=== PATIENT | male | born 1945 | race Caucasian/White ===

== ENCOUNTER → 2018-07-28 10:40 | Outpatient (BNVA) | payer MEDICARE, BC, SELFPAY | PROVIDERS: PCP Internal Medicine; Visit Provider Surgery | DX: D48.5 Neoplasm of uncertain behavior of skin (principal) | CPT/HCPCS: 99213 ==

== ENCOUNTER 2018-09-10 14:37 | Outpatient (REF) | payer MEDICARE, BC, SELFPAY ==
[2018-09-10 21:51] LABS: Hemoglobin A1C 5.9 % (4.5-6.2)
[2018-09-10 22:29] LABS: Anion Gap 8.5 mmol/L (3-11); BUN 21 mg/dL (7-18); CO2 28.5 mmol/L (21.0-32.0); CREATININE 1.15 mg/dL (0.70-1.30); Calcium 9.4 mg/dL (8.5-10.1); Chloride 105 mmol/L (98-107); Glucose 91 mg/dL (70-100); Potassium 4.5 mmol/L (3.5-5.1); Sodium 142 mmol/L (136-145); TSH 1.12 uIU/mL (0.358-3.74); Vitamin B12 444 pg/mL (193-986)
[2018-09-13 13:25] LABS: Albumin 64.3 % (55.8-66.1); Total Protein 6.8 g/dl (6.3-8.2)
== END 2018-09-10 14:57 ==
LOC: NCHCN 14:37
PROVIDERS: PCP Internal Medicine; Visit Provider Internal Medicine
DX: G60.9 Hereditary and idiopathic neuropathy, unspecified (principal); Z86.2 Personal history of diseases of the blood and blood-forming organs and certain disorders involving the immune mechanism
CPT/HCPCS: 80048; 82607; 83036; 83735; 84165; 84443

== ENCOUNTER 2018-09-14 10:14 | Outpatient (REF) | payer MEDICARE, BC, SELFPAY ==
[2018-09-16 12:30] LABS: Hepatitis C Ab w Rflx HCV PCR Negative (NEGAT)
[2018-09-16 15:17] LABS: Albumin 64.9 % (55.8-66.1); Total Protein 5.8 g/dl (6.3-8.2)
== END 2018-09-14 10:34 ==
LOC: NCHCN 10:14
PROVIDERS: PCP Internal Medicine; Visit Provider Internal Medicine
DX: G60.9 Hereditary and idiopathic neuropathy, unspecified (principal); R03.0 Elevated blood-pressure reading, without diagnosis of hypertension; M72.2 Plantar fascial fibromatosis; F41.9 Anxiety disorder, unspecified; Z11.59 Encounter for screening for other viral diseases
CPT/HCPCS: 86803; 84165

== ENCOUNTER → 2018-11-26 12:47 | Outpatient (BNVA) | payer MEDICARE, BC, SELFPAY | PROVIDERS: PCP Internal Medicine; Referring Provider Internal Medicine; Visit Provider Surgery | DX: L72.0 Epidermal cyst (principal) | CPT/HCPCS: 99212; 99213 ==

== ENCOUNTER → 2018-12-03 12:58 | Outpatient (BNVA) | payer MEDICARE, BC, SELFPAY | PROVIDERS: PCP Internal Medicine; Referring Provider Internal Medicine; Visit Provider Surgery | DX: L72.8 Other follicular cysts of the skin and subcutaneous tissue (principal) | CPT/HCPCS: 11420 ==

== ENCOUNTER 2018-12-03 14:17 | Outpatient (REF) | payer MEDICARE, BC, SELFPAY ==
--- NOTE | 2018-12-03 13:15 | SKI_PTH ---
PATIENT: Jens Ayala LOC: [facility] U#:[id number] AGE/SX: 73/M ROOM: RE12/03/[address]: Taryn Conti MD : [id number] BED: DIS: 12/03/2018 SPEC #: [id number] RECD: 12/03/18 17:25 STATUS: GISELA REJeni #: [id number] DUNIA: 12/03/18 13:[address]: Taryn Conti DEPT: Surgical Specimen RECD BY: Aleksandra Pablo ENTERED: 12/03/18 17:26 SP TYPE: SKI OTHR DR: Collin Aburto Tissues: 1 - SKIN CYST/TAG/DEBRIDEMENT Procedures: SKIN BIOPSY LEVEL 3 Comments: [id number]
== END 2018-12-03 14:37 ==
LOC: LBN 14:17
PROVIDERS: PCP Internal Medicine; Visit Provider Surgery
DX: L72.8 Other follicular cysts of the skin and subcutaneous tissue (principal)
CPT/HCPCS: 88304

== ENCOUNTER 2019-02-08 09:14 | Emergency (ER) | payer MEDICARE, BC, SELFPAY ==
--- NOTE | 2019-02-08 09:23 | W.ED.GENAD ---
Discharge Plan Disposition Patient Disposition: HOME Condition: Improving Discharge Details Chief Complaint: Cellulitis Clinical Impression: Abscess Primary Care Provider: Collin Aburto ED Provider: Tanna Esteves Home Meds and New Rx's Prescriptions: Continued alprazolam [Xanax] 0.25 mg tablet 0.125 mg PO BID RF: 0 Narcan 4 mg/actuation spray,non-aerosol 1 spray ADEN ONCE PRNRF: 0 eszopiclone [Lunesta] 3 MG tablet 3 mg PO DAILY RF: 0 amitriptyline 100 MG tablet 100 mg PO DAILY RF: 0 atorvastatin [Lipitor] 20 MG tablet 20 mg PO HS RF: 0 tamsulosin 0.4 MG capsule 0.8 mg PO HS RF: 0 hydrocodone-acetaminophen 1 TAB tablet 1 tab PO PRN PRNRF: 0 Discharge Instructions Instructions: Abscess (ED) Additional Instructions: You have declined drainage at this time. As this is improving, this is a very reasonable course. Keep area clean. Continue to monitor for worsening symptoms including increased pain, fevers/chills, spreading of the redness. If these or other new/worsening symptoms arise please seek care urgently once again. Please follow up with primary care Thursday for reevaluation. Referrals: Collin Aburto MD [Primary Care Provider] - Medical Decision Making Patient is 73-year-old male presents today with chief complaint of abscess in the right buttock. He reports he first noticed the symptoms a few days ago. States he was seen by his primary care yesterday who advised watchful waiting. He denies any fevers or chills. On exam, the patient has an 8 mm area of erythema with a central darkened area. I did question if he is noticing drainage from this and he denies this. States that he is having burning in that area, particular when sitting on this. Patient is very concerned as he supposed to fly soon. I do not see any surrounding erythema to suggest cellulitis. I do not palpate any fluctuance. I did evaluate this with an ultrasound and do see a small fluid that is tracking inferior to the wound itself. I advised that we would attempt needle aspiration. However, when I went to perform this the patient advised that this is greatly improved from yesterday and he would prefer watchful waiting. Advise follow-up with primary care in 1 week if not improving. We discussed new/worsening symptoms that should prompt urgent evaluation once again. All his questions and concerns were addressed and he is in agreement with this plan. HPI General Mode of arrival: ambulatory. Date/Time Provider Initiated Documentation: 02/08/19 09:21. Limitations to Documentation: no limitations. Information obtained by: patient and RN notes reviewed. History of Present Illness 73 year old M presents to the emergency department with the chief complaint of abscess on right side of buttock, described as moderate, with intensity rated at 8. Quality is described as aching, and is localized to the buttocks. Patient reports no radiation. Patient started experiencing this day(s) and it has been constant. No relieving factors improve symptom(s), No exacerbating factors reported . Patient notes no other symptoms.; denies fever/chills. Patient did receive the following treatments prior to arrival, none Related Data Home Medications Medication Instructions Recorded Confirmed amitriptyline 100 mg PO DAILY 06/10/15 02/08/19 eszopiclone [Lunesta] 3 mg PO DAILY 06/10/15 02/08/19 atorvastatin [Lipitor] 20 mg PO HS 06/11/15 02/08/19 hydrocodone-acetaminophen 1 tab PO PRN PRN 06/11/15 02/08/19 tamsulosin 0.8 mg PO HS 06/11/15 02/08/19 alprazolam 0.25 mg tablet 0.125 mg PO BID 07/19/18 02/08/19 naloxone 4 mg/actuation nasal spray 1 spray ADEN ONCE PRN 07/19/18 02/08/19 Allergies Allergy/AdvReac Type Severity Reaction Status Date / Time triazolam [From Halcion] Allergy Severe unknown Verified 02/08/19 09:19 Review of Systems Constitutional Reports as per HPI, Denies chills and Denies fever(s) Musculoskeletal Reports as per HPI Integumentary/Breasts Reports as per HPI Neurologic Reports as per HPI, Denies sensory deficit and Denies paresthesias [facility] Medical History BPH (benign prostatic hyperplasia) (Chronic) Hyperlipidemia (Chronic) Depression (Chronic) Insomnia (Chronic) ADD (attention deficit disorder) (Chronic) Tinnitus (Chronic) Restless leg (Chronic) Hyperacusis (Acute) Anxiety (Chronic) Sebaceous cyst (Acute) Plantar fasciitis (Chronic) Elevated blood pressure reading (Chronic) Surgical History H/O excision of epidermal inclusion cyst (Acute ~12/03/18) H/O elbow surgery (Resolved) S/P TURP (status post transurethral resection of prostate) (Resolved) Social History Smoking/Tobacco Use Status: Never Alcohol Intake: current Alcohol Intake frequency: holidays/special occasions only Drug use: Never Substance use type: does not use Do you feel safe in your relationship?: Yes Exam Const General: cooperative, healthy appearing, comfortable, no acute distress and well developed Nutritional Appearance: average body habitus and well nourished Orientation: alert and awake Resp Effort & Inspection: normal respiratory effort, able to speak in complete sentences and no respiratory distress Cardio Rate: regular rate Rhythm: regular rhythm Skin General skin exam: erythema (induration and erythema approximately 8 mm in diameter medial right buttock) and no fluctuance Neuro General: alert and awake Cognition: normal cognition Speech: speech normal Gait: normal gait Sensory Exam: no sensory deficits noted Psych Appearance: grossly normal and well kempt Mental Status: mental status grossly normal Speech and Movement: speech and movement normal
[2019-02-08 09:24] VITALS: BP 130/78; PULSE 67; RESP 18; TEMP 36.7; O2SAT 100
--- NOTE | 2019-02-08 09:52 | ED.GENADUL_ITS ---
Discharge Plan Disposition Patient Disposition: HOME Condition: Improving Discharge Details Chief Complaint: Cellulitis Clinical Impression: Abscess Primary Care Provider: Collin Aburto ED Provider: Tanna Esteves Home Meds and New Rx's Prescriptions: Continued alprazolam [Xanax] 0.25 mg tablet 0.125 mg PO BID RF: 0 Narcan 4 mg/actuation spray,non-aerosol 1 spray ADEN ONCE PRNRF: 0 eszopiclone [Lunesta] 3 MG tablet 3 mg PO DAILY RF: 0 amitriptyline 100 MG tablet 100 mg PO DAILY RF: 0 atorvastatin [Lipitor] 20 MG tablet 20 mg PO HS RF: 0 tamsulosin 0.4 MG capsule 0.8 mg PO HS RF: 0 hydrocodone-acetaminophen 1 TAB tablet 1 tab PO PRN PRNRF: 0 Discharge Instructions Instructions: Abscess (ED) Additional Instructions: You have declined drainage at this time. As this is improving, this is a very reasonable course. Keep area clean. Continue to monitor for worsening symptoms including increased pain, fevers/chills, spreading of the redness. If these or other new/worsening symptoms arise please seek care urgently once again. Please follow up with primary care Thursday for reevaluation. Referrals: Collin Aburto MD [Primary Care Provider] - Medical Decision Making Patient is 73-year-old male presents today with chief complaint of abscess in the right buttock. He reports he first noticed the symptoms a few days ago. States he was seen by his primary care yesterday who advised watchful waiting. He denies any fevers or chills. On exam, the patient has an 8 mm area of erythema with a central darkened area. I did question if he is noticing drainage from this and he denies this. States that he is having burning in that area, particular when sitting on this. Patient is very concerned as he supposed to fly soon. I do not see any surrounding erythema to suggest cellulitis. I do not palpate any fluctuance. I did evaluate this with an ultrasound and do see a small fluid that is tracking inferior to the wound itself. I advised that we would attempt needle aspiration. However, when I went to perform this the patient advised that this is greatly improved from yesterday and he would prefer watchful waiting. Advise follow-up with primary care in 1 week if not improving. We discussed new/worsening symptoms that should prompt urgent evaluation once again. All his questions and concerns were addressed and he is in agreement with this plan. HPI General Mode of arrival: ambulatory . Date/Time Provider Initiated Documentation: 02/08/19 09:21 . Limitations to Documentation: no limitations . Information obtained by: patient and RN notes reviewed . History of Present Illness 73 year old M presents to the emergency department with the chief complaint of abscess on right side of buttock, described as moderate, with intensity rated at 8. Quality is described as aching, and is localized to the buttocks. Patient reports no radiation. Patient started experiencing this day(s) and it has been constant. No relieving factors improve symptom(s), No exacerbating factors reported . Patient notes no other symptoms.; denies fever/chills. Patient did receive the following treatments prior to arrival, none Related Data Home Medications Medication Instructions Recorded Confirmed amitriptyline 100 mg PO DAILY 06/10/15 02/08/19 eszopiclone [Lunesta] 3 mg PO DAILY 06/10/15 02/08/19 atorvastatin [Lipitor] 20 mg PO HS 06/11/15 02/08/19 hydrocodone-acetaminophen 1 tab PO PRN PRN 06/11/15 02/08/19 tamsulosin 0.8 mg PO HS 06/11/15 02/08/19 alprazolam 0.25 mg tablet 0.125 mg PO BID 07/19/18 02/08/19 naloxone 4 mg/actuation nasal spray 1 spray ADEN ONCE PRN 07/19/18 02/08/19 Allergies Allergy/AdvReac Type Severity Reaction Status Date / Time triazolam [From Halcion] Allergy Severe unknown Verified 02/08/19 09:19 Review of Systems Constitutional Reports as per HPI, Denies chills and Denies fever(s) Musculoskeletal Reports as per HPI Integumentary/Breasts Reports as per HPI Neurologic Reports as per HPI, Denies sensory deficit and Denies paresthesias [facility] Medical History BPH (benign prostatic hyperplasia) (Chronic) Hyperlipidemia (Chronic) Depression (Chronic) Insomnia (Chronic) ADD (attention deficit disorder) (Chronic) Tinnitus (Chronic) Restless leg (Chronic) Hyperacusis (Acute) Anxiety (Chronic) Sebaceous cyst (Acute) Plantar fasciitis (Chronic) Elevated blood pressure reading (Chronic) Surgical History H/O excision of epidermal inclusion cyst (Acute ~12/03/18) H/O elbow surgery (Resolved) S/P TURP (status post transurethral resection of prostate) (Resolved) Social History Smoking/Tobacco Use Status: Never Alcohol Intake: current Alcohol Intake frequency: holidays/special occasions only Drug use: Never Substance use type: does not use Do you feel safe in your relationship?: Yes Exam Const General: cooperative, healthy appearing, comfortable, no acute distress and well developed Nutritional Appearance: average body habitus and well nourished Orientation: alert and awake Resp Effort & Inspection: normal respiratory effort, able to speak in complete sentences and no respiratory distress Cardio Rate: regular rate Rhythm: regular rhythm Skin General skin exam: erythema (induration and erythema approximately 8 mm in diameter medial right buttock) and no fluctuance Neuro General: alert and awake Cognition: normal cognition Speech: speech normal Gait: normal gait Sensory Exam: no sensory deficits noted Psych Appearance: grossly normal and well kempt Mental Status: mental status grossly normal Speech and Movement: speech and movement normal
== END 2019-02-08 10:03 | disposition home or self-care (01) ==
PROVIDERS: Emergency Provider Physician Assistant; PCP Internal Medicine
DX: L02.31 Cutaneous abscess of buttock (principal)
CPT/HCPCS: 99282

== ENCOUNTER 2023-02-03 14:24 | Outpatient (REF) | payer MEDICARE, SELFPAY ==
[2023-02-03 22:42] LABS: PSA, Screening 3.4 ng/mL (<=6.5)
== END 2023-02-03 14:25 | disposition home or self-care (01) ==
LOC: NCHCN 14:24
PROVIDERS: PCP Internal Medicine; Visit Provider Family Medicine
DX: R97.20 Elevated prostate specific antigen [PSA] (principal); Z12.5 Encounter for screening for malignant neoplasm of prostate
CPT/HCPCS: 84153

== ENCOUNTER → 2023-06-01 10:42 | Outpatient (BNVA) | payer MEDICARE, SELFPAY | PROVIDERS: PCP Family Medicine; Referring Provider Family Medicine; Visit Provider Surgery | DX: K40.90 Unilateral inguinal hernia, without obstruction or gangrene, not specified as recurrent (principal); R63.4 Abnormal weight loss; Z63.4 Disappearance and death of family member | CPT/HCPCS: 99202; 99203 ==

== ENCOUNTER 2023-06-08 13:46 | Outpatient (REF) | payer MEDICARE, SELFPAY ==
[2023-06-08 14:53] LABS: HCT 44.5 % (40.0-50.0); HGB 14.6 g/dL (13.5-17.5); MCH 30.5 pg (27.0-33.0); MCHC 32.8 % (32.0-36.0); MCV 93 fL (80-95); MPV 10.8 fL (8.0-11.0); Platelet Count 239 10^3/uL (130-400); RBC 4.79 10^6/uL (4.36-5.78); RDW 13.3 % (11.8-14.1); RDW-SD 46.1 fL; WBC 4.76 10^3/uL (4.4-10.8)
[2023-06-08 15:53] LABS: ALT 36 U/L (16-63); AST 24 U/L (15-37); Albumin 4.1 g/dL (3.4-5.0); Alkaline Phosphatase 135 U/L (46-116); Anion Gap 10.2 mmol/L (3-11); BUN 24 mg/dL (7-18); Bilirubin, Total 0.4 mg/dL (0.2-1.0); CO2 27.8 mmol/L (21.0-32.0); CREATININE 0.9 mg/dL (0.70-1.30); Calcium 9.7 mg/dL (8.5-10.1); Chloride 106 mmol/L (98-107); Estimated GFR 88.51 (mL/min/1.73m2); Glucose 89 mg/dL (74-106); Sodium 144 mmol/L (136-145); Total Protein 7.1 g/dL (6.4-8.2)
== END 2023-06-08 13:47 | disposition home or self-care (01) ==
LOC: NCHCN 13:46
PROVIDERS: PCP Family Medicine; Visit Provider Family Medicine
DX: R73.03 Prediabetes (principal); K40.90 Unilateral inguinal hernia, without obstruction or gangrene, not specified as recurrent; R00.2 Palpitations; R03.0 Elevated blood-pressure reading, without diagnosis of hypertension
CPT/HCPCS: 80053; 85027; 84443

== ENCOUNTER 2023-06-10 06:23 | Day surgery (SDC) | payer MEDICARE, SELFPAY ==
[2023-06-10] VITALS (12 sets, daily range): BP systolic 123–139; BP diastolic 55–76; PULSE 50–76; RESP 14–18; TEMP 36.3–36.6; O2SAT 97–100; BMI 19.7
--- NOTE | 2023-06-10 06:32 | W.PM.PROGNOT ---
Date of Service Date of service: 06/10/23 Time of Service: 07:12 Assessment and Plan Assessment and plan (1) Right inguinal hernia: Status: Acute Assessment and plan: Mr. Ayala is a pleasant 77-year-old gentleman in good health who comes in because of a right inguinal hernia which she first noticed about 3 weeks ago when coughing.? On examination he has a small right inguinal hernia which at this time is reducible.? We reviewed the anatomy and the pathophysiology of hernias.? We reviewed the risk of incarceration and strangulation.? We went over the surgery in detail using a pamphlet as well as its possible complications.? After our conversation he had a good understanding of the procedure and wished to proceed.? Risks, benefits and complications have been reviewed. Complications include but are not limited to bleeding, pain, infection, injury to underlying structures like bowel, recurrence, hematoma, seroma, chronic pain and adverse reaction to the medication.? Questions were entertained and answered to their satisfaction and they wished to proceed. No guarantees were given or implied. Subjective Subjective Interval history since last seen: Patient seen in SDS. He has no new questions. HE has had no new symptoms. he does feel like the hernia is slightly larger then when I saw him in the office Exam Const General: cooperative, comfortable and no acute distress Resp Effort & Inspection: normal respiratory effort GI Other: Right inguinal area marked in SDS Time Spent with Patient Time Spent with Patient: <25 minutes Time was spent: care coordination
--- NOTE | 2023-06-10 06:33 | W.PM.OP ---
Date of service: 06/10/23 Time of Service: 08:31 Operative Note Operative Note DATE OF PROCEDURE: 06/10/23 PRE-OP DIAGNOSIS: right inguinal hernia POST-OP DIAGNOSIS: other (Right direct and indirect inguinal hernia) PROCEDURE: Right inguinal hernia repair with mesh SURGEON: Taryn Conti WINE STEWARD: Margie Villa ANESTHESIA TYPE: Local By Surgeon and General LMA/ETT Refer to Anesthesia Record ESTIMATED BLOOD LOSS: 5 PATHOLOGY: none sent COMPLICATIONS: None Patient was transported to: PACU Patient's condition: stable Implants: PERFIX Light Plug: REF- [id number] [id number] 2027-11-26 Indications: Mr. Ayala is a pleasant 77-year-old gentleman in good health who comes in because of a right inguinal hernia which she first noticed about 3 weeks ago when coughing.? On examination he has a small right inguinal hernia which at this time is reducible.? We reviewed the anatomy and the pathophysiology of hernias.? We reviewed the risk of incarceration and strangulation.? We went over the surgery in detail using a pamphlet as well as its possible complications.? After our conversation he had a good understanding of the procedure and wished to proceed.? Risks, benefits and complications have been reviewed. Complications include but are not limited to bleeding, pain, infection, injury to underlying structures like bowel, recurrence, hematoma, seroma, chronic pain and adverse reaction to the medication.? Questions were entertained and answered to their satisfaction and they wished to proceed. No guarantees were given or implied. Findings: Small indirect hernia and moderate sized direct hernia Procedure Description: After informed concent was obtained the patient was taken to the operating room and placed in a supine position. Monitors and SCDs were applied and a timeout was done. The patient's name, date of , procedure type, procedure site, allergies to medications, preoperative antibiotic, and DVT prophylaxis were all reviewed. Fire risk was assessed. Next anesthesia did a tap block on the right side under ultrasound guidance. Please see their separate dictation. Once anesthesia was done the abdomen was prepped and draped in a sterile surgical fashion. 0.5% Marcaine was injected into the dermis in the right lower quadrant. An incision was made with a 10 blade in the right lower quadrant. Dissection was done with cautery through the subcutaneous tissues and Patel's fascia down to the external oblique fascia. The external ring was identified and the external oblique fascia was opened sharply through the external ring. The cut fascia was grasped with hemostats the cord structures were identified and a Fisher drain was placed around them. The ilioinguinal nerve was identified and cut. The cremasteric muscle was dissected away from the cord structures using both cautery and blunt dissection. Some preperitoneal fat was identyified coming through a small indirect hernia defect. A medium plug was placed into the indirect defect and secured with 3-0 proline. A flat piece of mesh was then attached to the lacunar ligament using a 2-0 Prolene double armed suture. The mesh was secured laterally and medially with a 2-0 Prolene, with a running suture. The tails of the mesh were wrapped around the cord structures effectively cinching down the internal ring. Once the mesh was secured the tissues were irrigated with some normal saline. No bleeding was identified. The external oblique fascia was reapproximated using 2-0 Vicryl running suture. The Patel's fascia was reapproximated using interrupted 3-0 Vicryl. The dermis was reapproximated with a running 4-0 Monocryl. The skin was cleaned and dried and skin affix was applied. The patient was woken up and taken back to recovery in stable condition. There were no immediate complications. Sponge, instrument and needle counts were correct at the end of the case x2.
--- NOTE | 2023-06-10 06:35 | W.PM.DSUDISC ---
Date of service: 06/10/23 Time of Service: 10:27 Discharge Plan Disposition Patient Disposition: Home Condition: Stable Discharge Details Reason For Visit: inguinal hernia Attending Provider: Taryn Conti Primary Care Provider: Jose David Sheriff Home Meds and New Rx's Prescriptions: New hydrocodone-acetaminophen 5-325 mg tablet 1 tab PO Q6H PRNQty: 14 0RF Continued clonazepam 0.125 mg tablet,disintegrating 0.125 mg PO DAILY PRN ketoconazole 2 % cream 1 applic topical DAILY PRN (Reason: Fungal toenails) 90 Days Qty: 60 0RF naproxen [EC-Naproxen] 500 mg tablet,delayed release (DR/EC) 500 mg PO BID Qty: 30 0RF eszopiclone [Lunesta] 3 MG tablet 3 mg PO DAILY amitriptyline 100 MG tablet 100 mg PO DAILY atorvastatin [Lipitor] 20 MG tablet 20 mg PO HS Linzess 145 mcg capsule 1 mcg Patient Comments: TAKE ONE CAPSULE BY MOUTH EVERY DAY venlafaxine 225 mg tablet extended release 24hr PO Patient Comments: Take 1 tablet by mouth once a day Discharge Instructions Instructions: Inguinal Hernia Repair (DC) Additional Instructions: Activity at Home after surgery: 1. Make sure you walk outside at least 4 times per day 2. You should be able to climb a flight of stairs 3. No driving while in pain or taking pain medications 4. No strenuous activity or heavy lifting (no more then 10 lb) for 4 weeks (open surgery) Diet, Nutrition, & wound healin. Avoid alcohol until after you are recovered from your surgery 2. Make sure to eat plenty of lean protein (meat, fish, eggs, cottage cheese, beans) 3. Eat a variety of fruits and vegetables. Eat plenty of high fiber foods to avoid constipation. 4. Drink plenty of liquids to stay hydrated and avoid constipation Pain Medications: 1. Ibuprofen 600 mg every 6 hours as needed. 2. If a narcotic has been prescribed take as directed only for breakthrough pain For Constipation: 1. Take Milk of Magnesia or MiraLax as needed for constipation Other: 1. You may shower daily. Do not scrub the incisions 2. Do not soak the incisions for 1 week 3. You may alternate ice and heat as needed for pain and swelling Wound Care: 1. Keep the incisions clean and dry Please call our office if you develop: 1. Fevers >101.5 2. Nausea or Vomiting 3. Worsening pain 4. Redness and thick discharge from the wounds If after hours please call the Hospital at and ask to speak to the on-call surgeon Referrals: Taryn Conti MD [ [facility] STAFF PHYSICIAN] - Activity:: as above Remove Dressings/Wound Care:: Do Not Remove Shower/Bathe:: 24 hours Diet:: As Tolerated Discharge Orders Discharge Orders: Discharge Order (Routine); Ordered 06/10/23 Ordered By: Taryn Conti DS: Diagnosis Discharge Diagnosis (1) Right inguinal hernia: Status: Acute Asessment and Plan: The patient is doing well post-op from his right inguinal hernia surgery.? he is not having any nausea or vomiting. He is tolerating liquids and a snack. The pt is not having any chest pain or SOB.? Their pain is adequately controlled. They have been able to urinate.? ?HEENT:? no eye pain/drainage/redness/swelling. Mild sore throat ?Cardio- NSR, no chest pain, BP stable- see VS record ?Pulm: no sob or productive cough. No hemoptysis ?Incision- dressing is c/d/i w/ no excessive bleeding or drainage ?I discussed with the patient the findings at the time of surgery and the patient?s progress. ?We reviewed expectations at home; what the patient could expect for recovery time, and in the post-operative period.? We discussed the importance of walking to avoid blood clots and pneumonia.? We discussed and reviewed the patient's post-operative wound care and dressing needs.?? We reviewed their step-vargas pain management plan, Rx called to the pharmacy of their choice.? We reviewed activity and limitations-see discharge instructions. We reviewed warning signs, and when to seek medical attention- see d/c instructions.?? Patient was given a postoperative follow-up appointment. Patient verbalized understanding of their postoperative instructions, how do to take care of themselves and their incision, and the pain management plan. Please see discharge instructions.?
--- NOTE | 2023-06-10 06:49 | W.ANESPRE ---
General Info Date of Service Date Performed: 06/10/23 Height: 6 ft Weight: 65.9 kg Body Mass Index (BMI): 19.7 Surgical Procedure: Operation Date: 06/10/23 07:40 Proposed Procedure Side Surgeon p Herniorrhaphy Inguinal w/Mesh Right Taryn Conti MD Meds Allergies and Home Medications Allergies Allergy/AdvReac Type Severity Reaction Status Date / Time triazolam [From Halcion] Allergy Severe unknown Verified 06/10/23 06:43 Home Medication Medication Instructions Recorded amitriptyline 100 mg tablet 100 mg PO DAILY 06/10/15 eszopiclone 3 mg tablet (Lunesta) 3 mg PO DAILY 06/10/15 atorvastatin 20 mg tablet (Lipitor) 20 mg PO HS 06/11/15 clonazepam 0.125 mg disintegrating 0.125 mg PO DAILY PRN 04/21/23 tablet ketoconazole 2 % topical cream 1 applic topical DAILY PRN Fungal 04/21/23 toenails 3 months #60 grams naproxen 500 mg tablet,delayed 500 mg PO BID #30 tabs 05/12/23 release (EC-Naproxen) linaclotide 145 mcg capsule 1 mcg 06/10/23 (Linzess) venlafaxine 225 mg tablet,extended mg PO 06/10/23 release 24 hr Current Visit Medications: Current Medications Generic Name Dose Route Start Last Admin Trade Name Freq PRN Reason Stop Dose Admin Acetaminophen 1,000 mg 06/10/23 06:00 Acetaminophen 500 Mg Tab PO 07/09/23 23:59 PREOP LIVE Celecoxib 200 mg 06/10/23 06:00 Celecoxib 200 Mg Cap PO 07/09/23 23:59 PREOP LIVE Gabapentin 600 mg 06/10/23 06:00 Gabapentin 300 Mg Cap PO 07/09/23 23:59 PREOP LIVE Ringer's Solution 1,000 mls @ 80 mls/hr 06/10/23 06:00 IV 07/09/23 23:59 INFUSION LIVE Cefazolin Sodium/Dextrose 2 gm in 50 mls @ 100 mls/hr 06/10/23 06:00 Ancef Duplex IVPB 07/09/23 23:59 PREOP LIVE Ondansetron HCl 4 mg/ Sodium 52 mls @ 200 mls/hr 06/10/23 06:37 Chloride IVPB 07/10/23 06:36 Q6H PRN PRN IV Miscellaneous Supplies 1 each 06/10/23 06:00 Iv Access IV 07/09/23 23:59 DIRECTED LIVE Sodium Chloride 0 ml 06/10/23 06:00 Normal Saline Flush 10 Ml Syr IV 07/09/23 23:59 PRN PRN Sodium Chloride 0 ml 06/10/23 06:00 Normal Saline 10 Ml Vial IJ 07/09/23 23:59 DIRECTED PRN Sterile Water 0 ml 06/10/23 06:00 Water,Injection,Sterile 10 Ml Vial IJ 07/09/23 23:59 DIRECTED PRN Tramadol HCl 50 mg 06/10/23 06:37 Tramadol 50 Mg Tab PO 07/10/23 06:36 Q6H PRN PRN Pain PFSH Active Problems Active Problems: Problem Status Onset Code Right inguinal hernia K40.90 Left knee pain M25.562 Right elbow tendinitis M77.8 Elevated blood pressure reading R03.0 Sebaceous cyst L72.3 Anxiety F41.9 Hyperacusis H93.239 Restless leg G25.81 Tinnitus H93.19 ADD (attention deficit disorder) F98.8 Insomnia G47.00 Depression F32.9 Hyperlipidemia E78.5 BPH (benign prostatic hyperplasia) N40.0 Neoplasm of uncertain behavior of skin D48.5 H/O excision of epidermal inclusion cyst ~12/03/18 Z98.890, Z87.2 Onychomycosis B35.1 PAD (peripheral artery disease) I73.9 Achilles tendon contracture, bilateral M67.01, M67.02 Plantar fasciitis, right M72.2 Tarsal tunnel syndrome, right lower limb G57.51 Medical History Medical History Plantar fasciitis Surgical History Surgical History H/O elbow surgery fascial release for ulnar nerve entrapment S/P TURP (status post transurethral resection of prostate) Tobacco Smoking/Tobacco Use Status: Never Alcohol Alcohol Intake: current Alcohol intake frequency: holidays/special occasions only Substance Use Substance use: Never Substance use type: does not use Vital Signs and Lab Results Vital Signs Most Recent Vital Signs in EMR: Most Recent Vital Signs Temp Pulse Resp BP Pulse Ox 36.6 C 76 17 131/75 99 06/10/23 06:35 06/10/23 06:35 06/10/23 06:35 06/10/23 06:35 06/10/23 06:35 Lab Results Blood Type / Crossmatch: No Data to Display Complete Blood Count: White Blood Count 4.76 10^3/uL (4.4-10.8) 06/08/23 10:00 Red Blood Count 4.79 10^6/uL (4.36-5.78) 06/08/23 10:00 Hemoglobin 14.6 g/dL (13.5-17.5) 06/08/23 10:00 Hematocrit 44.5 % (40.0-50.0) 06/08/23 10:00 Platelet Count 239 10^3/uL (130-400) 06/08/23 10:00 Complete Metabolic Panel: Sodium 144 mmol/L (136-145) 06/08/23 10:00 Potassium 4.0 mmol/L (3.5-5.1) 06/08/23 10:00 Chloride 106 mmol/L (98-107) 06/08/23 10:00 Carbon Dioxide 27.8 mmol/L (21.0-32.0) 06/08/23 10:00 BUN 24 mg/dL (7-18) H 06/08/23 10:00 Creatinine 0.9 mg/dL (0.70-1.30) 06/08/23 10:00 Est GFR (CKD-EPI 2020) 88.51 (mL/min/1.73m2) 06/08/23 10:00 Calcium 9.7 mg/dL (8.5-10.1) 06/08/23 10:00 Albumin 4.1 g/dL (3.4-5.0) 06/08/23 10:00 Glucose 89 mg/dL (74-106) 06/08/23 10:00 Liver Function Panel: Alanine Aminotransferase (ALT/SGPT) 36 U/L (16-63) 06/08/23 10:00 Aspartate Amino Transf (AST/SGOT) 24 U/L (15-37) 06/08/23 10:00 Coagulation Panel: No Data to Display Cardiac Panel: No Data to Display Arterial Blood Gas: No Data to Display Venous Blood Gas: No Data to Display Pancreas Panel: No Data to Display Thyroid Panel: Thyroid Stimulating Hormone (TSH) 1.50 uIU/mL (0.36-3.74) 06/08/23 10:00 Infectious Disease: No Data to Display Blood Cultures: No Data to Display Toxicology Panel: No Data to Display Imaging and Studies Imaging and Studies Study information below may be from another EMR and interpreted by another provider. Please see original notes in EMR for more complete details. Pulmonary Function Summary: Reviewed old PFT in record. Noted increased aeration after bronchodilator, per note patient did not note a difference except that he was coughing less. Anesthesia Assessment and Plan Anesthesia History Personal History: No History of Anesthesia Complications Family History: No Family History of Anesthesia Complications Exercise Tolerance Exercise Tolerance: Metabolic Equivalents>4 Pertinent Negatives Pertinent Negatives: No Symptoms of GERD, No Major Cardiovascular Symptoms or Complaints and No History of CVA/TIA Cardiac & Pulmonary Exam Cardiac Exam: Normal S1/S2 Heart Sounds Pulmonary Exam: Clear Bilateral Breath Sounds Implantable Cardiac Device Does patient have a Pacemaker or an ICD?: No Airway Exam Known Difficult Airway: No Mallampati Class: 2 Mouth Opening: Normal (> 3cm) Thyromental Distance: Greater than 3 cm Neck Range of Motion: Full ROM Neck Circumference: Normal Teeth Condition: Normal Dentition and Generalized Poor Dentition ASA Classification ASA Score: ASA 2 Emergency Case?: No NPO Status NPO Status: NPO Clears >2 hours, Solids >8 hours Anesthesia Plan Resuscitation Status: Full Code Anesthesia Technique: General Anesthesia Airway Planned: LMA Pain Management: Surgeon and patient request nerve block Monitors Used: Standard Monitors
[2023-06-10] MEDS: Gabapentin 300 MG CAP 600 MG PO (06:50)
[2023-06-10] MEDS: Celecoxib 200 MG CAP PO (06:51)
[2023-06-10] MEDS: Acetaminophen 500 MG TAB 1000 MG PO (06:51)
[2023-06-10] MEDS: Lactated Ringers 1,000 ML 80 ML IV (07:00)
[2023-06-10] MEDS: ceFAZolin 2 GM/50 ML BAG IVPB (07:52)
[2023-06-10] MEDS: Bupivacaine 0.25% Pres-Free 30 ML VIAL ×2 (08:02→08:23)
--- NOTE | 2023-06-10 08:10 | W.ANESNERVE ---
Nerve Block Single Injection Procedure Date and Time Date Performed: 06/10/23 Procedure Start: 07:52 Location Where Procedure Performed Procedure Location: Operating Room Procedure Stop: 07:59 Reason Performed: Postoperative Analgesia Requesting Provider: Taryn Conti Timeout Performed Timeout Performed: Yes Monitoring Used ECG, Blood Pressure and SpO2 Sterility Sterility: Hand Hygiene, Surgical Cap, Surgical Mask, Sterile Gloves and Chlorhexidine Sedation Given During Procedure Sedation Given (Indicate Dose Given): No Sedation given Patient Mental Status Patient Mental Status: Performed under general anesthesia Nerve Block 1st Nerve Block: Laterality: Right Block Type: TAP Unilateral Ultrasound Image Saved?: Yes Needle / Catheter Used: 100mm SonoPlex II Local Anesthetic Bolus (Indicate Dose Given): Injected in 3-5ml increments after negative blood aspiration and Bupivacaine 0.25% Dose:: 25 Additives (Indicate Dose Given): None Ultrasound: Sterile probe cover and gel used Nerve Stimulator: Not Used Paresthesia: None Procedure Tolerated: No Complications and Patient tolerated well Procedure Outcome: Successful Performed By: Vadim Rivero
[2023-06-10] MEDS: fentaNYL 100 MCG/2 ML VIAL IVP ×2 (09:05→09:15)
[2023-06-10] MEDS: HYDROmorphone 2 MG/ML SYR IVP ×2 (09:37→09:47)
--- NOTE | 2023-06-10 10:07 | W.ANESPOSTOP ---
Postoperative Evaluation Date, Time and Location Date Performed: 06/10/23 Time Performed: 10:03 Patient Location: PACU Vital Signs Most Recent Imported Vital Signs: Most Recent Vital Signs Temp Pulse Resp BP Pulse Ox 36.4 C L 59 L 15 139/60 99 06/10/23 09:37 06/10/23 09:57 06/10/23 09:57 06/10/23 09:57 06/10/23 09:57 Pain Score Most Recent Pain Score: Most Recent Pain Score Pain Level 4 06/10/23 09:57 Assessment Mental Status: Awake (Alert & Oriented to Patient Baseline) Airway and Respiratory Function: Patent airway with normal (patient baseline) respiratory exam Cardiovascular Function: Hemodynamically Stable Hydration Status: Adequately Hydrated Nausea & Vomiting: No Nausea or Vomiting Pain: Pain is tolerable per patient (Heading to [facility]SU and will receive another oral medication there. ) Peripheral Nerve Block: Patient did not receive a nerve block Postoperative Comments:: Split lower lip on left from manipulation of dry tissues, discussed at length with patient. All questions answered.
== END 2023-06-10 11:00 | disposition home or self-care (01) ==
PROVIDERS: PCP Family Medicine; Visit Provider Surgery
PROC: (CPT 49505; principal; 2023-06-10 07:30)
DX: K40.90 Unilateral inguinal hernia, without obstruction or gangrene, not specified as recurrent (principal)
CPT/HCPCS: 49505; 76942; C1781; J0690; J1100; J1170; J2405; J3010

== ENCOUNTER → 2023-06-23 08:49 | Outpatient (BNVA) | payer MEDICARE, SELFPAY | PROVIDERS: PCP Family Medicine; Referring Provider Family Medicine; Visit Provider Surgery | DX: Z48.817 Encounter for surgical aftercare following surgery on the skin and subcutaneous tissue (principal) ==

== ENCOUNTER → 2023-07-02 08:52 | Outpatient (BNVA) | payer MEDICARE, SELFPAY | PROVIDERS: PCP Family Medicine; Referring Provider Family Medicine | DX: M25.562 Pain in left knee (principal) | CPT/HCPCS: 20610; 99213; J1040 ==

== ENCOUNTER 2023-09-17 12:13 | Outpatient (CLI) | payer MEDICARE, SELFPAY ==
--- NOTE | 2023-09-17 08:00 | DI.RAD_ITS ---
Exam(s) XR KNEE LT 3V AP,LAT,TAMARA EXAM: XR KNEE LT 3V AP,LAT,TAMARA CLINICAL HISTORY: medial left knee injury. TECHNIQUE: 2D digital imaging was performed. Three views. FINDINGS: BONES: No acute fracture is present. No bony destructive lesion is seen. Enthesophyte upper pole o f the patella. JOINTS: The knee is normally aligned. No joint effusion is seen. Joint spaces are maintained. Mini mal spurring at the articular aspect of the patella. SOFT TISSUE: Vascular calcifications. IMPRESSION: Minimal degenerative changes at the patellofemoral joint. DATA REPOSITORY: RADIATION DOSE DELIVERED:
== END 2023-09-17 12:14 | disposition home or self-care (01) ==
LOC: DIORS 12:13
PROVIDERS: PCP Family Medicine; Referring Provider Family Medicine
DX: S80.02XA Contusion of left knee, initial encounter; X58.XXXA Exposure to other specified factors, initial encounter
CPT/HCPCS: 73562; 99214

== ENCOUNTER 2024-01-22 02:31 | Outpatient (CLI) | payer MEDICARE, SELFPAY ==
[2024-01-22 12:47] LABS: Iron 103 ug/dL (65-175); Total Iron Binding Capacity 336 ug/dL (250-450); Transferrin Sat 31 % (20-55)
== END 2024-01-22 02:32 | disposition home or self-care (01) ==
LOC: LBO 02:31
PROVIDERS: PCP Family Medicine; Visit Provider Family Medicine
DX: D64.9 Anemia, unspecified (principal); G25.81 Restless legs syndrome
CPT/HCPCS: 36415; 83540; 83550

== ENCOUNTER 2024-03-31 04:03 | Outpatient (CLI) | payer MEDICARE, SELFPAY ==
--- OUTSIDE RECORDS SUMMARY | 2024-03-31 04:07 | XMS_ITS | Encounter Summary ---
Author Organization [facility] Address [facility] [place] [address] Care Team Providers Care Bandmill Operator Name Role Phone Collin Aburto MD Primary Care Provider [phone] Encounter Details Date Type Department Care Team (Late st Contact Info) Description 06/13/2015 10:00 AM EDT Office [place] [address] Chester Garza III, MD [facility] [place] [address] Urinary retention Social History Tobacco Use Types Packs/Day Years Used Date Smoking Tobacco: Former Smokeless Tobacco: Never Alcohol Use Standard Drinks/Week Comments Yes 7 (1 standard drink = 0.6 oz pur e alcohol) Now and again. Sex and Gender Information Value Date Recorded Sex Assigned at Not on file Gender Identity Not on file Sexual Orientation Not on file documented as of this encounter Last Filed Vital Signs Vital Sign Reading Time Taken Comments Blood Pressure 140/70 06/13/2015 9:52 AM EDT Pulse 86 06/13/2015 9:52 AM EDT Temperature - - Respiratory Rate - - Oxygen Saturation 100% 06/13/2015 9:52 AM EDT Inhaled Oxygen Concentration - - Weight 72.6 kg (160 lb) 06/13/2015 9:52 AM EDT Height - - Body Mass Index 21.7 06/07/2015 3:14 PM EDT documented in this encounter Progress Notes * Chester Garza III, MD - 06/19/2015 11:06 AM EDT Pt was seen by nursing staff for voiding trial and CIC instruction. documented in this encounter Plan of Treatment Not on file documented as of this encounter Visit Diagnoses Diagnosis Urinary retention Retention of urine, unspecified documented in this encounter Care Teams Bandmill Operator Relationship Specialty Start Date End Date Collin Aburto MD [address] [place] [address] PCP - General 07/23/10 documented as of this encounter
--- OUTSIDE RECORDS SUMMARY | 2024-03-31 04:07 | XMS_ITS | Encounter Summary ---
Author Organization [facility] Address [facility] [place] [address] Care Team Providers Care Manager Process Excellence Name Role Phone Collin Aburto MD Primary Care Provider [phone] Reason for Visit * Reason Onset Date Comments Follow-up 04/10/2011 Encounter Details Date Type Department Care Team (Late st Contact Info) Description 04/10/2011 Telephone [place] [address] Jl Velasco MD [facility] [place] [address] Follow-up Social History Tobacco Use Types Packs/Day Years Used Date Smoking Tobacco: Former Smokeless Tobacco: Never Alcohol Use Standard Drinks/Week Comments Yes 0 (1 standard drink = 0.6 oz pur e alcohol) Now and again. Sex and Gender Information Value Date Recorded Sex Assigned at Not on file Gender Identity Not on file Sexual Orientation Not on file documented as of this encounter Miscellaneous Notes * Telephone Encounter - Cami Frias - 05/09/2011 2:44 PM EDT Done. documented in this encounter Plan of Treatment Not on file documented as of this encounter Visit Diagnoses Not on filedocumented in this encounter Care Teams Manager Process Excellence Relationship Specialty Start Date End Date Collin Aburto MD [address] [place] [address] PCP - General 07/23/10 documented as of this encounter
--- OUTSIDE RECORDS SUMMARY | 2024-03-31 04:07 | XMS_ITS | Encounter Summary ---
Author Organization [facility] [place] [address] Care Team Providers Care Community Recreation Programmer Name Role Phone Collin Aburto MD Primary Care Provider [phone] Encounter Details Date Type Department Care Team (Late st Contact Info) Description 08/12/2011 3:15 PM EST Follow-[place] [address] Stevie Altman MD [facility] [place] [address] Cognitive impairment (Primary Dx) Discharge Disposition: Home Social History Tobacco Use Types Packs/Day Years [...] Sign Reading Time Taken Comments Blood Pressure 141/42 08/12/2011 3:15 PM EST Pulse 82 08/12/2011 3:15 PM EST Temperature - - Respiratory Rate - - Oxygen Saturation - - Inhaled Oxygen Concentration - - Weight 74.8 kg (165 lb) 08/12/2011 3:15 PM EST Height 182.9 cm (6') 08/12/2011 3:15 PM EST Body Mass Index 22.38 08/12/2011 3:15 PM EST documented in this encounter Progress Notes * Stevie Altman MD - 08/12/2011 4:46 PM EST Jens Ayala is a patient of Dr. Collin Aburto. The patient and his return today to discuss the patient's cognitive impairment. The patient has been seen by Tomy Burr. She is trying to regulate the patient's sleeping disturbance. Apparently, he had neuropsychiatric testing, which did demonstrate some cognitive problems though the patient says that he was tired on the day of the testing. It was very difficult to get the patient's talking about his cognitive impairment. The patient feels it is related to stress and depression. He had been on quite a high dose of amitriptyline and is weaning himself down. This is apparently under the supervision of a therapist. The patient thinks that there may be some cognitive problems but does not feel that they are that significant. He still feels he is operating at a high level at work. The patient's is not as sure. She says that he has forgotten to pick her up at times. He also seems more forgetful. I had a long discussion with the patient's , approximately 40 minutes. We discussed about various strategies. The patient and his would like to see what the PET scanning shows. If there is a deficit then we can better discuss the cognitive impairment. At this point, they do not wish to pursue repeat neuropsychiatric testing. I also stressed to the patient that he needs to stay in communication with his therapist. If the depression increases, it may be worthwhile for the patient to be placed on a low dose of an SSRI. I discussed this all at great length with the patient and his . They understand and accept our plan. This was approximately a 40-minute visit spent in 40 minutes of discussing cognitive impairments and neuropsychiatric testing, sleep disturbances, what the PET scan would tell us, frontotemporal dementia as well as Alzheimer disease, and followup. documented in this encounter Plan of Treatment Not on file documented as of this encounter Results * PET-CT brain pet metabolic (09/02/2011 1:45 PM EST) Anatomical Region Laterality Modality Other 09/02/2011 1:45 PM EST Addenda Addendum on 10/21/2011 11:13 AM EST Addendum Begins HISTORY: ??Cognitive impairment, forgetfulness ? dementia. ?? Addendum Ends Addendum on 09/13/2011 1:46 PM EST Addendum Begins HISTORY: ??Cognitive impairment, forgetfulness ? dementia. ?? Addendum Ends Addendum on 09/12/2011 3:53 PM EST Addendum Begins HISTORY: ??Cognitive impairment, forgetfulness ? dementia. ?? Addendum Ends Addendum on 09/12/2011 12:23 PM EST Addendum Begins HISTORY: ??Cognitive impairment, forgetfulness ? dementia. ?? Addendum Ends Impressions 09/02/2011 4:50 PM EST IMPRESSION: 1. ??Normal FDG PET/CT of the brain. ?? Thank you for referring this patient to the [facility] PET Center. Film and interpretation reviewed by the attending Narrative 09/02/2011 4:50 PM EST PET/CT SCAN OF THE BRAIN DATE OF EXAM: ??September 02, 2011. ?? PROCEDURE: Following IV injection of 96-qdsxio-8-deoxyglucose (FDG) and a standard uptake period, a non-contrast CT scan followed by a PET scan was acquired of the brain. ??The non-contrast CT was used for anatomic localization and photon attenuation correction of the PET scan. Blood Glucose Level (mg/dL): ??74. ?? FDG Dose: ?? 7.7 mCi CORRELATIVE STUDIES: ??MRI dated 02/13/11. ?? CLINICAL HISTORY: ??Question dementia. ?? FINDINGS: ??Normal-appearing symmetric cortical activity in all regions including frontal, parietal, temporal, and occipital. ??Normal symmetric activity of the basal ganglia, thalami, and cerebellum. ??The CT demonstrates no gross structural abnormality. ?? Procedure Note Vivek Silveira MD - 10/21/2011 PET/CT SCAN OF THE BRAIN DATE OF EXAM: September 02, 2011. PROCEDURE: Following IV injection of 38-mqnaug-2-deoxyglucose (FDG) and a standard uptake period, a non-contrast CT scan followed by a PET scan was acquired of the brain. The non-contrast CT was used for anatomiclocalization and photon attenuation correction of the PET scan. Blood Glucose Level (mg/dL): 74. FDG Dose: 7.7 mCi CORRELATIVE STUDIES: MRI dated 02/13/11. CLINICAL HISTORY: Question dementia. FINDINGS: Normal-appearing symmetric cortical activity in all regions including frontal, parietal, temporal, and occipital. Normal symmetric activity of the basal ganglia, thalami, and cerebellum. The CTdemonstrates no gross structural abnormality. IMPRESSION IMPRESSION: 1. Normal FDG PET/CT of the brain. Thank you for referring this patient to the [facility] PET Center. Film and interpretation reviewed by the attending Stevie Altman MD IMG PET ORDERABLES documented in this encounter Visit Diagnoses Diagnosis Cognitive impairment- Primary Unspecified persistent mental disorders due to conditions classified elsewhere Cognitive impairment Unspecified persistent mental disorders due to conditions classified elsewhere documented in this encounter Care Teams Community Recreation Programmer Relationship Specialty Start Date End Date Collin Aburto MD [address] [place] [id number] PCP - General 07/23/10 documented as of this encounter
--- OUTSIDE RECORDS SUMMARY | 2024-03-31 04:07 | XMS_ITS | Encounter Summary ---
Author Organization [facility] [place] [address] Care Team Providers Care Ela Teacher Name Role Phone Collin Aburto MD Primary Care Provider [phone] Encounter Details Date Type Department Care Team (Late st Contact Info) Description 08/08/2011 [place] [address] Stevie Altman MD [facility] [place] [address] Social History Tobacco Use Types Packs/Day Years Used Date Smoking Tobacco: Former Smokeless Tobacco: Never Alcohol Use Standard Drinks/Week Comments Yes 0 (1 standard drink = 0.6 oz pur e alcohol) Now and again. Sex and Gender Information Value Date Recorded Sex Assigned at Not on file Gender Identity Not on file Sexual Orientation Not on file documented as of this encounter Plan of Treatment Not on file documented as of this encounter Visit Diagnoses Not on filedocumented in this encounter Care Teams Ela Teacher Relationship Specialty Start Date End Date Collin Aburto MD [address] [place] [address] PCP - General 07/23/10 documented as of this encounter
--- OUTSIDE RECORDS SUMMARY | 2024-03-31 04:07 | XMS_ITS | Encounter Summary ---
Author Organization [facility] Address [facility] [place] [address] Care Team Providers Care Senior Technical Architect Name Role Phone Collin Aburto MD Primary Care Provider [phone] Encounter Details Date Type Department Care Team (Late st Contact Info) Description 08/17/2023 Telephone [facility] at [facility] [id number] Harriet Acharya Social History Tobacco Use Types Packs/Day Years Used Date Smoking Tobacco: Never Assessed Sex and Gender Information Value Date Recorded Sex Assigned at Not on file Gender Identity Not on file Sexual Orientation Not on file documented as of this encounter Miscellaneous Notes * Telephone Encounter - Harriet Acharya - 08/17/2023 12:12 PM EST Spoke to patient regarding getting a FLATWORK FINISHER appointment. He has a referral to [facility] and they are scheduling into October. We do not have a referral on file. He is having ortho issues not something that we would see for first. I explained that he should start with Ortho and then if they deem necessary theycan send a referral to us. He has recently lost is and living alone and trying to fix a house that he had rented out. I explained that the RMD that sent the referral should be managing his pain until he can get into a pain provider whether that be us or [facility]. I advised that he could have a referral sent to us and we could review. documented in this encounter Plan of Treatment Not on file documented as of this encounter Visit Diagnoses Not on filedocumented in this encounter Care Teams Senior Technical Architect Relationship Specialty Start Date End Date Collin Aburto MD [address] [place] [address] PCP - General 07/23/10 documented as of this encounter
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
--- OUTSIDE RECORDS SUMMARY | 2024-03-31 04:07 | XMS_ITS | Clinical Summary ---
Author Organization [facility] Address [facility] [place] [address] Care Team Providers Care Bailing Machine Operator Name Role Phone Collin Aburto MD Primary Care Provider [phone] Allergies No known active allergies Medications Medication Sig Dispensed Refills Start Date End Date Status NAPROXEN SODIUM (ALEVE ORAL) Take by mouth as needed. Active amitriptyline (ELAVIL) 100 mg tablet Take 125 mg by mouth nightly. 03/27/2011 Active eszopiclone (LUNESTA) 3 mg Tab Take 3 mg by mouth. Active tamsulosin (FLOMAX) 0.4 mg Capsule, Sust. Release 24 hr Take 0.4 mg by mouth daily. Active atorvastatin (LIPITOR) 20 mg Tablet Take 20 mg by mouth daily. Active finasteride (PROSCAR) 5 mg Tablet Take 1 tablet by mouth daily. 90 tablet 12 06/07/2015 Active lidocaine (XYLOCAINE) 2 % Gel Apply topically as needed. 30 mL 0 06/08/2015 Active HYDROcodone-acetamin ophen (NORCO) 5-325 mg Tablet Take 1 tablet by mouth every 6 hours as needed for Pain. 30 tablet 0 06/13/2015 Active Active Problems Problem Noted Date Diagnosed Date Urinary retention 06/07/2015 Cognitive change 08/12/2011 Encounters Date Type Department Care Team Description 03/22/2024 Transcribe Orders [facility] Incoming Referrals [phone] Tyrese Lu, Ingrown toenail; Onychogryphosis from Last 3 Months Social History Tobacco Use Types Packs/Day Years Used Date Smoking Tobacco: Former Smokeless Tobacco: Never Alcohol Use Standard Drinks/Week Comments Yes 7 (1 standard drink = 0.6 oz pur e alcohol) Now and again. Sex and Gender Information Value Date Recorded Sex Assigned at Not on file Gender Identity Not on file Sexual Orientation Not on file Last Filed Vital Signs Vital Sign Reading Time Taken Comments Blood Pressure 140/70 06/13/2015 9:52 AM EDT Pulse 86 06/13/2015 9:52 AM EDT Temperature 36.7 ??C (98.1 ??F) 06/07/2015 3:14 PM ED T Respiratory Rate 20 06/07/2015 3:14 PM EDT Oxygen Saturation 100% 06/13/2015 9:52 AM EDT Inhaled Oxygen Concentration - - Weight 72.6 kg (160 lb) 06/13/2015 9:52 AM EDT Height 182.9 cm (6') 06/07/2015 3:14 PM EDT Body Mass Index 21.7 06/07/2015 3:14 PM EDT Plan of Treatment Health Maintenance Due Date Last Done Comments Hepatitis C Screening 1963 Tdap adult 1965 Tetanus vaccine 1965 Zoster vaccine (1 of 2) 1996 Advance Directive 2001 Pneumoccocal Vaccine: 65+ (1 of 1 - PCV) 2011 Covid-19 Vaccine (1 - 2022-24 season) 2023 Influenza (Flu) vaccine (1 o f 1 - Influenza standard series) 05/01/2024 Care Teams Bailing Machine Operator Relationship Specialty Start Date End Date Collin Aburto MD [address] [place] [address] PCP - General 07/23/10
--- OUTSIDE RECORDS SUMMARY | 2024-03-31 04:07 | XMS_ITS | Encounter Summary ---
Author Organization [facility] Address [facility] [place] [address] Care Team Providers Care Sanitation Associate Name Role Phone Collin Aburto MD Primary Care Provider [phone] Reason for Referral * Psychiatric (Routine) - Closed by system - Referral Specialty Diagnoses / Procedures Referred By Tram griffin Referred To Contact Psychiatry Diagnoses Insomnia Procedures cbt for INSOMNIA Jl Velasco MD [facility] [place] [address] [facility] Psychiatry [address] [place] [id number] Referral ID Status Reason Start Date Expiration Date Visits Requested Visits Authorized [id number] Closed by system - Referral Consult, Test & Treat 04/01/2011 09/28/2011 1 1 * Psychiatric (Routine) - Closed by system - Referral Specialty Diagnoses / Procedures Referred By Contrebeca griffin Referred To Contact Psychiatry Diagnoses Depression Procedures med help Jl Velasco MD [facility] [place] [address] Candy Villegas APRN [facility] [address] Referral ID Status Reason Start Date Expiration Date Visits Requested Visits Authorized [id number] Closed by system - Referral Consult, Test & Treat 04/01/2011 09/28/2011 1 1 Reason for Visit * Reason Comments Psychophysiologic Insomnia Encounter Details Date Type Department Care Team (Late st Contact Info) Description 04/01/2011 12:20 PM EDT [place] [address] Jl Velasco MD [facility] [place] [address] Insomnia (Primary Dx); Depression Social History Tobacco Use Types Packs/Day Years [...] Sign Reading Time Taken Comments Blood Pressure 126/82 04/01/2011 12:36 PM EDT Pulse 82 04/01/2011 12:36 PM EDT Temperature - - Respiratory Rate - - Oxygen Saturation - - Inhaled Oxygen Concentration - - Weight 79.8 kg (176 lb) 04/01/2011 12:36 PM EDT Height 184.2 cm (6' 0.5) 04/01/2011 12:36 PM ED T Body Mass Index 23.54 04/01/2011 12:36 PM EDT documented in this encounter Progress Notes * Jl Velasco MD - 04/01/2011 5:06 PM EDT cc: Collin Aburto M.D. History of Present Illness: I have been asked by Alex Aburto M.D., to evaluate Jens Ayala for advice regarding chronic insomnia. My treatment recommendations are included at the conclusion of this note. Jens Ayala is a 65-year-old man who says that he has had difficulty initiating and maintaining sleep all of his life. He even remembers that his parents purchased him earmuffs when he was a child, to help block out sounds so that he could sleep better. For over 20 years, the patient has used sedative hypnotic medications. He currently takes Elavil 250 mg at bedtime. More recently, he has added Lunesta at bedtime as well. With these two sleeping pills, he states that he can initiate and maintain sleep reasonably well. He gets in bed at 10 or 10:30 p.m. He likes to read for one hour. Then when he attempts sleep, he usually falls to sleep within 30 minutes. Through the course of the night, he awakens just once, but falls back to sleep quickly. He gets up to begin his day at about 7 a.m. He rarely takes naps. Often, if he lays down in the afternoon, he is unable to initiate sleep. The patient states that this pattern of sleep is much better than without medications. Unfortunately, he is convinced that he has severe side effects to the amitriptyline. He believes that it contributes to a deteriorating memory, and also dry mouth and constipation. He very much wants to be off amitriptyline. He is currently under evaluation at a memory disorders program in [place], [place]. He is worried about losing his job due to poor memory issues. This, of course, makes him quite anxious about sleep. Sleep Symptoms: Respiratory: No gasping to breathe, snoring, or witnessed apneas. The patient sleeps mostly on his side. Narcolepsy: No hypnagogic hallucinations, sleep paralysis, or cataplexy. Motor: No excessive movement when asleep or dream enactment behavior. The patient states that he does experience restlessness in his legs, along with discomfort. He has been diagnosed with restless leg syndrome and is on medications for it. He does not believe that it is a significant factor in his insomnia presently. Parasomnias: No sleepwalking as an adult or bruxism. The patient does have occasional nightmares, but in general, does not dread sleeping due to nightmarish dreams. 24-Hour Sleep/Wake Schedule. This is described above in the HPI. Daytime Consequences: Patient says that his energy level is normal. He sometimes becomes drowsy in the midafternoon, but does not believe this is unusual. He does not become sleepy when driving, at his job, or at important occasions. Past Medical History: 1. Chronic low back pain (approximately 1979). 2. History of depression and anxiety. He believes that his anxiety has resurfaced in the past few weeks. He has some obsessive tendencies. He sometimes obsesses about his relationship with wine. 3. Right tennis elbow. 4. History of alcohol dependence, not current. 5. Elevated cholesterol. 6. Restless leg syndrome. 7. Plantar fasciitis. Review of Systems: Patient does not report cough or runny nose or shortness of breath. No acid reflux. No significant rhinitis. Current Prescription Medications: 1. Elavil 250 mg at bedtime 2. Lunesta 3. Lipitor 4. OxyContin one or two tablets per week. 5. Ropinirole one to two doses per month. Surgical History: Tennis elbow procedure only. Social History: Patient lives in [place], [place]. 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 He lives with his ex-, Karlee. He does not smoke or use recreational drugs. He drinks approximately two glasses of wine with dinner on average. He drinks two strong cups of coffee in the morning, but no caffeine after 11 a.m. Physical Exam: Vitals: See vitals section of the chart. Heart regular rate and rhythm without murmur. Lungs clear without rales, rhonchi, or wheezes. Oropharynx not crowded, MD grade 2. Neck supple. Neck circumference 15.5 inches. Extremities without edema. Assessment/Plan: Psychophysiological insomnia. The patient has chronic psychophysiological insomnia, ever since childhood. He says that he is extremely sensitive to light and noise, and his sleep is disturbed easily. On his current medications, Lunesta and high dose amitriptyline, he actually initiates and maintains sleep well through the night. Unfortunately, he perceives that he is having intolerable side effects to the amitriptyline. Because the patient does not complain of hypersomnolence, parasomnias, or sleep disordered breathing symptoms, I do not believe that testing in the Sleep Lab is warranted. I explained to the patient that the best chance of successfully weaning off amitriptyline would be as follows: 1. Receive formal cognitive behavioral therapy for insomnia. This has been shown to increase the success rate of weaning off sedative medications. 2. I would like to have a psychiatrist monitoring the situation because he does report some anxiety, and I am also worried that depression could worsen if he is tapered from amitriptyline which is at a high dose, and probably exerts an antidepressant effect. 3. I believe that the amitriptyline should be tapered approximately 50 mg every five days until it is eliminated. The patient is concerned that if he tapers the amitriptyline, his insomnia will be severe, and he will be nonfunctional. We decided that we would not begin any process of tapering until he is in a cognitive behavioral therapy for insomnia program, and is connected with a psychiatrist-I will arrange for referrals for these two specialists. This visit was 60 minutes in duration. I will forward a copy of this consult note to the referring physician, Alex Aburto M.D. Patient will follow up with me to begin his taper from amitriptyline once he has established care with a psychologist for cognitive behavioral therapy for insomnia, and a psychiatrist, to monitor his depression treatment. documented in this encounter Plan of Treatment Scheduled Referrals Name Type Priority Associated Diagnoses Orde r Schedule PSYCHIATRY Outpatient Referral Routine Depression Ordered: 04/01/2011 PSYCHIATRY Outpatient Referral Routine Insomnia Ordered: 04/01/2011 documented as of this encounter Visit Diagnoses Diagnosis Insomnia- Primary Insomnia, unspecified Depression Depressive disorder, not elsewhere classified documented in this encounter Care Teams Sanitation Associate Relationship Specialty Start Date End Date Collin Aburto MD [address] [place] [address] PCP - General 07/23/10 documented as of this encounter
--- OUTSIDE RECORDS SUMMARY | 2024-03-31 04:07 | XMS_ITS | Encounter Summary ---
Author Organization [facility] Address [facility] [place] [address] Care Team Providers Care Administrative Program Specialist Name Role Phone Collin Aburto MD Primary Care Provider [phone] Reason for Visit * Reason Comments Insomnia Encounter Details Date Type Department Care Team (Late st Contact Info) Description 06/24/2011 9:30 AM EDT Office Visit Psychiatry [place] [address] Yuliya Burr, PhD [facility] [place] [address] Persistent disorder of initiating or maintaining sleep [...] Progress Notes * Yuliya Burr, PhD - 06/24/2011 10:57 AM EDT Behavioral Medicine Service Individual Therapy Followup/Cognitive Behavioral Therapy-- 50 minutes Chief Complaint:sleep S/O: Jens Ayala forgot his sleep diaries in the car. He reports that overall his sleep is bettersince he moved his bedtime to midnight and gets up at 7am. He has tapered his amitriptyline from 250 mg to 150 mg but is able to fall asleep in about 30 minutes. Mr. Ayala reports getting 6-7 hours of sleep at night and feels that he can function well at work. He has more difficulty focusing on days he does not work. Mr. Ayala states that there is a clock in the bedroom but that he does not watch it during the night. He has read the Hauri book but states he has not made any additional changesin behavior based on what he read. The session focused on identifying areas for intervention. Worry reduction at night was a main factor in wakefulness. Mr. Ayala brought up that he would like to resume attending a meditation time [facility]. A: 307.42 P: Jens Ayala will bring in all his sleep diaries at the next meeting. He will maintain his 7am wake time and not go to bed until tired. He has cognitive testing scheduled for the 2nd and 3rd weekin July. Next session will focus on setting up a worry time and reviewing cognitive strategies.Mr. Ayala brings up concerns about having a seasonal affect disorder and light treatment was briefly discussed. RTC 2 weeks for followup. He may need to schedule in late July depending on work schedule. documented in this encounter Plan of Treatment Not on file documented as of this encounter Visit Diagnoses Diagnosis Persistent disorder of initiating or maintaining sleep- Primary documented in this encounter Care Teams Administrative Program Specialist Relationship Specialty Start Date End Date Collin Aburto MD [address] [place] [address] PCP - General 07/23/10 documented as of this encounter
--- OUTSIDE RECORDS SUMMARY | 2024-03-31 04:07 | XMS_ITS | Encounter Summary ---
Author Organization [facility] [place] [address] Care Team Providers Care Engine Service Repairer Name Role Phone Collin Aburto MD Primary Care Provider [phone] Encounter Details Date Type Department Care Team (Late st Contact Info) Description 06/08/2015 [place] [phone] Mark Anthony Madrigal MD [facility] [place] [address] Social History Tobacco Use Types Packs/Day Years [...] encounter Miscellaneous Notes * Telephone Encounter - Mark Anthony Madrigal - 06/08/2015 8:29 PM EDT Mr. Ayala called to report he was having burning sensation at tip of his penis and some bloody drainage from around his catheter. Had a paulson placed for urinary retention and will remain in place until next week when he will see Dr. Garza again in the clinic for catheter removal and to learn CIC. I explained that the paulson can cause irritation and small bleeding from the urethra if it is being pulled on or just from being in. Denies fevers/chills, paulson is draining well and notes no blood in his urine. I will prescribe him lidocaine jelly to apply to the tip of his penis for the discomfort he is having. The plan was explained in detail to the caller, who agreed. All questions were answered to the caller's satisfaction. documented in this encounter Plan of Treatment Not on file documented as of this encounter Visit Diagnoses Not on filedocumented in this encounter Care Teams Engine Service Repairer Relationship Specialty Start Date End Date Collin Aburto MD [address] [place] [address] PCP - General 07/23/10 documented as of this encounter
--- OUTSIDE RECORDS SUMMARY | 2024-03-31 04:07 | XMS_ITS | Encounter Summary ---
Author Organization [facility] [place] [address] Care Team Providers Care Superintendent Electric Power Name Role Phone Collin Aburto MD Primary Care Provider [phone] Encounter Details Date Type Department Care Team (Late st Contact Info) Description 06/24/2015 [place] [phone] Jacqueline Bonner MD [facility] [place] [address] Social History Tobacco Use Types Packs/Day Years [...] encounter Miscellaneous Notes * Telephone Encounter - Jacqueline Bonner MD - 06/24/2015 8:52 PM EDT TELEPHONE NOTE Date of call: 06/24/2015 Time of call: 9 PM Caller: Jens Ayala Jens Smyth Lucy calls again because he self-cathed 4 times yesterday and today about 150-200 cc each time, but he feels like today after he self-cathed he has more urine in his bladder than is drainingand he is having bladder spasms. He started on the Cipro yesterday, but had a subjective feeling this afternoon. I offered for him to be seen in clinic tomorrow, but he is unsure if he will be able to make it. Hewill call tomorrow if he does not feel better. Jacqueline Bonner MD Urology PGY-2 Pager: [phone] documented in this encounter Plan of Treatment Not on file documented as of this encounter Visit Diagnoses Not on filedocumented in this encounter Care Teams Superintendent Electric Power Relationship Specialty Start Date End Date Collin Aburto MD [address] [place] [address] PCP - General 07/23/10 documented as of this encounter
--- OUTSIDE RECORDS SUMMARY | 2024-03-31 04:07 | XMS_ITS | Encounter Summary ---
[place] [address] Care Team Providers Care Junior Net Developer Name Role Phone Collin Aburto MD Primary Care Provider [phone] Reason for Referral * Consultation (Routine) - Closed Specialty Diagnoses / Procedures Referred By Tram t Referred To Contact Sleep Center Diagnoses Memory impairment José Miguel Espinoza MD [facility] [place] [address] Pa Shine MD [facility] [place] [address] Referral ID Status Reason Start Date Expiration Date V isits Requested Visits Authorized [id number] Closed Consult, Test & Treat 02/14/2011 08/13/2011 1 1 * Psychiatric (Routine) - Patient Refused - Seen Elsewhere Sooner Specialty Diagnoses / Procedures Referred By Contac t Referred To Contact Psychology / Psychiatry Diagnoses Memory impairment Procedures dosier operator testing José Miguel Espinoza MD [facility] [place] [address] [facility] [address] [place] [address] Referral ID Status Reason Start Date Expiration Date Visits Requested Visits Authorized [id number] Patient Refused - Seen Elsewhere Sooner Consult, Test & Treat 02/14/2011 08/13/2011 1 1 Reason for Visit * Reason Comments Dementia Encounter Details Date Type Department Care Team (Late st Contact Info) Description 02/14/2011 8:45 AM EDT [place] [address] Stevie Altman MD [facility] [place] [address] Memory impairment (Primary Dx) Discharge Disposition: Home Social History Tobacco Use Types Packs/Day Years Used Date Smoking Tobacco: Former Alcohol Use Standard Drinks/Week Comments Yes 0 (1 standard drink = 0.6 oz pur e alcohol) Now and again. Sex and Gender Information Value Date Recorded Sex Assigned at Not on file Gender Identity Not on file Sexual Orientation Not on file documented as of this encounter Last Filed Vital Signs Vital Sign Reading Time Taken Comments Blood Pressure 122/78 02/14/2011 9:02 AM EDT Pulse 74 02/14/2011 9:02 AM EDT Temperature - - Respiratory Rate 14 02/14/2011 9:02 AM EDT Oxygen Saturation - - Inhaled Oxygen Concentration - - Weight 81.6 kg (180 lb) 02/14/2011 9:02 AM EDT Height 182.9 cm (6') 02/14/2011 9:02 AM EDT Body Mass Index 24.41 02/14/2011 9:02 AM EDT documented in this encounter Progress Notes * Stevie Altman MD - 02/16/2011 7:13 PM EDT ... I saw and evaluated the patient with Dr. Espinoza. I have reviewed theresident's history during thevisit and I agree with the details as written. My neurological examination confirms the resident's findings. The assessment and plan were formulated in discussion with me at the time of the visit Nancie agree with them as documented. Discussed at length with patient about diagnostic considerations. Explained diagnosis and treatment. I went over medications, indications and side-effects. Patient understands and accepts our plan. If there are any questions or problems, they will call me immediately. * José Miguel Espinoza - 02/14/2011 9:09 AM EDT Subjective: Patient ID: Jens Ayala is a 65 y.o. male. HPI Mr. Ayala is a pleasant 65 year old gentleman w/ PMH notable for hyperlipidemia, depression, and anxiety who presents to Neurology clinic in referral by his PCP (Dr. Aburto) due to concerns of memory loss. The patient is accompanied by his significant other who provides additional information at [facility] during the interview. The patient reports feeling as though he has always had a wandering attention and active imagination over the course of his life. However, for the past 2 years he notes a progressive loss of short term memory and worsening attention. He is aware of misplacing things atwork (i.e. files, and coffee mugs), forgetting names of people he has known for some time, losing his car in parking lots ~50% of the time, occasionally getting lost while driving, but then able to correct his mistake. The patient also notes that his supervisor laundry at work and have commented to him about forgetting to or failing to complete activities he has been asked to do. The patient has notleft the stove on, or sink running at home, or other dangerous forgetfulness, but notes that over the winter he did not latch the word burning stove completely, and that could have led to serious damage. The patient denies significant stress in his life. He reports he feels secure at work, and does nothave stress at home. He does worry about his memory, and in terms of his health expresses fears of impotence and worries of his self image. He has not had recent medication changes, but notes that hehas had difficulties with insomnia his entire life. He currently takes Amitriptyline 250 mg PO QHS a nd Lunesta 3 mg PO QHS. Review of Systems Constitutional - 10 lb weight gain over past year; Denies: recent illness, fevers, chills, fatigue Cardiovascular - rare palpitations; Denies: chest pain, dyspnea Respiratory - Denies: wheeze HEENT - Denies: diffculty swallowing Endocrine - polyuria; Denies: polydipsia Eyes - Denies: visual changes Psychiatric - worries per HPI, reports mood as pretty good Neurological - Denies: headaches, numbness, tingling Gastrointestinal - constipation; Denies: GERD, abdominal pain, nausea, vomiting, diarrhea, blood instool Genitourinary - Denies: dysuria, hematuria Heme/Lymph - Denies: bruising, bleeding, lymph node swelling Musculoskeletal - back pain, both elbows Allergic/Immunologic - Denies: rash Past Medical History: # Hyperlipidemia # Chronic low back pain # Depression # Anxiety # Insomnia # Restless leg syndrome # Erectile dysfunction Past Surgical History: # s/p right elbow surgery Social History: [place], [place] Lives w/ other 2 adult sons 1 granddaughter 3 years old 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 Enjoys: gardening, fishing, hunting, [place] Tobacco: Denies EtOH: Denies current, but occasional (2 glasses of wine w/ dinner) in past but feels this may have been excessive Illicits: distant marijuana use, past overuse of narcotics; Denies: methamphetamines, cocaine, heroin Family History: Father: alcoholism Mother: muscular dystrophy, breast cancer, dementia Sister: breast cancer ( 1982) Sister: breast cancer, DMII, MS Sister: healthy Objective: Filed Vitals: 02/14/11 0902 BP: 122/78 Pulse: 74 Resp: 14 Physical Exam GENERAL: 65 year old male, no acute distress, pleasant affect HEENT: PERRL, anicteric sclerae, nares clear, MMM, no cervical or supraclavicular lymphadenopathy CARDIO: normal S1 and S2, RRR, no murmur, no gallop, no rub, bilateral radial pulses equal and symmetric PULMONARY: clear to auscultation bilat, no wheezes, no crackles ABDOMEN: soft, NABS, nondistended, nontender EXTREMITIES: no edema SKIN: warm, dry, no visible rashes Neurologic Exam General: AAOx3, NAD, pleasant affect, normal bulk and tone, no pronator drift Strength: Bilat biceps 5/5; Bilat triceps 5/5; Bilat handgrip 5/5; Bilat quadricep 5/5; Bilat hamstring 5/5; Bilat dorsiflexion 5/5, Bilat plantarflexion 5/5 Reflexes: RT 2+ RB 2+ RP 2+ NIRANJAN 2+ LT 2+ LB 2+ LP 2+ LAJ 2+ neighborhood aide: I: not tested II: visual arellano intact III, IV, : EOMI, PERRL V: intact sensation to light touch over V1, V2, V3 VII: no facial droop, symmetric smile, eyes close w/out difficulty VIII: intact to finger rub bilat IX, X, XI: palate raises symmetrically, uvula midline XII: tongue protrudes midline, able to move side to side easily Gait: normal [place] Cognitive Assessment (MOCA): scored 27/30 (points deducted for recall of words after 5 minutes) Assessment and Plan: Mr. Ayala is a pleasant 65 year old gentleman w/ PMH notable for hyperlipidemia, depression, and anxiety who presents to Neurology clinic in referral by his PCP (Dr. Aburto) due to concerns of memory loss. Although the patient's history, which is supported by his , may be concerning for mild co gnitive impairment he scored well on the MOCA performed in the office today. Although the patient denies low mood there may be a component of depression, anxiety, and/or stress contributing to the patient's forgetfulness. At this time in order to sort out his symptoms a bit more formal neuropsychiatric testing should be pursued. Moreover, given his lifelong difficulties with sleeping he should beevaluated in the [facility] sleep clinic in order to treat / optimize his difficulty sleeping. He is currently taking a great deal of Amitriptyline nightly as well as nightly Lunesta, and it is unclear if these medications may be playing a role in his difficulties with memory. Given the fact they have been regular medications for a long time this may be unlikely. Summary of recommendations: - refer for neuropsychatric testing (referral submitted) - refer to sleep medicine for evaluation of chronic insomnia (referral submitted) - follow up in neurology clinic once the above have been completed documented in this encounter Plan of Treatment Scheduled Referrals Name Type Priority Associated Diagnoses Order Schedule REFERRAL TO NEUROPSYCHOLOGY Outpatient Referral Routine Memory impairment Ordered: 02/14/2011 REFERRAL TO [facility] Outpatient Referral Routine Memory impairment Ordered: 02/14/2011 documented as of this encounter Visit Diagnoses Diagnosis Memory impairment- Primary Memory loss documented in this encounter Care Teams Junior Net Developer Relationship Specialty Start Date End Date Collin Aburto MD [address] [place] [address] PCP - General 07/23/10 documented as of this encounter
--- OUTSIDE RECORDS SUMMARY | 2024-03-31 04:07 | XMS_ITS | Encounter Summary ---
Author Organization [facility] Address [facility] [place] [address] Care Team Providers Care Auto Hauler Name Role Phone Collin Aburto MD Primary Care Provider [phone] Reason for Visit * Reason Onset Date Comments Other 02/04/2011 Appointment Encounter Details Date Type Department Care Team (Late st Contact Info) Description 02/04/2011 Telephone [place] [address] José Miguel Espinoza MD [facility] [place] [address] Other (Appointment) Social History Tobacco Use Types Packs/Day Years Used Date Smoking Tobacco: Never Assessed Sex and Gender Information Value Date Recorded Sex Assigned at Not on file Gender Identity Not on file Sexual Orientation Not on file documented as of this encounter Miscellaneous Notes * Telephone Encounter - Edwina Salguero - 02/04/2011 12:10 PM EDT Please schedule patient for an NWS with Dr. Espinoza on Saturday 02/10 @ either 9am or 10:30am documented in this encounter Plan of Treatment Not on file documented as of this encounter Visit Diagnoses Not on filedocumented in this encounter Care Teams Auto Hauler Relationship Specialty Start Date End Date Collin Aburto MD [address] [place] [address] PCP - General 07/23/10 documented as of this encounter
--- OUTSIDE RECORDS SUMMARY | 2024-03-31 04:07 | XMS_ITS | Encounter Summary ---
Author Organization [facility] [place] [address] Care Team Providers Care Legal Internship Name Role Phone Collin Aburto MD Primary Care Provider [phone] Encounter Details Date Type Department Care Team (Late st Contact Info) Description 06/23/2015 [place] [phone] Jacqueline Bonner MD [facility] [place] [address] Social History Tobacco Use Types Packs/Day Years [...] Telephone Encounter - Jacqueline Bonner MD - 06/23/2015 9:54 AM EDT TELEPHONE NOTE Date of call: 06/23/2015 Time of call: [phone] Caller: Jens Ayala calls because he is still having some dysuria and fever-hever after finishing his 7 days course of Cipro that was prescribed at the [facility] ED on 2015. He is going on a trip to [place] soon and is worried about having another UTI. He denies nausea, vomiting, hematuria or flank pain, He is going to drop off a urine sample for urine culture at [facility]. In the meantime,I have [id number] days of Cipro 500 mg BID. He understands the plan and all questions were answered to his satisfaction. Jacqueline Bonner MD Urology PGY-2 Pager: [phone] documented in this encounter Plan of Treatment Not on file documented as of this encounter Visit Diagnoses Not on filedocumented in this encounter Care Teams Legal Internship Relationship Specialty Start Date End Date Collin Aburto MD [address] [place] [address] PCP - General 07/23/10 documented as of this encounter
--- OUTSIDE RECORDS SUMMARY | 2024-03-31 04:07 | XMS_ITS | Encounter Summary ---
Author Organization [facility] Address [facility] [place] [address] Care Team Providers Care Furniture Technician Name Role Phone Collin Aburto MD Primary Care Provider [phone] Reason for Visit * Reason Onset Date Comments Follow-up 04/10/2011 Encounter Details Date Type Department Care Team (Late st Contact Info) Description 04/10/2011 Telephone [place] [address] Jl Velasco MD [facility] [address] Follow-up Social History Tobacco Use Types Packs/Day [...] * Telephone Encounter - Cami Frias - 04/18/2011 11:09 AM EDT done documented in this encounter Plan of Treatment Not on file documented as of this encounter Visit Diagnoses Not on filedocumented in this encounter Care Teams Furniture Technician Relationship Specialty Start Date End Date Collin Aburto MD [address] [place] [address] PCP - General 07/23/10 documented as of this encounter
--- OUTSIDE RECORDS SUMMARY | 2024-03-31 04:07 | XMS_ITS | Encounter Summary ---
Author Organization [facility] [place] [address] Care Team Providers Care Scoreboard Operator Name Role Phone Collin Aburto MD Primary Care Provider [phone] Encounter Details Date Type Department Care Team (Late st Contact Info) Description 02/13/2011 [place] [address] Diana Moreno MD [facility] [place] [address] Social History Tobacco Use Types Packs/Day Years Used Date Smoking Tobacco: Never Assessed Sex and Gender Information Value Date Recorded Sex Assigned at Not on file Gender Identity Not on file Sexual Orientation Not on file documented as of this encounter Plan of Treatment Not on file documented as of this encounter Procedures Procedure Name Priority Date/Time Associated Diagnosis Comments FILM LIBRARY STORAGE ONLY MR HEAD Routine 02/13/2011 2:05 PM EDT documented in this encounter Results * FILM LIBRARY- STORAGE ONLY MR HEAD (02/13/2011 2:05 PM EDT) 02/13/2011 2:05 PM EDT Narrative [facility] - 01/03/2014 7:48 PM EDT This is a non-reportable exam. Procedure Note Miguel Jenkins - 01/03/2014 This is a non-reportable exam. Diana Moreno MD [facility] FILM LIBRARY ORD ERABLES RAD [address] [place] [address] documented in this encounter Visit Diagnoses Not on filedocumented in this encounter Care Teams Scoreboard Operator Relationship Specialty Start Date End Date Collin Aburto MD [address] [place] [address] PCP - General 07/23/10 documented as of this encounter
--- OUTSIDE RECORDS SUMMARY | 2024-03-31 04:07 | XMS_ITS | Encounter Summary ---
Author Organization [facility] Address [facility] [place] [address] Care Team Providers Care Pipe Coverer Name Role Phone Collin Aburto MD Primary Care Provider [phone] Reason for Visit * Reason Comments Cognitive Problems Encounter Details Date Type Department Care Team (Late st Contact Info) Description 03/26/2011 12:40 PM EDT [place] [address] Diana Weir MD [facility] [place] [address] Memory loss (Primary Dx) Discharge Disposition: Home Social History [...] Sign Reading Time Taken Comments Blood Pressure 118/82 03/26/2011 12:55 PM EDT Pulse 81 03/26/2011 12:55 PM EDT Temperature - - Respiratory Rate - - Oxygen Saturation - - Inhaled Oxygen Concentration - - Weight 79.4 kg (175 lb) 03/26/2011 12:55 PM EDT Height 185.4 cm (6' 1) 03/26/2011 12:55 PM EDT Body Mass Index 23.09 03/26/2011 12:55 PM EDT documented in this encounter Progress Notes * Sukhdeep Oneal MD - 03/28/2011 9:09 AM EDTAddended by: SUKHDEEP ONEAL on: 03/28/2011 Modules accepted: Orders * Diana Weir MD - 03/26/2011 10:50 PM EDTAddended by: DIANA WEIR on: 03/26/2011 Modules accepted: Level of Service * Sukhdeep Oneal MD - 03/26/2011 2:16 PM EDT CC: memory loss HPI: 65 y/o gentleman with a remote history of depression, hypothyroidism and hyperlipidemia presents for subjective impairment. Patient was recently seen about [address] Altman for same. Referrals were made for neuropsych and sleep medicine testing but have not been done at this time. There was confusion as to the reason for this visit, but it was made in anticipation of those results being available. Patient states that his memory is worsening, forgetting where he leaves his tools, forgetting his friend's last name. Also states that sometimes he passes [place] on the free[place]. He isanxious to have his neuropsych testing. Past Medical History Hypothyroidism Remote history of depression Hyperlipidemia Meds: Lipitor Synthroid Amitryptyline Exam: Filed Vitals: 03/26/11 1255 BP: 118/82 Pulse: 81 Gen: no acute distress MMSE: able to recall 3 objects in 5 minutes, alert and oriented to time, place and purpose CN: no facial asymmetry, tongue protrudes midline. Motor: 5/5 throughout Reflexes: 2/4 throughout Sensory: intact to light touch and temperature throughout Cerebellar: finger to nose and rapid alternating movement normal Gait: stable Labs: no recent labs A/P 65 y/o male complaining of recent worsening memory loss and insomnia here for followup test resultsfor tests that have not been performed. Dr. Weir spent >30 minutes coordinating his appointments for testing with multiple centers, including [facility] and a hospital in [place]. Patient needs to haveneuropsych testing before Neurology has anything further to add. His MOCA was 27/30 on last evaluation and his rough MMSE today was normal. He is understandably upset and will followup as closely as possible. Sukhdeep Oneal, Resident in Neurology I have seen the patient and reviewed the resident's above history and I agree with the details as written. The assessment and plan were formulated in discussion with me and I agree with them as documented. Pertinent History: The patient has a history of memory loss that could be related to his underlyinganxiety or a neurodegenerative disorder, when he was seen last several diagnostic tests were ordered including a sleep consult and neuropsychological testing. None of those tests have been achieved so far. The patient's symptoms are basically unchanged. Pertinent Exam: Notably upset that none of the tests were scheduled. Major issues addressed: Explained above to him and apologized that done of the tests were scheduled. I called neuropsychology, who explained to me that some insurance issues need to be clarified before the patient can be scheduled. He has an appointment with the sleep lab in early March. He also seems to have an appointment with the memory clinic at [facility]. Even after calling his and his primary care physician it was not clear whether this is neuropsychological testing or a consult for his memory loss. Plan: Called the patient and his several times today to clarify the appointments, however, I was unable to reach the memory clinic at [facility]. Will try to coordinate the appointments overthe next few days and then followup with the patient about the results of those tests. 03/26/11 Clarified patient appointment he will have neuropsych at [facility] on 04/28 and follow up with Dr Altman scheduled 05/29. documented in this encounter Plan of Treatment Not on file documented as of this encounter Visit Diagnoses Diagnosis Memory loss- Primary documented in this encounter Care Teams Pipe Coverer Relationship Specialty Start Date End Date Collin Aburto MD [address] [place] [address] PCP - General 07/23/10 documented as of this encounter
--- OUTSIDE RECORDS SUMMARY | 2024-03-31 04:07 | XMS_ITS | Encounter Summary ---
Author Organization Counts Include [facility] Address [facility] [place] [address] Care Team Providers Care Stepdown Nurse Name Role Phone Collin Aburto MD Primary Care Provider [phone] Reason for Visit * Reason Comments Urinary Retention Encounter Details Date Type Department Care Team (Late st Contact Info) Description 06/07/2015 3:40 PM EDT [place] [address] Chester Garza III, MD [facility] [place] [address] Urinary retention due to benign prostatic hyperplasia Social History Tobacco Use Types Packs/Day Years [...] Sign Reading Time Taken Comments Blood Pressure 143/77 06/07/2015 3:14 PM EDT Pulse 81 06/07/2015 3:14 PM EDT Temperature 36.7 ??C (98.1 ??F) 06/07/2015 3:14 PM ED T Respiratory Rate 20 06/07/2015 3:14 PM EDT Oxygen Saturation 100% 06/07/2015 3:14 PM EDT Inhaled Oxygen Concentration - - Weight 72.6 kg (160 lb) 06/07/2015 3:14 PM EDT Height 182.9 cm (6') 06/07/2015 3:14 PM EDT Body Mass Index 21.7 06/07/2015 3:14 PM EDT documented in this encounter Progress Notes * Chester Garza III, MD - 06/07/2015 4:03 PM EDT Mr. Ayala is a 69-year-old gentleman I am seeing as a new patient for evaluation of urinary retention. This gentleman originally from [place] was traveling on [facility] a few days ago when he began experiencing frequent urination in small quantities. He felt he was not emptying his bladder and became uncomfortable. He reported to the [facility], where a noncontrast CT scan was performed. This showed no upper tract pathology, except for some renal cysts, distended bladder, and a markedly enlarged prostate. A 14 Estonian Mathew catheter was inserted and placed to drainage. The patient states that he was drained of 1.5 L of urine. He notes that he has been on tamsulosin for approximately three years for lower urinary tract symptoms. This was prescribed by his primary care physician. He says that it did not make any significant change in his voiding symptoms. He has felt for quite a while that he has not been fully emptying his bladder. He has had no incontinence, hematuria or signs of urinary tract infection. I have reviewed his past medical history. I have reviewed his medications and allergies. His review of systems is essentially noncontributory for this problem. He has no history of shortness of breath or chest pain. He has no history of abdominal pain or lower extremity edema. Physical Examination: In general, he is a well-developed, well-nourished, healthy-appearing gentleman in no acute distress. Examination of genitalia: There is a 14 Estonian Mathew catheter at the urethral meatus draining clear yellow urine. Examination of his prostate reveals a markedly enlarged prostate. The anterior aspect of the prostate is identified, but the size prohibits complete inspection. There are no obvious nodules. Assessment: This 69-year-old gentleman presents for evaluation of acute urinary retention. My sense is that he has had longstanding history of bladder outlet obstruction with chronic changes. We have discussed options for management. I have recommended that we leave his bladder decompressed for approximately a week and then teach him to perform intermittent catheterization. We began to discuss surgical management, but I have emphasized that it is too early to tell what type of bladder function he will expect. He may be a candidate for urodynamics at some point. Plan: We will see this gentleman back in approximately five to six days for cath removal, voiding trial and CIC teaching. I started him on finasteride 5 mg p.o. q.d. to be taken in conjunction with the Flomax. All questions have been answered. documented in this encounter Plan of Treatment Not on file documented as of this encounter Visit Diagnoses Diagnosis Urinary retention due to benign prostatic hyperplasia documented in this encounter Care Teams Stepdown Nurse Relationship Specialty Start Date End Date Collin Aburto MD [address] [place] [address] PCP - General 07/23/10 documented as of this encounter
--- OUTSIDE RECORDS SUMMARY | 2024-03-31 04:07 | XMS_ITS | Encounter Summary ---
Author Organization [facility] Address [facility] [place] [address] Care Team Providers Care Assessment Manager Name Role Phone Collin Aburto MD Primary Care Provider [phone] Encounter Details Date Type Department Care Team (Latest Contact Info) Description 09/02/2011 12:16 PM EST - 09/02/2011 11:59 PM [facility] Hospital [place] [address] CLINIC, Stevie Currie MD [facility] [place] [address] Cognitive impairment Discharge Disposition: Home Social History Tobacco Use [...] on file documented as of this encounter Medications at Time of Discharge Medication Sig Dispensed Refills Start Date End Date amitriptyline (ELAVIL) 100 mg tablet Take 125 mg by mouth nightly. 03/27/2011 eszopiclone (LUNESTA) 3 mg Tab Take 3 mg by mouth. NAPROXEN SODIUM (ALEVE ORAL) Take by mouth as needed. methylphenidate (RITALIN) 5 mg tablet Take 5 mg by mouth as needed. 06/07/2015 simvastatin (ZOCOR) 20 mg tablet Take 1 tablet by mouth nightly. 04/02/2011 06/07/2015 SENNOSIDES (LAXATIVE PILLS ORAL) Take by mouth. 06/07/2015 OXYCODONE HCL (OXYCONTIN ORAL) Take 1 tablet by mouth as needed. 02/14/2011 06/07/2015 documented as of this encounter Plan of Treatment Not on file documented as of this encounter Procedures Procedure Name Priority Date/Time Associated Diagnosis Comments NM PET CT METABOLIC BRAIN Routine 09/02/2011 1:45 PM EST Cognitive impairment POCT GLUCOSE Routine 09/02/2011 12:39 PM EST documented in this encounter Results * PET-CT brain pet [...] you for referring this patient to the [facility] PET Center. Film and interpretation reviewed by the attending Narrative 09/02/2011 4:50 PM EST PET/CT SCAN OF THE BRAIN DATE OF EXAM: ??September 02, 2011. ?? PROCEDURE: Following IV injection of 99-pwfyzj-6-deoxyglucose (FDG) and a standard uptake period, a [...] 02, 2011. PROCEDURE: Following IV injection of 54-abfvwx-6-deoxyglucose (FDG) and a standard uptake period, a [...] you for referring this patient to the [facility] PET Center. Film and interpretation reviewed by the attending Stevie Altman MD IM PET ORDERABLES * POCT GLUCOSE LAB USE ONLY (09/02/2011 12:39 PM EST) POC Glucose 74 60 - 199 mg/dL [facility] Comment: Supplemental ranges: <110 mg/dL before meals <200 mg/dL all other times of the day Blood specimen (specimen) 09/02/2011 12:39 PM EST 09/02/2011 12:39 PM EST Stevie Altman MD POINT OF CARE TEST O RDERABLES [facility] documented in this encounter Visit Diagnoses Diagnosis Cognitive impairment Unspecified persistent mental disorders due to conditions classified elsewhere documented in this encounter Care Teams Assessment Manager Relationship Specialty Start Date End Date Collin Aburto MD [address] [place] [address] PCP - General 07/23/10 documented as of this encounter
--- OUTSIDE RECORDS SUMMARY | 2024-03-31 04:07 | XMS_ITS | Encounter Summary ---
[place] [address] Care Team Providers Care Lithoplate Maker Name Role Phone Collin Aburto MD Primary Care Provider [phone] Reason for Referral * Consultation (Routine) - Authorized Specialty Diagnoses / Procedures Referred By Tram griffin Referred To Contact Podiatry Diagnoses Ingrown toenail Onychogryphosis Tyrese Lu DO [address] [place] [address] [facility] [place] [address] Referral ID Status Reason Start Date Expiration Date Visits Requested Visits Authorized [id number] Authorized Consult, Test & Treat PCP Updated and/or Approved 03/22/2024 03/22/2025 6 6 Encounter Details Date Type Department Care Team (Late st Contact Info) Description 03/22/2024 Transcribe Orders eDH Incoming Referrals [phone] Tyrese Lu DO [address], [place] [id number] Ingrown toenail; Onychogryphosis Social History Tobacco Use Types Packs/Day Years [...] as of this encounter Plan of Treatment Scheduled Referrals Name Type Priority Associated Diagnoses Orde r Schedule Referral to Podiatry Outpatient Referral Routine Ingrown toenail Onychogryphosis Ordered: 03/22/2024 documented as of this encounter Visit Diagnoses Diagnosis Ingrown toenail Ingrowing nail Onychogryphosis Other specified disease of nail documented in this encounter Care Teams Lithoplate Maker Relationship Specialty Start Date End Date Collin Aburto MD [address] [place] [address] PCP - General 07/23/10 documented as of this encounter
--- OUTSIDE RECORDS SUMMARY | 2024-03-31 04:07 | XMS_ITS | Encounter Summary ---
Author Organization [facility] [place] [address] Care Team Providers Care Chain Testing Machine Operator Name Role Phone Collin Aburto MD Primary Care Provider [phone] Encounter Details Date Type Department Care Team (Late st Contact Info) Description 2015 [place] [id number] Mark Anthony Madrigal MD [facility] [place] [address] Social History Tobacco Use Types Packs/Day Years [...] Telephone Encounter - Mark Anthony Madrigal - 2015 10:37 PM EDT Mr. Ayala called to report he was having bloody UOP in paulson catheter described as consistent withfruit punch. No blood clots. Concerned enough to want to be evaluated. I told him to proceed to local ED. He called back after coming home from [facility] ED, had urine culture sent and sent home with scripts for Cipro and Pyridium. I explained that he may have a UTI. We will be sure to follow up that culture and be in touch if heneeds to change the antibiotics. He is scheduled to return to clinic for catheter removal and to learn CIC. I told him that increasingly blood UOP, blood clots, or no UOP from [place] and feeling like bladder was getting full would be reasons to return to ED. If he requires immediate medical attention, he will go to the local ED. The plan was explained in detail to the caller, who agreed. All questions were answered to the caller's satisfaction. documented in this encounter Plan of Treatment Not on file documented as of this encounter Visit Diagnoses Not on filedocumented in this encounter Care Teams Chain Testing Machine Operator Relationship Specialty Start Date End Date Collin Aburto MD [address] [place] [address] PCP - General 07/23/10 documented as of this encounter
--- OUTSIDE RECORDS SUMMARY | 2024-03-31 04:08 | XMS_ITS | Encounter Summary ---
Author Organization [facility] Address [address] [place] [address] Care Team Providers Care Economic Forecaster Name Role Phone Collin Aburto MD Primary Care Provider [phone] Reason for Visit * Reason Onset Date Comments Other 01/28/2024 Encounter Details Date Type Department Care Team (Late st Contact Info) Description 01/28/2024 Telephone [facility] Medicine [address] [place] [address] [facility] [address] [facility] [address] [place] [address] Other Social History Tobacco Use Types Packs/Day Years Used Date Smoking Tobacco: Former Smokeless Tobacco: Never Comments:College Alcohol Use Standard Drinks/Week Comments Yes 7 (1 standard drink = 0.6 oz pure alcohol) May not drink for 2 months at a time Interpersonal Safety Answer Date Record ed Physically Hurt Never 04/01/2020 Verbally Threaten Not on file 04/01/2020 Sex and Gender Information Value Date Recorded Sex Assigned at Not on file Gender Identity Not on file Sexual Orientation Not on file documented as of this encounter Miscellaneous Notes * Telephone Encounter - Fifi Freeman, TRENT - 02/05/2024 1432 EDT Patient in for visit today. Asked that he provide information for nPario. Per Jens, the company isgoing to call the office. * Telephone Encounter - Charissa Velásquez - 01/28/2024 1208 EDT Jens called to say that he has used some over the counter nail fungal stuff and liked the way the tube was designed with a brush. He has not however found the same type container and called the company himself. The company said with a phone call to them from Dr. Nix can put him in network and Jens can get the right product. Please call Jens with the phone number to the company. Thanks Charissa documented in this encounter Plan of Treatment Not on file documented as of this encounter Visit Diagnoses Not on filedocumented in this encounter Care Teams Economic Forecaster Relationship Specialty Start Date End Date Collin Aburto MD [address] [place] [address] PCP - General 01/28/11 documented as of this encounter
--- OUTSIDE RECORDS SUMMARY | 2024-03-31 04:08 | XMS_ITS | Encounter Summary ---
Author Organization [facility] Address [address] [place] [address] Care Team Providers Care Relay Associate Name Role Phone Shara LEWIS MD, Ben Webb Primary Care Provider + Reason for Visit * Referral (Routine) - Closed Specialty Diagnoses / Procedures Referred By Tram girffin Referred To Contact Rehabilitation Diagnoses Plantar fasciitis Pain in right foot Pain in left foot Difficulty in walking, not elsewhere classified Muscle weakness (generalized) Procedures Outpatient Physical Therapy Evaluate and Treat Ben Olmedo III, MD [address] [place] [phone] [facility] [phone] [facility] [place] [address] Referral ID Status Reason Start Date Expiration Date Visits Re quested Visits Authorized [id number] Closed 06/12/2022 09/10/2022 10 10 Encounter Details Date Type Department Care Team (Latest Contact Info) Description 06/30/2022 1:47 PM HST - 06/30/2022 11:59 PM HST Hospital Encounter [facility] Outpatient Rehab [phone] [facility] [place] [address] Marisol Morales, PT Discharge Disposition: Still A Patient Social History Tobacco Use Types Packs/Day Years Used Date Smoking Tobacco: Never Smokeless Tobacco: Never Alcohol Use Standard Drinks/Week Comments No 0 (1 standard drink = 0.6 oz pur e alcohol) Hunger Vital Sign Answer Date Recorded Within the past 12 months, y ou worried that your food would run out before you got the money to buy more. Never true 12/10/19 22 Within the past 12 months, t he food you bought just didn't last and you didn't have money to get more. Never true 12/09/2021 Sex and Gender Information Value Date Recorded Sex Assigned at Not on file Gender Identity Not on file Sexual Orientation Not on file Job Start Date Occupation Industry Not on file Not on file Not on file COVID-19 Exposure Response Date Recorded In the last 10 days, have yo u been in contact with someone who was confirmed or suspected to have Coronavirus/COVID-19? Unable to assess 06/25/2022 10: 28 AM HST documented as of this encounter Medications at Time of Discharge Medication Sig Dispensed Refills Start Date End Date linaCLOtide (Linzess) 145 mcg Oral Capsule Take 145 mcg by mouth before breakfast daily. HYDROcodone/acetaminop hen 5-325 mg Oral Tablet Take 1 Tablet by mouth every 6 hours as needed for Pain - Moderate. Do not drive or operate MasCupon 6 Tablet 12/15/2021 eszopiclone (LUNESTA) 3 mg Oral Tablet Take 3 mg by mouth at bedtime as needed for Sleep. ATORVASTATIN CALCIUM (ATORVASTATIN PO) Take by mouth. amitriptyline 100 mg Oral Tablet Take 100 mg by mouth at bedtime. predniSONE 10 mg Oral Tablet Take 1 Tablet by mouth as directed. TAKE 3 TABS (30 MG) DAILY X 4 DAYS THEN 2 TABS (20 MG) DAILY X 4 DAYS THEN 1 TAB (10 MG) DAILY X 4 DAYS #24 24 Tablet 1 04/23/2022 01/05/2023 documented as of this encounter Progress Notes * Marisol Morales, PT - 06/30/2022 2:00 PM HST OUTPATIENT PHYSICAL THERAPY TREATMENT NOTE Date of Service: 06/30/2022 Treatment Start Time: 1400 Referral Status: Authorized - Covered Benefit Plan of Care Visits: 4 of 10 (Expiration Date: 09/10/22) Authorized Visits: 4 of 10 (Expiration Date: 09/10/2022) ASSESSMENT Pt demonstrates poor anle motor control with baps board on B feet. He demonstrates B gastroc strength deficits and B ankle DF ROM restrictions contributing to his sxs. PLAN Continue stretching/ROM to B ankles, strengthening to gastroc/solues, and manual therapy/modalitiesas needed for pain control. SUBJECTIVE Pt states that he had an MRI to his L knee. He states that his plantar fascia sxs are the same. He is frustrated as he feels his knee is the real problem and the last time he had plantar fasciitis sxs, he just had to wait for the pain to go away. OBJECTIVE Patient Education: Daily habits;Pathology;Rehabilitation process;Proper posture and body mechanics Treatment: Therapeutic Exercises Therapeutic Exercises: 10 Exercise #4: ankle DF, PF, inversion, and eversion lvl 2 band 3 x 10 each Exercise #7: baps lvl 2 ball clockwise/counterclockwise x 10 each Exercise #8: tilt board A/P x 20 Today's Treatment Total Tx Time (minutes): 30 Timed Code Tx (minutes): 30 Therapeutic Exercise (Minutes): 30 Other Charges Charge ID Procedure Code Description Qty. Modifiers Irrigation Pump Installer User Diagnosis [id number] [facility] PT EXERCISE 15 MIN 2 Marisol Morales PT Signed by: Marisol Morales PT 1:1 Direct Physical Therapist Contact: Yes documented in this encounter Plan of Treatment Not on file documented as of this encounter Visit Diagnoses Not on filedocumented in this encounter Care Teams Relay Associate Relationship Specialty Start Date End Date Ben Olmedo III, MD [address] [place] [id number] PCP - General Family Medicine 10/28/21 documented as of this encounter
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
--- OUTSIDE RECORDS SUMMARY | 2024-03-31 04:08 | XMS_ITS | Encounter Summary ---
Author Organization [facility] Address [address] [place] [address] Care Team Providers Care Java Development Manager Name Role Phone Shara LEWIS MD, Ben Webb Primary Care Provider + Reason for Visit * Reason Comments Knee Pain LEFT knee pain. Revi ew MRI results done at [facility] on 06/25/22 Encounter Details Date Type Department Care Team (Late st Contact Info) Description 07/09/2022 2:45 PM HST Office Visit [facility] [phone] [facility] [address] [place] [address] Zbigniew Saavedra MD [phone] [facility] [address] [place] [phone] Chronic pain of left knee (Primary Dx); Chondromalacia, patella, left; Hamstring tendinitis of left thigh Discharge Disposition: D/C Home, Self Care Social History Tobacco Use Types Packs/Day Years [...] Recorded In the last 10 days, have casey u been in contact with someone who was confirmed or suspected to have Coronavirus/COVID-19? No / Unsure 07/09/2022 2:29 PM HST documented as of this encounter Last Filed Vital Signs Vital Sign Reading Time Taken Comments Blood Pressure 147/87 07/09/2022 2:35 PM HST Pulse 88 07/09/2022 2:35 PM HST Temperature 36.6 ??C (97.9 ??F) 07/09/2022 2:35 PM HS T Respiratory Rate 18 07/09/2022 2:35 PM HST Oxygen Saturation 97% 07/09/2022 2:35 PM HST Inhaled Oxygen Concentration - - Weight 72.8 kg (160 lb 6.4 oz) 07/09/2022 2:35 P M HST Height 182.9 cm (6' 0.01) 07/09/2022 2:35 PM HS T Body Mass Index 21.75 07/09/2022 2:35 PM HST documented in this encounter Patient Instructions * Patient Instructions* Ishaan Cohen - 07/09/2022 2:45 PM HST Please give Dr. Alexander St's office a call at [phone] to set up a consultation. documented in this encounter Progress Notes * Zbigniew Saavedra MD - 07/09/2022 2:45 PM HST CLINIC NOTE Chief Complaint: Chief Complaint Patient presents with Knee Pain LEFT knee pain. Review MRI results done at [facility] on 06/25/22 Subjective: Jens Ayala is a 77 year old male who had concerns including Knee Pain (LEFT knee pain. Review MRI results done at [facility] on 06/25/22). Patient presents for ongoing care of his left knee. He still reports notable and limiting pain. The majority the pain remains in the popliteal area. He has not noted any major swelling of the joint. He has pain with relatively simplistic activities of daily living. He has found an old knee sleeve/brace and states it may help a little bit. No mechanical symptoms or instability. He is also finding bilateral tennis elbow surgery as well as plantar fasciitis. Hehas pain daily, at rest and with actives of daily living. He is very frustrated given these functional limitations. He denies any constitutional symptoms. He does not have generalized joint swelling.No neurologic or radicular symptoms. No edema or circulatory change. The patient did undergo an MRIof his left knee and presents for its review and clinical correlation. No Known Allergies Past Medical History: Diagnosis Date Cancer (CMS/HCC) Kidney disease BPH Pure hypercholesterolemia Restless leg syndrome Sleep disorder Past Surgical History: Procedure Laterality Date HX KIDNEY/BLADDER/PROSTATE SURGERY prostate surgery HX ORTHOPEDIC SURGERY Right 2009 TENNIS ELBOW Family History Problem Relation Age of Onset Muscular dystrophy Mother Kidney Disease Father Heart Disease Father Cancer Maternal Grandfather Cancer Sister Social History Socioeconomic History Marital status: Single Tobacco Use Smoking status: Never Smokeless tobacco: Never Vaping Use Vaping Use: Never used Substance and Sexual Activity Alcohol use: No Drug use: No Social Determinants of Health Food Insecurity: No Food Insecurity Worried About Running Out of Food in the Last Year: Never true Ran Out of Food in the Last Year: Never true OB History No obstetric history on file. Outpatient Encounter Medications as of 07/09/2022 Medication Sig Dispense Refill linaCLOtide (Linzess) 145 mcg Oral Capsule Take 145 mcg by mouth before breakfast daily. HYDROcodone/acetaminophen 5-325 mg Oral Tablet Take 1 Tablet by mouth every 6 hours as needed for Pain - Moderate. Do not drive or operate [employer]id 6 Tablet 0 ALPRAZolam 0.5 mg Oral Tablet Take 0.5 mg by mouth 2 times a day. eszopiclone (LUNESTA) 3 mg Oral Tablet Take 3 mg by mouth at bedtime as needed for Sleep. ATORVASTATIN CALCIUM (ATORVASTATIN PO) Take by mouth. amitriptyline 100 mg Oral Tablet Take 100 mg by mouth at bedtime. predniSONE 10 mg Oral Tablet Take 1 Tablet by mouth as directed. TAKE 3 TABS (30 MG) DAILY X 4 DAYSTHEN 2 TABS (20 MG) DAILY X 4 DAYS THEN 1 TAB (10 MG) DAILY X 4 DAYS #24 (Patient not taking: Reported on 07/09/2022) 24 Tablet 1 escitalopram oxalate 10 mg Oral Tablet Take 10 mg by mouth every morning. No facility-administered encounter medications on file as of 07/09/2022. Review of Systems: Patient's review of systems was updated. There have been no significant changes including any significant hospitalizations or illnesses. No new significant symptomatology. Pertinent negatives are also included above. No constitutional type symptoms. Otherwise review of systems unremarkable for any changes. Objective: BP 147/87 (Taken On: Lt upper arm, Patient Position: Sitting, Cuff size: regular) Pulse 88 Temp36.6 ??C (97.9 ??F) (Infrared) Resp 18 Ht 182.9 cm (6' 0.01) Wt 72.8 kg (160 lb 6.4 oz) SpO2 97% BMI 21.75 kg/m?? Physical Examination: (If abnormal, please describe) GENERAL: Patient is alert and does not appear in any acute or significant distress. SKIN: The skin overlying the knee is intact and benign. VASCULAR: Circulatory exam unchanged and within normal limits. NEURO: No focal neurologic deficit. ORTHO: Ortho exam shows no effusion or soft tissue swelling. There is mild tenderness over the posterior medial joint line but not dramatic. I do not feel a popliteal mass or Barker's cyst. He does not have patellar apprehension or pain with compression. The MCL is intact. ACL intact. Extensor mechanism is intact. No referred hip or lumbar findings. Palpably the hamstrings are intact. His gait is minimally antalgic. Testing: We spent quite a bit of time going through the MRI that was done at the hospital study dated June 25, 2022. Was also compared to previous study that was done previously. There is medial meniscal degeneration but none of the series suggest that he has a meniscal tear. The patient does have some degree of chondromalacia. There is no significant chondromalacia of the weightbearing surfaces. Thereis no stress fracture. All major ligaments are intact. 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 A trace effusion may be noted. I showed him each of these distinct pathologies. He understands given the meniscal degeneration he is prone to having a tear but we do not see a specific tear at this time. Assessment: 1. Chronic pain of left knee 2. Chondromalacia, patella, left 3. Hamstring tendinitis of left thigh Chronic left knee pain etiology uncertain. He does have evidence of chondromalacia patella which can cause some referred pain in the knee as well as hamstring tendinitis but there is no evidence of major disruption of the structures. He has meniscal degeneration without a specific tear. The patienthas multiple tendon/fascia inflammatory conditions. Plan: As above we spent quite a bit time going through the MRI report and images. There is no structural abnormality that mandate surgical intervention. He understands it is possible small meniscal tear could escape detection but surgery would be unpredictable with this. He further understands the c onsequences of partial meniscectomy in the long-term. He understands my main recommendations would be either rheumatology consultation to see if he has some low-grade inflammatory process that could benefit from more significant medical management or second sports medicine opinion to see if there is anything we are missing. Regardless he would benefit from liberal heat and a significant stretching program. I do not think he should be running at any time in the future. He understands interventional options would include either cortisone injection for hopeful palliative purposes or arthroscopy for diagnostic and only potentially therapeutic purposes. Of course I prefer to maintain a nonsurgical approach. I gave him the names of some sports medicine doctors who do visit the [place] periodically as a second opinion. If he wanted a rheumatology consultation this would likely necessitate a trip off [place]. All questions at this time have been addressed. He did inquire about the potential benefits of a more rigid brace. He does not have an obvious ligament instability or significant degenerative condition with pseudolaxity but at some point this may be tried to see if it helps his symptoms. No orders of the defined types were placed in this encounter. Follow-up and Disposition Return if symptoms worsen or fail to improve. Zbigniew Saavedra MD documented in this encounter Plan of Treatment Not on file documented as of this encounter Visit Diagnoses Diagnosis Chronic pain of left knee- Primary Pain in joint, lower leg Chondromalacia, patella, left Hamstring tendinitis of left thigh documented in this encounter Care Teams Java Development Manager Relationship Specialty Start Date End Date Ben Olmedo III, MD [address] [place] [phone] PCP - General Family Medicine 10/28/21 documented as of this encounter
--- OUTSIDE RECORDS SUMMARY | 2024-03-31 04:08 | XMS_ITS | Encounter Summary ---
Author Organization [facility] Address [address] [place] [address] Care Team Providers Care Junior Administrative Assistant Name Role Phone Shara LEWIS MD, Ben Webb Primary Care Provider + Reason for Referral * Imaging (Routine) - Closed Specialty Diagnoses / Procedures Referred By Contac t Referred To Contact Diagnoses Bilateral plantar fasciitis Procedures XRAY - FOOT 3V (AP, LATERAL & OBLIQUE) Ben Brown III, MD [address] [place] [phone] Referral ID Status Reason Start Date Expiration Date Visits Re quested Visits Authorized [id number] Closed 06/05/2022 1 1 Reason for Visit * Imaging (Routine) - Closed Specialty Diagnoses / Procedures Referred By Contac t Referred To Contact Diagnoses Bilateral plantar fasciitis Procedures XRAY - FOOT 3V (AP, LATERAL & OBLIQUE) Ben Brown III, MD [address] [place] [phone] Referral ID Status Reason Start Date Expiration Date Visits Re quested Visits Authorized [id number] Closed 06/05/2022 1 1 Encounter Details Date Type Department Care Team (Latest Contact Info) Description 06/05/2022 11:00 AM HST - 06/05/2022 11:59 PM HST Hospital Encounter [facility] Services [phone] [facility] [place] [address] Discharge Disposition: D/C Home, Self Care Social [...] suspected to have Coronavirus/COVID-19? No / Unsure 06/05/2022 11:00 AM HST documented as of this encounter Medications at Time of Discharge Medication Sig Dispensed Refills Start Date End Date linaCLOtide (Linzess) 145 mcg Oral Capsule Take 145 mcg by mouth before breakfast daily. HYDROcodone/acetaminop hen 5-325 mg Oral Tablet Take 1 Tablet by mouth every 6 hours as needed for Pain - Moderate. Do not drive or operate [employer] 6 Tablet 12/15/2021 eszopiclone (LUNESTA) 3 mg [...] 04/23/2022 01/05/2023 documented as of this encounter Plan of Treatment Not on file documented as of this encounter Procedures Procedure Name Priority Date/Time Associated Diagnosis Comments XRAY - FOOT 3V (AP, LATERAL & OBLIQUE) Routine 06/05/2022 11:09 AM HST Bilateral plantar fasciitis documented in this encounter Results * XRAY - FOOT 3V (AP, LATERAL & OBLIQUE) (06/05/2022 11:09 AM HST) Anatomical Region Laterality Modality Foot Computed Radiogr aphy 06/05/2022 11:1 7 AM HST Impressions 06/05/2022 11:18 AM HST IMPRESSION: NO FRACTURE, MALALIGNMENT OR SOFT TISSUE ABNORMALITY. ELECTRONICALLY SIGNED BY: ??MARTIN SMITH WORKSTATION ID: [id number] Narrative 06/05/2022 11:18 AM HST Result Status: Finalized Authenticating Radiologist: Martin Smith Requestor: BEN BROWN III Reason for Exam: M72.2 EXAM: XRAY - FOOT 3V (AP, LATERAL AND OBLIQUE) ??LT HISTORY: M72.2 COMPARISON: None FINDINGS: 3 views left foot. The bones are well-mineralized cortical margins appear intact. No evidence of fracture. No bony erosions. The ??joint spaces are well preserved ?? Procedure Note Martin Smith MD - 06/05/2022 Result Status: Finalized Authenticating Radiologist: Martin Smith Requestor: BEN BROWN III Reason for Exam: M72.2 EXAM: XRAY - FOOT 3V (AP, LATERAL AND OBLIQUE) LT HISTORY: M72.2 COMPARISON: None FINDINGS: 3 views left foot. The bones are well-mineralized cortical margins appear intact. No evidenceof fracture. No bony erosions. The joint spaces are well preserved IMPRESSION: IMPRESSION: NO FRACTURE, MALALIGNMENT OR SOFT TISSUE ABNORMALITY. ELECTRONICALLY SIGNED BY: MARTIN SMITH WORKSTATION ID: [id number] Ben Brown III, MD XRAY-ORDERABLE documented in this encounter Visit Diagnoses Diagnosis Bilateral plantar fasciitis Plantar fascial fibromatosis documented in this encounter Care Teams Junior Administrative Assistant Relationship Specialty Start Date End Date Ben Brown III, MD [address] [place] [phone] PCP - General Family Medicine 10/28/21 documented as of this encounter
--- OUTSIDE RECORDS SUMMARY | 2024-03-31 04:08 | XMS_ITS | Encounter Summary ---
Author Organization [facility] Address [address] [place] [address] Care Team Providers Care Classified Copy Control Clerk Name Role Phone Shara LEWIS MD, Ben Webb Primary Care Provider + Reason for Visit * Referral (Routine) - Closed Specialty Diagnoses / Procedures Referred By Tram griffin Referred To Contact Rehabilitation Diagnoses Plantar fasciitis Pain in right foot Pain in left foot Difficulty in walking, not elsewhere classified Muscle weakness (generalized) Procedures Outpatient Physical Therapy Evaluate and Treat Ben Olmedo III, MD [address] [place] [phone] Me Op Physical Therapy [phone] [facility] [address] Referral ID Status Reason Start Date Expiration Date Visits Re quested Visits Authorized [id number] Closed 06/12/2022 09/10/2022 10 10 Encounter Details Date Type Department Care Team (Latest Contact Info) Description 06/17/2022 1:56 PM HST - 06/30/2022 11:59 PM HST Hospital Encounter [facility] [phone] [facility] [address] [place] [address] Marisol Morales, PT Discharge Disposition: [...] suspected to have Coronavirus/COVID-19? No / Unsure 06/16/2022 2:54 PM HST documented as of this encounter Medications at Time of Discharge Medication Sig Dispensed Refills Start Date End Date linaCLOtide (Linzess) 145 mcg Oral Capsule Take 145 mcg by mouth before breakfast daily. HYDROcodone/acetaminop hen 5-325 mg Oral Tablet Take 1 Tablet by mouth every 6 hours as needed for Pain - Moderate. Do not drive or operate [employer] 6 Tablet 12/15/2021 eszopiclone (LUNESTA) 3 mg [...] Progress Notes * Marisol Morales, PT - 06/17/2022 2:00 PM HST OUTPATIENT PHYSICAL THERAPY TREATMENT NOTE Date of Service: 06/17/2022 Treatment Start Time: 1400 Referral Status: Authorized - Covered Benefit Plan of Care Visits: 2 of 10 (Expiration Date: 09/10/22) Authorized Visits: 2 of 10 (Expiration Date: 09/10/2022) ASSESSMENT Pt presents with B ankle DF ROM restrictions and gastroc/soleus strength deficits contributing to his sxs and impairing his function. He participates in therapeutic exercise without increase in sxs. PLAN Continue stretching/ROM to B ankles, strengthening to B gastroc/soleus, and manual therapy/modalities as needed for pain control. SUBJECTIVE Pt states that his foot pain is about the same. He states that his feet felt pretty good yesterday but today after taking a nap and getting up, the pain was about the same. OBJECTIVE Patient Education: Daily habits;Home exercise program handout;Pathology;Rehabilitation process;Proper posture and body mechanics Treatment: Manual Therapy: STM plantar surface B feet Therapeutic Exercises Therapeutic Exercises: 10 Exercise #1: Seated towel scrunch x 10- reviewed for HEP Exercise #3: recumbant bike x 8 minutes. Exercise #4: ankle DF, PF, inversion, and eversion lvl1 band 3 x 10 each Exercise #5: marble cook pickled meat x 10 Exercise #6: great toe extension and lesser toe extension x 10 each Today's Treatment Total Tx Time (minutes): 55 Timed Code Tx (minutes): 55 Therapeutic Exercise (Minutes): 40 Manual Therapy (Minutes): 15 Other Charges Charge ID Procedure Code Description Qty. Modifiers Communications Supervisor User Diagnosis [id number] [facility] PT EXERCISE 15 MIN 3 Marisol Morales PT [id number] [facility] PT MANUAL THERAPY 15 MIN 1 Marisol Morales PT Signed by: Marisol Morales PT 1:1 Direct Physical Therapist Contact: Yes documented in this encounter Plan of Treatment Not on file documented as of this encounter Visit Diagnoses Not on filedocumented in this encounter Care Teams Classified Copy Control Clerk Relationship Specialty Start Date End Date Ben Olmedo III, MD [address] [place] [phone] PCP - General Family Medicine 10/28/21 documented as of this encounter
--- OUTSIDE RECORDS SUMMARY | 2024-03-31 04:08 | XMS_ITS | Encounter Summary ---
Author Organization [facility] Address [address] [place] [address] Care Team Providers Care Immunologist Name Role Phone Unavailable Primary Care Provider Unavailabl e Encounter Details Date Type Department Care Team (Late st Contact Info) Description 12/01/2005 Results Only [facility] [address] [place] [address] Amos Haque MD [address] [place] [address] Social History Tobacco Use Types Packs/Day Years Used Date Smoking Tobacco: Never Assessed Sex and Gender Information Value Date Recorded Sex Assigned at Not on file Gender Identity Not on file Sexual Orientation Not on file documented as of this encounter Plan of Treatment Not on file documented as of this encounter Procedures Procedure Name Priority Date/Time Associated Diagnosis Comments SURGICAL PATHOLOGY Routine 12/01/2005 0:00 EDT documented in this encounter Results * SURGICAL PATHOLOGY (12/01/2005 0:00 EDT) Pathology Report: SURGICAL PATHOLOGY REPORT Reports generated via electronic interface contain original data; however they are lacking the format of the original report. Caution should be taken when reading/interpreti ng unformatted reports. Name: ? MADAN DENNIS ? Accession #: ? [id number] ? : ? 1945 (Age: 60) ??M ? Collect Date: ? 12/01/2005 ? Location: ? [facility] ? Receive Date: ? 12/02/2005 ? Provider: AMOS HAQUE MD Copy to: MADAN WOLFE MD ? Final Pathologic Diagnosis: A. ?Colon, ascending polyp, biopsies: 1. ?Tubular adenomas (2). B. ?Rectum, polyp, biopsies: 1. ?Tubular adenoma (1). 2. ?Cauterized fragment of colonic mucosa (1). Document reviewed and electronically signed by: Marlen Amin MD Report ??Date: 12/05/2005 17:27 By the signature above, the attending physician certifies that he/she has personally conducted a gross and/or microscopic examination of the described specimens and rendered or confirmed the above diagnosis. Specimen(s) Received: A. ?Polyp ascending colon x2 B. ?Rectal polyp Clinical History: ? Constipation Gross Description: ? Received in Hollande's fixative labelled Dennis and polyp ascending colon are two watts-pink irregular soft tissue fragments averaging 0.2 x 0.2 x 0.2 cm. ??The specimen is entirely submitted as (A). Received in Hollande's fixative labelled Dennis and rectal polyp are two watts-pink irregular soft tissue fragments averaging 0.2 x 0.2 x 0.2 cm. ??The specimen is entirely submitted as (B). ??(Radha Boyer)/[facility] [place] End of Report LU GOETZ 12/01/2005 12/02/2005 15: 51 EDT Amos Haque MD PATHOLOGY ORDERABLES LU GOETZ [address] [place] [address] documented in this encounter Visit Diagnoses Not on filedocumented in this encounter
--- OUTSIDE RECORDS SUMMARY | 2024-03-31 04:08 | XMS_ITS | Encounter Summary ---
Author Organization [facility] Address [address] [place] [address] Care Team Providers Care Director [facility] Center Name Role Phone Shara LEWIS MD, Ben Webb Primary Care Provider + Reason for Referral * Imaging (Routine) - Closed Specialty Diagnoses / Procedures Referred By Tram griffin Referred To Contact Diagnoses Pain of both elbows Chronic pain of left knee Chondromalacia, patella, left Hamstring tendinitis of left thigh Procedures MRI - KNEE WITHOUT IV CONTRAST Joshua Patricio MD [phone] [facility] [address] [place] [address] Fl Mri [phone] [place] [address] Referral ID Status Reason Start Date Expiration Date Visits Re quested Visits Authorized [id number] Closed 04/23/2022 1 1 Reason for Visit * Reason Comments Knee Pain F/U VISIT FOR LEFT K NEE PAIN Encounter Details Date Type Department Care Team (Late st Contact Info) Description 04/23/2022 2:15 PM HST Office Visit [facility] [phone] [facility] [address] [place], [place] [address] Joshua Patricio MD [phone] [facility] [address] [place] [address] Pain of both elbows (Primary Dx); Chronic pain of left knee; Chondromalacia, patella, left; Hamstring tendinitis of left [...] In the last 10 days, have casey herr been in contact with someone who was confirmed or suspected to have Coronavirus/COVID-19? No / Unsure 04/23/2022 1:48 PM HST documented as of this encounter Last Filed Vital Signs Vital Sign Reading Time Taken Comments Blood Pressure 143/93 04/23/2022 1:57 PM HST Pulse 95 04/23/2022 1:57 PM HST Temperature 36.5 ??C (97.7 ??F) 04/23/2022 1:57 PM HS T Respiratory Rate 18 04/23/2022 1:57 PM HST Oxygen Saturation 95% 04/23/2022 1:57 PM HST Inhaled Oxygen Concentration - - Weight 74.5 kg (164 lb 4.8 oz) 04/23/2022 1:57 P M HST Height 182.9 cm (6' 0.01) 04/23/2022 1:57 PM HS T Body Mass Index 22.28 04/23/2022 1:57 PM HST documented in this encounter Patient Instructions * Patient Instructions* Racquel Clark W - 04/23/2022 2:15 PM HST An order for your Left Knee MRI has been sent to [facility] Radiology Dept #[phone]. Once I get approval from your insurance, I will let you know it is OK to call them directly to schedule. Once the DATE of your MRI is known, please call the office to schedule a follow up appointment to review those results. documented in this encounter Progress Notes * Joshua Patricio MD - 04/23/2022 2:15 PM HST CLINIC NOTE Chief Complaint: Chief Complaint Patient presents with Knee Pain F/U VISIT FOR LEFT KNEE PAIN Subjective: Jens Ayala is a 76 year old male who had concerns including Knee Pain (F/U VISIT FOR LEFT KNEE PAIN).. Patient presents for reevaluation of his left knee. The patient has had recurrent pain without an isolated injury event. Majority the pain remains in the popliteal area but also medial. His pain is largely activity related. More pain with pivoting and twisting activities. Swelling is been relatively mild. The quality of the pain seems a little different than his previous evaluations. He hashad no major swelling, redness warmth or more acute findings. No classic instability. Due to the increased symptoms he is requesting evaluation prior to an upcoming trip. The patient has increased activities and has been tolerating walking but more pain toward the end of a walk or any uneven ground. Incidentally the patient has been evaluated and states that they have found no evidence of multiplesclerosis. Furthermore the patient has undergone extensive prostate treatment and is on the [facility] with upcoming PSA pending. No Known Allergies Past Medical History: Diagnosis [...] on file. Outpatient Encounter Medications as of 04/23/2022 Medication Sig Dispense Refill predniSONE 10 mg Oral Tablet Take 1 Tablet by mouth as directed. TAKE 3 TABS (30 MG) DAILY X 4 DAYSTHEN 2 TABS (20 MG) DAILY X 4 DAYS THEN 1 TAB (10 MG) DAILY X 4 DAYS #24 24 Tablet 1 linaCLOtide (Linzess) 145 mcg Oral Capsule Take 145 mcg by mouth before breakfast daily. HYDROcodone/acetaminophen 5-325 mg Oral Tablet Take 1 Tablet by mouth every 6 hours as needed for Pain - Moderate. Do not drive or operate [employer] 6 Tablet 0 [DISCONTINUED] dutasteride (AVODART) 0.5 mg Oral Capsule Take 0.5 mg by mouth daily. ALPRAZolam 0.5 mg Oral Tablet Take 0.5 mg by mouth 2 times a day. escitalopram oxalate 10 mg Oral Tablet Take 10 mg by mouth every morning. eszopiclone (LUNESTA) 3 mg Oral Tablet Take 3 mg by mouth at bedtime as needed for Sleep. ATORVASTATIN CALCIUM (ATORVASTATIN PO) Take by mouth. [DISCONTINUED] tamsulosin 0.4 mg Oral Capsule, Sustained Release 24HR Take 0.4 mg by mouth at bedtime. amitriptyline 100 mg Oral Tablet Take 100 mg by mouth at bedtime. No facility-administered encounter medications on file as of 04/23/2022. Review of Systems: Patient's review of systems was updated. There have been no significant changes including any significant hospitalizations or illnesses. No new significant symptomatology. Pertinent negatives are also included above. No constitutional type symptoms. Otherwise review of systems unremarkable for any changes. Objective: BP (!) 143/93 (Taken On: Rt upper arm, Patient Position: Sitting, Cuff size: regular) Pulse 95 Temp 36.5 ??C (97.7 ??F) (Infrared) Resp 18 Ht 182.9 cm (6' 0.01) Wt 74.5 kg (164 lb 4.8 oz) SpO2 95% BMI 22.28 kg/m?? Physical Examination: (If abnormal, please describe) GENERAL: Patient is alert and does not appear in any acute or significant distress. SKIN: Skin around the entire left knee region is intact and benign. VASCULAR: No obvious edema or any signs of DVT. Adequate pulse present. NEURO: Gross motor and sensory exam intact. ORTHO: Exam shows there may be a trace or mild but benign effusion. The alignment of his knee is normal and symmetrical. He has tenderness on the medial and posterior medial joint line as well as tenderness and fullness in the popliteal area. There are some tenderness over the hamstring tendons. Heresist full extension and his hamstring flexibility is poor. The extensor mechanism is intact and there is no pain with patellar compression or apprehension type testing. No focal retinacular tenderness. MCL and ACL both intact. His gait is very slightly antalgic. No referred hip or lumbar findingspresently. Testing: Due to his recurrent pain given the previous notable degenerative change on his medial meniscus on the previous MRI 2 years ago I am recommending and requesting repeat MRI to assess for any progression or new pathology as well as to determine the etiology of his popliteal pain. Assessment: 1. Pain of both elbows MRI - KNEE WITHOUT IV CONTRAST 2. Chronic pain of left knee MRI - KNEE WITHOUT IV CONTRAST 3. Chondromalacia, patella, left MRI - KNEE WITHOUT IV CONTRAST 4. Hamstring tendinitis of left thigh MRI - KNEE WITHOUT IV CONTRAST Chronic left knee pain, possibly due to aggravation of underlying chondromalacia or possible new meniscal pathology. He has some degree of hamstring tendinitis which may be chronic and aggravated by his underlying lumbar condition with decreased flexibility. Plan: At this point we advocated continued conservative measures. For the reasons noted above givenhis recurrent and significant symptoms we will repeat the MRI to assess for any significant changes. In the meantime he will work on heat and gentle stretching. With recent walking he has been stretching more frequently and finding out this is helped. I did write a prescription for custom prednisone for future emergent use given his upcoming trip. We explained indications, rationales and side effects of this medication. In a cursory fashion we did discuss treatment questions regarding plantar fasciitis and lateral epicondylitis which have been chronic for him. I will see him upon completion of the MRI. No orders of the defined types were placed in this encounter. Follow-up and Disposition Return in about 2 weeks (around 05/07/2022) for Next scheduled follow-up, MRI review. Joshua Patricio MD documented in this encounter Plan of Treatment Not on file documented as of this encounter Results * MRI - KNEE WITHOUT IV CONTRAST (06/25/2022 11:16 AM HST) Anatomical Region Laterality Modality Knee Magnetic Resonan ce 06/25/2022 12:1 0 PM HST Impressions 06/25/2022 12:17 PM HST IMPRESSION: 1. ??LOW-GRADE CHONDROMALACIA, PATELLOFEMORAL COMPARTMENT PREDOMINANT. 2. ??MEDIAL MENISCAL INTRASUBSTANCE DEGENERATION WITHOUT DISCRETE TEAR. 3. ??MILD QUADRICEPS TENDINOSIS. ?? THANK YOU FOR THE REFERRAL. ELECTRONICALLY SIGNED BY: ??GIOVANY SEGOVIA WORKSTATION ID: [id number] Narrative 06/25/2022 12:17 PM HST Result Status: Finalized Authenticating Radiologist: Giovany Segovia Requestor: JOSHUA PATRICIO Reason for Exam: MENISCAL INJURY, KNEE; LT KNEE PAIN, POSSIBLE MENISCAL TEAR EXAM: MRI - KNEE WITHOUT IV CONTRAST ??LT CLINICAL INDICATION: MENISCAL INJURY, KNEE; LT KNEE PAIN, POSSIBLE MENISCAL TEAR COMPARISON: 11/04/2021 x-rays TECHNIQUE: Routine imaging of the left ??knee was performed on a 1.5 ??Donya scanner without IV or intra-articular contrast. FINDINGS: Osseous structures: Maintained alignment. No suspicious marrow signal is detected. Articular cartilage signal heterogeneity and surface irregularity indicates low-grade chondromalacia. ?? Small patellar enthesophyte at the quadriceps insertion. Ligaments and tendons: ACL, PCL, MCL, ??fibular collateral ligament, iliotibial band, biceps femoris, popliteus, gastrocnemius and pes anserinus tendons are normal. T2 hyperintense signal infiltrates the quadriceps tendon indicating tendinosis. Menisci: Mildly increased T2 signal infiltrates the medial meniscal body and posterior horn, without definite extension to the meniscal surface. ??Lateral meniscus is intact, normal in signal and contour. Joint capsule: No joint effusion, intra-articular body or popliteal fossa cyst is detected. Other structures: No neurovascular lesion or intramuscular abnormality is detected. Procedure Note Giovany Segovia MD - 06/25/2022 Result Status: Finalized Authenticating Radiologist: Giovany Segovia Requestor: JOSHUA PATRICIO Reason for Exam: MENISCAL INJURY, KNEE; LT KNEE PAIN, POSSIBLE MENISCALTEAR EXAM: MRI - KNEE WITHOUT IV CONTRAST LT CLINICAL INDICATION: MENISCAL INJURY, KNEE; LT KNEE PAIN, POSSIBLEMENISCAL TEAR COMPARISON: 11/04/2021 x-rays TECHNIQUE: Routine imaging of the left knee was performed on a 1.5 Teslascanner without IV or intra-articular contrast. FINDINGS: Osseous structures: Maintained alignment. No suspicious marrow signal isdetected. Articular cartilage signal heterogeneity and surface irregularity indicateslow-grade chondromalacia. Small patellar enthesophyte at the quadriceps insertion. Ligaments and tendons: ACL, PCL, MCL, fibular collateral ligament,iliotibial band, biceps femoris, popliteus, gastrocnemius and pes anserinus tendons are normal. [id number] signal infiltrates the quadriceps tendon indicating tendinosis. Menisci: Mildly increased T2 signal infiltrates the medial meniscal bodyand posterior horn, without definite extension to the meniscal surface. Lateral meniscus isintact, normal in signal and contour. Joint capsule: No joint effusion, intra-articular body or popliteal fossacyst is detected. Other structures: No neurovascular lesion or intramuscular abnormality isdetected. IMPRESSION: IMPRESSION: 1. LOW-GRADE CHONDROMALACIA, PATELLOFEMORAL COMPARTMENT PREDOMINANT. 2. MEDIAL MENISCAL INTRASUBSTANCE DEGENERATION WITHOUT DISCRETE TEAR. 3. MILD QUADRICEPS TENDINOSIS. THANK YOU FOR THE REFERRAL. ELECTRONICALLY SIGNED BY: GIOVANY SEGOVIA WORKSTATION ID: [id number] Joshua Patricio MD MRI-ORDERABLE documented in this encounter Visit Diagnoses Diagnosis Pain of both elbows- Primary Pain in joint, upper arm Chronic pain of left knee Pain in joint, lower leg Chondromalacia, patella, left Hamstring tendinitis of left thigh Pain of both elbows Pain in joint, upper arm Chronic pain of left knee Pain in joint, lower leg Chondromalacia, patella, left Hamstring tendinitis of left thigh documented in this encounter Care Teams Director [facility] Relationship Specialty Start Date End Date Ben Olmedo III, MD [address] [place] [phone] PCP - General Family Medicine 10/28/21 documented as of this encounter
--- OUTSIDE RECORDS SUMMARY | 2024-03-31 04:08 | XMS_ITS | Encounter Summary ---
Author Organization [facility] Address [address] [place] [address] Care Team Providers Care Studio Designer Name Role Phone Collin Aburto MD Primary Care Provider [phone] Reason for Visit * Reason Comments Follow-up Follow-up Encounter Details Date Type Department Care Team (Late st Contact Info) Description 11/27/2023 13:30 EDT Office Visit [facility] Orth[facility]ics [facility] Podiatry [address], [address] [place] [address] Nomi Nix DPM [address] [facility] [address] [place] [id number] Plantar fasciitis, left (Primary Dx); Onychomycosis Social History Tobacco Use Types Packs/Day Years [...] Sign Reading Time Taken Comments Blood Pressure - - Pulse 78 11/27/2023 1320 EDT Temperature - - Respiratory Rate - - Oxygen Saturation 100% 11/27/2023 1320 EDT Inhaled Oxygen Concentration - - Weight - - Height - - Body Mass Index - - documented in this encounter Ordered Prescriptions Prescription Sig Dispensed Refills Start Date End Da te tolnaftate (TINACTIN) 1 % creamIndications:Onychomyc osis Apply to affected toes daily 14 g 2 11/27/2023 documented in this encounter Progress Notes * Tai Vivas MA - 11/27/2023 1330 EDT On prazosin* for PTSD * Nomi Nix, DPM - 11/27/2023 1330 EDTAssociated Order(s): Small Joint Injection/Arthrocentesis Post-Procedure Diagnose(s): Plantar fasciitis, left CHIEF COMPLAINT: Chief Complaint Patient presents with Left Foot - Follow-up Right Foot - Follow-up SUBJECTIVE: Jens Ayala is a 78 y.o. male who presents today for follow up for plantar fasciitis ofhis left foot. He was last seen roughly 4 months ago for similar concerns however has begun recently, within the last few weeks noticing a substantial increase in pain in his heel, specifically firstthing in the morning or after periods of rest. His conservative management has not been able to decrease the pain enough and he is interested in an injection today. Denies any trauma to the area. Continues to wear good supportive shoes. Also has been seeing success using tinactin on his fungal nails and would like a prescription refilled. I have reviewed the medication list. Pertinent changes noted. ROS: Constitutional: negative for, fever, Musculoskeletal:positive for foot pain OBJECTIVE: Pulse 78 SpO2 100% Gen: A+Ox3, NAD Lower extremity examination Vascular: Dorsalis pedis and posterior pulses diminished, CFT delayed to all digits, TG warm to warm within normal limits. moderate Edema present Neurological: protective sensation diminished Dermatological: negative erythema, negative ecchymosis, no open lesions, no clinical signs of infection present, varicosities present bilaterally. Musculoskeletal: pain with palpation of the medial calcaneal tuberosity and posterior tibial tendonbilaterally. Single heel rise and double heel rise produces pain in medial ankle. Pes planus bilaterally. ASSESSMENT/PLAN: 1. Plantar fasciitis, left Plantar fascia Injection: Procedure Note Consent: The patient and I discussed the potential benefits and risks of corticosteroid injection. Oral and written informed consent has been given by the patient. Prep: Patient identity and site verification was confirmed by me. Skin prep was performed with alcohol. . Procedure: Injection into the left plantar fascia was performed with 2cc 0.5% Marcaine plain, 4 mg of dexamethasone phosphate. Hemostasis was obtained and band-aid placed to area. . Post Procedure: Post procedure instructions were provided. Patient will limit activity for the next3 days. The patient is to call if any problems or questions arise. Patient will follow up in 3-4 weeks . Small Joint Injection/Arthrocentesis on 11/27/2023 13:30 Medications: 2 mL BUPivacaine (PF) 0.5%; 4 mg dexAMETHasone 4 mg/mL 2. Onychomycosis Prescription Tinactin refille. Use as directed - tolnaftate (TINACTIN) 1 % cream; Apply to affected toes daily Dispense: 14 g; Refill: 2 This note was prepared using voice recognition software and the EMR. There may be inadvertent errors and omissions. Nomi Nix DPM 11/27/2023 documented in this encounter Plan of Treatment Not on file documented as of this encounter Procedures Procedure Name Priority Date/Time Associated Diagnosis Comments SMALL JOINT INJECTION/ARTHROCEN TESIS Routine 11/27/2023 13:30 EDT Plantar fasciitis, left documented in this encounter Results * DE ARTHROCENTESIS ASPIR&/INJ SMALL JT/BURSA W/O US (11/27/2023 13:30 EDT) Narrative [facility] POINT OF CARE - 11/27/2023 13:30 EDT Nomi Nix DPM ? 12/07/2023 ??7:45 Small Joint Injection/Arthrocentesis on 11/27/2023 13:30 Medications: 2 mL BUPivacaine (PF) 0.5%; 4 mg dexAMETHasone 4 mg/mL Nomi Nix DPM PROCEDURE/MINOR S URGICAL ORDERABLES [facility] POINT OF CARE documented in this encounter Visit Diagnoses Diagnosis Plantar fasciitis, left- Primary Plantar fascial fibromatosis Onychomycosis Dermatophytosis of nail documented in this encounter Administered Medications Inactive Administered Medications - up to 3 most recent administrations Medication Order MAR Action Action Date Dose Rate Site BUPivacaine (PF) (MARCAINE) 0.5% injection 2 mL 2 mL, injection, Once PRN Procedure, 1 dose, Starting on Thu11/27/23 at 1330, Until Thu11/27/23 at 1330, Routine Given 11/27/2023 13:30 EDT 2 mL dexAMETHasone (DECADRON) injection 4 mg 4 mg, other, Once PRN Procedure, 1 dose, Starting on Thu11/27/23 at 1330, Until Thu11/27/23 at 1330, Routine Given 11/27/2023 13:30 EDT 4 mg documented in this encounter Historical Medications * This list may reflect changes made after this encounter. Medication Sig Dispensed Refills Start Date End Date predniSONE (DELTASONE) 50 mg tablet Take 1 Tablet by mouth daily. Will begin to taper down added in this encounter Care Teams Studio Designer Relationship Specialty Start Date End Date Collin Aburto MD [address] [place] [address] PCP - General 01/28/11 documented as of this encounter
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
--- OUTSIDE RECORDS SUMMARY | 2024-03-31 04:08 | XMS_ITS | Encounter Summary ---
Author Organization [facility] Address [address] [place] [address] Care Team Providers Care Concrete Paving Supervisor Name Role Phone Shara LEWIS MD, Ben Webb Primary Care Provider + Reason for Visit * Reason Onset Date Comments Other 04/23/2022 MRI Lt knee Encounter Details Date Type Department Care Team (Late st Contact Info) Description 04/23/2022 Telephone [facility] [phone] [facility] [address] [place], [place] [address] Racquel Clark Other (MRI Lt knee) Social History Tobacco Use Types Packs/Day Years [...] suspected to have Coronavirus/COVID-19? No / Unsure 06/23/2022 1:34 PM HST documented as of this encounter Miscellaneous Notes * Telephone Encounter - Racquel Clark - 06/25/2022 10:07 AM HST Pt is scheduled to complete MRI today, 06/25/22 at [facility]. A f/u appt has been scheduled with Dr. Saavedra on 07/09/22 to review MRI results. No further action needed, closing encounter. * Telephone Encounter - Flori Costa - 04/29/2022 8:21 AM HST Patient called to check status of MRI auth, Let patient know his PCP office submitted a auth for the same testing and we are unable to submit another one. Advised patient to call his PCP to check thestatus of the authorization. * Telephone Encounter - Racquel Clark - 04/29/2022 8:15 AM HST Tried to start at PA with HMSA part C. Per Celi, pt's PCP requested for a Lt Knee PA on 04/24/22.We are not able to submit another request from our office. Ref#[id number] EST 04/29/22 NEED: - PA - MRI results Pt has a f/u appt with Dr. GURROLA to review MRI results * Telephone Encounter - Racquel Clark - 04/23/2022 3:43 PM HST An order for your Left Knee MRI has been sent to [facility] Radiology Dept #[phone]. Once I get approval from your insurance, I will let you know it is OK to call them directly to schedule. Once the DATE of your MRI is known, please call the office to schedule a follow up appointment to review those results. NEED: - PA - MRI results Pt has a f/u appt with Dr. GURROLA to review MRI results documented in this encounter Plan of Treatment Not on file documented as of this encounter Visit Diagnoses Not on filedocumented in this encounter Care Teams Concrete Paving Supervisor Relationship Specialty Start Date End Date Ben Olmedo III, MD [address] [place] [address] PCP - General Family Medicine 10/28/21 documented as of this encounter
--- OUTSIDE RECORDS SUMMARY | 2024-03-31 04:08 | XMS_ITS | Encounter Summary ---
Author Organization [facility] Address [address] [place] [address] Care Team Providers Care Leather Cartridge Belt Maker Name Role Phone Collin Aburto MD Primary Care Provider [phone] Encounter Details Date Type Department Care Team (Late st Contact Info) Description 12/24/2011 Results Only [facility] Services - [facility] [place] [address] [place], [place] [id number] Amos Haque MD [address] [place] [address] Social History Tobacco Use Types [...] Date/Time Associated Diagnosis Comments SURGICAL PATHOLOGY Routine 12/24/2011 0:00 EDT documented in this encounter Results * SURGICAL PATHOLOGY (12/24/2011 0:00 EDT) Pathology Report: SURGICAL PATHOLOGY REPORT Reports generated via electronic interface contain original data; however they are lacking the format of the original report. Caution should be taken when reading/interpreti ng unformatted reports. Name: ? DENNISMADAN Carmona ? Accession #: ? [id number] ? : ? 1945 (Age: 66) ??M ? Collect Date: ? 12/24/2011 ? Location: ? [facility] ? Receive Date: ? 12/24/2011 ? Provider: AMOS HAQUE MD Copy to: COLLIN ABURTO MD ? Final Pathologic Diagnosis: A. ?Colon, ascending, polyps, biopsies: 1. ?Tubular adenomas. B. ?Colon, transverse, polyp, biopsy: 1. ?Tubular adenoma. C. ?Colon, sigmoid, polyp, biopsy: 1. ?Tubular adenoma. Document reviewed and electronically signed by: RUBIA HWANG MD Report ??Date: 12/26/2011 13:22 By the signature above, the attending physician certifies that he/she has personally conducted a gross and/or microscopic examination of the described specimens and rendered or confirmed the above diagnosis. Specimen(s) Received: A. ?Ascending colon polyps x2 B. ? Transverse colon polyp C. ? Sigmoid polyp Clinical History: ? H/O colon adenomas Gross Description: ? Received in formalin labelled Madan Dennis and #1 ascending colon polyps x2 are two light watts biopsies measuring 0.2 x 0.2 x 0.1 cm and 0.3 x 0.3 x 0.2 cm. ??The specimens are submitted intact as (A). Received in formalin labelled Madan Dennis and #2 transverse colon polyp is a 0.4 x 0.3 x 0.2 cm light watts polyp. ??The specimen is submitted intact as (B). Received in formalin labelled Madan Dennis and #3 sigmoid polyp is a watts-brown polypoid structure measuring 0.7 x 0.4 x 0.4 cm. ??The resection margin is inked black. ??The specimen is bisected and submitted entirely as (C). ??(HAROON Mcelroy)/alia End of Report [facility] 12/24/2011 12/24/2011 17: 01 EDT Amos Haque MD PATHOLOGY ORDERABLES Performing Organization Address City/State/[facility] Co de Phone Number [facility] [address] [place] [address] documented in this encounter Visit Diagnoses Not on filedocumented in this encounter Care Teams Leather Cartridge Belt Maker Relationship Specialty Start Date End Date Collin Aburto MD [address] [place] [address] PCP - General 01/28/11 documented as of this encounter
--- OUTSIDE RECORDS SUMMARY | 2024-03-31 04:08 | XMS_ITS | Encounter Summary ---
Author Organization [facility] Address [address] [place] [address] Care Team Providers Care Comic Artist Name Role Phone Shara LEWIS MD, Ben Webb Primary Care Provider + Reason for Referral * Referral (Routine) - Closed Specialty Diagnoses / Procedures Referred By Contac t Referred To Contact Rehabilitation Diagnoses Pain, joint, knee, left Left lateral epicondylitis Chondromalacia of left patella Muscle weakness (generalized) Procedures Outpatient Physical Therapy Evaluate and Treat Ben Brown III, MD [address] [place] [phone] [facility] [phone] [place] [address] Referral ID Status Reason Start Date Expiration Date Visits Re quested Visits Authorized [id number] Closed 07/08/2022 10/06/2022 10 10 Reason for Visit * Referral (Routine) - Closed Specialty Diagnoses / Procedures Referred By Contac t Referred To Contact Rehabilitation Diagnoses Pain, joint, knee, left Left lateral epicondylitis Chondromalacia of left patella Muscle weakness (generalized) Procedures Outpatient Physical Therapy Evaluate and Treat Ben Brown III, MD [address] [place] [phone] [facility] Physical Therapy [phone] [facility] [place] [address] Referral ID Status Reason Start Date Expiration Date Visits Re quested Visits Authorized [id number] Closed 07/08/2022 10/06/2022 10 10 Encounter Details Date Type Department Care Team (Latest Contact Info) Description 07/08/2022 3:47 PM HST - 07/30/2022 11:59 PM HST Hospital Encounter [facility] Outpatient Rehab [id number] [facility] [address] Marisol Morales, PT Discharge Disposition: Still A [...] suspected to have Coronavirus/COVID-19? No / Unsure 07/20/2022 9:55 AM HST documented as of this encounter Medications at Time of Discharge Medication Sig Dispensed Refills Start Date End Date linaCLOtide (Linzess) 145 mcg Oral Capsule Take 145 mcg by mouth before breakfast daily. HYDROcodone/acetaminop hen 5-325 mg Oral Tablet Take 1 Tablet by mouth every 6 hours as needed for Pain - Moderate. Do not drive or operate AutoBike 6 Tablet 12/15/2021 eszopiclone (LUNESTA) 3 mg [...] 04/23/2022 01/05/2023 documented as of this encounter Consult Notes * Marisol Morales, PT - 07/08/2022 4:00 PM HST OUTPATIENT PHYSICAL THERAPY INITIAL EVALUATION Name: Jens Ayala : 1945 Date of Service: 07/08/2022 Referring Physician / NPP: Ben Brown III, MD Referral / Medical Diagnosis: Pain, joint, knee, left Left lateral epicondylitis Chondromalacia of left patella PT diagnosis: Left Knee Pain [M25.562], Generalized Muscle Weakness [M62.81] ASSESSMENT / REASON FOR SKILLED THERAPY Jens Ayala is a 77 y.o. male who presents for PT evaluation with a primary c/o L knee pain. Pt demonstrates pain, L hip strength deficits, L knee extension ROM restrictions, and muscle imbalances limiting his ability to participate in daily activities and recreation. He would benefit greatly from skilled PT services to address these concerns, improve functional outcomes, and facilitate return to prior level of function and activity. Pt was A&O x 4 and gave informed consent for physical therapy evaluation and treatment. Care Home Goals (see Duration below) Pt will be independent with HEP in order to self-manage sxs and improve functional independence. Pt will report L knee pain of no greater than 1/10 while walking and standing to improve independence and return to previous activities and prior level of function. Pt will improve score on LEFS to at least 60% to demonstrate improved function and reduced disability. Pt will improve L knee extension ROM by 5 degrees for improved independence with daily activities and recreation PROGNOSIS/REHABILITATION POTENTIAL:Good PLAN OF TREATMENT: Frequency: 2 x/week Duration: 10 visits by 10/08/2022 (to include today's treatment 07/08/2022) Interventions: Therapeutic exercise, Therapeutic activity, Neuromuscular re- education, Manual therapy, Home exercise program instruction, Patient/caregiver education, Body mechanics/posture training,Self-care/home management Modalities: Ultrasound and Electrical Stimulation, Gait Training, and Taping and Strapping Recommendations: Initiate above treatment plan Thank you for the opportunity to work with your patient. Please call me at [phone] if you haveany concerns. Marisol Morales, PT SUBJECTIVE Patient is a 77 year old male with chief complaints of L knee pain since . He states that at that time, he was shoveling snow in [place] and must have pushed his foot too forcibly into the shovel injuring his knee. He states that the sxs have come and gone but this has become a chronic issue. He received PT in the past with minimal improvement. His pain is posterior/lateral knee. Date of Referral: 07/02/2022 (date of most recent flare-up of symptoms - the patient notes this to be chronic but frequently recurring in nature) Current functional limitation(s): walking, standing, stairs, and squatting. Prior to symptom onset, patient was able to perform the above listed functions with minimal difficulty. Preferred Language: Turkmen [1] Co-morbidities/personal factors: chronic nature of sxs, received PT for same sxs in the past with minimal relief. The above is/are relevant to the physical therapy plan of care because development of compensatory strategies. Patient / Caregiver Stated Goals: Patient would like to have a fairly normal life and to be able to walk a mile or two. Imaging: MRI - KNEE WITHOUT IV CONTRAST Result Date: 06/25/2022 Result Status: Finalized Authenticating Radiologist: Giovany Segovia Requestor: JOSHUA PATRICIO Reason for Exam: MENISCAL INJURY, KNEE; LT KNEE PAIN, POSSIBLE MENISCAL TEAR EXAM: MRI - KNEE WITHOUT IV CONTRAST LT CLINICAL INDICATION: MENISCAL INJURY, KNEE; LT KNEE PAIN, POSSIBLE MENISCAL TEAR [place] RISON: 11/04/2021 x-rays TECHNIQUE: Routine imaging of the left knee was performed on a 1.5 Donya scanner without IV or intra-articular contrast. FINDINGS: Osseous structures: Maintained alignment. No suspicious marrow signal is detected. Articular cartilage signal heterogeneity and surface irregularity indicates low-grade chondromalacia. Small patellar enthesophyte at the quadriceps insertion. Ligaments and tendons: ACL, PCL, MCL, fibular collateral ligament, iliotibial band, biceps femoris, popliteus, gastrocnemius and pes anserinus tendons are normal. T2 hyperintense signal infiltrates thequadriceps tendon indicating tendinosis. Menisci: Mildly increased T2 signal infiltrates the medialmeniscal body and posterior horn, without definite extension to the meniscal surface. Lateral meniscus is intact, normal in signal and contour. Joint capsule: No joint effusion, intra-articular body or popliteal fossa cyst is detected. Other structures: No neurovascular lesion or intramuscular abnor mality is detected. IMPRESSION: 1. LOW-GRADE CHONDROMALACIA, PATELLOFEMORAL COMPARTMENT PREDOMINANT. 2. MEDIAL MENISCALINTRASUBSTANCE DEGENERATION WITHOUT DISCRETE TEAR. 3. MILD QUADRICEPS TENDINOSIS. THANK YOU FOR THEREFERRAL. ELECTRONICALLY SIGNED BY: GIOVANY SEGOVIA WORKSTATION ID: [id number] XRAY - FOOT 3V (AP, LATERAL & OBLIQUE) Result Date: 06/05/2022 Result Status: Finalized Authenticating Radiologist: Martin Smith Requestor: BEN BROWN III Reason for Exam: M72.2 EXAM: XRAY - FOOT 3V (AP, LATERAL AND OBLIQUE) RT HISTORY: M72.2 COMPARISON: None FINDINGS: 3 views of the right foot. The bones are well-mineralized. Cortical margins intact. No bony erosions. Mild degenerative narrowing of the 1st metatarsal phalangeal joint. No other significant findings. IMPRESSION: MILD DEGENERATIVE CHANGES 1ST METATARSAL PHALANGEAL JOINT. ELECTRONICALLY SIGNED BY: MARTIN SMITH WORKSTATION ID: [id number] XRAY - FOOT 3V (AP, LATERAL & OBLIQUE) Result Date: 06/05/2022 Result Status: Finalized Authenticating Radiologist: Martin Smith Requestor: BEN BROWN III Reason for Exam: M72.2 EXAM: XRAY - FOOT 3V (AP, LATERAL AND OBLIQUE) LT HISTORY: M72.2 COMPARISON: None FINDINGS: 3 views left foot. The bones are well-mineralized cortical margins appear intact. No evidence of fracture. No bony erosions. The joint spaces are well preserved IMPRESSION: NO FRACTURE, MALALIGNMENT OR SOFT TISSUE ABNORMALITY. ELECTRONICALLY SIGNED BY: MARTIN SMITH WORKSTATION ID: [id number] Allergies: Patient has no known allergies. Past Medical History: Diagnosis Date Cancer (CMS/HCC) Kidney disease BPH Pure hypercholesterolemia Restless leg syndrome Sleep disorder Past Surgical History: Procedure Laterality Date HX KIDNEY/BLADDER/PROSTATE SURGERY prostate surgery HX ORTHOPEDIC SURGERY Right 2009 [facility] Current Outpatient Medications Medication Sig Dispense Refill predniSONE 10 mg Oral Tablet Take 1 Tablet by mouth as directed. TAKE 3 TABS (30 MG) DAILY X 4 DAYSTHEN 2 TABS (20 MG) DAILY X 4 DAYS THEN 1 TAB (10 MG) DAILY X 4 DAYS #24 (Patient not taking: Reported on 07/09/2022) 24 Tablet 1 linaCLOtide (Linzess) 145 mcg Oral Capsule Take 145 mcg by mouth before breakfast daily. HYDROcodone/acetaminophen 5-325 mg Oral Tablet Take 1 Tablet by mouth every 6 hours as needed for Pain - Moderate. Do not drive or operate AutoBike 6 Tablet 0 ALPRAZolam 0.5 mg Oral [...] 100 mg by mouth at bedtime. No current facility-administered medications for this encounter. OBJECTIVE Pain Location: 07/08/2022 L knee At most 4/10 At least 1/10 Current 1/10 Range of motion Right Left Flexion WFL 140 Extension WFL (-) 6 Manual muscle test Right Left Quads 5/5 4+/5 Glut med 5/5 3+/5 Hamstrings 5/5 4/5 Gastroc 5/5 4-/5 Palpation: Tenderness to biceps femoris tendon Physiological factors affecting the patient's clinical presentation include pain, and are stable & uncomplicated Functional Outcome Scales Flowsheet Row Evaluation from 06/12/2022 in [facility] Outpatient Rehab Evaluation from 11/21/2020in [facility] Outpatient [facility] Evaluation from 12/27/2019 in [facility] Outpatient Re[facility] Lower Extremity % of Maximum Function 42.5 71 54 Treatment performed today: OUTPATIENT PHYSICAL THERAPY TREATMENT NOTE Date of Service: 07/08/2022 Treatment Start Time: 1630 Referral Status: New Request - Plan of Care Visits: (Expiration Date: 10/06/22) Authorized Visits: 1 of 2 (Expiration Date: No expiration date.) ASSESSMENT See eval PLAN Continue stretching to L hamstrings, strengthening to LLE, and manual therapy/modalities as needed for pain control. OBJECTIVE Patient Education: Daily habits;Home exercise program handout;Pathology;Rehabilitation process;Proper posture and body mechanics Treatment: Manual Therapy: STM L hamstring, anterior tib, quad, and IT band. Therapeutic Exercises Therapeutic Exercises: 10 Exercise #1: hooklying clamshells lvl 2 band 3 x 10 Exercise #2: hooklying hip add with ball at knees 3 x 10 Home Exercise Program Home Exercise Program: 1 1: Access Code: [email or web address] URL: [email or web address] Date: 07/10/2022 Prepared by: Marisol Morales Exercises Hooklying Clamshell with Resistance - 1 x daily - 7 x weekly - 3 sets - 10 reps Supine Hip Adduction Isometric with Ball - 1 x daily - 7 x weekly - 3 sets - 10 reps Today's Treatment Total Tx Time (minutes): 30 Timed Code Tx (minutes): 30 Therapeutic Exercise (Minutes): 15 Manual Therapy (Minutes): 15 1:1 Direct Physical Therapist Contact: Yes Other Charges Charge ID Procedure Code Description Qty. Modifiers Global Mobility Specialist User Diagnosis [id number] [facility] PT INIT EVAL LOW 1 Marisol Morales PT [id number] [facility] PT EXERCISE 15 MIN 1 Marisol Morales PT [id number] [facility] PT MANUAL THERAPY 15 MIN 1 Marisol Morales PT Signed by: Marisol Morales PT documented in this encounter Plan of Treatment Scheduled Orders Name Type Priority Associated Diagnoses Orde r Schedule Outpatient Physical Therapy Evaluate and Treat Rehabilitation Routine Pain, joint, knee, left Left lateral epicondylitis Chondromalacia of left patella 1 Occurrences starting 07/08/2022 until 07/08/2022 documented as of this encounter Visit Diagnoses Diagnosis Pain, joint, knee, left Pain in joint, lower leg Left lateral epicondylitis Lateral epicondylitis of elbow Chondromalacia of left patella Chondromalacia of patella documented in this encounter Care Teams Comic Artist Relationship Specialty Start Date End Date Ben Brown III, MD [address] [place] [phone] PCP - General Family Medicine 10/28/21 documented as of this encounter
--- OUTSIDE RECORDS SUMMARY | 2024-03-31 04:08 | XMS_ITS | Encounter Summary ---
Author Organization [facility] Address [address] [place] [address] Care Team Providers Care Suction Drum Drier Operator Name Role Phone Collin Aburto MD Primary Care Provider [phone] Encounter Details Date Type Department Care Team (Latest Contact Info) Description 07/15/2011 9:45 EST - 07/15/2011 23:59 EST Hospital Encounter [facility] [address] [place] [address] Chester Myers MD [address] [facility], [address] [place] [phone] Discharge Disposition: Home or Self Care Social History Tobacco Use Types Packs/Day Years Used Date Smoking Tobacco: Never Assessed Sex and Gender Information Value Date Recorded Sex Assigned at Not on file Gender Identity Not on file Sexual Orientation Not on file documented as of this encounter Discharge Disposition Disposition Code Departure Means Destination Home or Self Fdc documented in this encounter Plan of Treatment Not on file documented as of this encounter Visit Diagnoses Not on filedocumented in this encounter Care Teams Suction Drum Drier Operator Relationship Specialty Start Date End Date Collin Aburto MD [address] [place] [phone] PCP - General 01/28/11 documented as of this encounter
--- OUTSIDE RECORDS SUMMARY | 2024-03-31 04:08 | XMS_ITS | Encounter Summary ---
Author Organization [facility] Address [address] [place] [address] Care Team Providers Care Convention Planner Name Role Phone Shara LEWIS MD, Ben Webb Primary Care Provider + Reason for Visit * Reason Comments Med Refill Req. Clonazepam 0.5-1 tab in AM, then 10 hours later take 2 tabs; longs refuses to refill unless he sees a doctor; unable to see PCP Encounter Details Date Type Department Care Team (Late st Contact Info) Description 12/16/2022 8:05 AM HST - 12/16/2022 8:[address] [facility] Emergency Dept [phone] [facility] [place] [address] Claude Matthew MD [phone] [facility] [phone] Discharge Disposition: D/C Home, Self Care Social History Tobacco Use Types Packs/Day Years Used Date Smoking Tobacco: Never Smokeless Tobacco: Never Alcohol Use Standard Drinks/Week Comments No 0 (1 standard drink = 0.6 oz pur e alcohol) [facility] Food Insecurity Answer Date Recorde d Within the past 12 months, y ou worried that your food would run out before you got the money to buy more. Never true 12/17/19 Within the past 12 months, t he food you bought just didn't last and you didn't have money to get more. Never true 12/16/2022 Within the past 12 months, t he food you bought just didn't last and you didn't have money to get more. Not on file 12/16/2022 [facility] Food Insecurity Answer Date Recorde d Within the past 12 months, y ou worried that your food would run out before you got the money to buy more. Never true 12/17/19 23 Within the past 12 months, t he food you bought just didn't last and you didn't have money to get more. Never true 12/16/2022 Within the past 12 months, t he food you bought just didn't last and you didn't have money to get more. Not on file 12/16/2022 Within the past 12 months, t he food you bought just didn't last and you didn't have money to get more Not on file 12/16/2022 Sex and Gender Information Value Date Recorded [...] suspected to have Coronavirus/COVID-19? No / Unsure 12/16/2022 8:07 AM HST documented as of this encounter Last Filed Vital Signs Vital Sign Reading Time Taken Comments Blood Pressure 167/83 12/16/2022 8:10 AM HST Pulse 107 12/16/2022 8:10 AM HST Temperature 36.5 ??C (97.7 ??F) 12/16/2022 8:10 AM HS T Respiratory Rate 16 12/16/2022 8:10 AM HST Oxygen Saturation 98% 12/16/2022 8:10 AM HST Inhaled Oxygen Concentration - - Weight 68.9 kg (152 lb) 12/16/2022 8:10 AM HST Height 182.9 cm (6') 12/16/2022 8:10 AM HST Body Mass Index 20.61 12/16/2022 8:10 AM HST documented in this encounter Medications at Time of Discharge Medication Sig Dispensed Refills Start Date End Date clonazePAM (KlonoPIN) 0.5 mg Oral Tablet Take 1 Tablet by mouth 2 times a day. Take 1 tab in the AM and 10 hours later take 2 tabs by mouth 30 Tablet 12/16/2022 linaCLOtide (Linzess) 145 mcg Oral Capsule Take 145 mcg by mouth before breakfast daily. HYDROcodone/acetaminop hen 5-325 mg Oral Tablet Take 1 Tablet by mouth every 6 hours as needed for Pain - Moderate. 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 Patient Food Insecurity Within the past 12 months, you worried that your food would run out before you got the money to buymore. Never true Within the past 12 months, the food you bought just didn't last and you didn't have money to get more. Never true Housing Insecurity What is your living situation today? I have a steady place to live documented in this encounter ED Notes * Claude Matthew MD - 12/16/2022 8:34 AM HST Jens Ayala, 77 year old male CSN: [id number] ED Date of Service: 12/16/2022 Arrival time:8:00 AM Arrival mode: Walked Chief Complaint Patient presents with Med Refill Req. Clonazepam 0.5-1 tab in AM, then 10 hours later take 2 tabs; longs refuses to refill unless he seesa doctor; unable to see PCP Initial C-SSRS Score: Low (12/16/22 0811) HPI Pt is a 77 y M presenting with request for medication refill. Has been on intermission coordinator benzodiazepines. Had refill on prescription and tried to fill at [facility] but is outdated and had to see physician prior to rx filled. Tried to get appointment with PCP but was unable to get one until next week. Currently feels shaky but denies other symptoms or complaints. Past Medical History: Diagnosis Date Cancer (CMS/HCC) Kidney disease BPH Pure hypercholesterolemia Restless leg syndrome Sleep disorder There is no immunization history on file for this patient. Past Surgical History: Procedure Laterality Date HX KIDNEY/BLADDER/PROSTATE SURGERY prostate surgery HX ORTHOPEDIC SURGERY Right 2009 [facility] Family History Problem Relation Age of Onset Muscular dystrophy Mother Kidney Disease Father Heart Disease Father Cancer Maternal Grandfather Cancer Sister Social History Tobacco Use Smoking status: Never Smokeless tobacco: Never Vaping Use Vaping status: Never Used Substance Use Topics Alcohol use: No Social History Substance and Sexual Activity Drug use: No Allergies: Patient has no known allergies. Home Meds: Prior to Admission Medications Prescriptions Last Dose Informant Patient Reported? Taking? predniSONE 10 mg Oral Tablet No No Take 1 Tablet by mouth as directed. TAKE 3 TABS (30 MG) DAILY X 4 DAYS THEN 2 TABS (20 MG) DAILY X 4 DAYS THEN 1 TAB (10 MG) DAILY X 4 DAYS #24 Patient not taking: Reported on 07/09/2022 linaCLOtide (Linzess) 145 mcg Oral Capsule Yes No Take 145 mcg by mouth before breakfast daily. HYDROcodone/acetaminophen 5-325 mg Oral Tablet No No Take 1 Tablet by mouth every 6 hours as needed for Pain - Moderate. Do not drive or operate [employer] ALPRAZolam 0.5 mg Oral Tablet Yes No Take 0.5 mg by mouth 2 times a day. escitalopram oxalate 10 mg Oral Tablet Yes No Take 10 mg by mouth every morning. eszopiclone (LUNESTA) 3 mg Oral Tablet Yes No Take 3 mg by mouth at bedtime as needed for Sleep. ATORVASTATIN CALCIUM (ATORVASTATIN PO) Yes No Take by mouth. amitriptyline 100 mg Oral Tablet Yes No Take 100 mg by mouth at bedtime. Review of Systems Constitutional: Negative for chills and fever. HENT: Negative for ear pain and sore throat. Eyes: Negative for pain and visual disturbance. Respiratory: Negative for cough and shortness of breath. Cardiovascular: Negative for chest pain and palpitations. Gastrointestinal: Negative for abdominal pain and vomiting. Genitourinary: Negative for dysuria and hematuria. Musculoskeletal: Negative for arthralgias and back pain. Skin: Negative for color change and rash. Neurological: Negative for seizures and syncope. Psychiatric/Behavioral: The patient is nervous/anxious. All other systems reviewed and are negative. Initial vital signs: BP: 167/83, Pulse: 107, Resp: 16, Temp: 36.5 ??C (97.7 ??F), SpO2 (%): 98 %, Room Air/Liter Flow (LPM): Room air Most recent vital signs: BP: 167/83, Pulse: 107, Resp: 16, Temp: 36.5 ??C (97.7 ??F), SpO2 (%): 98 %, Room Air/Liter Flow (LPM): Room air Physical Exam Vitals and nursing note reviewed. Constitutional: General: He is not in acute distress. Appearance: He is well-developed. HENT: Head: Normocephalic and atraumatic. Eyes: Conjunctiva/sclera: Conjunctivae normal. Cardiovascular: Rate and Rhythm: Normal rate and regular rhythm. Heart sounds: No murmur heard. Pulmonary: Effort: Pulmonary effort is normal. No respiratory distress. Breath sounds: Normal breath sounds. Abdominal: Palpations: Abdomen is soft. Tenderness: There is no abdominal tenderness. Musculoskeletal: General: No swelling. Cervical back: Neck supple. Skin: General: Skin is warm and dry. Capillary Refill: Capillary refill takes less than 2 seconds. Neurological: Mental Status: He is alert. Psychiatric: Mood and Affect: Mood normal. Procedures Procedures Data Reviewed Consults: None EKG: No orders of the defined types were placed in this encounter. EKG Interpretation: No EKG ordered. Imaging: None Emergency Physician interpretation: None No results found for this visit on 12/16/22. Lab: No results found for this visit on 12/16/22. All Medications ordered during this Encounter: Medications - No data to display Medical Decision Making: Scoring Tools: Medical Decision Making Pt is a 77 y M presenting with request for medication refill. Has been on correction benzodiazepines. Had refill on prescription and tried to fill at [facility] but is outdated and had to see physician prior to rx filled. Tried to get appointment with PCP but was unable to get one until next week. Currently feels shaky but denies other symptoms or complaints. HAND BLOCKER consulted and consistent with history.Has appointment with Dr. Contreras next Thursday. Given rx, discussed return precautions, PCP fu. Critical Care Time: No critical care was provided. Clinical Impression: Medication refill (primary encounter diagnosis) Disposition: ED Dispo & COD ED Disposition Discharge Condition -- Date/Time ThuDec 16, 2022 8:19 AM Comment -- No discharge procedures on file. ED Prescriptions Medication Sig Dispense Start Date End Date Auth. Provider clonazePAM (KlonoPIN) 0.5 mg Oral Tablet Take 1 Tablet by mouth 2 times a day. Take 1 tab in the AMand 10 hours later take 2 tabs by mouth 30 Tablet 12/16/2022 -- Claude Matthew MD Follow up provider: Ben Olmedo III, MD [phone] [facility] [phone] Schedule an appointment as soon as possible for a visit [facility] Emergency Dept [phone] [facility] [phone] As needed, If symptoms worsen CLAUDE MATTHEW Physician 12/16/2022 08:36 * June Mariscal RN - 12/16/2022 8:23 AM HST Jens Ayala was discharged from the Emergency Department ambulating, accompanied by no one. Patient/guardian verbalized understanding of all discharge instructions. Jens Ayala received: meds e-Prescribed to the patients pharmacy of record. Patient: was NOT given narcotics or sedatives during this ED visit. Pain level 0=no pain, awake, alert, oriented x 3 and walks with steady gait. BP 167/83 Pulse 107 Temp 36.5 ??C (97.7 ??F) (Temporal Artery) Resp 16 Ht 182.9 cm (6') Wt 68.9 kg (152 lb) SpO2 98% BMI 20.61 kg/m?? The patient received the following medications during their ED encounter: Administrations This Visit None documented in this encounter Plan of Treatment Not on file documented as of this encounter Visit Diagnoses Diagnosis Medication refill- Primary Issue of repeat prescriptions documented in this encounter Care Teams Convention Planner Relationship Specialty Start Date End Date Ben Olmedo III, MD [address] [place] [phone] PCP - General Family Medicine 10/28/21 documented as of this encounter
--- OUTSIDE RECORDS SUMMARY | 2024-03-31 04:08 | XMS_ITS | Encounter Summary ---
Author Organization [facility] Address [address] [place] [address] Care Team Providers Care Inseminator Name Role Phone Shara LEWIS MD, Ben Webb Primary Care Provider + Reason for Visit * Referral (Routine) - Closed Specialty Diagnoses / Procedures Referred By Tram griffin Referred To Contact Rehabilitation Diagnoses Plantar fasciitis Pain in right foot Pain in left foot Difficulty in walking, not elsewhere classified Muscle weakness (generalized) Procedures Outpatient Physical Therapy Evaluate and Treat Ben Olmedo III, MD [address] [place] [phone] [place] [facility] [phone] [facility] [place] [address] Referral ID Status Reason Start Date Expiration Date Visits Re quested Visits Authorized [id number] Closed 06/12/2022 09/10/2022 10 10 Encounter Details Date Type Department Care Team (Latest Contact Info) Description 06/23/2022 1:58 PM HST - 06/30/2022 11:59 PM HST Hospital Encounter [facility] Outpatient Rehab [phone] [facility] [place] [address] Marisol Morales, PT Discharge Disposition: [...] - Moderate. Do not drive or operate [employer] 6 Tablet 12/15/2021 eszopiclone (LUNESTA) 3 mg [...] Progress Notes * Marisol Morales, PT - 06/23/2022 2:00 PM HST OUTPATIENT PHYSICAL THERAPY TREATMENT NOTE Date of Service: 06/23/2022 Treatment Start Time: 1400 Referral Status: Authorized - Covered Benefit Plan of Care Visits: 3 of 10 (Expiration Date: 09/10/22) Authorized Visits: 3 of 10 (Expiration Date: 09/10/2022) ASSESSMENT Pt presents to clinic this afternoon with increased sxs to both B elbows and L knee and minimal change in B feet. Focused treatment on US and manual therapy to reduce sxs to B plantar fascia. He would benefit from continued skilled PT intervention to address B ankle ROM and strength deficits in order to facilitate improved functional independence. PLAN Continue manual therapy/modalities as needed for pain control, stretching/ROM to B ankles, strengthening to B gastroc/soleus. SUBJECTIVE Pt states that the day after his last session, his L knee was really sore. He states that he has been compliant with his home program 75% of the time. OBJECTIVE Patient Education: Daily habits;Rehabilitation process Treatment: Manual Therapy: STM plantar surface B feet, achilles Other Treatment: US to B plantar fascia 8 minutes each (16 minutes total)- 1Mhz with 1.1 W/cm2 Today's Treatment Total Tx Time (minutes): 41 Timed Code Tx (minutes): 41 Manual Therapy (Minutes): 25 Ultrasound (Minutes): 16 Other Charges Charge ID Procedure Code Description Qty. Modifiers Film Technician User Diagnosis [id number] [facility] PT MANUAL THERAPY 15 MIN 2 Marisol Morales PT [id number] [facility] PT ULTRASOUND 15 MIN 1 Marisol Morales PT Signed by: Marisol Morales PT 1:1 Direct Physical Therapist Contact: Yes documented in this encounter Plan of Treatment Not on file documented as of this encounter Visit Diagnoses Not on filedocumented in this encounter Care Teams Inseminator Relationship Specialty Start Date End Date Ben Olmedo III, MD [address] [place] [phone] PCP - General Family Medicine 10/28/21 documented as of this encounter
--- OUTSIDE RECORDS SUMMARY | 2024-03-31 04:08 | XMS_ITS | Encounter Summary ---
Author Organization [facility] Address [address] [place] [address] Care Team Providers Care Gifted Program Teacher Name Role Phone Collin Aburto MD Primary Care Provider [phone] Encounter Details Date Type Department Care Team (Late st Contact Info) Description 04/25/2011 Orders Only [facility] Memory Program - Medical Office Building [address] [place], [place] [id number] Chester Myers MD [address] [facility] Medical Office Building, [address] [place] [phone] Memory loss (Primary Dx) Social History Tobacco Use Types Packs/Day Years Used Date Smoking Tobacco: Never Assessed Sex and Gender Information Value Date Recorded Sex Assigned at Not on file Gender Identity Not on file Sexual Orientation Not on file documented as of this encounter Plan of Treatment Not on file documented as of this encounter Results * SYPHILIS SEROLOGY (07/15/2011 10:03 EST) Pathologist [facility] Syphilis Serology Interpretation: Nonreactive [facility] Comment:Reference Range: Non reactive Blood specimen (specimen) 07/15/2011 10:03 EST 07/15/2011 10:34 EST Chester Myers MD IMMUNOLOGY AND S EROLOGY ORDERABLES [facility] [address] [place] [address] * VITAMIN B12 (07/15/2011 10:03 EST) Vitamin B-12 500 211 - 911 pg/ml [facility] Blood specimen (specimen) 07/15/2011 10:03 EST 07/15/2011 10:34 EST Chester Myers MD CHEMISTRY & BLOO D GAS ORDERABLES Performing Organization Address [facility] Co de Phone Number [facility] [address] [place] [address] * FOLATE (07/15/2011 10:03 EST) Folate 18.3 ng/mL [facility] Comment: Deficient: ??Less than 3.4 ng/mL Indeterminate: ??3.4-5.4 ng/mL Normal: ??Greater than 5.4 ng/mL Blood specimen (specimen) 07/15/2011 10:03 EST 07/15/2011 10:34 EST Chester Myers MD CHEMISTRY & BLOO D GAS ORDERABLES Performing Organization Address [facility] de Phone Number [facility] [address] [place] [address] * (ABNORMAL) COMPREHENSIVE METABOLIC PANEL (CMP) (07/15/2011 10:03 EST) Potassium 5.1(H) 3.5 - 5.0 mEq/L [facility] Sodium 142 136 - 145 mEq/L [facility] Chloride 106 96 - 110 mEq/L [facility] CO2 27 24 - 32 mEq/L [facility] Total Alkaline Phosphatase 105 38 - 126 U/L [facility] Bilirubin, Total <0.5 0.2 - 1.3 mg/dl [facility] AST 27 15 - 46 U/L [facility] ALT 39 21 - 72 U/L [facility] Albumin 4.3 3.4 - 4.9 g/dl [facility] Total Protein 7.0 6.5 - 8.3 g/dl [facility] Creatinine 0.95 0.7 - 1.5 mg/dl [facility] GFR, Calculated >60 >60 ml/min/1.7 3m2 [facility] BUN 15 10 - 26 mg/dl [facility] Calcium 9.5 8.5 - 10.5 mg/dl [facility] Calculated Calcium 9.6 8.5 - 10.5 mg/dl [facility] Glucose, Serum 109(H) 70 - 100 mg/dl [facility] Fasting? Unknown [facility] Blood specimen (specimen) 07/15/2011 10:03 EST 07/15/2011 10:34 EST Chester Myers MD CHEMISTRY & BLOO D GAS ORDERABLES Performing Organization Address City/State/[facility] Co de Phone Number [facility] [address] [place] [address] documented in this encounter Visit Diagnoses Diagnosis Memory loss- Primary documented in this encounter Care Teams Gifted Program Teacher Relationship Specialty Start Date End Date Collin Aburto MD [address] [place] [phone] PCP - General 01/28/11 documented as of this encounter
--- OUTSIDE RECORDS SUMMARY | 2024-03-31 04:08 | XMS_ITS | Encounter Summary ---
Author Organization [facility] Address [address] [place] [address] Care Team Providers Care Train Attendant Name Role Phone Shara LEWIS MD, Ben Webb Primary Care Provider + Reason for Referral * Imaging (Routine) - Closed Specialty Diagnoses / Procedures Referred By Tram griffin Referred To Contact Diagnoses White matter disease Procedures MRI - BRAIN WITHOUT AND WITH IV CONTRAST Bernie England MD [address] [facility] [address] [place] [address] Referral ID Status Reason Start Date Expiration Date Visits Re quested Visits Authorized [id number] Closed 10/07/2022 1 1 Encounter Details Date Type Department Care Team (Late st Contact Info) Description 02/04/2022 3:00 PM HST Telehealth [facility] [address] [place], [place] [id number] Bernie England MD [address] [place], [place] [id number] White matter disease (Primary Dx) Discharge Disposition: D/C Home, Self Care Social [...] suspected to have Coronavirus/COVID-19? Unable to assess 02/04/2022 2:38 PM HST documented as of this encounter Last Filed Vital Signs Vital Sign Reading Time Taken Comments Blood Pressure - - Pulse - - Temperature - - Respiratory Rate - - Oxygen Saturation - - Inhaled Oxygen Concentration - - Weight 70.8 kg (156 lb) 02/04/2022 2:38 PM HST Height 182.9 cm (6') 02/04/2022 2:38 PM HST Body Mass Index 21.16 02/04/2022 2:38 PM HST documented in this encounter Patient Instructions * Patient Instructions* Bernie England MD - 02/04/2022 2:42 PM HST MRI brain October 2022. See me after MRI brain, ~9 months or sooner as needed. 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 Medication Side Effects/Reactions If you are concerned that you may be having an allergic reaction or if you are having significant side effects, please call the office as soon as possible to let us know that you are having problems with the medication. For Next Visit: Please remember to bring your medication bottles or an up-to-date medication list to your next visit. If you have any questions or if you need to reschedule your appointment, please call our office at [phone] 24 Hour Cancellation & ? No Show? Policy Our goal is to provide quality individualized medical care in a timely manner. Late cancellations and No Shows (includes arriving more than 15 minutes late) create inconvenience and prevent scheduling of other patients who need access to medical care in a timely manner. ???No-show?? appointments have a significant negative impact on our practice and the healthcare weprovide to our patients. We understand situations arise when you may need to cancel your appointment and we appreciate advance notice when that happens. This helps us be respectful of other patients needs and enables us to give the appointment time to another patient who needs to see us. If you cannot make it to your appointment, please call our friendly staff at least 24 hours in advance at [phone]. The staff or management would be happy to assist you in canceling or rescheduling your medical appointment. ALL APPOINTMENTS MUST BE CONFIRMED WITH OUR OFFICE. Failure to confirm your appointment will result in a canceled appointment without notice. Thank you for trusting your medical care to [facility]. We strive to best serve the needs of all of our patients. Thank you for giving us the privilege of caring for you today! documented in this encounter Progress Notes * Bernie England MD - 02/04/2022 3:00 PM HST [facility] Telehealth Home Visit I performed a telemedicine visit using real-time, synchronous, two-way audiovisual teleconferencingtechnology. I personally interviewed and examined the patient and determined the plan of care. Originating Site: home visit Receiving Site: [facility] Patient: Jens Ayala : 1945 Date of service: 02/03/2022 Neurologic Summary: Jens Ayala is a 76 year old male with a history of prostate enlargement c/b urinary retention, sleep disorder presenting for evaluation of demyelinating disease. A few months ago, patient developed numbness in his right shoulder. He underwent MRI brain which demonstrated T2/Flair lesions supratentorially concerning for demyelinating disease. He has longstanding history of restless leg syndrome which he describes as an urge to move his legs, particularly at night when trying to sleep. These symptoms have improved over the last few years. In terms of urologic history, patient diagnosed with enlarged prostate complicated by urinary retention. He describes difficulty with initiation of urination. He has tried intermittent self-catheterization and paulson catheters for urinary retention. He has presented to [place] emergency department multiple times in the last few weeks due to ongoing symptoms. He is followed by urology with plans for prostate surgery once he has completed neurologic workup. There is concern for prostate cancer given elevated PSA. Interval history: Patient last seen 01/15/2022. He underwent prostate surgery and bladder symptoms are significantly improved; he states he feels better than he has in months. He continues to have occasional urgency but otherwise feels well. He is walking at least a mile a day; today he walked three miles. He continues to have numbness on his right shoulder. Neuro Symptoms: Motor: denies weakness Sensory: +R shoulder numbness Gait: no issues with walking, balance; denies falls Vision: denies monocular vision loss, pain with eye movements, diplopia Uhthoff: denies Lhermitte: denies Energy: generally very high, no issue Mood: somewhat overwhelmed with current health issues Sleep: uses lunesta and amitriptyline for sleep; previously diagnosed with sleep disorder Exercise: stays active, previously very active with walking/running but limited with knee pain currently Bladder: as above Bowel: chronic constipation Cognition: mild forgetfulness, independent in ADLs and iADLs including grocery shopping, paying bills Review of systems: A 12-point review of systems was reviewed with patient and is negative other than mentioned above. Past Medical History: Active Ambulatory Problems Diagnosis Date Noted ??? No Active Ambulatory Problems Resolved Ambulatory Problems Diagnosis Date Noted ??? No Resolved Ambulatory Problems Past Medical History: Diagnosis Date ??? Cancer (CMS/HCC) ??? Kidney disease ??? Pure hypercholesterolemia ??? Restless leg syndrome ??? Sleep disorder Past Surgical History: Procedure Laterality Date ??? HX KIDNEY/BLADDER/PROSTATE SURGERY prostate surgery ??? HX ORTHOPEDIC SURGERY Right 2009 [facility] EL[facility]OW Family History: Sister - MS Social History: reports that he has never smoked. He has never used smokeless tobacco. He reports that he does not drink alcohol and does not use drugs. -Lives in [place] with , retired, originally from [place], moved to [place] in 1980s Allergies: No Known Allergies Medications: Prior to Admission medications Medication Sig Start Date End Date Taking? Authorizing Provider nitrofurantoin monohydrate/nitrofurantoin macrocrystals (Macrobid) 100 mg Oral Capsule Take 1 Capsule by mouth 2 times a day with meals for 14 days. 12/09/21 12/23/21 Marlen Pruitt MD HYDROcodone/acetaminophen 5-325 mg Oral Tablet Take 1 Tablet by mouth every 6 hours as needed for Pain. Pt Reported, Med ALPRAZolam 0.5 mg Oral Tablet Take 0.5 mg by mouth 2 times a day. Pt Reported, Med escitalopram oxalate 10 mg Oral Tablet Take 10 mg by mouth every morning. Pt Reported, Med eszopiclone (LUNESTA) 3 mg Oral Tablet Take 3 mg by mouth at bedtime as needed for Sleep. Medhistory, Provider ATORVASTATIN CALCIUM (ATORVASTATIN PO) Take by mouth. Pt Reported, Med tamsulosin 0.4 mg Oral Capsule, Sustained Release 24HR Take 0.4 mg by mouth at bedtime. Pt Reported, Med amitriptyline 100 mg Oral Tablet Take 100 mg by mouth at bedtime. Pt Reported, Med Physical Exam: Mental status: Awake, alert, oriented to person, place, time, situation. Speech spontaneous and fluent. Intact comprehension, adequate fund of knowledge. Cranial Nerves: EOMI, symmetric facies at rest and with excursion with intact smile, hearing grossly intact Motor: moving all four extremities equally, antigravity throughout. Gait/station: sitting in chair Imaging and Neurodiagnostics: MRI brain wo contrast 10/28/2021: There are multiple T2 hyperintensities throughout the supratentorial white matter. Many of the periventricular lesions demonstrate a perivenular distribution. There are no callosal lesions or infratentorial lesions. MRI C/T spine w/wo contrast 12/19/2021: no cord lesion or enhancement CSF 01/09/2022: WBC 2 (80% lymph, 10% neutrophils, 10% monocytes) RBC 207 -> 7 Glucose 59 IgG index normal, 0.54 OCB matched in serum and CSF Serum 11/2021: JUJU, SS-A/B, RPR, HIV, TSH, B12, folate, MMA negative/wnl SPEP without monoclonal antibody Assessment and Plan: Jens Ayala is a 76 year old male with a history of prostate enlargement c/b urinary retention, sleep disorder presenting for evaluation of demyelinating disease. Exam is benign via video visit. MRI brain with supratentorial white matter disease, some lesions appear demyelinating including lesions periventricularly; no infratentorial lesions, spinal lesions or T1 hypointensities. Clinical history of right shoulder hypoesthesia could be consistent with demyelinating event; risk factors for demyelinating disease including family history of MS in first degree relative. However, CSF without elevated IgG index or CSF specific oligoclonal bands. Matched bands in serum and CSF is not a clear marker of neurologic autoimmunity and rather is a nonspecific finding which is sometimes due to underlying systemic autoimmunity. Unique oligoclonal bands support intrathecal immunoglobulin synthesis whereas matched bands are not due to intrathecal synthesis of antibodies. Patient currently does not meet criteria for multiple sclerosis given lack of dissemination in space in setting of periventricular lesions only. Discussed ancillary workup with visual evoked potential to further clarify diagnosis, however this would require travel [facility]. We discussed implicationsof VEP and future MRI surveillance, and if diagnosis ultimately is multiple sclerosis in future, given overall mild symptomatology at advanced age would need further risk/benefit discussion on appropriateness of initiating disease modifying therapy at this stage. We discussed if diagnosis ultimately MS, there is limited data on initiation of DMT in patient's age range given that most randomized co ntrolled trials enrolled patients younger than 55 years old therefore safety and efficacy data for patients older than 55 is limited. In setting of mild neuerologic symptoms would favor continued surveillance off immunotherapy. In this setting, patient defers workup including VEP at this time. # White matter lesions: - MRI brain w/wo contrast 10/2022 (one year from prior imaging) to evaluate for any radiographic evolution of white matter lesions or enhancement to suggest transition to MS # Restless leg syndrome: ferritin level normal RTC ~9 months after MRI, or sooner as needed. The patient was referred to me for multiple sclerosis. I have subspecialty training in multiple sclerosis and neuroimmunology. The total amount of minutes spent on care of this patient on the day of the visit is 30 including: review of patient's chart, discussion with patient and/or family members and/or other healthcare team members, review of data, coordination of care and time spent completing charting/documentation. Bernie England MD [facility] Multiple Sclerosis and Neuroimmunology documented in this encounter Plan of Treatment Scheduled Orders Name Type Priority Associated Diagnoses Orde r Schedule MRI - BRAIN WITHOUT AND WITH IV CONTRAST Imaging Routine White matter disease Expected: 10/07/2022, Expires: 02/04/2023 documented as of this encounter Visit Diagnoses Diagnosis White matter disease- Primary Other conditions of brain documented in this encounter Care Teams Train Attendant Relationship Specialty Start Date End Date Ben Olmedo III, MD [address] [place] [address] PCP - General Family Medicine 10/28/21 documented as of this encounter
--- OUTSIDE RECORDS SUMMARY | 2024-03-31 04:08 | XMS_ITS | Encounter Summary ---
Author Organization [facility] Address [address] [place] [address] Care Team Providers Care Classification Officer Name Role Phone Collin Aburto MD Primary Care Provider [phone] Reason for Visit * Reason Comments Memory Loss Encounter Details Date Type Department Care Team (Late st Contact Info) Description 09/12/2011 9:30 EST [facility] Visit [facility] - Medical Office Building [address] [place] [address] [id number] Chester Myers MD [address] [place] [address] Medical Office Building, [address] [place] [address] MCI (mild cognitive impairment) (Primary [...] as of this encounter Progress Notes * Chester Myers MD - 09/15/2011 1031 EST NEUROLOGY HE[facility] CARE SERVICE [facility] Medical Office Building [address] [place] [address], [address] [address] PROGRESS/FOLLOWUP NOTE - 09/12/2011 PROBLEM: Mild cognitive impairment. SUBJECTIVE: Mr Ayala [facility] the [facility] today accompanied by his Karlee Chinfor a reevaluation. I last saw Mr Ayala about 2 months ago on 07/22/2011. At that time, a diagnosis of mild cognitive impairment was established, but confounded by the fact that Mr Ayala continued to take fairly large amounts of amitriptyline on a daily basis. The plan that was conceived at that time was that Mr Ayala would attempt to reduce his use of amitriptyline and we would go forward from there. Mr Ayala today indicates that he is feeling physically better and has successfully reducedhis daily amitriptyline dose to 100 mg. There was one evening last week when he took 125 mg but, otherwise, he believes that he has been consistently at the 100 mg dose. He indicates that symptoms orside effects of dry mouth and constipation have been abated by the lower dose, and cognitively he is stable. MEDICATIONS: I reviewed medications and these continue as: Amitriptyline 100 mg. Methylphenidate 10 mg. Atorvastatin 10 Lunesta 3 mg. P.R.N. Oxycodone. Since I last saw Mr Ayala, his primary care physician has started an antidepressant, but it is notclear what that drug is. Mr Ayala will let me know the name and dose by E-mail. Mr Ayala's , Karlee, agrees that her has been able to reduce the dose of amitriptyline and also agrees that he seems physically better. It is unclear that there has been any change in cognition at this point. OBJECTIVE: No new information. ASSESSMENT: Mr Ayala has successfully reduced the dose of amitriptyline to 100 mg daily. Whether he will be able to reduce the dose further is unclear, but at the moment I think things are quite stable. It will be interesting to see how Mr Ayala performs on neuropsychological testing when we reevaluate the situation in the spring or early summer. For the moment, I think there should be no additi onal changes in medication except for Mr Ayala to continue to attempt to reduce the dose of amitriptyline. PLAN: 1. I met with Mr Ayala and his for 26 minutes of [id number] conversation and discussion, with more than 20 minutes devoted to counseling and coordination of care. 2. I made no additional changes in medication. 3. Follow up in December/January 2012 for a reevaluation with testing. Electronically Signed by Chester Myers MD 09/15/2011 12:44 Chester Myers MD Freight Car Cleaner - Chester Myers MD - AN Job ID: SM Doc ID: [id number] Ext Doc ID: [id number] cc: Collin Aburto MD * Chester Myers MD - 09/12/2011 0924 EST This office note has been dictated. documented in this encounter Plan of Treatment Not on file documented as of this encounter Visit Diagnoses Diagnosis MCI (mild cognitive impairment)- Primary Mild cognitive impairment, so stated documented in this encounter Discontinued Medications Medication Sig Discontinue Reason Start Date End Da te amitriptyline (ELAVIL) 150 mg tablet Take 150 mg by mouth at bedtime. Dose adjustment 09/12/2011 amitriptyline (ELAVIL) 25 mg tablet Take 1 Tab by mouth at bedtime. As directed. Dose adjustment 07/22/2011 09/12/2011 methylphenidate (RITALIN) 5 mg tablet Take 5 mg by mouth daily. Three tablets in the am. Dose adjustment 09/12/2011 documented as of this encounter Historical Medications * This list may reflect changes made after this encounter. Medication Sig Dispensed Refills Start Date End Date methylphenidate (RITALIN) 10 mg tablet Take 10 mg by mouth daily. amitriptyline (ELAVIL) 100 mg tablet Take 125 mg by mouth at bedtime. added in this encounter Care Teams Classification Officer Relationship Specialty Start Date End Date Collin Aburto MD [address] [place] [id number] PCP - General 01/28/11 documented as of this encounter
--- OUTSIDE RECORDS SUMMARY | 2024-03-31 04:08 | XMS_ITS | Encounter Summary ---
Author Organization [facility] Address [address] [place] [address] Care Team Providers Care Digital Media Producer Name Role Phone Collin Aburto MD Primary Care Provider [phone] Reason for Visit * Reason Comments Memory Loss Encounter Details Date Type Department Care Team (Late st Contact Info) Description 07/15/2011 8:30 EST Office Visit [facility] - Medical Office Building [address] [place] [id number] Flor Barragan, PhD [address] [place] [address] Medical Office Building, [address] [place] [address] Memory loss Social History Tobacco Use Types Packs/Day Years Used Date Smoking Tobacco: Never Assessed Sex and Gender Information Value Date Recorded Sex Assigned at Not on file Gender Identity Not on file Sexual Orientation Not on file documented as of this encounter Progress Notes * Flor Barragan, PhD - 07/15/2011 1225 EST This office note has been dictated. 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 Other interests and activities include outdoor sports, music and gardening. Mr Ayala lives in [facility] with his partner, who was his second . They , but then got back together without remarrying. Hehas two children by his first marriage, which ended in divorce. Psychiatric history is positive fordepression; Mr Ayala had counseling for this on and off between 1983 and 2002. He had been on amitr iptyline 250 mg for many years, but has recently reduced that to 150 mg. HISTORY OF PRESENT ILLNESS: Mr Ayala says [...] a piece of paper from man in town who has done work on their home [...] tedious. The patient is independent for self-care. BEHAVIORAL OBSERVATIONS AND MENTAL STATUS EXAMINATION: Mr Ayala is a casually dressed, adequately groomed man who is alert and appropriately interactive. His general presentation, however, is noticeably vague. Mood is described as somewhat depressed. He believes that he has seasonal affective disorder and that this was particularly severe last winter. He has lifelong difficulty falling asleep. Appetite, energy and interest in activities are intact. He has no wishes for and there is no evidence of delusions or hallucinations. NEUROPSYCHOLOGICAL EVALUATION: ORIENTATION AND ATTENTION: Mr Ayala is grossly oriented x3. Digit span is 5 forward, 4 backward. He can do 3 of 5 serial 7s; he obtains only 2 points in spelling world backward. Simple mental speed is mildly impaired on other testing. MEMORY: The patient recalls 2 of 3 words after a brief distraction. Immediate recall of short stories falls at the 50th percentile, with delayed recall at the 2nd percentile. There is no further improvement with the recognition Paradigm. Immediate visuospatial recall falls at the 1st percentile, with delayed recall at the 25th percentile. LANGUAGE: Spontaneous speech, auditory comprehension, repetition and confrontation naming are within normal limits. Verbal fluency is intact. VISUOSPATIAL FUNCTIONS: Block design is within normal limits. There is minimal to no constructionaldisturbance in copying geometric figures. He has trouble maintaining numbers inside the iliamna configuration while numbering the face of a clock. REASONING: The patient responds abstractly to 2 of 3 similarities. Practical reasoning is adequate,but not exceptional. He does recognize proverbs as abstract statements. SUMMARY: Mr Lockwood scores 26 on the MMSE and 8 on the Alzheimer's Disease Assessment Scale. He clearly meets the criteria for mild cognitive impairment. Early treatment with a cholinesterase inhibitor would be a consideration. Total time 3 hours. Forty-six [place] [id number] and included testing that was separate from the testing done by the roof service technician Electronically Signed by Flor Barragan, Ph.D. 10/13/2011 14:14 Flor Barragan, Ph.D. Licensed Psychologist-Doctorate - Flor Barragan, Ph.D. - JENNIFER Job ID: SM Doc ID: [id number] Ext Doc ID: [id number] cc: documented in this encounter Care Teams Digital Media Producer Relationship Specialty Start Date End Date Collin Aburto MD [address] [place] [address] PCP - General 01/28/11 documented as of this encounter
--- OUTSIDE RECORDS SUMMARY | 2024-03-31 04:08 | XMS_ITS | Encounter Summary ---
Author Organization [facility] Address [address] [place] [address] Care Team Providers Care [facility] Name Role Phone Shara LEWIS MD, Ben Webb Primary Care Provider + Reason for Referral * Imaging (Routine) - Closed Specialty Diagnoses / Procedures Referred By Contac t Referred To Contact Diagnoses Bilateral plantar fasciitis Procedures XRAY - FOOT 3V (AP, LATERAL & OBLIQUE) Ben Brown III, MD [address] [place] [phone] Referral ID Status Reason Start Date Expiration Date Visits Re quested Visits Authorized [id number] Closed 06/05/2022 1 1 Reason for Visit * Imaging (Routine) - Closed Specialty Diagnoses / Procedures Referred By Contac t Referred To Contact Diagnoses Bilateral plantar fasciitis Procedures XRAY - FOOT 3V (AP, LATERAL & OBLIQUE) Ben Brown III, MD [address] [place] [phone] Referral ID Status Reason Start Date Expiration Date Visits Re quested Visits Authorized [id number] Closed 06/05/2022 1 1 Encounter Details Date Type Department Care Team (Latest Contact Info) Description 06/05/2022 11:00 AM HST - 06/05/2022 11:59 PM HST Hospital Encounter [facility] Imaging Services [id number] [facility] [place] [address] Discharge Disposition: D/C Home, Self Care Social [...] - Moderate. Do not drive or operate [email or web address] 6 Tablet 12/15/2021 eszopiclone (LUNESTA) 3 mg [...] 3V (AP, LATERAL & OBLIQUE) Routine 06/05/2022 11:08 AM HST Bilateral plantar fasciitis documented in this encounter Results * XRAY - FOOT 3V (AP, LATERAL & OBLIQUE) (06/05/2022 11:08 AM HST) Anatomical Region Laterality Modality Foot Computed Radiogr aphy 06/05/2022 11:5 6 AM HST Impressions 06/05/2022 11:57 AM HST IMPRESSION: MILD DEGENERATIVE CHANGES 1ST METATARSAL PHALANGEAL JOINT. ELECTRONICALLY SIGNED BY: ??MARTIN SMITH WORKSTATION ID: [id number] Narrative 06/05/2022 11:57 AM HST Result Status: Finalized Authenticating Radiologist: Martin mSith Requestor: BEN BROWN III Reason for Exam: M72.2 EXAM: XRAY - FOOT 3V (AP, LATERAL AND OBLIQUE) ??RT HISTORY: M72.2 COMPARISON: None FINDINGS: 3 views of the right foot. The bones are well-mineralized. Cortical margins intact. No bony erosions. Mild degenerative narrowing of the 1st metatarsal phalangeal joint. No other significant findings. ?? Procedure Note Martin Smith MD - 06/05/2022 Result Status: Finalized Authenticating Radiologist: Martin Smith Requestor: BEN BROWN III Reason for Exam: M72.2 EXAM: XRAY - FOOT 3V (AP, LATERAL AND OBLIQUE) RT HISTORY: M72.2 COMPARISON: None FINDINGS: 3 views of the right foot. The bones are well-mineralized. Cortical margins intact. No bony erosions.Mild degenerative narrowing of the 1st metatarsal phalangeal joint. No other significantfindings. IMPRESSION: IMPRESSION: MILD DEGENERATIVE CHANGES 1ST METATARSAL PHALANGEAL JOINT. ELECTRONICALLY SIGNED BY: MARTIN SMITH WORKSTATION ID: [id number] Ben Brown III, MD XRAY-ORDERABLE documented in this encounter Visit Diagnoses Diagnosis Bilateral plantar fasciitis Plantar fascial fibromatosis documented in this encounter Care Teams [facility] Relationship Specialty Start Date End Date Ben Brown III, MD [address] [place] [phone] PCP - General Family Medicine 10/28/21 documented as of this encounter
--- OUTSIDE RECORDS SUMMARY | 2024-03-31 04:08 | XMS_ITS | Clinical Summary ---
Author Organization [facility] Address [address] [place] [address] Care Team Providers Care Freight Engineer Name Role Phone Shara LEWIS MD, Ben Webb Primary Care Provider + Allergies No known active allergies Medications Medication Sig Dispensed Refills Start Date End Date Status amitriptyline 100 mg Oral Tablet Take 100 mg by mouth at bedtime. Active ATORVASTATIN CALCIUM (ATORVASTATIN PO) Take by mouth. Act ally eszopiclone (LUNESTA) 3 mg Oral Tablet Take 3 mg by mouth at bedtime as needed for Sleep. Active HYDROcodone/acetamin ophen 5-325 mg Oral Tablet Take 1 Tablet by mouth every 6 hours as needed for Pain - Moderate. Do not drive or operate [employer] 6 Tablet 12/15/2021 Active linaCLOtide (Linzess) 145 mcg Oral Capsule Take 145 mcg by mouth before breakfast daily. Active clonazePAM (KlonoPIN) 0.5 mg Oral Tablet Take 1 Tablet by mouth 2 times a day. Take 1 tab in the AM and 10 hours later take 2 tabs by mouth 30 Tablet 12/16/2022 Active venlafaxine XR 75 mg Oral Capsule, Sustained Release 24HR Take 75 mg by mouth daily with breakfast. Active predniSONE 10 mg Oral Tablet 1 Tablet 2 times a day. 60 Tablet 1 01/05/2023 Active Active Problems No known active problems Family History Medical History Relation Name Comments Heart Disease Father Kidney Disease Father Cancer Maternal Grandfather Muscular dystrophy Mother Cancer Sister 3 Relation Name Status Comments Father Maternal Grandfather Maternal Grandmother Mother Paternal Grandfather Paternal Grandmother Sister 1 Alive Sister 2 Alive Sister 3 Social History Tobacco Use Types Packs/Day Years Used Date Smoking Tobacco: Never Smokeless Tobacco: Never Tobacco Cessation:Counseling Given: No Alcohol Use Standard Drinks/Week Comments No 0 (1 standard drink = 0.6 oz pur e alcohol) [facility] Housing Stability Answer Date Recor ded Housing Stability Not on file 08/18/2023 Unable to Pay for Housing in the Last Year Not o n file 08/18/2023 Number of Places Lived in the Last Year Not on f ile 08/18/2023 Unstable Housing in the Last Year Not on file 08/18/2023 [facility] Food Insecurity Answer Date Recorde d Within [...] to get more. Not on file 12/16/2022 [facility] Food Insecurity Answer Date Recorde d [...] file Not on file Not on file Last Filed Vital Signs Vital Sign Reading Time Taken Comments Blood Pressure 146/77 01/05/2023 2:59 PM HST Pulse 70 01/05/2023 2:59 PM HST Temperature 36.8 ??C (98.2 ??F) 01/05/2023 2:59 PM HS T Respiratory Rate 18 01/05/2023 2:59 PM HST Oxygen Saturation 97% 01/05/2023 2:59 PM HST Inhaled Oxygen Concentration - - Weight 70.4 kg (155 lb 3.2 oz) 01/05/2023 2:59 P M HST Height 182.9 cm (6' 0.01) 01/05/2023 2:59 PM HS T Body Mass Index 21.04 01/05/2023 2:59 PM HST Plan of Treatment Health Maintenance Due Date Last Done Comments WELLNESS: DEPRESSION SCREENING 1964 DTaP,Tdap,and Td Vaccines (1 - Tdap) 1965 Zoster Vaccines (1 of 2) 1996 Pneumococcal Vaccine: 65+ Years (1 of 1 - PCV) 2011 COVID-19 Vaccine (1 - 2022- season) 2023 Advanced Care Planning Discussion 08/31/2023 MEDICARE AWV CALENDAR YEAR 2023 Influenza Vaccine (#1) 2024 CANCER SCREENING: PROSTATE ANNUAL Discontinued 12/09/2021, 11/01/2021 HIB Vaccine Aged Out No longer eligi ble based on patient's age to complete this topic HPV Vaccines Aged Out No longer eligi ble based on patient's age to complete this topic Hepatitis A Vaccines Aged Out No long er eligible based on patient's age to complete this topic Hepatitis B Vaccines Aged Out No long er eligible based on patient's age to complete this topic IPV Vaccines Aged Out No longer eligi ble based on patient's age to complete this topic Rotavirus Vaccines Aged Out No longer eligible based on patient's age to complete this topic Procedures Procedure Name Priority Date/Time Associated Diagnosis Comments PROSTATE SPECIFIC AG (PSA), TOTAL STAT 12/09/2021 11:55 AM HST from Last 3 Months or Most Recently Relevant to Health Maintenance Results * (ABNORMAL) PSA Total (Prostate Specific Ag (PSA), Total) (12/09/2021 11:55 AM HST) PSA, Total 23.50(H) 0.00 - 6.90 ng/mL [facility] Comment: Age Group ? Age Related Reference Range 40 - 49 years ?0.00 - 2.40 ng/mL 50 - 59 ?0.00 - 3.80 60 - 69 ?0.00 - 5.60 ?>69 ?0.00 - 6.90 PSA,TOTAL result was obtained with the Elecsys TPSA assay. Results from assays of other manufacturers cannot be used interchangeably. 12/09/2021 11:5 5 AM HST 12/09/2021 12:21 PM HST Marlen Pruitt MD SPECIAL CHEMISTRY-OR [facility] [phone] [facility] [place] [address] [facility] [phone] [place] [address] from Last 3 Months or Most Recently Relevant to Health Maintenance Care Teams Freight Engineer Relationship Specialty Start Date End Date Ben Olmedo III, MD [address] [place] [phone] PCP - General Family Medicine 10/28/21
--- OUTSIDE RECORDS SUMMARY | 2024-03-31 04:08 | XMS_ITS | Referral Summary ---
Author Organization [facility] Address [address] [place] [address] Care Team Providers Care Wetlands Conservation Laborer Name Role Phone Collin Aburto MD Primary Care Provider [phone] Encounters Date Type Department Care Team Description 02/05/2024 10:00 EDT Office Visit [facility] [address] [place] [address] Nomi Nix, NATALYA Plantar fasciitis, right (Primary Dx); Neuropathy; Onychomycosis 01/28/2024 Telephone [facility] [address] [place] [address] Nomi Nix, NATALYA Other from Last 3 Months Allergies Active Allergy Reactions Criticality Noted Date [...] hyperplasia Restless legs syndrome Gastroesophageal reflux disease Social History Tobacco Use Types Packs/Day Years [...] Mass Index - - Plan of Treatment Not on file Care Teams Wetlands Conservation Laborer Relationship Specialty Start Date End Date Collin Aburto MD [address] [place] [phone] PCP - General 01/28/11
--- OUTSIDE RECORDS SUMMARY | 2024-03-31 04:08 | XMS_ITS | Encounter Summary ---
Author Organization [facility] Address [address] [place] [address] Care Team Providers Care Criminal Intelligence Specialist Name Role Phone Shara LEWIS MD, Ben Webb Primary Care Provider + Reason for Visit * Reason Comments Knee Pain f/u LEFT knee pain Encounter Details Date Type Department Care Team (Late st Contact Info) Description 01/05/2023 3:00 PM HST Office Visit [facility] [phone] [facility] [address] [place] [address] Zbigniew Saavedra MD [phone] [facility] [address] [place] [phone] Chronic pain of left knee (Primary Dx); Chondromalacia, patella, left; Hamstring tendinitis of left thigh Discharge Disposition: D/C Home, Self Care Social History Tobacco Use Types Packs/Day Years Used Date Smoking Tobacco: Never Smokeless Tobacco: Never Alcohol Use Standard Drinks/Week Comments No 0 (1 standard drink = 0.6 oz pur e alcohol) [facility] Food Insecurity Answer Date Recorde d [...] to get more. Not on file 12/16/2022 [facility] Food Insecurity Answer Date Recorde d [...] suspected to have Coronavirus/COVID-19? No / Unsure 01/05/2023 2:48 PM HST documented as of this encounter [...] Mass Index 21.04 01/05/2023 2:59 PM HST documented in this encounter Progress Notes * Zbigniew Saavedra MD - 01/05/2023 3:00 PM HST CLINIC NOTE Chief Complaint: Chief Complaint Patient presents with Knee Pain f/u LEFT knee pain Subjective: Jens Ayala is a 77 year old male who had concerns including Knee Pain (f/u LEFT knee pain/).. Patient presents for ongoing care of his left knee. A lot is transpired since his last evaluation. In August his after an illness. While caring for he noted with a relative rest his knee felt fairly good. Since her passing he has been trying to increase activities including some walking but not running at the track. This is going fairly well up to a mile. He is planning to move back to the [facility] to be closer to family. With his moving activities he has noted an increase in pain largely in the posterior knee. He has not noted a focal swelling or Barker's cyst. He has not had swelling of the joint. No pain focal to the medial or lateral joint line. He has not had any isolatedinjury or isolated overuse events. No redness warmth or acute findings. No mechanical symptoms or instability. He has no neurologic or radicular developments. He presents today requesting treatment prior to his departure from the [place]. He does not have a treating physician back at the [facility]. No Known Allergies Past Medical History: Diagnosis [...] Vaping Use Vaping status: Never Used Substance and Sexual Activity Alcohol use: No Drug use: No Social Determinants of Health Food Insecurity: No Food Insecurity (12/16/2022) Hunger Vital Sign Worried About Running Out of Food in the Last Year: Never true Ran Out of Food in the Last Year: Never true OB History No obstetric history on file. Outpatient Encounter Medications as of 01/05/2023 Medication Sig Dispense Refill venlafaxine XR 75 mg Oral Capsule, Sustained Release 24HR Take 75 mg by mouth daily with breakfast. predniSONE 10 mg Oral Tablet 1 Tablet 2 times a day. 60 Tablet 1 clonazePAM (KlonoPIN) 0.5 mg Oral Tablet Take 1 Tablet by mouth 2 times a day. Take 1 tab in the AMand 10 hours later take 2 tabs by mouth 30 Tablet 0 linaCLOtide (Linzess) 145 mcg Oral Capsule Take 145 mcg by mouth before breakfast daily. HYDROcodone/acetaminophen 5-325 mg Oral Tablet Take 1 Tablet by mouth every 6 hours as needed for Pain - Moderate. Do not drive or operate machinary 6 Tablet 0 eszopiclone (LUNESTA) 3 mg Oral Tablet Take 3 mg by mouth at bedtime as needed for Sleep. ATORVASTATIN CALCIUM (ATORVASTATIN PO) Take by mouth. amitriptyline 100 mg Oral Tablet Take 100 mg by mouth at bedtime. [DISCONTINUED] predniSONE 10 mg Oral Tablet Take 1 Tablet by mouth as directed. TAKE 3 TABS (30 MG)DAILY X 4 DAYS THEN 2 TABS (20 MG) DAILY X 4 DAYS THEN 1 TAB (10 MG) DAILY X 4 DAYS #24 (Patient not taking: Reported on 07/09/2022) 24 Tablet 1 [DISCONTINUED] ALPRAZolam 0.5 mg Oral Tablet Take 0.5 mg by mouth 2 times a day. [DISCONTINUED] escitalopram oxalate 10 mg Oral Tablet Take 10 mg by mouth every morning. No facility-administered encounter medications on file as of 01/05/2023. Review of Systems: Patient's review of systems was updated. There have been no significant changes including any significant hospitalizations or illnesses. No new significant symptomatology. Pertinent negatives are also included above. No constitutional type symptoms. Otherwise review of systems unremarkable for any changes. Objective: BP 146/77 (Taken On: Lt upper arm, Patient Position: Sitting, Cuff size: regular) Pulse 70 Temp36.8 ??C (98.2 ??F) (Infrared) Resp 18 Ht 182.9 cm (6' 0.01) Wt 70.4 kg (155 lb 3.2 oz) SpO2 97% BMI 21.04 kg/m?? Physical Examination: (If abnormal, please describe) GENERAL: Patient is alert and does not appear in any acute or significant distress. SKIN: Intact and benign. VASCULAR: Remains within normal limits. NEURO: Gross motor and sensory stable. ORTHO: Exam shows no effusion or soft tissue swelling. There is no focal medial or lateral joint line tenderness but there is diffuse tenderness in the popliteal area including the hamstring tendons.I cannot appreciate a Barker's cyst. He has no patellar apprehension. His gait is relatively normal. Testing: No further testing was initiated or performed. Assessment: 1. Chronic pain of left knee 2. Chondromalacia, patella, left 3. Hamstring tendinitis of left thigh Chronic left knee pain felt to be due to chondromalacia patella and hamstring tendinitis. Plan: On today's evaluation we discussed further options. Given the lack of effusion or obvious intra-articular findings we agreed to hold off on a cortisone injection. He is requesting custom prednisone as he is concerned his symptoms are increasing with moving activities both here and at his destination. Certainly I think this is reasonable. We did discuss either topical or oral NSAIDs as well.At this point there has been no indication for any surgical intervention. Somewhere down the road if his symptoms increase or repeat MRI may be helpful but obviously [place] Prednisone was prescribed for episodic use. We instructed him in short-term use only. He understands that should not be a long-term medication unless supervised by medical physician to the potential for side effects. He will use it largely like the custom prednisone previously prescribed which was successful. No orders of the defined types were [...] thigh documented in this encounter Care Teams Criminal Intelligence Specialist Relationship Specialty Start Date End Date Ben Olmedo III, MD [address] [place] [phone] PCP - General Family Medicine 10/28/21 documented as of this encounter
--- OUTSIDE RECORDS SUMMARY | 2024-03-31 04:08 | XMS_ITS | Encounter Summary ---
Author Organization [facility] Address [address] [place] [address] Care Team Providers Care Fuel Dock Attendant Name Role Phone Collin Aburto MD Primary Care Provider [phone] Encounter Details Date Type Department Care Team (Late st Contact Info) Description 02/03/2023 Lab Requisition [facility] Pathology & Laboratory Medicine - [address] [address] Outr Resulting Lab, Provider Social History Tobacco Use Types Packs/Day Years [...] Procedure Name Priority Date/Time Associated Diagnosis Comments PSA TOTAL, DIAGNOSTIC Routine 02/03/2023 10:20 EDT documented in this encounter Results * PSA TOTAL, DIAGNOSTIC (02/03/2023 10:20 EDT) PSA 3.4 <=6.5 ng/mL 02/03/2023 22:37 EDT [facility] Blood VENOUS BLOOD / Unknown 02/03/2023 10:20 EDT 02/03/2023 21:15 EDT Narrative [facility] - 02/03/2023 22:37 EDT NOTE: Serum PSA concentration should not be interpreted as absolute evidence for the presence or absence of malignant disease. Assayed on Siemens ADVIA Centaur XPT using chemiluminescent technology.??Values obtained by using different assay methods cannot be used interchangeably. Provider Outr Resulting Lab CHEMISTRY & BLOOD GAS ORDERABLES [facility] [address] [place] [address] documented in this encounter Visit Diagnoses Not on filedocumented in this encounter Care Teams Fuel Dock Attendant Relationship Specialty Start Date End Date Collin Aburto MD [address] [place] [phone] PCP - General 01/28/11 documented as of this encounter
--- OUTSIDE RECORDS SUMMARY | 2024-03-31 04:08 | XMS_ITS | Encounter Summary ---
Author Organization [facility] Address [address] [place] [address] Care Team Providers Care Clinical Assistant Name Role Phone Shara LEWIS MD, Ben Webb Primary Care Provider + Reason for Visit * Referral (Routine) - Closed Specialty Diagnoses / Procedures Referred By Tram griffin Referred To Contact Rehabilitation Diagnoses Pain, joint, knee, left Left lateral epicondylitis Chondromalacia of left patella Muscle weakness (generalized) Procedures Outpatient Physical Therapy Evaluate and Treat Ben Olmedo III, MD [address] [place] [phone] Ca Op Physical Therapy [phone] [facility] [address] Referral ID Status Reason Start Date Expiration Date Visits Re quested Visits Authorized [id number] Closed 07/08/2022 10/06/2022 10 10 Encounter Details Date Type Department Care Team (Latest Contact Info) Description 08/05/2022 1:55 PM HST - 08/30/2022 11:59 PM HST Hospital Encounter [facility] Out[facility] Rehab [phone] [facility] [address] Marisol Morales, PT Discharge Disposition: [...] suspected to have Coronavirus/COVID-19? No / Unsure 07/29/2022 6:46 AM HST documented as of this encounter Medications at Time of Discharge Medication Sig Dispensed Refills Start Date End Date linaCLOtide (Linzess) 145 mcg Oral Capsule Take 145 mcg by mouth before breakfast daily. HYDROcodone/acetaminop hen 5-325 mg Oral Tablet Take 1 Tablet by mouth every 6 hours as needed for Pain - Moderate. Do not drive or operate Endoclear 6 Tablet 12/15/2021 eszopiclone (LUNESTA) 3 mg [...] Progress Notes * Marisol Morales, PT - 08/05/2022 2:00 PM HST OUTPATIENT PHYSICAL THERAPY TREATMENT NOTE Date of Service: 08/05/2022 Treatment Start Time: 1400 Referral Status: Authorized - Covered Benefit Plan of Care Visits: 5 of 10 (Expiration Date: 10/06/22) Authorized Visits: 5 of 10 (Expiration Date: 10/06/2022) ASSESSMENT Pt performed therapeutic exercise without an increase in sxs. Modalities are assisting with pain control in order to improve ability to participate in active exercises. Pt continues to demonstrate muscle imbalances, LLE strength deficits, L knee ROM restrictions, and pain impairing his function andparticipation in recreational activities. PLAN Continue stretching to L hamstrings, strengthening to LLE, with manual therapy/modalities as neededfor pain control. SUBJECTIVE Pt states that his posterior L knee was not bad. He spoke with Dr. Olmedo this morning and got anRx for Lyrica. He has been better with his exercises. He rates his pain as barely 1/10 currently.He took a pain pill 2-3 hours. OBJECTIVE Patient Education: Daily habits;Review Home exercise program;Proper posture and body mechanics;Pathology;Rehabilitation process Treatment: Manual Therapy: STM L hamstring, anterior tib, quad, and IT band Other Treatment: Moist hot pack pre-treatment x 10 minutes, ice post-treatment x 10 minutes, no charge Therapeutic Exercises Exercise #1: hooklying clamshells lvl 2 band 3 x 10 Exercise #2: hooklying hip add with ball at knees 3 x 10 Exercise #3: supine hamstring stretch with strap 30 Exercise #4: bridge 3 x 10 Exercise #5: SLR 3 x 10 Exercise #6: SAQ 3 x 10 Home Exercise Program Home Exercise Program: 2 2: Access Code: [email or web address] URL: [email or web address] Date: 08/05/2022 Prepared by: Marisol Morales Exercises Active Straight Leg Raise with Quad Set - 1 x daily - 7 x weekly - 3 sets - 10 reps Supine Short Arc Quad - 1 x daily - 7 x weekly - 3 sets - 10 reps Today's Treatment Total Tx Time (minutes): 40 Timed Code Tx (minutes): 40 Therapeutic Exercise (Minutes): 25 Manual Therapy (Minutes): 15 Other Charges Charge ID Procedure Code Description Qty. Modifiers Lock Master User Diagnosis [id number] [facility] PT EXERCISE 15 MIN 2 Marisol Morales PT [id number] [facility] PT MANUAL THERAPY 15 MIN 1 Marisol Morales PT Signed by: Marisol Morales PT 1:1 Direct Physical Therapist Contact: Yes documented in this encounter Plan of Treatment Not on file documented as of this encounter Visit Diagnoses Not on filedocumented in this encounter Care Teams Clinical Assistant Relationship Specialty Start Date End Date Ben Olmedo III, MD [address] [place] [phone] PCP - General Family Medicine 10/28/21 documented as of this encounter
--- OUTSIDE RECORDS SUMMARY | 2024-03-31 04:08 | XMS_ITS | Encounter Summary ---
Author Organization [facility] Address [address] [place] [address] Care Team Providers Care Drum Worker Name Role Phone Shara LEWIS MD, Irving W Primary Care Provider + Encounter Details Date Type Department Care Team (Late st Contact Info) Description 07/10/2022 Plan of Care Documentation [facility] [id number] [facility] [address] [place], [place] [address] Social History Tobacco Use Types Packs/Day Years [...] PM HST documented as of this encounter Plan of Treatment Not on file documented as of this encounter Visit Diagnoses Not on filedocumented in this encounter Care Teams Drum Worker Relationship Specialty Start Date End Date Ben Olmedo III, MD [address] [place] [phone] PCP - General Family Medicine 10/28/21 documented as of this encounter
--- OUTSIDE RECORDS SUMMARY | 2024-03-31 04:08 | XMS_ITS | Encounter Summary ---
Author Organization [facility] Address [address] [place] [address] Care Team Providers Care Glazier Supervisor Name Role Phone Collin Aburto MD Primary Care Provider [phone] Reason for Visit * Reason Comments Follow-up Follow-up Encounter Details Date Type Department Care Team (Late st Contact Info) Description 12/28/2023 11:00 EDT Office Visit [facility] Orthopedics & Podiatry [address], [address] [place] [address] Nomi Nix Elisabet [address] [facility] [address] [place] [address] Plantar fasciitis, right (Primary Dx); Posterior tibial tendon dysfunction; Neuropathy Social History Tobacco Use Types Packs/Day Years [...] Taken Comments Blood Pressure - - Pulse 75 12/28/2023 1054 EDT Temperature - - Respiratory Rate - - Oxygen Saturation 93% 12/28/2023 1054 EDT Inhaled Oxygen Concentration - - Weight - - Height - - Body Mass Index - - documented in this encounter Progress Notes * Fifi Freeman RN - 12/28/2023 1100 EDT Jens presents today for follow up left foot plantar fasciitis. Last seen 11/27/23. Had injection at last visit. * DinahNomi DPElisabet - 12/28/2023 1100 EDTAssociated Order(s): Small Joint Injection/Arthrocentesis Post-Procedure Diagnose(s): Plantar fasciitis, right CHIEF COMPLAINT: Chief Complaint Patient presents with Left Foot - Follow-up Right Foot - Follow-up SUBJECTIVE: Jens Ayala is a 78 y.o. male who presents today for follow up for concerns to both feet. At his last visit Jens had an injection to his left plantar fascia for plantar fasciitis. He continues to manage this conservatively at home, and relates that he feels that the left side is feelingbetter. He would like an injection on the right side today for similar concerns. He also has concerns with pain in his arches, equal bilaterally, worse with ambulation. Finally, he also has concerns with a burning sensation in his feet bilaterally that can keep him up or wake him up at night. He was previously on gabapentin, however he has not taken that for a while. Denies other pedal complaints. I have reviewed the medication list. Pertinent changes noted. ROS: Constitutional: negative for, fever, Musculoskeletal:positive for foot pain OBJECTIVE: Pulse 75 SpO2 93% Gen: A+Ox3, NAD Lower extremity examination Vascular: Dorsalis pedis and posterior pulses diminished, CFT delayed to all digits, TG warm to warm within normal limits. moderate Edema present Neurological: protective sensation diminished. Subjective burning present along tibial nerve dermatome bilaterally. Dermatological: negative erythema, negative ecchymosis, no open lesions, no clinical signs of infection present, varicosities present bilaterally. Musculoskeletal: pain with palpation of the medial calcaneal tuberosity and posterior tibial tendonbilaterally. Single heel rise and double heel rise produces pain in medial ankle. Pes planus bilaterally. ASSESSMENT/PLAN: 1. Plantar fasciitis, right Plantar fascia Injection: Procedure Note Consent: The patient and I discussed the potential benefits and risks of corticosteroid injection. Oral and written informed consent has been given by the patient. Prep: Patient identity and site verification was confirmed by me. Skin prep was performed with alcohol. . Procedure: Injection into the right plantar fascia was performed with 2cc 0.5% Marcaine plain, 4 mgof dexamethasone phosphate. Hemostasis was obtained and band-aid placed to area. . Post Procedure: Post procedure instructions were provided. Patient will limit activity for the next3 days. The patient is to call if any problems or questions arise. Patient will follow up in 3-4 weeks . Small Joint Injection/Arthrocentesis on 12/28/2023 11:00 Medications: 4 mg dexAMETHasone 4 mg/mL; 2 mL BUPivacaine (PF) 0.5% 2. Posterior tibial tendon dysfunction Rx for physical therapy will be sent once Jens provides a location he would like to go to. Continueto wear supportive sneakers. 3. Neuropathy Recommend having a conversation with his PCP about restarting gabapentin or similar medication for the neuropathy pain. This note was prepared using voice recognition software and the EMR. There may be inadvertent errors and omissions. Nomi Nix DPM 12/28/2023 documented in this encounter Plan of Treatment Not on file documented as of this encounter Procedures Procedure Name Priority Date/Time Associated Diagnosis Comments SMALL JOINT INJECTION/ARTHROCEN TESIS Routine 12/28/2023 11:00 EDT Plantar fasciitis, right documented in this encounter Results * CO ARTHROCENTESIS ASPIR&/INJ SMALL JT/BURSA W/O US (12/28/2023 11:00 EDT) Narrative [facility]INT [facility] - 12/28/2023 11:00 EDT Nomi Nix DPM ? 01/01/2024 ??7:50 Small Joint Injection/Arthrocentesis on 12/28/2023 11:00 Medications: 4 mg dexAMETHasone 4 mg/mL; 2 mL BUPivacaine (PF) 0.5% Nomi Nix DPM PROCEDURE/MINOR S URGICAL ORDERABLES [facility] POINT [facility] CARE documented in this encounter Visit Diagnoses Diagnosis Plantar fasciitis, right- Primary Plantar fascial fibromatosis Posterior tibial tendon dysfunction Other disorders of synovium, tendon, and bursa Neuropathy Mononeuritis of unspecified site documented in this encounter Administered Medications Inactive Administered Medications - up to 3 most recent administrations Medication Order MAR Action Action Date Dose Rate Site BUPivacaine (PF) (MARCAINE) 0.5% injection 2 mL 2 mL, injection, Once PRN Procedure, 1 dose, Starting on Thu12/28/23 at 1100, Until Thu12/28/23 at 1100, Routine Given 12/28/2023 11:00 EDT 2 mL dexAMETHasone (DECADRON) injection 4 mg 4 mg, other, Once PRN Procedure, 1 dose, Starting on Thu12/28/23 at 1100, Until Thu12/28/23 at 1100, Routine Given 12/28/2023 11:00 EDT 4 mg documented in this encounter Care Teams Glazier Supervisor Relationship Specialty Start Date End Date Collin Aburto MD [address] [place] [id number] PCP - General 01/28/11 documented as of this encounter
--- OUTSIDE RECORDS SUMMARY | 2024-03-31 04:08 | XMS_ITS | Encounter Summary ---
Author Organization [facility] Address [address] [place] [address] Care Team Providers Care Radiation Control Specialist Name Role Phone Collin Aburto MD Primary Care Provider [phone] Reason for Visit * Reason Comments Follow-up Follow-up Encounter Details Date Type Department Care Team (Late st Contact Info) Description 02/05/2024 10:00 EDT Office Visit [facility] Orthopedics & Podiatry [address], [address] [place] [address] Nomi Nix [facility] [address] [facility] [address] [place] [address] Plantar fasciitis, right (Primary Dx); Neuropathy; Onychomycosis Social History Tobacco Use Types Packs/Day [...] Taken Comments Blood Pressure - - Pulse 68 02/05/2024 1002 EDT Temperature - - Respiratory Rate - - Oxygen Saturation 98% 02/05/2024 1002 EDT Inhaled Oxygen Concentration - - Weight - - Height - - Body Mass Index - - documented in this encounter Progress Notes * Tai Vivas MA - 02/05/2024 1000 EDT Burning sensation on bottoms of feet been better for past few weeks * Nomi Nix, NATALYA - 02/05/2024 1000 EDT CHIEF COMPLAINT: Chief Complaint Patient presents with Right Foot - Follow-up Left Foot - Follow-up SUBJECTIVE: Jens Ayala is a 78 y.o. male who presents today for follow up with multiple concerns to both feet. He has been seen in the past for plantar fasciitis bilaterally. He has undergone one injection in each plantar fascia and continues to manage this conservatively at home. He states that while the injections provided minimal relief he believes he is turning a corner with his conservativemanagement. He notes that the burning sensations in his feet are more bothersome than the heel pain. He also is frustrated with his nails as he is trying to manage the length and thickness and does not like how the current medication is applied. Denies new pedal complaints. Denies constitutional sym ptoms. I have reviewed the medication list. Pertinent changes noted. ROS: Constitutional: negative for, fever, Musculoskeletal:positive for foot pain OBJECTIVE: Pulse 68 SpO2 98% Gen: A+Ox3, NAD Lower extremity examination Vascular: [...] planus bilaterally. ASSESSMENT/PLAN: 1. Plantar fasciitis, right Jens feels he is turning a corner with conservative management. Does not want an injection today. Continue supportive shoegear and at-home stretching. May return in the future for an injection as needed 2. Neuropathy Use lidoderm patches as needed if helpful. May consider a conversation with his PCP about a medication for neuropathy or possible nerve conduction study if symptoms persist or worsen. 3. Onychomycosis Jens will be reaching out to the company that supplies the medication for a different applicator. He may need me to sign something which I am happy to do. Follow up as needed This note was prepared using voice recognition software and the EMR. There may be inadvertent errors and omissions. Nomi Nix DPM 02/05/2024 documented in this encounter Plan of Treatment Not on file documented as of this encounter Visit Diagnoses Diagnosis Plantar fasciitis, right- Primary Plantar fascial fibromatosis Neuropathy Mononeuritis of unspecified site Onychomycosis Dermatophytosis of nail documented in this encounter Care Teams Radiation Control Specialist Relationship Specialty Start Date End Date Collin Aburto MD [address] [place] [phone] PCP - General 01/28/11 documented as of this encounter
--- OUTSIDE RECORDS SUMMARY | 2024-03-31 04:08 | XMS_ITS | Encounter Summary ---
Author Organization [facility] Address [address] [place] [address] Care Team Providers Care Extension Service Specialist In Charge Name Role Phone Shara LEWIS MD, Ben Webb Primary Care Provider + Reason for Referral * Imaging (Routine) - Closed Specialty Diagnoses / Procedures Referred By Contac t Referred To Contact Diagnoses Pain of both elbows Chronic pain of left knee Chondromalacia, patella, left Hamstring tendinitis of left thigh Procedures MRI - KNEE WITHOUT IV CONTRAST Joshua Patricio MD [phone] [facility] [phone] [facility] [phone] [place] [address] Referral ID Status Reason Start Date Expiration Date Visits Re quested Visits Authorized [id number] Closed 04/23/2022 1 1 Reason for Visit * Imaging (Routine) - Closed Specialty Diagnoses / Procedures Referred By Contac t Referred To Contact Diagnoses Pain of both elbows Chronic pain of left knee Chondromalacia, patella, left Hamstring tendinitis of left thigh Procedures MRI - KNEE WITHOUT IV CONTRAST Joshua Patricio MD [id number] [place] [address] [facility] M[facility] [phone] [place] [address] Referral ID Status Reason Start Date Expiration Date Visits Re quested Visits Authorized [id number] Closed 04/23/2022 1 1 Encounter Details Date Type Department Care Team (Latest Contact Info) Description 06/25/2022 10:28 AM HST - 06/25/2022 11:59 PM HST Hospital Encounter [facility] [phone] [place] [address] Discharge Disposition: D/C Home, Self Care Social [...] - Moderate. Do not drive or operate [place] 6 Tablet 12/15/2021 eszopiclone (LUNESTA) 3 mg [...] Procedure Name Priority Date/Time Associated Diagnosis Comments MRI - KNEE WITHOUT IV CONTRAST Routine 06/25/2022 11:16 AM HST Pain of both elbows Chronic pain of left knee Chondromalacia, patella, left Hamstring tendinitis of left thigh documented in this encounter Results * MRI - KNEE [...] ELECTRONICALLY SIGNED BY: ??GIOVANY SEGOVIA WORKSTATION ID: [id number] Narrative 06/25/2022 12:17 PM HST Result Status: [...] gastrocnemius and pes anserinus tendons are normal. [id number] signal infiltrates the quadriceps tendon indicating tendinosis. [...] ELECTRONICALLY SIGNED BY: GIOVANY SEGOVIA WORKSTATION ID: [id number] Joshua Patricio MD MRI-ORDERABLE documented in this encounter Visit Diagnoses Diagnosis Pain of both elbows Pain in joint, upper arm Chronic pain of left knee Pain in joint, lower leg Chondromalacia, patella, left Hamstring tendinitis of left thigh documented in this encounter Care Teams Extension Service Specialist In Charge Relationship Specialty Start Date End Date Ben Olmedo III, MD [address] [place] [phone] PCP - General Family Medicine 10/28/21 documented as of this encounter
--- OUTSIDE RECORDS SUMMARY | 2024-03-31 04:08 | XMS_ITS | Encounter Summary ---
Author Organization [facility] Address [address] [place] [address] Care Team Providers Care Centrifugal Spinner Name Role Phone Shara LEWIS MD, Ben Webb Primary Care Provider + Reason for Visit * Referral (Routine) - Closed Specialty Diagnoses / Procedures Referred By Tram griffin Referred To Contact Rehabilitation Diagnoses Pain, joint, knee, left Left lateral epicondylitis Chondromalacia of left patella Muscle weakness (generalized) Procedures Outpatient Physical Therapy Evaluate and Treat Ben Olemdo III, MD [address] [place] [phone] T[place] Op Physical Therapy [phone] [facility] [place] [address] Referral ID Status Reason Start Date Expiration Date Visits Re quested Visits Authorized [id number] Closed 07/08/2022 10/06/2022 10 10 Encounter Details Date Type Department Care Team (Latest Contact Info) Description 07/22/2022 2:00 PM HST - 07/30/2022 11:59 PM HST Hospital Encounter [facility] Outpatient Rehab [phone] [facility] [place] [address] Marisol Morales, PT Discharge Disposition: [...] - Moderate. Do not drive or operate [employer] 6 Tablet 12/15/2021 eszopiclone (LUNESTA) 3 mg [...] Progress Notes * Marisol Morales, PT - 07/22/2022 2:00 PM HST OUTPATIENT PHYSICAL THERAPY TREATMENT NOTE Date of Service: 07/22/2022 Treatment Start Time: 1400 Referral Status: Authorized - Covered Benefit Plan of Care Visits: 3 of 10 (Expiration Date: 10/06/22) Authorized Visits: 3 of 10 (Expiration Date: 10/06/2022) ASSESSMENT Pt tolerated therapeutic exercise progression with NuStep machine without an increase in sxs. He continues to demonstrate muscle imbalances, LLE strength deficits, and L knee ROM deficits impairing his functional mobility and participation in recreation. PLAN Continue stretching to L hamstrings, strengthening to LLE, and manual therapy/modalities as needed for pain control. SUBJECTIVE Pt states that he has been trying to have the brace off and see if the pain gets better or worse. He states that his L knee pain has been about the same. Pt rates his pain as 1/10 currently OBJECTIVE Patient Education: Daily habits;Review Home exercise program;Proper posture and body mechanics;Pathology;Rehabilitation process Treatment: Manual Therapy: STM L hamstring, anterior tib, quad, and IT band Other Treatment: Ice-post treatment x 10 minutes, no charge Therapeutic Exercises Exercise #1: hooklying clamshells lvl 2 band 3 x 10 Exercise #2: hooklying hip add with ball at knees 3 x 10 Exercise #3: supine hamstring stretch with strap 30x 2 Exercise #4: bridge 3 x 10 Exercise #5: SLR 3 x 10 Exercise #6: SAQ 3 x 10 Exercise #7: NuStep freebird x 5 minutes Exercise #8: standing gastroc stretch on slant board lvl 2 30 x 2 Today's Treatment Total Tx Time (minutes): 45 Timed Code Tx (minutes): 45 Therapeutic Exercise (Minutes): 30 Manual Therapy (Minutes): 15 Other Charges Charge ID Procedure Code Description Qty. Modifiers Recycling Technician User Diagnosis [id number] [facility] PT EXERCISE 15 MIN 2 Marisol Morales PT [id number] [facility] PT MANUAL THERAPY 15 MIN 1 Marisol Morales PT Signed by: Marisol Morales PT 1:1 Direct Physical Therapist Contact: Yes documented in this encounter Plan of Treatment Not on file documented as of this encounter Visit Diagnoses Not on filedocumented in this encounter Care Teams Centrifugal Spinner Relationship Specialty Start Date End Date Ben Olmedo III, MD [address] [place] [phone] PCP - General Family Medicine 10/28/21 documented as of this encounter
--- OUTSIDE RECORDS SUMMARY | 2024-03-31 04:08 | XMS_ITS | Encounter Summary ---
Author Organization [facility] Address [address] [place] [address] Care Team Providers Care Human Resources Office Manager Name Role Phone Shara LEWIS MD, Irving W Primary Care Provider + Encounter Details Date Type Department Care Team (Late st Contact Info) Description 06/13/2022 Plan of Care Documentation [facility] Outpatient Rehab [id number] [facility] [place], [place] [phone] Social History Tobacco Use Types Packs/Day Years [...] suspected to have Coronavirus/COVID-19? No / Unsure 06/12/2022 1:07 PM HST documented as of this encounter Plan of Treatment Not on file documented as of this encounter Visit Diagnoses Not on filedocumented in this encounter Care Teams Human Resources Office Manager Relationship Specialty Start Date End Date Ben Olmedo III, MD [address] [place] [address] PCP - General Family Medicine 10/28/21 documented as of this encounter
--- OUTSIDE RECORDS SUMMARY | 2024-03-31 04:08 | XMS_ITS | Encounter Summary ---
Author Organization [facility] Address [address] [place] [address] Care Team Providers Care School Coordinator Name Role Phone Collin Aburto MD Primary Care Provider [phone] Encounter Details Date Type Department Care Team (Late st Contact Info) Description 07/15/2011 Phlebotomy Only [facility] [address] [place] [address] Transfer Station Operator, Outpatient Memory loss Social History Tobacco Use Types Packs/Day Years Used Date Smoking Tobacco: Never Assessed Sex and Gender Information Value Date Recorded Sex Assigned at Not on file Gender Identity Not on file Sexual Orientation Not on file documented as of this encounter Plan of Treatment Not on file documented as of this encounter Procedures Procedure Name Priority Date/Time Associated Diagnosis Comments SYPHILIS SEROLOGY Routine 07/15/2011 10: 03 EST Memory loss FOLATE Routine 07/15/2011 10:03 EST Memory loss VITAMIN B12 Routine 07/15/2011 10:03 EST Memory loss COMPREHENSIVE METABOLIC PANEL (CMP) Routine 07/15/2011 10:03 EST Memory loss documented in this encounter Results * SYPHILIS SEROLOGY (07/15/2011 10:03 EST) Syphilis Serology Interpretation: Nonreactive [facility] Comment:Reference Range: Non reactive Blood specimen (specimen) 07/15/2011 10:03 EST 07/15/2011 10:34 EST Chester Myers MD IMMUNOLOGY AND S EROLOGY ORDERABLES Performing Organization Address City/State/[facility] Co de Phone Number [facility] [address] [place] [address] * VITAMIN B12 (07/15/2011 10:03 EST) Pathologist [facility] Vitamin B-12 500 211 - 911 pg/ml [facility] Blood specimen (specimen) 07/15/2011 10:03 EST 07/15/2011 10:34 EST Chester Myers MD CHEMISTRY & BLOO D GAS ORDERABLES Performing Organization Address [facility] de Phone Number [facility] [address] [place] [address] * FOLATE (07/15/2011 10:03 EST) [facility] Folate 18.3 ng/mL [facility] Comment: Deficient: ??Less than 3.4 ng/mL Indeterminate: ??3.4-5.4 ng/mL Normal: ??Greater than 5.4 ng/mL Blood specimen (specimen) 07/15/2011 10:03 EST 07/15/2011 10:34 EST Chester Myers MD CHEMISTRY & BLOO D GAS ORDERABLES Performing Organization Address [facility] de Phone Number [facility] [address] [place] [address] * (ABNORMAL) COMPREHENSIVE METABOLIC PANEL (CMP) (07/15/2011 10:03 EST) [facility] Potassium 5.1(H) 3.5 - 5.0 mEq/L [facility] [...] LAB ALT 39 21 - 72 U/L [facility] Albumin 4.3 3.4 - 4.9 g/dl [...] Glucose, Serum 109(H) 70 - 100 mg/dl [facility] Fasting? Unknown [facility] Blood specimen (specimen) 07/15/2011 10:03 EST 07/15/2011 10:34 EST Chester Myers MD CHEMISTRY & BLOO D GAS ORDERABLES Performing Organization Address City/State/[facility] Co de Phone Number [facility] [address] [place] [address] documented in this encounter Visit Diagnoses Diagnosis Memory loss documented in this encounter Care Teams School Coordinator Relationship Specialty Start Date End Date Collin Aburto MD [address] [place] [id number] PCP - General 01/28/11 documented as of this encounter
--- OUTSIDE RECORDS SUMMARY | 2024-03-31 04:08 | XMS_ITS | Encounter Summary ---
Author Organization [facility] Address [address] [place] [address] Care Team Providers Care Video Games Storywriter Name Role Phone Collin Aburto MD Primary Care Provider [phone] Reason for Visit * Reason Onset Date Comments Appointment Related 03/21/2011 Confirming a ppts Encounter Details Date Type Department Care Team (Late st Contact Info) Description 03/21/2011 Telephone [facility] Neurology - [address] [phone] Chester Myers MD [address] [place] [address] Medical Office Building, [address] [place] [address] Appointment Related (Confirming appts) Social History Tobacco Use Types Packs/Day Years Used Date Smoking Tobacco: Never Assessed Sex and Gender Information Value Date Recorded Sex Assigned at Not on file Gender Identity Not on file Sexual Orientation Not on file documented as of this encounter Miscellaneous Notes * Telephone Encounter - Candy Bergman - 03/21/2011 1119 EDT Karlee left ms to confirm appointments. Was showing for March & May. Left msg that she had appts on 8. and 9. and 07.22.11. Told her to confirm when she came in March whether she needed July appointment. documented in this encounter Plan of Treatment Not on file documented as of this encounter Visit Diagnoses Not on filedocumented in this encounter Care Teams Video Games Storywriter Relationship Specialty Start Date End Date Collin Aburto MD [address] [place] [phone] PCP - General 01/28/11 documented as of this encounter
--- OUTSIDE RECORDS SUMMARY | 2024-03-31 04:08 | XMS_ITS | Encounter Summary ---
Author Organization [facility] Address [address] [place] [address] Care Team Providers Care Hearing Aid Technician Name Role Phone Shara LEWIS MD, Ben Webb Primary Care Provider + Reason for Visit * Referral (Routine) - Closed Specialty Diagnoses / Procedures Referred By Tram griffin Referred To Contact Rehabilitation Diagnoses Pain, joint, knee, left Left lateral epicondylitis Chondromalacia of left patella Muscle weakness (generalized) Procedures Outpatient Physical Therapy Evaluate and Treat Ben Olmedo III, MD [address] [place] [phone] [place] Op Physical Therapy [phone] [facility] [place] [address] Referral ID Status Reason Start Date Expiration Date Visits Re quested Visits Authorized [id number] Closed 07/08/2022 10/06/2022 10 10 Encounter Details Date Type Department Care Team (Latest Contact Info) Description 07/17/2022 2:58 PM HST - 07/30/2022 11:59 PM HST Hospital Encounter [facility] Outpatient Rehab [phone] [address] [facility] [place] [place] [address] Marisol Morales, PT Discharge Disposition: [...] - Moderate. Do not drive or operate [employer] 6 Tablet 12/15/2021 eszopiclone (LUNESTA) 3 mg [...] Progress Notes * Marisol Morales, PT - 07/17/2022 3:00 PM HST OUTPATIENT PHYSICAL THERAPY TREATMENT NOTE Date of Service: 07/17/2022 Treatment Start Time: 1500 Referral Status: Authorized - Covered Benefit Plan of Care Visits: 2 of 10 (Expiration Date: 10/06/22) Authorized Visits: 2 of 10 (Expiration Date: 10/06/2022) ASSESSMENT Pt presents with muscle imbalances, LLE strength deficits, and L knee ROM deficits contributing to his sxs. He participated in therapeutic exercise without an increase in sxs. He would benefit from continued skilled PT intervention to address the above mentioned concerns and facilitate maximal functional outcome. PLAN Continue stretching to L hamstrings, strengthening to LLE, and manual therapy/modalities as needed for pain control. SUBJECTIVE Pt states that he has found ways to help his feet and L knee. He puts heat on the feet prior to activity and ice afterwards. He has been wearing the L knee brace which continues to help. He rates hispain as 1/10 currently (wearing the brace) and 2-3/10 when he doesn't wear a brace. OBJECTIVE Patient Education: Daily habits;Review Home exercise program;Proper posture and body mechanics;Pathology;Rehabilitation process Treatment: Manual Therapy: STM L hamstring, anterior tib, quad, and IT band. Other Treatment: Ice-post treatment, no charge Therapeutic Exercises Therapeutic Exercises: 10 Exercise #1: hooklying clamshells lvl 2 band 3 x 10 Exercise #2: hooklying hip add with ball at knees 3 x 10 Exercise #3: supine hamstring stretch with strap 30, 10 x 2 Exercise #4: bridge 3 x 10 Exercise #5: SLR 3 x 10 Exercise #6: SAQ 3 x 10 Today's Treatment Total Tx Time (minutes): 45 Timed Code Tx (minutes): 45 Therapeutic Exercise (Minutes): 30 Manual Therapy (Minutes): 15 Other Charges Charge ID Procedure Code Description Qty. Modifiers Market Editor User Diagnosis [id number] [facility] PT EXERCISE 15 MIN 2 Marisol Morales PT [id number] [facility] PT MANUAL THERAPY 15 MIN 1 Marisol Morales PT Signed by: Marisol Morales PT 1:1 Direct Physical Therapist Contact: Yes documented in this encounter Plan of Treatment Not on file documented as of this encounter Visit Diagnoses Not on filedocumented in this encounter Care Teams Hearing Aid Technician Relationship Specialty Start Date End Date Ben Olmedo III, MD [address] [place] [phone] PCP - General Family Medicine 10/28/21 documented as of this encounter
--- OUTSIDE RECORDS SUMMARY | 2024-03-31 04:08 | XMS_ITS | Encounter Summary ---
Author Organization [facility] Address [address] [place] [address] Care Team Providers Care Sheet Tester Name Role Phone Collin Aubrto MD Primary Care Provider [phone] Reason for Visit * Reason Comments Memory Loss Encounter Details Date Type Department Care Team (Late st Contact Info) Description 03/22/2012 14:00 EDT Office Visit [facility] - Medical Office Building [address] [place] [phone] Chester Myers MD [address] [place] [address] Medical Office Building, [address] [place] [address] MCI (mild cognitive impairment) (Primary [...] Progress Notes * Chester Myers MD - 03/24/2012 0858 EDT NEUROLOGY HEALTH CARE SERVICE [facility] Medical Office Building [address] [place] [address], [address] [address] PROGRESS/FOLLOWUP NOTE - 03/22/2012 PROBLEM: Mild cognitive impairment. SUBJECTIVE: Mr Ayala [facility] today accompanied by his partner, Karlee Chin, for a reevaluation visit. I last saw Mr Ayala in August 2011. Since that time, he believes that his overall cognitive abilities, if anything, are improved. Karlee tended to agree with this assessment, although she mentioned several isolated examples of what she thought was memory loss or confusion. Mr Ayala has had no new medical issues, hospitalizations or ER visits. MEDICATIONS: I reviewed medications today and these continue as: Oxycodone p.r.n. Simvastatin. Amitriptyline 125 mg. Lunesta 3 mg. Ritalin 10 mg. Mirtazapine 30 mg. OBJECTIVE: Mr Ayala underwent repeat neuropsychological testing today and this disclosed an MMSE score of 30 compared to 26 in July 2011, and an ADAS score of 6 compared to 8. ASSESSMENT: Mr Ayala actually shows incremental improvement on neuropsychological testing today. There is no evidence to suggest that he is developing a progressive dementia at this time. PLAN: 1. I met with Mr Ayala and his partner, Karlee Chin, for 17 minutes of [id number]-dr-awji conversation and discussion, with more than 10 minutes used for counseling and coordination of care. 2. I made no medication or other treatment recommendations. 3. Follow up in 1 year. Electronically Signed by Chester Myers MD 03/24/2012 11:22 Chester Myers MD Chiropractic Care - Chester Myers MD - Job ID: SM Doc ID: [id number] Ext Doc ID: [id number] cc: Collin Aburto MD * Chester Myers MD - 03/22/2012 1359 EDT This office note has been dictated. documented in this encounter Plan of Treatment Not on file documented as of this encounter Visit Diagnoses Diagnosis MCI (mild cognitive impairment)- Primary Mild cognitive impairment, so stated documented in this encounter Discontinued Medications Medication Sig Discontinue Reason Start Date End Da te atorvastatin (LIPITOR) 10 mg tablet Take 10 mg by mouth daily. Alternate therapy 03/22/2012 documented as of this encounter Historical Medications * This list may reflect changes made after this encounter. Medication Sig Dispensed Refills Start Date End Date mirtazapine (REMERON) 30 mg tablet Take 30 mg by mouth at bedtime. SIMVASTATIN ORAL Take 1 Tab by mouth daily. added in this encounter Care Teams Sheet Tester Relationship Specialty Start Date End Date Collin Aburto MD [address] [place] [phone] PCP - General 01/28/11 documented as of this encounter
--- OUTSIDE RECORDS SUMMARY | 2024-03-31 04:08 | XMS_ITS | Encounter Summary ---
Author Organization Health system Address [address] [place] [address] Care Team Providers Care Director Of Materials Name Role Phone Collin Aburto MD Primary Care Provider [phone] Encounter Details Date Type Department Care Team (Latest Contact Info) Description 12/03/2018 13:23 EDT - 12/03/2018 23:59 EDT Hospital Encounter [facility] - [address] [phone] Unknown, ProviderMD Discharge Disposition: Home or Self Care Social [...] Take 125 mg by mouth at bedtime. eszopiclone (LUNESTA) 3 mg Tab Take 1 Tablet by mouth at bedtime. methylphenidate (RITALIN) 10 mg tablet Take 10 mg by mouth daily. mirtazapine (REMERON) 30 mg tablet Take 30 mg by mouth at bedtime. OXYCODONE HCL (OXYCODONE ORAL) Take 1 Tab by mouth as needed. SIMVASTATIN ORAL Take 1 Tab by mouth daily. documented as of this encounter Discharge Disposition Disposition Code Departure Means Destination Home or Self Longterm documented in this encounter Plan of Treatment Not on file documented as of this encounter Visit Diagnoses Not on filedocumented in this encounter Care Teams Director Of Materials Relationship Specialty Start Date End Date Collin Aburto MD [address] [place] [address] PCP - General 01/28/11 documented as of this encounter
--- OUTSIDE RECORDS SUMMARY | 2024-03-31 04:08 | XMS_ITS | Encounter Summary ---
Author Organization [facility] Address [address] [place] [address] Care Team Providers Care Sawmill Manager Name Role Phone Shara LEWIS MD, Ben Webb Primary Care Provider + Reason for Visit * Referral (Routine) - Closed Specialty Diagnoses / Procedures Referred By Tram griffin Referred To Contact Rehabilitation Diagnoses Pain, joint, knee, left Left lateral epicondylitis Chondromalacia of left patella Muscle weakness (generalized) Procedures Outpatient Physical Therapy Evaluate and Treat Ben Olmedo III, MD [address] [place] [phone] [place] Op Physical Therapy [phone] [facility] [place] [address] Referral ID Status Reason Start Date Expiration Date Visits Re quested Visits Authorized [id number] Closed 07/08/2022 10/06/2022 10 10 Encounter Details Date Type Department Care Team (Latest Contact Info) Description 08/12/2022 1:57 PM HST - 08/30/2022 11:59 PM HST Hospital Encounter [facility] Outpatient Rehab [phone] [facility] [place] [address] Marisol Morales, PT Discharge Disposition: [...] - Moderate. Do not drive or operate [employer] 6 Tablet 12/15/2021 eszopiclone (LUNESTA) 3 mg [...] Progress Notes * Marisol Morales, PT - 08/12/2022 2:00 PM HST OUTPATIENT PHYSICAL THERAPY TREATMENT NOTE Date of Service: 08/12/2022 Treatment Start Time: 1400 Referral Status: Authorized - Covered Benefit Plan of Care Visits: 6 of 10 (Expiration Date: 10/06/22) Authorized Visits: 6 of 10 (Expiration Date: 10/06/2022) ASSESSMENT Pt performed therapeutic exer cise without an increase in sxs. He continues to demonstrate muscle imbalances, LLE strength deficits, L knee ROM restrictions, and pain impairing his function and participation in recreational activities. PLAN Continue stretching to L hamstrings, strengthening to LLE, with manual therapy/modalities as neededfor pain control. SUBJECTIVE Pt states that his L knee is a little better. He states, however, that he hasn't been doing too much activity that would aggravate the knee. He has been trying to increase the frequency that he performs his home program. He rates his pain as <1/10 currently. Noted area of red skin to posterior medial thigh after hot pack was removed. Pt denies pain to this area. OBJECTIVE Patient Education: Daily habits, Review Home exercise program, Proper posture and body mechanics, Pathology, Rehabilitation process Treatment: Manual Therapy: STM L hamstring, gastroc, and IT band Other Treatment: Moist hot pack pre-treatment x 10 minutes, ice post-treatment x 10 minutes, no charge Therapeutic Exercises Exercise #1: hooklying clamshells lvl 3 band 3 x 10 Exercise #2: hooklying hip add with ball at knees 3 x 10 Exercise #3: supine hamstring stretch with strap 30 x 2 Exercise #4: bridge 3 x 10 Exercise #5: SLR 3 x 10 Exercise #6: SAQ 3 x 10 Today's Treatment Total Tx Time (minutes): 40 Timed Code Tx (minutes): 40 Therapeutic Exercise (Minutes): 25 Manual Therapy (Minutes): 15 Other Charges Charge ID Procedure Code Description Qty. Modifiers Court Bailiff User Diagnosis [id number] [facility] PT EXERCISE 15 MIN 2 Marisol Morales PT [id number] [facility] PT MANUAL THERAPY 15 MIN 1 Marisol Morales PT Signed by: Marisol Morales PT 1:1 Direct Physical Therapist Contact: Yes documented in this encounter Plan of Treatment Not on file documented as of this encounter Visit Diagnoses Not on filedocumented in this encounter Care Teams Sawmill Manager Relationship Specialty Start Date End Date Ben Olmedo III, MD [address] [place] [phone] PCP - General Family Medicine 10/28/21 documented as of this encounter
--- OUTSIDE RECORDS SUMMARY | 2024-03-31 04:08 | XMS_ITS | Encounter Summary ---
Author Organization [facility] Address [address] [place] [address] Care Team Providers Care Tube Puller Name Role Phone Shara LEWIS MD, Ben Webb Primary Care Provider + Reason for Referral * Referral (Routine) - Closed Specialty Diagnoses / Procedures Referred By Contac t Referred To Contact Rehabilitation Diagnoses Plantar fasciitis Pain in right foot Pain in left foot Difficulty in walking, not elsewhere classified Muscle weakness (generalized) Procedures Outpatient Physical Therapy Evaluate and Treat Ben Brown III, MD [address] [place] [phone] [place] [facility] [phone] [facility] [address] Referral ID Status Reason Start Date Expiration Date Visits Re quested Visits Authorized [id number] Closed 06/12/2022 09/10/2022 10 10 Reason for Visit * Referral (Routine) - Closed Specialty Diagnoses / Procedures Referred By Contac t Referred To Contact Rehabilitation Diagnoses Plantar fasciitis Pain in right foot Pain in left foot Difficulty in walking, not elsewhere classified Muscle weakness (generalized) Procedures Outpatient Physical Therapy Evaluate and Treat Ben Brown III, MD [address] [place] [phone] [place] Op Physical Therapy [phone] [facility] [place] [address] Referral ID Status Reason Start Date Expiration Date Visits Re quested Visits Authorized [id number] Closed 06/12/2022 09/10/2022 10 10 Encounter Details Date Type Department Care Team (Latest Contact Info) Description 06/12/2022 1:55 PM HST - 06/30/2022 11:59 PM HST Hospital Encounter [facility] Outpatient Rehab [phone] [facility] [place] [address] Marisol Morales, PT Discharge Disposition: Still A [...] - Moderate. Do not drive or operate [employer] 6 Tablet 12/15/2021 eszopiclone (LUNESTA) 3 mg [...] Consult Notes * Marisol Morales, PT - 06/12/2022 2:00 PM HST OUTPATIENT PHYSICAL THERAPY INITIAL EVALUATION Name: Jens Ayala : 1945 Date of Service: 06/12/2022 Referring Physician / NPP: Ben Brown III, MD Referral / Medical Diagnosis: Plantar fasciitis PT diagnosis: Pain in Right Foot [M79.671], Pain in Left Foot [M79.672], Difficulty Walking [R26.2], Generalized Muscle Weakness [M62.81] ASSESSMENT / REASON FOR SKILLED THERAPY Jens Ayala is a 77 y.o. male who presents for PT evaluation with a primary c/o B foot pain (R>L). Signs and sxs are consistent with plantar fasciitis. Pt demonstrates pain, ankle DF ROM restrictions, and gastroc/soleus strength deficits limiting his ability to participate in daily activities and recreation. He would benefit greatly from skilled PT services to address these concerns, improve functional outcomes, and facilitate return to prior level of function and activity. Pt was A&O x 4 and gave informed consent for physical therapy evaluation and treatment. Shelter Goals (see Duration below) Pt will be independent with HEP in order to self-manage sxs and improve functional independence. Pt will report B foot pain of no greater than 2/10 while walking and standing to improve independence and return to previous activities and prior level of function. Pt will improve score on LEFS to at least 60% to demonstrate improved function and reduced disability. PROGNOSIS/REHABILITATION POTENTIAL:Good PLAN OF TREATMENT: Frequency: 2 x/week Duration: 10 visits by 09/11/2022 (to include today's treatment 06/12/2022) Interventions: Therapeutic exercise, Therapeutic activity, Neuromuscular re- education, Manual therapy, Home exercise program instruction, Patient/caregiver education, Body mechanics/posture training,Self-care/home management Modalities: Ultrasound and Gait Training Recommendations: Initiate above treatment plan Thank you for the opportunity to work with your patient. Please call me at [phone] if you haveany concerns. Marsiol Morales, PT SUBJECTIVE Patient is a 77 year old male with chief complaints of B foot pain since late Mar/early May. He reports a hx of plantar fasciitis about 4 years ago that resolved after about 6 months after changing footwear and having PT. Pt states that in Late Mar/early May., he was walking on the track and decided to stretch every 1/2 lap. He states that when he woke up the next morning, he had pain to the plantar surface of both feet. The majority of the pain started on the R side and progressed to the L. He describes the pain as sharp. Date of Referral: 06/04/2022 Current functional limitation(s): walking, standing, stair negotiation, and running/jogging. Alleviating factors/activities: brace (provided by certified alcohol drug counselor), night splints, ice, and rest. Prior to symptom onset, patient was able to perform the above listed functions independently. Preferred Language: Afghan [1] Co-morbidities/personal factors: hx of plantar fasciitis 4 years ago, depression The above is/are relevant to the physical therapy plan of care because development of compensatory strategies. Patient / Caregiver Stated Goals: Patient would like to get back to his exercise routine. Imaging: XRAY - FOOT 3V (AP, LATERAL & [...] ELECTRONICALLY SIGNED BY: MARTIN SMITH WORKSTATION ID: [id number] XRAY - FOOT 3V (AP, LATERAL & [...] ELECTRONICALLY SIGNED BY: MARTIN SMITH WORKSTATION ID: [id number] Allergies: Patient has no known allergies. Past [...] - Moderate. Do not drive or operate [employer] 6 Tablet 0 ALPRAZolam 0.5 mg Oral [...] medications for this encounter. OBJECTIVE Pain Location: 06/12/2022 B feet At most 6/10 At least 2/10 Current 2/10 Tenderness Left Ankle/Foot Tenderness in the medial calcaneus and plantar fascia. Right Ankle/Foot Tenderness in the medial calcaneus and plantar fascia. Neurological Testing Sensation Ankle/Foot Left Ankle/Foot Intact: light touch Right Ankle/Foot Intact: light touch Active Range of Motion Left Ankle/Foot Dorsiflexion (ke): 0 degrees Dorsiflexion (kf): 0 degrees Plantar flexion: 50 degrees Inversion: 18 degrees Eversion: 10 degrees Right Ankle/Foot Dorsiflexion (ke): 0 degrees Dorsiflexion (kf): 3 degrees Plantar flexion: 50 degrees Inversion: 15 degrees Eversion: 10 degrees Strength/Myotome Testing Left Ankle/Foot Dorsiflexion: 5 Plantar flexion: 4- Inversion: 5 Eversion: 5 Right Ankle/Foot Dorsiflexion: 5 Plantar flexion: 4- Inversion: 5 Eversion: 5 Ambulation Observational Gait Gait: antalgic Left foot contact pattern: foot flat Right foot contact pattern: foot flat Physiological factors affecting the patient's clinical presentation include pain, and are stable & uncomplicated Functional Outcome Scales Flowsheet Row Evaluation from 06/12/2022 in [facility] Outpatient Rehab Evaluation from 11/21/2020in [facility] Evaluation from 12/27/2019 in [facility] Lower Extremity % of Maximum Function 42.5 71 54 Treatment performed today: OUTPATIENT PHYSICAL THERAPY TREATMENT NOTE Date of Service: 06/12/2022 Treatment Start Time: 1435 Referral Status: Authorized - Covered Benefit Plan of Care Visits: of (Expiration Date: 09/10/22) Authorized Visits: (Expiration Date: 09/10/2022) ASSESSMENT See eval PLAN Continue stretching to gastroc/soleus, strengthening to BLE, with manual therapy and modalities as needed for pain control. OBJECTIVE Patient Education: Daily habits;Home exercise program handout;Pathology;Rehabilitation process;Proper posture and body mechanics Treatment: Other Treatment: Daily Living Skills: Discussed current stretching and exercise regime and variations/alternatives to current program. Educated pt on anatomy of the foot, pathology of plantar fasciitis and expected rehab process and outcomes. All questions were answered and pt verbalized understanding. Therapeutic Exercises Therapeutic Exercises: 3 Exercise #1: Seated towel scrunch x 10 Exercise #2: seated alphabet x 10 Today's Treatment Total Tx Time (minutes): 25 Timed Code Tx (minutes): 25 Therapeutic Exercise (Minutes): 10 Daily living skills ([address]): 15 1:1 Direct Physical Therapist Contact: Yes Other Charges Charge ID Procedure Code Description Qty. Modifiers Golf Course Superintendent User Diagnosis [id number] [facility] PT INIT EVAL LOW 1 Marisol Morales, PT [id number] [facility] PT IND DAILY ED SKILLS 15 MIN 1 Marisol Morales, PT [id number] [facility] PT EXERCISE 15 MIN 1 Marisol Morales, PT Signed by: Marisol Morales PT documented in this encounter Plan of Treatment Scheduled Orders Name Type Priority Associated Diagnoses Orde r Schedule Outpatient Physical Therapy Evaluate and Treat Rehabilitation Routine Plantar fasciitis 1 Occurrences starting 06/12/2022 until 06/12/2022 documented as of this encounter Visit Diagnoses Diagnosis Plantar fasciitis Plantar fascial fibromatosis documented in this encounter Care Teams Tube Puller Relationship Specialty Start Date End Date Ben Brown III, MD [address] [place] [phone] PCP - General Family Medicine 10/28/21 documented as of this encounter
--- OUTSIDE RECORDS SUMMARY | 2024-03-31 04:08 | XMS_ITS | Encounter Summary ---
Author Organization [facility] Address [address] [place] [address] Care Team Providers Care Fork Repairer Name Role Phone Shara LEWIS MD, Ben Webb Primary Care Provider + Reason for Visit * Referral (Routine) - Closed Specialty Diagnoses / Procedures Referred By Tram griffin Referred To Contact Rehabilitation Diagnoses Pain, joint, knee, left Left lateral epicondylitis Chondromalacia of left patella Muscle weakness (generalized) Procedures Outpatient Physical Therapy Evaluate and Treat Ben Olmedo III, MD [address] [place] [phone] [facility] Op Physical Therapy [phone] [facility] [place] [address] Referral ID Status Reason Start Date Expiration Date Visits Re quested Visits Authorized [id number] Closed 07/08/2022 10/06/2022 10 10 Encounter Details Date Type Department Care Team (Latest Contact Info) Description 07/29/2022 2:00 PM HST - 07/30/2022 11:59 PM HST Hospital Encounter [facility] [phone] [facility] [place] [address] Marisol Morales, PT Discharge Disposition: [...] - Moderate. 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 He would benefit from continued skilled PT intervention to address these concerns and facilitate maximal functional outcome. PLAN Continue stretching to L hamstrings, strengthening to LLE, with manual therap/modalities as needed for pain control. SUBJECTIVE Pt states that his posterior knee was sore for the next 2 days after using the NuStep machine. Pt went walking <1 mile yesterday and it was ok but reports that he has constant pain. He rates hispain as 2/10 currently. OBJECTIVE Patient Education: Daily habits;Review Home exercise program;Pathology;Proper posture and body mechanics;Rehabilitation process Treatment: Manual Therapy: STM L hamstring, [...] Charge ID Procedure Code Description Qty. Modifiers Composition Weatherboard Applier User Diagnosis [id number] [facility] PT EXERCISE 15 MIN 2 Marisol Morales PT [id number] [facility] PT MANUAL THERAPY 15 MIN 1 Marisol Morales PT Signed by: Marisol Morales PT 1:1 Direct Physical Therapist Contact: Yes documented in this encounter Plan of Treatment Not on file documented as of this encounter Visit Diagnoses Not on filedocumented in this encounter Care Teams Fork Repairer Relationship Specialty Start Date End Date Ben Olmedo III, MD [address] [place] [address] PCP - General Family Medicine 10/28/21 documented as of this encounter
--- OUTSIDE RECORDS SUMMARY | 2024-03-31 04:08 | XMS_ITS | Encounter Summary ---
Author Organization [facility] Address [address] [place] [address] Care Team Providers Care Bog Cutter Name Role Phone Collin Aburto MD Primary Care Provider [phone] Encounter Details Date Type Department Care Team (Late st Contact Info) Description 12/03/2018 Results Only [facility] [phone] Chavo Busby MD [address] [place] [address] [place], [place] [phone] Social History Tobacco Use Types Packs/Day Years [...] Date/Time Associated Diagnosis Comments SURGICAL PATHOLOGY Routine 12/03/2018 6:48 EDT documented in this encounter Results * SURGICAL PATHOLOGY (12/03/2018 6:48 EDT) Pathology Report: SURGICAL PATHOLOGY REPORT Reports generated via electronic interface contain original data; however they are lacking the format of the original report. Caution should be taken when reading/interpret ing unformatted reports. Name: ? MADAN DENNIS ? Accession #: ? [id number] ? : ? 1945 (Age: 73) ??M ? Collect Date: ? 12/03/2018 ? Location: ? [facility] ? Receive Date: ? 12/03/2018 ? Provider: CHAVO BUSBY MD Copy to: COLLIN ABURTO MD ? Final Pathologic Diagnosis: SKIN OF TEMPORAL REGION, RIGHT, EXCISION: - Follicular cyst, infundibular type. Document reviewed and electronically signed by: VERÓNICA MATA MD Report ??Date: 12/07/2018 12:55 By the signature above, the attending physician certifies that he/she has personally conducted a gross and/or microscopic examination of the described specimens and rendered or confirmed the above diagnosis. Specimen(s) Received: Right temporal sebaceous cyst Clinical History: Rt temporal sebaceous cyst Gross Description: ? Received in formalin labelled with proper patient identification (initials D, J) and right temporal sebaceous cyst is a focally disrupted cyst (1.1 x 0.7 x 0.5 cm). The specimen is bisected to reveal haynes sebaceous material. The specimen is entirely submitted in 1. BELA Peter (ASCP) 12/06/2018 7:31 AM End of Report [facility] 12/03/2018 6:48 EDT 12/03/2018 6:48 EDT Chavo Busby MD PATHOLOGY [facility] [address] [place] [address] documented in this encounter Visit Diagnoses Not on filedocumented in this encounter Care Teams Bog Cutter Relationship Specialty Start Date End Date Collin Aburto MD [address] [place] [id number] PCP - General 01/28/11 documented as of this encounter
--- OUTSIDE RECORDS SUMMARY | 2024-03-31 04:08 | XMS_ITS | Encounter Summary ---
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 [address] [place] [address] Referral ID Status Reason Start Date Expiration Date Visits Requested Visits Authorized [id number] Authorization Not Required 1 1 Encounter Details Date Type Department Care Team (Late st Contact Info) Description 07/31/2023 13:00 EST Office Visit [facility] [place] [place] Orthopedics & Podiatry [address] [place], [place] [address] Nomi Nix DPM [address] [facility] [address] [place], [place] [address] Bilateral foot pain (Primary Dx) Social History Tobacco Use Types [...] as of this encounter Progress Notes * Nomi Nix II, DPM - 07/31/2023 1300 EST CHIEF COMPLAINT: Chief Complaint Patient presents with ??? Left Foot - New Patient Visit ??? Right Foot - New Patient Visit SUBJECTIVE: Jens Ayala is a 78 y.o. male who presents as a new patient for evaluation of foot painbilaterally. He was seeing another press technician previously however he is following up for continuation of care here. He has pain in his arches bilaterally. He has been told he has flat feet in the pastand is concerned with the pain in his arches stemming from this. Denies any trauma. Denies other pedal complaints. I reviewed the patients problem list, social history, allergies, medications, family history of surgical history. See scanned document. ROS: Constitutional: negative for, fever OBJECTIVE: There were no vitals taken for this visit. Gen: A+Ox3, NAD. Pleasant Vascular: Dorsalis pedis and posterior pulses diminished, CFT delayed to all digits, TG warm to warm within normal limits. moderate Edema present Neurological: protective sensation diminished Dermatological: negative erythema, negative ecchymosis, no open lesions, no clinical signs of infection present, varicosities present bilaterally. Musculoskeletal: pain with palpation of the navicular tuberosity and posterior tibial tendon bilaterally. Single heel rise and double heel rise produces pain in medial ankle. Pes planus bilaterally. ASSESSMENT/PLAN: 1. Bilateral foot pain I spoke with Jens today regarding his bilateral foot pain. Clinically his diagnosis is a pes planuswith a symptomatic posterior tibial tendon dysfunction. I recommended OTC orthotics, supportive shoegear, and physical therapy. Recommendations and exercises provided for him today. He is willing to try these. He will follow up as needed in the future. Jens will return to clinic in as needed to re-evaluate the current treatment plan and assess treatment progress. Thank you for allowing me to be a part of your treatment today I spent a total of 30 minutes on the date of this encounter meeting with the patient and reviewing documentation/coordinating care as described in the above note. No procedures were performed at the time of the visit. This note was prepared using voice recognition software and the EMR. There may be inadvertent errors and omissions. Nomi Nix DPM 07/31/2023 documented in this encounter Plan of Treatment Not on file documented as of this encounter Visit Diagnoses Diagnosis Bilateral foot pain- Primary Pain in limb documented in this encounter Care Teams Artist And Repertoire Manager Relationship Specialty Start Date End Date Collin Aburto MD [address] [place] [address] PCP - General 01/28/11 documented as of this encounter
--- OUTSIDE RECORDS SUMMARY | 2024-03-31 04:09 | XMS_ITS | Encounter Summary ---
Author Organization [facility] Address [address] [place] [address] Care Team Providers Care Entrepreneurship Program Director Name Role Phone Shara LEWIS MD, Ben Webb Primary Care Provider + Encounter Details Date Type Department Care Team (Late st Contact Info) Description 01/15/2022 11:30 AM HST Telehealth [facility] [address] [place] [address] Bernie England MD [address] [place] [address] Restless leg syndrome (Primary Dx) Social History Tobacco Use Types [...] suspected to have Coronavirus/COVID-19? No / Unsure 01/09/2022 7:09 AM HST documented as of this encounter Patient Instructions * Patient Instructions* Bernie England MD - 01/15/2022 11:50 AM HST Return to clinic in ~2 weeks after pending spinal fluid testing has resulted. Get your blood drawn before next visit. [facility] Information: Results: If you have completed any imaging, labs, or other neurological testing, I will always go over your results with you at your follow up visit. If you would like to access your results prior to that, please sign up for My Chart access at home. New Medications and Refills: I recommend that you call the pharmacy before picking up any medications that were called in or electronically faxed during your office visit in order to verify that your prescription was received and that it is ready for cotton picker. Medication Side Effects/Reactions: Stop taking your medication if you are concerned that you may be having an allergic reaction or if you are having significant side effects. Please call the office WAQAR or send me a Ti Knight message tolet me know that you are having problems with the medication. Contact: The best way to contact me is via the Wellcoinaging system. You can also contact me by calling our office at [phone]. Thank you for giving us the privilege of caring for you today! documented in this encounter Progress Notes * Bernie England MD - 01/15/2022 11:30 AM HST [facility] Telehealth Home Visit I performed a telemedicine visit using real-time, synchronous, two-way audiovisual teleconferencingtechnology. I personally interviewed and examined the patient and determined the plan of care. Originating Site: home visit Receiving Site: [facility] Patient: Jens Ayala : 1945 Date of service: 01/14/2022 Neurologic Summary: Jens Ayala is a 76 [...] for urinary retention. He has presented to [place] emergency department multiple times in the last few weeks due to ongoing symptoms. He is followed by urology with plans for prostate surgery once he has completed neurologic workup. There is concern for prostate cancer given elevated PSA. Interval history: Patient last seen 11/2021. Since then, patient has had multiple ED visits for urinary symptoms including UTI and paulson management. He underwent prostate surgery last month and biopsy reportedly demonstrated pre-cancer though I do not have these records. He underwent LP and tolerated it well. He denies new neurologic symptoms. Patient with longstanding RLS symptoms; he uses hydrocodone as needed. Neuro Symptoms: Motor: denies weakness Sensory: +R [...] currently Bladder: as above Bowel: chronic constipation Review of systems: A 12-point review of [...] and does not use drugs. -Lives in [place] with , retired, originally from [place], moved to [place] in 1980s Allergies: No Known Allergies Medications: [...] 207 -> 7 Glucose 59 IgG index pending OCB pending Serum 11/2021: JUJU, SS-A/B, RPR, HIV, TSH, [...] history of MS in first degree relative. Discussed with patient that if pending workup is consistent with multiple sclerosis, we will have further discussion on utility of disease modifying therapy given older age and benign course. Of note, patient reasonably expresses some degree of frustration over pending CSF studies. I sharedthat I unfortunately do not have control over when studies return but will see patient once resultsreturn to discuss next steps. - Return to clinic after CSF IgG index and OCBs return to review results and discuss next steps, ~2weeks # Restless leg syndrome: ideally would like to wean off hydrocodone and if necessary can utilize alternative pharmacotherapy if needed in future - Check ferritin level, if low will start supplementation The patient was referred to me for multiple sclerosis. I have subspecialty training in multiple sclerosis and neuroimmunology. The total amount of minutes spent on care of this patient on the day of the visit is 22 including: review of patient's chart, discussion with patient and/or family members and/or other healthcare team members, review of data, coordination of care and time spent completing charting/documentation. Bernie England MD [facility] Multiple Sclerosis [facility] Neuro[facility] documented in this encounter Plan of Treatment Scheduled Orders Name Type Priority Associated Diagnoses Orde r Schedule Ferritin Lab Routine Restless leg syndrome Expected: 01/15/2022, Expires: 01/15/2023 documented as of this encounter Visit Diagnoses Diagnosis Restless leg syndrome- Primary Restless legs syndrome (RLS) documented in this encounter Care Teams Entrepreneurship Program Director Relationship Specialty Start Date End Date Ben Olmedo III, MD [address] [place] [address] PCP - General Family Medicine 10/28/21 documented as of this encounter
--- OUTSIDE RECORDS SUMMARY | 2024-03-31 04:09 | XMS_ITS | Encounter Summary ---
Author Organization [facility] Address [address] [place] [address] Care Team Providers Care Bricklayer'S Assistant Name Role Phone Shara LEWIS MD, Ben Webb Primary Care Provider + Encounter Details Date Type Department Care Team (Late st Contact Info) Description 11/04/2021 Orders Only [facility] [id number] [facility] [address] [facility] [address] [facility] [place] [phone] Indira Loomis Left knee pain, unspecified chronicity (Primary Dx) Social History Tobacco Use Types Packs/Day Years Used Date Smoking Tobacco: Never Smokeless Tobacco: Never Alcohol Use Standard Drinks/Week Comments No 0 (1 standard drink = 0.6 oz pur e alcohol) Hunger Vital Sign Answer Date Recorded Within the past 12 months, y ou worried that your food would run out before you got the money to buy more. Never true 11/07/19 22 Within the past 12 months, t he food you bought just didn't last and you didn't have money to get more. Never true 11/06/2021 Sex and Gender Information Value Date Recorded Sex Assigned at Not on file Gender Identity Not on file Sexual Orientation Not on file Job Start Date Occupation Industry Not on file Not on file Not on file COVID-19 Exposure Response Date Recorded In the last month, have you been in contact with someone who was confirmed or suspected to have Coronavirus / COVID-19? No / Unsure 11/06/2021 5:26 PM HST documented as of this encounter Plan of Treatment Not on file documented as of this encounter Results * XRAY - KNEE (AP, LAT, NOTCH & MERCHANT) (11/04/2021 9:26 AM HST) Anatomical Region Laterality Modality Knee Computed Radiogr aphy Impressions 11/04/2021 12:27 PM HST Left knee x-rays negative for acute pathology including fracture or dislocation. ??He has mild patellofemoral degenerative change. ?? Small spur over the quadriceps tendon insertion. ??No soft tissue change. INDICATION: Chronic left knee pain. XRAYS: Left knee x-ray series as above. INTERPRETATION: Left knee x-rays negative for acute pathology including fracture or dislocation. ??He has mild patellofemoral degenerative change. ?? Small spur over the quadriceps tendon insertion. ??No soft tissue change. Narrative 11/04/2021 12:27 PM HST [facility] - Orthopedic Radiology Report Zbigniew Saavedra MD XRAY-ORDERABLE documented in this encounter Visit Diagnoses Diagnosis Left knee pain, unspecified chronicity- Primary Left knee pain, unspecified chronicity documented in this encounter Care Teams Bricklayer'S Assistant Relationship Specialty Start Date End Date Ben Olmedo III, MD [address] [place] [phone] PCP - General Family Medicine 10/28/21 documented as of this encounter
--- OUTSIDE RECORDS SUMMARY | 2024-03-31 04:09 | XMS_ITS | Encounter Summary ---
Author Organization [facility] Address [address] [place] [address] Care Team Providers Care Splitter Machine Name Role Phone Shara LEWIS MD, Ben Webb Primary Care Provider + Encounter Details Date Type Department Care Team (Late st Contact Info) Description 11/04/2021 9:30 AM HST Ancillary Procedure [facility] [id number] [facility] [address] [place] [address] [place]avedra [place] [id number] [facility] [address] [place] [address] Left knee pain, unspecified chronicity Discharge Disposition: D/C Home, Self Care Social [...] the money to buy more. Never true 11/05/19 22 Within the past 12 months, t he food you bought just didn't last and you didn't have money to get more. Never true 11/04/2021 Sex and Gender Information Value Date Recorded [...] have Coronavirus / COVID-19? No / Unsure 11/04/2021 2:05 PM HST documented as of this encounter Plan of Treatment Not on file documented as of this encounter Procedures Procedure Name Priority Date/Time Associated Diagnosis Comments XRAY - KNEE (AP, LAT, NOTCH & MERCHANT) Routine 11/04/2021 9:26 AM HST Left knee pain, unspecified chronicity documented in this encounter Results * XRAY - KNEE [...] tissue change. Narrative 11/04/2021 12:27 PM HST [facility] - Orthopedic Radiology Report Zbigniew Saavedra MD XRAY-ORDERABLE documented in this encounter Visit Diagnoses Diagnosis Left knee pain, unspecified chronicity documented in this encounter Care Teams Splitter Machine Relationship Specialty Start Date End Date Ben Olmedo III, MD [address] [place] [phone] PCP - General Family Medicine 10/28/21 documented as of this encounter
--- OUTSIDE RECORDS SUMMARY | 2024-03-31 04:09 | XMS_ITS | Encounter Summary ---
Author Organization [facility] Address [address] [place] [address] Care Team Providers Care System Support Specialist Name Role Phone Shara LEWIS MD, Ben Webb Primary Care Provider + Reason for Referral * Imaging (Routine) - Closed Specialty Diagnoses / Procedures Referred By Contac t Referred To Contact Diagnoses White matter disease Procedures MRI - THORACIC SPINE WITHOUT AND WITH IV CONTRAST Bernie England MD [address] [address] Referral ID Status Reason Start Date Expiration Date Visits Re quested Visits Authorized [id number] Closed 12/11/2021 1 1 Reason for Visit * Imaging (Routine) - Closed Specialty Diagnoses / Procedures Referred By Contac t Referred To Contact Diagnoses White matter disease Procedures MRI - THORACIC SPINE WITHOUT AND WITH IV CONTRAST Bernie England MD [address] [address] Referral ID Status Reason Start Date Expiration Date Visits Re quested Visits Authorized [id number] Closed 12/11/2021 1 1 Encounter Details Date Type Department Care Team (Late st Contact Info) Description 12/19/2021 2:55 PM HST - 12/19/2021 11:59 PM HST Hospital Encounter [facility] MRI [id number] [facility] [place] [address] Bernie England MD [address] [address] Discharge Disposition: D/C Home, Self Care Social [...] suspected to have Coronavirus/COVID-19? No / Unsure 12/15/2021 1:16 AM HST documented as of this encounter Medications at Time of Discharge Medication Sig Dispensed Refills Start Date End Date HYDROcodone/acetaminophe n 5-325 mg Oral Tablet Take 1 Tablet by mouth every 6 hours as needed for Pain - Moderate. Do not drive or operate Fan[employer]ary 6 Tablet 12/15/2021 eszopiclone (LUNESTA) 3 mg Oral Tablet Take 3 mg by mouth at bedtime as needed for Sleep. ATORVASTATIN CALCIUM (ATORVASTATIN PO) Take by mouth. amitriptyline 100 mg Oral Tablet Take 100 mg by mouth at bedtime. nitrofurantoin monohydrate/nitrofuranto in macrocrystals (Macrobid) 100 mg Oral Capsule Take 1 Capsule by mouth 2 times a day with meals for 14 days. 28 Each 12/09/2021 12/23/2021 documented as of this encounter Plan of Treatment Not on file documented as of this encounter Procedures Procedure Name Priority Date/Time Associated Diagnosis Comments MRI - THORACIC SPINE WITHOUT AND WITH IV CONTRAST Routine 12/19/2021 5:08 PM HST White matter disease documented in this encounter Results * MRI - THORACIC SPINE WITHOUT AND WITH IV CONTRAST (12/19/2021 5:08 PM HST) Anatomical Region Laterality Modality Tspine Magnetic Resonan ce 12/19/2021 4:49 PM HST Impressions 12/20/2021 10:39 AM HST IMPRESSION: 1. ??MILD MULTILEVEL DEGENERATIVE CHANGES WITHOUT RESULTING SPINAL CANAL/NEURAL FORAMINAL NARROWING. 2. ??NO INTRAMEDULLARY CORD SIGNAL ABNORMALITY OR ENHANCEMENT TO INDICATE PRIOR/ACTIVE DEMYELINATION. THANK YOU FOR THE REFERRAL. 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 FINDINGS: Image quality is mildly and moderately degraded by motion artifact. Exaggerated thoracic kyphosis without significant listhesis. T1 and T2 hyperintense benign vertebral hemangiomata are noted, most prominently and T6. No focal aggressive marrow lesion or evidence of fracture. No epidural fluid collection or enhancing mass/material. No abnormal meningeal enhancement. Spinal cord is normal in signal and contour. No intramedullary enhancing lesion is detected, given motion artifact. Mild multilevel disc degeneration. No significant spinal canal or neural foraminal narrowing is observed. Paraspinal muscles and ligaments are normal in signal and contour. Intrathoracic and upper abdominal structures are not visualized well enough to be characterized in detail. 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 FINDINGS: Image quality is mildly and moderately degraded by motionartifact. Exaggerated thoracic kyphosis without significant listhesis. T1 and T2 hyperintensebenign vertebral hemangiomata are noted, most prominently and T6. No focal aggressivemarrow lesion or evidence of fracture. No epidural fluid collection or enhancing mass/material. Noabnormal meningeal enhancement. Spinal cord is normal in signal and contour. Nointramedullary enhancing lesion is detected, given motion artifact. Mild multilevel disc degeneration. Nosignificant spinal canal or neural foraminal narrowing is observed. Paraspinal muscles andligaments are normal in signal and contour. Intrathoracic and upper abdominal structures are notvisualized well enough to be characterized in detail. IMPRESSION: IMPRESSION: 1. MILD MULTILEVEL DEGENERATIVE CHANGES WITHOUT RESULTING SPINALCANAL/NEURAL FORAMINAL NARROWING. 2. NO INTRAMEDULLARY CORD SIGNAL ABNORMALITY OR ENHANCEMENT TO INDICATEPRIOR/ACTIVE DEMYELINATION. THANK YOU FOR THE REFERRAL. ELECTRONICALLY SIGNED BY: GIOVANY SEGOVIA WORKSTATION ID: [id number] Bernie England MD MRI-ORDERABLE documented in this encounter Visit Diagnoses Diagnosis White matter disease Other conditions of brain documented in this encounter Administered Medications Inactive Administered Medications - up to 3 most recent administrations Medication Order MAR Action Action Date Dose Rate Site gadobutroL (GADAVIST) 7.5 mmol/7.5 mL (1 mmol/mL) Inj 7 mL 7 mmol (7 mL), IV Bolus, ONCE, 1 dose, On Naomy 12/19/21 at 1556, Routine, Administer by IV bolus injection at a flow rate of approximately 2 mL/sec. Flush IV cannula with NS after injection. (Avoid IM administration.)Discard any unused remaining portion. Do not mix with other drugs. Given 12/19/2021 4:48 PM HST 7 mmol documented in this encounter Care Teams System Support Specialist Relationship Specialty Start Date End Date Ben Olmedo III, MD [address] [place] [phone] PCP - General Family Medicine 10/28/21 documented as of this encounter
--- OUTSIDE RECORDS SUMMARY | 2024-03-31 04:09 | XMS_ITS | Encounter Summary ---
Author Organization [facility] Address [address] [place] [address] Care Team Providers Care Stuffed Casing Tier Name Role Phone Shara LEWIS MD, Ben W Primary Care Provider + Reason for Visit * Reason Comments Knee Pain XRAY:9:30 left Knee Pain Referred by Dr. Olmedo MRI [facility]06[facility] Encounter Details Date Type Department Care Team (Late st Contact Info) Description 11/04/2021 10:00 AM HST Office Visit [facility] [phone] [facility] [address] [place] [address] Zbigniew Saavedra MD [phone] [facility] [address] [place] [phone] Left elbow pain (Primary Dx); Right elbow pain; Chronic pain of left knee; Chondromalacia, patella, left Discharge Disposition: D/C Home, Self Care Social [...] have Coronavirus / COVID-19? No / Unsure 11/03/2021 8:24 AM HST documented as of this encounter Last Filed Vital Signs Vital Sign Reading Time Taken Comments Blood Pressure 125/78 11/04/2021 9:45 AM HST Pulse 88 11/04/2021 9:45 AM HST Temperature 36.4 ??C (97.5 ??F) 11/04/2021 9:45 AM HS T Respiratory Rate 18 11/04/2021 9:45 AM HST Oxygen Saturation 98% 11/04/2021 9:45 AM HST Inhaled Oxygen Concentration - - Weight 70.7 kg (155 lb 14.4 oz) 11/04/2021 9:45 AM HST Height 182.9 cm (6') 11/04/2021 9:45 AM HST Body Mass Index 21.14 11/04/2021 9:45 AM HST documented in this encounter Progress Notes * Zbigniew Saavedra MD - 11/04/2021 10:00 AM HST CLINIC NOTE Chief Complaint: Chief Complaint Patient presents with ??? Knee Pain XRAY:9:30 left Knee Pain Referred by Dr. Olmedo MRI [facility]/06/[facility] Subjective: Jens Ayala is a 76 year old male who had concerns including Knee Pain (XRAY:9:30 left Knee Pain Referred by Dr. Olmedo MRI 01/06/2020 [facility]).. Patient presents for newcomplaint involving his left knee. The patient states he has had longstanding difficulty with knee pain. The majority the pain is in the popliteal and posterior lateral knee. No specific injury or overuse. No inflammatory arthritis history. The patient tends to keep pillows underneath the knee for comfort. He does have a chronic back condition but currently no classic radiculopathy or neurologic decline. No circulatory change. No mechanical symptoms or instability. He notes pain after sitting. He is recently developed a notable urologic condition and is using a Mathew bag. He is also had a notable weight loss without attempt. He is scheduled for urology consultation to address this. With therelative rest his knee pain has improved. He presents for initial orthopedic evaluation treatment re commendations. No Known Allergies Past Medical History: Diagnosis Date ??? Kidney disease BPH ??? Pure hypercholesterolemia ??? Restless leg syndrome ??? Sleep disorder Past Surgical History: Procedure Laterality Date ??? HX KIDNEY/BLADDER/PROSTATE SURGERY prostate surgery ??? HX ORTHOPEDIC SURGERY Right 2009 [place] Family History Problem Relation Age of Onset ??? Muscular dystrophy Mother ??? Kidney Disease Father ??? Heart Disease Father ??? Cancer Maternal Grandfather ??? Cancer Sister Social History Socioeconomic History ??? Marital status: Single Tobacco Use ??? Smoking status: Never Smoker ??? Smokeless tobacco: Never Used Substance and Sexual Activity ??? Alcohol use: No ??? Drug use: No Social Determinants of Health Food Insecurity: No Food Insecurity ??? Worried About Running Out of Food in the Last Year: Never true ??? Ran Out of Food in the Last Year: Never true OB History No obstetric history on file. Outpatient Encounter Medications as of 11/04/2021 Medication Sig Dispense Refill ??? HYDROcodone/acetaminophen 5-325 mg Oral Tablet Take 1 Tablet by mouth every 6 hours as needed for Pain. ??? ALPRAZolam 0.5 mg Oral Tablet Take 0.5 mg by mouth 2 times a day. ??? escitalopram oxalate 10 mg Oral Tablet Take 10 mg by mouth every morning. ??? phenazopyridine (Pyridium) 200 mg Oral Tablet Take 1 Tablet by mouth 3 times a day as needed for Dysuria. 10 Tablet 0 ??? eszopiclone (LUNESTA) 3 mg Oral Tablet Take 3 mg by mouth at bedtime as needed for Sleep. ??? ATORVASTATIN CALCIUM (ATORVASTATIN PO) Take by mouth. ??? tamsulosin 0.4 mg Oral Capsule, Sustained Release 24HR Take 0.4 mg by mouth at bedtime. ??? amitriptyline 100 mg Oral Tablet Take 100 mg by mouth at bedtime. No facility-administered encounter medications on file as of 11/04/2021. Review of Systems: The patient's complete review of systems was obtained on the initial intake form. Please see the separate document which was reviewed. Pertinent review of systems are included in the history of present illness along with the musculoskeletal complaints. Remaining review of systems listed are unremarkable or unrelated to the patient's present orthopedic complaint. Objective: BP 125/78 (Taken On: Lt upper arm, Patient Position: Sitting, Cuff size: regular) Pulse 88 Temp36.4 ??C (97.5 ??F) (Infrared) Resp 18 Ht 182.9 cm (6') Wt 70.7 kg (155 lb 14.4 oz) SpO2 98% BMI 21.14 kg/m?? Physical Examination: (If abnormal, please describe) GENERAL: Appears well-developed and well-nourished and appears in no acute distress. PSYCH: Patient's mental status and affect are grossly clinically normal. SKIN: Skin around the entire left knee region intact and benign. No bursitis. VASCULAR: No clinical signs of DVT. Adequate pulse. NEURO: Gross motor and sensory intact. ORTHO: Exam shows no effusion or soft tissue swelling. His extensor mechanism is intact. Alignment is symmetrical valgus. He resists full extension. Flexibility testing both hamstring and calf musculature is poorly tolerated. There is no Barker's cyst or popliteal mass. Minimal focal tenderness overthe popliteus or lateral hamstring tendons. MCL intact. ACL intact. No focal joint line tenderness.Meniscal signs are absent. There is slight crepitation with terminal extension but minimal apprehension. No focal retinacular tenderness. Logroll is well-tolerated. No knee pain with hip examination. Testing: X-rays were ordered and personally reviewed. XRAY - KNEE (AP, LAT, NOTCH & MERCHANT) Result Date: 11/04/2021 [facility] - Orthopedic Radiology Report Left knee x-rays negative for acute pathology including fracture or dislocation. He has mild patellofemoral degenerative change. Small spur over the quadriceps tendon insertion. No soft tissue change. INDICATION: Chronic left knee pain. XRAYS: Left knee x-ray series as above. INTERPRETATION: Left knee x-rays negative for acute pathology including fracture or dislocation. He has mild patellofemoral degenerative change. Small spur over the quadriceps tendon insertion. No soft tissue change. Patient also had an MRI of his knee remotely back in January 06, 2020. This showed mild patellofemoral degenerative change with a very trace effusion. There is some medial meniscal degeneration without tear but study was otherwise unremarkable. Assessment: 1. Left elbow pain 2. Right elbow pain XRAY - ELBOW 3V (AP, LATERAL & OBLIQUE) 3. Chronic pain of left knee 4. Chondromalacia, patella, left Chronic left knee pain possibly due to chondromalacia patella. He may have some chronic hamstring insertional tendinitis. His poor flexibility could be related to a low back condition given his chronic pain. By MRI December 2019 and clinical exam today meniscal pathology is less likely. Plan: On today's evaluation we discussed simple treatment options. I advocated using heat before stretching we discussed modification of stretching techniques. We discussed the concept of relative rest and lower impact exercise. Given the time interval from his previous MRI this may be reasonable to repeat to see if there is any change that is developed. Currently his urology condition sounds much more of a priority and he will do these simple conservative measures during this time. We did review symptomatic treat modalities and I will defer all medications to his primary care provider. I would hold off on cortisone injection as we do not have evidence of an advanced degenerative condition.We will see how his urology work-up goes and he will call me for further treatment needs based on that. He also has some chronic elbow complaints and we will set up an appointment to address this. No orders of the defined types were placed in this encounter. Follow-up and Disposition ?? Return if symptoms worsen or fail to improve, for May set up appointment for chronic right elbowpain, new problem. Zbigniew Saavedra MD documented in this encounter Plan of Treatment Scheduled Orders Name Type Priority Associated Diagnoses Orde r Schedule XRAY - ELBOW 3V (AP, LATERAL & OBLIQUE) Imaging Routine Right elbow pain Expected: 11/04/2021, Expires: 11/04/2022 documented as of this encounter Visit Diagnoses Diagnosis Left elbow pain- Primary Pain in joint, upper arm Right elbow pain Pain in joint, upper arm Chronic pain of left knee Pain in joint, lower leg Chondromalacia, patella, left documented in this encounter Care Teams Stuffed Casing Tier Relationship Specialty Start Date End Date Ben Olmedo III, MD [address] [place] [phone] PCP - General Family Medicine 10/28/21 documented as of this encounter
--- OUTSIDE RECORDS SUMMARY | 2024-03-31 04:09 | XMS_ITS | Encounter Summary ---
Author Organization [facility] Address [address] [place] [address] Care Team Providers Care Tobacco Cloth Reclaimer Name Role Phone Shara LEWIS MD, Ben Webb Primary Care Provider + Reason for Visit * Reason Comments Tube replacement Patient states he lopez s leak in catheter ~30 minutes ago. Encounter Details Date Type Department Care Team (Late st Contact Info) Description 11/04/2021 2:04 PM HST - 11/04/2021 5:21 PM HST Emergency [facility] [id number] [facility] [place] [address] Venu Whyte [id number] [facility] [place] [id number] Discharge Disposition: D/C Home, Self Care Social [...] Sign Reading Time Taken Comments Blood Pressure 125/79 11/04/2021 5:00 PM HST Pulse 78 11/04/2021 5:00 PM HST Temperature 37 ??C (98.6 ??F) 11/04/2021 2:06 PM HST Respiratory Rate 16 11/04/2021 4:01 PM HST Oxygen Saturation 94% 11/04/2021 5:00 PM HST Inhaled Oxygen Concentration - - Weight 70.8 kg (156 lb) 11/04/2021 2:06 PM HST Height 182.9 cm (6') 11/04/2021 2:06 PM HST Body Mass Index 21.16 11/04/2021 2:06 PM HST documented in this encounter Discharge Instructions * Attachments The following attachments cannot be sent through Care Everywhere. * Paulson Catheter Placement and Care (AfterCare(R) Instructions(ER/ED)) (Puerto Rican) * Catheter-associated Urinary Tract Infection (AfterCare(R) Instructions(ER/ED)) ([place]ican) documented in this encounter Medications at Time of Discharge Medication Sig Dispensed Refills Start Date End Date eszopiclone (LUNESTA) 3 mg Oral Tablet Take 3 mg by mouth at bedtime as needed for Sleep. ATORVASTATIN CALCIUM (ATORVASTATIN PO) Take by mouth. amitriptyline 100 mg Oral Tablet Take 100 mg by mouth at bedtime. trimethoprim/sulfametho xazole (Bactrim DS) 160/800 mg Oral Tablet Take 1 Tablet by mouth every 12 hours for 7 days. 14 Tablet 11/04/2021 11/11/2021 HYDROcodone/acetaminoph en 5-325 mg Oral Tablet Take 1 Tablet by mouth every 6 hours as needed for Pain. 12/15/2021 documented as of this encounter Nursing Notes * Carli Mckeon RN - 11/04/2021 3:00 PM HST 11/04/21 1500 SDOH Screening Who is answering the SDOH questions? Patient Food Insecurity Within the past 12 months, you worried that your food would run out before you got the money to buymore. Never true Within the past 12 months, the food you bought just didn???t last and you didn???t have money to get more. Never true Housing Insecurity What is your living situation today? I have a steady place to live documented in this encounter ED Notes * Lana De Leon RN - 11/04/2021 5:10 PM HST Jens Ayala was discharged from the Emergency Department ambulating, accompanied by no one. Patient/guardian verbalized understanding of all discharge instructions. Jens Ayala received: meds e-Prescribed to the patients pharmacy of record. Patient: was NOT given narcotics or sedatives during this ED visit. Pain level 0=no pain, awake, alert, oriented x 3 and walks with steady gait. BP 125/79 Pulse 78 Temp 37 ??C (98.6 ??F) (Temporal) Resp 16 Ht 182.9 cm (6') Wt 70.8 kg (156 lb) SpO2 94% BMI 21.16 kg/m?? The patient received the following medications during their ED encounter: Administrations This Visit cefTRIAXone 1 g/100 mL NS IVPB 1 g Admin Date 11/04/2021 Action Given Dose 1 g Route IV Piggyback Administered By Carli Mckeon RN lidocaine HCL 2 % gel Inj 10 mL Admin Date 11/04/2021 Action Given Dose 5 mL Route INTRA OP PER MD Administered By Carli Mckeon RN morphine inj 4 mg Admin Date 11/04/2021 Action Given Dose 4 mg Route Intravenous Administered By Carli Mckeon RN * Carli Mckeon RN - 11/04/2021 4:15 PM HST Irrigated catheter. [place] urine to clear. No clots visualized. * Carli Mckeon RN - 11/04/2021 3:05 PM HST 16fr paulson dc'd intact with small blood clot noted at tip blocking catheter. * Venu Whyte - 11/04/2021 2:20 PM HST 76 year old male [facility] [id number] ED Date of Service: 11/04/2021 Arrival time:2:00 PM Arrival mode: Car CC: Chief Complaint Patient presents with ??? Tube replacement Patient states he has leak in catheter ~30 minutes ago. HPI: 76 yo M PMH BPH s/p Greenlight procedure 5 years ago, HLD, RLS, seen in the ED daily for the past 3 days for urinary retention s/p paulson catheter insertion on 11/01 c/b recurrent retention and pain from clots. He presents today with worsening pain, leakage around the catheter, hematuria/clots, and decreased UOP. Patient is being scheduled for follow-up with Dr. Bethea next week. He denies fevers, flank pain, or other complaints. The history is provided by the patient and medical records. General complaint Severity: Moderate Onset quality: Gradual Duration: 4 days Timing: Constant Progression: Worsening Chronicity: New Associated symptoms: abdominal pain Associated symptoms: no chest pain, no cough, no fever, no nausea, no shortness of breath and no vomiting : History Medical History: Past Medical History: Diagnosis Date ??? Kidney disease BPH ??? Pure hypercholesterolemia ??? Restless leg syndrome ??? Sleep disorder No LMP for male patient. , unknown, Estimated Date of Delivery: None noted. There is no immunization history on file for this patient. Surgical History: Past Surgical History: Procedure Laterality Date ??? HX KIDNEY/BLADDER/PROSTATE SURGERY prostate surgery ??? HX ORTHOPEDIC SURGERY Right 2009 [employer] Meds: Prior to Admission Medications Prescriptions Last Dose Informant Patient Reported? Taking? HYDROcodone/acetaminophen 5-325 mg Oral Tablet Yes No Take 1 Tablet by mouth every 6 hours as needed for Pain. ALPRAZolam 0.5 mg Oral Tablet Yes No Take 0.5 mg by mouth 2 times a day. escitalopram oxalate 10 mg Oral Tablet Yes No Take 10 mg by mouth every morning. phenazopyridine (Pyridium) 200 mg Oral Tablet No No Take 1 Tablet by mouth 3 times a day as needed for Dysuria. eszopiclone (LUNESTA) 3 mg Oral Tablet Yes No Take 3 mg by mouth at bedtime as needed for Sleep. ATORVASTATIN CALCIUM (ATORVASTATIN PO) Yes No Take by mouth. tamsulosin 0.4 mg Oral Capsule, Sustained Release 24HR Yes No Take 0.4 mg by mouth at bedtime. amitriptyline 100 mg Oral Tablet Yes No Take 100 mg by mouth at bedtime. Allergies: Patient has no known allergies. Family History: Family History Problem Relation Age of Onset ??? Muscular dystrophy Mother ??? Kidney Disease Father ??? Heart Disease Father ??? Cancer Maternal Grandfather ??? Cancer Sister Social History: Social History Tobacco Use ??? Smoking status: Never Smoker ??? Smokeless tobacco: Never Used Substance Use Topics ??? Alcohol use: No Social History Substance and Sexual Activity Drug use: No Review of Systems Constitutional: Negative for chills and fever. Respiratory: Negative for cough and shortness of breath. Cardiovascular: Negative for chest pain. Gastrointestinal: Positive for abdominal pain. Negative for nausea and vomiting. Genitourinary: Positive for difficulty urinating and hematuria. Negative for flank pain. All other systems reviewed and are negative. Initial vital signs: BP: (!) 154/92, Pulse: 82, Resp: 16, Temp: 37 ??C (98.6 ??F), SpO2 (%): 97 %, Room Air/Liter Flow (LPM): Room air Most recent vital signs: BP: 148/76, Pulse: 78, Resp: 16, Temp: 37 ??C (98.6 ??F), SpO2 (%): 93 %, Room Air/Liter Flow (LPM): Room air Physical Exam Vitals and nursing note reviewed. Constitutional: Comments: Uncomfortable appearing HENT: Head: Normocephalic and atraumatic. Nose: Nose normal. Mouth/Throat: Mouth: Mucous membranes are moist. Eyes: Extraocular Movements: Extraocular movements intact. Cardiovascular: Rate and Rhythm: Normal rate and regular rhythm. Pulmonary: Effort: Pulmonary effort is normal. Breath sounds: Normal breath sounds. Abdominal: Palpations: Abdomen is soft. Tenderness: There is abdominal tenderness. Comments: Suprapubic tenderness/fullness Genitourinary: Comments: 16F paulson catheter in place with small amount of dark urine in leg bag Musculoskeletal: General: Normal range of motion. Cervical back: Normal range of motion and neck supple. Skin: General: Skin is warm and dry. Capillary Refill: Capillary refill takes less than 2 seconds. Neurological: Mental Status: He is alert and oriented to person, place, and time. Psychiatric: Mood and Affect: Mood normal. Procedures: Procedures Data Reviewed Consults: None Imaging: None Emergency Physician interpretation: None No results found for this visit on 11/04/21. Lab: Results for orders placed or performed during the hospital encounter of 11/04/21 1. Basic Metabolic Panel (Lytes,BUN,Cre,Gluc,Ca+) Result Value Glucose 112 (H) BUN 22 Creatinine 1.0 eGFR CKD-EPI Cr 2020 78 (L) Sodium 140 Potassium 4.4 Chloride 106 CO2 26 Anion Gap 12 (L) Calcium 9.1 2. CBC W/ Platelet Ct Result Value White Blood Count 6.02 Red Blood Cell Count 4.40 Hemoglobin 13.8 Hematocrit 40.8 MCV 92.7 MCH 31.4 MCHC 33.8 RDW 14.0 Platelet Count 183 Imm Granulocyte 0.2 Neutrophil 71.7 Lymphocyte 18.6 Monocyte 7.0 Eosinophil 2.0 Basophil 0.5 Abs Imm Granulo 0.01 Abs Neutrophils 4.32 Abs Lymphocytes 1.12 (L) 3. Urine Micro Only W/ Reflex to C&S Result Value Color ORANGE Appearance CLOUDY Microscopic RESULT WBC 6-20 (H) RBC >100 (H) Bacteria MANY (H) Urine Culture/Sensitivity REFER TO THE MICROBIOLOGY SECTION OF REPORT ED Course/Medical Decision Making: MDM Number of Diagnoses or Management Options Hematuria, unspecified type Obstruction of Paulson catheter, initial encounter ([facility]) Urinary tract infection associated with indwelling urethral catheter, initial encounter ([facility]) Diagnosis management comments: 76 yo M PMH BPH s/p Greenlight procedure 5 years ago, HLD, RLS, seenin the ED daily for the past 3 days for urinary retention s/p paulson catheter insertion on 11/01 c/b recurrent retention and pain from clots. VS with HTN. Exam reveals uncomfortable appearing male with suprapubic tenderness/fullness and paulson catheter in place with with small amount of dark urine in leg bag. DDx: paulson catheter obstruction, urinary retention, BPH, prostate or bladder malignancy, UTI, kidney disease. Will obtain labs, UA. 3-way paulson for bladder irrigation. Labs reassuring, UA concerning for possible UTI. Bladder irrigated with removal of small clots and no ongoing hematuria. Paulson replaced with larger size catheter. On re-evaluation, patient reports improvement in his symptoms. He will follow-up with Dr. Bethea for further work-up and management next week. Instructions and close return precautions were reviewed with the patient prior to discharge. The patient understood and was agreeable to this plan. Clinical Impression: Urinary tract infection associated with indwelling urethral catheter, initial encounter ([facility]) (primary encounter diagnosis) Hematuria, unspecified type Obstruction of paulson catheter, initial encounter ([facility]) Disposition: ED Dispo & COD ED Disposition Discharge Condition -- Date/Time ThuNov 04, 2021 4:08 PM Comment -- No discharge procedures on file. ED Prescriptions Medication Sig Dispense Start Date End Date Auth. Provider trimethoprim/sulfamethoxazole (Bactrim DS) 160/800 mg Oral Tablet Take 1 Tablet by mouth every 12 hours for 7 days. 14 Tablet 11/04/2021 11/11/2021 Venu Whyte Follow up provider: Stevie Bethea MD [phone] [facility], [address] [facility] [phone] follow up as scheduled VENU WHYTE Physician 11/04/2021 16:47 * Brandy Brewer RN - 11/04/2021 2:07 PM HST Chief Complaint Patient presents with ??? Tube replacement Patient states he has leak in catheter ~30 minutes ago. Patient a/o x3, ambulatory to ER #9 with steady gait. PT states he has increased pain to the tip ofpenis when standing and leak near the statlock site. documented in this encounter Plan of Treatment Not on file documented as of this encounter Procedures Procedure Name Priority Date/Time Associated Diagnosis Comments CATH URINE CULTURE STAT 11/04/2021 3: 10 PM HST URINE MICRO ONLY W/RELEX TO C&S STAT 11/04/2021 3:10 PM HST BASIC METABOLIC PANEL STAT 11/04/2021 2:32 PM HST CBC W/ DIFF AND PLATELET CT STAT 11/04/2021 2:32 PM HST documented in this encounter Results * Urine Culture, Cath (11/04/2021 3:10 PM HST) Report Status FINAL [facility] Urine Culture Details RESULT [facility] Comment:No growth (<1,000 or ganisms/ml) Urine (Urine, Cath-Paulson) 11/04/2021 3:10 PM HST 11/04/2021 3:15 PM HST Venu Whyte MICROBIOLOGY-ORDERAB LE Performing Organization Address [facility]/State/[facility] [[email or web address]] Co de Phone Number LAB [facility] [phone] [place] [address] [facility] [phone] [place] [address] * (ABNORMAL) Urine Micro Only W/ Reflex to C&S (11/04/2021 3:10 PM HST) Color ORANGE [facility] Appearance CLOUDY [facility] Microscopic RESULT [facility] Comment: Unable to perform urinalysis dipstick due to significant color interference. ??Urinalysis changed to urine microscopic only. WBC 6-20(H) 0-5 WBC/hpf /hpf [facility] RBC >100(H) 0-2 RBC/hpf /hpf [facility] Bacteria MANY(H) NONE /hpf DLS [facility] Urine Culture/Sensiti vity REFER TO THE MICROBIOLOGY SECTION OF REPORT [facility] 11/04/2021 3:10 PM HST 11/04/2021 3:16 PM HST Venu J Pato URINALYSIS-ORDERABLE [facility] [phone] [facility] [place] [address] [facility] [phone] [place] [address] * (ABNORMAL) CBC W/ Platelet Ct (11/04/2021 2:32 PM HST) White Blood Count 6.02 3.80 - 10.80 x10(3)/uL [facility] Red Blood Cell Count 4.40 4.00 - 6.20 x10(6)/uL [facility] Hemoglobin 13.8 13.7 - 17.5 g/dL [facility] Hematocrit 40.8 40.1 - 51.0 % [facility] MCV 92.7 79.4 - 98.4 fL [facility] MCH 31.4 26.0 - 34.0 pg [facility] MCHC 33.8 32.0 - 36.0 g/dL [facility] RDW 14.0 11.6 - 14.4 % [facility] Platelet Count 183 151 - 424 x10(3)/uL [facility] Imm Granulocyte 0.2 0.0 - 1.0 % [facility] Neutrophil 71.7 34.0 - 72.0 % [facility] Lymphocyte 18.6 12.0 - 44.0 % [facility] Monocyte 7.0 0.0 - 12.0 % [facility] Eosinophil 2.0 0.0 - 7.0 % [facility] Basophil 0.5 0.0 - 2.0 % [facility] Abs Imm Granulo 0.01 0.0 - 0.10 x10(3)/uL [facility] Abs Neutrophils 4.32 1.56 - 6.20 x10(3)/uL [facility] Abs Lymphocytes 1.12(L) 1.18 - 3.74 x10(3)/uL [facility] 11/04/2021 2:32 PM HST 11/04/2021 2:35 PM HST Venu Whyte HEMATOLOGY-ORDERABLE LAB [facility] [phone] [place] [address] [facility] [phone] [facility] [address] * (ABNORMAL) Basic Metabolic Panel (Lytes,BUN,Cre,Gluc,Ca+) (11/04/2021 2:32 PM HST) Glucose 112(H) 70 - 99 mg/dL [facility] BUN 22 6 - 23 mg/dL [facility] Creatinine 1.0 0.6 - 1.4 mg/dL [facility] eGFR CKD-EPI Cr 2020 78(L) >=90* mL/min/1.7 3m(2) [facility] Comment: *This CKD-EPI 2020 equation does not use a race coefficient and is not recommended for age less than 19 years. Sodium 140 133 - 145 mEq/L [facility] Potassium 4.4 3.3 - 5.1 mEq/L [facility] Chloride 106 95 - 108 mEq/L [facility] CO2 26 21 - 30 mEq/L [facility] Anion Gap 12(L) 14 - 20 mEq/L [facility] Calcium 9.1 8.3 - 10.5 mg/dL [facility] Blood 11/04/2021 2:32 PM HST 11/04/2021 2:35 PM HST Venu Whyte CHEMISTRY-ORDERABLE LAB [facility] [phone] [place] [address] [facility] [phone] [facility] [place] [place] [address] documented in this encounter Visit Diagnoses Diagnosis Urinary tract infection associated with indwelling urethral catheter, initial encounter ([facility]) ([facility])- Primary Hematuria, unspecified type Obstruction of Paulson catheter, initial encounter ([facility]) documented in this encounter Administered Medications Inactive Administered Medications - up to 3 most recent administrations Medication Order MAR Action Action Date Dose Rate Site cefTRIAXone 1 g/100 mL NS IVPB 1 g IV Piggyback, ONCE, 1 dose, On Thu11/04/21 at 1609, STAT, Refrigerate. Do not exceed rate of 1 g/10 min. Do not administer simultaneously with calcium containing solutions (ie: LR, parenteral nutrition) via Y-site in any age groups. Given 11/04/2021 4:22 PM HST 1 g lidocaine HCL 2 % gel Inj 10 mL INTRA OP PER MD, ONCE, 1 dose, On Thu11/04/21 at 1434, STAT Given 11/04/2021 3:13 PM HST 5 mL morphine inj 4 mg Intravenous, ONCE, 1 dose, On Thu11/04/21 at 1421, STAT Given 11/04/2021 2:42 PM HST 4 mg documented in this encounter Active and Recently Administered Medications Times are shown in HST. Scheduled Medication Order 11/02/2021 11/03/2021 11/04/2021 cefTRIAXone 1 g/100 mL NS IVPB 1 g (COMPLETED) IV Piggyback, ONCE, 1 dose, On Thu11/04/21 at 1609, STAT, Refrigerate. Do not exceed rate of 1 g/10 min. Do not administer simultaneously with calcium containing solutions (ie: LR, parenteral nutrition) via Y-site in any age groups. 1622 (Given - Provid er: Carli Mckeon RN) lidocaine HCL 2 % gel Inj 10 mL (COMPLETED) INTRA OP PER MD, ONCE, 1 dose, On Thu11/04/21 at 1434, STAT 1513 (Given - Provid er: Carli Mckeon RN - Comment: paulson insertion) morphine inj 4 mg (COMPLETED) Intravenous, ONCE, 1 dose, On Thu11/04/21 at 1421, STAT 1442 (Given - Provid er: Carli Mckeon RN) documented in this encounter Care Teams Tobacco Cloth Reclaimer Relationship Specialty Start Date End Date Ben Olmedo III, MD [address] [place] [address] [phone] PCP - General Family Medicine 10/28/21 documented as of this encounter
--- OUTSIDE RECORDS SUMMARY | 2024-03-31 04:09 | XMS_ITS | Encounter Summary ---
Author Organization [facility] Address [address] [place] [address] Care Team Providers Care Drawing Tender Name Role Phone Shara LEWIS MD, Ben Webb Primary Care Provider + Reason for Visit * Reason Comments Blood in Urine C/o blood in urine. First noted yesterday. Denies fever, dysuria Encounter Details Date Type Department Care Team (Late st Contact Info) Description 12/07/2021 7:05 AM HST - 12/07/2021 8:32 AM T Emergency [facility] Emergency Dept [phone] [facility] [address] [address] Dutch Whyte III, MD [phone] [facility] [place] [phone] Discharge Disposition: D/C Home, Self Care Social [...] have Coronavirus / COVID-19? No / Unsure 12/07/2021 7:08 AM HST documented as of this encounter Last Filed Vital Signs Vital Sign Reading Time Taken Comments Blood Pressure - - Pulse - - Temperature - - Respiratory Rate - - Oxygen Saturation - - Inhaled Oxygen Concentration - - Weight 72.6 kg (160 lb) 12/07/2021 7:11 AM HST Height 182.9 cm (6') 12/07/2021 7:11 AM HST Body Mass Index 21.7 12/07/2021 7:11 AM HST documented in this encounter Discharge Instructions * Discharge Instructions* Dutch Whyte III, MD - 12/07/2021 7:50 AM HST Call your urologist today. * Attachments The following attachments cannot be sent through Care Everywhere. * Urinary Retention in Men (AfterCare(R) Instructions(ER/ED)) (Nicaraguan) * Paulson Catheter Placement and Care (Pipe Line Gauger) (Nicaraguan) * Urinary Tract Infection in Men (AfterCare(R) Instructions(ER/ED)) ([place]icaraguan) documented in this encounter Medications at Time of Discharge Medication Sig Dispensed Refills Start Date End Date eszopiclone (LUNESTA) 3 mg Oral Tablet Take 3 mg by mouth at bedtime as needed for Sleep. ATORVASTATIN CALCIUM (ATORVASTATIN PO) Take by mouth. amitriptyline 100 mg Oral Tablet Take 100 mg by mouth at bedtime. HYDROcodone/acetaminophe n 5-325 mg Oral Tablet Take 1 Tablet by mouth every 6 hours as needed for Pain. 12/15/2021 documented as of this encounter ED Notes * Vasu Street RN - 12/07/2021 8:31 AM HST Jens Ayala was discharged from the Emergency Department ambulating, accompanied by relative. Patient/guardian verbalized understanding of all discharge instructions. Jens Ayala received: no take home meds . Patient: was NOT given narcotics or sedatives during this ED visit. Pain level 0=no pain, awake, alert, oriented x 3 and walks with steady gait. Ht 182.9 cm (6') Wt 72.6 kg (160 lb) BMI 21.70 kg/m?? The patient received the following medications during their ED encounter: Administrations This Visit None * Dutch Whyte III, MD - 12/07/2021 7:46 AM HST 76 year old male [facility] [id number] ED Date of Service: 12/07/2021 Arrival time:6:56 AM Arrival mode: Walked CC: Chief Complaint Patient presents with ??? Blood in Urine C/o blood in urine. First noted yesterday. Denies fever, dysuria HPI: The history is provided by the patient and medical records. General complaint Location: Bladder Quality: Bloody Severity: Moderate Onset quality: Gradual Duration: 1 day Timing: Constant Progression: Worsening Chronicity: Recurrent Context: Straight caths, hx bph with urologist invovlement, recurrent urinary obstruction and intermittent indwelling paulson Associated symptoms: no fatigue, no fever and no rash : History Medical History: Past Medical History: [...] HX ORTHOPEDIC SURGERY Right 2009 [employer] Meds: Prior to Admission Medications Prescriptions Last [...] No Review of Systems Constitutional: Negative for fatigue and fever. Genitourinary: Positive for difficulty urinating and hematuria. Negative for dysuria, flank pain, frequency, penile discharge and penile pain. Skin: Negative for rash. All other systems reviewed and are negative. Initial vital signs: Most recent vital signs: Physical Exam Vitals and nursing note reviewed. Constitutional: General: He is not in acute distress. Appearance: Normal appearance. He is not ill-appearing or toxic-appearing. HENT: Head: Normocephalic and atraumatic. Right Ear: External ear normal. Left Ear: External ear normal. Nose: Nose normal. Mouth/Throat: Mouth: Mucous membranes are moist. Eyes: Conjunctiva/sclera: Conjunctivae normal. Cardiovascular: Rate and Rhythm: Normal rate and regular rhythm. Pulmonary: Effort: Pulmonary effort is normal. No respiratory distress. Abdominal: General: Abdomen is flat. There is no distension. Musculoskeletal: Cervical back: Normal range of motion. No rigidity. Right lower leg: No edema. Left lower leg: No edema. Skin: Coloration: Skin is not pale. Neurological: Mental Status: He is alert. Procedures: Procedures Data Reviewed Consults: None Imaging: None Emergency Physician interpretation: None No results found for this visit on 12/07/21. Lab: Results for orders placed or performed during the hospital encounter of 12/07/21 1. UA, Complete, Reflex to C & S Result Value Color ORANGE Appearance CLOUDY Specific [place] 1.015 pH 6.0 Protein 1+ (H) Glucose NEG Ketones NEG Urobilinogen <2.0 Bilirubin NEG Blood LARGE (H) Leukocyte Esterase SMALL (H) Nitrite NEG WBC 21-50 (H) RBC >100 (H) Bacteria FEW (H) Urine Culture/Sensitivity REFER TO THE MICROBIOLOGY SECTION OF REPORT ED Course/Medical Decision Making: MDM Number of Diagnoses or Management Options Diagnosis management comments: This 76-year-old male with a history of BPH and urinary retention presents with hematuria, difficulty using a straight cath, no fevers or chills or other infectious symptoms. Exam is benign. He has no pain or complaints. He was able to void without a catheter in the emergency department to give a urinary sample. Postvoid residual is around [address] a Paulson catheter and give him a leg bag. Follow-up to urology. Will check UA to ensure no UTI. Clinical Impression: Gross hematuria (primary encounter diagnosis) Urinary retention Acute cystitis with hematuria Disposition: ED Dispo & COD ED Disposition Discharge Condition -- Date/Time Sat Dec 07, 2021 7:49 AM Comment -- No discharge procedures on file. ED Prescriptions Medication Sig Dispense Start Date End Date Auth. Provider cephALExin 500 mg Oral Capsule Take 1 Capsule by mouth every 6 hours for 5 days. 20 Capsule 12/07/2021 12/12/2021 Dutch Whyte III, MD Follow up provider: Ben Olmedo III, MD [address] [place] [phone] Schedule an appointment as soon as possible for a visit As needed DUTCH WHYTE III Physician 12/07/2021 08:08 documented in this encounter Plan of Treatment Not on file documented as of this encounter Procedures Procedure Name Priority Date/Time Associated Diagnosis Comments URINALYSIS, COMPLETE, REFLEX TO C & S STAT 12/07/2021 7:19 AM HST URINE CULTURE STAT 12/07/2021 7:19 AM HST documented in this encounter Results * (ABNORMAL) Urine Culture (12/07/2021 7:19 AM HST) Report Status FINAL DLS [facility] Urine Culture Details RESULT(A) [facility] Comment:1 50,000 - 100,000 O RGANISMS/ML Urine Culture Details STAPHYLOCOCCUS EPIDERMIDIS(A) [facility] Urine (Urine, Clean Catch) 12/07/2021 7:19 AM HST 12/07/2021 7:19 AM HST Narrative Organism Antibiotic Method Susceptibility Staphylococcus epidermidis Cefazolin KB RESULT: Susceptible Staphylococcus epidermidis Daptomycin KENIA 0.500: Susceptible Staphylococcus epidermidis Linezolid KENIA 2.00: Susceptible Staphylococcus epidermidis Minocycline KENIA <=0.5: Susceptible Staphylococcus epidermidis Moxifloxacin KENIA 1.00: Intermediate Staphylococcus epidermidis Nitrofurantoin KENIA <=16: Susceptible Staphylococcus epidermidis Oxacillin KENIA <=0.25: Susceptible Staphylococcus epidermidis Penicillin G KENIA >=0.5: Resistant Staphylococcus epidermidis Rifampin KENIA <=0.5: Susceptible Staphylococcus epidermidis Tetracycline KENIA 4.00: Susceptible Staphylococcus epidermidis Trimeth/Sulfa KENIA 160: Resistant Staphylococcus epidermidis Vancomycin KENIA 1.00: Susceptible Comment: -- ??Susceptibilities are reported with CLSI interpretation of S,SDD, ??I,NS, or R and an KENIA (Minimum Inhibitory Conc.) in ??mcg/ml. ??If an KENIA is not reported, testing was performed by the ??Tran-Jimenez disc-diffusion method. ?S ?? = ?? Susceptible ?SDD = ?? Susceptible-dose dependent ? The interpretation for SDD is based on dosage regimens. ? Higher doses, more frequent doses, or both that result in ? higher antimicrobial exposure can be expected to result ? in susceptibility. Dosage regimens can be found in annual ? CLSI M100, Appendix E. ?I ?? = ?? Intermediate ? Clinical efficacy may be limited to maximum dosages and/or ? anatomical sites where the drugs are physiologically ? concentrated. ?NS ??= ?? Nonsusceptible ? For isolates where only a susceptible breakpoint is ? designated because of the absence or rare occurrence ? of resistant strains. ?R ?? = ?? Resistant ??Additional antibiotic sensitivity tests and results are available on ??request from the microbiology laboratory, or contact ??the Microbiology Financial Reserve Clerk for consultation. Dutch Whyte III, MD MICROBIOLOGY-[facility] [phone] [place] [address] [facility] [phone] [place] [address] * (ABNORMAL) UA, Complete, Reflex to C & S (12/07/2021 7:19 AM HST) Color ORANGE DLS [facility] Appearance CLOUDY [facility] Specific [place] 1.015 1.005 - 1.030 [facility] pH 6.0 5.0 - 7.5 DLS [facility] Protein 1+(H) NEGATIVE [facility] Glucose NEG NEGATIVE [facility] Ketones NEG NEGATIVE [facility] Urobilinogen <2.0 <2.0 mg/dL mg/dL [facility] Bilirubin NEG NEGATIVE [facility] Blood LARGE(H) NEGATIVE [facility] Leukocyte Esterase SMALL(H) NEGATIVE [facility] Nitrite NEG NEGATIVE [facility] WBC 21-50(H) 0-5 WBC/hpf /hpf [facility] RBC >100(H) 0-2 RBC/hpf /hpf [facility] Bacteria FEW(H) NONE /hpf [facility] Urine Culture/Sensiti vity REFER TO THE MICROBIOLOGY SECTION OF REPORT [facility] Urine (Urine, Clean Catch) 12/07/2021 7:19 AM HST 12/07/2021 7:27 AM HST Dutch Whyte III, MD URINALYSIS-ORDERA BLE [facility] [phone] [facility] [address] [facility] [phone] [facility] [address] documented in this encounter Visit Diagnoses Diagnosis Gross hematuria- Primary Urinary retention Retention of urine, unspecified Acute cystitis with hematuria Acute cystitis documented in this encounter Care Teams Drawing Tender Relationship Specialty Start Date End Date Ben Olmedo III, MD [address] [place] [phone] PCP - General Family Medicine 10/28/21 documented as of this encounter
--- OUTSIDE RECORDS SUMMARY | 2024-03-31 04:09 | XMS_ITS | Encounter Summary ---
Author Organization [facility] Address [address] [place] [address] Care Team Providers Care Donor Services Coordinator Name Role Phone Shara LEWIS MD, Ben W Primary Care Provider + Encounter Details Date Type Department Care Team (Late st Contact Info) Description 12/19/2021 Orders Only [facility] [address] [place] [address] Bernie England MD [address] [place] [address] White matter disease (Primary Dx) Social History Tobacco Use Types [...] AM HST documented as of this encounter Plan of Treatment Not on file documented as of this encounter Procedures Procedure Name Priority Date/Time Associated Diagnosis Comments SARS COV-2 ROUTINE (COVID-19) (12-72HR RUN TIME) *SEE TEST PROTOCOL* Routine 01/06/2022 10:00 AM HST White matter disease documented in this encounter Results * SARS CoV-2 Routine (COVID-19) (12-72hr run time) *See Test Protocol* Screening (Asymptomatic) (01/06/2022 10:00 AM HST) Source NASOPHARYNGEAL DLS [facility] [employer] SARS CoV-2 (COVID-19) RT PCR NOT DETECTED NOT DETECTED [facility] Comment: [employer] [id number] COVID Results SARS-CoV-2 Nucleic Acid Amplification (NAAT; e.g., real time PCR) is authorized for use under the Food and Drug Administration's Emergency Use Authorization (EUA) and/or has been validated as a laboratory developed test (LDT) by [facility]. The performance characteristics have been verified by [facility]. Detected (positive) results are indicative of the presence of SARS-CoV-2 RNA; clinical correlation with patient history and other diagnostic information is necessary to determine patient infection status. Not Detected (negative) results do not preclude SARS-CoV-2 infection and should not be used as the sole basis for patient management decisions. Not Detected results must be combined with clinical observations, patient history, and epidemiological information. Swab (Nasopharynx) 01/06/2022 10:00 AM HST 01/06/2022 1:33 PM HST Bernie England MD MISC NON-BLOOD ORD ERABLE LAB DLS AMB [phone] [place] [address], [facility] [phone] [place] [address] [facility] [phone] [place] [address] documented in this encounter Visit Diagnoses Diagnosis White matter disease- Primary Other conditions of brain documented in this encounter Care Teams Donor Services Coordinator Relationship Specialty Start Date End Date Ben Olmedo III, MD [address] [place] [phone] PCP - General Family Medicine 10/28/21 documented as of this encounter
--- OUTSIDE RECORDS SUMMARY | 2024-03-31 04:09 | XMS_ITS | Encounter Summary ---
Author Organization [facility] Address [address] [place] [address] Care Team Providers Care Flavor Maker Name Role Phone Shara LEWIS MD, Ben W Primary Care Provider + Reason for Visit * Reason Comments Abdominal Pain Lower Abdominal pain / has paulson / poss kidney stone Encounter Details Date Type Department Care Team (Late st Contact Info) Description 11/03/2021 8:24 AM HST - 11/03/2021 10:57 AM HST Emergency [facility] Emergency Dept [phone] [facility] [place] [address] Guanako Hernandez MD [phone] [facility] [address] Discharge Disposition: D/C Home, Self Care Social [...] Sign Reading Time Taken Comments Blood Pressure 160/88 11/03/2021 8:26 AM HST Pulse 90 11/03/2021 8:26 AM HST Temperature 36.6 ??C (97.8 ??F) 11/03/2021 8:26 AM HS T Respiratory Rate 18 11/03/2021 8:26 AM HST Oxygen Saturation 98% 11/03/2021 8:26 AM HST Inhaled Oxygen Concentration - - Weight 72.6 kg (160 lb) 11/03/2021 8:26 AM HST Height 182.9 cm (6') 11/03/2021 8:26 AM HST Body Mass Index 21.7 11/03/2021 8:26 AM HST documented in this encounter Discharge Instructions * Discharge Instructions* Guanako Hernandez MD - 11/03/2021 10:13 AM HST I recommend close follow-up with the urologist. Should you develop new or worsening symptoms returnto the emergency department for reevaluation. Please take the Flomax as directed in the interim. * Attachments The following attachments cannot be sent through Care Everywhere. * CARENOTES SYSTEM - URINARY RETENTION IN MEN (DISCHARGE CARE) (AMHARIC) documented in this encounter Medications at Time [...] as of this encounter Nursing Notes * Nomi Narayan RN - 11/03/2021 8:31 AM HST 11/03/21 0831 SDOH Screening Who is answering the SDOH [...] documented in this encounter ED Notes * Nomi Narayan RN - 11/03/2021 10:56 AM HST Jens Ayala was discharged from the Emergency Department ambulating, accompanied by no one. Patient/guardian verbalized understanding of all discharge instructions. Jens Ayala received: no take home meds . Patient: was NOT given narcotics or sedatives during this ED visit. Pain level 0=no pain, awake, alert, oriented x 3 and walks with steady gait. BP 160/88 Pulse 90 Temp 36.6 ??C (97.8 ??F) Resp 18 Ht 182.9 cm (6') Wt 72.6 kg (160 lb) SpO2 98% BMI 21.70 kg/m?? The patient received the following medications during their ED encounter: Administrations This Visit None * Guanako Hernandez MD - 11/03/2021 10:46 AM HST 76 year old male [facility] [id number] ED Date of Service: 11/03/2021 Arrival time:8:16 AM Arrival mode: Walked CC: Chief Complaint Patient presents with ??? Abdominal Pain Lower Abdominal pain / has paulson / poss kidney stone HPI: The history is provided by the patient. Abdominal Pain Pain location: Suprapubic Pain quality: fullness Pain radiates to: Does not radiate Pain severity: Mild Onset quality: Gradual Duration: 3 days Timing: Intermittent Progression: Partially resolved Chronicity: Recurrent Context: not alcohol use, not awakening from sleep and not laxative use Relieved by: Nothing Worsened by: Nothing Ineffective treatments: None tried Associated symptoms: constipation and hematuria Associated symptoms: no anorexia, no belching, no chest pain, no chills, no cough, no dysuria, no fatigue, no fever, no hematemesis, no shortness of breath, no sore throat and no vomiting Risk factors: no alcohol abuse and no aspirin use : Jens Ayala is a 76 year old male who presents today with suprapubic pain, hematuria. Patient presents for the third time in 3 days secondary to problems with urinary retention, and Paulson catheter complications. Patient reports that he has had some clots and some intermittent difficulty with the catheter emptying his bladder. He denies any fevers. Denies any vomiting. The patient reports that he felt like he passed a clot this morning, and that bladder is now flowing freely through the catheter. History Medical History: Past Medical History: Diagnosis [...] HX ORTHOPEDIC SURGERY Right 2009 [employer] Meds: Prior to Admission Medications Prescriptions Last [...] No Review of Systems Constitutional: Negative for chills, fatigue and fever. HENT: Negative for ear pain and sore throat. Eyes: Negative for pain and visual disturbance. Respiratory: Negative for cough and shortness of breath. Cardiovascular: Negative for chest pain and palpitations. Gastrointestinal: Positive for abdominal pain and constipation. Negative for anorexia, hematemesis and vomiting. Genitourinary: Positive for hematuria. Negative for dysuria. Musculoskeletal: Negative for arthralgias and back pain. Skin: Negative for color change and rash. Neurological: Negative for seizures and syncope. All other systems reviewed and are negative. Initial vital signs: BP: 160/88, Pulse: 90, Resp: 18, Temp: 36.6 ??C (97.8 ??F), SpO2 (%): 98 %, Room Air/Liter Flow (LPM): Room air Most recent vital signs: BP: 160/88, Pulse: 90, Resp: 18, Temp: 36.6 ??C (97.8 ??F), SpO2 (%): 98 %, Room Air/Liter Flow (LPM): Room air Physical Exam Vitals and nursing note reviewed. Constitutional: Appearance: He is normal weight. HENT: Head: Normocephalic. Eyes: Extraocular Movements: Extraocular movements intact. Cardiovascular: Rate and Rhythm: Normal rate and regular rhythm. Heart sounds: No murmur heard. Abdominal: General: Bowel sounds are normal. Tenderness: There is no abdominal tenderness. There is no right CVA tenderness, left CVA tendernessor guarding. Genitourinary: Penis: Normal. Testes: Normal. Rectum: Normal. Skin: General: Skin is warm. Capillary Refill: Capillary refill takes less than 2 seconds. Neurological: General: No focal deficit present. Mental Status: He is alert and oriented to person, place, and time. Procedures: Procedures Data Reviewed Consults: None Imaging: None No results found for this visit on 11/03/21. Lab: No results found for this visit on 11/03/21. ED Course/Medical Decision Making: MDM Number of Diagnoses or Management Options Complication of Paulson catheter, subsequent encounter Hematuria, unspecified type Urinary retention Diagnosis management comments: Patient is a 76-year-old male who presents with recurrent urinary retention, hematuria. He has a Paulson catheter that is been in place over the last few days. On exam heis nontoxic in appearance he is not tachypneic or in respiratory distress. Abdomen is soft, nontender. Patient passed a clot and found significant relief of symptoms this morning. His bladder was irrigated thoroughly, no hematuria noted. Patient is given instructions for close urology follow-up. Heis given strict return precautions for new or worsening symptoms. Clinical Impression: Urinary retention (primary encounter diagnosis) Hematuria, unspecified type Complication of paulson catheter, subsequent encounter Disposition: ED Dispo & COD ED Disposition Discharge Condition -- Date/Time Sun Nov 03, 2021 10:12 AM Comment -- No discharge procedures on file. ED Prescriptions None Follow up provider: Stevie Bethea MD [phone] [facility] [address] [facility] [phone] GUANAKO HERNANDEZ Physician 11/03/2021 10:46 * Nomi Narayan, RN - 11/03/2021 10:04 AM HST paulson irrigated / no blood clots documented in this encounter Plan of Treatment Not on file documented as of this encounter Visit Diagnoses Diagnosis Urinary retention- Primary Retention of urine, unspecified Hematuria, unspecified type Complication of Paulson catheter, subsequent encounter documented in this encounter Care Teams Flavor Maker Relationship Specialty Start Date End Date Ben Olmedo III, MD [address] [place] [phone] PCP - General Family Medicine 10/28/21 documented as of this encounter
--- OUTSIDE RECORDS SUMMARY | 2024-03-31 04:09 | XMS_ITS | Encounter Summary ---
Author Organization [facility] Address [address] [place] [address] Care Team Providers Care Drier And Grinder Tender Name Role Phone Shara LEWIS MD, Ben W Primary Care Provider + Reason for Visit * Reason Comments Blood in Urine Self cath today and urine was the color of wine Encounter Details Date Type Department Care Team (Late st Contact Info) Description 11/08/2021 3:59 PM HST - 11/08/2021 5:01 PM HST Emergency [facility] Emergency Dept [phone] [facility] [place] [address] Claude Stallworth MD [phone] [facility] [place] [phone] Discharge Disposition: D/C Home, Self Care Social [...] have Coronavirus / COVID-19? No / Unsure 11/08/2021 4:05 PM HST documented as of this encounter Last Filed Vital Signs Vital Sign Reading Time Taken Comments Blood Pressure 139/76 11/08/2021 4:12 PM HST Pulse 75 11/08/2021 4:12 PM HST Temperature 36.1 ??C (97 ??F) 11/08/2021 4:12 PM HST Respiratory Rate 16 11/08/2021 4:12 PM HST Oxygen Saturation 96% 11/08/2021 4:12 PM HST Inhaled Oxygen Concentration - - Weight 72.6 kg (160 lb) 11/08/2021 4:12 PM HST Height 182.9 cm (6') 11/08/2021 4:12 PM HST Body Mass Index 21.7 11/08/2021 4:12 PM HST documented in this encounter Discharge Instructions * Attachments The following attachments cannot be sent through Care Everywhere. * ACUTE HEMATURIA (DISCHARGE CARE) (SAMMARINESE) documented in this encounter Medications at Time [...] as of this encounter ED Notes * Claude Stallworth MD - 11/08/2021 5:14 PM HST Jens Ayala, 76 year old male CSN: [id number] ED Date of Service: 11/08/2021 Arrival time:3:08 PM Arrival mode: Walked Chief Complaint Patient presents with ??? Blood in Urine Self cath today and urine was the color of wine HPI Pt is a 76 y M presenting with hematuria. Here recently for urinary retention, had paulson. Went to urology yesterday and paulson removed and instructed to straight cath and will fu to determine if further intervention needed. Today performed cath and there was blood at end and concerned so came in. No clots, was able to fully drain bladder as far as he was aware. Past Medical History: Diagnosis Date ??? Kidney disease BPH ??? Pure hypercholesterolemia ??? Restless leg syndrome ??? Sleep disorder There is no immunization history on file for this patient. Past Surgical History: Procedure Laterality Date ??? HX KIDNEY/BLADDER/PROSTATE SURGERY prostate surgery ??? HX ORTHOPEDIC SURGERY Right 2009 [facility] Family History Problem Relation Age of Onset ??? Muscular dystrophy Mother ??? Kidney Disease Father ??? Heart Disease Father ??? Cancer Maternal Grandfather ??? Cancer Sister Social History Tobacco Use ??? Smoking status: Never Smoker ??? Smokeless tobacco: Never Used Substance Use Topics ??? Alcohol use: No Social History Substance and Sexual Activity Drug use: No Allergies: Patient has no known allergies. Home Meds: Prior to Admission Medications Prescriptions Last Dose Informant Patient Reported? Taking? trimethoprim/sulfamethoxazole (Bactrim DS) 160/800 mg Oral Tablet No No Take 1 Tablet by mouth every 12 hours for 7 days. HYDROcodone/acetaminophen 5-325 mg Oral Tablet Yes No [...] times a day as needed for Dysuria. Patient not taking: Reported on 11/06/2021 eszopiclone (LUNESTA) 3 mg Oral Tablet Yes [...] Negative for abdominal pain and vomiting. Genitourinary: Positive for hematuria. Negative for dysuria. Musculoskeletal: Negative for arthralgias and back pain. Skin: Negative for color change and rash. Neurological: Negative for seizures and syncope. All other systems reviewed and are negative. Initial vital signs: BP: 139/76, Pulse: 75, Resp: 16, Temp: 36.1 ??C (97 ??F), SpO2 (%): 96 %, Room Air/Liter Flow (LPM): Room air Most recent vital signs: BP: 139/76, Pulse: 75, Resp: 16, Temp: 36.1 ??C (97 ??F), SpO2 (%): 96 %, Room Air/Liter Flow (LPM): Room air Physical Exam Vitals and nursing note reviewed. Constitutional: Appearance: He is well-developed. HENT: Head: Normocephalic and atraumatic. Eyes: Conjunctiva/sclera: Conjunctivae normal. Cardiovascular: Rate and Rhythm: Normal rate and regular rhythm. Heart sounds: No murmur heard. Pulmonary: Effort: Pulmonary effort is normal. No respiratory distress. Breath sounds: Normal breath sounds. Abdominal: Palpations: Abdomen is soft. Tenderness: There is no abdominal tenderness. Musculoskeletal: Cervical back: Neck supple. Skin: General: Skin is warm and dry. Neurological: Mental Status: He is alert. Procedures Procedures Data Reviewed Consults: None EKG: No orders of the defined types were placed in this encounter. EKG Interpretation: No EKG ordered. Imaging: None Emergency Physician interpretation: None No results found for this visit on 11/08/21. Lab: No results found for this visit on 11/08/21. All Medications ordered during this Encounter: Medications - No data to display Medical Decision Making: Scoring Tools: MDM Number of Diagnoses or Management Options Hematuria, unspecified type Diagnosis management comments: Pt with gross hematuria. Recent paulson requiring replacement multipletime, likely 2/2 trauma with this. No clots. Pt straight cath here, small amount hematuria towards end of stream but no clots and able to fully empty bladder. Discussed ongoing straight cath, s/s retention to return for paulson, urology fu, other return precautions. Critical Care Time: No critical care was provided. Clinical Impression: Hematuria, unspecified type (primary encounter diagnosis) Disposition: ED Dispo & COD ED Disposition Discharge Condition -- Date/Time ThuNov 08, 2021 4:47 PM Comment -- No discharge procedures on file. ED Prescriptions None Follow up provider: Ben Olmedo III, MD [phone] [facility] [phone] Schedule an appointment as soon as possible for a visit [facility] Emergency Dept [phone] [facility] [phone] As needed, If symptoms worsen CLAUDE STALLWORTH Physician 11/08/2021 17:17 * Carli Mkceon RN - 11/08/2021 5:01 PM HST Jens Ayala was discharged from the Emergency Department ambulating, accompanied by relative. Patient/guardian verbalized understanding of all discharge instructions. Jens Ayala received: no take home meds . Patient: was NOT given narcotics or sedatives during this ED visit. Pain level 0=no pain, awake, alert, oriented x 3 and walks with steady gait. BP 139/76 Pulse 75 Temp 36.1 ??C (97 ??F) (Temporal) Resp 16 Ht 182.9 cm (6') Wt 72.6 kg (160 lb) SpO2 96% BMI 21.70 kg/m?? The patient received the following medications during their ED encounter: Administrations This Visit None * Carli Mckeon RN - 11/08/2021 4:43 PM HST Patient self cath dark yellow urine out approximately 150ml. Bladder scan 42ml. Dr Stallworth informed documented in this encounter Plan of Treatment Not on file documented as of this encounter Visit Diagnoses Diagnosis Hematuria, unspecified type- Primary documented in this encounter Care Teams Drier And Grinder Tender Relationship Specialty Start Date End Date Ben Olmedo III, MD [address] [place] [phone] PCP - General Family Medicine 10/28/21 documented as of this encounter
--- OUTSIDE RECORDS SUMMARY | 2024-03-31 04:09 | XMS_ITS | Encounter Summary ---
Author Organization [facility] Address [address] [place] [address] Care Team Providers Care Senior Front End Web Developer Name Role Phone Shara LEWIS MD, Ben W Primary Care Provider + Reason for Visit * Reason Comments Blood in Urine Blood draining in ca theter Encounter Details Date Type Department Care Team (Late st Contact Info) Description 12/12/2021 11:03 AM HST - 12/12/2021 12:13 PM T Emergency [facility] Emergency Dept [phone] [facility] [place] [address] Case Mazariegos MD [phone] [facility] [place] [phone] Discharge Disposition: D/C Home, Self Care Social [...] suspected to have Coronavirus/COVID-19? No / Unsure 12/12/2021 11:05 AM HST documented as of this encounter Last Filed Vital Signs Vital Sign Reading Time Taken Comments Blood Pressure 146/92 12/12/2021 11:20 AM HST Pulse 93 12/12/2021 11:20 AM HST Temperature - - Respiratory Rate - - Oxygen Saturation 99% 12/12/2021 11:20 AM HST Inhaled Oxygen Concentration - - Weight 68 kg (150 lb) 12/12/2021 11:10 AM HST Height 172.7 cm (5' 8) 12/12/2021 11:10 AM HST Body Mass Index 22.81 12/12/2021 11:10 AM HST documented in this encounter Medications at Time of Discharge Medication Sig Dispensed Refills Start Date End Date eszopiclone (LUNESTA) 3 mg Oral Tablet Take 3 mg by mouth at bedtime as needed for Sleep. ATORVASTATIN CALCIUM (ATORVASTATIN PO) Take by mouth. amitriptyline 100 mg Oral Tablet Take 100 mg by mouth at bedtime. oxybutynin 5 mg Oral Tablet Take 1 Tablet by mouth 2 times a day for 7 days. 14 Tablet 12/10/2021 12/17/2021 nitrofurantoin monohydrate/nitrofurantoi n macrocrystals (Macrobid) 100 mg Oral Capsule Take 1 Capsule by mouth 2 times a day with meals for 14 days. 28 Each 12/09/2021 12/23/2021 HYDROcodone/acetaminophen 5-325 mg Oral Tablet Take 1 Tablet by mouth every 6 hours as needed for Pain. 12/15/2021 documented as of this encounter ED Notes * Case Almazan MD - 12/12/2021 1:33 PM HST Jens Ayala, 76 year old male CSN: [id number] ED Date of Service: 12/12/2021 Arrival time:10:48 AM Arrival mode: Walked Chief Complaint Patient presents with ??? Blood in Urine Blood draining in catheter Initial C-SSRS Score: Low (12/12/21 1106) HPI HPI 76-year-old male presents complaining of hematuria No clots, no abdominal pain, no fevers or chills Patient had a CT scan 3 days ago that showed possible bladder mass He is on nitrofurantoin for recent urine culture that showed staph epidermidis Continues have mild bladder spasms Also hematuria Next urology appointment is in 1 week Past Medical History: Diagnosis Date ??? Cancer (CMS/HCC) ??? Kidney disease BPH ??? Pure hypercholesterolemia [...] Prescriptions Last Dose Informant Patient Reported? Taking? dutasteride (AVODART) 0.5 mg Oral Capsule Yes No Take 0.5 mg by mouth daily. oxybutynin 5 mg Oral Tablet No No Take 1 Tablet by mouth 2 times a day for 7 days. nitrofurantoin monohydrate/nitrofurantoin macrocrystals (Macrobid) 100 mg Oral Capsule No No Take 1 Capsule by mouth 2 times a day with meals for 14 days. HYDROcodone/acetaminophen 5-325 mg Oral Tablet Yes [...] are negative. Initial vital signs: BP: (!) 146/92, Pulse: 93, SpO2 (%): 99 % Most recent vital signs: BP: (!) 146/92, Pulse: 93, SpO2 (%): 99 % Physical Exam Vitals and nursing note reviewed. Constitutional: Appearance: He is well-developed. HENT: Head: Normocephalic and atraumatic. Eyes: Conjunctiva/sclera: Conjunctivae normal. Cardiovascular: Rate and Rhythm: Normal rate and regular rhythm. Heart sounds: No murmur heard. Pulmonary: Effort: Pulmonary effort is normal. No respiratory distress. Breath sounds: Normal breath sounds. Abdominal: Palpations: Abdomen is soft. Tenderness: There is no abdominal tenderness. Genitourinary: Comments: Mathew catheter in place, normal urethral meatus Musculoskeletal: Cervical back: Neck supple. Skin: General: Skin is warm and dry. Neurological: Mental Status: He is alert. Procedures Procedures Data Reviewed Consults: None EKG: No orders of the defined types were placed in this encounter. EKG Interpretation: No EKG ordered. Imaging: None Emergency Physician interpretation: None No results found for this visit on 12/12/21. Lab: No results found for this visit on 12/12/21. All Medications ordered during this Encounter: Medications - No data to display Medical Decision Making: Scoring Tools: MDM 76-year-old male with hematuria Patient likely has a bladder mass especially with escalating PSA. He did recently have a cystoscopywhich he states was negative for mass. Most recent urine culture negative, currently on nitrofurantoin for positive urine culture for staph epi 3 days ago, do not feel compelled to change antibioticsas I feel he is unlikely to have a catheter associated UTI at this time. On exam it is noted that his catheter is pulled to extreme tension. Suspect this is causing him discomfort. Advised follow-up with his urologist as scheduled and return to the ED for any signs of obstruction. He continues to have free-flowing urine in his catheter and postvoid residual is 50 Critical Care Time: No critical care was provided. Clinical Impression: Mathew catheter problem, initial encounter ([facility]) (primary encounter diagnosis) Disposition: ED Dispo & COD ED Disposition Discharge Condition -- Date/Time Naomy Dec 12, 2021 11:44 AM Comment -- No discharge procedures on file. ED Prescriptions None Follow up provider: Alfa Whitten MD [address] [facility] [address] [facility] [phone] CASE ALMAZAN Physician 12/12/2021 13:33 * Vasu Street RN - 12/12/2021 12:12 PM HST Jens Ayala was discharged from the Emergency Department ambulating, accompanied by no one. Patient/guardian verbalized understanding of all discharge instructions. Jens Ayala received: no take home meds . Patient: was NOT given narcotics or sedatives during this ED visit. Pain level 0=no pain, awake, alert, oriented x 3 and walks with steady gait. BP (!) 146/92 Pulse 93 Ht 172.7 cm (5' 8) Wt 68 kg (150 lb) SpO2 99% BMI 22.81 kg/m?? The patient received the following medications during their ED encounter: Administrations This Visit None documented in this encounter Plan of Treatment Not on file documented as of this encounter Visit Diagnoses Diagnosis Mathew catheter problem, initial encounter ([facility])- Primary documented in this encounter Care Teams Senior Front End Web Developer Relationship Specialty Start Date End Date Ben Olmedo III, MD [address] [place] [phone] PCP - General Family Medicine 10/28/21 documented as of this encounter
--- OUTSIDE RECORDS SUMMARY | 2024-03-31 04:09 | XMS_ITS | Encounter Summary ---
Author Organization [facility] Address [address] [place] [address] Care Team Providers Care Parts Identification Technician Name Role Phone Shara LEWIS MD, Ben Webb Primary Care Provider + Reason for Visit * Reason Comments Pain, other Patient here with fo wilmar catheter in place, bleeding and spasms to penis. Patient states he was seen here yesterday for pain around catheter site with some bleeding. Encounter Details Date Type Department Care Team (Late st Contact Info) Description 12/15/2021 1:15 AM HST - 12/15/2021 2:30 AM T Emergency [facility] Emergency Dept [phone] [place] [address] Maddison Hope MD [phone] [facility] [place] [phone] Discharge Disposition: D/C Home, Self Care Social [...] Sign Reading Time Taken Comments Blood Pressure 136/62 12/15/2021 1:22 AM HST Pulse 93 12/15/2021 1:22 AM HST Temperature 36.5 ??C (97.7 ??F) 12/15/2021 1:22 AM HS T Respiratory Rate 18 12/15/2021 1:22 AM HST Oxygen Saturation 99% 12/15/2021 1:22 AM HST Inhaled Oxygen Concentration - - Weight 72.6 kg (160 lb) 12/15/2021 1:22 AM HST Height 182.9 cm (6') 12/15/2021 1:22 AM HST Body Mass Index 21.7 12/15/2021 1:22 AM HST documented in this encounter Discharge Instructions * Discharge Instructions* Maddison Hope MD - 12/15/2021 2:08 AM HST Follow-up with your urologist about your visit today. Also follow-up with your primary care doctor early this week for close reevaluation as well as ongoing management of your symptoms. Return to theER sooner for any new or worsening symptoms including fevers, Paulson not draining, abdominal pain/flank pain, or any other new or concerning symptoms. * Attachments The following attachments cannot be sent through Care Everywhere. * Hematuria (AfterCare(R) Instructions(ER/ED)) (Tajik) documented in this encounter Medications at Time [...] 7 days. 14 Tablet 12/10/2021 12/17/2021 nitrofurantoin monohydrate/nitrofuranto in macrocrystals (Macrobid) 100 mg Oral Capsule Take 1 Capsule by mouth 2 times a day with meals for 14 days. 28 Each 12/09/2021 12/23/2021 documented as of this encounter ED Notes * Maddison Hope MD - 12/15/2021 5:07 AM HST Jens Ayala, 76 year old male CSN: [id number] ED Date of Service: 12/15/2021 Arrival time:1:11 AM Arrival mode: Walked Chief Complaint Patient presents with ??? Pain, other Patient here with paulson catheter in place, bleeding and spasms to penis. Patient states he was seen here yesterday for pain around catheter site with some bleeding. Initial C-SSRS Score: Low (12/15/21 0123) HPI 76-year-old male history of BPH presents with ongoing hematuria as well as spasm sensation to the penis and bladder. Patient developed urinary retention and hematuria a month and a half ago, has had indwelling Paulson, and has seen his urologist Dr Alcantara most recently 1.5 weeks ago. He did undergo cystoscopy, was noted to have enlarged prostate, and was advised to discuss further intervention including possible TURP, he has an appointment with urologist later this month. He has had multiple ED visits for similar symptoms of spasm/discomfort and hematuria, his symptoms are the same. He iscurrently on Macrobid for recent UTI. He has had ongoing pink/reddish tinged urine which is unchanged from baseline recently. Denies fevers, no chest pain, no shortness of breath, no abdominal pain, no flank pain. Past Medical History: Diagnosis Date ??? Cancer [...] a day with meals for 14 days. ALPRAZolam 0.5 mg Oral Tablet Yes No Take 0.5 mg by mouth 2 times a day. escitalopram oxalate 10 mg Oral Tablet Yes No Take 10 mg by mouth every morning. HYDROcodone/acetaminophen 5-325 mg Oral Tablet Yes No Take 1 Tablet by mouth every 6 hours as needed for Pain. eszopiclone (LUNESTA) 3 mg Oral Tablet Yes [...] bedtime. Review of Systems Constitutional: Negative for fever. Respiratory: Negative for shortness of breath. Cardiovascular: Negative for chest pain. Gastrointestinal: Negative for abdominal pain and vomiting. Genitourinary: Positive for hematuria. Negative for decreased urine volume and testicular pain. Musculoskeletal: Negative for back pain. All other systems reviewed and are negative. Initial vital signs: BP: 136/62, Pulse: 93, Resp: 18, Temp: 36.5 ??C (97.7 ??F), SpO2 (%): 99 %, Room Air/Liter Flow (LPM): Room air Most recent vital signs: BP: 136/62, Pulse: 93, Resp: 18, Temp: 36.5 ??C (97.7 ??F), SpO2 (%): 99 %, Room Air/Liter Flow (LPM): Room air [...] There is no abdominal tenderness. Genitourinary: Comments: Paulson in place with pink tinged urine. No tendenress/erythema of penis, no uretheral drainage. Musculoskeletal: Cervical back: Neck supple. Skin: General: Skin is warm and dry. Neurological: General: No focal deficit present. Mental Status: He is alert and oriented to person, place, and time. Psychiatric: Mood and Affect: Mood normal. Behavior: Behavior normal. Procedures Procedures Data Reviewed Consults: None EKG: No orders of the defined types were placed in this encounter. EKG Interpretation: No EKG ordered. Imaging: None Emergency Physician interpretation: None No results found for this visit on 12/15/21. Lab: No results found for this visit on 12/15/21. All Medications ordered during this Encounter: Medications lidocaine HCL 2 % gel Inj 10 mL (10 mL INTRA OP PER MD Given 12/15/21 4135) Medical Decision Making: Scoring Tools: MDM Number of Diagnoses or Management Options Hematuria, unspecified type Diagnosis management comments: 76-year-old male history of BPH and recent Paulson placement 1.5-monthago due to retention with multiple ED visits subsequently for hematuria and bladder/penile spasm sensation presents with same symptoms today. On exam, he is awake, alert, NAD. He states his symptoms have subsided at this time, although he does have intermittent episodes where he feels significant sp asm which are very uncomfortable. His vitals here are stable. On exam, he is noted about Paulson in place, with pink-tinged urine, abdomen soft, nontender no CVA tenderness. Suspect his symptoms are ongoing secondary to hematuria, discussed doing further labs including UA, CBC although he declines atthis time. He does request help with symptomatic management. He states that in the past, lidocaine gel has helped in the past, will give another trial of this. Patient on hydrocodone for chronic kneepain, but he does state that this has seemed to help with the spasm pain as well. Will write refillof short course until he is able to follow with his PMD for further pain management. Ultimately, grabiel need follow-up with urology, will be discharged with return precautions. Critical Care Time: No critical care was provided. Clinical Impression: Hematuria, unspecified type (primary encounter diagnosis) Disposition: ED Dispo & COD ED Disposition Discharge Condition -- Date/Time Sun Dec 15, 2021 2:10 AM Comment -- No discharge procedures on file. ED Prescriptions Medication Sig Dispense Start Date End Date Auth. Provider HYDROcodone/acetaminophen 5-325 mg Oral Tablet Take 1 Tablet by mouth every 6 hours as needed for Pain - Moderate. Do not drive or operate machinary 6 Tablet 12/15/2021 Maddison Hope MD Follow up provider: Krissy Alcantara MD [address] [phone] Ben Olmedo III, MD [address] [place] [phone] On 12/16/2021 MADDISON HOPE Physician 12/15/2021 05:14 * Brandy Brewer RN - 12/15/2021 2:29 AM HST Jens Ayala was discharged from the Emergency Department ambulating, accompanied by no one. Patient verbalized understanding of all discharge instructions. Jens Ayala received: no take home meds. Patient: was NOT given narcotics or sedatives during this ED visit. Pain level 5/10, awake, alert, oriented x 3 and walks with steady gait. BP 136/62 Pulse 93 Temp36.5 ??C (97.7 ??F) (Temporal) Resp 18 Ht 182.9 cm (6') Wt 72.6 kg (160 lb) SpO2 99% BMI 21.70 kg/m?? The patient received the following medications during their ED encounter: Administrations This Visit lidocaine HCL 2 % gel Inj 10 mL Admin Date 12/15/2021 Action Given * Brandy Brewer RN - 12/15/2021 1:23 AM HST Chief Complaint Patient presents with ??? Pain, other Patient here with paulson catheter in place, bleeding and spasms to penis. Patient states he was seen here yesterday for pain around catheter site with some bleeding. Patient a/o x3, ambulatory to ER #14 with steady gait. PT reports spasms and bleeding at paulson catheter site. documented in this encounter Plan of Treatment Not on file documented as of this encounter Visit Diagnoses Diagnosis Hematuria, unspecified type- Primary documented in this encounter Administered Medications Inactive Administered Medications - up to 3 most recent administrations Medication Order MAR Action Action Date Dose Rate Site lidocaine HCL 2 % gel Inj 10 mL INTRA OP PER MD, ONCE, 1 dose, On 12/15/21 at 0208, STAT Given 12/15/2021 2:25 AM HST 10 mL documented in this encounter Active and Recently Administered Medications Times are shown in HST. Scheduled Medication Order 12/13/2021 12/14/2021 12/15/2021 lidocaine HCL 2 % gel Inj 10 mL (COMPLETED) INTRA OP PER MD, ONCE, 1 dose, On 12/15/21 at 0208, STAT 0225 (Given - Provid er: Brandy Brewer, TRENT) documented in this encounter Care Teams Parts Identification Technician Relationship Specialty Start Date End Date Ben Olmedo III, MD [address] [place] [phone] PCP - General Family Medicine 10/28/21 documented as of this encounter
--- OUTSIDE RECORDS SUMMARY | 2024-03-31 04:09 | XMS_ITS | Encounter Summary ---
Author Organization [facility] Address [address] [place] [address] Care Team Providers Care Director Orange Name Role Phone Shara LEWIS MD, Ben W Primary Care Provider + Reason for Visit * Auth/Cert Specialty Diagnoses / Procedures Referred By Tram griffin Referred To Contact Referral ID Status Reason Start Date Expiration Date Visits Re quested Visits Authorized [id number] 1 1 Encounter Details Date Type Department Care Team (Late st Contact Info) Description 01/09/2022 8:30 AM HST - 01/09/2022 9:35 AM HST Surgery [facility] [id number] [facility] [place] [address] Martin Smith MD [address] [facility] [address] IMAGING DEPT [place], [place] [id number] Lumbar Puncture with Fluoro Social History Tobacco Use Types Packs/Day Years [...] Sign Reading Time Taken Comments Blood Pressure 134/62 01/09/2022 9:35 AM HST Pulse 76 01/09/2022 9:35 AM HST Temperature 36.6 ??C (97.8 ??F) 01/09/2022 7:09 AM HS T Respiratory Rate 16 01/09/2022 9:35 AM HST Oxygen Saturation 99% 01/09/2022 9:35 AM HST Inhaled Oxygen Concentration - - Weight 70.3 kg (155 lb) 01/09/2022 7:09 AM HST Height 182.9 cm (6') 01/09/2022 7:09 AM HST Body Mass Index 21.02 01/09/2022 7:09 AM HST documented in this encounter Discharge Instructions * Discharge Instructions* Jessica Pratt RN - 01/09/2022 10:18 AM HST Additional instructions ACTIVITIES FOR TODAY: Rest as much as possible An adult should stay with you Do not drive or operate machinery Do not make important legal decisions Do not drink alcohol today or when taking narcotics Immediately report ANY of the following to your Physician: Difficulty breathing Persistent nausea or vomiting Unable to urinate Excessive bleeding DIET: Begin with clear liquids. Advance slowly to soups, puddings, light foods, etc. If you become nauseated, hold liquids and food for 30 minutes. Start again with clear liquids. Advance to your usual diet as tolerated. MEDICINES: Take only medicines ordered by your doctor(s). If your pain medicine does not help you or makes you sick, call your doctor. If taking a narcotic with acetaminophen do not take additional Tylenol. Take a stool softener if taking narcotic pain medication regularly to avoid constipation. * Attachments The following attachments cannot be sent through Care Everywhere. * LUMBAR PUNCTURE (DISCHARGE CARE) (GABONESE) documented in this encounter Medications at Time [...] Take 100 mg by mouth at bedtime. documented as of this encounter Progress Notes * Marlen Saba RN - 01/07/2022 1:05 PM HST Pre op teaching done by jaden saba RN Arrive at [address] N[address] after midnight (not even water ,gum,mints) and time of arrival given for day of surgery Shower protocol (night before and AM of surgery) with hibiclens soap from the neck down and after DOS shower do not put any lotions or chemicals on skin. Has ride home with a responsible adult (outpatients) Instructed that person is to remain on campus during procedure. Wear loose comfortable clothing, leave valuables at home ( bring picture ID and insurance card to hospital) remove jewelry and piercings Medications reviewed and reconciled with patient and advised which medications to take AM of surgery per anesthesia guidelines.see mar. Pt wants anesthesia Discharge planning needs discussed,patient should have a responsible adult to stay with them for 24hours. (outpatients) Pre op routine/ events,pain management, spiritual/cultural needs on day of surgery discussed Pt instructed to bring copy of advanced directives and power of environmental attorney papers DOS to be scanned into EMR during registration. Patient verbalizes understanding of all of the above documented in this encounter H&P Notes * Martin Smith MD - 01/09/2022 9:59 AM HST RADIOLOGY: HISTORY AND PHYSICAL ATTENDING: MARTIN SMITH DATE OF EXAMINATION: 01/09/2022 CHIEF COMPLAINT/REASON FOR PROCEDURE: Angio Dx: lumbar puncture - MS evaluation Significant Problems with Anesthesia: no PAST HISTORY: Illnesses: (If Yes, please describe) Cardiovascular Disease: No Pulmonary Disease: No Diabetes: No Reaction to Anesthesia: No Previous surgery: NA No Known Allergies No current facility-administered medications on file prior to encounter. Current Outpatient Medications on File Prior to Encounter Medication Sig Dispense Refill ??? HYDROcodone/acetaminophen 5-325 mg Oral Tablet Take 1 Tablet by mouth every 6 hours as needed for Pain - Moderate. Do not drive or operate [employer] 6 Tablet 0 ??? dutasteride (AVODART) 0.5 mg Oral Capsule Take 0.5 mg by mouth daily. ??? ALPRAZolam 0.5 mg Oral Tablet Take 0.5 mg by mouth 2 times a day. ??? escitalopram oxalate 10 mg Oral Tablet Take 10 mg by mouth every morning. ??? eszopiclone (LUNESTA) 3 mg Oral Tablet Take 3 mg by mouth at bedtime as needed for Sleep. ??? ATORVASTATIN CALCIUM (ATORVASTATIN PO) Take by mouth. ??? tamsulosin 0.4 mg Oral Capsule, Sustained Release 24HR Take 0.4 mg by mouth at bedtime. ??? amitriptyline 100 mg Oral Tablet Take 100 mg by mouth at bedtime. FAMILY/SOCIAL HISTORY: Non-contributory REVIEW OF SYSTEMS: (If Yes, please describe) Cardiac Disease: No Respiratory Disease: No Gastrointestinal Disease: No Genito-urinary Disease: No Neurological Disease: Yes. Evaluation for possible MS LABS: No results for input(s): PLTCT, CREATININE, INR, TOTBILI, GLUCOSEMETER, GLUCOSELAB in the last 168 hours. PHYSICAL EXAMINATION: (If abnormal, please describe) Vital Signs: Blood pressure (!) 128/106, pulse 71, temperature 36.6 ??C (97.8 ??F), temperature source Temporal, resp. rate 17, height 182.9 cm (6'), weight 70.3 kg (155 lb), SpO2 98 %. Airway: WNL Heart: Normal Chest: Normal Area being treated: INGRID LU Pre-sedation Evaluation Patient Name: Jens Ayala : 1945 Planned Procedure: routine lumbar puncture There are no problems to display for this patient. Past Medical History: Diagnosis Date ??? Cancer (CMS/HCC) ??? Kidney disease BPH ??? Pure hypercholesterolemia ??? Restless leg syndrome ??? Sleep disorder Past Surgical History: Procedure Laterality Date ??? HX KIDNEY/BLADDER/PROSTATE SURGERY prostate surgery ??? HX ORTHOPEDIC SURGERY Right 2009 [facility] Significant Problems with Anesthesia: no Tobacco Use: Social History Tobacco Use Smoking Status Never Smoker Smokeless Tobacco Never Used Alcohol Use: Social History Substance and Sexual Activity Alcohol Use No Drug Use: Social History Substance and Sexual Activity Drug Use No Prior to Admission medications Medication Sig Last Dose Start Date End Date Taking? Authorizing Provider HYDROcodone/acetaminophen 5-325 mg Oral Tablet Take 1 Tablet by mouth every 6 hours as needed for Pain - Moderate. Do not drive or operate [employer] 01/08/2022 at Unknown time 12/15/21 Yes Maddison Hope MD dutasteride (AVODART) 0.5 mg Oral Capsule Take 0.5 mg by mouth daily. 01/08/2022 at Unknown time YesMedhistory, Provider ALPRAZolam 0.5 mg Oral Tablet Take 0.5 mg by mouth 2 times a day. 01/08/2022 at Unknown time Yes Pt Reported, Med escitalopram oxalate 10 mg Oral Tablet Take 10 mg by mouth every morning. 01/08/2022 at Unknown timeYes Pt Reported, Med eszopiclone (LUNESTA) 3 mg Oral Tablet Take 3 mg by mouth at bedtime as needed for Sleep. 01/08/2022t Unknown time Yes Medhistory, Provider ATORVASTATIN CALCIUM (ATORVASTATIN PO) Take by mouth. 01/08/2022 at Unknown time Yes Pt Reported, Med tamsulosin 0.4 mg Oral Capsule, Sustained Release 24HR Take 0.4 mg by mouth at bedtime. 01/08/2022 at Unknown time Yes Pt Reported, Med amitriptyline 100 mg Oral Tablet Take 100 mg by mouth at bedtime. 01/08/2022 at Unknown time Yes Pt Reported, Med ALLERGIES: No Known Allergies Most Current Vital Signs: Vitals Temp: 36.6 ??C (97.8 ??F) (01/09/22708) Temp src: Temporal (01/09/22708) Pulse: 71 (01/09/22954) Respiratory Rate (BPM): 17 (01/09/22954) BP: (!) 128/106 (01/09/22954) SpO2 (%): 98 % (01/09/22954) Height: 182.9 cm (6') (01/09/22708) Weight: 70.3 kg (155 lb) (01/09/22708) Pertinent Physical Findings: Airway: WNL Mallampati score: I (soft palate, uvula, fauces, tonsillar pillars visible) Cardiovascular: WNL Respiratory: WNL Other: None [place] [employer] (ASA) Physical Status: 1 - Normal healthy patient Sedation Plan: Moderate Sedation: hypnotics and/or narcotics Patient interviewed and examined. Sedation plan including benefits, risks, and alternatives discussed with patient and/or patient's security systems sales representative. All questions answered. He/she/they indicate understanding and wish to proceed as discussed. Do not plan to use sedation other than oral ativan prior to procedure - 1mg PO documented in this encounter Procedure Notes * Martin Smith MD - 01/09/2022 10:02 AM HSTProcedure(s): LUMBAR PUNCTURE Radiology: History: symptoms of numbness - being evaluated for MS Procedure: routine lumbar puncture at the L5/S1 level - #20 spinal needle - normal opening pressure- removed 12 cc clear csf Specimen: sent to the lab Tolerated well without incident EBL: no external bleeding Sedation: pre procedure 1 mg ativan Plan: monitor for 30 minutes and discharge. documented in this encounter Miscellaneous Notes * Marlen Roth RN - 01/09/2022 10:57 AM HST Ride/responsible green party present with patient. Received discharge education and instructions and returned verbal understanding. Copy of instructions given. Patient received all belongings. Final vital signs stable. Pain goal met. Anesthesia evaluated patient and noted release for discharge. All questions answered, all needs met, escorted to car via wheelchair. * Jessica Ralph RN - 01/09/2022 10:12 AM HST Received patient from OR. Identity verified with OR it professional Sriram NEWMAN, antibiotics and IV fluids confirmed. Patient status stable, adequate ventilations, adequate circulation, no distress noted. Bedside report received from OR it professional and Anesthesia provider, all questions answered. Patient con nected to monitor, vital signs stable. Patient resting comfortably. documented in this encounter Plan of Treatment Not on file documented as of this encounter Procedures Procedure Name Priority Date/Time Associated Diagnosis Comments IGG SYNTHESIS RATE Routine 01/09/2022 10 :35 AM HST SERUM PROTEIN ELP Routine 01/09/2022 10: 35 AM HST MYELIN BASIC PROTEIN, CSF Routine 01/09/2022 9:40 AM HST OLIGOCLONAL BANDS, CSF Routine 01/09/2022 9:40 AM HST GLUCOSE, CSF Routine 01/09/2022 9:40 AM HST CSF CELL COUNT Routine 01/09/2022 9:40 AM HST IGG, CSF Routine 01/09/2022 9:40 AM HST LUMBAR PUNCTURE 01/09/2022 9:19 AM HST White matter disease Case Notes Large C-Arm CSF CELL COUNT Routine 01/09/2022 documented in this encounter Results * (ABNORMAL) Serum Protein ELP (01/09/2022 10:35 AM HST) Total Protein 5.9(L) 6.4 - 8.3 gm/dL [facility] Total Protein 5.9(L) 6.4 - 8.3 gm/dL [facility] Albumin 3.52(L) 3.80 - 5.20 gm/dL [facility] Alpha 1 0.23 0.10 - 0.25 gm/dL [facility] Alpha 2 0.93 0.50 - 1.05 gm/dL [facility] Beta 0.73 0.50 - 1.03 gm/dL [facility] Gamma 0.50(L) 0.51 - 1.47 gm/dL [facility] Interpretation SPE RESULT D [facility] Comment: HYPOALBUMINEMIA SUGGESTIVE OF MALNUTRITION OR SELECTIVE PROTEIN LOSS (NEPHROTIC SYNDROME). REVIEWED BY DR. GREG CHUN, PATHOLOGIST. 01/09/2022 10:3 5 AM HST 01/09/2022 10:48 AM HST Martin Smith MD SPECIAL CHEMISTRY-OR DERABLE LAB COUNTS INCLUDE [address] BEDS AT THE [facility] [phone] [place] [address] [facility] CENTRAL LAB [phone] [place] [address] * (ABNORMAL) IgG Synthesis Rate (send-out test) (01/09/2022 10:35 AM HST) Synthesis Rate IgG, CSF SEE NOTE [facility] Comment: ? Result: ? +1.2 ? Abnormal Flag: ? N ? Unit of measure: ? mg/24 h ? Reference range: ? -9.9 TO +3.3 IgG Index, CSF 0.54 [facility] Comment: EXPECTED VALUES: <0.66 Albumin, CSF 40.3 mg/dL [facility] Comment: EXPECTED VALUES: 8.0-42.0 IgG, CSF 3.7 mg/dL [facility] Comment: EXPECTED VALUES: 0.8-7.7 IgG, Serum 593(L) mg/dL [facility] Comment: EXPECTED VALUES: 600-1540 Albumin, Serum 3.5 g/dL [facility] Comment: EXPECTED VALUES: 3.2-4.6 The IgG Synthesis rate, CSF and IgG index, CSF are two formulae for estimating the amount of IgG produced in the central nervous system. Evidence of increased synthesis of IgG provides support for the diagnosis of multiple sclerosis. Test Performed at: [facility] [address] ? I Carmen LU, PhD, CELIA 01/09/2022 10:3 5 AM HST 01/09/2022 10:48 AM HST Martin Smith MD REFERENCE LAB-ORDERA BLE [facility] Organization Address City/State/ZIP Co de Phone Number [facility] [phone] [facility] [place] [address] [facility] [address] [place] [phone] * Myelin Basic Protein, CSF (01/09/2022 9:40 AM HST) Myelin Basic Protein <2.0 mcg/L [facility] Comment: EXPECTED VALUES: 2.0-4.0 ?? MBP Result ? Interpretation ?? 2.0-4.0 mcg/L ?Negative ?? 4.1-6.0 mcg/L ?Weakly Positive ?>6.0 mcg/L ?Positive This test was developed and its analytical performance characteristics have been determined by [facility]. It has not been cleared or approved by FDA. This assay has been validated pursuant to the CLIA regulations and is used for clinical purposes. Test Performed at: [facility] [address] ? I Carmen LU, PhD, CELIA CSF (CSF, Tube 3) 01/09/2022 9:40 AM HST 01/09/2022 10:47 AM HST Martin Smith MD BODY FLUID-ORDERABLE Performing Organization Address [facility]/ZIP Co de Phone Number LAB COUNTS INCLUDE 234 BEDS AT THE [facility] [phone] [place] [address] [facility] [address] [place] [phone] * (ABNORMAL) Oligoclonal Bands, CSF (01/09/2022 9:40 AM HST) Pathologist [facility] Oligoclonal IgG Bands, IEF SEE BELOW(A) [facility] Comment: EXPECTED VALUES: ABSENT The patient's CSF contains multiple restriction bands that are also present in the patient's corresponding serum sample. We are unable to define whether these gammaglobulins are of systemic or intracerebral origin. Oligoclonal bands are present in the CSF of more than 85% of patients with clinically definite multiple sclerosis (MS). To distinguish between oligoclonal bands in the CSF due to a peripheral gammopathy and oligoclonal bands due to local production in the MECHATRONICS TECHNICIAN, serum and CSF should be tested simultaneously. Oligoclonal bands can however be observed in a variety of other diseases, e.g., subacute sclerosing panencephalitis, inflammatory polyneuropathy, MECHATRONICS TECHNICIAN lupus, and brain tumors and infarctions. The clinical significance of a numerical band count, determined by isoelectric focusing, has not been definitively defined. The data should be interpreted in conjunction with all pertinent clinical and laboratory data for this patient. Test Performed at: [facility] [address] ??[id number] ? I Carmen LU, PhD, CELIA CSF (CSF, Tube 2) 01/09/2022 9:40 AM HST 01/09/2022 10:46 AM HST Martin Smith MD BODY FLUID-ORDERABLE Performing Organization Address [facility] Co de Phone Number [facility] [phone] [place] [address] [facility] [address] [place] [phone] * Cell Count, Spinal Fluid (01/09/2022 9:40 AM HST) Pathologist [facility] Tube No. 4 DLS [facility] Color COLORLESS [facility] Appearance CLEAR DLS [facility] Supernatant COLORLESS/ROSE MARIE R DLS [facility] RBC 7 /cu mm DLS [facility] WBC 2 /cu mm [facility] [place] Neutrophils 10 % DLS [facility] Lymphocytes 80 % DLS [facility] Monocytes 10 % [facility] [place] CSF (CSF, Tube 4) 01/09/2022 9:40 AM HST 01/09/2022 10:47 AM HST Martin Smith MD BODY FLUID-ORDERABLE LAB COUNTS INCLUDE 234 BEDS AT THE [facility] [phone] [email or web address] [address] [facility] [place] [phone] [place] [address] * IgG, CSF (01/09/2022 9:40 AM HST) Pathologist [facility] IgG, CSF 2.8 mg/dL [facility] Comment: EXPECTED VALUES: 0.8-7.7 Test Performed at: [facility] [address] ??[id number] ? I Carmen LU, PhD, CELIA CSF (CSF, Tube 3) 01/09/2022 9:40 AM HST 01/09/2022 10:46 AM HST Martin Smith MD BODY FLUID-ORDERABLE LAB COUNTS INCLUDE 234 BEDS AT THE [facility] [phone] [facility] [place] [address] [facility] [address] [place] [phone] * Glucose, CSF (01/09/2022 9:40 AM HST) Glucose, CSF 59 mg/dL [facility] Comment: CSF glucose values are approximately 60% of the plasma values and should be compared to a plasma value for clinical interpretation. CSF (CSF, Tube 3) 01/09/2022 9:40 AM HST 01/09/2022 10:47 AM HST Martin Smith MD BODY FLUID-ORDERABLE Performing Organization Address [facility] Co de Phone Number [facility] [phone] [place] [address] [facility] [place] [phone] [place] [address] * Cell Count, Spinal Fluid (01/09/2022) Tube No. 1 DLS [facility] Color COLORLESS DLS [facility] Appearance CLEAR DLS [facility] Supernatant COLORLESS/ROSE MARIE R DLS [facility] RBC 207 /cu mm DLS [facility] WBC 1 /cu mm DLS [facility] Neutrophils 37 % DLS [facility] Lymphocytes 43 % [facility] Monocytes 17 % DLS [facility] Eosinophils 3 % DLS [facility] CSF (CSF, Tube 1) 01/09/2022 022 10:44 AM HST Martin Smith MD BODY FLUID-ORDERABLE Performing Organization Address [facility] Co de Phone Number [facility] [phone] [place] [address] [facility] [place] [phone] [place] [address] documented in this encounter Visit Diagnoses Diagnosis White matter disease Other conditions of brain documented in this encounter Administered Medications Inactive Administered Medications - up to 3 most recent administrations Medication Order MAR Action Action Date Dose Rate Site LORAZEPAM 1 MG PO TABLET 1 dose, Starting on Naomy 01/09/22 at 0845, Until Naomy 01/09/22 at 0846, Bernie Lieberman: cabinet override LORazepam tab 1 mg Oral, ONCE, 1 dose, On Naomy 01/09/22 at 0844, Routine, If patient older than 70, do not exceed 2 mg/day. Given 01/09/2022 8:46 AM HST 1 mg documented in this encounter Active and Recently Administered Medications Times are shown in HST. Scheduled Medication Order 01/07/2022 01/08/2022 01/09/2022 LORazepam tab 1 mg (COMPLETED) Oral, ONCE, 1 dose, On Naomy 01/09/22 at 0844, Routine, If patient older than 70, do not exceed 2 mg/day. 0846 (Given - Provid er: Bernie Lieberman RN) documented in this encounter Care Teams Director Orange Relationship Specialty Start Date End Date eBn Olmedo III, MD [address] [place] [address] [phone] PCP - General Family Medicine 10/28/21 documented as of this encounter
--- OUTSIDE RECORDS SUMMARY | 2024-03-31 04:09 | XMS_ITS | Encounter Summary ---
Author Organization [facility] Address [address] [place] [address] Care Team Providers Care Riverboat Master Name Role Phone Shara LEWIS MD, Ben W Primary Care Provider + Reason for Visit * Reason Comments Retention, Urine Paulson leaking and no t draining to bag. Encounter Details Date Type Department Care Team (Late st Contact Info) Description 12/09/2021 9:55 PM HST - 12/10/2021 2:26 AM HST Emergency [facility] Emergency Dept [phone] [facility] [place] [address] Vinny Garcia MD [phone] [facility] [place] [phone] Discharge Disposition: D/C Home, Self Care Social [...] suspected to have Coronavirus/COVID-19? No / Unsure 12/09/2021 9:59 PM HST documented as of this encounter Last Filed Vital Signs Vital Sign Reading Time Taken Comments Blood Pressure 124/111 12/10/2021 1:00 AM HST Pulse 84 12/10/2021 1:00 AM HST Temperature 36.5 ??C (97.7 ??F) 12/09/2021 10:[address] Respiratory Rate 16 12/09/2021 10:05 PM HST Oxygen Saturation 98% 12/10/2021 1:00 AM HST Inhaled Oxygen Concentration - - Weight 72 kg (158 lb 11.2 oz) 12/09/2021 10:05 P M HST Height 182.9 cm (6') 12/09/2021 10:05 PM HST Body Mass Index 21.52 12/09/2021 10:05 PM HST documented in this encounter Discharge Instructions * Discharge Instructions* Vinny Garcia MD - 12/10/2021 1:58 AM HST Follow-up with Urology at next available appointment. Return to ER if catheter does not pass urine. * Attachments The following attachments cannot be sent through Care Everywhere. * Paulson Catheter Placement and Care (References) (Polish) documented in this encounter Medications at Time of Discharge Medication Sig Dispensed Refills Start Date End Date eszopiclone (LUNESTA) 3 mg Oral Tablet Take 3 mg by mouth at bedtime as needed for Sleep. ATORVASTATIN CALCIUM (ATORVASTATIN PO) Take by mouth. amitriptyline 100 mg Oral Tablet Take 100 mg by mouth at bedtime. nitrofurantoin monohydrate/nitrofurantoin macrocrystals (Macrobid) 100 mg Oral Capsule Take 1 Capsule by mouth 2 times a day with meals for 14 days. 28 Each 12/09/2021 12/23/2021 HYDROcodone/acetaminophen 5-325 mg Oral Tablet Take 1 Tablet by mouth every 6 hours as needed for Pain. 12/15/2021 documented as of this encounter Progress Notes * Emelina Crawford, RN - 12/09/2021 11:00 PM HST This RN floating from [place], answered patient call light. Patient c/o 8/10 stabbing, shooting penis pain, MD/RN notified, patient given PO percocet @ 2255 per stat order. Patient reports pain appeared episodic, subsiding to less intense sensation just prior to taking med. Patient reports it feels like I passed a stone. Urine from paulson +hematuria. Will continue to monitor and reassess pain. documented in this encounter Nursing Notes * Jeannine Baez RN - 12/09/2021 10:09 PM HST 12/09/212208 SDOH Screening Who is answering the SDOH [...] documented in this encounter ED Notes * Jeannine Baez RN - 12/10/2021 2:24 AM HST Jens Ayala was discharged from the Emergency Department ambulating, accompanied by no one. Patient/guardian verbalized understanding of all discharge instructions. Jesn Ayala received: no take home meds . Patient: was given narcotics or sedatives during this ED visit. Patient/Guardian verbalized understanding of safe discharge instructions including not mixing medications with alcohol or other sedatives, not making life-changing decisions such as signing legal documents, avoiding activities that may cause harm such as running, swimming, climbing, biking, etc, and avoiding driving a car,operating a motor vehicle or using heavy machinery until no longer under the influence of such medications, or 12 hours from discharge from the Emergency Department, whichever is longer. Identified safe transportation upon discharge: by self. Steady gait no influence from pain pill given.. Pain level 3/10, awake, alert, oriented x 3 and walks with steady gait. BP (!) 124/111 Pulse 84 Temp 36.5 ??C (97.7 ??F) (Temporal) Resp 16 Ht 182.9 cm (6') Wt 72 kg (158 lb 11.2 oz) [id number]% BMI 21.52 kg/m?? The patient received the following medications during their ED encounter: Administrations This Visit lidocaine HCL 2 % gel Inj 10 mL Admin Date 12/09/2021 Action Given Dose 10 mL Route INTRA OP PER Administered By Jeannine Baez RN oxyCODONE/acetaminophen (PERCOCET) 5 /325 mg tab 1 Tablet Admin Date 12/09/2021 Action Given Dose 1 Tablet Route Oral Administered By Emelina Crawford RN * Jeannine Baez RN - 12/10/2021 2:14 AM HST Paulson bag changed to leg bag . * Vinny Garcia MD - 12/10/2021 1:59 AM HST Jens Ayala, 76 year old male CSN: [id number] ED Date of Service: 12/09/2021 Arrival time:9:09 PM Arrival mode: Walked Chief Complaint Patient presents with ??? Retention, Urine Paulson leaking and not draining to bag. Initial C-SSRS Score: Low (12/09/21 2206) HPI HPI 76-year-old male presents to the ER complaining of urine leakage around his catheter. Patient has had multiple visits for catheter blockage and most recently was here yesterday. Of note, last urine culture from December 07 grew staph epidermidis that is broadly sensitive. Past Medical History: Diagnosis Date ??? Cancer [...] Prescriptions Last Dose Informant Patient Reported? Taking? nitrofurantoin monohydrate/nitrofurantoin macrocrystals (Macrobid) 100 mg Oral [...] by mouth at bedtime. Review of Systems 10 point review of systems positive as discussed in HPI otherwise negative Initial vital signs: BP: (!) 153/140, Pulse: 87, Resp: 16, Temp: 36.5 ??C (97.7 ??F), SpO2 (%): 98 %, Room Air/Liter Flow (LPM): Room air Most recent vital signs: BP: (!) 124/111, Pulse: 84, Resp: 16, Temp: 36.5 ??C (97.7 ??F), [...] breath sounds. Abdominal: Palpations: Abdomen is soft. Comments: Mild suprapubic tenderness without guarding Genitourinary: Penis: Normal. Musculoskeletal: General: Normal range of motion. Cervical back: Neck supple. Skin: General: Skin is warm and dry. Capillary Refill: Capillary refill takes less than 2 seconds. Neurological: General: No focal deficit present. Mental Status: He is alert. Mental status is at baseline. Psychiatric: Mood and Affect: Mood normal. Thought Content: Thought content normal. Procedures Procedures Data Reviewed Consults: None EKG: No orders of the defined types were placed in this encounter. Imaging: None Emergency Physician interpretation: No results found for this visit on 12/09/21. Lab: No results found for this visit on 12/09/21. All Medications ordered during this Encounter: Medications lidocaine HCL 2 % gel Inj 10 mL (10 mL INTRA OP PER MD Given 12/09/21 2240) oxyCODONE/acetaminophen (PERCOCET) 5 /325 mg tab 1 Tablet (1 Tablet Oral Given 12/09/21 2255) Medical Decision Making: Scoring Tools: MDM Bladder was irrigated with 3 L of normal saline and return is clear, discussed recommendations for close follow-up with urology and return precautions. Patient discharged home in stable condition. Patient states he has is supposed to have prostate surgery with Dr Alcantara but this is delayed as he has possible diagnosis of MS that needs work-up first. Critical Care Time: Clinical Impression: Acute retention of urine (primary encounter diagnosis) Hematuria, unspecified type Disposition: ED Dispo & COD ED Disposition Discharge Condition -- Date/Time ThuDec 10, 2021 1:59 AM Comment -- No discharge procedures on file. ED Prescriptions None Follow up provider: Ben Olmedo III, MD [address] [place] [phone] VINNY GARCIA Physician 12/10/2021 01:59 * Jeannine Baez RN - 12/10/2021 1:17 AM HST Up to bathroom with assist. Steady gait. No complaints. * Jeannine Baez RN - 12/10/2021 12:01 AM HST Urine pale clear pink no clots. CBI @ slow drip. documented in this encounter Plan of Treatment Not on file documented as of this encounter Visit Diagnoses Diagnosis Acute retention of urine- Primary Other specified retention of urine Hematuria, unspecified type documented in this encounter Administered Medications Inactive Administered Medications - up to 3 most recent administrations Medication Order MAR Action Action Date Dose Rate Site LIDOCAINE HCL 2 % MM JELP 1 dose, Starting on Thu12/09/21 at 2217, Until Thu12/09/21 at 2240, Jeannine Baez: cabinet override lidocaine HCL 2 % gel Inj 10 mL INTRA OP PER MD, ONCE, 1 dose, On Thu12/09/21 at 2246, STAT Given 12/09/2021 10:40 PM HST 10 mL oxyCODONE/acetaminophen (PERCOCET) 5 /325 mg tab 1 Tablet Oral, ONCE, 1 dose, On Thu12/09/21 at 2246, STAT, Total daily dosage of Oxycodone-Acetaminophen should not exceed mg (12 tablets) Given 12/09/2021 10:55 PM HST 1 Tablet documented in this encounter Active and Recently Administered Medications Times are shown in HST. Scheduled Medication Order 12/08/2021 12/09/2021 12/10/2021 lidocaine HCL 2 % gel Inj 10 mL (COMPLETED) INTRA OP PER MD, ONCE, 1 dose, On Thu12/09/21 at 2246, STAT 2240 (Given - Provider: Jeannine Baez RN - Comment: Used for paulson insertion) oxyCODONE/acetaminophen (PERCOCET) 5 /325 mg tab 1 Tablet (COMPLETED) Oral, ONCE, 1 dose, On Thu12/09/21 at 2246, STAT, Total daily dosage of Oxycodone-Acetaminophen should not exceed mg (12 tablets) 2255 (Given - Provider: Gilberto Cartwright RN) documented in this encounter Care Teams Riverboat Master Relationship Specialty Start Date End Date Ben Olmedo III, MD [address] [place] [phone] PCP - General Family Medicine 10/28/21 documented as of this encounter
--- OUTSIDE RECORDS SUMMARY | 2024-03-31 04:09 | XMS_ITS | Encounter Summary ---
Author Organization [facility] Address [address] [place] [address] Care Team Providers Care Senior Advisory Name Role Phone Shara LEWIS MD, Ben W Primary Care Provider + Reason for Visit * Reason Comments Tube replacement Pt states ward cath eter leaking and painful. Pt states hx of blood clots in urine which clogged and required ward placement. Encounter Details Date Type Department Care Team (Late st Contact Info) Description 12/09/2021 9:55 AM HST - 12/09/2021 2:32 PM HST Emergency [facility] Emergency Dept [phone] [facility] [place] [address] Florence Pruitt MD [phone] [facility] [place] [id number] Discharge Disposition: D/C Home, Self Care Social [...] to have Coronavirus/COVID-19? No / Unsure 12/09/2021 10:09 AM HST documented as of this encounter Last Filed Vital Signs Vital Sign Reading Time Taken Comments Blood Pressure 134/86 12/09/2021 12:25 PM HST Pulse 69 12/09/2021 12:24 PM HST Temperature 36.5 ??C (97.7 ??F) 12/09/2021 10:[address] Respiratory Rate 20 12/09/2021 10:15 AM HST Oxygen Saturation 99% 12/09/2021 12:24 PM HST Inhaled Oxygen Concentration - - Weight 72.6 kg (160 lb) 12/09/2021 10:15 AM HST Height 182.9 cm (6') 12/09/2021 10:15 AM HST Body Mass Index 21.7 12/09/2021 10:15 AM HST documented in this encounter Discharge Instructions * Attachments The following attachments cannot be sent through Care Everywhere. * Urinary Tract Infection in Men (AfterCare(R) Instructions(ER/ED)) (Maltese) documented in this encounter Medications at Time [...] as of this encounter ED Notes * Lana De Leon, TRENT - 12/09/2021 2:27 PM HST Jens Ayala was discharged from the Emergency Department ambulating, accompanied by no one. Patient/guardian verbalized understanding of all discharge instructions. Jens Ayala received: prescription given to patient/family. Patient: was NOT given narcotics or sedatives during this ED visit. Pain level 0=no pain, awake, alert, oriented x 3 and walks with steady gait. BP 134/86 Pulse 69 Temp 36.5 ??C (97.7 ??F) (Temporal) Resp 20 Ht 182.9 cm (6') Wt 72.6 kg (160 lb) SpO2 99% BMI 21.70 kg/m?? The patient received the following medications during their ED encounter: Administrations This Visit Iohexol (OMNIPAQUE) 350 MG/ML Inj 75 mL Admin Date 12/09/2021 Action Given Dose 75 mL Route Intravenous Administered By Yessy Clark * Lilian Greer RN - 12/09/2021 1:15 PM HST Pt taken to CT via gurney. Awaiting return. * Lilian Greer RN - 12/09/2021 12:39 PM HST Pt continues to be concerned about urinary issues. Attempted to irrigate new ward without success,60ml of NS inserted without resistance, no return of fluids. Additional irrigation held at this time. Pending lab results and CT scan. * iLlian Greer RN - 12/09/2021 11:42 AM HST Pt using call light. States that the urine is coming out around new ward cath. Liquid noted on ground. Dr Pruitt updated. Pending new orders. * Florence Pruitt MD - 12/09/2021 11:37 AM HST [address] [facility] [id number] ED Date of Service: 12/09/2021 Arrival time:9:36 AM Arrival mode: Walked CC: Chief Complaint Patient presents with ??? Tube replacement Pt states ward catheter leaking and painful. Pt states hx of blood clots in urine which clogged and required ward placement. HPI: Patient is a 76-year-old male with a history of BPH, hyperlipidemia, insomnia who had a recentFoley catheter placed for acute urinary retention who presents with leaking around Ward site. States that began just shortly after having his Ward catheter placed. He states he has pressure, pain from his bladder radiating into his penis when he feels as though the Ward is not draining adequately. Noticed 1 small red clots in the Ward bag. Otherwise denies fevers, chills, nausea, vomiting, back pain, bright red urine. Has a follow-up appointment with Dr. Alcantara of urology forthcoming. The history is provided by the patient. Tube replacement Associated symptoms: no abdominal pain, no chest pain, no cough, no ear pain, no fever, no rash, noshortness of breath, no sore throat and no vomiting : History Medical History: Past Medical History: Diagnosis Date ??? Cancer [...] HX ORTHOPEDIC SURGERY Right 2009 [facility] Meds: Prior to Admission Medications Prescriptions Last Dose Informant Patient Reported? Taking? cephALExin 500 mg Oral Capsule No No Take 1 Capsule by mouth every 6 hours for 5 days. HYDROcodone/acetaminophen 5-325 mg Oral Tablet Yes [...] and are negative. Initial vital signs: BP: 105/85, Pulse: 93, Resp: 20, Temp: 36.5 ??C (97.7 ??F), SpO2 (%): 99 %, Room Air/Liter Flow (LPM): Room air Most recent vital signs: BP: 134/86, Pulse: 69, Resp: 20, Temp: 36.5 ??C (97.7 ??F), SpO2 (%): 99 %, Room Air/Liter Flow (LPM): Room air Physical Exam Physical exam: INITIAL VITAL SIGNS: Reviewed by me. Please see nursing notes GENERAL: Well appearing. No apparent distress. HEAD: Atraumatic. EYES: Normal conjunctiva. Pupils equal, round, and reactive to light. EOMI. ENT: Normal external ears, nose, and mouth. NECK: Full range of motion. No meningismus. RESPIRATORY: Clear to auscultation bilaterally. CV: Regular rate and rhythm. No murmurs. Pulses 2+ x4 ABDOMEN: Soft, non-tender, non-distended. No guarding or rebound. Normal bowel sounds. : Ward catheter in place draining yellow urine, no observed leaking, Ward bag with small red clot, penis and testicles free of erythema or edema BACK: No midline or flank tenderness. SKIN: No petechiae or rashes. EXTREMITIES: No cyanosis or edema. NEUROLOGIC: Awake and alert. PSYCH: Normal mood and affect. Data Reviewed Consults: None Imaging: CT - IVP WITH 3D RECONSTRUCTION Emergency Physician interpretation: None Results for orders placed or performed during the hospital encounter of 12/09/[address] - IVP WITH 3D RECONSTRUCTION Collection Time: 12/09/21 1:25 PM Narrative Result Status: Finalized Authenticating Radiologist: Martin Smith Requestor: FLORENCE PRUITT Reason for Exam: ABDOMINAL PAIN, ACUTE, NONLOCALIZED; RETENTION OF URINE, INCOMPLETE BLADDER EMPTYING EXAM: CT - IVP WITH 3D RECONSTRUCTION HISTORY: ABDOMINAL PAIN, ACUTE, NONLOCALIZED; RETENTION OF URINE, INCOMPLETE BLADDER EMPTYING COMPARISON: None TECHNIQUE: Imaging was performed through the abdomen and pelvis prior to and following IV administration of 75 ml of Omnipaque contrast. 3D volume rendered images were performed. All CT scans at this facility are performed using dose modulation techniques appropriate to the performed exam including the following: automated exposure control; adjustment of the mA and/or kV according to patient size (this includes techniques or standardized protocols for targeted exams where dose is matched to indication/reason for exam; i.e. extremities or head); and/or use of iterative reconstruction technique. FINDINGS: KIDNEYS: The kidneys enhance in a normal manner. No intrarenal calculi or hydronephrosis. Multiple renal cortical cysts are present bilateral with the largest cyst in the upper pole of the left kidney measuring 5.5 cm in diameter. Delayed imaging visualizes the pelvic calyceal systems bilateral. No significant abnormality. The ureters are not distended. LOWER CHEST: The lower lung arellano are clear. No infiltrates. No pleural effusion. Heart not grossly enlarged. LIVER: Liver is normal in size and attenuation. Of incidental note is interposition of colon between the right lobe of the liver and the anterior abdominal wall. A small 7 mm diameter low attenuating lesion in the left lobe of the liver is present. Too small to accurately characterize but possibly is an incidental cyst. GALLBLADDER AND BILE DUCTS: Unremarkable. No biliary ductal dilation. PANCREAS: Unremarkable SPLEEN: Unremarkable ADRENALS: No adrenal mass or thickening. BOWEL: Nondilated stomach, small bowel and colon. No bowel obstruction or abnormal bowel wall thickening. MESENTERY AND RETROPERITONEUM: No free air, free fluid or lymphadenopathy. VESSELS: Nonaneurysmal aorta. REPRODUCTIVE ORGANS: No free pelvic fluid. The prostate is grossly enlarged measuring 6.2 x 6.8 x 8 cm. A Ward catheter is in place. The prostate bulges into the urinary bladder. A rim of tissue is present just posterior to the bladder outlet. This has the appearance of a bar of tissue probably prostatic in origin crossing the bladder floor. Cystoscopy likely required to rule out a bladder tumor. ABDOMINAL WALL: Within normal limits. BONES: No suspicious or destructive osseous lesions. Impression IMPRESSION: 1. ASIDE FROM RENAL CORTICAL CYSTS NO EVIDENCE OF RENAL CALCULI OR HYDRONEPHROSIS. 2. A WARD CATHETER IS IN PLACE DECOMPRESSING THE URINARY BLADDER. THE PROSTATE IS GROSSLY ENLARGED. A BAR TISSUE CROSSES THE LATTER FOR POSTERIOR TO THE URINARY OUTLET. THIS LIKELY IS A COMPONENT OF THE PROSTATE. ELECTRONICALLY SIGNED BY: MARTIN SMITH WORKSTATION ID: [id number] Lab: Results for orders placed or performed during the hospital encounter of 12/09/21 1. Comp. Metabolic Panel Result Value Glucose 110 (H) BUN 23 Creatinine 1.1 eGFR CKD-EPI Cr 2020 70 (L) Sodium 138 Potassium 4.4 Chloride 103 CO2 23 Anion Gap 16 Calcium 9.3 SGOT (AST) 18 SGPT (ALT) 18 Alkaline Phosphatase 126 Bilirubin, Total 0.4 Total Protein 6.9 Albumin 4.0 2. CBC W/ Diff and Platelet Count Result Value White Blood Count 6.51 Red Blood Cell Count 4.29 Hemoglobin 13.7 Hematocrit 40.5 MCV 94.4 MCH 31.9 MCHC 33.8 RDW 14.1 Platelet Count 195 Imm Granulocyte 0.2 Neutrophil 76.2 (H) Lymphocyte 14.7 Monocyte 6.9 Eosinophil 1.5 Basophil 0.5 Abs Imm Granulo 0.01 Abs Neutrophils 4.96 Abs Lymphocytes 0.96 (L) 3. Urinalysis Reflex To C&S Result Value Color YELLOW Appearance CLOUDY Specific [place] 1.015 pH 5.5 Protein 2+ (H) Glucose NEG Ketones NEG Urobilinogen <2.0 Bilirubin NEG Blood LARGE (H) Leukocyte Esterase MOD (H) Nitrite NEG WBC 21-50 (H) RBC >100 (H) Bacteria MANY (H) Epit, Renal PRESENT (H) Other RESULT Urine Culture/Sensitivity REFER TO THE MICROBIOLOGY SECTION OF REPORT ED Course/Medical Decision Making: MDM 76-year-old male who presents with leaking around Ward catheter Per chart review, patient last visited this emergency department 2 days prior, had a Ward catheterplaced at that time was found to have an infection and discharged on Keflex. Patient connected to pulse oximetry and director cardiac Ward catheter irrigated, then exchanged Basic labs, urine and CT ordered Differential diagnoses include clogged Ward catheter, bladder tumor, prostate tumor, UTI, others Labs reassuring, no significant leukocytosis. Urine grossly positive for infection. CT demonstratesFoley catheter in place, with decompression of the bladder. No significant masses or abnormalities identified. Per microbiology report on urine culture from 2 days prior, patient's sensitivity to Macrobid. Given possible failure with Keflex, will trial Macrobid, given patient strict ED return precautions for infectious symptoms that would require him to return the emergency department for IV antibiotics. Patient has follow-up with Dr. Alcantara in the next few days. Clinical Impression: Cystitis (primary encounter diagnosis) Ward catheter problem, initial encounter ([facility]) Disposition: ED Dispo & COD ED Disposition Discharge Condition -- Date/Time ThuDec 09, 2021 2:18 PM Comment -- No discharge procedures on file. ED Prescriptions Medication Sig Dispense Start Date End Date Auth. Provider nitrofurantoin monohydrate/nitrofurantoin macrocrystals (Macrobid) 100 mg Oral Capsule Take 1 Capsule by mouth 2 times a day with meals for 14 days. 28 Each 12/09/2021 12/23/2021 Florence Pruitt MD Follow up provider: Ben Olmedo III, MD [phone] [facility] [phone] Schedule an appointment as soon as possible for a visit in 2 days FLORENCE PRUITT Physician 12/09/2021 14:21 * Lilian Greer RN - 12/09/2021 10:45 AM HST To bedside to assess pt. Pt with approx 150ml of urine output in ward. States that urine was a recent void. Small blood clot noted in leg bag. Attempted to obtain a new urine sample from ward tubing without success. Pt states that approx 50% of urine is coming out around ward, but if given approx 15 mins that he will have urine to collect in bag. New leg bag placed. Dr Pruitt updated on status. Awaiting urine sample and possible new ward placement. documented in this encounter Plan of Treatment Not on file documented as of this encounter Procedures Procedure Name Priority Date/Time Associated Diagnosis Comments CT - IVP WITH 3D RECONSTRUCTION STAT 12/09/2021 1:25 PM HST COMPREHENSIVE METABOLIC PROFILE STAT 12/09/2021 11:55 AM HST CBC W/ DIFF AND PLATELET CT STAT 12/09/2021 11:55 AM HST PROSTATE SPECIFIC AG (PSA), TOTAL STAT 12/09/2021 11:55 AM HST CATH URINE CULTURE STAT 12/09/2021 11 :50 AM HST URINALYSIS, COMPLETE, REFLEX TO C & S STAT 12/09/2021 11:50 AM HST documented in this encounter Results * CT - IVP WITH 3D RECONSTRUCTION (12/09/2021 1:25 PM HST) Anatomical Region Laterality Modality Abdomen, Pelvis Computed Tomogra phy 12/09/2021 1:35 PM HST Impressions 12/09/2021 1:50 PM HST IMPRESSION: 1. ??ASIDE FROM RENAL CORTICAL CYSTS NO EVIDENCE OF RENAL CALCULI OR HYDRONEPHROSIS. 2. ??A WARD CATHETER IS IN PLACE DECOMPRESSING THE URINARY BLADDER. THE PROSTATE IS GROSSLY ENLARGED. A BAR TISSUE CROSSES THE LATTER FOR POSTERIOR TO THE URINARY OUTLET. THIS LIKELY IS A COMPONENT OF THE PROSTATE. ELECTRONICALLY SIGNED BY: ??MARTIN SMITH WORKSTATION ID: [id number] Narrative 12/09/2021 1:50 PM HST Result Status: Finalized Authenticating Radiologist: Martin Smith Requestor: FLORENCE PRUITT Reason for Exam: ABDOMINAL PAIN, ACUTE, NONLOCALIZED; RETENTION OF URINE, INCOMPLETE BLADDER EMPTYING EXAM: CT - IVP WITH 3D RECONSTRUCTION ?? HISTORY: ABDOMINAL PAIN, ACUTE, NONLOCALIZED; RETENTION OF URINE, INCOMPLETE BLADDER EMPTYING COMPARISON: None TECHNIQUE: Imaging was performed through the abdomen and pelvis prior to and following IV administration of 75 ml of Omnipaque contrast. ??3D volume rendered images were performed. All CT scans at this facility are performed using dose modulation techniques appropriate to the performed exam including the following: ??automated exposure control; adjustment of the mA and/or kV according to patient size (this includes techniques or standardized protocols for targeted exams where dose is matched to indication/reason for exam; i.e. extremities or head); and/or use of iterative reconstruction technique. FINDINGS: KIDNEYS: The kidneys enhance in a normal manner. No intrarenal calculi or hydronephrosis. Multiple renal cortical cysts are present bilateral with the largest cyst in the upper pole of the left kidney measuring 5.5 cm in diameter. Delayed imaging visualizes the pelvic calyceal systems bilateral. No significant abnormality. The ureters are not distended. LOWER CHEST: ?? The lower lung arellano are clear. No infiltrates. No pleural effusion. Heart not grossly enlarged. LIVER: Liver is normal in size and attenuation. ??Of incidental note is interposition of colon between the right lobe of the liver and the anterior abdominal wall. A small 7 mm diameter low attenuating lesion in the left lobe of the liver is present. Too small to accurately characterize but possibly is an incidental cyst. GALLBLADDER AND BILE DUCTS: Unremarkable. ??No biliary ductal dilation. PANCREAS: Unremarkable SPLEEN: Unremarkable ADRENALS: No adrenal mass or thickening. BOWEL: Nondilated stomach, small bowel and colon. ??No bowel obstruction or abnormal bowel wall thickening. MESENTERY AND RETROPERITONEUM: No free air, free fluid or lymphadenopathy. VESSELS: ??Nonaneurysmal aorta. REPRODUCTIVE ORGANS: No free pelvic fluid. The prostate is grossly enlarged measuring 6.2 x 6.8 x 8 cm. A Ward catheter is in place. The prostate bulges into the urinary bladder. A rim of tissue is present just posterior to the bladder outlet. This has the appearance of a bar of tissue probably prostatic in origin crossing the bladder floor. Cystoscopy likely required to rule out a bladder tumor. ABDOMINAL WALL: Within normal limits. BONES: No suspicious or destructive osseous lesions. ? Procedure Note Martin Smith MD - 12/09/2021 Result Status: Finalized Authenticating Radiologist: Martin Smith Requestor: FLORENCE PRUITT Reason for Exam: ABDOMINAL PAIN, ACUTE, NONLOCALIZED; RETENTION OF URINE,INCOMPLETE BLADDER EMPTYING EXAM: CT - IVP WITH 3D RECONSTRUCTION HISTORY: ABDOMINAL PAIN, ACUTE, NONLOCALIZED; RETENTION OF URINE,INCOMPLETE BLADDER EMPTYING COMPARISON: None TECHNIQUE: Imaging was performed through the abdomen and pelvis prior toand following IV administration of 75 ml of Omnipaque contrast. 3D volume rendered imageswere performed. All CT scans at this facility are performed using dose modulationtechniques appropriate to the performed exam including the following: automated exposure control;adjustment of the mA and/or kV according to patient size (this includes techniques orstandardized protocols for targeted exams where dose is matched to indication/reason for exam; i.e.extremities or head); and/or use of iterative reconstruction technique. FINDINGS: KIDNEYS: The kidneys enhance in a normal manner. No intrarenal calculi orhydronephrosis. Multiple renal cortical cysts are present bilateral with the largest cystin the upper pole of the left kidney measuring 5.5 cm in diameter. Delayed imaging visualizesthe pelvic calyceal systems bilateral. No significant abnormality. The ureters are notdistended. LOWER CHEST: The lower lung arellano are clear. No infiltrates. No pleuraleffusion. Heart not grossly enlarged. LIVER: Liver is normal in size and attenuation. Of incidental note isinterposition of colon between the right lobe of the liver and the anterior abdominal wall. Asmall 7 mm diameter low attenuating lesion in the left lobe of the liver is present. Too small toaccurately characterize but possibly is an incidental cyst. GALLBLADDER AND BILE DUCTS: Unremarkable. No biliary ductal dilation. PANCREAS: Unremarkable SPLEEN: Unremarkable ADRENALS: No adrenal mass or thickening. BOWEL: Nondilated stomach, small bowel and colon. No bowel obstruction orabnormal bowel wall thickening. MESENTERY AND RETROPERITONEUM: No free air, free fluid orlymphadenopathy. VESSELS: Nonaneurysmal aorta. REPRODUCTIVE ORGANS: No free pelvic fluid. The prostate is grosslyenlarged measuring 6.2 x 6.8 x 8 cm. A Ward catheter is in place. The prostate bulges into theurinary bladder. A rim of tissue is present just posterior to the bladder outlet. This has theappearance of a bar of tissue probably prostatic in origin crossing the bladder floor. Cystoscopylikely required to rule out a bladder tumor. ABDOMINAL WALL: Within normal limits. BONES: No suspicious or destructive osseous lesions. IMPRESSION: IMPRESSION: 1. ASIDE FROM RENAL CORTICAL CYSTS NO EVIDENCE OF RENAL CALCULI ORHYDRONEPHROSIS. 2. A WARD CATHETER IS IN PLACE DECOMPRESSING THE URINARY BLADDER. THEPROSTATE IS GROSSLY ENLARGED. A BAR TISSUE CROSSES THE LATTER FOR POSTERIOR TO THE URINARYOUTLET. THIS LIKELY IS A COMPONENT OF THE PROSTATE. ELECTRONICALLY SIGNED BY: MARTIN SMITH WORKSTATION ID: [id number] Florence Pruitt MD CAT SCAN-ORDERABLE * (ABNORMAL) PSA Total (Prostate Specific Ag (PSA), Total) (12/09/2021 11:55 AM HST) PSA, Total 23.50(H) 0.00 - 6.90 ng/mL [facility] Comment: Age Group ? Age Related Reference Range 40 - 49 years ?0.00 - 2.40 ng/mL 50 - 59 ?0.00 - 3.80 60 - 69 ?0.00 - 5.60 ?>69 ?0.00 - 6.90 PSA,TOTAL result was obtained with the [employer]ys TPSA assay. Results from assays of other manufacturers cannot be used interchangeably. 12/09/2021 11:5 5 AM HST 12/09/2021 12:21 PM HST Florence Pruitt MD SPECIAL CHEMISTRY-OR DERABLE LAB [facility] [phone] [place] [address] [facility] [phone] [place] [address] * (ABNORMAL) CBC W/ Diff and Platelet Count (12/09/2021 11:55 AM HST) [facility] White Blood Count 6.51 3.80 - 10.80 x10(3)/uL [facility] Red Blood Cell Count 4.29 4.00 - 6.20 x10(6)/uL [facility] Hemoglobin 13.7 13.7 - 17.5 g/dL [facility] Hematocrit 40.5 40.1 - 51.0 % [facility] MCV 94.4 79.4 - 98.[address] [facility] MCH 31.9 26.0 - 34.[address] [facility] MCHC 33.8 32.0 - 36.0 g/dL [facility] RDW 14.1 11.6 - 14.4 % [facility] Platelet Count 195 151 - 424 x10(3)/uL [facility] Imm Granulocyte 0.2 0.0 - 1.0 % [facility] Neutrophil 76.2(H) 34.0 - 72.0 % [facility] Lymphocyte 14.7 12.0 - 44.0 % [facility] Monocyte 6.9 0.0 - 12.0 % [facility] Eosinophil 1.5 0.0 - 7.0 % [facility] Basophil 0.5 0.0 - 2.0 % [facility] Abs Imm Granulo 0.01 0.0 - 0.10 x10(3)/uL [facility] Abs Neutrophils 4.96 1.56 - 6.20 x10(3)/uL [facility] Abs Lymphocytes 0.96(L) 1.18 - 3.74 x10(3)/uL [facility] 12/09/2021 11:5 5 AM HST 12/09/2021 12:03 PM HST Florence Pruitt MD HEMATOLOGY-ORDERABLE LAB [facility] [phone] [place] [address] [facility] [phone] [facility] [place] [address] * (ABNORMAL) Comp. Metabolic Panel (12/09/2021 11:55 AM HST) Glucose 110(H) 70 - 99 mg/dL [facility] BUN 23 6 - 23 mg/dL [facility] Creatinine 1.1 0.6 - 1.4 mg/dL [facility] eGFR CKD-EPI Cr 2020 70(L) >=90* mL/min/1.7 3m(2) [facility] Comment: This CKD-EPI 2020 equation does not use a race coefficient. eGFR declines with age beginning at 40 years old, and it continues at a rate of approximately 10% per decade (Clin Kidney J.2017.10(4):545). Sodium 138 133 - 145 mEq/L [facility] Potassium 4.4 3.3 - 5.1 mEq/L [facility] Chloride 103 95 - 108 mEq/L [facility] CO2 23 21 - 30 mEq/L [facility] Anion Gap 16 14 - 20 mEq/L [facility] Calcium 9.3 8.3 - 10.5 mg/dL [facility] SGOT (AST) 18 0 - 40 IU/L [facility] SGPT (ALT) 18 0 - 41 IU/L [facility] Alkaline Phosphatase 126 35 - 129 IU/L [facility] Bilirubin, Total 0.4 0 - 1.2 mg/dL [facility] Total Protein 6.9 6.4 - 8.3 gm/dL [facility] Albumin 4.0 3.5 - 5.2 gm/dL [facility] Blood 12/09/2021 11:5 5 AM HST 12/09/2021 12:03 PM HST Florence Pruitt MD CHEMISTRY-ORDERABLE Performing Organization Address City/[facility]/ZIP Co de Phone Number LAB [facility] [phone] [facility] [place] [address] [facility] [phone] [facility] [place] [address] * Urine Culture, Cath (12/09/2021 11:50 AM HST) Report Status FINAL [facility] Urine Culture Details RESULT [facility] Comment:No growth (<1,000 or ganisms/ml) Urine (Urine, Cath-Ward) 12/09/2021 11:50 AM HST 12/09/2021 11:53 AM HST Florence Pruitt MD MICROBIOLOGY-ORDERAB LE Performing Organization Address City/[facility] Co de Phone Number LAB [facility] [phone] [facility] [place] [address] [facility] [phone] [place] [address] * (ABNORMAL) Urinalysis Reflex To C&S (12/09/2021 11:50 AM HST) Color YELLOW [facility] Appearance CLOUDY [facility] Specific [place] 1.015 1.005 - 1.030 [facility] pH 5.5 5.0 - 7.5 [facility] Protein 2+(H) NEGATIVE [facility] Glucose NEG NEGATIVE [facility] Ketones NEG NEGATIVE [facility] Urobilinogen <2.0 <2.0 mg/dL mg/dL [facility] Bilirubin NEG NEGATIVE [facility] Blood LARGE(H) NEGATIVE DLS [facility] Leukocyte Esterase MOD(H) NEGATIVE DLS [facility] Nitrite NEG [facility] 21-50(H) 0-5 WBC/hpf /hpf [facility] RBC >100(H) 0-2 RBC/hpf /hpf [facility] Bacteria MANY(H) NONE /hpf [facility] Epit, Renal PRESENT(H) NONE /hpf [facility] Other RESULT [facility] Comment: Urine sediment results may not be accurate due to the small sample volume. ??Please correlate with the clinical findings and follow up as clinically indicated. Urine Culture/Sensiti vity REFER TO THE MICROBIOLOGY SECTION OF REPORT [facility] Urine (Urine, Cath-Ward) 12/09/2021 11:50 AM HST 12/09/2021 12:04 PM HST Florence Pruitt MD URINALYSIS-ORDERABLE [facility] [phone] [place] [address] [facility] [phone] [place] [address] documented in this encounter Visit Diagnoses Diagnosis Cystitis- Primary Cystitis, unspecified Ward catheter problem, initial encounter ([facility]) documented in this encounter Administered Medications Inactive Administered Medications - up to 3 most recent administrations Medication Order MAR Action Action Date Dose Rate Site Iohexol (OMNIPAQUE) 350 MG/ML Inj 75 mL Intravenous, ONCE, 1 dose, On Thu12/09/21 at 1300, Routine Given 12/09/2021 1:14 PM HST 75 mL Right Antecubital documented in this encounter Active and Recently Administered Medications Times are shown in HST. Scheduled Medication Order 12/07/2021 12/08/2021 12/09/2021 Iohexol (OMNIPAQUE) 350 MG/ML Inj 75 mL (COMPLETED) Intravenous, ONCE, 1 dose, On Thu12/09/21 at 1300, Routine 1314 (Given - Provid er: Yessy Clark) documented in this encounter Care Teams Senior Advisory Relationship Specialty Start Date End Date Ben Olmedo III, MD [address] [place] [phone] PCP - General Family Medicine 10/28/21 documented as of this encounter
--- OUTSIDE RECORDS SUMMARY | 2024-03-31 04:09 | XMS_ITS | Encounter Summary ---
Author Organization [facility] Address [address] [place] [address] Care Team Providers Care Green Building Engineer Name Role Phone Shara LEWIS MD, Ben W Primary Care Provider + Reason for Visit * Reason Comments Elbow Pain KALEB elbow pain, Rt>L t Encounter Details Date Type Department Care Team (Late st Contact Info) Description 11/20/2021 9:15 AM HST Office Visit [facility] [phone] [facility] [address] [place] [address] Zbigniew Saavedra MD [phone] [facility] [address] [place] [phone] Pain of both elbows (Primary Dx); Chronic elbow pain, unspecified laterality; Lateral epicondylitis, unspecified laterality Discharge Disposition: D/C Home, Self Care Social [...] have Coronavirus / COVID-19? No / Unsure 11/20/2021 9:19 AM HST documented as of this encounter Last Filed Vital Signs Vital Sign Reading Time Taken Comments Blood Pressure 108/64 11/20/2021 9:27 AM HST Pulse 84 11/20/2021 9:27 AM HST Temperature 36.4 ??C (97.5 ??F) 11/20/2021 9:27 AM HS T Respiratory Rate 18 11/20/2021 9:27 AM HST Oxygen Saturation 98% 11/20/2021 9:27 AM HST Inhaled Oxygen Concentration - - Weight 73.3 kg (161 lb 9.6 oz) 11/20/2021 9:27 A M HST Height 182.9 cm (6' 0.01) 11/20/2021 9:27 AM HS T Body Mass Index 21.91 11/20/2021 9:27 AM HST documented in this encounter Progress Notes * Zbigniew Saavedra MD - 11/20/2021 9:15 AM HST CLINIC NOTE Chief Complaint: Chief Complaint Patient presents with ??? Elbow Pain KALEB elbow pain, Rt>Lt Subjective: Jens Ayala is a 76 year old male who had concerns including Elbow Pain (KALEB elbow pain, Rt>Lt).. Patient presents for evaluation of bilateral elbow pain right greater than left. He states he has had chronic recurrent pain. Remotely the patient had right tennis elbow surgery but the exact procedure is not clear and I have no operative note. He has had no isolated injury but his symptoms are activity related. He has had previous medial epicondylitis but this is less notable. Most pain is lateral. He has been using tennis elbow straps. He has no mechanical symptoms or effusion. His range of motion is full. His was recently diagnosed with dementia and his activity level is increasing. He is also had medical issues as well. He is going to neurology for evaluation of possible MS as well as urology for possible prostate cancer. He denies any numbness or tingling either upper extremity. No neurologic decline. No edema or circulatory change. Presents for evaluation treatment recommendations. No Known Allergies Past Medical History: Diagnosis [...] on file. Outpatient Encounter Medications as of 11/20/2021 Medication Sig Dispense Refill ??? HYDROcodone/acetaminophen 5-325 [...] Take 100 mg by mouth at bedtime. ??? [DISCONTINUED] phenazopyridine (Pyridium) 200 mg Oral Tablet Take 1 Tablet by mouth 3 times a day as needed for Dysuria. (Patient not taking: Reported on 11/06/2021) 10 Tablet 0 Facility-Administered Encounter Medications as of 11/20/2021 Medication Dose Route Frequency Provider Last Rate Last Admin ??? triamcinolone acetonide (KENALOG) Inj 40 mg 40 mg Intramuscular Once Zbigniew Saavedra MD ??? lidocaine hcl (local anesth.) (Xylocaine) 1 % Inj Locally Once Zbigniew Saavedra MD ??? triamcinolone acetonide (KENALOG) Inj 40 mg 40 mg Intramuscular Once Zbigniew Saavedra MD ??? lidocaine hcl (local anesth.) (Xylocaine) 1 % Inj Locally Once Zbigniew Saavedra MD Review of Systems: The patient's complete review of systems was obtained on the initial intake form. Please see the separate document which was reviewed. Pertinent review of systems are included in the history of present illness along with the musculoskeletal complaints. Remaining review of systems listed are unremarkable or unrelated to the patient's present orthopedic complaint. Objective: BP 108/64 (Taken On: Rt upper arm, Patient Position: Sitting, Cuff size: regular) Pulse 84 Temp36.4 ??C (97.5 ??F) (Infrared) Resp 18 Ht 182.9 cm (6' 0.01) Wt 73.3 kg (161 lb 9.6 oz) SpO2 98% BMI 21.91 kg/m?? Physical Examination: (If abnormal, please describe) GENERAL: Appears well-developed and well-nourished and appears in no acute distress. PSYCH: Patient's mental status and affect are grossly clinically normal. SKIN: The skin around both elbows is benign. No bursitis. Previous right elbow incision intact and benign. VASCULAR: He has excellent radial pulses and no distal edema. NEURO: The patient has no intrinsic atrophy in the hand. Negative elbow Tinel's. He has no isolatedsensory deficit. All motor functions within normal limits. ORTHO: Exam shows no effusion or soft tissue swelling. No redness or warmth. No bursitis. Range of motion is full. Flexibility testing is painful bilaterally including both lateral epicondyle and medial epicondyle discomfort. He is exquisitely tender lateral epicondyle slightly worse on the left than right. On the right side the tenderness is also over the lower radial head neck region. I do not detect any instability with pronation and supination. Testing: X-rays ordered and personally reviewed. XRAY - ELBOW 3V (AP, LATERAL & OBLIQUE) Result Date: 11/20/2021 [facility] - Orthopedic Radiology Report Left elbow x-ray series negative for acute pathology including fracture dislocation. No effusion. No notable degenerative changes. Soft tissues unremarkable. INDICATION: Chronic left elbow pain. XRAYS: Left elbow x-ray series as above. INTERPRETATION: Left elbow x-ray series negative for acute pathology including fracture dislocation. No effusion. No notable degenerative changes. Soft tissues unremarkable. XRAY - ELBOW 3V (AP, LATERAL & OBLIQUE) Result Date: 11/20/2021 [facility] - Orthopedic Radiology Report Right elbow x-rays negative for acute pathology including fracture dislocation. No effusion. No significant degenerative changes. Soft tissue unremarkable. INDICATION: Right elbow pain, history of tennis elbow surgery. XRAYS: Right elbow x-ray series as above. INTERPRETATION: Right elbow x-rays negative for acute pathology including fracture dislocation. No effusion. No significant degenerative changes. Soft tissue unremarkable. Assessment: 1. Pain of both elbows XRAY - ELBOW 3V (AP, LATERAL & OBLIQUE) XRAY - ELBOW 3V (AP, LATERAL & OBLIQUE) 2. Chronic elbow pain, unspecified laterality 3. Lateral epicondylitis, unspecified laterality Bilateral elbow pain currently most suspicious for lateral epicondylitis clinically left greater than right. History of right tennis elbow release although the exact technique is not known. Plan: X-rays and clinical findings were reviewed. He understands his right elbow will be difficult with regard to treatment as I do not know exactly what was done. We did emphasize our initial conservative approach including heat and stretching. We discussed various tennis elbow straps. Ice after activity. Anti- inflammatories either topical or oral may be considered as medically allowed. We discussed the possibility of cortisone injections for palliative purposes as well as MRI for better investigation of exact pathology. At this point given all of his other medical issues a conservative nonsurgical approach obviously would be best. We agreed to start with cortisone injections and proceed from there. After reviewing the potential risks and side effects along with the benefits associated with cortisone injections including the potential for infection, local irritation, fat atrophy and skin discoloration, the patient agreed to proceed with the injections. Both the right and left lateral epicondyle regions were treated in a similar fashion. Both injection sites were prepped with a combination ofBetadine and alcohol. Each site was also anesthetized with 2 cc of 1% lidocaine. At this point boththe right AND left lateral epicondyle regions were injected with a combination of 40 mg of Kenalog and 2 cc of 1% lidocaine. The procedures were well-tolerated. Patient was instructed to call for any problems or concerns. No orders of the defined types were placed in this encounter. Follow-up and Disposition ?? Return if symptoms worsen or fail to improve. Zbigniew Saavedra MD documented in this encounter Plan of Treatment Not on file documented as of this encounter Results * XRAY - ELBOW 3V (AP, LATERAL & OBLIQUE) (11/20/2021 9:37 AM HST) Anatomical Region Laterality Modality Elbow Computed Radiogr aphy Impressions 11/20/2021 1:21 PM HST Right elbow x-rays negative for acute pathology including fracture dislocation. ??No effusion. ??No significant degenerative changes. ?? Soft tissue unremarkable. INDICATION: Right elbow pain, history of tennis elbow surgery. XRAYS: Right elbow x-ray series as above. INTERPRETATION: Right elbow x-rays negative for acute pathology including fracture dislocation. ??No effusion. ??No significant degenerative changes. ?? Soft tissue unremarkable. Narrative 11/20/2021 1:21 PM HST [facility] - Orthopedic Radiology Report Zbigniew Saavedra MD XRAY-ORDERABLE * XRAY - ELBOW 3V (AP, LATERAL & OBLIQUE) (11/20/2021 9:37 AM HST) Anatomical Region Laterality Modality Elbow Computed Radiogr aphy Impressions 11/20/2021 1:22 PM HST Left elbow x-ray series negative for acute pathology including fracture dislocation. ??No effusion. ??No notable degenerative changes. ?? Soft tissues unremarkable. INDICATION: Chronic left elbow pain. XRAYS: Left elbow x-ray series as above. INTERPRETATION: Left elbow x-ray series negative for acute pathology including fracture dislocation. ??No effusion. ??No notable degenerative changes. ??Soft tissues unremarkable. Narrative 11/20/2021 1:22 PM HST [facility] - Orthopedic Radiology Report Zbigniew Saavedra MD XRAY-ORDERABLE documented in this encounter Visit Diagnoses Diagnosis Chronic elbow pain, unspecified laterality Lateral epicondylitis, unspecified laterality Pain of both elbows Pain in joint, upper arm Pain of both elbows Pain in joint, upper arm documented in this encounter Administered Medications Inactive Administered Medications - up to 3 most recent administrations Medication Order MAR Action Action Date Dose Rate Site lidocaine hcl (local anesth.) (Xylocaine) 1 % Inj Locally, ONCE, 1 dose, On Thu11/20/21 at 1301, Routine Given by Physician 11/20/2021 1:33 PM HST 4 mL Left Arm lidocaine hcl (local anesth.) (Xylocaine) 1 % Inj Locally, ONCE, 1 dose, On Thu11/20/21 at 1301, Routine Given by Physician 11/20/2021 1:31 PM HST 4 mL Right Arm triamcinolone acetonide (KENALOG) Inj 40 mg Intramuscular, ONCE, 1 dose, On Thu11/20/21 at 1301, Routine Given by Physician 11/20/2021 1:35 PM HST 40 mg Left Arm triamcinolone acetonide (KENALOG) Inj 40 mg Intramuscular, ONCE, 1 dose, On Thu11/20/21 at 1301, Routine Given 11/20/2021 1:34 PM HST 40 mg Right Arm documented in this encounter Care Teams Green Building Engineer Relationship Specialty Start Date End Date Ben Olmedo III, MD [address] [place] [phone] PCP - General Family Medicine 10/28/21 documented as of this encounter
--- OUTSIDE RECORDS SUMMARY | 2024-03-31 04:09 | XMS_ITS | Encounter Summary ---
Author Organization [facility] Address [address] [place] [address] Care Team Providers [employer] Supervisor Name Role Phone Shara LEWIS MD, Ben Webb Primary Care Provider + Reason for Referral * Imaging (Routine) - Closed Specialty Diagnoses / Procedures Referred By Contac t Referred To Contact Radiology Diagnoses White matter disease Procedures XRAY - LUMBAR PUNCTURE (DIAGNOSTIC) Kimberlee Simms MD [address] [address] [facility] [phone] [facility] [place] [address] Referral ID Status Reason Start Date Expiration Date Visits Re quested Visits Authorized [id number] Closed 12/11/2021 1 1 * Imaging (Routine) - Closed Specialty Diagnoses / Procedures Referred By Contac t Referred To Contact Diagnoses White matter disease Procedures MRI - THORACIC SPINE WITHOUT AND WITH IV CONTRAST Kimberlee Simms MD [address] [facility] [address] [place] [address] Referral ID Status Reason Start Date Expiration Date Visits Re quested Visits Authorized [id number] Closed 12/11/2021 1 1 * Imaging (Routine) - Closed Specialty Diagnoses / Procedures Referred By Tram t Referred To Contact Diagnoses White matter disease Procedures MRI - CERVICAL SPINE WITHOUT AND WITH IV CONTRAST Kimberlee Simms MD [address] [address] Referral ID Status Reason Start Date Expiration Date Visits Re quested Visits Authorized [id number] Closed 12/11/2021 1 1 Reason for Visit * Reason Comments Followup New Patient PCP DR. BROWN * Referral (Routine) - Closed Specialty Diagnoses / Procedures Referred By Tram griffin Referred To Contact Neuroscience Diagnoses Multiple sclerosis (CMS/HCC) Ben Brown III, MD [address] [place] [phone] - [address] [place] [id number] Referral ID Status Reason Start Date Expiration Date Visits Re quested Visits Authorized [id number] Closed 11/06/2021 1 1 Encounter Details Date Type Department Care Team (Late st Contact Info) Description 12/11/2021 8:00 AM HST Telehealth [facility] [address] [facility] [address] - [address] [place], [place] [phone] Kimberlee Simms MD [address] [phone] White matter disease (Primary Dx); Multiple sclerosis (CMS/HCC) Discharge Disposition: D/C Home, Self Care Social [...] suspected to have Coronavirus/COVID-19? No / Unsure 12/10/2021 5:20 PM HST documented as of this encounter Last Filed Vital Signs Vital Sign Reading Time Taken Comments Blood Pressure - - Pulse - - Temperature - - Respiratory Rate - - Oxygen Saturation - - Inhaled Oxygen Concentration - - Weight 68 kg (150 lb) 12/11/2021 7:40 AM HST Height 182.9 cm (6') 12/11/2021 7:40 AM HST Body Mass Index 20.34 12/11/2021 7:40 AM HST documented in this encounter Patient Instructions * Patient Instructions* Iveth Ricketts, TRENT - 12/11/2021 9:15 AM HST 1) Blood work. Please complete at any [facility]. 2) MRI cervical and thoracic spine. Our clinic will retrieve a prior authorization for this procedure, fax the approval to [facility], then [facility] will call you to schedule this appointment. 3) Lumbar puncture. Our clinic will retrieve a prior authorization for this procedure, fax the approval to [facility], then [facility] will call you to schedule this appointment. 4) Our clinic will fax my note to Dr. Krissy Alcantara 5) Return to clinic after MRI is completed. Once you have a date for your MRI, please call our office to schedule a follow up appointment at [phone]. [facility] Information: Results: If you have [...] received and that it is ready for picker / packer. Medication Side Effects/Reactions: Stop taking your medication if you are concerned that you may be having an allergic reaction or if you are having significant side effects. Please call the office [facility] or send me a [employer] message tolet me know that you are having problems with the medication. Contact: The best way to contact me is via the [employer] system. You can also contact me by calling our office at [phone]. Thank you for giving us the privilege of caring for you today! documented in this encounter Progress Notes * Kimberlee Simms MD - 12/11/2021 8:00 AM HST [facility] Neuroscience [place] Telehealth Home Visit I performed a telemedicine visit using real-time, synchronous, two-way audiovisual teleconferencingtechnology. I personally interviewed and examined the patient and determined the plan of care. Originating Site: home visit Receiving Site: [facility] Patient: Jens Ayala : 1945 Date of service: 12/10/2021 Reason for referral: multiple sclerosis ID: Jens Ayala is a 76 year old male with a history of prostate enlargement c/b urinary retention, sleep disorder presenting for evaluation of demyelinating disease. HPI: History obtained from patient and chart review. A few months ago, patient developed numbness [...] for urinary retention. He has presented to [place] emergency department multiple times in the last few weeks due to ongoing symptoms. He is followed by urology with plans for prostate surgery once he has completed neurologic workup. There is concern for prostate cancer given elevated PSA. Neuro Symptoms: Motor: denies weakness Sensory: +R [...] and does not use drugs. -Lives in [place] with , retired, originally from [place], moved to [place] in Allergies: No Known Allergies Medications: Prior to [...] rest and with excursion with intact smile, eye closure, cheek puff, brow raise, V1-V3 intact bilaterally to light touch, hearing grossly intact, SCM and trapezius raise equal bilaterally, tongue protrusion midline Motor: moving all four extremities equally, antigravity throughout. Fine finger movements intact. Sensory: intact to patient's light touch in all four extremities equally Coordination: finger to nose intact bilaterally Gait/station: Normal casual walk. Imaging and Neurodiagnostics: MRI brain wo contrast 10/28/2021: There are multiple T2 hyperintensities throughout the supratentorial white matter. Many of the periventricular lesions demonstrate a perivenular distribution. There are no callosal lesions or infratentorial lesions. Assessment and Plan: Jens Ayala is a 76 year old male with a history of prostate enlargement c/b urinary retention, sleep disorder presenting for evaluation of demyelinating disease. Exam is benign via video visit. MRI brain with supratentorial white matter disease, some lesions appear demyelinating including lesions periventricularly; no infratentorial lesions or T1 hypointensities. Clinical history of right shoulder hypoesthesia could be consistent with demyelinating event; risk factors for demyelinating disease including family history of MS in first degree relative. Will proceed with further diagnostic workup to clarify possibility of demyelinating disease. Discussed with patient that if pending workup is consistent with multiple sclerosis, we will have further discussion on utility of disease modifying therapy given older age and benign course. Of note, patient with recent history of urinary issues requiring paulson catheter; imaging has demonstrated enlarged prostate and elevated PSA concerning for possible prostate cancer. Per patient report, urologist recommended completion of neurologic workup for MS prior to proceeding with prostate surgery given that demyelinating disease can can neurogenic bladder symptoms. From my standpoint, there is no indication to delay patient's urologic care including necessary surgery. Patient can proceedwith urologic care and surgical intervention from a neurologic standpoint without delay. - Serum labs for MS mimics - MRI C/T spine w/wo contrast - Referral for lumbar puncture - will determine if patient is able to complete on [place] -CSF cell count with differential, glucose, protein, IgG index, oligoclonal bands -Serum glucose and IgG index at same time - Return to clinic after MRI is completed The patient was referred to me for multiple sclerosis. I have subspecialty training in multiple sclerosis and neuroimmunology. The total amount of minutes spent on care of this patient on the day of the visit is 79 including: review of patient's chart, discussion with patient and/or family members and/or other healthcare team members, review of data, coordination of care and time spent completing charting/documentation. Kimberlee Simms MD [facility] Multiple Sclerosis and Neuroimmunology documented in this encounter Miscellaneous Notes * Addendum Note - Kimberlee Simms MD - 12/11/2021 8:00 AM HSTAddended by: KIMBERLEE SIMMS on: 12/11/2021 09:50 AM Modules accepted: Orders documented in this encounter Plan of Treatment Scheduled Orders Name Type Priority Associated Diagnoses Orde r Schedule CSF CELL COUNT Non-Blood Routine White matter disease Expected: 12/11/2021, Expires: 12/11/2022 GLUCOSE, CSF Non-Blood Routine White matter disease Expected: 12/11/2021, Expires: 12/11/2022 TOTAL PROTEIN, CSF Non-Blood Routine White matter disease Expected: 12/11/2021, Expires: 12/11/2022 IGG, CSF Non-Blood Routine White matter disease Expected: 12/11/2021, Expires: 12/11/2022 IgG Synthesis Rate Lab Routine White matter disease Expected: 12/11/2021, Expires: 12/11/2022 Oligoclonal Bands, CSF Non-Blood Routine White matter disease Expected: 12/11/2021, Expires: 12/11/2022 CSF CELL COUNT Non-Blood Routine White matter disease Expected: 12/11/2021, Expires: 12/11/2022 documented as of this encounter Procedures Procedure Name Priority Date/Time Associated Diagnosis Comments XRAY - LUMBAR PUNCTURE (DIAGNOSTIC) Routine 01/09/2022 10:32 AM HST White matter disease RPR, REFLEX TO TITER Routine 12/13/2021 9:45 AM HST White matter disease HIV-1/2 AG/AB WITH REFLEX Routine 12/13/2021 9:45 AM HST White matter disease METHYLMALONIC ACID, SERUM Routine 12/13/2021 9:45 AM HST White matter disease ANTI SSA/RO, SERUM Routine 12/13/2021 9: 45 AM HST White matter disease PART. THROM. TIME (PTT) Routine 12/13/2021 9:45 AM HST White matter disease PROTHROMBIN TIME (PT) Routine 12/13/2021 9:45 AM HST White matter disease ANTI-NUCLEAR AB, IFA, SERUM Routine 12/13/2021 9:45 AM HST White matter disease TSH REFLEX TO FREE T4 Routine 12/13/2021 9:45 AM HST White matter disease VITAMIN B12/FOLATE LEVEL Routine 12/13/2021 9:45 AM HST White matter disease documented in this encounter Results * XRAY - LUMBAR PUNCTURE (DIAGNOSTIC) (01/09/2022 10:32 AM HST) Anatomical Region Laterality Modality Lspine Computed Radiogr aphy 01/09/2022 10:5 0 AM HST Impressions 01/09/2022 10:52 AM HST IMPRESSION: FLUOROSCOPY GUIDANCE LUMBAR PUNCTURE WAS PERFORMED. NO IMMEDIATE COMPLICATIONS DETECTED. NORMAL OPENING PRESSURE. CLEAR CSF COLLECTED. ELECTRONICALLY SIGNED BY: ??MARTIN SMITH WORKSTATION ID: [id number] Narrative 01/09/2022 10:52 AM HST Result Status: Finalized Authenticating Radiologist: Martin Smith Requestor: KIMBERLEE SIMMS Reason for Exam: 76 YO MAN W/ WHITE MATTER DISEASE, POSSIBLE MS, REFER FOR LP; PAIN-BACK EXAM: XRAY - LUMBAR PUNCTURE (DIAGNOSTIC) ?? TECHNIQUE: Informed consent was obtained for lumbar puncture. Lumbar puncture was performed under fluoroscopic guidance and local anesthesia with strict aseptic precautions. Total Fluoroscopy time ??T ??number of images:Single images stored for documentation purposes. Fluoroscopy time 16 seconds. Reference Air Kerma: 2.9mGy 1% lidocaine was used for local anesthesia. 3.5 inch 20-gauge spinal needle was used. Lumbar puncture was performed at L5-S1 via right oblique sublaminar approach. Retrograde free flow of clear CSF was obtained. 12 cc of CSF was collected and sent to lab for investigations.. Normal opening pressure of 12 cm all fluid. Patient tolerated the procedure well. No immediate complications were detected. Procedure Note Martin Smith MD - 01/09/2022 Result Status: Finalized Authenticating Radiologist: Martin Smith Requestor: KIMBERLEE SIMMS Reason for Exam: 76 YO MAN W/ WHITE MATTER DISEASE, POSSIBLE MS, REFER FORLP; PAIN-BACK EXAM: XRAY - LUMBAR PUNCTURE (DIAGNOSTIC) TECHNIQUE: Informed consent was obtained for lumbar puncture. Lumbar puncture was performed under fluoroscopic guidance and localanesthesia with strict aseptic precautions. Total Fluoroscopy time T number of images:Single images stored fordocumentation purposes. Fluoroscopy time 16 seconds. Reference Air Kerma: 2.9mGy 1% lidocaine was used for local anesthesia. 3.5 inch 20-gauge spinal needle was used. Lumbar puncture was performed at L5-S1 via right oblique sublaminarapproach. Retrograde free flow of clear CSF was obtained. 12 cc of CSF was collectedand sent to lab for investigations.. Normal opening pressure of 12 cm all fluid. Patient tolerated the procedure well. No immediate complications weredetected. IMPRESSION: IMPRESSION: FLUOROSCOPY GUIDANCE LUMBAR PUNCTURE WAS PERFORMED. NO IMMEDIATECOMPLICATIONS DETECTED. NORMAL OPENING PRESSURE. CLEAR CSF COLLECTED. ELECTRONICALLY SIGNED BY: MARTIN SMITH WORKSTATION ID: [id number] Kimberlee Simms MD XRAY-ORDERABLE * MRI - CERVICAL SPINE WITHOUT AND WITH IV CONTRAST (12/19/2021 5:22 PM HST) Anatomical Region Laterality Modality [facility] 12/19/2021 4:27 PM HST Impressions 12/20/2021 10:38 AM HST IMPRESSION: 1. ??DEGENERATIVE CHANGES CONTRIBUTE TO MILD SPINAL CANAL NARROWING AT C3-4, C4- 5, WITHOUT MASS EFFECT ON THE SPINAL CORD. 2. ??NEURAL FORAMINAL NARROWING IS MODERATE AT C3-4 BILATERALLY, C6-7 ON THE LEFT AND IS MILD AT C4-5 BILATERALLY, C5-6 ON THE LEFT, C6-7 ON THE RIGHT. 3. ??NO INTRAMEDULLARY CORD SIGNAL ABNORMALITY OR ENHANCEMENT TO INDICATE PRIOR/ACTIVE DEMYELINATION. THANK YOU FOR THE REFERRAL. ELECTRONICALLY SIGNED BY: ??GIOVANY LLANES WORKSTATION ID: [id number] Narrative 12/20/2021 10:38 AM HST Result Status: Finalized Authenticating Radiologist: Giovany Llanes Requestor: KIMBERLEE SIMMS Reason for Exam: NO INDICATOR FOUND; 76 YO MAN WITH WHITE MATTER DISEASE SUPRATENTORIALLY, POSSIBLE MS, EVAL FOR CORD LESIONS EXAM: MRI - CERVICAL SPINE WITHOUT AND WITH IV CONTRAST CLINICAL INDICATION: NO INDICATOR FOUND; 76 YO MAN WITH WHITE MATTER DISEASE SUPRATENTORIALLY, POSSIBLE MS, EVAL FOR CORD LESIONS COMPARISON: None TECHNIQUE: Routine MR imaging of the cervical spine was performed on a 1.5 ??Donya scanner prior to and following intravenous administration of 7 ??ml Gadavist. FINDINGS: Exaggeration of cervical lordosis without listhesis. ??Vertebral body height is preserved. No suspicious marrow signal or evidence of fracture. Prevertebral soft tissues and paraspinal muscles are normal. No gross abnormality of the imaged skull base or posterior fossa. ??No epidural fluid collection or mass. Spinal cord is normal in signal intensity and contour. Cervical arterial flow-voids are visualized. Disc, facet and uncovertebral degenerative changes are as described: C1-2: No spinal canal narrowing. C2-3: Disc osteophyte complex. No spinal canal or neural foraminal narrowing. C3-4: Disc osteophyte complex and joint arthrosis mildly narrow the spinal canal. Moderate bilateral neural foraminal narrowing. C4-5: Disc osteophyte complex and joint arthrosis mildly narrow the spinal canal. Mild bilateral neural foraminal narrowing. C5-6: Disc osteophyte complex and joint arthrosis do not narrow the spinal canal. Mild left neural foraminal narrowing. C6-7: Disc osteophyte complex and joint arthrosis do not narrow the spinal canal. Moderate left and mild right neural foraminal narrowing. C7-T1: No spinal canal or neural foraminal narrowing. Procedure Note Giovany Llanes MD - 12/20/2021 Result Status: Finalized Authenticating Radiologist: Giovany Llanes Requestor: KIMBERLEE SIMMS Reason for Exam: NO INDICATOR FOUND; 76 YO MAN WITH WHITE MATTER DISEASESUPRATENTORIALLY, POSSIBLE MS, EVAL FOR CORD LESIONS EXAM: MRI - CERVICAL SPINE WITHOUT AND WITH IV CONTRAST CLINICAL INDICATION: NO INDICATOR FOUND; 76 YO MAN WITH WHITE MATTERDISEASE SUPRATENTORIALLY, POSSIBLE MS, EVAL FOR CORD LESIONS COMPARISON: None TECHNIQUE: Routine MR imaging of the cervical spine was performed on a 1.5Tesla scanner prior to and following intravenous administration of 7 ml Gadavist. FINDINGS: Exaggeration of cervical lordosis without listhesis. Vertebralbody height is preserved. No suspicious marrow signal or evidence of fracture.Prevertebral soft tissues and paraspinal muscles are normal. No gross abnormality of the imaged skullbase or posterior fossa. No epidural fluid collection or mass. Spinal cord is normal insignal intensity and contour. Cervical arterial flow-voids are visualized. Disc, facet anduncovertebral degenerative changes are as described: C1-2: No spinal canal narrowing. C2-3: Disc osteophyte complex. No spinal canal or neural foraminalnarrowing. C3-4: Disc osteophyte complex and joint arthrosis mildly narrow the spinalcanal. Moderate bilateral neural foraminal narrowing. C4-5: Disc osteophyte complex and joint arthrosis mildly narrow the spinalcanal. Mild bilateral neural foraminal narrowing. C5-6: Disc osteophyte complex and joint arthrosis do not narrow the spinalcanal. Mild left neural foraminal narrowing. C6-7: Disc osteophyte complex and joint arthrosis do not narrow the spinalcanal. Moderate left and mild right neural foraminal narrowing. C7-T1: No spinal canal or neural foraminal narrowing. IMPRESSION: IMPRESSION: 1. DEGENERATIVE CHANGES CONTRIBUTE TO MILD SPINAL CANAL NARROWING ATC3-4, C4-5, WITHOUT MASS EFFECT ON THE SPINAL CORD. 2. NEURAL FORAMINAL NARROWING IS MODERATE AT C3-4 BILATERALLY, C6-7 ONTHE LEFT AND IS MILD AT C4-5 BILATERALLY, C5-6 ON THE LEFT, C6-7 ON THE RIGHT. 3. NO INTRAMEDULLARY CORD SIGNAL ABNORMALITY OR ENHANCEMENT TO INDICATEPRIOR/ACTIVE DEMYELINATION. THANK YOU FOR THE REFERRAL. ELECTRONICALLY SIGNED BY: GIOVANY LLANES WORKSTATION ID: [id number] Kimberlee Simms MD MRI-ORDERABLE * MRI - THORACIC SPINE WITHOUT AND [...] FOR THE REFERRAL. ELECTRONICALLY SIGNED BY: ??GIOVANY LLANES WORKSTATION ID: [id number] Narrative 12/20/2021 10:39 AM HST Result Status: Finalized Authenticating Radiologist: Giovany Llanes Requestor: KIMBERLEE SIMMS Reason for Exam: NO INDICATOR FOUND; 76 [...] be characterized in detail. Procedure Note Giovany Llanes MD - 12/20/2021 Result Status: Finalized Authenticating Radiologist: Giovany Llanes Requestor: KIMBERLEE SIMMS Reason for Exam: NO INDICATOR FOUND; 76 [...] FOR THE REFERRAL. ELECTRONICALLY SIGNED BY: GIOVANY LLANES WORKSTATION ID: [id number] Kimberlee Simms MD MRI-ORDERABLE * Part. Throm. Time (PTT) (12/13/2021 9:45 AM HST) PTT 33.4 23.5 - 37.8 secs [facility] [place] 12/13/2021 9:45 AM HST 12/13/2021 12:41 PM HST Kimberlee Simms MD COAGULATION-ORDERA BLE Performing Organization Address [facility] de Phone Number LAB [facility] AMB [phone] [place] [address], [facility] [address] [place] [address] * (ABNORMAL) Prothrombin Time (PT) (12/13/2021 9:45 AM HST) Protime 11.7(L) 11.8 - 14.2 secs [facility] INR <1.0(L) [facility] Comment: Moderate-intensity Warfarin therapy ? 2.0-3.0 Higher-intensity Warfarin therapy ? 2.5-3.5 12/13/2021 9:45 AM HST 12/13/2021 12:41 PM HST Kimberlee Simms MD COAGULATION-ORDERA BLE Performing Organization Address [facility] de Phone Number LAB [facility] [phone] [place], [place] [id number] [place], [place] [address] [place] [address] * Methylmalonic Acid, Serum (12/13/2021 9:45 AM HST) Methylmalonic Acid, Serum 190 nmol/L [facility] Comment: EXPECTED VALUES: [phone] ?? This test was developed and its analytical performance characteristics have been determined by [employer] [facility]. It has not been cleared or approved by FDA. This assay has been validated pursuant to the CLIA regulations and is used for clinical purposes. Test Performed at: [facility] [address], [place] ??[phone] ? I Carmen LU, PhD, CELIA 12/13/2021 9:45 AM HST 12/13/2021 5:49 PM HST Kimberlee Simms MD REFERENCE [facility] [phone] [place] [address], [facility] [address] [place] [address] * VITAMIN B12/FOLATE LEVEL (12/13/2021 9:45 AM HST) Vitamin B12 364 232 - 1245 pg/mL [facility] Folate, Serum 8.3 >3.1 ng/mL [facility] 12/13/2021 9:45 AM HST 12/13/2021 5:49 PM HST Kimberlee Simms MD SPECIAL CHEMISTRY- ORDERABLE Performing Organization Address City/[facility]/ZIP Co de Phone Number LAB [facility] [phone] [place] [address], [facility] CENTRAL [facility] [address] [place] [address] * TSH REFLEX TO FREE T4 (12/13/2021 9:45 AM HST) Pathologist [facility] TSH 1.96 0.27 - 4.20 uIU/mL [facility] 12/13/2021 9:45 AM HST 12/13/2021 12:41 PM HST Kimberlee Simms MD SPECIAL CHEMISTRY- ORDERABLE Performing Organization Address City/[facility]/ZIP Co de Phone Number LAB [facility] [address] [address] [place] [address], [facility] [phone] [place] [address] * HIV-1/2 Ag/Ab with Reflex (12/13/2021 9:45 AM HST) HIV-1/2 Ag/Ab NEGATIVE NEGATIVE [facility] Blood 12/13/2021 9:45 AM HST 12/13/2021 5:49 PM HST Kimberlee Simms MD SPECIAL CHEMISTRY- ORDERABLE Performing Organization Address [facility] Co de Phone Number LAB [facility] [phone] [place] [address], [facility] [phone] [place] [address] * RPR, Reflex to Titer (12/13/2021 9:45 AM HST) RPR NON-REACTIV E NON-REACTI VE [facility] Blood 12/13/2021 9:45 AM HST 12/13/2021 5:49 PM HST Kimberlee Simms MD SPECIAL CHEMISTRY- ORDERABLE Performing Organization Address [facility] de Phone Number LAB D[facility] [phone] [place] [address], [facility] [phone] [place] [address] * ANTI SSA/RO, SERUM (12/13/2021 9:45 AM HST) Anti SSA/Ro, Serum <0.2 <=0.9 NEGATIVE [facility] Comment: Interpretation: Antibody Index (AI) ??Explanation of Test Results ? <=0.9 ? Negative - No Antibody Detected >=1.0 ? Positive - Antibody Detected 12/13/2021 9:45 AM HST 12/13/2021 5:49 PM HST Kimberlee Simms MD SPECIAL CHEMISTRY- ORDERABLE Performing Organization Address [facility] de Phone Number LAB [facility] [phone] [place] [address], [facility] [phone] [place] [address] * Anti-Nuclear Ab, IFA, Serum (12/13/2021 9:45 AM HST) Anti-Nuclear Ab Titer <40 = or < 40 [facility] 12/13/2021 9:45 AM HST 12/13/2021 5:49 PM HST Kimberlee Simms MD SPECIAL CHEMISTRY- ORDERABLE LAB D[facility] [phone] [place] [address], [facility] [address] [place] [address] documented in this encounter Visit Diagnoses Diagnosis White matter disease- Primary Other conditions of brain Multiple sclerosis (CMS/HCC) Multiple sclerosis White matter disease Other conditions of brain White matter disease Other conditions of brain documented in this encounter Care Teams [employer] Supervisor Relationship Specialty Start Date End Date Ben Brown III, MD [facility] [phone] PCP - General Family Medicine 10/28/21 documented as of this encounter
--- OUTSIDE RECORDS SUMMARY | 2024-03-31 04:09 | XMS_ITS | Encounter Summary ---
Author Organization [facility] Address [address] [place] [address] Care Team Providers Care Parachute Line Tier Name Role Phone Shara LEWIS MD, Ben Webb Primary Care Provider + Encounter Details Date Type Department Care Team (Late st Contact Info) Description 11/20/2021 9:30 AM HST Ancillary Procedure [facility] [phone] [facility], [address] [place] [address] Zbigniew Saavedra MD [id number] [facility] [address] [place] [address] Pain of both elbows Discharge Disposition: D/C Home, Self Care Social [...] Priority Date/Time Associated Diagnosis Comments XRAY - ELBOW 3V (AP, LATERAL & OBLIQUE) Routine 11/20/2021 9:37 AM HST Pain of both elbows documented in this encounter Results * XRAY - ELBOW [...] tissue unremarkable. Narrative 11/20/2021 1:21 PM HST [facility] - Orthopedic Radiology Report Zbigniew Saavedra MD XRAY-ORDERABLE documented in this encounter Visit Diagnoses Diagnosis Pain of both elbows Pain in joint, upper arm documented in this encounter Care Teams Parachute Line Tier Relationship Specialty Start Date End Date Ben Olmedo III, MD [address] [place] [phone] PCP - General Family Medicine 10/28/21 documented as of this encounter
--- OUTSIDE RECORDS SUMMARY | 2024-03-31 04:09 | XMS_ITS | Encounter Summary ---
Author Organization [facility] Address [address] [place] [address] Care Team Providers Care Customer Specialist Name Role Phone Shara LEWIS MD, Ben Webb Primary Care Provider + Reason for Visit * Reason Comments Blood in Urine Pt having blood in h is paulson and bladder spasms. Pt has been seen multiple times within last week at ED for same c/o and has close follow up with pcp and urologist. Encounter Details Date Type Department Care Team (Late st Contact Info) Description 12/14/2021 10:42 AM HST - 12/14/2021 12:20 PM T Emergency [facility] Emergency Dept [phone] [place] [address] Marlen Pruitt MD [phone] [facility] [place] [phone] Discharge Disposition: D/C Home, Self Care Social [...] suspected to have Coronavirus/COVID-19? No / Unsure 12/14/2021 10:54 AM HST documented as of this encounter Last Filed Vital Signs Vital Sign Reading Time Taken Comments Blood Pressure 116/92 12/14/2021 11:00 AM HST Pulse 87 12/14/2021 11:00 AM HST Temperature 35.8 ??C (96.5 ??F) 12/14/2021 10:[address] Respiratory Rate 18 12/14/2021 11:00 AM HST Oxygen Saturation 98% 12/14/2021 11:00 AM HST Inhaled Oxygen Concentration - - Weight 68 kg (150 lb) 12/14/2021 10:55 AM HST Height 185.4 cm (6' 1) 12/14/2021 10:55 AM HST Body Mass Index 19.79 12/14/2021 10:55 AM HST documented in this encounter Discharge Instructions * Discharge Instructions* Marlen Pruitt MD - 12/14/2021 11:32 AM HST Today your hemoglobin and white blood cell count was normal. Please return to the emergency department if you develop significant pain, bleeding for more than 24 hours with chest pain, lightheadedness, dizziness. If you develop fever, chills or pain in the abdomen, please return to the emergency department. If your Paulson bag stops draining, please return to the emergency department. Otherwise please follow-up with Dr. Alcantara as scheduled. * Attachments The following attachments cannot be sent through Care Everywhere. * ACUTE HEMATURIA (DISCHARGE CARE) (SPANISH) documented in this encounter Medications at Time [...] as of this encounter ED Notes * Zita Jimenez RN - 12/14/2021 12:20 PM HST Jens Ayala was discharged from the Emergency Department ambulating, accompanied by relative. Patient/guardian verbalized understanding of all discharge instructions. Jens Ayala received: no take home meds . Patient: was NOT given narcotics or sedatives during this ED visit. Pain level 0=no pain, awake, alert, oriented x 3 and walks with steady gait. BP (!) 116/92 Pulse 87 Temp 35.8 ??C (96.5 ??F) (Temporal) Resp 18 Ht 185.4 cm (6' 1) Wt 68 kg (150 lb) SpO2 98% BMI 19.79 kg/m?? The patient received the following medications during their ED encounter: Administrations This Visit None * Zita Jimenez RN - 12/14/2021 11:[address] paulson irrigated with pink urine return. ERP made aware. * Marlen Pruitt MD - 12/14/2021 11:29 AM HST 76 year old male [facility] [phone] ED Date of Service: 12/14/2021 Arrival time:10:34 AM Arrival mode: Walked CC: Chief Complaint Patient presents with ??? Blood in Urine Pt having blood in his paulson and bladder spasms. Pt has been seen multiple times within last week at ED for same c/o and has close follow up with pcp and urologist. HPI: Patient is a 76-year-old male with a past medical history of BPH, hyperlipidemia and recent diagnosis of possible bladder cancer who has been fully cathetered who presents for hematuria and bladder spasms. Patient has been struggling with this ever since the Paulson was placed weeks ago. Has been seen in the emergency department multiple times for similar, but feels frustrated as it has not ended and is questioning whether or not we should remove his Paulson catheter today. He denies any fevers, chills, penile pain, testicular pain, abdominal pain, nausea, vomiting, bleeding from any other site. No chest pain, shortness of breath, dizziness, lightheadedness. Patient had a UTI, however based on urine cultures, was treated adequately, he denies any dysuria at this time. He has been placed on oxybutynin and has a follow-up with his urologist within the next 10 days. : History Medical History: Past Medical History: [...] prostate surgery ??? HX ORTHOPEDIC SURGERY Right 2008 [employer]ANT Meds: Prior to Admission Medications Prescriptions Last [...] and are negative. Initial vital signs: BP: 136/77, Pulse: 98, Resp: 18, Temp: 35.8 ??C (96.5 ??F), SpO2 (%): 100 %, Room Air/Liter Flow (LPM): Room air Most recent vital signs: BP: (!) 116/92, Pulse: 87, Resp: 18, Temp: 35.8 ??C (96.5 ??F), SpO2 (%): 98 %, Room Air/Liter Flow(LPM): Room air Physical Exam Physical exam: INITIAL [...] guarding or rebound. Normal bowel sounds. : Paulson in place draining reddish urine BACK: No midline or flank tenderness. SKIN: No petechiae or rashes. EXTREMITIES: No cyanosis or edema. NEUROLOGIC: Awake and alert. PSYCH: Normal mood and affect. Data Reviewed Consults: None Imaging: None Emergency Physician interpretation: No results found for this visit on 12/14/21. Lab: Results for orders placed or performed during the hospital encounter of 12/14/21 1. CBC W/ Diff and Platelet Count Result Value White Blood Count 7.39 Red Blood Cell Count 4.42 Hemoglobin 14.1 Hematocrit 41.3 MCV 93.4 MCH 31.9 MCHC 34.1 RDW 13.4 Platelet Count 248 Imm Granulocyte 0.3 Neutrophil 77.6 (H) Lymphocyte 12.7 Monocyte 7.2 Eosinophil 1.8 Basophil 0.4 Abs Imm Granulo 0.02 Abs Neutrophils 5.74 Abs Lymphocytes 0.94 (L) ED Course/Medical Decision Making: MDM 76-year-old male well-known to this emergency department representing for bladder spasm and hematuria. Denies any infectious symptoms, doubt reinfection. Hemoglobin does not show any significant derangement, no leukocytosis. No evidence of extravasation. Patient requesting Paulson irrigation, which would gladly obliged. I did discuss with patient that given his new diagnosis of possible bladder cancer, his hematuria and spasms will likely not cease until he has follow-up and possible instrumentation with urology. Patient understands that he will likely be dealing with the symptoms for the foreseeable future. He was given strict ED return precautions such as fever, chills, significant bleeding, pain, shortness of breath, chest pain, dizziness. He understands, and has agreed to follow-up withhis urologist as scheduled. Clinical Impression: Hematuria, unspecified type (primary encounter diagnosis) Disposition: ED Dispo & COD ED Disposition Discharge Condition -- Date/Time Sat Dec 14, 2021 11:32 AM Comment -- No discharge procedures on file. ED Prescriptions None Follow up provider: Ben Olmedo III, MD [phone] [facility] [phone] Schedule an appointment as soon as possible for a visit in 2 days Krissy Alcantara MD [phone] [facility] [phone] As scheduled MARLEN PRUITT Physician 12/14/2021 11:33 documented in this encounter Plan of Treatment Not on file documented as of this encounter Procedures Procedure Name Priority Date/Time Associated Diagnosis Comments CBC W/ DIFF AND PLATELET CT STAT 12/14/2021 10:58 AM HST documented in this encounter Results * (ABNORMAL) CBC W/ Diff and Platelet Count (12/14/2021 10:58 AM HST) White Blood Count 7.39 3.80 - 10.80 x10(3)/uL [facility] Red Blood Cell Count 4.42 4.00 - 6.20 x10(6)/uL [facility] Hemoglobin 14.1 13.7 - 17.5 g/dL [facility] Hematocrit 41.3 40.1 - 51.0 % [facility] MCV 93.4 79.4 - 98.4 fL [facility] MCH 31.9 26.0 - 34.0 pg [facility] MCHC 34.1 32.0 - 36.0 g/dL [facility] RDW 13.4 11.6 - 14.4 % [facility] Platelet Count 248 151 - 424 x10(3)/uL [facility] Imm Granulocyte 0.3 0.0 - 1.0 % [facility] Neutrophil 77.6(H) 34.0 - 72.0 % [facility] Lymphocyte 12.7 12.0 - 44.0 % [facility] Monocyte 7.2 0.0 - 12.0 % [facility] Eosinophil 1.8 0.0 - 7.0 % [facility] Basophil 0.4 0.0 - 2.0 % [facility] Abs Imm Granulo 0.02 0.0 - 0.10 x10(3)/uL [facility] Abs Neutrophils 5.74 1.56 - 6.20 x10(3)/uL [facility] Abs Lymphocytes 0.94(L) 1.18 - 3.74 x10(3)/uL [facility] 12/14/2021 10:5 8 AM HST 12/14/2021 11:04 AM HST Marlen Pruitt MD HEMATOLOGY-ORDERABLE [facility] [phone] [place] [address] [facility] [phone] [place] [address] documented in this encounter Visit Diagnoses Diagnosis Hematuria, unspecified type- Primary documented in this encounter Care Teams Customer Specialist Relationship Specialty Start Date End Date Ben Olmedo III, MD [address] [place] [phone] PCP - General Family Medicine 10/28/21 documented as of this encounter
--- OUTSIDE RECORDS SUMMARY | 2024-03-31 04:09 | XMS_ITS | Encounter Summary ---
Author Organization [facility] Address [address] [place] [address] Care Team Providers Care Tariff Counsel Name Role Phone Shara LEWIS MD, Ben W Primary Care Provider + Reason for Visit * Reason Comments Blood in Urine Blood in urine x2 da ys, pt seen yesterday in ER, paulson placed. Pt reports increased blood. Pt states pain at the tip of my penis. Encounter Details Date Type Department Care Team (Late st Contact Info) Description 11/02/2021 8:08 PM HST - 11/02/2021 9:29 PM HST Emergency [facility] Emergency Dept [phone] [facility] DEWE[place] [address] Win Galvez MD [phone] [facility] [place] [phone] Discharge Disposition: D/C Home, Self Care Social [...] the money to buy more. Never true 11/04/19 22 Within the past 12 months, t he food you bought just didn't last and you didn't have money to get more. Never true 11/03/2021 Sex and Gender Information Value Date Recorded [...] have Coronavirus / COVID-19? No / Unsure 11/02/2021 8:10 PM HST documented as of this encounter Last Filed Vital Signs Vital Sign Reading Time Taken Comments Blood Pressure 122/85 11/02/2021 9:00 PM HST Pulse 72 11/02/2021 9:00 PM HST Temperature 36.2 ??C (97.1 ??F) 11/02/2021 8:12 PM HS T Respiratory Rate 16 11/02/2021 8:12 PM HST Oxygen Saturation 96% 11/02/2021 9:00 PM HST Inhaled Oxygen Concentration - - Weight 72.6 kg (160 lb) 11/02/2021 8:12 PM HST Height 182.9 cm (6') 11/02/2021 8:12 PM HST Body Mass Index 21.7 11/02/2021 8:12 PM HST documented in this encounter Discharge Instructions * Discharge Instructions* Win Galvez MD - 11/02/2021 9:20 PM HST We did find a small abrasion to the tip of the penis, likely happened when the catheter was placed.This may cause pain when the catheter rubs against it. To help decrease irritation, we have securedthe catheter in place with a StatLock. You may also place 1 ml of the lidocaine jelly into the tip of the penis three times daily to keep the area lubricated and to relieve pain. * Attachments The following attachments cannot be sent through Care Everywhere. * Paulson Catheter Placement and Care (AfterCare(R) Instructions(ER/ED)) (Hebrew) documented in this encounter Medications at Time [...] as of this encounter ED Notes * Yuliya Salinas RN - 11/02/2021 9:27 PM HST Jens Ayala was discharged from the Emergency Department ambulating, accompanied by relative. Patient/guardian verbalized understanding of all discharge instructions. Jens Ayala received: no take home meds . Patient: was NOT given narcotics or sedatives during this ED visit. Pain level 2/10, awake, alert, oriented x 3 and walks with steady gait. BP 152/82 Pulse 78 Temp36.2 ??C (97.1 ??F) (Temporal) Resp 16 Ht 182.9 cm (6') Wt 72.6 kg (160 lb) SpO2 96% BMI 21.70 kg/m?? The patient received the following medications during their ED encounter: Administrations This Visit lidocaine HCL 2 % gel Inj 10 mL Admin Date 11/02/2021 Action Given Dose 10 mL Route INTRA OP PER MD Administered By Yuliya Salinas RN * Win Galvez MD - 11/02/2021 9:20 PM HST 76 year old male [facility] [id number] ED Date of Service: 11/02/2021 Arrival time:8:03 PM Arrival mode: Walked CC: Chief Complaint Patient presents with ??? Blood in Urine Blood in urine x2 days, pt seen yesterday in ER, paulson placed. Pt reports increased blood. Pt states pain at the tip of my penis. HPI: HPI : This 76-year-old male presents with complaints of pain to the tip of the penis that has been occurring intermittently throughout the day. He was seen in this emergency department yesterdaywith hematuria and urinary retention. He does have a history of needing to self cath, and so stateshe did place the catheter himself yesterday. He states the urine is draining. Denies any abdominal pain, back pain, fever, chills, lightheadedness. No leakage around the catheter noted. History Medical History: Past Medical History: Diagnosis [...] HX ORTHOPEDIC SURGERY Right 2009 [employer] CLIENT ADVISOR Meds: Prior to Admission Medications Prescriptions Last [...] Activity Drug use: No Review of Systems All other systems reviewed and are negative. Initial vital signs: BP: 152/82, Pulse: 78, Resp: 16, Temp: 36.2 ??C (97.1 ??F), SpO2 (%): 96 % Most recent vital signs: BP: 152/82, Pulse: 78, Resp: 16, Temp: 36.2 ??C (97.1 ??F), SpO2 (%): 96 % Physical Exam Vitals and nursing note reviewed. Constitutional: Appearance: He is not diaphoretic. HENT: Head: Normocephalic and atraumatic. Eyes: General: No scleral icterus. Conjunctiva/sclera: Conjunctivae normal. Cardiovascular: Rate and Rhythm: Normal rate and regular rhythm. Pulmonary: Effort: Pulmonary effort is normal. No respiratory distress. Abdominal: General: There is no distension. Palpations: Abdomen is soft. There is no mass. Tenderness: There is no abdominal tenderness. Genitourinary: Comments: Paulson catheter in place attached to leg back with gross hematuria. Urine draining. Small abrasion/wound noted to right side of urethral meatus. No bleeding or leakage around the paulson. Musculoskeletal: General: No swelling or deformity. Normal range of motion. Cervical back: Normal range of motion and neck supple. Skin: General: Skin is warm and dry. Neurological: General: No focal deficit present. Mental Status: He is alert and oriented to person, place, and time. Psychiatric: Mood and Affect: Mood normal. Behavior: Behavior normal. Procedures: Procedures Data Reviewed Consults: None Imaging: None Emergency Physician interpretation: None No results found for this visit on 11/02/21. Lab: No results found for this visit on 11/02/21. ED Course/Medical Decision Making: MDM This 76-year-old male presents with pain to the tip of the penis. He does have an indwelling Paulson catheter for urinary retention. There is a small wound noted at the urethral meatus. Urojet placed with relief. Patient did remove the StatLock that had been placed previously. A new StatLock is placed. Patient advised that this will help to secure the catheter so it is not so mobile, preventingany further trauma. He is also advised that he may continue to place 1 mL of the lidocaine jelly into the urethral meatus up to 3 times a day as needed to keep the area lubricated and pain-free. He does plan to contact his urology office first thing Thursday morning. Advised that he may return at anytime for worsening. He is agreeable and discharged home. Clinical Impression: Urethral trauma, initial encounter (primary encounter diagnosis) Disposition: ED Dispo & COD ED Disposition Discharge Condition -- Date/Time Sat Nov 02, 2021 9:17 PM Comment -- No discharge procedures on file. ED Prescriptions None Follow up provider: [facility] [address] [place] [address] [place] [address] Schedule an appointment as soon as possible for a visit in 2 days Call the office Thursday morning to schedule ER follow-up appointment. WIN GALVEZ Physician 11/02/2021 21:20 * Brandy Brewer RN - 11/02/2021 8:14 PM HST Chief Complaint Patient presents with ??? Blood in Urine Blood in urine x2 days, pt seen yesterday in ER, paulson placed. Pt reports increased blood. Pt states pain at the tip of my penis. Patient a/o x3, ambulatory to ER 314 with steady gait. documented in this encounter Plan of Treatment Not on file documented as of this encounter Procedures Procedure Name Priority Date/Time Associated Diagnosis Comments LABORATORY COMMENTS Routine 11/02/2021 8 :40 PM HST documented in this encounter Results * LABORATORY COMMENTS (11/02/2021 8:40 PM HST) Comments RESULT [facility] Comment: PROBLEM Issue: Unnecessary collection TESTS Canceled: Notified RESULT [facility] Comment: Notified: NA ??Mcdowell: DISCHARGE/[id number] By: NA Time: NA Date: 11/03/2021 11/02/2021 8:40 PM HST 11/03/2021 4:39 AM HST Win Galvez MD BLOOD BANK TEST-ORDBrenda BLAKE [facility] Organization Address City/State/ZIP Co de Phone Number [facility] [phone] [facility] [place] [address] [facility] [phone] [facility] [place] [address] documented in this encounter Visit Diagnoses Diagnosis Urethral trauma, initial encounter- Primary documented in this encounter Administered Medications Inactive Administered Medications - up to 3 most recent administrations Medication Order MAR Action Action Date Dose Rate Site lidocaine HCL 2 % gel Inj 10 mL INTRA OP PER MD, ONCE, 1 dose, On 11/02/21 at 2026, STAT Given 11/02/2021 8:43 PM HST 10 mL documented in this encounter Active and Recently Administered Medications Times are shown in HST. Scheduled Medication Order 10/31/2021 11/01/2021 11/02/2021 lidocaine HCL 2 % gel Inj 10 mL (COMPLETED) INTRA OP PER MD, ONCE, 1 dose, On 11/02/21 at 2026, STAT 2042 (Given - Provid er: Yuliya Salinas RN) documented in this encounter Care Teams Tariff Counsel Relationship Specialty Start Date End Date Ben Olmedo III, MD [address] [place] [phone] PCP - General Family Medicine 10/28/21 documented as of this encounter
--- OUTSIDE RECORDS SUMMARY | 2024-03-31 04:09 | XMS_ITS | Encounter Summary ---
Author Organization [facility] Address [address] [place] [address] Care Team Providers Care Automation Technologist Name Role Phone Shara LEWIS MD, Ben Webb Primary Care Provider + Encounter Details Date Type Department Care Team (Late st Contact Info) Description 11/25/2021 - 11/25/2021 6:[address] [facility] Emergency Dept [phone] [place] [address] Discharge Disposition: ED-Reg in Error Social History Tobacco Use Types Packs/Day Years [...] Pain. 12/15/2021 documented as of this encounter Plan of Treatment Not on file documented as of this encounter Visit Diagnoses Not on filedocumented in this encounter Care Teams Automation Technologist Relationship Specialty Start Date End Date Ben Olmedo III, MD [address] [place] [phone] PCP - General Family Medicine 10/28/21 documented as of this encounter
--- OUTSIDE RECORDS SUMMARY | 2024-03-31 04:09 | XMS_ITS | Encounter Summary ---
Author Organization [facility] Address [address] [place] [address] Care Team Providers Care Electronics Engineer Name Role Phone Shara LEWIS MD, Ben Webb Primary Care Provider + Reason for Visit * Reason Comments Retention, Urine States that urinary catheter is blocked. Reports 1/2 of urine is going into bag and the other half is coming out around tubing. Seen her 10 times in the last month for the same. Dc'd this AM after tube replaced and irrigated. Encounter Details Date Type Department Care Team (Late st Contact Info) Description 12/10/2021 5:19 PM HST - 12/10/2021 7:40 PM HST Emergency [facility] Emergency Dept [phone] [facility] [place] [address] Claude Matthew MD [phone] [facility] [place] [phone] Discharge Disposition: D/C Home, Self Care Social [...] Sign Reading Time Taken Comments Blood Pressure 150/82 12/10/2021 7:32 PM HST Pulse 84 12/10/2021 7:32 PM HST Temperature 35.9 ??C (96.6 ??F) 12/10/2021 5:21 PM HS T Respiratory Rate 16 12/10/2021 5:21 PM HST Oxygen Saturation 99% 12/10/2021 7:32 PM HST Inhaled Oxygen Concentration - - Weight 72.6 kg (160 lb) 12/10/2021 5:21 PM HST Height 182.9 cm (6') 12/10/2021 5:21 PM HST Body Mass Index 21.7 12/10/2021 5:21 PM HST documented in this encounter Discharge Instructions * Attachments The following attachments cannot be sent through Care Everywhere. * Paulson Catheter Placement and Care (AfterCare(R) Instructions(ER/ED)) (Thai) documented in this encounter Medications at Time [...] as of this encounter ED Notes * Stephanie Dean RN - 12/10/2021 7:21 PM HST Jens Ayala was discharged from the Emergency Department ambulating, accompanied by relative. Patient/guardian verbalized understanding of all discharge instructions. Jens Ayala received: no take home meds . Patient: was NOT given narcotics or sedatives during this ED visit. Pain level 0=no pain, awake, alert, oriented x 3 and walks with steady gait. BP 143/79 Pulse 85 Temp 35.9 ??C (96.6 ??F) (Temporal) Resp 16 Ht 182.9 cm (6') Wt 72.6 kg (160 lb) SpO2 97% BMI 21.70 kg/m?? The patient received the following medications during their ED encounter: Administrations This Visit None * Claude Matthew MD - 12/10/2021 6:44 PM HST Jens Ayala, 76 year old male CSN: [id number] ED Date of Service: 12/10/2021 Arrival time:4:06 PM Arrival mode: Walked Chief Complaint Patient presents with ??? Retention, Urine States that urinary catheter is blocked. Reports 1/2 of urine is going into bag and the other half is coming out around tubing. Seen her 10 times in the last month for the same. Dc'd this AM after tube replaced and irrigated. Initial C-SSRS Score: Low (12/10/21 1722) HPI Pt is a 76 y M presenting with concern for urinary retention. Here earlier and paulson changed and irrigated. States urine leaking around paulson so came in. Now since laying down has been draining normally. Past Medical History: Diagnosis Date ??? Cancer [...] and are negative. Initial vital signs: BP: 143/79, Pulse: 85, Resp: 16, Temp: 35.9 ??C (96.6 ??F), SpO2 (%): 97 %, Room Air/Liter Flow (LPM): Room air Most recent vital signs: BP: 150/82, Pulse: 84, Resp: 16, Temp: 35.9 ??C (96.6 ??F), SpO2 (%): 99 %, Room Air/Liter [...] No results found for this visit on 12/10/21. Lab: No results found for this visit on 12/10/21. All Medications ordered during this Encounter: Medications - No data to display Medical Decision Making: Scoring Tools: MDM Number of Diagnoses or Management Options Bladder pain Diagnosis management comments: Paulson draining normally here, no hematuria or sediment. Pt describing episodes of feeling of bladder spasm and leaking urine but draining into bag in ED. Bladder scan normal. Discussed trial oxybutynin, urology fu, return precautions. Critical Care Time: No critical care was provided. Clinical Impression: Bladder pain (primary encounter diagnosis) Disposition: ED Dispo & COD ED Disposition Discharge Condition -- Date/Time ThuDec 10, 2021 7:17 PM Comment -- No discharge procedures on file. ED Prescriptions Medication Sig Dispense Start Date End Date Auth. Provider oxybutynin 5 mg Oral Tablet Take 1 Tablet by mouth 2 times a day for 7 days. 14 Tablet 12/10/2021 12/17/2021 Claude Matthew MD Follow up provider: Ben Olmedo III, MD [phone] [facility] [phone] Schedule an appointment as soon as possible for a visit [facility] Emergency Dept [phone] [facility] [phone] As needed, If symptoms worsen CLAUDE MATTHEW Physician 12/10/2021 20:26 documented in this encounter Plan of Treatment Not on file documented as of this encounter Visit Diagnoses Diagnosis Bladder pain- Primary Other symptoms involving urinary system documented in this encounter Care Teams Electronics Engineer Relationship Specialty Start Date End Date Ben Olmedo III, MD [address] [place] [phone] PCP - General Family Medicine 10/28/21 documented as of this encounter
--- OUTSIDE RECORDS SUMMARY | 2024-03-31 04:09 | XMS_ITS | Encounter Summary ---
Author Organization [facility] Address [address] [place] [address] Care Team Providers Care Test Puller Name Role Phone Shara LEWIS MD, Ben W Primary Care Provider + Encounter Details Date Type Department Care Team (Late st Contact Info) Description 11/20/2021 9:35 AM HST Ancillary Procedure [facility] Imaging Specialty [id number] [facility], [address] [place] [address] Zbigniew Saavedra MD [id number] [facility] [address] [place] [phone] Pain of both elbows Discharge [...] tissues unremarkable. Narrative 11/20/2021 1:22 PM HST [facility] - Orthopedic Radiology Report Zbigniew Saavedra MD XRAY-ORDERABLE documented in this encounter Visit Diagnoses Diagnosis Pain of both elbows Pain in joint, upper arm documented in this encounter Care Teams Test Puller Relationship Specialty Start Date End Date Ben Olmedo III, MD [address] [place] [phone] PCP - General Family Medicine 10/28/21 documented as of this encounter
--- OUTSIDE RECORDS SUMMARY | 2024-03-31 04:09 | XMS_ITS | Encounter Summary ---
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 Pt had recent cystoscopy at the end of November. Encounter Details Date Type Department Care Team (Late st Contact Info) Description 01/16/2022 10:18 PM HST - 01/16/2022 11:55 PM HST Emergency [facility] Emergency Dept [phone] [facility] [place] [address] Guanako Hernandez MD [phone] [facility] [place] [address] Blood in urine Discharge Disposition: D/C Home, Self Care Social [...] suspected to have Coronavirus/COVID-19? No / Unsure 01/16/2022 10:21 PM HST documented as of this encounter Last Filed Vital Signs Vital Sign Reading Time Taken Comments Blood Pressure 145/92 01/16/2022 10:22 PM HST Pulse 94 01/16/2022 10:22 PM HST Temperature 36 ??C (96.8 ??F) 01/16/2022 10:22 PM HST Respiratory Rate 18 01/16/2022 10:22 PM HST Oxygen Saturation 98% 01/16/2022 10:22 PM HST Inhaled Oxygen Concentration - - Weight 71.7 kg (158 lb) 01/16/2022 10:22 PM HST Height 182.9 cm (6') 01/16/2022 10:22 PM HST Body Mass Index 21.43 01/16/2022 10:22 PM HST documented in this encounter Discharge Instructions * Discharge Instructions* Guanako Hernandez MD - 01/16/2022 11:47 PM HST Please keep your appointment as scheduled with the urologist on Thursday. Return to the ER for new orworsening symptoms. * Attachments The following attachments cannot be sent through Care Everywhere. * Hematuria (Skin Care Consultant) (Kyrgyz) documented in this encounter Medications at Time [...] at bedtime. documented as of this encounter ED Notes * Vasu Street RN - 01/16/2022 11:54 PM HST Jens Ayala was discharged from the Emergency Department ambulating, accompanied by no one. Patient/guardian verbalized understanding of all discharge instructions. Jens Ayala received: no take home meds . Patient: was NOT given narcotics or sedatives during this ED visit. Pain level 0=no pain, awake, alert, oriented x 3 and walks with steady gait. BP (!) 145/92 Pulse 94 Temp 36 ??C (96.8 ??F) (Temporal) Resp 18 Ht 182.9 cm (6') Wt 71.7 kg (158 lb) SpO2 98% BMI 21.43 kg/m?? The patient received the following medications during their ED encounter: Administrations This Visit None * Guanako Hernandez MD - 01/16/2022 11:40 PM HST 76 year old male [facility] [id number] ED Date of Service: 01/16/2022 Arrival time:10:16 PM Arrival mode: Walked CC: Chief Complaint Patient presents with ??? 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 Pt had recent cystoscopy at the end of November. HPI: Blood in Urine Presenting symptoms: no dysuria Presenting symptoms comment: Blood in urine Context: during urination Context: not after injury Relieved by: Nothing Worsened by: Nothing Ineffective treatments: None tried Associated symptoms: hematuria Associated symptoms: no abdominal pain, no fever and no vomiting Risk factors: bladder surgery Risk factors comment: Bladder stones, TURP : Jens Ayala is a 76 year old male who presents today with complaints of recurrent hematuria. Patient has had issues with blood in his urine off and on over the last 2 months. He has had a recent TURP procedure, is urinating without difficulty. He also reports that he had a bladder stone that was pulverized and removed when he had his TURP last month. Patient describes a recent episode of constipation, subsequent evacuation of his bowels earlier today, onset of hematuria today. Denies any pain. Denies any fever. History Medical History: Past Medical History: Diagnosis [...] HX ORTHOPEDIC SURGERY Right 2009 [employer] Meds: Prior to Admission Medications Prescriptions Last Dose Informant Patient Reported? Taking? HYDROcodone/acetaminophen 5-325 mg Oral Tablet No No Take 1 Tablet by mouth every 6 hours as needed for Pain - Moderate. Do not drive or operate machinary dutasteride (AVODART) 0.5 mg Oral Capsule Yes No Take 0.5 mg by mouth daily. ALPRAZolam 0.5 mg Oral Tablet Yes No [...] are negative. Initial vital signs: BP: (!) 145/92, Pulse: 94, Resp: 18, Temp: 36 ??C (96.8 ??F), SpO2 (%): 98 %, Room Air/Liter Flow (LPM): Room air Most recent vital signs: BP: (!) 145/92, Pulse: 94, Resp: 18, Temp: 36 ??C (96.8 ??F), SpO2 (%): 98 %, Room Air/Liter Flow (LPM): Room air Physical Exam Vitals reviewed. Constitutional: General: He is not in acute distress. Appearance: He is normal weight. HENT: Head: Normocephalic. Eyes: Extraocular Movements: Extraocular movements intact. Pupils: Pupils are equal, round, and reactive to light. Cardiovascular: Rate and Rhythm: Normal rate and regular rhythm. Pulses: Normal pulses. Pulmonary: Effort: Pulmonary effort is normal. Abdominal: General: Abdomen is flat. Skin: General: Skin is warm. Capillary Refill: Capillary refill takes less than 2 seconds. Neurological: General: No focal deficit present. Mental Status: He is alert and oriented to person, place, and time. Procedures: Procedures Data Reviewed Consults: None Imaging: None No results found for this visit on 01/16/22. Lab: Results for orders placed or performed during the hospital encounter of 01/16/22 1. LABORATORY COMMENTS Result Value Comments RESULT Notified RESULT 2. Urinalysis Reflex To C&S Result Value Color RESULT Appearance HAZY Specific Lutz <1.005 (L) pH 6.0 Protein 2+ (H) Glucose NEG Ketones NEG Urobilinogen <2.0 Bilirubin NEG Blood LARGE (H) Leukocyte Esterase SMALL (H) Nitrite NEG WBC 21-50 (H) RBC 6-20 (H) Bacteria NONE SEEN Crystal, Amorphous PRESENT (H) Urine Culture/Sensitivity REFER TO THE MICROBIOLOGY SECTION OF REPORT 3. Urine Culture Specimen: Urine:Clean Catch Result Value Report Status PRELIMINARY Urine Culture Details RESULT ED Course/Medical Decision Making: MDM Number of Diagnoses or Management Options Diagnosis management comments: Patient is a 76-year-old male who presents with painless hematuria. Patient has had similar symptoms off and on for 2 months. Has had a recent TURP procedure, also recent indwelling Mathew catheters, and a bladder stone. Patient has no systemic signs of illness. On exam he is nontoxic. Abdomen is soft, nontender. He has stable vital signs. Hematuria noted in his urinalysis today. Some white blood cells also noted. Patient is currently on Cipro. We discussed continuing his course of Cipro, will be called with urine culture results should he need different antibiotics. We discussed the need for close PCP follow-up, return precautions for new or worsening symptoms. Clinical Impression: Gross hematuria (primary encounter diagnosis) Disposition: ED Dispo & COD ED Disposition Discharge Condition -- Date/Time Naomy January 16, 2022 11:47 PM Comment -- No discharge procedures on file. ED Prescriptions None Follow up provider: Ben Olmedo III, MD [phone] [facility] [phone] GUANAKO HERNANDEZ Physician 01/18/2022 05:58 documented in this encounter Plan of Treatment Not on file documented as of this encounter Procedures Procedure Name Priority Date/Time Associated Diagnosis Comments URINALYSIS, COMPLETE, REFLEX TO C & S STAT 01/16/2022 10:45 PM HST URINE CULTURE STAT 01/16/2022 10:45 PM HST LABORATORY COMMENTS STAT 01/16/2022 1 0:22 PM HST documented in this encounter Results * Urine Culture (01/16/2022 10:45 PM HST) Report Status FINAL [facility] Urine Culture Details RESULT DLS CENTRAL LAB Comment: GROWTH AT 2 DAYS 1 1,000 - 10,000 ORGANISMS/ML 1 GRAM-POSITIVE ORGANISM Urine (Urine, Clean Catch) 01/16/2022 10:45 PM HST 01/16/2022 11:01 PM HST Guanako Hernandez MD MICROBIOLOGY-ORDERAB LE LAB [facility] [phone] [place] [address] [facility] CENTRAL LAB [phone] [place] [address] * (ABNORMAL) Urinalysis Reflex To C&S (01/16/2022 10:45 PM HST) Color RESULT [facility] Comment:PINK Appearance HAZY [facility] Specific Lutz <1.005(L) 1.005 - 1.030 [facility] pH 6.0 5.0 - 7.5 [facility] Protein 2+(H) NEGATIVE [facility] Glucose NEG NEGATIVE [facility] Ketones NEG NEGATIVE [facility] Urobilinogen <2.0 <2.0 mg/dL mg/dL [facility] Bilirubin NEG NEGATIVE [facility] Blood LARGE(H) NEGATIVE [facility] Leukocyte Esterase SMALL(H) NEGATIVE [facility] Nitrite NEG NEGATIVE [facility] WBC 21-50(H) 0-5 WBC/hpf /hpf [facility] RBC 6-20(H) 0-2 RBC/hpf /hpf [facility] Bacteria NONE SEEN NONE /hpf [facility] Crystal, Amorphous PRESENT(H) NONE /hpf [facility] Urine Culture/Sensiti vity REFER TO THE MICROBIOLOGY SECTION OF REPORT [facility] Urine (Urine, Clean Catch) 01/16/2022 10:45 PM HST 01/16/2022 11:10 PM HST Guanako Hernandez MD URINALYSIS-ORDERABLE [facility] [phone] [facility] [place] [address] [facility] [phone] [facility] [place] [address] * LABORATORY COMMENTS (01/16/2022 10:22 PM HST) Comments RESULT [facility] Comment: PROBLEM Issue: Leaked TESTS Canceled: ??UA, Complete, w/ Reflex to C&S Notified RESULT [facility] Comment: Notified:BUD ??Mcdowell: [email or web address]/[id number] By: IVAN Time: 2245 Date: 01/16/2022 01/16/2022 10:2 2 PM HST 01/16/2022 10:35 PM HST Guanako Hernandez MD BLOOD BANK TEST-JESSI B[facility] [phone] [place] [address] [facility] [phone] [place] [address] documented in this encounter Visit Diagnoses Diagnosis Gross hematuria- Primary documented in this encounter Care Teams Storage Manager Relationship Specialty Start Date End Date Ben Olmedo III, MD [address] [place] [phone] PCP - General Family Medicine 10/28/21 documented as of this encounter
--- OUTSIDE RECORDS SUMMARY | 2024-03-31 04:09 | XMS_ITS | Encounter Summary ---
Author Organization [facility] Address [address] [place] [address] Care Team Providers Care Water Systems Designer Name Role Phone Shara LEWIS MD, Ben Webb Primary Care Provider + Reason for Visit * Reason Comments Tube replacement Pt had paulson placed 5 days ago for enlarged prostate. Pt stating that as of 30 minutes ago, it feels as if the paulson is blocked and he is urinating around the paulson. Denies blood and cloudiness in urine at this time Encounter Details Date Type Department Care Team (Late st Contact Info) Description 11/06/2021 5:25 PM HST - 11/06/2021 8:41 PM T Emergency [facility] Emergency Dept [phone] [place] [address] Shawna Swanson MD [phone] [facility] [place] [phone] Discharge Disposition: D/C Home, Self Care Social [...] Sign Reading Time Taken Comments Blood Pressure 151/87 11/06/2021 7:45 PM HST Pulse 82 11/06/2021 7:45 PM HST Temperature 36.7 ??C (98 ??F) 11/06/2021 5:31 PM HST Respiratory Rate 20 11/06/2021 7:45 PM HST Oxygen Saturation 97% 11/06/2021 7:45 PM HST Inhaled Oxygen Concentration - - Weight 72.4 kg (159 lb 11.2 oz) 11/06/2021 5:31 PM HST Height 182.9 cm (6') 11/06/2021 5:31 PM HST Body Mass Index 21.66 11/06/2021 5:31 PM HST documented in this encounter Discharge Instructions * Discharge Instructions* Shawna Swanson MD - 11/06/2021 8:07 PM HST You had obstruction of your Paulson catheter. This was replaced. Please follow-up with urology tomorrow. If you are developing worsening symptoms such as signs of recurrent obstruction, fever, vomiting, or there are other concerns, please return to the emergency department for further evaluation. For the constipation, you may increase water in the diet, continue high-fiber diet and continue Metamucil. Exercise can also help. Please also consider adding MiraLAX once a day. If after 2 days if you are not having a daily bowel movement, please increase it to 2 times a day. If after 2 days of twice a day use, you are not having a daily bowel movement, please increase it to 3 times a day. * Attachments The following attachments cannot be sent through Care Everywhere. * Paulson Catheter Placement and Care (AfterCare(R) Instructions(ER/ED)) (Turkish) documented in this encounter Medications at Time [...] as of this encounter Nursing Notes * Patricia Rodriguez RN - 11/06/2021 5:35 PM HST 11/06/21 1735 SDOH Screening Who is answering the SDOH [...] documented in this encounter ED Notes * Stephanie Dean RN - 11/06/2021 8:24 PM HST eJns Ayala was discharged from the Emergency Department ambulating, accompanied by no one. Patient/guardian verbalized understanding of all discharge instructions. Jens Ayala received: no take home meds . Patient: was NOT given narcotics or sedatives during this ED visit. Pain level 3/10, awake, alert, oriented x 3 and walks with steady gait. BP 151/87 Pulse 82 Temp36.7 ??C (98 ??F) (Oral) Resp 20 Ht 182.9 cm (6') Wt 72.4 kg (159 lb 11.2 oz) SpO2 97% BMI 21.66 kg/m?? The patient received the following medications during their ED encounter: Administrations This Visit lidocaine HCL 2 % gel Inj 10 mL Admin Date 11/06/2021 Action Given Dose 10 mL Route INTRA OP PER Administered By Vasu Street RN * Shawna Swanson MD - 11/06/2021 7:22 PM HST Jens Ayala, 76 year old male CSN: [id number] ED Date of Service: 11/06/2021 Arrival time:5:19 PM Arrival mode: Walked Chief Complaint Patient presents with ??? Tube replacement Pt had paulson placed 5 days ago for enlarged prostate. Pt stating that as of 30 minutes ago, it feels as if the paulson is blocked and he is urinating around the paulson. Denies blood and cloudiness in urine at this time HPI HPI This is a 76yrM with hx of BPH, HLD, RLS who presents with a clogged paulson. He has a history of BPH that required previous surgery ([facility] surgery on [facility]). He recently developed signs of urinary obstruction. Urinalysis reviewed from 11/01 did not show signs of UTI and he denies any axbh-gwa-npavhwo decongestant use or known medications that can cause urinary retention. He has been seen 11/01, 11/02, 11/03, and 11/04 for problems related to the urinary obstruction and problemswith the paulson, including clots, clogging and leaking as well as a visit on 11/01 with pain to the tip of the penis with evidence of a small traumatic injury. On 11/04, UA was repeated with possible UTI and he was started on bactrim, which he has had improvement on. Patient states that the Paulson catheter was working well with good urine output until about 5 PM today when he noticed there was no further urine output in the bag and he was leaking around the Paulson catheter. He has not had any bleeding or clots. He denies nausea or vomiting, flank pain or fever. He states he is followed with his primary care physician and does have an appointment with urology tomorrow morning at 8 AM. Past Medical History: Diagnosis Date ??? Kidney [...] morning. phenazopyridine (Pyridium) 200 mg Oral Tablet Not Taking No No Take 1 Tablet by mouth [...] by mouth at bedtime. Review of Systems Patient denies fever, vomiting, diarrhea, hematochezia, abdominal pain, chest pain, shortness of breath, congestion, rhinorrhea, rash, numbness, tingling, weakness. Other complete 12 system ROS was negative unless otherwise mentioned in the HPI. Initial vital signs: BP: (!) 151/93, Pulse: 89, Resp: 16, Temp: 36.7 ??C (98 ??F), SpO2 (%): 98 %, Room Air/Liter Flow (LPM): Room air Most recent vital signs: BP: 151/87, Pulse: 82, Resp: 20, Temp: 36.7 ??C (98 ??F), SpO2 (%): 97 %, Room Air/Liter Flow (LPM): Room air Physical Exam Gen: Patient pleasant, awake, alert, in no acute distress. HEENT: head is normocephalic, atraumatic, PERRLA, sclera non-icteric, CV: RRR, S1, S2 appreciated, No M/R/G Pulm: CTA bilaterally, no W/R/R Abd: soft, non-tender, non-distended, no guarding, no rebound, BS present : no evidence of bleeding on the penis or trauma Integumentary: No rash, Extremities: warm, well perfused, no lower extremity edema Neuro: Pt awake, alert, CNII-XII grossly intact, moves all extremities, gross sensation intact Procedures Procedures Data Reviewed Consults: None EKG: No orders of the defined types were placed in this encounter. EKG Interpretation: No EKG ordered. Imaging: None Emergency Physician interpretation: None No results found for this visit on 11/06/21. Lab: No results found for this visit on 11/06/21. All Medications ordered during this Encounter: Medications acetaminophen tab 650 mg (has no administration in time range) lidocaine HCL 2 % gel Inj 10 mL (10 mL INTRA OP PER MD Given 11/06/211933) Medical Decision Making: Scoring Tools: [facility] This is a 76yrM with hx of BPH, HLD, RLS who presents with a clogged paulson. With initial urinary retention, there is no evidence of UTI or suspect medications known to cause urinary retention. He has a known underlying history of BPH and has received surgery for this previously. He is here tonight with clogged Paulson and has been in the emergency department several days recently for difficulty related to the Paulson catheter. There is no evidence of bleeding at this time. He is on Bactrim and notes his symptoms have improved on this. We did attempt to flush the Paulson catheter and were not able to flush it. Urojet was applied for replacement. Patient requested additionalpain medication for this. I did inform him that we do not routinely give narcotic pain medications for Paulson replacements. The paulson catheter was replaced and functioning well. He has a follow-up appointment tomorrow morning at 8 AM with urology. He is advised to follow-up and given very clear follow-up instructions and return precautions. He is discharged in stable condition. Critical Care Time: No critical care was provided. Clinical Impression: Obstructed paulson catheter, initial encounter ([facility]) (primary encounter diagnosis) Disposition: ED Dispo & COD ED Disposition Discharge Condition -- Date/Time ThuNov 06, 2021 8:06 PM Comment -- No discharge procedures on file. ED Prescriptions None Follow up provider: Ben Olmedo III, MD [phone] [facility] [phone] SHAWNA SWANSON Physician 11/06/2021 20:18 * Patricia Rodriguez RN - 11/06/2021 5:42 PM HST Bladder scan volume showing 57mL documented in this encounter Plan of Treatment Not on file documented as of this encounter Visit Diagnoses Diagnosis Obstructed Paulson catheter, initial encounter ([facility])- Primary documented in this encounter Administered Medications Inactive Administered Medications - up to 3 most recent administrations Medication Order OCT Action Action Date Dose Rate Site lidocaine HCL 2 % gel Inj 10 mL INTRA OP PER MD, ONCE, 1 dose, On Thu11/06/21 at 1853, STAT Given 11/06/2021 7:34 PM HST 10 mL documented in this encounter Active and Recently Administered Medications Times are shown in HST. Scheduled Medication Order 11/04/2021 11/05/2021 11/06/2021 acetaminophen tab 650 mg Oral, ONCE, 1 dose, On Thu11/06/21 at 1853, STAT, Do Not Administer More Than 4 Grams of Acetaminophen Per Day. 2039 (Refused - Prov ider: Patricia Case RN) lidocaine HCL 2 % gel Inj 10 mL (COMPLETED) INTRA OP PER MD, ONCE, 1 dose, On Thu11/06/21 at 1853, STAT 1934 (Given - Provid er: Vasu Street RN) documented in this encounter Care Teams Water Systems Designer Relationship Specialty Start Date End Date Ben Olmedo III, MD [address] [place] [phone] PCP - General Family Medicine 10/28/21 documented as of this encounter
--- OUTSIDE RECORDS SUMMARY | 2024-03-31 04:09 | XMS_ITS | Encounter Summary ---
Author Organization [facility] Address [address] [place] [address] Care Team Providers Care Truck Chauffeur Name Role Phone Shara LEWIS MD, Ben Tracey Primary Care Provider + Reason for Visit * Auth/Cert Specialty Diagnoses / Procedures Referred By Tram griffin Referred To Contact Referral ID Status Reason Start Date Expiration Date Visits Re quested Visits Authorized [id number] 1 1 Encounter Details Date Type Department Care Team (Late st Contact Info) Description 01/09/2022 6:43 AM HST - 01/09/2022 10:55 AM T Hospital Encounter [facility] [phone] [place], [place] [phone] Martin Smith MD [address] [facility] IMAGING DEPT [place], [place] [phone] White matter disease Discharge Disposition: D/C Home, Self Care Social [...] Sign Reading Time Taken Comments Blood Pressure 138/78 01/09/2022 10:32 AM HST Pulse 77 01/09/2022 10:32 AM HST Temperature 36.8 ??C (98.3 ??F) 01/09/2022 10:[address] Respiratory Rate 19 01/09/2022 10:32 AM HST Oxygen Saturation 97% 01/09/2022 10:32 AM HST Inhaled Oxygen Concentration - - [...] Care Everywhere. * LUMBAR PUNCTURE (DISCHARGE CARE) (JAPANESE) documented in this encounter Medications at Time [...] copy of advanced directives and power of erisa attorney papers DOS to be scanned into [...] - Moderate. Do not drive or operate [employer] 6 Tablet 0 ??? dutasteride (AVODART) 0.5 [...] - Moderate. Do not drive or operate Outright 01/08/2022 at Unknown time 12/15/21 Yes Maddison [...] visible) Cardiovascular: WNL Respiratory: WNL Other: None [place] [employer]esthesi[employer] (ASA) Physical Status: 1 - Normal healthy patient Sedation Plan: Moderate Sedation: hypnotics and/or narcotics Patient interviewed and examined. Sedation plan including benefits, risks, and alternatives discussed with patient and/or patient's freight representative. All questions answered. He/she/they indicate understanding [...] patient from OR. Identity verified with OR rn ante partum Sriram NEWMAN, antibiotics and IV fluids confirmed. Patient status stable, adequate ventilations, adequate circulation, no distress noted. Bedside report received from OR rn ante partum and Anesthesia provider, all questions answered. Patient [...] Martin Smith MD SPECIAL CHEMISTRY-OR DERABLE LAB [facility] [phone] [place] [address] [facility] [phone] [place] [address] * (ABNORMAL) IgG Synthesis Rate (send-out test) [...] diagnosis of multiple sclerosis. Test Performed at: [facility] [address] ? I Carmen LU, PhD, CELIA 01/09/2022 10:3 5 AM HST 01/09/2022 10:48 AM HST Martin Smith MD REFERENCE LAB-[facility] Organization Address City/State/ZIP Co de Phone Number LAB [facility] [phone] [place] [address] [facility]-[address] [address] * Myelin Basic Protein, CSF (01/09/2022 9:40 AM HST) Myelin Basic Protein <2.0 mcg/L [facility] Comment: EXPECTED VALUES: 2.0-4.0 ?? MBP Result ? Interpretation ?? 2.0-4.0 mcg/L ?Negative ?? 4.1-6.0 mcg/L ?Weakly Positive ?>6.0 mcg/L ?Positive This test was developed and its analytical performance characteristics have been determined by [facility]. It has not been cleared or approved by FDA. This assay has been validated pursuant to the CLIA regulations and is used for clinical purposes. Test Performed at: [facility] [address] ? I Carmne LU, PhD, CELIA CSF (CSF, Tube 3) 01/09/2022 9:40 AM HST 01/09/2022 10:47 AM HST Martin Smith MD BODY FLUID-ORDERABLE Performing Organization Address City/[facility]/ZIP Co de Phone Number LAB [facility] [phone] [place] [address] [facility] [address] [place] [address] * (ABNORMAL) Oligoclonal Bands, CSF (01/09/2022 9:40 AM HST) Oligoclonal IgG Bands, IEF SEE BELOW(A) [facility] [...] bands due to local production in the ASSISTANT TEACHER, serum and CSF should be tested simultaneously. Oligoclonal bands can however be observed in a variety of other diseases, e.g., subacute sclerosing panencephalitis, inflammatory polyneuropathy, ASSISTANT TEACHER lupus, and brain tumors and infarctions. The clinical significance of a numerical band count, determined by isoelectric focusing, has not been definitively defined. The data should be interpreted in conjunction with all pertinent clinical and laboratory data for this patient. Test Performed at: [facility] [address] ??[phone] ? I Carmen LU, PhD, CELIA CSF (CSF, Tube 2) 01/09/2022 9:40 AM HST 01/09/2022 10:46 AM HST Martin Smith MD BODY FLUID-ORDERABLE LAB [facility] [phone] [place] [address] [facility] [address] [place] [address] * Cell Count, Spinal Fluid (01/09/2022 9:40 AM HST) Tube No. 4 [facility] Color COLORLESS DLS [facility] Appearance CLEAR DLS [facility] Supernatant COLORLESS/ROSE MARIE R DLS [facility] RBC 7 /cu mm DLS [facility] WBC 2 /cu mm [facility] Neutrophils 10 % [facility] Lymphocytes 80 % DLS [facility] Monocytes 10 % DLS [facility] CSF (CSF, Tube 4) 01/09/2022 9:40 AM HST 01/09/2022 10:47 AM HST Martin Smith MD BODY FLUID-ORDERABLE Performing Organization Address [facility]/ZIP Co de Phone Number LAB [facility] [phone] [place] [address] [facility] [phone] [place] [address] * IgG, CSF (01/09/2022 9:40 AM HST) Pathologist [facility] IgG, CSF 2.8 mg/dL [facility] Comment: EXPECTED VALUES: 0.8-7.7 Test Performed at: [facility] [address] ??[phone] ? I Carmen LU, PhD, CELIA CSF (CSF, Tube 3) 01/09/2022 9:40 AM HST 01/09/2022 10:46 AM HST Martin Smith MD BODY FLUID-ORDERABLE LAB [facility] [phone] [place] [address] [facility] [address] [place] [address] * Glucose, CSF (01/09/2022 9:40 AM HST) Glucose, CSF 59 mg/dL [facility] Comment: CSF glucose values are approximately 60% of the plasma values and should be compared to a plasma value for clinical interpretation. CSF (CSF, Tube 3) 01/09/2022 9:40 AM HST 01/09/2022 10:47 AM HST Martin Smith MD BODY FLUID-ORDERABLE Performing Organization Address [facility] Co de Phone Number [facility] [phone] [place] [address] [facility] [phone] [place] [address] * Cell Count, Spinal Fluid (01/09/2022) Tube No. 1 DLS [facility] Color COLORLESS DLS [facility] Appearance CLEAR DLS [facility] Supernatant COLORLESS/ROSE MARIE R DLS [facility] RBC 207 /cu mm DLS [facility] WBC 1 /cu mm [facility] Neutrophils 37 % [facility] Lymphocytes 43 % DLS [facility] Monocytes 17 % DLS [facility] Eosinophils 3 % DLS [facility] CSF (CSF, Tube 1) 01/09/2022 10:44 AM HST Martin Smith MD BODY FLUID-ORDERABLE Performing Organization Address [facility] Co de Phone Number [facility] [phone] [place] [address] [facility] [phone] [place] [address] documented in this encounter Visit Diagnoses Not on filedocumented in this encounter Administered Medications Inactive Administered [...] RN) documented in this encounter Care Teams Truck Chauffeur Relationship Specialty Start Date End Date Ben Olmedo III, MD [address] [place] [phone] PCP - General Family Medicine 10/28/21 documented as of this encounter
--- OUTSIDE RECORDS SUMMARY | 2024-03-31 04:09 | XMS_ITS | Encounter Summary ---
Author Organization [facility] Address [address] [place] [address] Care Team Providers Care Rail Loader Name Role Phone Shara LEWIS MD, Ben Webb Primary Care Provider + Reason for Referral * Imaging (Routine) - Closed Specialty Diagnoses / Procedures Referred By Contac t Referred To Contact Diagnoses White matter disease Procedures MRI - CERVICAL SPINE WITHOUT AND WITH IV CONTRAST Bernie England MD [address] [address] Referral ID Status Reason Start Date Expiration Date Visits Re quested Visits Authorized [id number] Closed 12/11/2021 1 1 Reason for Visit * Imaging (Routine) - Closed Specialty Diagnoses / Procedures Referred By Contac t Referred To Contact Diagnoses White matter disease Procedures MRI - CERVICAL SPINE WITHOUT AND WITH IV CONTRAST Bernie England MD [address] [address] Referral ID Status Reason Start Date Expiration Date Visits Re quested Visits Authorized [id number] Closed 12/11/2021 1 1 Encounter Details Date Type Department Care Team (Late st Contact Info) Description 12/19/2021 2:56 PM HST - 12/19/2021 11:59 PM HST Hospital Encounter [facility] MRI [phone] [facility] [place] [address] Bernie England MD [address] [address] Discharge Disposition: D/C Home, Self Care Social [...] - Moderate. Do not drive or operate [employer] 6 Tablet 12/15/2021 eszopiclone (LUNESTA) 3 mg [...] Priority Date/Time Associated Diagnosis Comments MRI - CERVICAL SPINE WITHOUT AND WITH IV CONTRAST Routine 12/19/2021 5:22 PM HST White matter disease documented in this encounter Results * MRI - CERVICAL SPINE WITHOUT AND WITH IV CONTRAST (12/19/2021 5:22 PM HST) [facility]ical [facility] 12/19/2021 4:27 PM HST Impressions 12/20/2021 [...] ELECTRONICALLY SIGNED BY: ??GIOVANY SEGOVIA WORKSTATION ID: [id number] Narrative 12/20/2021 10:38 AM HST Result Status: [...] or neural foraminal narrowing. Procedure Note Giovany Segovia MD - 12/20/2021 [...] ELECTRONICALLY SIGNED BY: GIOVANY SEGOVIA WORKSTATION ID: [id number] Bernie England MD MRI-ORDERABLE documented in this encounter Visit Diagnoses Diagnosis White matter disease Other conditions of brain documented in this encounter Care Teams Rail Loader Relationship Specialty Start Date End Date Ben Olmedo III, MD [address] [place] [phone] PCP - General Family Medicine 10/28/21 documented as of this encounter
--- OUTSIDE RECORDS SUMMARY | 2024-03-31 04:09 | XMS_ITS | Encounter Summary ---
Author Organization [facility] Address [address] [place] [address] Care Team Providers Care Cam Milling Machine Operator Name Role Phone Shara LEWIS MD, Ben W Primary Care Provider + Reason for Visit * Reason Comments Retention, Urine Not able to get urin e out on straight cath. Has appt Thursday with urologist in [place]. Denies fevers. Encounter Details Date Type Department Care Team (Late st Contact Info) Description 11/25/2021 7:06 PM HST - 11/25/2021 8:05 PM HST Emergency [facility] Emergency Dept [phone] [facility] [place] [address] Desi Youngblood MD [phone] [facility] [place] [place] [phone] Discharge Disposition: D/C Home, Self Care Social [...] have Coronavirus / COVID-19? No / Unsure 11/25/2021 7:06 PM HST documented as of this encounter Last Filed Vital Signs Vital Sign Reading Time Taken Comments Blood Pressure 164/82 11/25/2021 7:07 PM HST Pulse 80 11/25/2021 7:07 PM HST Temperature 36.1 ??C (96.9 ??F) 11/25/2021 7:07 PM HS T Respiratory Rate 18 11/25/2021 7:07 PM HST Oxygen Saturation 97% 11/25/2021 7:07 PM HST Inhaled Oxygen Concentration - - Weight 71.7 kg (158 lb) 11/25/2021 7:07 PM HST Height 182.9 cm (6') 11/25/2021 7:07 PM HST Body Mass Index 21.43 11/25/2021 7:07 PM HST documented in this encounter Medications at [...] ED Notes * Stephanie Dean RN - 11/25/2021 8:02 PM HST Jens Ayala was discharged from the Emergency Department ambulating, accompanied by no one. Patient/guardian verbalized understanding of all discharge instructions. Jens Ayala received: no take home meds . Patient: was NOT given narcotics or sedatives during this ED visit. Pain level 0/10 awake, alert, oriented x 3 and walks with steady gait. BP 164/82 Pulse 80 Temp 36.1 ??C (96.9 ??F) Resp 18 Ht 182.9 cm (6') Wt 71.7 kg (158 lb) SpO2 97% BMI 21.43 kg/m?? The patient received the following medications during their ED encounter: Administrations This Visit None * Desi Youngblood MD - 11/25/2021 7:44 PM HST 76 year old male [facility] [id number] ED Date of Service: 11/25/2021 Arrival time:6:50 PM Arrival mode: Walked CC: Chief Complaint Patient presents with ??? Retention, Urine Not able to get urine out on straight cath. Has appt Thursday with urologist in [place]. Denies fevers. HPI: The history is provided by the patient and medical records. Retention, Urine Presenting symptoms: no dysuria, no penile discharge, no penile pain and no scrotal pain Worsened by: Nothing Associated symptoms: urinary retention Associated symptoms: no abdominal pain, no fever, no flank pain, no groin pain, no hematuria, no nausea, no penile swelling, no urinary frequency, no urinary incontinence and no vomiting Risk factors: urinary catheter : History Medical History: Past Medical History: [...] HX ORTHOPEDIC SURGERY Right 2009 [facility] Meds: Prior to Admission Medications Prescriptions Last Dose Informant Patient Reported? Taking? triamcinolone acetonide (KENALOG) Inj 40 mg No No lidocaine hcl (local anesth.) (Xylocaine) 1 % Inj No No triamcinolone acetonide (KENALOG) Inj 40 mg No No lidocaine hcl (local anesth.) (Xylocaine) 1 % Inj No No HYDROcodone/acetaminophen 5-325 mg Oral Tablet Yes No [...] Systems Constitutional: Negative for chills and fever. Cardiovascular: Negative for chest pain. Gastrointestinal: Negative for abdominal pain, nausea and vomiting. Genitourinary: Positive for decreased urine volume. Negative for bladder incontinence, dysuria, flank pain, frequency, hematuria, penile discharge, penile pain, penile swelling and testicular pain. Musculoskeletal: Negative for back pain, myalgias, neck pain and neck stiffness. Skin: Negative for rash. Neurological: Negative for light-headedness and headaches. Psychiatric/Behavioral: Negative for agitation. All other systems reviewed and are negative. Initial vital signs: BP: 164/82, Pulse: 80, Resp: 18, Temp: 36.1 ??C (96.9 ??F), SpO2 (%): 97 %, Room Air/Liter Flow (LPM): Room air Most recent vital signs: BP: 164/82, Pulse: 80, Resp: 18, Temp: 36.1 ??C (96.9 ??F), SpO2 (%): 97 %, Room Air/Liter Flow (LPM): Room air Physical Exam Constitutional: Appearance: Normal appearance. He is not ill-appearing. Abdominal: General: Abdomen is flat. Bowel sounds are normal. There is no distension. Palpations: Abdomen is soft. Tenderness: There is no abdominal tenderness. There is no right CVA tenderness or left CVA tenderness. Comments: Bladder was not palpated No inguinal lymphadenopathy or herniation noted Genitourinary: Penis: Normal. Testes: Normal. Musculoskeletal: General: No swelling. Normal range of motion. Cervical back: Normal range of motion and neck supple. No rigidity. Skin: General: Skin is warm and dry. Coloration: Skin is not pale. Neurological: General: No focal deficit present. Psychiatric: Mood and Affect: Mood normal. Procedures: Procedures Data Reviewed Consults: None Imaging: None Emergency Physician interpretation: No results found for this visit on 11/25/21. Lab: No results found for this visit on 11/25/21. ED Course/Medical Decision Making: MDM Number of Diagnoses or Management Options Urinary disorder Diagnosis management comments: 76-year-old man who presents to the emergency room department stating that he has not urinated and he has been self catheterization with no urine return. The patient has been having problems over the past few weeks with urinary retention. Has had Mathew catheters with episodes of hematuria. He is scheduled to see the urologist next week. He is not having any other symptoms such as abdominal pain, nausea or vomiting, fever or chills. The patient looked comfortable in no distress. Bladder scan did not show any urine in the bladder. The patient did not require any further diagnostics. He will monitor his oral intake and continue his catheterization regime as before. He was strongly encouraged to keep his appointment with the urologist Amount and/or Complexity of Data Reviewed Review and summarize past medical records: yes Risk of Complications, Morbidity, and/or Mortality Presenting problems: moderate Management options: moderate Clinical Impression: Urinary disorder (primary encounter diagnosis) Disposition: ED Dispo & COD ED Disposition Discharge Condition -- Date/Time ThuNov 25, 2021 7:59 PM Comment -- No discharge procedures on file. ED Prescriptions None Follow up provider: Krissy Alcantara MD [address] [phone] DESI YOUNGBLOOD Physician 11/26/2021 18:44 documented in this encounter Plan of Treatment Not on file documented as of this encounter Visit Diagnoses Diagnosis Urinary disorder- Primary Unspecified disorder of urethra and urinary tract documented in this encounter Care Teams Cam Milling Machine Operator Relationship Specialty Start Date End Date Ben Olmedo III, MD [address] [place] [id number] PCP - General Family Medicine 10/28/21 documented as of this encounter
--- OUTSIDE RECORDS SUMMARY | 2024-03-31 04:10 | XMS_ITS | Encounter Summary ---
Author Organization [facility] Address [address] [place] [address] Care Team Providers Care Supervisor Feed House Name Role Phone Shara LEWIS MD, Ben W Primary Care Provider + Reason for Visit * Reason Comments Blood in Urine Pt reports blood silverio ts in urine x2 days Encounter Details Date Type Department Care Team (Late st Contact Info) Description 11/01/2021 5:00 PM HST - 11/01/2021 8:25 PM HST Emergency [facility] Emergency Dept [phone] [facility] [place] [address] Desi Youngblood MD [phone] [place] [phone] Discharge Disposition: D/C Home, Self Care Social [...] the money to buy more. Never true 11/02/19 22 Within the past 12 months, t he food you bought just didn't last and you didn't have money to get more. Never true 11/01/2021 Sex and Gender Information Value Date Recorded [...] have Coronavirus / COVID-19? No / Unsure 11/01/2021 5:05 PM HST documented as of this encounter Last Filed Vital Signs Vital Sign Reading Time Taken Comments Blood Pressure 155/91 11/01/2021 7:01 PM HST Pulse 61 11/01/2021 7:01 PM HST Temperature 36.5 ??C (97.7 ??F) 11/01/2021 5:07 PM HS T Respiratory Rate 18 11/01/2021 7:01 PM HST Oxygen Saturation 97% 11/01/2021 7:01 PM HST Inhaled Oxygen Concentration - - Weight 73.3 kg (161 lb 8 oz) 11/01/2021 5:05 PM HST Height 182.9 cm (6') 11/01/2021 5:05 PM HST Body Mass Index 21.9 11/01/2021 5:05 PM HST documented in this encounter Discharge Instructions * Discharge Instructions* Desi Youngblood MD - 11/01/2021 8:06 PM HST Empty your Paulson catheter as instructed Keep well-hydrated Monitor the output if you note that it is not draining please return back to the emergency room Call [facility] for an appointment next week documented in this encounter Medications at Time [...] as of this encounter Nursing Notes * Dulce Maria Morrison RN - 11/01/2021 5:19 PM HST 11/01/21 170 SDOH Screening Who is answering the SDOH [...] documented in this encounter ED Notes * Desi Youngblood MD - 11/06/2021 11:45 AM HST 76 year old male [facility] [id number] ED Date of Service: 11/01/2021 Arrival time:4:57 PM Arrival mode: Walked CC: Chief Complaint Patient presents with ??? Blood in Urine Pt reports blood clots in urine x2 days HPI: The history is provided by the patient. Blood in Urine Presenting symptoms: no dysuria, no penile discharge, no penile pain and no swelling Context: during urination Relieved by: None tried Associated symptoms: hematuria Associated symptoms: no abdominal pain, no diarrhea, no fever, no flank pain, no nausea, no penile redness, no penile swelling, no scrotal swelling, no urinary frequency, no urinary hesitation, no urinary incontinence, no urinary retention and no vomiting Risk factors: urinary catheter [...] HX ORTHOPEDIC SURGERY Right 2009 [employer] Meds: Prior to Admission Medications Prescriptions Last Dose Informant Patient Reported? Taking? HYDROcodone/acetaminophen 5-325 mg Oral Tablet Yes Yes Take 1 Tablet by mouth every 6 hours as needed for Pain. ALPRAZolam 0.5 mg Oral Tablet Yes Yes Take 0.5 mg by mouth 2 times a day. escitalopram oxalate 10 mg Oral Tablet Yes Yes Take 10 mg by mouth every morning. eszopiclone (LUNESTA) 3 mg Oral Tablet Yes Yes Take 3 mg by mouth at bedtime as needed for Sleep. ATORVASTATIN CALCIUM (ATORVASTATIN PO) Yes Yes Take by mouth. tamsulosin 0.4 mg Oral Capsule, Sustained Release 24HR Yes Yes Take 0.4 mg by mouth at bedtime. amitriptyline 100 mg Oral Tablet Yes Yes Take 100 mg by mouth at bedtime. [...] for chills and fever. Respiratory: Negative for cough. Cardiovascular: Negative for chest pain. Gastrointestinal: Negative for abdominal pain, blood in stool, constipation, diarrhea, nausea and vomiting. Genitourinary: Positive for difficulty urinating and hematuria. Negative for bladder incontinence, dysuria, flank pain, frequency, hesitancy, penile discharge, penile pain, penile swelling, scrotal swelling, testicular pain and urgency. Musculoskeletal: Negative for back pain, neck pain and neck stiffness. Skin: Negative for rash. Neurological: Negative for numbness and headaches. All other systems reviewed and are negative. Initial vital signs: BP: (!) 155/97, Pulse: 73, Resp: 16, Temp: 36.5 ??C (97.7 ??F), SpO2 (%): 94 %, Room Air/Liter Flow(LPM): Room air Most recent vital signs: BP: (!) 155/91, Pulse: 61, Resp: 18, Temp: 36.5 ??C (97.7 ??F), SpO2 (%): 97 %, Room Air/Liter Flow(LPM): Room air Physical Exam Vitals and nursing note reviewed. Constitutional: General: He is not in acute distress. Appearance: He is well-developed. He is not ill-appearing or diaphoretic. HENT: Head: Normocephalic. Eyes: Conjunctiva/sclera: Conjunctivae normal. Pupils: Pupils are equal, round, and reactive to light. Cardiovascular: Rate and Rhythm: Normal rate and regular rhythm. Pulmonary: Effort: Pulmonary effort is normal. No respiratory distress. Breath sounds: No wheezing or rales. Abdominal: General: Bowel sounds are normal. Palpations: Abdomen is soft. Tenderness: There is no abdominal tenderness. There is no guarding. Hernia: No hernia is present. Genitourinary: Testes: Normal. Musculoskeletal: General: No tenderness. Normal range of motion. Cervical back: Normal range of motion and neck supple. No tenderness. Right lower leg: No edema. Left lower leg: No edema. Skin: General: Skin is warm and dry. Coloration: Skin is not jaundiced or pale. Neurological: General: No focal deficit present. Mental Status: He is alert and oriented to person, place, and time. Psychiatric: Comments: anxious Procedures: Procedures Data Reviewed Consults: None Imaging: None Emergency Physician interpretation: No results found for this visit on 11/01/21. Lab: Results for orders placed or performed during the hospital encounter of 11/01/21 1. Basic Metabolic Panel Result Value Glucose 84 BUN 19 Creatinine 1.1 eGFR CKD-EPI Cr 2020 70 (L) Sodium 139 Potassium 4.0 Chloride 104 CO2 26 Anion Gap 13 (L) Calcium 8.8 2. CBC W/ Diff and Platelet Count Result Value White Blood Count 5.28 Red Blood Cell Count 4.36 Hemoglobin 13.8 Hematocrit 40.4 MCV 92.7 MCH 31.7 MCHC 34.2 RDW 14.0 Platelet Count 167 Imm Granulocyte 0.0 Neutrophil 61.7 Lymphocyte 30.1 Monocyte 6.1 Eosinophil 1.5 Basophil 0.6 Abs Imm Granulo 0.00 Abs Neutrophils 3.26 Abs Lymphocytes 1.59 3. PSA Diagnostic, Reflex to Free PSA (Prostate Specific Ag (PSA) Reflex) Result Value PSA, Total 17.60 (H) 4. UA, Complete, Reflex to C & S Result Value Color BROWN Appearance CLOUDY Specific Salix 1.020 pH 6.0 Protein 2+ (H) Glucose NEG Ketones NEG Urobilinogen <2.0 Bilirubin SMALL (H) Blood LARGE (H) Leukocyte Esterase NEG Nitrite NEG WBC 0-2 RBC >100 (H) Bacteria NONE SEEN Urine Culture/Sensitivity NOT INDICATED, LEUKOCYTE/NITRITE SCREEN NEG ED Course/Medical Decision Making: MDM Number of Diagnoses or Management Options Encounter for Paulson catheter fitting and adjustment Hematuria, gross Urinary retention Diagnosis management comments: 76-year-old man with a history of greenlight procedure 5 years ago who presents with hematuria that startedThis morning which the patient noted after urination. He is able to void, feels like his flow is normal, not having any post void dribbling, no blood at the meatus. He does have a sensation of pressure at the penile tip. He has had no problems since his procedure 5 years ago On arrival the patient is hemodynamically stable and afebrile Work-up in include but not limited to cystitis, urethral obstruction, prostatic hypertrophy Plan-urinalysis, CBC, BMP Bladder scan the patient on both post void was greater than 500 cc The patient was very hesitant to have Paulson catheter. The patient states he self caths at home but had not done so today he is apparently retaining urine he is unaware that. Had a long discussion with the patient and he was agreeable to the Paulson catheter which was inserted there was some hematuria but there was no clots and had good flow with good with a large amount ofurine Urine analysis came back with red cells but no white cells or signs of infection, white count and renal function were normal The patient already involved with a urologist whom he will call today for follow-up appointment. I did add a PSA on his laboratory data for the refractory urologist to follow-up with or the patient'[facility] care physician. The patient had a Paulson catheter in the past and is aware of how to care for it but he is also aware that if he has any concerns to return back to the emergency department He was complaining of discomfort at the penile tip and was given Pyridium to help relieve that he also can take ibuprofen or Tylenol as needed. Amount and/or Complexity of Data Reviewed Clinical lab tests: ordered and reviewed Clinical Impression: Hematuria, gross (primary encounter diagnosis) Urinary retention Encounter for paulson catheter fitting and adjustment Disposition: ED Dispo & COD ED Disposition Discharge Condition -- Date/Time ThuNov 01, 2021 8:05 PM Comment -- No discharge procedures on file. ED Prescriptions Medication Sig Dispense Start Date End Date Auth. Provider phenazopyridine (Pyridium) 200 mg Oral Tablet Take 1 Tablet by mouth 3 times a day as needed for Dysuria. 10 Tablet 11/01/2021 Desi Youngblood MD [facility] [address] [place] [id number] DESI YOUNGBLOOD Physician 11/06/2021 11:55 * Yuliya Salinas RN - 11/01/2021 8:25 PM HST Jens Ayala was discharged from the Emergency Department ambulating, accompanied by no one. Patient/guardian verbalized understanding of all discharge instructions. Jens Ayala received: no take home meds . Patient: was NOT given narcotics or sedatives during this ED visit. Pain level 2/10, awake, alert, oriented x 3 and walks with steady gait. BP (!) 155/91 Pulse 61 Temp 36.5 ??C (97.7 ??F) (Temporal) Resp 18 Ht 182.9 cm (6') Wt 73.3 kg (161 lb 8 oz) SpO2 97% BMI 21.90 kg/m?? The patient received the following medications during their ED encounter: Administrations This Visit ciprofloxacin HCl tab 500 mg Admin Date 11/01/2021 Action Given Dose 500 mg Route Oral Administered By Dulce Maria Morrison RN phenazopyridine tab 200 mg Admin Date 11/01/2021 Action Given Dose 200 mg Route Oral Administered By Dulce Maria Morrison RN * Dulce Maria Morrison RN - 11/01/2021 7:33 PM HST Paulson bag changed to leg bag. Pt educated on how to empty leg bag, pt verbalized understanding and states hx of usage previously * Dulce Maria Morrison RN - 11/01/2021 7:05 PM HST Pt having intermittent pain and spasms s/p paulson catheter insertion made aware, pt medicated as per MAR * Yuliya Salinas RN - 11/01/2021 5:06 PM HST Chief Complaint Patient presents with ??? Blood in Urine Pt reports blood clots in urine x2 days documented in this encounter Plan of Treatment Not on file documented as of this encounter Procedures Procedure Name Priority Date/Time Associated Diagnosis Comments BASIC METABOLIC PANEL STAT 11/01/2021 7:35 PM HST CBC W/ DIFF AND PLATELET CT STAT 11/01/2021 7:35 PM HST PROSTATE SPECIFIC AG (PSA) REFLEX STAT 11/01/2021 7:35 PM HST URINALYSIS, COMPLETE, REFLEX TO C & S STAT 11/01/2021 5:50 PM HST documented in this encounter Results * (ABNORMAL) PSA Diagnostic, Reflex to Free PSA (Prostate Specific Ag (PSA) Reflex) (11/01/2021 7:35 PM HST) Pathologist [facility] PSA, Total 17.60(H) 0.00 - 6.90 ng/mL [facility] Comment: Age Group ? Age Related Reference Range 40 - 49 years ?0.00 - 2.40 ng/mL 50 - 59 ?0.00 - 3.80 60 - 69 ?0.00 - 5.60 ?>69 ?0.00 - 6.90 PSA,TOTAL result was obtained with the [employer] TPSA assay. Results from assays of other manufacturers cannot be used interchangeably. Free PSA is performed only if Total PSA is between 2.50 - 10.00 ng/mL. 11/01/2021 7:35 PM HST 11/01/2021 7:38 PM HST Desi Youngblood MD SPECIAL CHEMISTRY-OR DERABLE LAB [facility] [phone] [place] [address] [facility] [phone] [place] [address] * CBC W/ Diff and Platelet Count (11/01/2021 7:35 PM HST) White Blood Count 5.28 3.80 - 10.80 x10(3)/uL [facility] Red Blood Cell Count 4.36 4.00 - 6.20 x10(6)/uL [facility] Hemoglobin 13.8 13.7 - 17.5 g/dL [facility] Hematocrit 40.4 40.1 - 51.0 % [facility] MCV 92.7 79.4 - 98.4 fL [facility] MCH 31.7 26.0 - 34.0 pg [facility] MCHC 34.2 32.0 - 36.0 g/dL [facility] RDW 14.0 11.6 - 14.4 % [facility] Platelet Count 167 151 - 424 x10(3)/uL [facility] Imm Granulocyte 0.0 0.0 - 1.0 % [facility] Neutrophil 61.7 34.0 - 72.0 % [facility] Lymphocyte 30.1 12.0 - 44.0 % [facility] Monocyte 6.1 0.0 - 12.0 % [facility] Eosinophil 1.5 0.0 - 7.0 % [facility] Basophil 0.6 0.0 - 2.0 % [facility] Abs Imm Granulo 0.00 0.0 - 0.10 x10(3)/uL [facility] Abs Neutrophils 3.26 1.56 - 6.20 x10(3)/uL [facility] Abs Lymphocytes 1.59 1.18 - 3.74 x10(3)/uL [facility] 11/01/2021 7:35 PM HST 11/01/2021 7:38 PM HST Desi Youngblood MD HEMATOLOGY-ORDERABLE LAB [facility] [phone] [facility] [place] [place] [address] [facility] [phone] [facility] [place] [employer] [place] [address] * (ABNORMAL) Basic Metabolic Panel (11/01/2021 7:35 PM HST) Pathologist [facility] Glucose 84 70 - 99 mg/dL [facility] BUN 19 6 - 23 mg/dL [facility] Creatinine 1.1 0.6 - 1.4 mg/dL [facility] eGFR CKD-EPI Cr 2020 70(L) >=90* mL/min/1.7 3m(2) [facility] Comment: *This CKD-EPI 2020 equation does not use a race coefficient and is not recommended for age less than 19 years. Sodium 139 133 - 145 mEq/L [facility] Potassium 4.0 3.3 - 5.1 mEq/L [facility] Chloride 104 95 - 108 mEq/L [facility] CO2 26 21 - 30 mEq/L [facility] Anion Gap 13(L) 14 - 20 mEq/L [facility] Calcium 8.8 8.3 - 10.5 mg/dL [facility] Blood 11/01/2021 7:35 PM HST 11/01/2021 7:38 PM HST Desi Youngblood MD CHEMISTRY-ORDERABLE LAB [facility] [phone] [place] [address] [facility] [phone] [facility] [address] * (ABNORMAL) UA, Complete, Reflex to C & S (11/01/2021 5:50 PM HST) Color BROWN [facility] Appearance CLOUDY [facility] Specific Salix 1.020 1.005 - 1.030 [facility] pH 6.0 5.0 - 7.5 [facility] Protein 2+(H) NEGATIVE [facility] Glucose NEG NEGATIVE [facility] Ketones NEG NEGATIVE [facility] Urobilinogen <2.0 <2.0 mg/dL mg/dL [facility] Bilirubin SMALL(H) NEGATIVE [facility] Blood LARGE(H) NEGATIVE [facility] Leukocyte Esterase NEG NEGATIVE [facility] Nitrite NEG NEGATIVE [facility] WBC 0-2 0-5 WBC/hpf /hpf [facility] RBC >100(H) 0-2 RBC/hpf /hpf [facility] Bacteria NONE SEEN NONE /hpf [facility] Urine Culture/Sensitiv ity NOT INDICATED, LEUKOCYTE/ NITRITE SCREEN NEG [facility] Urine (Urine, Clean Catch) 11/01/2021 5:50 PM HST 11/01/2021 6:03 PM HST Desi Youngblood MD URINALYSIS-ORDERABLE [facility] [phone] [place] [address] [facility] [phone] [place] [address] documented in this encounter Visit Diagnoses Diagnosis Hematuria, gross- Primary Gross hematuria Urinary retention Retention of urine, unspecified Encounter for Paulson catheter fitting and adjustment Fitting and adjustment of urinary device documented in this encounter Administered Medications Inactive Administered Medications - up to 3 most recent administrations Medication Order MAR Action Action Date Dose Rate Site ciprofloxacin HCl tab 500 mg Oral, ONCE (W/ NO SPECIFIED TIME), 1 dose, On Thu11/01/21 at 1923, STAT Given 11/01/2021 7:27 PM HST 500 mg phenazopyridine tab 200 mg Oral, ONCE, 1 dose, On Thu11/01/21 at 1903, STAT, May turn urine orange. Given 11/01/2021 7:03 PM HST 200 mg documented in this encounter Active and Recently Administered Medications Times are shown in HST. Scheduled Medication Order 10/30/2021 10/31/2021 11/01/2021 ciprofloxacin HCl tab 500 mg (COMPLETED) Oral, ONCE (W/ NO SPECIFIED TIME), 1 dose, On Thu11/01/21 at 1923, STAT 1927 (Given - Provid er: Dulce Maria Morrison RN) phenazopyridine tab 200 mg (COMPLETED) Oral, ONCE, 1 dose, On Thu11/01/21 at 1903, STAT, May turn urine orange. 1903 (Given - Provid er: Dulce Maria Morrison RN) documented in this encounter Care Teams Supervisor Feed House Relationship Specialty Start Date End Date Ben Olmedo III, MD [address] [place] [phone] PCP - General Family Medicine 10/28/21 documented as of this encounter
--- OUTSIDE RECORDS SUMMARY | 2024-03-31 04:10 | XMS_ITS | Encounter Summary ---
Author Organization The [facility] Address [address] [place] [address] Care Team Providers Care Curriculum Development Specialist Name Role Phone Unavailable Primary Care Provider Unavailabl e Reason for Visit * Reason Comments Consult Right achilles tendo n pain. Self Referred. BCBS / MDCR Encounter Details Date Type Department Care Team (Late st Contact Info) Description 05/02/2020 11:00 AM HST Office Visit [facility] [phone] [place] [address] Zbigniew Saavedra MD [phone] [facility] [address] [place] [phone] Achilles tendinosis of right lower extremity (Primary Dx); Achilles tendinitis of right lower extremity; Acute right ankle pain Discharge Disposition: D/C Home, Self Care Social History Tobacco Use Types Packs/Day Years Used Date Smoking Tobacco: Never Smokeless Tobacco: Never Alcohol Use Standard Drinks/Week Comments No 0 (1 standard drink = 0.6 oz pur e alcohol) Sex and Gender Information Value Date Recorded Sex Assigned at Not on file Gender Identity Not on file Sexual Orientation Not on file Job Start Date Occupation Industry Not on file Not on file Not on file documented as of this encounter Last Filed Vital Signs Vital Sign Reading Time Taken Comments Blood Pressure 126/80 05/02/2020 11:03 AM HST Pulse 80 05/02/2020 11:03 AM HST Temperature 36.8 ??C (98.2 ??F) 05/02/2020 11:[address] Respiratory Rate 20 05/02/2020 11:03 AM HST Oxygen Saturation 97% 05/02/2020 11:03 AM HST Inhaled Oxygen Concentration - - Weight 73.9 kg (163 lb) 05/02/2020 11:03 AM HST Height 182.9 cm (6') 05/02/2020 11:03 AM HST Body Mass Index 22.11 05/02/2020 11:03 AM HST documented in this encounter Progress Notes * Zbigniew Saavedra MD - 05/02/2020 11:00 AM HST CLINIC NOTE Chief Complaint: Chief Complaint Patient presents with ??? Consult Right achilles tendon pain. Self Referred. BCBS / MDCR Subjective: Jens Ayala is a 74 year old male who had concerns including Consult (Right achilles tendon pain.Self Referred. BCBS / MDCR).. Patient is a 74-year-old male presents for evaluation of a new problem, that of right Achilles tendon region pain. The patient recovered from his knee problem fairly well. He began to run again. He was doing more interval training. He was normally doing about 3 sprintsat a time. He attempted increase this to 5 sprints and had fairly abrupt pain in the right Achillesstopping him from continuing. He did not feel a pop and he did not have major swelling or hematoma formation. He does have a previous history of plantar fasciitis but no Achilles injury or pain. He has not noted any bruising or other skin abnormality. No numbness or tingling. No signs or symptoms of DVT. No swelling in the calf. He has pain with simple ambulation. He has been using ice. He has nosimilar problems on the left side. This is limiting his exercise activities. He presents for initial evaluation treatment recommendations. No Known Allergies Past [...] History Socioeconomic History ??? Marital status: Single Spouse name: Not on file ??? Number of children: Not on file ??? Years of education: Not on file ??? Highest education level: Not on file Occupational History ??? Not on file Social Needs ??? Financial resource strain: Not on file ??? Food insecurity Worry: Not on file Inability: Not on file ??? Transportation needs Medical: Not on file Non-medical: Not on file Tobacco Use ??? Smoking status: Never Smoker ??? Smokeless tobacco: Never Used Substance and Sexual Activity ??? Alcohol use: No ??? Drug use: No ??? Sexual activity: Not on file Lifestyle ??? Physical activity Days per week: Not on file Minutes per session: Not on file ??? Stress: Not on file Relationships ??? Social connections Talks on phone: Not on file Gets together: Not on file Attends jewish service: Not on file Active member of club or organization: Not on file Attends meetings of clubs or organizations: Not on file Relationship status: Not on file ??? Intimate partner violence Fear of current or ex partner: Not on file Emotionally abused: Not on file Physically abused: Not on file Forced sexual activity: Not on file Other Topics Concern ??? Not on file Social History Narrative ??? Not on file OB History No obstetric history on file. Outpatient Encounter Medications as of 05/02/2020 Medication Sig Dispense Refill ??? predniSONE 10 mg Oral Tablet TAKE 3 TABS (30 MG) X 4 DAYS THEN 2 TABS (20 MG) X 4 DAYS THEN 1 TAB (10 MG) X 4 DAYS #24 24 Tab 0 ??? eszopiclone (LUNESTA) 3 mg Oral Tablet Take 3 mg by mouth at bedtime as needed for Sleep. ??? ATORVASTATIN CALCIUM (ATORVASTATIN PO) Take by mouth. ??? tamsulosin 0.4 mg Oral Capsule, Sustained Release 24HR Take 0.4 mg by mouth at bedtime. ??? amitriptyline 100 mg Oral Tablet Take 100 mg by mouth at bedtime. ??? [DISCONTINUED] predniSONE 10 mg Oral Tablet Take 3 tabs (30mg) by mouth X 4days, then take 2 tabs (20mg) by mouth X 4days, then take 1 tabs (10mg) by mouth X 4days (Patient not taking: Reported on 05/02/2020) 24 Tab 0 ??? HYDROcodone/acetaminophen 5-325 mg Oral Tablet Take 1 Tab by mouth every 8 hours as needed for Pain. No facility-administered encounter medications on file as of 05/02/2020. Review of Systems: The patient's complete review of systems was obtained on the initial intake form. Please see the separate document which was reviewed. Pertinent review of systems are included in the history of present illness along with the musculoskeletal complaints. Remaining review of systems listed are unremarkable or unrelated to the patient's present orthopedic complaint. Objective: BP 126/80 Pulse 80 Temp 36.8 ??C (98.2 ??F) (Oral) Resp 20 Ht 182.9 cm (6') Wt 73.9 kg (163 lb) SpO2 97% BMI 22.11 kg/m?? Physical Examination: (If abnormal, please describe) GENERAL: Appears well-developed and well-nourished and appears in no acute distress. PSYCH: Patient's mental status and affect are grossly clinically normal. SKIN: Skin around entire right ankle and hindfoot including Achilles region intact. No bruising hematoma or other abnormality. VASCULAR: No distal edema. No clinical signs of DVT. He does have an intact dorsalis pedis pulse and some hair formation into the digits. NEURO: No isolated atrophy. Gross motor and sensory exam intact. ORTHO: Ortho exam shows no effusion or ankle swelling. There is no swelling over the Achilles tendon. By palpation the Achilles tendon is intact. Active plantar flexion strong. Achilles flexibility is decreased. The calf itself is unremarkable. The tenderness is about 3 cm above the insertion site but the Achilles tendon is tender. No nodularity. Calcaneus negative. Subtalar joint negative. The ankle joint itself is unremarkable. Remainder of the foot and ankle exam unremarkable. Testing: Xray - Heel Result Date: 05/02/2020 [facility] - Orthopedic Radiology Report Right calcaneus/heel x-ray significant for small calcific change Achilles tendon region and plantarspur INDICATION: Acute right hindfoot/Achilles pain XRAYS: Right heel x-rays as above. INTERPRETATION: Right heel x-ray series as above show no acute pathology including fracture. There is no evidence of stress fracture. No advanced degenerative changes. There is a small calcific deposit within theAchilles tendon interval proximal to the insertion. Calcar plantar spur also noted. Assessment: 1. Achilles tendinosis of right lower extremity 2. Achilles tendinitis of right lower extremity 3. Acute right ankle pain Acute Achilles tendinitis and probable pre-existing Achilles tendinosis. No evidence of major tendon disruption. Plan: X-rays and clinical impression reviewed. He understands initial attempts at nonsurgical management would be most appropriate. He understands if the symptoms were severe enough may consider bootimmobilization. At this time we will focus on symptomatic control. Relative rest advised. Nonimpactexercise only for the time being. Once his symptoms are controlled for several weeks he may begin some weightbearing exercise. We emphasized and demonstrated stretches that may help. He was instructed the proper use of heat and ice. We discussed both oral and topical anti-inflammatories with usual precautions. We discussed a custom prednisone trial to help control the symptoms more abruptly. He un derstands activities that include sudden acceleration or jumping could lead to tendon rupture. All of his questions were addressed. I will see him on an as- needed basis for persistent symptoms. May consider advanced imaging at that point. No orders of the defined types were placed in this encounter. Follow-up and Disposition ?? Return if symptoms worsen or fail to improve. Zbigniew Saavedra MD documented in this encounter Plan of Treatment Not on file documented as of this encounter Visit Diagnoses Diagnosis Achilles tendinosis of right lower extremity- Primary Achilles tendinitis of right lower extremity Achilles bursitis or tendinitis Acute right ankle pain documented in this encounter
--- OUTSIDE RECORDS SUMMARY | 2024-03-31 04:10 | XMS_ITS | Encounter Summary ---
Author Organization [facility] Address [address] [place] [address] Care Team Providers Care Terra Cotta Mason Name Role Phone Unavailable Primary Care Provider Unavailabl e Reason for Visit * Reason Comments Followup Left knee pain, S/P custom prednisone. S/P PT for LBP Encounter Details Date Type Department Care Team (Late st Contact Info) Description 02/01/2020 1:30 PM HST Office Visit [facility] [phone] [place] [address] Zbigniew Saavedra MD [phone] [facility] [address] [place] [phone] Chronic pain of left knee; Injury while running Discharge Disposition: D/C Home, Self Care Social [...] Sign Reading Time Taken Comments Blood Pressure 129/86 02/01/2020 1:16 PM HST Pulse 87 02/01/2020 1:16 PM HST Temperature 36.7 ??C (98 ??F) 02/01/2020 1:16 PM HST Respiratory Rate 18 02/01/2020 1:16 PM HST Oxygen Saturation 96% 02/01/2020 1:16 PM HST Inhaled Oxygen Concentration - - Weight 72.6 kg (160 lb 1.6 oz) 02/01/2020 1:16 P M HST Height 182.9 cm (6') 02/01/2020 1:16 PM HST Body Mass Index 21.71 02/01/2020 1:16 PM HST documented in this encounter Progress Notes * Zbigniew Saavedra MD - 02/01/2020 1:30 PM HST CLINIC NOTE Chief Complaint: Chief Complaint Patient presents with ??? Followup Left knee pain, S/P custom prednisone. S/P PT for LBP Subjective: Jens Ayala is a 74 year old male who had concerns including Followup (Left knee pain, S/P customprednisone. S/P PT for LBP).. Patient presents for ongoing care of his left knee and lower extremity in general. He has been working on the conservative measures previously discussed. He has been walking but no more than 2 miles. He has undergone physical therapy and I reviewed his most recent thera py note. He states that overall his baseline pain is a 2 out of 10 but can be episodically 5 or 6 out of 10. Fortunately the majority the time it is low- grade. He has had no swelling of the joint. Most pain is posterior and posterior lateral especially near the hamstring region. No local swelling. No redness or warmth. He denies any classic radicular features or any neurologic decline. No edema circulatory change. No bruising or skin abnormality has developed. He is tolerating the walking fairly well and is eager to return to some mild running which he believes he can do. He presents for ongoing care discussion. No Known Allergies Past Medical History: Diagnosis [...] file Gets together: Not on file Attends jew service: Not on file Active member of [...] on file. Outpatient Encounter Medications as of 02/01/2020 Medication Sig Dispense Refill ??? predniSONE 10 mg Oral Tablet Take 3 tabs (30mg) by mouth X 4days, then take 2 tabs (20mg) by mouth X 4days, then take 1 tabs (10mg) by mouth X 4days 24 Tab 0 ??? eszopiclone (LUNESTA) 3 mg Oral Tablet Take 3 mg by mouth at bedtime as needed for Sleep. ??? ATORVASTATIN CALCIUM (ATORVASTATIN PO) Take by mouth. ??? tamsulosin 0.4 mg Oral Capsule, Sustained Release 24HR Take 0.4 mg by mouth at bedtime. ??? amitriptyline 100 mg Oral Tablet Take 100 mg by mouth at bedtime. ??? HYDROcodone/acetaminophen 5-325 mg Oral Tablet Take 1 Tab by mouth every 8 hours as needed for Pain. ??? [DISCONTINUED] predniSONE 10 mg Oral Tablet Take 3 tabs (30mg) by mouth X 4days, then take 2 tabs (20mg) by mouth X 4days, then take 1 tabs (10mg) by mouth X 4days 24 Tab 0 No facility-administered encounter medications on file as of 02/01/2020. Review of Systems: Patient's review of systems was updated. There have been no significant changes including any significant hospitalizations or illnesses. No new significant symptomatology. Pertinent negatives are also included above. No constitutional type symptoms. Otherwise review of systems unremarkable for any changes. Objective: BP 129/86 (Taken On: Rt upper arm, Patient Position: Sitting, Cuff size: regular) Pulse 87 Temp36.7 ??C (98 ??F) (Temporal) Resp 18 Ht 182.9 cm (6') Wt 72.6 kg (160 lb 1.6 oz) SpO2 96% BMI 21.71 kg/m?? Physical Examination: (If abnormal, please describe) GENERAL: Patient is alert and does not appear in any acute or significant distress. SKIN: Skin around entire left knee remains unremarkable. VASCULAR: Clinically no signs of DVT. Adequate distal perfusion. NEURO: The hamstrings are still tight but nerve tension signs are classically negative. No gross motor or sensory deficit. ORTHO: The knee exam is negative for any effusion or soft tissue swelling. His hamstrings remain tight. He can achieve near full extension. Flexion is normal. MCL intact. There is no focal tendernessover the lateral joint line but more deep near the popliteus region and distal hamstring before theinsertion. The knee is grossly stable. His gait is relatively unremarkable. Testing: No further testing initiated or performed. Assessment: 1. Chronic pain of left knee predniSONE 10 mg Oral Tablet 2. Injury while running predniSONE 10 mg Oral Tablet Left knee pain. He understands his diagnosis is not definitive but differential diagnosis includes hamstring tendinitis, popliteal strain, possible lateral meniscal tear despite previous MRI or earlychondromalacia. He does not have classic findings of lumbar radiculopathy today. Plan: At this point his symptoms are tolerable and near their baseline. For that reason we advocated continue conservative nonsurgical management. There is no evidence that arthroscopy would be of great benefit here. We will still keep his lumbar spine in mind but most symptoms are now well localized. He understands running must be added very carefully monitoring his symptoms. He should continue therapy and switch to a home exercise program that is doable. This emphasized heat and stretching especially before activity. He should not run or walk on any significant incline. Continue symptomatictreatment. He may consider topical anti-inflammatories for better local control and lieu of his oral NSAIDs. At this point as his symptoms are low-grade intolerable I will see him as needed for reevaluation as his activity increases. As it was helpful I did write for custom prednisone for future emergent use explaining the limitations, limited use and rationale behind its future usage. I will see him as needed. No orders of the defined types were placed in this encounter. Follow-up and Disposition ?? Return if symptoms worsen or fail to improve. Zbigniew Saavedra MD documented in this encounter Plan of Treatment Not on file documented as of this encounter Visit Diagnoses Diagnosis Chronic pain of left knee Pain in joint, lower leg Injury while running documented in this encounter
--- OUTSIDE RECORDS SUMMARY | 2024-03-31 04:10 | XMS_ITS | Encounter Summary ---
Author Organization [facility] Address [address] [place] [address] Care Team Providers Care Buy Boat Operator Name Role Phone Unavailable Primary Care Provider Unavailabl e Reason for Visit * Reason Onset Date Comments Other 01/04/2020 LEFT knee MRI at [facility] per Dr. Saavedra Encounter Details Date Type Department Care Team (Late st Contact Info) Description 01/04/2020 Telephone [facility] [phone] [facility] [address] [place] [address] Stephy Monet Other (LEFT knee MRI at [facility] per Dr. Saavedra) Social History Tobacco Use Types Packs/Day Years [...] encounter Miscellaneous Notes * Telephone Encounter - Stephy Monet - 01/10/2020 9:37 AM HST Patient scheduled. * Telephone Encounter - Stephy Monet - 01/09/2020 3:11 PM HST MRI completed. Phone call to patient to schedule - left message re: appointment to review MRI, please contact office. Need: Appoitment with Dr. Saavedra to review MRI. * Telephone Encounter - Stephy Monet - 01/04/2020 11:22 AM HST Orders entered - patient with medicare primary - no prior authorization needed. Need: MRI result and appoitment to review with Dr. Saavedra documented in this encounter Plan of Treatment Not on file documented as of this encounter Visit Diagnoses Not on filedocumented in this encounter
--- OUTSIDE RECORDS SUMMARY | 2024-03-31 04:10 | XMS_ITS | Encounter Summary ---
Author Organization [facility] Address [address] [place] [address] Care Team Providers Care Manager Culture Name Role Phone Unavailable Primary Care Provider Unavailabl e Reason for Visit * Reason Comments Consult Left knee pain. Refe rred by Jens Esposito. * Referral (Routine) - Closed Specialty Diagnoses / Procedures Referred By Tram griffin Referred To Contact Orthopedics Diagnoses Unilateral primary osteoarthritis, left knee Pain in left leg Jens Esposito MD [phone] [facility] [employer] [facility] [address] [place] [address] [place] [facility] [phone] [facility] [address] [address] Referral ID Status Reason Start Date Expiration Date Visits Re quested Visits Authorized [id number] Closed 12/26/2019 12/25/2020 1 1 Encounter Details Date Type Department Care Team (Late st Contact Info) Description 01/04/2020 11:00 AM HST Office Visit [facility] [phone] [facility] [address] [place] [address] Joshua Patricio MD [phone] [facility] [address] [place] [address] Left knee pain, unspecified chronicity (Primary Dx); Chronic pain of left knee; Injury while [...] Sign Reading Time Taken Comments Blood Pressure 133/87 01/04/2020 11:00 AM HST Pulse 74 01/04/2020 11:00 AM HST Temperature 36.9 ??C (98.4 ??F) 01/04/2020 11:[address] Respiratory Rate 20 01/04/2020 11:00 AM HST Oxygen Saturation 97% 01/04/2020 11:00 AM HST Inhaled Oxygen Concentration - - Weight 74.5 kg (164 lb 3.2 oz) 01/04/2020 11:00 AM HST Height 182.9 cm (6') 01/04/2020 11:00 AM HST Body Mass Index 22.27 01/04/2020 11:00 AM HST documented in this encounter Patient Instructions * Patient Instructions* Stephy Monet - 01/04/2020 11:00 AM HST An order for your LEFT knee MRI [facility] Rad[facility] #[id number]. Please reach out to their office if you have not heard from them in a few days to schedule. Once the DATE of your MRI is known, please call the office to schedule a follow up appointment to review those results. ~CHANDLER Keyes documented in this encounter Progress Notes * Joshua Patricio MD - 01/04/2020 11:00 AM HST CLINIC NOTE Chief Complaint: Chief Complaint Patient presents with ??? Consult Left knee pain. Referred by Jens Esposito. Subjective: Jens Ayala is a 74 year old male who had concerns including Consult (Left knee pain. Referred byJens Esposito.).. Patient is a pleasant 74-year-old male who is active and enjoys running who presents for chronic left knee pain. Patient reports an injury about 4 years ago when he was chopping some lava rock and was diagnosed with some form of bone contusion or microfracture. Over time his symptoms did improve. He did not require surgery. Several months ago the patient was running and had abruptpopliteal pain. It is in the same location as he experienced previously. Minimal swelling of the knee occurred. He has had persistent and limiting symptoms since that time. Most pain is activity related but can be significant at rest. He has tried ibuprofen with no relief. He has been using rare [place] with some help. He has no inflammatory history. No calf pain leg swelling or signs of DVT. No peripheral vascular disease. No radicular neurologic symptoms. No bruising is developed. No popliteal swelling is developed. Patient did go to physical therapy but had a significant increase in symptomsand additional anteromedial joint pain. He presents for initial orthopedic evaluation treat recommendations. No Known Allergies Past Medical History: [...] file Gets together: Not on file Attends methodist service: Not on file Active member of [...] on file. Outpatient Encounter Medications as of 01/04/2020 Medication Sig Dispense Refill ??? eszopiclone (LUNESTA) 3 mg Oral Tablet Take 3 mg by mouth at bedtime as needed for Sleep. ??? ATORVASTATIN CALCIUM (ATORVASTATIN PO) Take by mouth. ??? tamsulosin 0.4 mg Oral Capsule, Sustained Release 24HR Take 0.4 mg by mouth at bedtime. ??? [DISCONTINUED] eszopiclone (LUNESTA) 3 mg Oral Tablet ??? amitriptyline 100 mg Oral Tablet Take 100 mg by mouth at bedtime. ??? HYDROcodone/acetaminophen 5-325 mg Oral Tablet Take 1 Tab by mouth every 8 hours as needed for Pain. ??? [DISCONTINUED] METHYLPHENIDATE HCL (METHYLPHENIDATE PO) Take by mouth. ??? [DISCONTINUED] trimethoprim/sulfamethoxazole (BACTRIM DS) 160/800 mg Oral Tablet Take 1 Tab by mouth every 24 hours. 5 Tab 0 ??? [DISCONTINUED] escitalopram oxalate 20 mg Oral Tablet Take 20 mg by mouth every morning. ??? [DISCONTINUED] levofloxacin (LEVAQUIN) 500 mg Oral Tablet Take 1 Tab by mouth every 24 hours. 10 Tab 0 No facility-administered encounter medications on file as of 01/04/2020. Review of Systems: The patient's complete review of systems was obtained on the initial intake form. Please see the separate document which was reviewed. Pertinent review of systems are included in the history of present illness along with the musculoskeletal complaints. Remaining review of systems listed are unremarkable or unrelated to the patient's present orthopedic complaint. Objective: BP 133/87 (Taken On: Rt upper arm, Patient Position: Sitting, Cuff size: regular) Pulse 74 Temp36.9 ??C (98.4 ??F) (Oral) Resp 20 Ht 182.9 cm (6') Wt 74.5 kg (164 lb 3.2 oz) SpO2 97% BMI 22.27 kg/m?? Physical Examination: (If abnormal, please describe) GENERAL: Appears well-developed and well-nourished and appears in no acute distress. PSYCH: Patient's mental status and affect are grossly clinically normal. SKIN: The skin around entire left knee is unremarkable. No bursitis or other soft tissue pathology. VASCULAR: Clinically no signs of DVT and adequate dorsalis pedis pulse noted. NEURO: No isolated atrophy and gross motor and sensory exam are intact. ORTHO: Examination shows no malalignment or deformity. He has a symmetrical valgus alignment. Currently no significant effusion. No redness warmth or more acute findings. MCL intact in all degrees ofextension or flexion. ACL intact with negative Lockman. He is tender along the medial joint line Adi's maneuver reproduces posterior medial pain. He has some tenderness over the medial aspect ofthe posterior joint line. No Barker's cyst is palpable. Flexion is intact but he does resist full extension. The extensor mechanism is intact. No tenderness over the patellar or quadriceps tendons northe respective insertions. No pain with patellar compression or apprehension testing. No crepitation with tracking. Gait is mildly antalgic. No referred hip or lumbar findings. Testing: Please see today's x-ray report for complete details but to summarize is large unremarkable for acute or significant degenerative findings. Assessment: 1. Left knee pain, unspecified chronicity MRI - KNEE WITHOUT IV CONTRAST 2. Chronic pain of left knee 3. Injury while running Recurrent chronic left knee pain suspicious for meniscal tear either a posterior root tear or possible bucket-handle tear given the difficulty with extension. 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 Plan: Given the recurrent symptoms well localized to the joint line as well as failure of therapy and anti-inflammatories an MRI certainly appropriate. This will dictate our next step in treatment including possible cortisone injection if more degenerative findings noted versus possible arthroscopyfor meniscal pathology. We did discuss our global conservative nonsurgical approach to the painful knee. This emphasized heat and range of motion including extension. He should avoidWe did discuss our global conservative nonsurgical approach to the painful knee. This emphasized heat and range of motion including extension. He should avoid pillows underneath the knee. Currently relative rest advised that he should avoid impact activities. Biking and swimming as tolerated. He will use ice after activity. Anti-inflammatories may still be of benefit as medically allowed. Further recommendations will await the results of this MRI. No orders of the defined types were placed in this encounter. Follow-up and Disposition ?? Return After MRI can be completed. Joshua Patricio MD documented in this encounter Miscellaneous Notes * Communication Body - Joshua Patricio MD - 01/04/2020 11:00 AM HST CLINIC NOTE Chief Complaint: Chief Complaint Patient presents with ??? Consult Left knee pain. Referred by Jens Esposito. Subjective: Jens Ayala is a 74 year old male who had concerns including Consult (Left knee pain. Referred byJens Esposito.).. Patient is a pleasant 74-year-old male who is active and enjoys running who presents for chronic left knee pain. Patient reports an injury about 4 years ago when he was chopping some [employer] [place] and was diagnosed with some form of bone contusion or microfracture. Over time his symptoms did improve. He did not require surgery. Several months ago the patient was running and had abruptpopliteal pain. It is in the same location as he experienced previously. Minimal swelling of the knee occurred. He has had persistent and limiting symptoms since that time. Most pain is activity related but can be significant at rest. He has tried ibuprofen with no relief. He has been using rare [place] with some help. He has no inflammatory history. No calf pain leg swelling or signs of DVT. No peripheral vascular disease. No radicular neurologic symptoms. No bruising is developed. No popliteal swelling is developed. Patient did go to physical therapy but had a significant increase in symptomsand additional anteromedial joint pain. He presents for initial orthopedic evaluation treat recommendations. No Known Allergies Past Medical History: [...] file Gets together: Not on file Attends methodist service: Not on file Active member of [...] on file. Outpatient Encounter Medications as of 01/04/2020 Medication Sig Dispense Refill ??? eszopiclone (LUNESTA) 3 mg Oral Tablet Take 3 mg by mouth at bedtime as needed for Sleep. ??? ATORVASTATIN CALCIUM (ATORVASTATIN PO) Take by mouth. ??? tamsulosin 0.4 mg Oral Capsule, Sustained Release 24HR Take 0.4 mg by mouth at bedtime. ??? [DISCONTINUED] eszopiclone (LUNESTA) 3 mg Oral Tablet ??? amitriptyline 100 mg Oral Tablet Take 100 mg by mouth at bedtime. ??? HYDROcodone/acetaminophen 5-325 mg Oral Tablet Take 1 Tab by mouth every 8 hours as needed for Pain. ??? [DISCONTINUED] METHYLPHENIDATE HCL (METHYLPHENIDATE PO) Take by mouth. ??? [DISCONTINUED] trimethoprim/sulfamethoxazole (BACTRIM DS) 160/800 mg Oral Tablet Take 1 Tab by mouth every 24 hours. 5 Tab 0 ??? [DISCONTINUED] escitalopram oxalate 20 mg Oral Tablet Take 20 mg by mouth every morning. ??? [DISCONTINUED] levofloxacin (LEVAQUIN) 500 mg Oral Tablet Take 1 Tab by mouth every 24 hours. 10 Tab 0 No facility-administered encounter medications on file as of 01/04/2020. Review of Systems: The patient's complete review of systems was obtained on the initial intake form. Please see the separate document which was reviewed. Pertinent review of systems are included in the history of present illness along with the musculoskeletal complaints. Remaining review of systems listed are unremarkable or unrelated to the patient's present orthopedic complaint. Objective: BP 133/87 (Taken On: Rt upper arm, Patient Position: Sitting, Cuff size: regular) Pulse 74 Temp36.9 ??C (98.4 ??F) (Oral) Resp 20 Ht 182.9 cm (6') Wt 74.5 kg (164 lb 3.2 oz) SpO2 97% BMI 22.27 kg/m?? Physical Examination: (If abnormal, please describe) GENERAL: Appears well-developed and well-nourished and appears in no acute distress. PSYCH: Patient's mental status and affect are grossly clinically normal. SKIN: The skin around entire left knee is unremarkable. No bursitis or other soft tissue pathology. VASCULAR: Clinically no signs of DVT and adequate dorsalis pedis pulse noted. NEURO: No isolated atrophy and gross motor and sensory exam are intact. ORTHO: Examination shows no malalignment or deformity. He has a symmetrical valgus alignment. Currently no significant effusion. No redness warmth or more acute findings. MCL intact in all degrees ofextension or flexion. ACL intact with negative Lockman. He is tender along the medial joint line Adi's maneuver reproduces posterior medial pain. He has some tenderness over the medial aspect ofthe posterior joint line. No Barker's cyst is palpable. Flexion is intact but he does resist full extension. The extensor mechanism is intact. No tenderness over the patellar or quadriceps tendons northe respective insertions. No pain with patellar compression or apprehension testing. No crepitation with tracking. Gait is mildly antalgic. No referred hip or lumbar findings. Testing: Please see today's x-ray report for complete details but to summarize is large unremarkable for acute or significant degenerative findings. Assessment: 1. Left knee pain, unspecified chronicity MRI - KNEE WITHOUT IV CONTRAST 2. Chronic pain of left knee 3. Injury while running Recurrent chronic left knee pain suspicious for meniscal tear either a posterior root tear or possible bucket-handle tear given the difficulty with extension. 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 Plan: Given the recurrent symptoms well localized to the joint line as well as failure of therapy and anti-inflammatories an MRI certainly appropriate. This will dictate our next step in treatment including possible cortisone injection if more degenerative findings noted versus possible arthroscopyfor meniscal pathology. We did discuss our global conservative nonsurgical approach to the painful knee. This emphasized heat and range of motion including extension. He should avoidWe did discuss our global conservative nonsurgical approach to the painful knee. This emphasized heat and range of motion including extension. He should avoid pillows underneath the knee. Currently relative rest advised that he should avoid impact activities. Biking and swimming as tolerated. He will use ice after activity. Anti-inflammatories may still be of benefit as medically allowed. Further recommendations will await the results of this MRI. No orders of the defined types were placed in this encounter. Follow-up and Disposition ?? Return After MRI can be completed. Joshua Patricio MD documented in this encounter Plan of Treatment Not on file documented as of this encounter Results * MRI - KNEE WITHOUT IV CONTRAST (01/06/2020 2:28 PM HST) Anatomical Region Laterality Modality Knee Magnetic Resonan ce 01/06/2020 5:59 PM HST Impressions 01/07/2020 3:32 PM HST IMPRESSION: MENISCI, LIGAMENTS AND TENDONS INTACT. THIS REPORT WAS ELECTRONICALLY SIGNED BY TIM AVILA. Narrative 01/07/2020 3:32 PM HST Result Status: Finalized Authenticating Radiologist: Tim Avila MD Requestor: JOSHUA PATRICIO Reason for Exam: LEFT KNEE PAIN; PAIN EXAMINATION: ??MRI LEFT KNEE WITHOUT CONTRAST CLINICAL HISTORY: Posterior Pain TECHNIQUE: Routine non-contrast MRI of the knee COMPARISON: 01/04/2020 radiographs RESULT: MENISCI: The medial and lateral menisci are intact. LIGAMENTS: The cruciate ligaments and collateral ligaments are intact. CARTILAGE: The articular cartilage is preserved in all three joint compartments. TENDONS: The visualized extensor mechanism, biceps femoris tendon, popliteus tendon and the remaining tendons about the knee appear intact. BONE MARROW: No evidence of fracture or bone marrow replacing lesion. MUSCLE: Muscle bulk and signal intensity are normal. JOINT FLUID AND SYNOVIUM: Physiologic quantity of joint fluid. OTHER: No other significant abnormality identified. Procedure Note Tim Avila MD - 01/07/2020 Result Status: Finalized Authenticating Radiologist: Tim Avila MD Requestor: JOSHUA PATRICIO Reason for Exam: LEFT KNEE PAIN; PAIN EXAMINATION: MRI LEFT KNEE WITHOUT CONTRAST CLINICAL HISTORY: Posterior Pain TECHNIQUE: Routine non-contrast MRI of the knee COMPARISON: 01/04/2020 radiographs RESULT: MENISCI: The medial and lateral menisci are intact. LIGAMENTS: The cruciate ligaments and collateral ligaments are intact. CARTILAGE: The articular cartilage is preserved in all three jointcompartments. TENDONS: The visualized extensor mechanism, biceps femoris tendon,popliteus tendon and the remaining tendons about the knee appear intact. BONE MARROW: No evidence of fracture or bone marrow replacing lesion. MUSCLE: Muscle bulk and signal intensity are normal. JOINT FLUID AND SYNOVIUM: Physiologic quantity of joint fluid. OTHER: No other significant abnormality identified. IMPRESSION: IMPRESSION: MENISCI, LIGAMENTS AND TENDONS INTACT. THIS REPORT WAS ELECTRONICALLY SIGNED BY TIM AVILA. Joshua Patricio MD MRI-ORDERABLE documented in this encounter Visit Diagnoses Diagnosis Left knee pain, unspecified chronicity- Primary Chronic pain of left knee Pain in joint, lower leg Injury while running Left knee pain, unspecified chronicity documented in this encounter
--- OUTSIDE RECORDS SUMMARY | 2024-03-31 04:10 | XMS_ITS | Encounter Summary ---
Author Organization [facility] Address [address] [place] [address] Care Team Providers Care Bias Binding Cutter Name Role Phone Shara LEWIS MD, Ben Webb Primary Care Provider + Reason for Referral * Imaging (Routine) - Closed Specialty Diagnoses / Procedures Referred By Tram griffin Referred To Contact Diagnoses Multiple sclerosis (CMS/HCC) Other hereditary and idiopathic neuropathies Procedures MRI - BRAIN WITHOUT IV CONTRAST Ben Brown III, MD [address] [place] [phone] Referral ID Status Reason Start Date Expiration Date Visits Re quested Visits Authorized [id number] Closed 10/24/2021 1 1 Reason for Visit * Imaging (Routine) - Closed Specialty Diagnoses / Procedures Referred By Tram griffin Referred To Contact Diagnoses Multiple sclerosis (CMS/HCC) Other hereditary and idiopathic neuropathies Procedures MRI - BRAIN WITHOUT IV CONTRAST Ben Brown III, MD [address] [place] [phone] Referral ID Status Reason Start Date Expiration Date Visits Re quested Visits Authorized [id number] Closed 10/24/2021 1 1 Encounter Details Date Type Department Care Team (Late st Contact Info) Description 10/28/2021 10:00 AM HST - 10/28/2021 11:59 PM HST Hospital Encounter [facility] MRI [phone] [place] [address] Referring, Doctor, DO NOT change name. DO NOT not update address. If you do not know how to create a new referring physician, contact your electrician supervisor airplane. Discharge Disposition: D/C Home, Self Care Social [...] have Coronavirus / COVID-19? No / Unsure 10/28/2021 9:58 AM HST documented as of this encounter Medications at Time of Discharge Medication Sig Dispensed Refills Start Date End Date eszopiclone (LUNESTA) 3 mg Oral Tablet Take 3 mg by mouth at bedtime as needed for Sleep. ATORVASTATIN CALCIUM (ATORVASTATIN PO) Take by mouth. amitriptyline 100 mg Oral Tablet Take 100 mg by mouth at bedtime. documented as of this encounter Plan of Treatment Not on file documented as of this encounter Procedures Procedure Name Priority Date/Time Associated Diagnosis Comments MRI - BRAIN WITHOUT IV CONTRAST Routine 10/28/2021 10:50 AM HST Multiple sclerosis (CMS/HCC) Other hereditary and idiopathic neuropathies documented in this encounter Results * MRI - BRAIN WITHOUT IV CONTRAST (10/28/2021 10:50 AM HST) Anatomical Region Laterality Modality Brain Magnetic Resonan ce 10/28/2021 1:44 PM HST Impressions 10/28/2021 1:53 PM HST IMPRESSION: MULTIPLE SUPRATENTORIAL WHITE MATTER LESIONS, WHICH COULD REPRESENT DEMYELINATING DISEASE GIVEN THE PROVIDED HISTORY. ELECTRONICALLY SIGNED BY: ??REJI SHELDON WORKSTATION ID: [id number] Narrative 10/28/2021 1:53 PM HST Result Status: Finalized Authenticating Radiologist: Reji Sheldon Requestor: BEN BROWN III Reason for Exam: G35 MULTIPLE SCLEROSIS (CMS/HCC) G60.8 OTHER HEREDITARY AND IDIOPATHIC NEUROPATHIES EXAMINATION: MRI - BRAIN WITHOUT IV CONTRAST ?? CLINICAL INDICATION: G35 MULTIPLE SCLEROSIS (CMS/HCC) G60.8 OTHER HEREDITARY AND IDIOPATHIC NEUROPATHIES. TECHNIQUE: ??1.5-Donya system. Non-contrast coronal and axial diffusion-weighted images of the brain with ADC maps, axial T2-weighted, gradient echo, axial and sagittal T2- FLAIR, axial T1-weighted, coronal T1-weighted, and sagittal volumetric T1-weighted images of the brain. COMPARISON: None available. FINDINGS: There are multiple T2 hyperintensities throughout the supratentorial white matter. Many of the periventricular lesions demonstrate a perivenular distribution. There are no callosal lesions or infratentorial lesions. There is no restricted diffusion to suggest acute infarct. There is no acute intracranial hemorrhage or extra-axial collection. There is no midline shift or downward herniation. Intracranial flow voids are preserved. The ventricles and sulci are normal in size for patient's age. The visualized paranasal sinuses are well-aerated. The mastoid air cells are clear. ??The orbits are unremarkable. The bone marrow signal is within normal limits. Procedure Note Reji Sheldon MD - 10/28/2021 Result Status: Finalized Authenticating Radiologist: Reji Sheldon Requestor: BEN BROWN III Reason for Exam: G35 MULTIPLE SCLEROSIS (CMS/HCC) G60.8 OTHER HEREDITARYAND IDIOPATHIC NEUROPATHIES EXAMINATION: MRI - BRAIN WITHOUT IV CONTRAST CLINICAL INDICATION: G35 MULTIPLE SCLEROSIS (CMS/HCC) G60.8 OTHERHEREDITARY AND IDIOPATHIC NEUROPATHIES. TECHNIQUE: 1.5-Donya system. Non-contrast coronal and axialdiffusion-weighted images of the brain with ADC maps, axial T2-weighted, gradient echo, axial and sagittalT2- FLAIR, axial T1-weighted, coronal T1-weighted, and sagittal volumetric T1-weightedimages of the brain. COMPARISON: None available. FINDINGS: There are multiple T2 hyperintensities throughout the supratentorial whitematter. Many of the periventricular lesions demonstrate a perivenular distribution. There areno callosal lesions or infratentorial lesions. There is no restricted diffusion to suggest acute infarct. There is noacute intracranial hemorrhage or extra-axial collection. There is no midline shift ordownward herniation. Intracranial flow voids are preserved. The ventricles and sulci are normalin size for patient's age. The visualized paranasal sinuses are well-aerated. The mastoid air cellsare clear. The orbits are unremarkable. The bone marrow signal is within normal limits. IMPRESSION: IMPRESSION: MULTIPLE SUPRATENTORIAL WHITE MATTER LESIONS, WHICH COULD REPRESENTDEMYELINATING DISEASE GIVEN THE PROVIDED HISTORY. ELECTRONICALLY SIGNED BY: REJI SHELDON WORKSTATION ID: [id number] Ben Brown III, MD MRI-ORDERABLE documented in this encounter Visit Diagnoses Diagnosis Multiple sclerosis (CMS/HCC) Multiple sclerosis Other hereditary and idiopathic neuropathies documented in this encounter Care Teams Bias Binding Cutter Relationship Specialty Start Date End Date Ben Brown III, MD [address] [place] [phone] PCP - General Family Medicine 10/28/21 documented as of this encounter
--- OUTSIDE RECORDS SUMMARY | 2024-03-31 04:10 | XMS_ITS | Encounter Summary ---
Author Organization [facility] Address [address] [place] [address] Care Team Providers Care Fundraising Consultant Name Role Phone Unavailable Primary Care Provider Unavailabl e Encounter Details Date Type Department Care Team (Late st Contact Info) Description 04/29/2021 2:00 PM HST Ancillary Procedure [facility] Imaging Specialty [phone] [facility] [address], [address] [place] [address] Zbigniew Saavedra MD [phone] [facility] [address] [facility] [place] [phone] Left elbow pain Discharge Disposition: D/C Home, Self Care [...] ELBOW 3V (AP, LATERAL & OBLIQUE) Routine 04/29/2021 2:05 PM HST Left elbow pain documented in this encounter Results * XRAY - ELBOW 3V (AP, LATERAL & OBLIQUE) (04/29/2021 2:05 PM HST) Anatomical Region Laterality Modality Elbow Computed Radiogr aphy Impressions 04/30/2021 1:20 PM HST Left elbow x-rays negative for acute pathology including fracture or dislocation. ??There are no advanced degenerative changes. ?? Triceps enthesopathy noted. ??No effusion or other changes. INDICATION: Chronic left elbow pain. XRAYS: Left elbow x-rays as above. INTERPRETATION: Left elbow x-rays negative for acute pathology including fracture or dislocation. ??There are no advanced degenerative changes. ?? Triceps enthesopathy noted. ??No effusion or other changes. Narrative 04/30/2021 1:20 PM HST [facility] Specialty [facility] - Orthopedic Radiology Report Zbigniew Saavedra MD XRAY-ORDERABLE documented in this encounter Visit Diagnoses Diagnosis Left elbow pain Pain in joint, upper arm documented in this encounter
--- OUTSIDE RECORDS SUMMARY | 2024-03-31 04:10 | XMS_ITS | Encounter Summary ---
Author Organization [facility] Address [address] [place] [address] Care Team Providers Care Motor Vehicle Assembler Name Role Phone Unavailable Primary Care Provider Unavailabl e Reason for Referral * Referral (Routine) - Closed Specialty Diagnoses / Procedures Referred By Contac t Referred To Contact Rehabilitation Diagnoses Pain in left knee Stiffness of left knee, not elsewhere classified Difficulty in walking, not elsewhere classified Unilateral primary osteoarthritis, left knee Procedures Outpatient Physical Therapy Evaluate and Treat Jens Esposito MD [phone] [facility] [phone] [address] [facility] Physical Therapy [phone] [place] [address] Referral ID Status Reason Start Date Expiration Date Visits Re quested Visits Authorized [id number] Closed 11/09/2020 2 2 Reason for Visit * Referral (Routine) - Closed Specialty Diagnoses / Procedures Referred By Contac t Referred To Contact Rehabilitation Diagnoses Pain in left knee Stiffness of left knee, not elsewhere classified Difficulty in walking, not elsewhere classified Unilateral primary osteoarthritis, left knee Procedures Outpatient Physical Therapy Evaluate and Treat Jens Esposito MD [phone] [phone] [address] Op Physical Therapy [phone] [facility] [place] [address] Referral ID Status Reason Start Date Expiration Date Visits Re quested Visits Authorized [id number] Closed 11/09/2020 2 2 Encounter Details Date Type Department Care Team (Late st Contact Info) Description 11/21/2020 8:30 AM HST - 11/21/2020 11:59 PM HST Hospital Encounter [facility] Outpatient Rehab [phone] [facility] [place] [address] Jens Esposito MD [phone] [facility] [address] [place] [phone] Jenn Brewer, PT Discharge Disposition: Still A Patient Social [...] at bedtime. predniSONE 10 mg Oral Tablet TAKE 3 TABS (30 MG) X 4 DAYS THEN 2 TABS (20 MG) X 4 DAYS THEN 1 TAB (10 MG) X 4 DAYS #24 24 Tab 05/02/2020 04/29/2021 documented as of this encounter Consult Notes * Jenn Brewer, PT - 11/21/2020 8:30 AM HST PLAN OF CARE CERTIFICATION Electronically cosign OR manually sign below to certify this Rehab plan of care: o As is o With Modifications*: * For electronic modifications, use attestation Physician / NPP Signature: Date: Physician / NPP Name: Jens Esposito MD OUTPATIENT PHYSICAL THERAPY INITIAL EVALUATION Name: Jens Ayala : 1945 Date of Service: 11/21/2020 Referring Physician / NPP: Jens Esposito MD Referral / Medical Diagnosis: Osteoarthritis of left knee, unspecified osteoarthritis type [M17.12] Treatment Diagnosis: Left knee pain [M25.562], Left knee stiffness [M25.662], Difficulty walking [R26.2] ASSESSMENT / REASON FOR SKILLED THERAPY Patient presents to physical therapy with left knee pain, decreased mobility and difficulty with walking/running. Signs and symptoms are consistent with left knee osteoarthritis. Patient is alert andoriented x 4 and consents to therapy intervention. Patient would benefit from physical therapy services to address body and structure impairments consisting of deficits and/or limitations in ROM, strength, proprioception, myofacial restrictions, balance, gait, and to manage or alleviate pain to improve overall functional outcomes. 11/21/2020 Penitentiary Goals (see Duration below) 1) Patient will demonstrate ability to walk at least 300 ft, equal weight shift and step length in order to normalize gait pattern 2) Patient will demonstrate ability to descend at least 6 stairs with 1 rail, good eccentric control to access stairs in community 3) Patient will report no pain with ADL activity 4) Patient will demonstrate improved function as seen by increase in the Lower Extremity FunctionalScale by at least 10% (current: 71%) PROGNOSIS/REHABILITATION POTENTIAL:Good PLAN OF TREATMENT: Frequency: 2 x/week Duration: 10 visits by 02/19/2021 Interventions: Therapeutic exercise, Therapeutic activity, Neuromuscular re- education, Manual therapy, Home exercise program instruction, Patient/caregiver education, Body mechanics/posture training,Self-care/home management Modalities: Ultrasound and Electrical Stimulation and Gait Training Recommendations: Initiate above treatment plan Thank you for the opportunity to work with your patient. Please call me at [phone] if you haveany concerns. Jenn Brewer, PT SUBJECTIVE Patient is a 75 year old male with chief complaints of left knee pain affecting stand, walk and runactivity. He reports he has experienced a relapse/recovery stillaguamish about 4 times since last PT sessions but recently experienced increased pain post sprinting on a track.The pain is in the posterior lateral knee region. Date of referral: 11/08/20, onset a couple weeks ago Current functional limitation(s): stand, walk, run, squat, stair climb Prior to symptom onset, patient was able to perform the above listed functions with no restrictions. Preferred Language: Romansh [1] Patient / Caregiver Stated Goals: Decrease pain 11/21/2020 Pain Location: left posterior knee Max 11/07 Min 0/10 Current 09/09 Imaging: No results found. Allergies: Patient has no known allergies. Past Medical History: Diagnosis Date ??? Kidney disease BPH ??? Pure hypercholesterolemia ??? Restless leg syndrome ??? Sleep disorder Past Surgical History: Procedure Laterality Date ??? HX KIDNEY/BLADDER/PROSTATE SURGERY prostate surgery ??? HX ORTHOPEDIC SURGERY Right 2009 TENNIS ELBOW Current Outpatient Medications Medication Sig Dispense Refill ??? predniSONE 10 [...] 8 hours as needed for Pain. No current facility-administered medications for this encounter. OBJECTIVE Palpation Left Tenderness of the distal biceps femoris, distal semimembranosus, distal semitendinosus, lateral gastrocnemius, medial gastrocnemius and vastus lateralis. Neurological Testing Sensation Knee Left Knee Intact: light touch Right Knee Intact: light touch Active Range of Motion Left Knee Flexion: 135 degrees Extension: 10 degrees with pain Right Knee Normal active range of motion Flexion: 140 degrees Extension: 0 degrees Patellar Mobility Left Knee Patellar tendons within functional limits include the medial, lateral, superior and inferior. Patellar Static Positioning Left Knee: WFL Right Knee: WFL Strength/Myotome Testing Left Knee Flexion: 4+ Prone flexion: 4+ Extension: 4+ Quadriceps contraction: good Right Knee Normal strength Tests Left Knee Negative anterior drawer, Apley's compression, patella-femoral grind and posterior drawer. Ambulation Observational Gait Additional Observational Gait Details Pt demonstrates decreased heel strike and toe off L with short step and stride length. Physiological factors affecting the patient's clinical presentation include pain, and are evolving & changing Functional Outcome Scales Evaluation from 11/21/2020 in [facility] Outpatient Rehab Lower Extremity % of Maximum Function 71 Treatment performed today: OUTPATIENT PHYSICAL THERAPY TREATMENT NOTE Visit #: 09/09 Treatment Start Time: 839 1:1 Direct Physical Therapist Contact: Yes Treatment: Therapeutic Exercises Exercise #1: recumbent bike 5 min Hip Abduction: sidelying 10x hold 10 sec Hip Adduction: sidelying 10x hold 10 sec Hip Extension: 10x hold 10 sec Straight Leg Raise: 10x hold 10 sec Gastrocnemius Stretch: 30 sec Hamstring Stretch: 30 sec ea supine, sit, stand ITB Stretch: 30 sec ea supine, stand Quadriceps Stretch: 30 sec Single Knee to Chest: 30 sec Patient Education: Daily habits;Review Home exercise program;Rehabilitation process ASSESSMENT: See IE. Pt demonstrates tight IT band, limited ROM and strength L LE altered gait pattern , stand tolerarance PLAN: See IE. Focus on decreased muscle tension, ROM and strength L LE, trial kinesiotaping Today's Treatment:: Total Tx Time (minutes): 15 Timed Code Tx (minutes): 15 Therapeutic Exercise (Minutes): 15 Other Charges Charge ID Procedure Code Description Qty. Modifiers Digital Photo Printer User Diagnosis [id number] [facility] PT EXERCISE 15 MIN 1 Jenn Brewer PT [id number] [facility] PT INIT EVAL LOW 1 Jenn Brewer PT Signed by: Jenn Brewer PT documented in this encounter Plan of Treatment Scheduled Orders Name Type Priority Associated Diagnoses Orde r Schedule Outpatient Physical Therapy Evaluate and Treat Rehabilitation Routine Osteoarthritis of left knee, unspecified osteoarthritis type 1 Occurrences starting 11/21/2020 until 11/21/2020 documented as of this encounter Visit Diagnoses Diagnosis Osteoarthritis of left knee, unspecified osteoarthritis type documented in this encounter
--- OUTSIDE RECORDS SUMMARY | 2024-03-31 04:10 | XMS_ITS | Encounter Summary ---
Author Organization [facility] Address [address] [place] [address] Care Team Providers Care Circuit Judge Name Role Phone Unavailable Primary Care Provider Unavailabl e Reason for Visit * Reason Comments Elbow Pain LEFT elbow pain Encounter Details Date Type Department Care Team (Late st Contact Info) Description 04/29/2021 2:30 PM HST Office Visit [facility] [phone] [facility] [address] [place] [address] Zbigniew Saavedra MD [phone] [facility] [address] [place] [phone] Chronic elbow pain, left (Primary Dx); Medial epicondylitis of elbow, left Discharge Disposition: D/C Home, Self Care [...] Sign Reading Time Taken Comments Blood Pressure 133/85 04/29/2021 2:57 PM HST Pulse 79 04/29/2021 2:57 PM HST Temperature 36.7 ??C (98.1 ??F) 04/29/2021 2:57 PM HS T Respiratory Rate 18 04/29/2021 2:57 PM HST Oxygen Saturation 96% 04/29/2021 2:57 PM HST Inhaled Oxygen Concentration - - Weight 73.4 kg (161 lb 14.4 oz) 04/29/2021 2:57 PM HST Height 182.9 cm (6') 04/29/2021 2:57 PM HST Body Mass Index 21.96 04/29/2021 2:57 PM HST documented in this encounter Progress Notes * Zbigniew Saavedra MD - 04/29/2021 2:30 PM HST CLINIC NOTE Chief Complaint: Chief Complaint Patient presents with ??? Elbow Pain LEFT elbow pain Subjective: Jens Ayala is a 75 year old male who had concerns including Elbow Pain (LEFT elbow pain).. Patient is a 75-year-old male who presents with chief complaint of chronic left elbow pain. His history is significant for previous right elbow lateral epicondylitis surgery with a reasonable result. Has had persistent progressive pain to the medial elbow without specific injury or overuse. He is especially had symptoms over the last 3 weeks. Any type of grabbing lifting etc. all reproduce this pain. It is well localized. No major swelling. No discoloration. He denies any popping in the elbow especially medially. He has no ulnar nerve symptoms including numbness tingling or any weakness. The lateral elbow is not painful. He is noted no swelling of the joint. No inflammatory history. Range of motion is relatively intact. He is using bilateral tennis elbow straps. Despite this he still has left elbow pain. He presents for this evaluation and treatment recommendations. No Known Allergies Past Medical [...] file Occupational History ??? Not on file Tobacco Use ??? Smoking status: Never Smoker ??? Smokeless tobacco: Never Used Substance and Sexual Activity ??? Alcohol use: No ??? Drug use: No ??? Sexual activity: Not on file Other Topics Concern ??? Not on file Social History Narrative ??? Not on file Social Determinants of Health Financial Resource Strain: ??? Difficulty of Paying Living Expenses: Not on file Food Insecurity: ??? Worried About Running Out of Food in the Last Year: Not on file ??? Ran Out of Food in the Last Year: Not on file Transportation Needs: ??? Lack of Transportation (Medical): Not on file ??? Lack of Transportation (Non-Medical): Not on file Physical Activity: ??? Days of Exercise per Week: Not on file ??? Minutes of Exercise per Session: Not on file Stress: ??? Feeling of Stress : Not on file Social Connections: ??? Frequency of Communication with Friends and Family: Not on file ??? Frequency of Social Gatherings with Friends and Family: Not on file ??? Attends [employer] Services: Not on file ??? Active Member of Clubs or Organizations: Not on file ??? Attends Club or Organization Meetings: Not on file ??? Marital Status: Not on file Intimate Partner Violence: ??? Fear of Current or Ex-Partner: Not on file ??? Emotionally Abused: Not on file ??? Physically Abused: Not on file ??? Sexually Abused: Not on file Housing Stability: ??? Unable to Pay for Housing in the Last Year: Not on file ??? Number of Places Lived in the Last Year: Not on file ??? Unstable Housing in the Last Year: Not on file OB History No obstetric history on file. Outpatient Encounter Medications as of 04/29/2021 Medication Sig Dispense Refill ??? predniSONE 10 mg Oral Tablet TAKE 3 TABS (30 MG) X 4 DAYS THEN 2 TABS (20 MG) X 4 DAYS THEN 1 TAB (10 MG) X 4 DAYS #24 24 Tablet 0 ??? eszopiclone (LUNESTA) 3 mg [...] ??? [DISCONTINUED] predniSONE 10 mg Oral Tablet TAKE 3 TABS (30 MG) X 4 DAYS THEN 2 TABS (20 MG) X 4 DAYS THEN 1 TAB (10 MG) X 4 DAYS #24 (Patient not taking: Reported on 04/29/2021) 24 Tab 0 No facility-administered encounter medications on file as of 04/29/2021. Review of Systems: The patient's complete review of systems was obtained on the initial intake form. Please see the separate document which was reviewed. Pertinent review of systems are included in the history of present illness along with the musculoskeletal complaints. Remaining review of systems listed are unremarkable or unrelated to the patient's present orthopedic complaint. Objective: BP 133/85 (Taken On: Lt upper arm, Patient Position: Sitting, Cuff size: regular) Pulse 79 Temp36.7 ??C (98.1 ??F) (Infrared) Resp 18 Ht 182.9 cm (6') Wt 73.4 kg (161 lb 14.4 oz) SpO2 96% BMI 21.96 kg/m?? Physical Examination: (If abnormal, please describe) GENERAL: Appears well-developed and well-nourished and appears in no acute distress. PSYCH: Patient's mental status and affect are grossly clinically normal. SKIN: Skin overlying the entire left elbow is unremarkable. No bursitis noted. No rashes or plaques. VASCULAR: Excellent radial pulse with brisk cap refill. No dorsal edema. NEURO: There is no intrinsic atrophy in the hand. Gross sensation is intact. Elbow flexion test is negative and there is no ulnar nerve subluxation. Elbow Tinel's negative. ORTHO: He is notably tender over the anterior medial epicondyle. There is no defect or mass in the flexor pronator mass. The elbow is grossly stable. Milk sign negative. The lateral elbow is negativefor tenderness. He has no effusion. Biceps and triceps intact. Testing: X-rays ordered and personally reviewed XRAY - ELBOW 3V (AP, LATERAL & OBLIQUE) Result Date: 04/30/2021 [facility] - Orthopedic Radiology Report Left elbow x-rays negative for acute pathology including fracture or dislocation. There are no advanced degenerative changes. Triceps enthesopathy noted. No effusion or other changes. INDICATION: Chronic left elbow pain. XRAYS: Left elbow x-rays as above. INTERPRETATION: Left elbow x-rays negative for acute pathology including fracture or dislocation. There are no advanced degenerative changes. Triceps enthesopathy noted. No effusion or other changes. Assessment: 1. Chronic elbow pain, left 2. Medial epicondylitis of elbow, left Evolving chronic left elbow pain due to medial epicondylitis. No evidence of ulnar nerve involvement. Plan: X-rays and clinical findings were reviewed. We discussed the pathoanatomy. We emphasized initial conservative measures. I made recommendations regarding tennis elbow supports I have found helpful. We emphasized heat and stretching especially before activity or exercise as well as careful icing afterward but to avoid the ulnar nerve area. NSAIDs may be helpful as medically allowed. We discussed the potential for cortisone injection for more refractory symptoms. He understands ultimately MRI and possibly surgical considerations may be later for more refractory symptoms. We will initiate our conservative measure approach with custom prednisone along with the other above-noted recommendations. If he is not better the next 4 weeks may consider advanced imaging or possibly cortisone injection. No orders of the defined types were placed in this encounter. Follow-up and Disposition ?? Return if symptoms worsen or fail to improve. Zbigniew Saavedra MD documented in this encounter Plan of Treatment Not on file documented as of this encounter Visit Diagnoses Diagnosis Chronic elbow pain, left- Primary Medial epicondylitis of elbow, left documented in this encounter
--- OUTSIDE RECORDS SUMMARY | 2024-03-31 04:10 | XMS_ITS | Encounter Summary ---
Author Organization [facility] Address [address] [place] [address] Care Team Providers Care Social Media Senior Associate Name Role Phone Unavailable Primary Care Provider Unavailabl e Reason for Visit * Auth/Cert Specialty Diagnoses / Procedures Referred By Tram griffin Referred To Contact Referral ID Status Reason Start Date Expiration Date Visits Re quested Visits Authorized [id number] 1 1 Encounter Details Date Type Department Care Team (Late st Contact Info) Description 02/23/2020 10:21 AM HST - 02/23/2020 11:59 PM T Hospital Encounter [facility] Outpatient Rehab [id number] [facility] [place] [place] [address] Referring, Doctor, DO NOT change name. DO NOT not update address. If you do not know how to create a new referring physician, contact your supervisor wet room. Jenn Brewer, PT Discharge Disposition: Still A [...] as of this encounter Progress Notes * Jenn Brewer, PT - 02/23/2020 10:30 AM HST OUTPATIENT PHYSICAL THERAPY TREATMENT NOTE Date of Service: 02/23/2020 Visit #: 05/10 Treatment Start Time: 1030 1:1 Direct Physical Therapist Contact: Yes SUBJECTIVE L knee varying ability, find that jogging aggravates it so back to walking Pain Scale: 1-2/10 OBJECTIVE Treatment: Manual Therapy: STM L knee musculature to decrease pain and tension, focus on posterior region, foam roll to IT band. Therapeutic Exercises Exercise #1: recumbant bike 6 min Exercise #2: tandem stand aeromat 1 min, walk aeromat 10x 6 ft fwd, bk Exercise #3: BOSU inverted: 1 min, shallow squat 10x Exercise #4: side step with biodex 3 pl resisit, 10x to L and 10x to R Exercise #5: single leg stand with ball toss on wall 3x 1 min Exercise #6: z step 10x with UE assist for balance Exercise #7: cone tap to 12 inch height 10x Exercise #8: crossover step front, back , combo 10x 10ft ea Exercise #9: bridge feet on ball 10x. hold 5 sec 10x Hamstring Curl: prone 10x, stand 10x, trial bridge feet on ball: increased knee pain Heel Raise: 20x standing on aeromat Hip Abduction: cybex 8 pl 2x 10 Hip Adduction: cybex 8 pl 2x 10 Step Down: 6 in 10x Step Up: 6 in 20x Tilt Board: 10x TKE: green tband 2x 10 Gastrocnemius Stretch: 2x 30 sec Hamstring Stretch: 30 sec supine with strap Plantar Fascia Stretch: 2x 30 sec Patient Education: Daily habits;Rehabilitation process;Review Home exercise program;Home exercise program handout ASSESSMENT Pt continues to have tight IT band. He gets pain flare up with hamstring challenge such as hamstring curl on ball but ok with hamstring stool walking. His ROM in WNL, gait with equal step and stride length, no antalgia PLAN Focus on L knee strength, ROM, gait, single leg balance Today's Treatment Total Tx Time (minutes): 55 Timed Code Tx (minutes): 55 Therapeutic Exercise (Minutes): 45 Manual Therapy (Minutes): 10 Other Charges Charge ID Procedure Code Description Qty. Modifiers Inletter User Diagnosis [id number] [facility] PT EXERCISE 15 MIN 3 Jenn Brewer, PT [id number] [facility] PT MANUAL THERAPY 15 MIN 1 Jenn Brewer, PT Signed by: Jenn Brewer PT documented in this encounter Plan of Treatment Not on file documented as of this encounter Visit Diagnoses Not on filedocumented in this encounter
--- OUTSIDE RECORDS SUMMARY | 2024-03-31 04:10 | XMS_ITS | Encounter Summary ---
Author Organization The [facility] Address [address] [place] [address] Care Team Providers Care Rn Correctional Name Role Phone Unavailable Primary Care Provider Unavailabl e Reason for Visit * Referral (Routine) - Closed Specialty Diagnoses / Procedures Referred By Tram griffin Referred To Contact Radiology Procedures MRI KNEE WITHOUT IV CONTRAST Mi Mri [phone] [facility] [place] [address] Referral ID Status Reason Start Date Expiration Date Visits Re quested Visits Authorized [id number] Closed 1 1 Encounter Details Date Type Department Care Team (Late st Contact Info) Description 01/06/2020 1:30 PM HST - 01/06/2020 11:59 PM T Hospital Encounter [facility] MRI [id number] [facility] [place] [address] Joshua Patricio MD [phone] [facility] [address] [place] [phone] Discharge Disposition: D/C Home, Self Care Social [...] MRI - KNEE WITHOUT IV CONTRAST Routine 01/06/2020 2:28 PM HST Left knee pain, unspecified chronicity documented in this encounter Results * MRI [...]
--- OUTSIDE RECORDS SUMMARY | 2024-03-31 04:10 | XMS_ITS | Encounter Summary ---
Author Organization [facility] Address [address] [place] [address] Care Team Providers Care Apparel Manufacture Instructor Name Role Phone Unavailable Primary Care Provider Unavailabl e Encounter Details Date Type Department Care Team (Late st Contact Info) Description 04/26/2021 Orders Only [facility] Orth[facility] Clinic [phone] [facility] [address] [facility], [place] [address] Nelda Fernandes Pain (Primary Dx); Left elbow pain Social History Tobacco Use Types Packs/Day Years [...] other changes. Narrative 04/30/2021 1:20 PM HST [facility] - Orthopedic Radiology Report Zbigniew Saavedra MD XRAY-ORDERABLE documented in this encounter Visit Diagnoses Diagnosis Pain- Primary Generalized pain Left elbow pain Pain in joint, upper arm Left elbow pain Pain in joint, upper arm documented in this encounter
--- OUTSIDE RECORDS SUMMARY | 2024-03-31 04:10 | XMS_ITS | Encounter Summary ---
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 Name Role Phone Unavailable Primary Care Provider Unavailabl e Reason for Referral * Referral (Routine) - Closed Specialty Diagnoses / Procedures Referred By Tram griffin Referred To Contact Diagnoses Chronic pain of left knee Injury while running Procedures Outpatient Physical Therapy Evaluate and Treat Zbigniew Saavedra MD [phone] [facility] [address] [address] [place] [address] Wi Op Physical Therapy [phone] [facility] [place] [address] Referral ID Status Reason Start Date Expiration Date Visits Re quested Visits Authorized [id number] Closed 01/12/2020 10 10 Reason for Visit * Auth/Cert Specialty Diagnoses / Procedures Referred By Tram griffin Referred To Contact Referral ID Status Reason Start Date Expiration Date Visits Re quested Visits Authorized [id number] 1 1 Encounter Details Date Type Department Care Team (Late st Contact Info) Description 01/13/2020 10:30 AM HST - 01/13/2020 11:59 PM HST Hospital Encounter [facility] Outpatient Rehab [phone] [place], [place] [phone] Zbigniew Saavedra MD [phone] [facility] Kathryn [facility] [place] [address] Jenn Brewer, PT Discharge Disposition: Still A [...] mouth at bedtime. predniSONE 10 mg Oral TabletIndications:Chroni c pain of left knee,Injury while running Take 3 tabs (30mg) by mouth X 4days, then take 2 tabs (20mg) by mouth X 4days, then take 1 tabs (10mg) by mouth X 4days 24 Tab 01/11/2020 02/01/2020 documented as of this encounter Progress Notes * Jenn Brewer, PT - 01/13/2020 10:30 AM HST OUTPATIENT PHYSICAL THERAPY TREATMENT NOTE Date of Service: 01/13/2020 Visit #: 10/10 Treatment Start Time: 1030 1:1 Direct Physical Therapist Contact: Yes SUBJECTIVE MRI results showing ligaments intact, pt states MD brings up possiblity of low back or hip contribution to pain. 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 The knee is uncomfortable with attempt at full extension Pain Scale: 2/10 OBJECTIVE Treatment: Manual Therapy: STM L knee musculature to decrease pain and tension, focus on posterior region Therapeutic Exercises Exercise #1: bike recumbant 5 min Heel Raise: 20x standing Hip Abduction: sidelying 10x Hip Adduction: supine with ball 10x 10 sec Straight Leg Raise: 10x Step Down: 4 in 10x Step Up: 4 in 20x TKE: orange tband 2x 10 Knee Extension: 20 sec x 3 with roll under ankle Gastrocnemius Stretch: 2x 30 sec Hamstring Stretch: 3x 30 sec supine with strap ITB Stretch: 2x 30 sec supine with strap and standing Plantar Fascia Stretch: 2x 30 sec Soleus Stretch: 2x 30 sec Patient Education: Daily habits;Review Home exercise program;Home exercise program handout ASSESSMENT Pt continues to demonstrate decreased strength and ROM L knee, mild pain report improved post therapy. He tolerates ther ex with no increased pain report PLAN Focus on L knee strength, ROM, gait, continue to assess contribution of potential low back and hip to knee pain Today's Treatment Total Tx Time (minutes): 60 Timed Code Tx (minutes): 60 Therapeutic Exercise (Minutes): 50 Manual Therapy (Minutes): 10 Other Charges Charge ID Procedure Code Description Qty. Modifiers Marble Mason User Diagnosis [id number] [facility] PT EXERCISE 15 MIN 3 Jenn Brewer PT [id number] [facility] PT MANUAL THERAPY 15 MIN 1 Jenn Brewer PT Signed by: Jenn Brewer PT documented in this encounter Plan of Treatment Scheduled Orders Name Type Priority Associated Diagnoses Orde r Schedule Outpatient Physical Therapy Evaluate and Treat Rehabilitation Routine Chronic pain of left knee Injury while running 1 Occurrences starting 01/13/2020 until 01/13/2020 documented as of this encounter Visit Diagnoses Diagnosis Chronic pain of left knee Pain in joint, lower leg Injury while running documented in this encounter
--- OUTSIDE RECORDS SUMMARY | 2024-03-31 04:10 | XMS_ITS | Encounter Summary ---
Author Organization [facility] Address [address] [place] [address] Care Team Providers Care Board Filler Name Role Phone Unavailable Primary Care Provider Unavailabl e Reason for Visit * Auth/Cert Specialty Diagnoses / Procedures Referred By Tram griffin Referred To Contact Referral ID Status Reason Start Date Expiration Date Visits Re quested Visits Authorized [id number] 1 1 Encounter Details Date Type Department Care Team (Late st Contact Info) Description 02/14/2020 12:18 PM HST - 02/14/2020 11:59 PM HST Hospital Encounter [facility] Outpatient Rehab [id number] [facility] [place] [address] Referring, Doctor, DO NOT change name. DO NOT not update address. If you do not know how to create a new referring physician, contact your melter supervisor oxygen furnace. Jenn Brewer, PT Discharge Disposition: Still A [...] Progress Notes * Jenn Brewer, PT - 02/14/2020 12:30 PM HST OUTPATIENT PHYSICAL THERAPY TREATMENT NOTE Date of Service: 02/14/2020 Visit #: 04/09 Treatment Start Time: 1230 1:1 Direct Physical Therapist Contact: Yes SUBJECTIVE L knee improving, a little pain but able to jog a bit on Thursday with no increased pain Pain Scale: 1-2/10 OBJECTIVE Treatment: Manual Therapy: STM L knee musculature to decrease pain and tension, focus on posterior region, foam roll to IT band. Therapeutic Exercises Exercise #1: recumbant bike 5 min Exercise #2: tandem stand aeromat 1 min, walk aeromat 10x 6 ft fwd, bk Exercise #3: BOSU inverted: 1 min, shallow squat 10x with CGA Exercise #4: side step with biodex 3 pl resisit, 10x to L and 10x to R Exercise #5: single leg stand with ball toss on wall 3x 1 min Exercise #6: z step 10x with UE assist for balance Exercise #7: cone tap to 12 inch height 10x Exercise #8: crossover step front, back , combo 10x 10ft ea Hamstring Curl: prone 10x, with 4 lb wt 10x Heel Raise: 20x standing on aeromat Hip Abduction: cybex 8 pl 2x 10 Hip Adduction: cybex 8 pl 2x 10 Step Down: 6 in 10x Step Up: 6 in 20x Tilt Board: 10x TKE: orange tband 2x 10 Gastrocnemius Stretch: 2x 30 sec Hamstring Stretch: 30 sec supine with strap Plantar Fascia Stretch: 2x 30 sec Patient Education: Daily habits;Rehabilitation process ASSESSMENT Pt continues to have tight IT band L improved post therapy, low pain levels with increased functional ability. PLAN Focus on L knee strength, ROM, gait, single leg balance Today's Treatment Total Tx Time (minutes): 55 Timed Code Tx (minutes): 55 Therapeutic Exercise (Minutes): 45 Manual Therapy (Minutes): 10 Other Charges Charge ID Procedure Code Description Qty. Modifiers Direct Service Provider User Diagnosis [id number] [facility] PT EXERCISE 15 MIN 3 Jenn Brewer PT [id number] [facility] PT MANUAL THERAPY 15 MIN 1 Jenn Brewer PT Signed by: Jenn Brewer PT documented in this encounter Plan of Treatment Not on file documented as of this encounter Visit Diagnoses Not on filedocumented in this encounter
--- OUTSIDE RECORDS SUMMARY | 2024-03-31 04:10 | XMS_ITS | Encounter Summary ---
Author Organization [facility] Address [address] [place] [address] Care Team Providers Care Film Sorter Name Role Phone Unavailable Primary Care Provider Unavailabl e Reason for Visit * Reason Comments Elbow Pain Left elbow pain; now experiencing pain in right elbow Encounter Details Date Type Department Care Team (Late st Contact Info) Description 09/18/2021 8:00 AM HST Office Visit [facility] [phone] [facility] [address] [place] [address] Zbigniew Saavedra MD [phone] [facility] [address] [place] [phone] Chronic elbow pain, left (Primary Dx); Medial epicondylitis of elbow, left; Chronic elbow pain, right Discharge Disposition: D/C Home, Self Care Social [...] have Coronavirus / COVID-19? No / Unsure 09/18/2021 7:49 AM HST documented as of this encounter Last Filed Vital Signs Vital Sign Reading Time Taken Comments Blood Pressure 122/91 09/18/2021 7:58 AM HST Pulse 77 09/18/2021 7:58 AM HST Temperature 36.5 ??C (97.7 ??F) 09/18/2021 7:58 AM HS T Respiratory Rate 18 09/18/2021 7:58 AM HST Oxygen Saturation 99% 09/18/2021 7:58 AM HST Inhaled Oxygen Concentration - - Weight 75.3 kg (165 lb 14.4 oz) 09/18/2021 7:58 AM HST Height 182.9 cm (6') 09/18/2021 7:58 AM HST Body Mass Index 22.5 09/18/2021 7:58 AM HST documented in this encounter Progress Notes * Zbigniew Saavedra MD - 09/18/2021 8:00 AM HST CLINIC NOTE Chief Complaint: Chief Complaint Patient presents with ??? Elbow Pain Left elbow pain; now experiencing pain in right elbow Subjective: Jens Ayala is a 76 year old male who had concerns including Elbow Pain (Left elbow pain; now experiencing pain in right elbow).. Patient presents for evaluation of bilateral elbow pain. Originallyscheduled for evaluation of left elbow pain his right elbow has become more problematic. It should be recalled that his right elbow had previous right lateral epicondylitis surgery done elsewhere. Hedid have a reasonable result. Without recent injury or isolated overuse episode he has had some recurrent intermittent symptoms. Today has been a good day. With regard to the left elbow the pain remains medial. Is worse with activity. He has pain at night as well as in the morning. He has been using a tennis elbow type strap. He denies any numbness tingling or any suggestion of ulnar nerve symptoms. No edema or circulatory change. No lateral elbow pain. With regard to the right elbow the pain is isolated to the lateral epicondyle region. No swelling of the joint. Most symptoms are activity aggravated. He has difficulty with gripping. He presents for evaluation of both elbows. No Known Allergies Past Medical History: Diagnosis [...] Social Determinants of Health Financial Resource Strain: Not on file Food Insecurity: Not on file Transportation Needs: Not on file Physical Activity: Not on file Stress: Not on file Social Connections: Not on file Intimate Partner Violence: Not on file Housing Stability: Not on file OB History No obstetric history on file. Outpatient Encounter Medications as of 09/18/2021 Medication Sig Dispense Refill ??? predniSONE 10 [...] every 8 hours as needed for Pain. Facility-Administered Encounter Medications as of 09/18/2021 Medication Dose Route Frequency Provider Last Rate Last Admin ??? triamcinolone acetonide (KENALOG) Inj 40 mg 40 mg Intramuscular Once Zbigniew Saavedra MD ??? lidocaine hcl (local anesth.) (Xylocaine) 1 % Inj 5 mL 5 mL Intramuscular Once Zbigniew Saavedra MD Review of Systems: Patient's review of systems was updated. There have been no significant changes including any significant hospitalizations or illnesses. No new significant symptomatology. Pertinent negatives are also included above. No constitutional type symptoms. Otherwise review of systems unremarkable for any changes. Objective: BP (!) 122/91 (Taken On: Lt upper arm, Patient Position: Sitting, Cuff size: regular) Pulse 77 Temp 36.5 ??C (97.7 ??F) (Infrared) Resp 18 Ht 182.9 cm (6') Wt 75.3 kg (165 lb 14.4 oz) SpO2 99% BMI 22.50 kg/m?? Physical Examination: (If abnormal, please describe) GENERAL: Patient is alert and does not appear in any acute or significant distress. SKIN: Skin overlying both elbows is benign. The previous right elbow incision is also benign. VASCULAR: Excellent radial pulse no distal edema. Brisk capillary refill. NEURO: No intrinsic ulnar atrophy in the left upper extremity. Good abduction and abduction of the digits. Gross sensation intact. Elbow flexion and elbow Tinel's are negative. ORTHO: Pertinent findings of the left elbow showed no effusion or soft tissue swelling. He is tender over the origin of the flexor pronator mass. No tenderness in the ulnar collateral ligament region. Elbow is grossly stable. Biceps and triceps intact. No lateral elbow tenderness. Flexibility testing is painful. With regard to the right elbow his incision is benign. There is no soft tissue swelling or effusion. There is tenderness over the lateral epicondyle but relatively mild today. Testing: No further testing was initiated or performed. Assessment: 1. Chronic elbow pain, left 2. Medial epicondylitis of elbow, left 3. Chronic elbow pain, right Chronic left elbow pain due to medial epicondylitis without ulnar nerve involvement. The right elbow has some recurrent lateral epicondylitis symptoms status post previous surgery with unknown technique. Plan: At this point we advocated our global conservative approach. This advocated flexor stretchingon the left side and extensor stretching on the right. Tennis elbow straps with activity. He shouldfocus more on heat and may consider nighttime splinting especially on the left side. We discussed use of topical anti-inflammatories as a potentially safer approach. We discussed potential cortisone injections both from a diagnostic and therapeutic standpoint. We did discuss activity and exercise related issues as it pertains to both of these problems. As a separate and distinct component of today's evaluation we agreed to proceed with a left medial epicondyle cortisone injection for diagnostic and therapeutic purposes. Should this fail I would request an MRI to better define the extent of the pathology. As I did not originally perform his surgery of the right elbow I am not exactly sure what techniquewas employed. May consider cortisone injection before further work-up. Initially I discussed the potential risks, benefits and side effects of cortisone injections. Discussion included, but was certainly not limited to, the potential for infection, injection site bruising, elevation in blood sugars and other unexpected complications. At this point it was then proceeded with the left medial epicondyle injection. The patient's left medial epicondyle was prepared with a combination of Betadine and alcohol, anesthetized with 2 cc of 1% lidocaine and was injected with 40 mg of Kenalog. The procedure was well- tolerated and no complications occurred. Patient will notify the office should any side effects or concerns develop. No orders of the defined types were placed in this encounter. Follow-up and Disposition ?? Return if symptoms worsen or fail to improve. Zbigniew Saavedra MD documented in this encounter Plan of Treatment Not on file documented as of this encounter Visit Diagnoses Diagnosis Chronic elbow pain, left- Primary Medial epicondylitis of elbow, left Chronic elbow pain, right documented in this encounter Administered Medications Inactive Administered Medications - up to 3 most recent administrations Medication Order MAR Action Action Date Dose Rate Site lidocaine hcl (local anesth.) (Xylocaine) 1 % Inj 5 mL Intramuscular, ONCE, 1 dose, On Thu09/18/21 at 0949, Routine Given by Physician 09/18/2021 9:51 AM HST 5 mL Left Forearm triamcinolone acetonide (KENALOG) Inj 40 mg Intramuscular, ONCE, 1 dose, On Thu09/18/21 at 0949, Routine Given by Physician 09/18/2021 9:52 AM HST 40 mg Left Forearm documented in this encounter
--- OUTSIDE RECORDS SUMMARY | 2024-03-31 04:10 | XMS_ITS | Encounter Summary ---
Author Organization The [facility] Address [address] [place] [address] Care Team Providers Care Crusher Wet Ground Mica Name Role Phone Unavailable Primary Care Provider Unavailabl e Reason for Visit * Reason Comments Retention, Urine states needs a paulson . Recent prostate infection taking Levaquin for same. * Auth/Cert Specialty Diagnoses / Procedures Referred By Tram griffin Referred To Contact Diagnoses URINE RETENTION Referral ID Status Reason Start Date Expiration Date Visits Re quested Visits Authorized [id number] 1 1 Encounter Details Date Type Department Care Team (Late st Contact Info) Description 05/12/2016 12:43 PM HST - 05/12/2016 3:33 PM HST Emergency [facility] Emergency Dept [phone] [facility] [place] [address] Chester Child MD Discharge Disposition: D/C Home, Self Care Social History Tobacco Use Types Packs/Day Years Used Date Smoking Tobacco: Never Alcohol Use Standard Drinks/Week Comments [...] Sign Reading Time Taken Comments Blood Pressure 110/74 05/12/2016 3:24 PM HST Pulse 96 05/12/2016 3:24 PM HST Temperature 37 ??C (98.6 ??F) 05/12/2016 3:24 PM HST Respiratory Rate 16 05/12/2016 3:24 PM HST Oxygen Saturation 98% 05/12/2016 3:24 PM HST Inhaled Oxygen Concentration - - Weight 74.8 kg (165 lb) 05/12/2016 11:02 AM HST Height 182.9 cm (6') 05/12/2016 11:02 AM HST Body Mass Index 22.38 05/12/2016 11:02 AM HST documented in this encounter Discharge Instructions * Discharge Instructions* Chester Child MD - 05/12/2016 3:16 PM HST Dysuria WHAT YOU NEED TO KNOW: Dysuria is difficulty urinating, or pain, burning, or discomfort with urination. Dysuria is usuallya symptom of another problem. DISCHARGE INSTRUCTIONS: Return to the emergency department if: ?? You have severe back, side, or abdominal pain. ?? You have fever and shaking chills. ?? You vomit several times in a row. Contact your healthcare provider if: ?? Your symptoms do not go away, even after treatment. ?? You have questions or concerns about your condition or care. Medicines: ?? Medicines may be given to help treat a bacterial infection or help decrease bladder spasms. ?? Take your medicine as directed. Call your healthcare provider if you think your medicine is not helping or if you have side effects. Tell him if you are allergic to any medicine. Keep a list of the medicines, vitamins, and herbs you take. Include the amounts, and when and why you take them. Bring the list or the pill bottles to follow-up visits. Carry your medicine list with you in case of an emergency. Follow up with your healthcare provider as directed: Your healthcare provider may also refer you toa urologist or scalder to have additional testing. Write down your questions so you remember to ask them during your visits. Manage your dysuria: ?? Drink more liquids. Liquids help flush out bacteria that may be causing an infection. Ask your healthcare provider how much liquid to drink each day and which liquids are best for you. ?? Take sitz baths as directed. Fill a bathtub with 4 to 6 inches of warm water. You may also use asitz bath velasco that fits over a toilet. Sit in the sitz bath for 20 minutes. Do this 2 to 3 times a day, or as directed. The warm water can help decrease pain and swelling. ?? 2016 [employer]. Information is for End User's use only and may not be sold, redistributed or otherwise used for commercial purposes. All illustrations and images included in CareNotes?? are the copyrighted property of [employer], [employer]. or [employer]. The above information is an certified nurse aide only. It is not intended as medical advice for individual conditions or treatments. Talk to your doctor, nurse or pharmacist before following any medical regimen to see if it is safe and effective for you. documented in this encounter Medications at Time of Discharge Medication Sig Dispensed Refills Start Date End Date ATORVASTATIN CALCIUM (ATORVASTATIN PO) Take by mouth. amitriptyline 100 mg Oral Tablet Take 100 mg by mouth at bedtime. documented as of this encounter ED Notes * Jl Gordillo - 05/12/2016 3:33 PM HST Jens Ayala was discharged from the Emergency Department ambulating, accompanied by relative. Pt/guardian verbalized understanding of all discharge instructions. Jens Ayala received: prescription given to patient/family. Patient's condition on discharge:pain level 0=no pain, awake, alert, oriented x 3 and walks with steady gait. BP 110/74 mmHg Pulse 96 Temp(Src) 37 ??C (98.6 ??F) (Oral) Resp 16 Ht 182.9 cm (6') Wt 74.844 kg (165 lb) BMI 22.37 kg/m2 SpO2 98% * Jl Gordillo - 05/12/2016 3:25 PM HST Urinary catheter collection bag changed to leg bag. Pt instructed in its use and care. Pt returned demonstration. * Davin Riggs RN - 05/12/2016 1:17 PM HST #14 Vietnamese paulson inserted. * Chester Child MD - 05/12/2016 12:48 PM HST 70 year old male [facility] [id number] ED Date of Service: 05/12/2016 Arrival time:10:42 AM Arrival mode: CC: Chief Complaint Patient presents with ??? Retention, Urine states needs a paulson. Recent prostate infection taking Levaquin for same. HPI: HPI : The patient is a 70-year-old male with history of benign prostatic hypertrophy who had a recent prostate vaporization procedure by his urologist Dr. Fernandez on [facility]. He presents here today with report of onset of urinary hesitancy, frequency and dysuria since Thursday last. On Thursday of lastweek 5-6 days ago he came to the emergency department where he reports postvoid residual urine volume was 800 mL. He has been taking Levaquin for a urinary tract infection. He reports that at home hehas been having measured postvoid residuals of approximately 300 mL via self-catheterization over the past several days. He denies any other acute symptomatology at this time. History Medical History: Past Medical History Diagnosis Date ??? Sleep disorder ??? Restless leg syndrome ??? Pure hypercholesterolemia ??? Kidney disease BPH No LMP for male patient. , unknown, Estimated Date of Delivery: None noted. There is no immunization history on file for this patient. Surgical History: Past Surgical History Procedure Laterality Date ??? Hx kidney/bladder/prostate surgery prostate surgery ??? Hx orthopedic surgery Prior to Admission Medications Prescriptions Last Dose Informant Patient Reported? Taking? ATORVASTATIN CALCIUM (ATORVASTATIN PO) Yes Yes Sig: Take by mouth. HYDROcodone/acetaminophen 7.5-325 mg Oral Tablet Yes Yes Sig: Take 1 Tab by mouth every 8 hours as needed for Pain. METHYLPHENIDATE HCL (METHYLPHENIDATE PO) Yes Yes Sig: Take by mouth. amitriptyline 100 mg Oral Tablet Yes Yes Sig: Take 100 mg by mouth at bedtime. escitalopram oxalate 20 mg Oral Tablet Yes Yes Sig: Take 20 mg by mouth every morning. eszopiclone (LUNESTA) 3 mg Oral Tablet Yes No levofloxacin (LEVAQUIN) 500 mg Oral Tablet No Yes Sig: Take 1 Tab by mouth every 24 hours. tamsulosin 0.4 mg Oral Capsule, Sustained Release 24HR Yes Yes Sig: Take 0.4 mg by mouth at bedtime. Facility-Administered Medications: None Allergies: Review of patient's allergies indicates no known allergies. Family History: History reviewed. No pertinent family history. Social History: Social History Substance Use Topics ??? Smoking status: Never Smoker ??? Smokeless tobacco: Not on file ??? Alcohol Use: No Drug Use: No Review of Systems Constitutional: Negative for fever and chills. HENT: Negative for congestion, ear discharge, rhinorrhea, sore throat, tinnitus, trouble swallowingand voice change. Eyes: Negative for pain, discharge and visual disturbance. Respiratory: Negative for cough and shortness of breath. Cardiovascular: Negative for chest pain and palpitations. Gastrointestinal: Negative for nausea, vomiting, diarrhea and blood in stool. Genitourinary: Positive for dysuria, urgency and frequency. Negative for hematuria. Musculoskeletal: Negative for myalgias and arthralgias. Skin: Negative for rash. Neurological: Negative for weakness, numbness and headaches. Hematological: Does not bruise/bleed easily. Psychiatric/Behavioral: Negative for dysphoric mood. The patient is not nervous/anxious. Initial vital signs: BP: (!) 144/106 mmHg, Pulse: 99, Respiratory Rate (BPM): 16, Temp: 36.5 ??C (97.7 ??F), SpO2 (%): 97 %, Room Air/Liter Flow (LPM): Room air Most recent vital signs: BP: 110/74 mmHg, Pulse: 96, Respiratory Rate (BPM): 16, Temp: 37 ??C (98.6 ??F), SpO2 (%): 98 %, Room Air/Liter Flow (LPM): Room air Physical Exam Constitutional: He is oriented to person, place, and time. He appears well- developed and well-nourished. No distress. HENT: Head: Normocephalic and atraumatic. Mouth/Throat: Oropharynx is clear and moist. No oropharyngeal exudate. Eyes: EOM are normal. No scleral icterus. Neck: Normal range of motion. Neck supple. No JVD present. No tracheal deviation present. No thyromegaly present. Cardiovascular: Normal rate and regular rhythm. No murmur heard. Pulmonary/Chest: Effort normal and breath sounds normal. No respiratory distress. He has no wheezes. He has no rales. Abdominal: Soft. He exhibits no mass. There is no tenderness. There is no rebound and no guarding. Musculoskeletal: Normal range of motion. He exhibits no edema or tenderness. Neurological: He is alert and oriented to person, place, and time. No cranial nerve deficit. Skin: Skin is warm and dry. No rash noted. He is not diaphoretic. Psychiatric: He has a normal mood and affect. His behavior is normal. Judgment and thought content normal. Nursing note and vitals reviewed. Procedures: Procedures Data Reviewed Consults: None EKG: No orders of the defined types were placed in this encounter. EKG Interpretation: No EKG ordered. Imaging: None Emergency Physician interpretation: None No results found for this visit on 05/12/16. Lab: Results for orders placed or performed during the hospital encounter of 05/12/16 1. CBC W/ DIFF Result Value White Blood Count 6.45 Red Blood Cell Count 4.74 Hemoglobin 14.8 Hematocrit 43.0 MCV 90.7 MCH 31.2 MCHC 34.4 Neutrophil 63.2 Lymphocyte 28.5 Monocyte 6.0 Eosinophil 1.2 Basophil 0.9 Nucleated RBC 0.0 Platelet Count 209 Imm Granulocyte 0.2 Abs Neutrophils 4.07 Abs Imm Granulo 0.01 RDW 13.7 2. COMPREHENSIVE METABOLIC PROFILE Result Value Glucose 116 (H) BUN 20 Creatinine 1.3 GFR Calc if nonAfrican Am 55 (L) GFR Calc if Am >60 Sodium 142 Potassium 4.6 Chloride 102 CO2 25 Anion Gap 20 Calcium 9.3 SGOT (AST) 22 SGPT (ALT) 13 Alkaline Phosphatase 121 Bilirubin, Total 0.3 Total Protein 7.2 Albumin 4.3 3. LIPASE Result Value Lipase 10 (L) 4. URINALYSIS, COMPLETE, REFLEX TO C & S Result Value Color YELLOW Appearance HAZY Specific Blue >1.030 (H) pH 5.5 Protein 100 (H) Glucose NEG Ketones NEG Urobilinogen 0.2 Bilirubin NEG Blood LARGE (H) Leukocyte Esterase MOD (H) Nitrite NEG WBC >100 (H) RBC 51-100 (H) Bacteria MANY Urine Culture/Sensitivity REFER TO THE MICROBIOLOGY SECTION OF REPORT 5. URINE CULTURE Result Value Collection Method CLEAN CATCH Report Status FINAL Urine Culture Details RESULT All Medications ordered during this Encounter: Medications - No data to display ED Course/Medical Decision Making: MDM Patient presents to the emergency department with above symptoms, concerns and physical exam findings. Differential diagnostic considerations include life- threatening an emergency and other conditions such as but not limited to acute renal failure, urinary retention secondary to urinary tract obstruction, partially treated urinary tract infection with poor response to Levaquin, and others. Postvoid residual today was only 200 mL an does not meet criteria for urinary retention. I contacted his urologist Dr. Fernandez. He and I discussed the patient's case and he recommended that the patient'sFoley catheter be maintained until he could see him in clinic. We also discussed addition of Bactrim DS 1 tablet daily for prophylactic reasons. I discussed this with the patient and he was in agreement with that plan of care. The patient was discharged in stable condition. Critical Care Time: No critical care was provided. Clinical Impression: Dysuria (primary encounter diagnosis) Disposition: Discharge Procedures performed during this ED visit: None Condition on Discharge: Stable No discharge procedures on file. Discharge Medication List as of 05/12/2016 3:18 PM START taking these medications Details trimethoprim/sulfamethoxazole (BACTRIM DS) 160/800 mg Oral Tablet Take 1 Tab by mouth every 24 hours., Disp-5 Tab, R-0, Normal Follow up provider: Sumit Fernandez MD [facility] [phone] In 4 days CHESTER CHILD Physician 05/17/2016 10:04 documented in this encounter Plan of Treatment Not on file documented as of this encounter Procedures Procedure Name Priority Date/Time Associated Diagnosis Comments URINALYSIS, COMPLETE, REFLEX TO C & S STAT 05/12/2016 1:26 PM HST URINE CULTURE Routine 05/12/2016 1:26 PM HST COMPREHENSIVE METABOLIC PROFILE STAT 05/12/2016 1:25 PM HST CBC W/ DIFF STAT 05/12/2016 1:25 PM HST LIPASE STAT 05/12/2016 1:25 PM HST documented in this encounter Results * URINE CULTURE (05/12/2016 1:26 PM HST) Collection Method CLEAN CATCH [facility] Report Status FINAL [facility] Urine Culture Details RESULT [facility] Comment:NO GROWTH AT 2 DAYS 05/12/2016 1:26 PM HST 05/12/2016 1:52 PM HST Chester Child MD MICROBIOLOGY-ORDERAB LE Performing Organization Address [facility] Co de Phone Number LAB [facility] [phone] [place] [address] [facility] [phone] [place] [address] * (ABNORMAL) UA, Complete, Reflex to C & S (05/12/2016 1:26 PM HST) Pathologist [facility] [place] Color YELLOW DLS [facility] Appearance HAZY DLS [facility] Specific Blue >1.030(H) 1.005 - 1.030 DLS [facility] pH 5.5 5 - 7.5 DLS [facility] Protein 100(H) NEGATIVE mg/dl [facility] Glucose NEG NEGATIVE [facility] Ketones NEG NEGATIVE [facility] Urobilinogen 0.2 0.1 - 1.0 mg/dl [facility] Bilirubin NEG NEGATIVE [facility] Blood LARGE(H) NEGATIVE [facility] Leukocyte Esterase MOD(H) NEGATIVE [facility] Nitrite NEG NEGATIVE [facility] WBC >100(H) 0-5 WBC/hpf hpf [facility] RBC 51-100(H) 0-2 RBC/hpf hpf [facility] Bacteria MANY NONE DLS [facility] Urine Culture/Sensiti vity REFER TO THE MICROBIOLOGY SECTION OF REPORT [facility] Urine (Urine, Clean Catch) 05/12/2016 1:26 PM HST 05/12/2016 2:23 PM HST Chester Child MD URINALYSIS-ORDERABLE Performing Organization Address [facility]/ZIP Co de Phone Number LAB [facility] [phone] [place] [address] [facility] [phone] [facility] [place] [address] * (ABNORMAL) Lipase (05/12/2016 1:25 PM HST) Lipase 10(L) 13 - 60 U/L [facility] 05/12/2016 1:25 PM HST 05/12/2016 1:31 PM HST Chester Child MD CHEMISTRY-ORDERABLE LAB [facility] [id number] [facility] [place] [address] [facility] [phone] [facility] [place] [address] * (ABNORMAL) Comprehensive Metabolic Panel (CMP) (05/12/2016 1:25 PM HST) Glucose 116(H) 70 - 99 mg/dL [facility] BUN 20 6 - 23 mg/dL [facility] Creatinine 1.3 0.6 - 1.4 mg/dL [facility] eGFR, MDRD, non- Am. 55(L) mL/min/1.7 3m(2) [facility] eGFR, MDRD, Am. >60 mL/min/1.7 3m(2) [facility] Comment: Reference Range of GFR for ages 60-69 is = or > 85 mL/min/1.73m(2) GFR < 60 ml/min/1.73m(2) = Chronic Kidney Disease. GFR < 15 ml/min/1.73m(2) = Kidney Failure. Sodium 142 133 - 145 mEq/L [facility] Potassium 4.6 3.3 - 5.1 mEq/L [facility] Chloride 102 95 - 108 mEq/L [facility] CO2 25 21 - 30 mEq/L [facility] Anion Gap 20 14 - 20 mEq/L [facility] Calcium 9.3 8.3 - 10.5 mg/dL [facility] SGOT (AST) 22 0 - 40 IU/L [facility] SGPT (ALT) 13 0 - 41 IU/L [facility] Alkaline Phosphatase 121 35 - 129 IU/L [facility] Bilirubin, Total 0.3 0 - 1.2 mg/dL [facility] Total Protein 7.2 6.4 - 8.3 gm/dL [facility] Albumin 4.3 3.5 - 5.2 gm/dL [facility] 05/12/2016 1:25 PM HST 05/12/2016 1:31 PM HST Chester Child MD CHEMISTRY-ORDERABLE [facility] [phone] [facility] [place] [employer] [address] [facility] [phone] [place] [address] * CBC with Diff (05/12/2016 1:25 PM HST) White Blood Count 6.45 3.80 - 10.80 x10(3)/uL [facility] Red Blood Cell Count 4.74 4.00 - 6.20 x10(6)/uL [facility] Hemoglobin 14.8 13.7 - 17.5 g/dL [facility] Hematocrit 43.0 40.1 - 51.0 % [facility] MCV 90.7 79.4 - 98.4 fL [facility] MCH 31.2 26.0 - 34.0 pg [facility] MCHC 34.4 32.0 - 36.0 g/dL [facility] Neutrophil 63.2 34.0 - 72.0 % [facility] Lymphocyte 28.5 12.0 - 44.0 % [facility] Monocyte 6.0 0.0 - 12.0 % [facility] Eosinophil 1.2 0.0 - 7.0 % [facility] Basophil 0.9 0.0 - 2.0 % [facility] Nucleated RBC 0.0 0.0 - 0.2 /100 WBC [facility] Platelet Count 209 151 - 424 x10(3)/uL [facility] Imm Granulocyte 0.2 0.0 - 1.0 % [facility] Abs Neutrophils 4.07 1.56 - 6.20 x10(3)/uL [facility] Abs Imm Granulo 0.01 0.0 - 0.10 x10(3)/uL [facility] RDW 13.7 11.6 - 14.4 % [facility] 05/12/2016 1:25 PM HST 05/12/2016 1:31 PM HST Cehster Child MD HEMATOLOGY-ORDERABLE [facility] [phone] [facility] [place] [address] [facility] [phone] [facility] [place] [address] documented in this encounter Visit Diagnoses Diagnosis Dysuria- Primary documented in this encounter
--- OUTSIDE RECORDS SUMMARY | 2024-03-31 04:10 | XMS_ITS | Encounter Summary ---
Author Organization The [facility] Address [address] [place] [address] Care Team Providers Care Business Account Specialist Name Role Phone Unavailable Primary Care Provider Unavailabl e Reason for Visit * (Routine) - Closed Specialty Diagnoses / Procedures Referred By Tram griffin Referred To Contact Radiology Procedures XR CHEST PA & LAT [facility] [phone] [facility] [place] [address] Referral ID Status Reason Start Date Expiration Date Visits Re quested Visits Authorized [id number] Closed 05/06/2017 1 1 Encounter Details Date Type Department Care Team (Late st Contact Info) Description 03/07/2016 11:30 AM HST - 03/07/2016 11:59 PM HST Hospital Encounter [facility] [phone] [facility] [place] [address] Madan Esposito MD [phone] [phone] Discharge Disposition: D/C Home, Self Care Social [...] Priority Date/Time Associated Diagnosis Comments XRAY - CHEST PA & LAT Routine 03/07/2016 11:44 AM HST documented in this encounter Results * XRAY - CHEST PA & LAT PRE OP PROSTATE SURGERY (03/07/2016 11:44 AM HST) Anatomical Region Laterality Modality Chest Computed Radiogr aphy 03/07/2016 1:06 PM HST Impressions 03/07/2016 1:06 PM HST IMPRESSION: NO ACTIVE DISEASE IN THE CHEST. Narrative 03/07/2016 1:06 PM HST Result Status: Finalized Authenticating Radiologist: Mendez Brunson Requestor: MADAN ESPOSITO Reason for Exam: PRE OP PROSTATE SURGERY CHEST X-RAY HISTORY: PRE OP PROSTATE SURGERY TECHNIQUE: Upright PA and lateral. COMPARISON: None available RESULT: Heart/mediastinum: Within normal limits. Lungs/pleura: Clear. Bones: Unremarkable. Lines/tubes/devices: None visualized. Procedure Note Mendez Brunson MD - 03/07/2016 Result Status: Finalized Authenticating Radiologist: Mendez Brunson Requestor: MADAN ESPOSITO Reason for Exam: PRE OP PROSTATE SURGERY CHEST X-RAY HISTORY: PRE OP PROSTATE SURGERY TECHNIQUE: Upright PA and lateral. COMPARISON: None available RESULT: Heart/mediastinum: Within normal limits. Lungs/pleura: Clear. Bones: Unremarkable. Lines/tubes/devices: None visualized. IMPRESSION: NO ACTIVE DISEASE IN THE CHEST. Madan Esposito MD XRAY-ORDERABLE documented in this encounter Visit Diagnoses Not on filedocumented in this encounter
--- OUTSIDE RECORDS SUMMARY | 2024-03-31 04:10 | XMS_ITS | Encounter Summary ---
Author Organization The [facility] Address [address] [place] [address] Care Team Providers Care Lunchroom Worker Name Role Phone Unavailable Primary Care Provider Unavailabl e Reason for Visit * Referral (Routine) - Closed Specialty Diagnoses / Procedures Referred By Tram griffin Referred To Contact Radiology Procedures XR CHEST PA & LAT [facility] [phone] [facility] [address] Referral ID Status Reason Start Date Expiration Date Visits Re quested Visits Authorized [id number] Closed 1 1 Encounter Details Date Type Department Care Team (Late st Contact Info) Description 07/20/2017 2:48 PM HST - 07/20/2017 11:59 PM HST Hospital Encounter [facility] [phone] [facility] [place] [place] [address] Jens Esposito MD [phone] [phone] Discharge Disposition: D/C Home, Self Care Social [...] XRAY - CHEST PA & LAT Routine 07/20/2017 3:15 PM HST documented in this encounter Results * XRAY - CHEST PA & LAT (07/20/2017 3:15 PM HST) Anatomical Region Laterality Modality Chest Computed Radiogr aphy 07/20/2017 3:44 PM HST Impressions 07/20/2017 3:46 PM HST IMPRESSION: NO ACUTE RADIOGRAPHIC ABNORMALITY. THIS REPORT WAS ELECTRONICALLY SIGNED BY MATTHEW AVILA. Narrative 07/20/2017 3:46 PM HST Result Status: Finalized Authenticating Radiologist: Matthew Avila Requestor: FELICITA UMANZOR Reason for Exam: COUGHING/WHEEZING FOR 1 MONTH EXAMINATION: ??CHEST RADIOGRAPH (2 VIEW FRONTAL ??T ??LATERAL) Indication: ??COUGHING/WHEEZING FOR 1 MONTH Comparison: ??03/07/2016 RESULT: Lines, tubes, and devices: ??None. Lungs and pleura: ??No consolidation. No lung mass. No pleural effusion. Cardiomediastinal silhouette: ??The cardiac silhouette is normal in size. ??Aorta is mildly tortuous. ??The hilar structures appear within normal limits. Other: ??Mild to moderate hypertrophic endplate spurring is seen in the spine. Procedure Note Matthew Avila MD - 07/20/2017 Result Status: Finalized Authenticating Radiologist: Matthew Avila Requestor: FELICITA UMANZOR Reason for Exam: COUGHING/WHEEZING FOR 1 MONTH EXAMINATION: CHEST RADIOGRAPH (2 VIEW FRONTAL T LATERAL) Indication: COUGHING/WHEEZING FOR 1 MONTH Comparison: 03/07/2016 RESULT: Lines, tubes, and devices: None. Lungs and pleura: No consolidation. No lung mass. No pleural effusion. Cardiomediastinal silhouette: The cardiac silhouette is normal in size.Aorta is mildly tortuous. The hilar structures appear within normal limits. Other: Mild to moderate hypertrophic endplate spurring is seen in thespine. IMPRESSION: IMPRESSION: NO ACUTE RADIOGRAPHIC ABNORMALITY. THIS REPORT WAS ELECTRONICALLY SIGNED BY MATTHEW AVILA. Felicita-Leeanne Rizvi MD XRAY-ORDERABLE documented in this encounter Visit Diagnoses Not on filedocumented in this encounter
--- OUTSIDE RECORDS SUMMARY | 2024-03-31 04:10 | XMS_ITS | Encounter Summary ---
Author Organization [facility] Address [address] [place] [address] Care Team Providers Care Political Researcher Name Role Phone Unavailable Primary Care Provider Unavailabl e Reason for Visit * Referral (Routine) - Closed Specialty Diagnoses / Procedures Referred By Tram griffin Referred To Contact Radiology Procedures XR CHEST PA & LAT [facility] [phone] [facility] [address] Referral ID Status Reason Start Date Expiration Date Visits Re quested Visits Authorized [id number] Closed 1 1 Encounter Details Date Type Department Care Team (Late st Contact Info) Description 08/29/2019 1:33 PM HST - 08/29/2019 11:59 PM T Hospital Encounter [facility] Imaging Services [address] [facility] [address] Madan Esposito MD [phone] [phone] Discharge Disposition: D/C Home, Self Care Social [...] XRAY - CHEST PA & LAT Routine 08/29/2019 1:52 PM HST documented in this encounter Results * XRAY - CHEST PA & LAT (08/29/2019 1:52 PM HST) Anatomical Region Laterality Modality Chest Computed Radiogr aphy 08/29/2019 1:57 PM HST Impressions 08/29/2019 2:00 PM HST IMPRESSION: NO ACUTE RADIOGRAPHIC ABNORMALITY. THIS REPORT WAS ELECTRONICALLY SIGNED BY MATTHEW AVILA. Narrative 08/29/2019 2:00 PM HST Result Status: Finalized Authenticating Radiologist: Matthew Avila Requestor: MADAN ESPOSITO Reason for Exam: CHRONIC COUGH BRONCHITIS R05 EXAMINATION: ??CHEST RADIOGRAPH (2 VIEW FRONTAL ??T ??LATERAL) CLINICAL HISTORY: Chronic cough, bronchitis MQ: ??XC2_5 Comparison: ??07/20/2017 RESULT: Lines, tubes, and devices: ??None. Lungs and pleura: ??No consolidation. No lung mass. No pleural effusion. ??There is no evidence of pneumothorax. Cardiomediastinal silhouette: ??The cardiac silhouette is normal in size. ??The aorta is tortuous. ??The hilar structures appear within normal limits. Other: ??The visualized portions of the bony thorax appear intact. ??Hypertrophic endplate spurring is seen in the mid and lower thoracic spine. ??Radiopaque density seen superimposed over the fecal stream on the lateral view, likely representing ingested material. Procedure Note Matthew Avila MD - 08/29/2019 Result Status: Finalized Authenticating Radiologist: Matthew Avila Requestor: MADAN ESPOSITO Reason for Exam: CHRONIC COUGH BRONCHITIS R05 EXAMINATION: CHEST RADIOGRAPH (2 VIEW FRONTAL T LATERAL) CLINICAL HISTORY: Chronic cough, bronchitis MQ: XC2_5 Comparison: 07/20/2017 RESULT: Lines, tubes, and devices: None. Lungs and pleura: No consolidation. No lung mass. No pleural effusion.There is no evidence of pneumothorax. Cardiomediastinal silhouette: The cardiac silhouette is normal in size.The aorta is tortuous. The hilar structures appear within normal limits. Other: The visualized portions of the bony thorax appear intact.Hypertrophic endplate spurring is seen in the mid and lower thoracic spine. Radiopaque densityseen superimposed over the fecal stream on the lateral view, likely representing ingestedmaterial. IMPRESSION: IMPRESSION: NO ACUTE RADIOGRAPHIC ABNORMALITY. THIS REPORT WAS ELECTRONICALLY SIGNED BY MATTHEW AVILA. Madan Esposito MD XRAY-ORDERABLE documented in this encounter Visit Diagnoses Not on filedocumented in this encounter
--- OUTSIDE RECORDS SUMMARY | 2024-03-31 04:10 | XMS_ITS | Encounter Summary ---
Author Organization [facility] Address [address] [place] [address] Care Team Providers Care Pusher Operator Name Role Phone Unavailable Primary Care Provider Unavailabl e Reason for Visit * Auth/Cert Specialty Diagnoses / Procedures Referred By Tram griffin Referred To Contact Referral ID Status Reason Start Date Expiration Date Visits Re quested Visits Authorized [id number] 1 1 Encounter Details Date Type Department Care Team (Late st Contact Info) Description 01/26/2020 8:27 AM HST - 01/26/2020 11:59 PM T Hospital Encounter [facility] Out[facility] Rehab [address] [place] [address] Zbigniew Saavedra MD [phone] [facility] [address] [place] [phone] Jenn Brewer, PT Discharge Disposition: Still A [...] Progress Notes * Jenn Brewer, PT - 01/26/2020 8:30 AM HST OUTPATIENT PHYSICAL THERAPY TREATMENT NOTE Date of Service: 01/26/2020 Visit #: 12/08 Treatment Start Time: 829 1:1 Direct Physical Therapist Contact: Yes SUBJECTIVE The knee felt good all day post therapy after last treatment, pain returned yesterday Pain Scale: 2/10 OBJECTIVE Treatment: Manual Therapy: STM L knee musculature to decrease pain and tension, focus on posterior region, foam roll to IT band. lumbar distraction to reduce radiating symptoms Therapeutic Exercises Exercise #1: nu step 5 min Heel Raise: 20x standing Hip Abduction: sidelying 10x, cybex 5 pl 2x 10 Hip Adduction: supine with ball 10x 10 sec, cybex 2x 10 Straight Leg Raise: 10x Step Down: 6 in 10x Step Up: 4 in 20x Tilt Board: 10x TKE: orange tband 2x 10 Knee Extension: 20 sec x 3 with roll under ankle Gastrocnemius Stretch: 2x 30 sec Hamstring Stretch: 3x 30 sec supine with strap ITB Stretch: 2x 30 sec supine with strap and standing. IT band foam roll 15x Plantar Fascia Stretch: 2x 30 sec Soleus Stretch: 2x 30 sec Patient Education: Daily habits;Review Home exercise program;Rehabilitation process ASSESSMENT Pt has decreased pain levels post therapy, tight hamstrings, IT band, quads, improved post therapy PLAN Focus on L knee strength, ROM, gait Today's Treatment Total Tx Time (minutes): 60 Timed Code Tx (minutes): 60 Therapeutic Exercise (Minutes): 45 Manual Therapy (Minutes): 15 Other Charges Charge ID Procedure Code Description Qty. Modifiers Prn Occupational Therapist User Diagnosis [id number] [facility] PT EXERCISE 15 MIN 3 Jenn Brewer PT [id number] [facility] PT MANUAL THERAPY 15 MIN 1 Jenn Brewer PT Signed by: Jenn Brewer PT documented in this encounter Plan of Treatment Not on file documented as of this encounter Visit Diagnoses Not on filedocumented in this encounter
--- OUTSIDE RECORDS SUMMARY | 2024-03-31 04:10 | XMS_ITS | Encounter Summary ---
Author Organization [facility] Address [address] [place] [address] Care Team Providers Care 6Th Grade Teacher Name Role Phone Unavailable Primary Care Provider Unavailabl e Encounter Details Date Type Department Care Team (Late st Contact Info) Description 01/04/2020 10:15 AM HST Ancillary Procedure [facility] Imaging Specialty [phone] [facility], [address] [place] [address] Zbigniew Saavedra MD [phone] [facility] [address] [place] [phone] Left knee pain, unspecified chronicity Discharge Disposition: [...] KNEE (AP, LAT, NOTCH & MERCHANT) Routine 01/04/2020 10:21 AM HST Left knee pain, unspecified chronicity documented in this encounter Results * XRAY - KNEE (AP, LAT, NOTCH & MERCHANT) (01/04/2020 10:21 AM HST) Anatomical Region Laterality Modality Knee Computed Radiogr aphy Impressions 01/04/2020 10:35 AM HST Left knee x-rays negative for acute pathology or significant degenerative change. INDICATION: Chronic left knee pain. XRAYS: Complete left knee x-ray series as identified above. INTERPRETATION: Left knee x-ray series show no acute pathology including fracture or dislocation. ??The joint spaces are relatively preserved. ?? Minimal spurring over the lateral patellar facet. ??Enthesopathy (mild) of the quadriceps tendon at its patellar attachment. ??No soft tissue pathology. ??Irregularities due to patient's clothing are noted especially posteriorly. Narrative 01/04/2020 10:35 AM HST [facility] - Orthopedic Radiology Report Zbigniew Saavedra MD XRAY-ORDERABLE documented in this encounter Visit Diagnoses Diagnosis Left knee pain, unspecified chronicity documented in this encounter
--- OUTSIDE RECORDS SUMMARY | 2024-03-31 04:10 | XMS_ITS | Encounter Summary ---
Author Organization [facility] Address [address] [place] [address] Care Team Providers Care Medical Transcriber Name Role Phone Unavailable Primary Care Provider Unavailabl e Encounter Details Date Type Department Care Team (Late st Contact Info) Description 05/02/2020 10:30 AM HST Ancillary Procedure [facility] Imaging Specialty [phone] [facility], [address] [place] [address] Zbigniew Saavedra MD [phone] [facility] [address] [address] [facility] [place] [phone] Pain of right heel Discharge Disposition: D/C Home, Self Care Social [...] Priority Date/Time Associated Diagnosis Comments XRAY - HEEL (TANGENTIAL & LAT) Routine 05/02/2020 10:47 AM HST Pain of right heel documented in this encounter Results * XRAY - HEEL (05/02/2020 10:47 AM HST) Anatomical Region Laterality Modality Foot Computed Radiogr aphy Impressions 05/02/2020 11:20 AM HST Right calcaneus/heel x-ray significant for small calcific change Achilles tendon region and plantar spur INDICATION: Acute right hindfoot/Achilles pain XRAYS: Right heel x-rays as above. INTERPRETATION: Right heel x-ray series as above show no acute pathology including fracture. ??There is no evidence of stress fracture. ??No advanced degenerative changes. ??There is a small calcific deposit within the Achilles tendon interval proximal to the insertion. ??Calcar plantar spur also noted. Narrative 05/02/2020 11:20 AM HST [facility] Specialty [facility] - Orthopedic Radiology Report Zbigniew Saavedra MD XRAY-ORDERABLE documented in this encounter Visit Diagnoses Diagnosis Pain of right heel Pain in limb documented in this encounter
--- OUTSIDE RECORDS SUMMARY | 2024-03-31 04:10 | XMS_ITS | Encounter Summary ---
Author Organization [facility] Address [address] [place] [address] Care Team Providers Care Interior Mechanic Name Role Phone Unavailable Primary Care Provider Unavailabl e Reason for Visit * Auth/Cert Specialty Diagnoses / Procedures Referred By Tram griffin Referred To Contact Referral ID Status Reason Start Date Expiration Date Visits Re quested Visits Authorized [id number] 1 1 Encounter Details Date Type Department Care Team (Late st Contact Info) Description 01/24/2020 10:29 AM HST - 01/24/2020 11:59 PM T Hospital Encounter [facility] Outpatient Rehab [address] [place] [address] Zbigniew Saavedra MD [phone] [facility] [address] [facility] [place] [phone] Jenn Brewer, PT Discharge Disposition: Still A [...] Progress Notes * Jenn Brewer, PT - 01/24/2020 10:30 AM HST OUTPATIENT PHYSICAL THERAPY TREATMENT NOTE Date of Service: 01/24/2020 Visit #: 11/07 Treatment Start Time: 1030 1:1 Direct Physical Therapist Contact: Yes SUBJECTIVE the knee feels about the same, still sore posteriorly Pain Scale: 2/10 OBJECTIVE Treatment: Manual Therapy: STM L knee musculature to decrease pain and tension, focus on posterior region, foam roll to IT band. lumbar distraction to reduce radiating symptoms Therapeutic Exercises Exercise #1: nu step 5 min Heel Raise: 20x standing Hip Abduction: cybex 20x 5 pl Hip Adduction: cybex 20x 5 pl Step Down: 4 in 10x Step Up: 4 in 20x TKE: orange tband 2x 10 Knee Extension: off edge of mat 3 min with 5 lb Gastrocnemius Stretch: 2x 30 sec Hamstring Stretch: 3x 30 sec supine with strap ITB Stretch: 2x 30 sec supine with strap and standing Plantar Fascia Stretch: 2x 30 sec Patient Education: Daily habits;Review Home exercise program;Rehabilitation process ASSESSMENT Pt has improved ROM and functional ability post therapy with decreased pain and mm tension. PLAN Focus on L knee strength, ROM, gait Today's Treatment Total Tx Time (minutes): 60 Timed Code Tx (minutes): 60 Therapeutic Exercise (Minutes): 45 Manual Therapy (Minutes): 15 Other Charges Charge ID Procedure Code Description Qty. Modifiers Mash Tub Cooker User Diagnosis [id number] [facility] PT EXERCISE 15 MIN 3 Jenn Brewer PT [id number] [facility] PT MANUAL THERAPY 15 MIN 1 Jenn Brewer PT Signed by: Jenn Brewer PT documented in this encounter Plan of Treatment Not on file documented as of this encounter Visit Diagnoses Not on filedocumented in this encounter
--- OUTSIDE RECORDS SUMMARY | 2024-03-31 04:10 | XMS_ITS | Encounter Summary ---
Author Organization [facility] Address [address] [place] [address] Care Team Providers Care Music Agent Name Role Phone Unavailable Primary Care Provider Unavailabl e Reason for Visit * Auth/Cert Specialty Diagnoses / Procedures Referred By Tram griffin Referred To Contact Referral ID Status Reason Start Date Expiration Date Visits Re quested Visits Authorized [id number] 1 1 Encounter Details Date Type Department Care Team (Late st Contact Info) Description 02/28/2020 12:24 PM HST - 02/28/2020 11:59 PM HST Hospital Encounter [facility] Outpatient Rehab [address] [facility] [place] [address] Referring, Doctor, DO NOT change name. DO NOT not update address. If you do not know how to create a new referring physician, contact your lift supervisor. Jenn Brewer, PT Discharge Disposition: Still A [...] Progress Notes * Jenn Brewer, PT - 02/28/2020 12:30 PM HST OUTPATIENT PHYSICAL THERAPY TREATMENT NOTE Date of Service: 02/28/2020 Visit #: 06/09 Treatment Start Time: 1230 1:1 Direct Physical Therapist Contact: Yes SUBJECTIVE L knee has improved overall since SOC but the last week or so the pain levels are about the same. Following therapy visits the knee always feels better. Pain Scale: 1-2/10 OBJECTIVE Measurements: L knee ROM 0-140. LEFS: 61% Treatment: Manual Therapy: STM L knee musculature [...] habits;Review Home exercise program;Rehabilitation process ASSESSMENT Pt continues to have tight L IT band, L hamstring contributing to pain and activity limitation but overall shows significant improvement since SOC. He is walking with equal step and stride length, noantalgia. ROM WNL.He has met most correction goals: Finished Yarn Examiner Goals 1) Pt to demonstrate gait with equal step and stride length, toe off with full extension L LE to normalize gait pattern (MET) 2) Pt will report pain posterior knee complex less than 4/10 with activity in order to increase function (MET) 3) Pt will improve function as seen by increase in LEFS by at least 10% (Progressed: SOC 54%, D/C 61%) ?? PLAN D/C with HEP Today's Treatment Total Tx Time (minutes): 60 Timed Code Tx (minutes): 60 Therapeutic Exercise (Minutes): 45 Manual Therapy (Minutes): 15 Other Charges Charge ID Procedure Code Description Qty. Modifiers Adjunct Mathematics Instructor User Diagnosis [id number] PT EXERCISE 15 MIN 3 Jenn Brewer PT [id number] [facility] PT MANUAL THERAPY 15 MIN 1 Jenn Brewer, PT Signed by: Jenn Brewer PT documented in this encounter Plan of Treatment Not on file documented as of this encounter Visit Diagnoses Not on filedocumented in this encounter
--- OUTSIDE RECORDS SUMMARY | 2024-03-31 04:10 | XMS_ITS | Encounter Summary ---
Author Organization [facility] Address [address] [place] [address] Care Team Providers Care Social Human Services Assistants Name Role Phone Unavailable Primary Care Provider Unavailabl e Encounter Details Date Type Department Care Team (Late st Contact Info) Description 12/28/2019 Orders Only [facility] [phone] [facility] [address] [facility], [place] [address] Stephy Monet Left knee pain, unspecified chronicity (Primary Dx) [...] especially posteriorly. Narrative 01/04/2020 10:35 AM HST [facility] Specialty [facility] - Orthopedic Radiology Report Zbigniew Saavedra MD XRAY-ORDERABLE documented in this encounter Visit Diagnoses Diagnosis Left knee pain, unspecified chronicity- Primary Left knee pain, unspecified chronicity documented in this encounter
--- OUTSIDE RECORDS SUMMARY | 2024-03-31 04:10 | XMS_ITS | Encounter Summary ---
Author Organization [facility] Address [address] [place] [address] Care Team Providers Care Climate Change Analyst Name Role Phone Unavailable Primary Care Provider Unavailabl e Reason for Visit * Reason Onset Date Comments Med Refill Req. 02/27/2020 Prednisone Encounter Details Date Type Department Care Team (Late st Contact Info) Description 02/27/2020 Refill [facility] Surgery Clinic [phone] [facility] [address] [place] [address] Kristen Couch Social History Tobacco Use Types Packs/Day Years [...] encounter Miscellaneous Notes * Telephone Encounter - Kristen Couch - 02/27/2020 11:10 AM HST Called patient back and left him a VM and advised him of Dr. Saavedra's response. Advised patient to call back. * Telephone Encounter - Zbigniew Saavedra MD - 02/27/2020 11:00 AM HST He is just recently had one. This should not be used that frequently. I limit this to 2 or 3 times a year and prefer they be spaced apart. May consider referring him to the [facility] pain clinic for evaluation and possible injection treatment. Thank you * Telephone Encounter - Kristen Couch - 02/27/2020 10:38 AM HST Patient called this morning requesting a refill on his prednisone. Please let me know if it is okayto refill, order is in. I will call patient once a decision is made. documented in this encounter Plan of Treatment Not on file documented as of this encounter Visit Diagnoses Not on filedocumented in this encounter
--- OUTSIDE RECORDS SUMMARY | 2024-03-31 04:10 | XMS_ITS | Encounter Summary ---
Author Organization [facility] Address [address] [place] [address] Care Team Providers Care [place] Assessor Name Role Phone Unavailable Primary Care Provider Unavailabl e Reason for Visit * (Routine) - Closed Specialty Diagnoses / Procedures Referred By Tram griffin Referred To Contact Radiology Procedures US BLADDER [facility] Ultrasound [phone] [place] [address] Referral ID Status Reason Start Date Expiration Date Visits Re quested Visits Authorized [id number] Closed 1 1 Encounter Details Date Type Department Care Team (Latest Contact Info) Description 05/02/2016 2:04 PM HST - 05/02/2016 11:59 PM HST Hospital Encounter [facility] Ultrasound [address] [place] [address] Kemar Maddox MD [address] [address] (LIC EXP 09-30-17) [place] [phone] Discharge Disposition: D/C Home, Self Care Social [...] Procedure Name Priority Date/Time Associated Diagnosis Comments US - BLADDER Routine 05/02/2016 2:36 PM HST documented in this encounter Results * US - BLADDER W/POST VOID RESIDUAL , N40.1 ENLARGED W/LOWER URINARY TRACT SYMPTOMS (05/02/2016 2:36 PM HST) Anatomical Region Laterality Modality Pelvis Ultrasound 05/02/2016 4:01 PM HST Impressions 05/02/2016 4:03 PM HST IMPRESSION: 1. ??SMALL POSTVOID BLADDER RESIDUAL. 2. ??ENLARGED PROSTATE GLAND. THIS REPORT WAS ELECTRONICALLY SIGNED BY SHAUNA BRUNSON. Narrative 05/02/2016 4:03 PM HST Result Status: Finalized Authenticating Radiologist: Shauna Brunson Requestor: KEMAR MADDOX Reason for Exam: W/POST VOID RESIDUAL , N40.1 ENLARGED W/LOWER URINARY TRACT SYMPTOMS ULTRASOUND OF BLADDER HISTORY: W/POST VOID RESIDUAL , N40.1 ENLARGED W/LOWER URINARY TRACT SYMPTOMS COMPARISON: No prior studies are available. TECHNIQUE: Real-time high resolution ultrasound scanning was performed by a registered technologist and multiple images were stored in a permanent archive. ? RESULT: Pre-void bladder volume: 295 mL. Post void bladder volume: 83 mL Enlarged prostate gland. Color Doppler scanning shows a left urine jet any possible right urine jet. Procedure Note Shauna Brunson MD - 05/02/2016 Result Status: Finalized Authenticating Radiologist: Shauna Brunson Requestor: KEMAR MADDOX Reason for Exam: W/POST VOID RESIDUAL , N40.1 ENLARGED W/LOWER URINARYTRACT SYMPTOMS ULTRASOUND OF BLADDER HISTORY: W/POST VOID RESIDUAL , N40.1 ENLARGED W/LOWER URINARY TRACTSYMPTOMS COMPARISON: No prior studies are available. TECHNIQUE: Real-time high resolution ultrasound scanning was performed bya registered technologist and multiple images were stored in a permanent archive. RESULT: Pre-void bladder volume: 295 mL. Post void bladder volume: 83 mL Enlarged prostate gland. Color Doppler scanning shows a left urine jet any possible right urinejet. IMPRESSION: 1. SMALL POSTVOID BLADDER RESIDUAL. 2. ENLARGED PROSTATE GLAND. THIS REPORT WAS ELECTRONICALLY SIGNED BY SHAUNA BRUNSON. Kemar Maddox MD ULTRASOUND-ORDERA BLE documented in this encounter Visit Diagnoses Not on filedocumented in this encounter
--- OUTSIDE RECORDS SUMMARY | 2024-03-31 04:10 | XMS_ITS | Encounter Summary ---
Author Organization [facility] Address [address] [place] [address] Care Team Providers Care Safety Lamp Keeper Name Role Phone Unavailable Primary Care Provider Unavailabl e Reason for Visit * Auth/Cert Specialty Diagnoses / Procedures Referred By Tram griffin Referred To Contact Referral ID Status Reason Start Date Expiration Date Visits Re quested Visits Authorized [id number] 1 1 Encounter Details Date Type Department Care Team (Late st Contact Info) Description 02/02/2020 10:24 AM HST - 02/02/2020 11:59 PM T Hospital Encounter [facility] [id number] [facility] [place] [address] Referring, Doctor, DO NOT change name. DO NOT not update address. If you do not know how to create a new referring physician, contact your cooking casing and drying supervisor. Jenn Brewer, PT Discharge Disposition: Still [...] Progress Notes * Jenn Brewer, PT - 02/02/2020 10:30 AM HST OUTPATIENT PHYSICAL THERAPY TREATMENT NOTE Date of Service: 02/02/2020 Visit #: 02/07 Treatment Start Time: 1030 1:1 Direct Physical Therapist Contact: Yes SUBJECTIVE The knee actually had no pain this morning for a while. Appt with MD batista well Pain Scale: 09/09 OBJECTIVE Treatment: Manual Therapy: STM L knee musculature to decrease pain and tension, focus on posterior region, foam roll to IT band. Therapeutic Exercises Exercise #1: nu step 5 min Exercise #2: tandem stand aeromat 1 min, walk aeromat 10x 6 ft fwd, bk Exercise #3: BOSU stand 3x 1 min Exercise #4: side step with no resisit, with orange tband resist on thighs, with green tband resistcrossed over feet,cross over step fwd, bk,10 ft ea, Exercise #5: ladder walk x 10 ft fwd, side, crossover front x 5 reps, Hamstring Curl: prone 10x, with 3 lb wt 10x Heel Raise: 20x standing on aeromat Hip Abduction: sidelying 10x with 3 lb wt Hip Adduction: sidelying 10x with 3 lb wt Straight Leg Raise: 10x with 3 lb wt Step Down: 6 in 10x Step Up: 6 in 20x Tilt Board: 10x TKE: orange tband 2x 10 Knee Extension: 20 sec x 3 with roll under ankle Gastrocnemius Stretch: 2x 30 sec Hamstring Stretch: 30 sec supine with strap Plantar Fascia Stretch: 2x 30 sec Patient Education: Review Home exercise program;Rehabilitation process;Daily habits ASSESSMENT Pt demonstrates improved mobility, functional ability with low pain levels. Continues to have pain popliteal region L LE, tight IT band, quads, hams PLAN Focus on L knee strength, ROM, gait Today's Treatment Total Tx Time (minutes): 60 Timed Code Tx (minutes): 60 Therapeutic Exercise (Minutes): 45 Manual Therapy (Minutes): 15 Other Charges Charge ID Procedure Code Description Qty. Modifiers Engine Repairer User Diagnosis [id number] [facility] PT EXERCISE 15 MIN 3 Jenn Brewer PT [id number] [facility] PT MANUAL THERAPY 15 MIN 1 Jenn Brewer PT Signed by: Jenn Brewer PT documented in this encounter Plan of Treatment Not on file documented as of this encounter Visit Diagnoses Not on filedocumented in this encounter
--- OUTSIDE RECORDS SUMMARY | 2024-03-31 04:10 | XMS_ITS | Encounter Summary ---
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 Name Role Phone Unavailable Primary Care Provider Unavailabl e Reason for Visit * Reason Comments Retention, Urine Pt c/c of urgency to urinate with difficulty voiding x 1 week * Auth/Cert Specialty Diagnoses / Procedures Referred By Tram griffin Referred To Contact Diagnoses URINE RETENTION Referral ID Status Reason Start Date Expiration Date Visits Re quested Visits Authorized [id number] 1 1 Encounter Details Date Type Department Care Team (Late st Contact Info) Description 05/07/2016 7:15 PM HST - 05/07/2016 8:54 PM HST Emergency [facility] Dept [id number] [facility] [place] [address] [place], [place] [address] [facility] [id number] Discharge Disposition: D/C Home, Self Care Social [...] Sign Reading Time Taken Comments Blood Pressure 138/80 05/07/2016 8:00 PM HST Pulse 83 05/07/2016 8:00 PM HST Temperature 37.1 ??C (98.7 ??F) 05/07/2016 6:59 PM HS T Respiratory Rate 16 05/07/2016 8:00 PM HST Oxygen Saturation 98% 05/07/2016 8:00 PM HST Inhaled Oxygen Concentration - - Weight 72.6 kg (160 lb) 05/07/2016 6:59 PM HST Height 182.9 cm (6') 05/07/2016 6:59 PM HST Body Mass Index 21.7 05/07/2016 6:59 PM HST documented in this encounter Discharge Instructions * Discharge Instructions* Jl Lee, - 05/07/2016 8:31 PM HST Images from the original note were not included. Paulson Catheter Placement and Care WHAT YOU NEED TO KNOW: A Paulson catheter is a sterile (germ-free) tube that is inserted into your bladder to drain urine. It is also called an indwelling urinary catheter. The tip of the catheter has a small balloon filled with solution that holds the catheter inside your bladder. DISCHARGE INSTRUCTIONS: Care for your Paulson catheter: ?? Clean your genital area every day. Use soap and water. Clean your catheter and the area around where it was inserted. ?? Secure the catheter tube so you do not pull or move the catheter. This helps prevent pain and bladder spasms. Caregivers will show you how to use medical tape or a strap to secure the catheter tube to your body. ?? Keep a closed drainage system. Your Paulson catheter should always be attached to the drainage bagto form a closed system. Do not disconnect any part of the closed system unless you need to change the bag. Care for your drainage bag: ?? Keep the drainage bag below the level of your waist. This helps stop urine from moving back up the tubing and into your bladder. Do not loop or kink the tubing. This can cause urine to back up andcollect into your bladder. Do not let the drainage bag touch or lie on the floor. ?? Empty the drainage bag when needed. The weight of a full drainage bag can be painful. Empty the drainage bag every 3 to 6 hours or when it is ? full. ?? Clean and change the drainage bag as directed. Ask your primary healthcare provider (PHP) how often you should change the drainage bag and what cleaning solution to use. Wear medical gloves when you change the bag. Do not allow the end of the catheter or tubing to touch anything. Clean the ends with an alcohol pad before you reconnect them. Problems that may happen: ?? No urine is draining into the bag. ?? Check for kinks in the tubing and straighten them out. ?? Check the tape or strap used to secure the catheter tube to your skin. Make sure it is not blocking the tube. ?? Make sure you are not sitting or lying on the tubing. ?? Make sure the urine bag is hanging below the level of your waist. ?? Urine leaks from or around the catheter, tubing, or drainage bag. Check if the closed drainage system has accidently come open or apart. Clean the catheter and tubing ends with a new alcohol pad and reconnect them. Prevent an infection: ?? Wash your hands before and after you touch your catheter, tubing, or drainage bag. Use soap and water. Wear clean medical gloves when you care for your catheter or disconnect the drainage bag. Wash your hands before you prepare or eat food. ?? Drink liquids as directed. Ask your PHP how much liquid to drink each day and which liquids are best for you. Liquids will help flush your kidneys and bladder to prevent infection. Follow up with your PHP as directed: Write down your questions so you remember to ask them during your visits. Contact your PHP if: ?? You have a fever. ?? You see blood in the tubing or drainage bag. ?? You have a rash or itching where the catheter tube is secured to your skin. ?? Urine leaks from or around the catheter, tubing, or drainage bag. ?? The closed drainage system has accidently come open or apart. ?? You see a layer of crystals inside the tubing. ?? You have questions or concerns about your condition or care. Return to the emergency department if: ?? Your catheter comes out. ?? You suddenly have material that looks like sand in the tubing or drainage bag. ?? There is no urine draining into the bag and you have checked the system. ?? You have pain in your hip, back, pelvis, or lower abdomen. ?? You have bladder spasms. ?? You are confused or cannot think clearly. ?? 2016 [employer]. Information is for End User's use only and may not be sold, redistributed or otherwise used for commercial purposes. All illustrations and images included in CareNotes?? are the copyrighted property of [employer]). or [employer]. The above information is an child care aide only. It is not intended as medical advice for individual conditions or treatments. Talk to your doctor, nurse or pharmacist before following any medical regimen to see if it is safe and effective for you. Urinary Retention in Men WHAT YOU SHOULD KNOW: Urinary retention is a condition that develops if your bladder does not empty when you urinate. AFTER YOU LEAVE: Medicines: ?? 3-whgwr-lmfcrsmai inhibitors: These medicines help decrease the size of the prostate. This may help reduce the pressure on your urethra and allow you to empty your bladder. ?? Alpha blockers: These medicines relax the muscles in your prostate and bladder and may help you urinate more easily. ?? Antibiotics: This medicine is given to fight an infection in your bladder caused by bacteria. Take them as directed. ?? Hormone therapy: This medicine may help slow tumor growth. ?? Take your medicine as directed: Call your primary healthcare provider if you think your medicineis not helping or if you have side effects. Tell him if you are allergic to any medicine. Keep a list of the medicines, vitamins, and herbs you take. Include the amounts, and when and why you take them. Bring the list or the pill bottles to follow-up visits. Carry your medicine list with you in case of an emergency. Follow up with your primary healthcare provider or urologist as directed: Write down your questionsso you remember to ask them during your visits. Catheter care: Keep your catheter clean, especially the part of the tube that enters your penis. Empty the bag regularly. Urinate regularly: Do not let your bladder become too full before you urinate. Set regular times each day to urinate. Urinate as soon as you feel the need or at least every 3 hours while you are awake. Do not drink liquids before you go to bed. Urinate right before you go to bed. Ask about sexual activity: Sexual activity may help keep your urethra open. Do not get sexually aroused without ejaculating because this may cause your urethra to get blocked. Talk to your primary healthcare provider about sexual activity. Contact your primary healthcare provider if: ?? You have blood in your urine. ?? You have questions or concerns about your condition or care. Seek care immediately or call 911 if: ?? You have a fever, chills, or feel weak and achy. ?? You cannot urinate, or if you have a catheter, no urine is filling the bag. ?? You have a blocked catheter or your catheter falls out. ?? You have lower abdominal pain or back pain that does not go away. ?? You have redness, pain, blood, or drainage where the catheter enters your penis. ?? Your symptoms are getting worse or coming back. ?? Your urine becomes very cloudy and smells bad. ?? 2011 [employer]. Information is for End User's use only and may not be sold, redistributed or otherwise used for commercial purposes. The above information is an child care aide only. It is not intended as medical advice for individual conditions or treatments. Talk to your doctor, nurse or pharmacist before following any medical regimen to see if it is safe and effective for you. 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 Most bacteria that enter your urinary tract are expelled when you urinate. If the bacteria stay in your urinary tract, you may get an infection. Your urinary tract includes your kidneys, ureters, bladder, and urethra. Urine is made in your kidneys, and it flows from the ureters to the bladder. Urine leaves the bladder through the urethra. A UTI is more common in your lower urinary tract, which includes your bladder and urethra. Common symptoms include the following: ?? Urinating more often or waking from sleep to urinate ?? Pain or burning when you urinate ?? Pain or pressure in your lower abdomen ?? Urine that smells bad ?? Leaking urine Seek immediate care for the following symptoms: ?? Urinating very little or not at all ?? Vomiting ?? Shaking chills with a fever ?? Side or back pain that gets worse Contact your healthcare provider if: ?? You have a fever. ?? You do not feel better after 2 days of taking antibiotics. ?? You have questions or concerns about your condition or care. Treatment for a UTI may include medicines to treat a bacterial infection. You may also need medicines to decrease pain and burning, or decrease the urge to urinate often. Prevent a UTI: ?? Urinate when you feel the urge. Do not hold your urine. Urinate as soon as you feel you have to. ?? Drink liquids as directed. Ask how much liquid to drink each day and which liquids are best for you. You may need to drink more fluids than usual to help flush out the bacteria. Do not drink alcohol, caffeine, and citrus juices. These can irritate your bladder and increase your symptoms. Follow up with your healthcare provider as directed: Write down your questions so you remember to ask them during your visits. ?? 2015 [employer]. Information is for End User's use only and may not be sold, redistributed or otherwise used for commercial purposes. All illustrations and images included in CareNotes?? are the copyrighted property of [employer]. or [employer]. The above information is an child care aide only. It is not intended as medical advice for individual conditions or treatments. Talk to your doctor, nurse or pharmacist before following any medical regimen to see if it is safe and effective for you. documented in this encounter Medications at Time of Discharge Medication Sig Dispensed Refills Start Date End Date amitriptyline 100 mg Oral Tablet Take 100 mg by mouth at bedtime. documented as of this encounter ED Notes * Stevie Baez - 05/07/2016 8:53 PM HST Jens Ayala was discharged from the Emergency Department ambulating, accompanied by no one. Pt/guardian verbalized understanding of all discharge instructions. Jens Ayala received: prescription given to patient/family. Patient's condition on discharge:pain level 0=no pain, awake, alert, oriented x 3 and walks with steady gait. BP 138/80 mmHg Pulse 83 Temp(Src) 37.1 ??C (98.7 ??F) (Tympanic) Resp 16 Ht 182.9 cm (6') Wt 72.576 kg (160 lb) BMI 21.70 kg/m2 SpO2 98% * Alfa Strauss RN - 05/07/2016 7:38 PM HST Pt preferred to self cath over getting paulson cath placed. Pt had 800ml out from cath. UA sent to lab * Jl Lee, - 05/07/2016 6:58 PM HST 70 year old male [facility] [id number] ED Date of Service: 05/07/2016 Arrival time:6:56 PM Arrival mode: Car CC: Chief Complaint Patient presents with ??? Retention, Urine Pt c/c of urgency to urinate with difficulty voiding x 1 week HPI: HPI : Urinary retention for a good week plus. In February did have a surgery performed by [facility] doctor. He has self cathed before for up to a year because of prostate issues. No fevers or chills. Worried thathe might need a catheter. Patient had a ultrasound the bladder 5 days ago which showed a large prostate. History Medical History: Past Medical History Diagnosis Date ??? Sleep disorder ??? Restless leg syndrome ??? Pure hypercholesterolemia ??? Kidney disease BPH No LMP for male patient. , unknown, Estimated Date of Delivery: None noted. There is no immunization history on file for this patient. Surgical History: Past Surgical History Procedure Laterality Date ??? Hx kidney/bladder/prostate surgery prostate surgery ??? Hx orthopedic surgery Cannot display prior to admission medications because the patient has not been admitted in this contact. Allergies: Review of patient's allergies indicates no known allergies. Family History: History reviewed. No pertinent family history. Social History: Social History Substance Use Topics ??? Smoking status: Never Smoker ??? Smokeless tobacco: Not on file ??? Alcohol Use: No Drug Use: No Review of Systems Constitutional: Negative for fever and chills. HENT: Negative for congestion and sore throat. Eyes: Negative for pain and visual disturbance. Respiratory: Negative for cough, chest tightness and shortness of breath. Cardiovascular: Negative for chest pain and palpitations. Gastrointestinal: Negative for vomiting and abdominal pain. Endocrine: Negative for polyuria. Genitourinary: Positive for urgency, decreased urine volume and difficulty urinating. Negative for dysuria, hematuria, flank pain, penile swelling and penile pain. Musculoskeletal: Negative for gait problem and neck pain. Skin: Negative for color change and rash. Allergic/Immunologic: Negative for immunocompromised state. Neurological: Negative for weakness and headaches. Hematological: Negative for adenopathy. Does not bruise/bleed easily. Psychiatric/Behavioral: Negative. All other systems reviewed and are negative. Initial vital signs: Most recent vital signs: BP: 131/80 mmHg, Pulse: 92, Respiratory Rate (BPM): 16, Temp: 37.1 ??C (98.7 ??F), SpO2 (%): 98 %, Room Air/Liter Flow (LPM): Room air Physical Exam Constitutional: He is oriented to person, place, and time. He appears well- developed and well-nourished. No distress. HENT: Head: Normocephalic and atraumatic. Mouth/Throat: No oropharyngeal exudate. Eyes: Conjunctivae and EOM are normal. Neck: Normal range of motion. Neck supple. Cardiovascular: Normal rate, regular rhythm and normal heart sounds. Pulmonary/Chest: Effort normal. No respiratory distress. Abdominal: Soft. There is no tenderness. Genitourinary: Mild suprapubic distention but minimally tender. Musculoskeletal: Normal range of motion. He exhibits no edema or tenderness. Neurological: He is alert and oriented to person, place, and time. No cranial nerve deficit. Skin: Skin is warm and dry. No rash noted. Psychiatric: He has a normal mood and affect. Nursing note and vitals reviewed. Procedures: Procedures Data Reviewed Consults: None Imaging: None Emergency Physician interpretation: None No results found for this visit on 05/07/16. Lab: Results for orders placed or performed during the hospital encounter of 05/07/16 1. URINALYSIS, COMPLETE, REFLEX TO C & S Result Value Color YELLOW Appearance HAZY Specific [place] 1.025 pH 5.5 Protein 100 (H) Glucose NEG Ketones NEG Urobilinogen 0.2 Bilirubin NEG Blood LARGE (H) Leukocyte Esterase MOD (H) Nitrite NEG WBC >100 (H) RBC 21-50 (H) Bacteria OCC Urine Culture/Sensitivity REFER TO THE MICROBIOLOGY SECTION OF REPORT ED Course/Medical Decision Making: MDM Bladder scan showed a liter plus of fluid. Paulson catheter has been ordered. He has had his primary doctor take this out in the past for few days. He also has a urologist that he is due to see again in about 10 days but can try to get earlier.Patient declined a Paulson catheter wanted to self cath. He was able to get 800 cc out. Recommended to continue as needed at home and see the urologist. UA positive, levaquin given and RX for 10 days Clinical Impression: Urine retention (primary encounter diagnosis) Uti (urinary tract infection), bacterial Disposition: Discharge Procedures performed during this ED visit: None Condition on Discharge: Improved No discharge procedures on file. New Prescriptions LEVOFLOXACIN (LEVAQUIN) 500 MG ORAL TABLET Take 1 Tab by mouth every 24 hours. Follow up provider: Jens Esposito MD [phone] [phone] next week and see urologist when able JL LEE Physician 05/07/2016 20:32 documented in this encounter Plan of Treatment Not on file documented as of this encounter Procedures Procedure Name Priority Date/Time Associated Diagnosis Comments URINALYSIS, COMPLETE, REFLEX TO C & S STAT 05/07/2016 7:30 PM HST URINE CULTURE Routine 05/07/2016 7:30 PM HST documented in this encounter Results * URINE CULTURE (05/07/2016 7:30 PM HST) Pathologist [facility] Collection Method CLEAN CATCH [facility] Report Status FINAL [facility] Urine Culture Details RESULT DLS CENTRAL LAB Comment:NO GROWTH AT 2 DAYS 05/07/2016 7:30 PM HST 05/07/2016 7:39 PM HST Jl Lee DO MICROBIOLOGY-ORDERAB LE LAB [facility] [phone] [facility] [place] [address] [facility] [phone] [place] [address] * (ABNORMAL) Urinalysis Reflex To C&S (05/07/2016 7:30 PM HST) Pathologist [facility] Color YELLOW DLS [facility] Appearance HAZY DLS [facility] Specific [place] 1.025 1.005 - 1.030 [facility] pH 5.5 5 - 7.5 [facility] Protein 100(H) NEGATIVE mg/dl [facility] Glucose NEG NEGATIVE [facility] Ketones NEG NEGATIVE [facility] Urobilinogen 0.2 0.1 - 1.0 mg/dl [facility] Bilirubin NEG NEGATIVE [facility] Blood LARGE(H) NEGATIVE [facility] Leukocyte Esterase MOD(H) NEGATIVE [facility] Nitrite NEG NEGATIVE [facility] WBC >100(H) 0-5 WBC/hpf hpf [facility] RBC 21-50(H) 0-2 RBC/hpf hpf [facility] Bacteria OCC NONE [facility] Urine Culture/Sensiti vity REFER TO THE MICROBIOLOGY SECTION OF REPORT [facility] Urine (Urine, Clean Catch) 05/07/2016 7:30 PM HST 05/07/2016 7:59 PM HST Jl Lee DO URINALYSIS-ORDERABLE [facility] [phone] [facility] [place] [address] [facility] [phone] [place] [address] documented in this encounter Visit Diagnoses Diagnosis Urine retention- Primary Retention of urine, unspecified UTI (urinary tract infection), bacterial Urinary tract infection, site not specified documented in this encounter Administered Medications Inactive Administered Medications - up to 3 most recent administrations Medication Order MAR Action Action Date Dose Rate Site levofloxacin tab 500 mg (NF) Oral, DAILY (0900), First dose on Thu05/07/16 at 2031, Until Discontinued, STAT, Will this medication be given during [facility] inpatient visit or infusion treatment? No Given 05/07/2016 8:49 PM HST 500 mg documented in this encounter Active and Recently Administered Medications Times are shown in HST. Scheduled Medication Order 05/05/2016 05/06/2016 05/07/2016 levofloxacin tab 500 mg (NF) (CANCELED) Oral, DAILY (0900), First dose on Thu05/07/16 at 2031, Until Discontinued, STAT, Will this medication be given during [facility] [place] inpatient visit or infusion treatment? No 2048 (Given - Provid er: Stevie Baez) documented in this encounter
--- OUTSIDE RECORDS SUMMARY | 2024-03-31 04:10 | XMS_ITS | Encounter Summary ---
Author Organization [facility] Address [address] [place] [address] Care Team Providers Care Lamp Decorator Name Role Phone Unavailable Primary Care Provider Unavailabl e Reason for Referral * Referral (Routine) - Closed Specialty Diagnoses / Procedures Referred By Tram griffin Referred To Contact Diagnoses Chronic pain of left knee Injury while running Procedures Outpatient Physical Therapy Evaluate and Treat Zbigniew Saavedra MD [phone] [address] [facility] Physical Therapy [phone] [facility] [address] Referral ID Status Reason Start Date Expiration Date Visits Re quested Visits Authorized [id number] Closed 01/12/2020 10 10 Reason for Visit * Reason Comments Followup Left knee pain.Aleena w MRI done at [facility]. Encounter Details Date Type Department Care Team (Late st Contact Info) Description 01/11/2020 2:30 PM HST Office Visit [facility] [phone] [facility] [address] [facility] [place] [address] Zbigniew Saavedra MD [id number] [place] [address] Chronic pain of left knee (Primary Dx); Injury while running Discharge Disposition: D/C Home, [...] Sign Reading Time Taken Comments Blood Pressure 155/89 01/11/2020 2:58 PM HST Pulse 93 01/11/2020 2:58 PM HST Temperature 36.8 ??C (98.3 ??F) 01/11/2020 2:58 PM HS T Respiratory Rate 20 01/11/2020 2:58 PM HST Oxygen Saturation 97% 01/11/2020 2:58 PM HST Inhaled Oxygen Concentration - - Weight - - Height - - Body Mass Index - - documented in this encounter Progress Notes * Zbigniew Saavedra MD - 01/11/2020 2:30 PM HST CLINIC NOTE Chief Complaint: No chief complaint on file. Subjective: Jens Ayala is a 74 year old male who had no chief complaint listed for this encounter.. Patient presents for ongoing care of his left knee. He reports significant and persistent pain since his last evaluation. Most pain is in the popliteal area but is also noted more in the distal hamstrings as well. He is unable to run. He has had no swelling at the joint. No pain either medially or laterally. He did report episodes of mild anterior knee pain that was new. No redness warmth or acute findings. No bruising bursitis or other skin abnormality. He does not have classic radicular features nor significant numbness or tingling but does have a significant spine history upon further questioning. At one point remotely had previous injection and consideration of surgical intervention but did not proceed. No neurologic decline reported. No significant back pain. He has no edema or circulatory change. No peripheral vascular disease. Presents for test review and clinical correlation. No Known Allergies [...] file Gets together: Not on file Attends anabaptism service: Not on file Active member of [...] on file. Outpatient Encounter Medications as of 01/11/2020 Medication Sig Dispense Refill ??? eszopiclone (LUNESTA) [...] facility-administered encounter medications on file as of 01/11/2020. Review of Systems: Review of systems unremarkable for any major or significant interval change in his health. No recent colds illnesses hospitalizations etc. No signs of infection. Objective: There were no vitals taken for this visit. Physical Examination: (If abnormal, please describe) Physical examination shows no effusion or soft tissue swelling. He does resist full extension and reports distal thigh and popliteal pain. He has less tenderness along the joint line and currently Adi's maneuver is negative. The knee is grossly stable. Extensor mechanism is intact. No overt crepitation. Perhaps mild lateral retinacular tenderness but nothing dramatic. I can flex and rotate his hip without reproduction of symptoms. It should be noted both straight leg raise and flip test are positive for reproducing his symptoms. Is difficult to assess whether this is hamstring tightness or a positive radicular test. Skin around the left knee is unremarkable and benign. The patient has no overt signs of DVT and has excellent distal circulation. There is no focal motor or sensory deficit. Testing: Patient's MRI images and report were personally reviewed. This shows a very trace effusion. There is some increased signal in the lateral facet of the patella of unknown significance. No fracture or evidence of dislocation. There is increased signal within the body of the meniscus but no evidence of meniscal tear itself. No extrusion of the meniscus. No significant degenerative change. No ligament injury. No stress fracture evident. Assessment: 1. Chronic pain of left knee 2. Injury while running Left knee pain especially in the popliteal distal hamstring region and pain with extension. By examand MRI findings there is no obvious internal derangement of significance. Patient understands lower grade pathology such as synovitis may escape detection. Plan: In the absence of obvious MRI findings that would support internal derangement I would not recommend rushing into arthroscopic surgery. He understands arthroscopy under the circumstance would be largely exploratory. He does have somewhat nerve tension signs and especially may be significant given his history of back problems. Despite the fact he does not have significant back pain this still may be causal. Before considering arthroscopic surgery would recommend initial treatment of his back and see if conservative management including therapy, heat stretching etc. along with relative rest may help. I will place him on a custom prednisone pack and he will continue with NSAIDs as medically allowed. Mayrequire lumbar x-rays or possibly MRI and referral to a pain clinic for diagnostic/therapeutic epidu ral injections. He understands his diagnosis is not definitive and further recommendations will likely follow based on his response. Physical therapy prescription provided and home exercises emphasized. Custom prednisone prescribed with usual precautions and warnings. No orders of the defined types were placed in this encounter. Follow-up and Disposition ?? Return if symptoms worsen or fail to improve. Zbigniew Saavedra MD documented in this encounter Plan of Treatment Scheduled Orders Name Type Priority Associated Diagnoses Orde r Schedule Outpatient Physical Therapy Evaluate and Treat Rehabilitation Routine Chronic pain of left knee Injury while running Expected: 01/12/2020 (Approximate), Expires: 01/10/2021 documented as of this encounter Visit Diagnoses Diagnosis Chronic pain of left knee- Primary Pain in joint, lower leg Injury while running documented in this encounter
--- OUTSIDE RECORDS SUMMARY | 2024-03-31 04:10 | XMS_ITS | Encounter Summary ---
Author Organization [facility] Address [address] [place] [address] Care Team Providers Care Hearing Aid Technician Name Role Phone Unavailable Primary Care Provider Unavailabl e Reason for Referral * Referral (Routine) - Closed Specialty Diagnoses / Procedures Referred By Contac t Referred To Contact Diagnoses Muscle strain of lower leg, right, subsequent encounter Procedures Outpatient Physical Therapy Evaluate and Treat Jens Esposito MD [phone] [address] [facility] [phone] [place] [address] Referral ID Status Reason Start Date Expiration Date Visits Re quested Visits Authorized [id number] Closed 11/04/2019 10 10 Reason for Visit * Referral (Routine) - Closed Specialty Diagnoses / Procedures Referred By Contac t Referred To Contact Diagnoses Muscle strain of lower leg, right, subsequent encounter Procedures Outpatient Physical Therapy Evaluate and Treat Jens Esposito MD [phone] [facility] [address] [place] [address] [facility] [phone] [place] [address] Referral ID Status Reason Start Date Expiration Date Visits Re quested Visits Authorized [id number] Closed 11/04/2019 10 10 Encounter Details Date Type Department Care Team (Late st Contact Info) Description 12/27/2019 10:30 AM HST - 12/27/2019 11:59 PM HST Hospital Encounter [facility] Outpatient Rehab [phone] [facility] [place] [address] Jens Esposito MD [phone] [facility] [address] [facility] [phone] Jenn Brewer, PT Discharge Disposition: Still A [...] Progress Notes * Jenn Brewer, PT - 12/27/2019 10:30 AM HST OUTPATIENT PHYSICAL THERAPY TREATMENT NOTE Date of Service: 12/27/2019 Visit #: 09/09 Treatment Start Time: 1030 1:1 Direct Physical Therapist Contact: Yes SUBJECTIVE L LE pain posterior knee Pain Scale: 10 OBJECTIVE Treatment: Manual Therapy: STM L knee musculature to decrease pain and tension Therapeutic Exercises Exercise #1: quad set 5x 5 sec Hamstring Curl: prone 10x Heel Raise: demo Hip Abduction: sidelying 10x Hip Adduction: supine with pillow 5x 5 sec Long Arc Quad: 10x Short Arc Quad: 10x Straight Leg Raise: just off mat 5x Hip Extension: prone 5x Knee Extension: 20 sec Knee Flexion: heel slide 10x Gastrocnemius Stretch: 30 sec Plantar Fascia Stretch: demo/review Patient Education: Daily habits;Home exercise program handout;Rehabilitation process;Proper postureand body mechanics;Pathology ASSESSMENT See IE. L knee decreased strength and ROM, antalgic gait with pain report. PLAN See IE. Focus on L Knee strength, ROM, gait Today's Treatment Total Treatment Time (Minutes): 15 Timed Code Treatment (Minutes): 15 minutes Therapeutic Exercise (88781): 1 Unit Therapeutic Exercise (Minutes): 15 Signed by: Jenn Brewer PT documented in this encounter Consult Notes * Jenn Brewer PT - 12/27/2019 10:30 AM HST PLAN OF CARE CERTIFICATION Electronically cosign OR manually sign below to certify this Rehab plan of care: o As is o With Modifications*: * For electronic modifications, use attestation Physician / NPP Signature: Date: Physician / NPP Name: Jens Esposito MD OUTPATIENT PHYSICAL THERAPY INITIAL EVALUATION Name: Jens Ayala : 1945 Date of Service: 12/27/2019 Referring Physician / NPP: Jens Esposito MD Referral / Medical Diagnosis: Muscle strain of lower leg, right, subsequent encounter [S86.241D] Treatment Diagnosis: L knee pain [M25.562], L knee stiffness [M25.662], Difficulty walking [R26.2] ASSESSMENT / REASON FOR SKILLED THERAPY Patient is a 74 year old male presenting with pain, weakness, decreased range of motion and alteredgait status post injury 10/15/19 while running/jumping. He is alert and oriented x 4 and agrees to therapy. 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 12/27/2019 [facility] Goals (see Duration below) 1) Pt to demonstrate gait with equal step and stride length, toe off with full extension L LE to normalize gait pattern 2) Pt will report pain posterior knee complex less than 4/10 with activity in order to increase function 3) Pt will improve function as seen by increase in LEFS by at least 10% (current 54%) PROGNOSIS/REHABILITATION POTENTIAL:Good PLAN OF TREATMENT: Frequency: 1 x/week Duration: 10 visits by 03/26/2020 Interventions: Therapeutic exercise, Therapeutic activity, Neuromuscular re- education, Manual therapy, Home exercise program instruction, Patient/caregiver education, Body mechanics/posture training,Self-care/home management Gait Training Recommendations: Initiate above treatment plan Thank you for the opportunity to work with your patient. Please call me at [phone] if you haveany concerns. Jenn Elisabet Brewer, PT SUBJECTIVE Patient is a 74 year old male with chief complaints of left knee pain post running/sprinting on thetrack and attempt at high jump activity. He states he originally injured the knee 2 years ago when gardening aggressively and needed to use a cane for about 4 months. He also states he had an episodeof plantar fasciitis bilaterally about 1.5 years ago but now uses Pryor shoes with built in orthotics. He states his pain levels vary between 2-4/10. Date of Onset: 10/15/19 Current functional limitation(s): standing long periods, walking even 2 blocks, running, lifting/carrying objects, squatting, rolling in bed Prior to injury, patient was able to perform the above listed functions with no restrictions. Preferred Language: Canadian [1] Patient / Caregiver Stated Goals: Decreased pain, increased function 12/27/2019 Pain Location: L knee Max /10 Min 2/10 Current 12/08 Imaging: No results found. Allergies: Patient has no known allergies. Past Medical History: Diagnosis Date ??? Kidney disease BPH ??? Pure hypercholesterolemia ??? Restless leg syndrome ??? Sleep disorder Past Surgical History: Procedure Laterality Date ??? HX KIDNEY/BLADDER/PROSTATE SURGERY prostate surgery ??? HX ORTHOPEDIC SURGERY Current Outpatient Medications Medication Sig Dispense Refill ??? ATORVASTATIN CALCIUM (ATORVASTATIN PO) Take by mouth. ??? eszopiclone (LUNESTA) 3 mg Oral Tablet ??? tamsulosin 0.4 mg Oral Capsule, Sustained Release 24HR Take 0.4 mg by mouth at bedtime. ??? METHYLPHENIDATE HCL (METHYLPHENIDATE PO) Take by mouth. ??? trimethoprim/sulfamethoxazole (BACTRIM DS) 160/800 mg Oral Tablet Take 1 Tab by mouth every 24 hours. 5 Tab 0 ??? amitriptyline 100 mg Oral Tablet Take 100 mg by mouth at bedtime. ??? escitalopram oxalate 20 mg Oral Tablet Take 20 mg by mouth every morning. ??? HYDROcodone/acetaminophen 7.5-325 mg Oral Tablet Take 1 Tab by mouth every 8 hours as needed for Pain. ??? levofloxacin (LEVAQUIN) 500 mg Oral Tablet Take 1 Tab by mouth every 24 hours. 10 Tab 0 No current facility-administered medications for this encounter. OBJECTIVE Observations Additional Observation Details No edema noted, no increased heat or redness Palpation Left Tenderness of the distal biceps femoris, distal semimembranosus, distal semitendinosus, lateral gastrocnemius and medial gastrocnemius. Neurological Testing Sensation Knee Left Knee Intact: light touch Right Knee Intact: light touch Active Range of Motion Left Knee Flexion: 140 degrees Extension: 10 degrees with pain Right Knee Normal active range of motion Passive Range of Motion Left Knee Flexion: 140 degrees Extension: 10 degrees with pain Right Knee Normal passive range of motion Patellar Mobility Left Knee Patellar tendons within functional limits include the medial. Right Knee Patellar tendons within functional limits include the medial. Patellar Static Positioning Left Knee: WFL Right Knee: WFL Strength/Myotome Testing Left Knee Flexion: 4+ Prone flexion: 4 Extension: 4- Quadriceps contraction: good Right Knee Normal strength Tests Left Knee Negative anterior drawer, patellar compression, posterior drawer, valgus stress test at 30 degrees and varus stress test at 30 degrees. Ambulation Observational Gait Gait: antalgic Increased left swing time. Decreased walking speed, stride length, left stance time and left step length. Left foot contact pattern: heel to toe Left arm swing: within functional limits Base of support: normal Additional Observational Gait Details Limited extension L knee during toe off Physiological factors affecting the patient's clinical presentation include pain, and are evolving & changing Functional Outcome Scales Evaluation from 12/27/2019 in [facility] Out[facility] Lower Extremity % of Maximum Function 54 Charge: PT EVALUATION - LOW COMPLEXITY (22093): PT Evaluation - Low Complexity (28657) OUTPATIENT PHYSICAL THERAPY TREATMENT NOTE Visit #: 09/09 Treatment Start Time: 1030 1:1 Direct Physical Therapist Contact: Yes Treatment: Manual Therapy: STM L knee musculature to decrease pain and tension Therapeutic Exercises Exercise #1: quad set 5x 5 sec Hamstring Curl: prone 10x Heel Raise: demo Hip Abduction: sidelying 10x Hip Adduction: supine with pillow 5x 5 sec Long Arc Quad: 10x Short Arc Quad: 10x Straight Leg Raise: just off mat 5x Hip Extension: prone 5x Knee Extension: 20 sec Knee Flexion: heel slide 10x Gastrocnemius Stretch: 30 sec Plantar Fascia Stretch: demo/review Patient Education: Daily habits;Home exercise program handout;Rehabilitation process;Proper postureand body mechanics;Pathology ASSESSMENT See IE. L knee decreased strength and ROM, antalgic gait with pain report. PLAN See IE. Focus on L Knee strength, ROM, gait Today's Treatment Total Treatment Time (Minutes): 15 Timed Code Treatment (Minutes): 15 minutes Therapeutic Exercise (78698): 1 Unit Therapeutic Exercise (Minutes): 15 Signed by: Jenn Brewer PT documented in this encounter Plan of Treatment Scheduled Orders Name Type Priority Associated Diagnoses Orde r Schedule Outpatient Physical Therapy Evaluate and Treat Rehabilitation Routine Muscle strain of lower leg, right, subsequent encounter 1 Occurrences starting 12/27/2019 until 12/27/2019 documented as of this encounter Visit Diagnoses Diagnosis Muscle strain of lower leg, right, subsequent encounter documented in this encounter
--- OUTSIDE RECORDS SUMMARY | 2024-03-31 04:10 | XMS_ITS | Encounter Summary ---
Author Organization [facility] Address [address] [place] [address] Care Team Providers Care Supply Chain Engineer Name Role Phone Unavailable Primary Care Provider Unavailabl e Encounter Details Date Type Department Care Team (Late st Contact Info) Description 05/01/2020 Orders Only [facility] Orthopedics Clinic [id number] [facility] [address] [place] [address] Stephy Monet Pain of right heel (Primary Dx) Social History Tobacco Use Types [...] of this encounter Results * XRAY - HEEL [...] also noted. Narrative 05/02/2020 11:20 AM HST [facility] Specialty [facility] - Orthopedic Radiology Report Zbigniew Saavedra MD XRAY-ORDERABLE documented in this encounter Visit Diagnoses Diagnosis Pain of right heel- Primary Pain in limb Pain of right heel Pain in limb documented in this encounter
--- OUTSIDE RECORDS SUMMARY | 2024-03-31 04:10 | XMS_ITS | Encounter Summary ---
Author Organization [facility] Address [address] [place] [address] Care Team Providers Care Couture Alterations Dressmaker Name Role Phone Unavailable Primary Care Provider Unavailabl e Reason for Visit * Auth/Cert Specialty Diagnoses / Procedures Referred By Tram griffin Referred To Contact Referral ID Status Reason Start Date Expiration Date Visits Re quested Visits Authorized [id number] 1 1 Encounter Details Date Type Department Care Team (Late st Contact Info) Description 02/07/2020 11:17 AM HST - 02/07/2020 11:59 PM T Hospital Encounter [facility] [address] [facility] [place] [address] Referring, Doctor, DO NOT change name. DO NOT not update address. If you do not know how to create a new referring physician, contact your rubber tire and tubes supervisor. Jenn Brewer, PT Discharge Disposition: Still [...] Progress Notes * Jenn Brewer, PT - 02/07/2020 11:30 AM HST OUTPATIENT PHYSICAL THERAPY TREATMENT NOTE Date of Service: 02/07/2020 Visit #: 03/09 Treatment Start Time: 1130 1:1 Direct Physical Therapist Contact: Yes SUBJECTIVE L knee improving, doing Ok even off meds now. OBJECTIVE Treatment: Manual Therapy: STM L knee musculature to decrease pain and tension, focus on posterior region, foam roll to IT band. Modalities: CUS 1.2 w/cm2, 1 mHz, to posterolateral knee x 5 min Therapeutic Exercises Exercise #1: recumbant bike 5 [...] for balance Exercise #7: cone tap to chair height 10x Hamstring Curl: prone 10x, with 3 lb wt 10x Heel Raise: 20x standing on aeromat Hip Abduction: cybex 7 pl 2x 10 Hip Adduction: cybex 7 pl 2x 10 Step Down: 6 in 10x Step Up: 6 in 20x Tilt Board: 10x TKE: orange tband 2x 10 Gastrocnemius Stretch: 2x 30 sec Hamstring Stretch: 30 sec supine with strap Plantar Fascia Stretch: 2x 30 sec Patient Education: Daily habits;Home exercise program handout;Review Home exercise program;Rehabilitation process ASSESSMENT Pt continues to have very tight IT band L, pain in posterolateral knee, tolerates PRE, progressing in strength, ROM WNL PLAN Focus on L knee strength, ROM, gait, single leg balance Today's Treatment Total Tx Time (minutes): 55 Timed Code Tx (minutes): 55 Therapeutic Exercise (Minutes): 45 Manual Therapy (Minutes): 10 Other Charges Charge ID Procedure Code Description Qty. Modifiers Plumbing Assembler Installer User Diagnosis [id number] [facility] PT EXERCISE 15 MIN 3 Jenn Brewer PT [id number] [facility] PT MANUAL THERAPY 15 MIN 1 Jenn Brewer PT Signed by: Jenn Brewer PT documented in this encounter Plan of Treatment Not on file documented as of this encounter Visit Diagnoses Not on filedocumented in this encounter
--- OUTSIDE RECORDS SUMMARY | 2024-03-31 04:10 | XMS_ITS | Encounter Summary ---
Author Organization [facility] Address [address] [place] [address] Care Team Providers Care Area Captain Name Role Phone Unavailable Primary Care Provider Unavailabl e Reason for Visit * Auth/Cert Specialty Diagnoses / Procedures Referred By Tram griffin Referred To Contact Referral ID Status Reason Start Date Expiration Date Visits Re quested Visits Authorized [id number] 1 1 Encounter Details Date Type Department Care Team (Late st Contact Info) Description 01/31/2020 10:27 AM HST - 01/31/2020 11:59 PM T Hospital Encounter [facility] Outpatient Rehab [id number] [facility] [place] [address] Referring, Doctor, DO NOT change name. DO NOT not update address. If you do not know how to create a new referring physician, contact your sort supervisor. Jenn Brewer M, PT Discharge Disposition: Still A Patient Social [...] Progress Notes * Jenn Brewer, PT - 01/31/2020 10:30 AM HST OUTPATIENT PHYSICAL THERAPY TREATMENT NOTE Date of Service: 01/31/2020 Visit #: 01/07 Treatment Start Time: 0 1:1 Direct Physical Therapist Contact: Yes SUBJECTIVE The knee is improving, minimal pain last night increased some this morning. I would like to try jogging for short distances Pain Scale: 09/09 OBJECTIVE Treatment: Manual Therapy: STM L knee musculature to decrease pain and tension, focus on posterior region, foam roll to IT band. Therapeutic Exercises Exercise #1: nu step 5 min Exercise #2: tandem stand aeromat 1 min Exercise #3: BOSU stand 1 min Hamstring Curl: prone 10x, with 3 lb [...] Patient Education: Daily habits;Rehabilitation process;Review Home exercise program ASSESSMENT Pt has increased function, decreased pain report, continues to have tight L leg musculature especially IT band, quads, hams. PLAN Focus on L knee strength, ROM, gait Today's Treatment Total Tx Time (minutes): 60 Timed Code Tx (minutes): 60 Therapeutic Exercise (Minutes): 45 Manual Therapy (Minutes): 15 Other Charges Charge ID Procedure Code Description Qty. Modifiers Hammerer Helper User Diagnosis [id number] [facility] PT EXERCISE 15 MIN 3 Jenn Brewer PT [id number] [facility] PT MANUAL THERAPY 15 MIN 1 Jenn Brewer PT Signed by: Jenn Brewer PT documented in this encounter Plan of Treatment Not on file documented as of this encounter Visit Diagnoses Not on filedocumented in this encounter
[2024-03-31 12:30] LABS: ALT 29 U/L (16-63); AST 22 U/L (15-37); Albumin 3.6 g/dL (3.4-5.0); Alkaline Phosphatase 121 U/L (46-116); Anion Gap 8.2 mmol/L (3-11); BUN 21 mg/dL (7-18); Bilirubin, Total 0.36 mg/dL (0.2-1.0); CO2 27.8 mmol/L (21.0-32.0); Calcium 8.8 mg/dL (8.5-10.1); Calculated LDL 60 mg/dL (<100); Chloride 107 mmol/L (98-107); Cholesterol 162 mg/dL (<200); Estimated GFR 77.52 (mL/min/1.73m2); Glucose 121 mg/dL (74-106); HDL Cholesterol 89 mg/dL (40-60); Potassium 4.2 mmol/L (3.5-5.1); Sodium 143 mmol/L (136-145); Total Protein 6.3 g/dL (6.4-8.2); Triglyceride 69 mg/dL (<150)
== END 2024-03-31 04:04 | disposition home or self-care (01) ==
LOC: LBO 04:05
PROVIDERS: PCP Family Medicine; Visit Provider Family Medicine
DX: E78.5 Hyperlipidemia, unspecified; Z80.42 Family history of malignant neoplasm of prostate
CPT/HCPCS: 36415; 80053; 80061; 84153

== ENCOUNTER 2024-04-27 03:48 | Outpatient (CLI) | payer MEDICARE, SELFPAY ==
--- OUTSIDE RECORDS SUMMARY | 2024-04-27 03:50 | XMS_ITS | Encounter Summary ---
Author Organization [facility] [place] [address] Care Team Providers Care Rod Mill Tender Name Role Phone Collin Aburto MD Primary Care Provider [phone] Encounter Details Date Type Department Care Team (Late st Contact Info) Description 08/08/2011 Abstract Neurology at [place] [phone] Stevie Altman MD [facility] [place] [address] Social History Tobacco Use Types Packs/Day Years [...] as of this encounter Plan of Treatment Upcoming Encounters Date Type Department Care Team (Late st Contact Info) Description 09/20/2024 11:30 AM EST Office Visit Podiatry at [place] [phone] Nadege Lundy DPM [facility] [place] [address] documented as of this encounter Visit Diagnoses Not on filedocumented in this encounter Care Teams Rod Mill Tender Relationship Specialty Start Date End Date Collin Aburto MD [address] [place] [address] PCP - General 07/23/10 documented as of this encounter
--- OUTSIDE RECORDS SUMMARY | 2024-04-27 03:50 | XMS_ITS | Encounter Summary ---
Author Organization [facility] [place] [address] Care Team Providers Care Speech Instructor Name Role Phone Collin Aburto MD Primary Care Provider [phone] Encounter Details Date Type Department Care Team (Late st Contact Info) Description 06/23/2015 [place] [phone] Jacqueline Bonner MD [facility] [place] [address] Social History Tobacco Use Types Packs/Day Years [...] of Cipro that was prescribed at the [facility] ED on 2015. He is going on a trip to [place] soon and is worried about having another UTI. He denies nausea, vomiting, hematuria or flank pain, He is going to drop off a urine sample for urine culture at [facility]. In the meantime,I have days of Cipro 500 mg BID. He understands the plan and all questions were answered to his satisfaction. Jacqueline Bonner MD Urology PGY-2 Pager: [phone] documented in this encounter Plan of Treatment Upcoming Encounters Date Type Department Care Team (Late st Contact Info) Description 09/20/2024 11:30 AM EST [place] [address] Nadege Lundy DPM [facility] [place] [address] documented as of this encounter Visit Diagnoses Not on filedocumented in this encounter Care Teams Speech Instructor Relationship Specialty Start Date End Date Collin Aburto MD [address] [place] [address] PCP - General 07/23/10 documented as of this encounter
--- OUTSIDE RECORDS SUMMARY | 2024-04-27 03:50 | XMS_ITS | Encounter Summary ---
Author Organization [facility] Address [facility] [place] [address] Care Team Providers Care Technical Aide Name Role Phone Collin Aburto MD Primary Care Provider [phone] Encounter Details Date Type Department Care Team (Late st Contact Info) Description 08/17/2023 Telephone [facility] [place] [phone] Harriet Acharya Social History Tobacco Use Types Packs/Day Years Used Date Smoking Tobacco: Never Assessed Sex and Gender Information Value Date Recorded Sex Assigned at Not on file Gender Identity Not on file Sexual Orientation Not on file documented as of this encounter Miscellaneous Notes * Telephone Encounter - Harriet Acharya - 08/17/2023 12:12 PM EST 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 He has a referral to [facility] and they are scheduling into October. We [...] pain provider whether that be us or [facility]. I advised that he could have a referral sent to us and we could review. documented in this encounter Plan of Treatment Upcoming Encounters Date Type Department Care Team (Late st Contact Info) Description 09/20/2024 11:30 AM EST [place] [address] Nadege Lundy DPM [facility] [place] [address] documented as of this encounter Visit Diagnoses Not on filedocumented in this encounter Care Teams Technical Aide Relationship Specialty Start Date End Date Collin Aburto MD [address] [place] [address] PCP - General 07/23/10 documented as of this encounter
--- OUTSIDE RECORDS SUMMARY | 2024-04-27 03:50 | XMS_ITS | Data Portability ---
Author Organization [facility] Address [address] [place] [address] Assessment No assessment recorded. Plan of Treatment Reminders Order Date Submit Date Provider Last Modified By Organization Details Last Modified Time Details Appointments None recorded. Lab None recorded. Referral None recorded. Procedures None recorded. Surgeries None recorded. Imaging None recorded. Medication Orders pregabalin 75 mg capsule 2022 023 [id number] [place], [address], 3 23:14:34 Patient TargetsNo targets recorded. Patient Instructions Encounter Date Encounter Id Patient Instructions Last Modified By Organization Details Last Modified Time 07/18/2023 [id number] toenail fungus: care instructions Not available 07/18/2023 12:39:50 Reason for Referral Pain Management Referral for Pain Referring Physician: Jose David Terrazas, Family Medicine, Encounter Date: 08/12/2023 Problems Name Problem SNOMED Code Status Onset Date Resolution Date Notes Provider Name and Address Organization Details Recorded Time Benign prostati c hyperpla oly 446699020 Active 2017 Problem Code: N40.0; Problem Code Type: ICD-10; MANUEL AMATO, [facility] 3 07:35:52 Hyperlip idemia 56887932 Active 2017 Problem Code: E78.5; Problem Code Type: ICD-10; MD [address], [place], [address] , [facility] 3 23:08:52 Anxiety 24641279 Active 2017 Problem Code: F41.8; Problem Code Type: ICD-10; JOSE DAVID TERRAZAS MD [address] [place], [address] , [facility] 3 23:08:55 Insomnia 332064861 Active 2017 Problem Code: G47.00; Problem Code Type: ICD-10; MANUEL AMATO, [facility] 3 07:35:52 Attentio n deficit hyperact ivity disorder , predomin antly inattent ally type 60841128 Active 2017 Problem Code: F90.0; Problem Code Type: ICD-10; MANUEL AMATO, [facility] 3 07:35:53 Tinnitus 44249633 Active 2017 Problem Code: H93.19; Problem Code Type: ICD-10; MANUEL AMATO, [facility] 3 07:35:53 Restless legs 79885792 Active 2017 Problem Code: G25.81; Problem Code Type: ICD-10; MANUEL AMATO, [facility] 3 07:35:53 Other idiopath ic peripher al neuropat hy NOS Active 201810/15/19 19 - Comments only - Dimas Morales - - Well compensa vera/Asym ptomatic . - No recent flare up. - We will continue to monitor. - Observe for worsenin g signs and symptoms . MANUEL AMATO, [facility] 3 07:35:52 Low back pain 735654336 Active 201810/15/19 19 - Comments only - Dimas Morales - - Stable/W ell controll ed. - Has been careful with ADLs. - Advised to maintain positive outload. - Offered to try gabapent in, but he declined . - Observe for worsenin g signs and symptoms . Problem Code: M54.5; Problem Code Type: ICD-10; BRIAN RENTERIA MA null, [facility] 3 07:35:53 Adult health examinat ion Active 2018 Problem Code: Z00.00; Problem Code Type: ICD-10; MD Nicki [address], [address] 3 23:11:27 Prostate specific antigen above referenc e range 062552050 Active 2022 Problem Code: R97.20; Problem Code Type: ICD-10; MANUEL AMATO, [facility] 3 07:35:53 Opioid dependen ce 97330760 Active 2022 Problem Code: F11.20; Problem Code Type: ICD-10; MD [address]i [address], [place] [address] , [facility] 3 23:08:47 Benzodia zepine dependen ce 198088661 Active 2022 BRIAN RENTERIA MA null, [facility] 3 07:35:52 Adjustme nt disorder 02215027 Active 2022 Problem Code: F43.20; Problem Code Type: ICD-10; MANUEL AMATO, [facility] 3 07:35:52 Chondrom alacia of left patella 86361037723 9106 Active Problem Code: M22.42; Problem Code Type: ICD-10; BRIAN RENTERIA MA null, [facility] 3 07:35:53 Prediabe ronit 399350996 Active 2022 Problem Code: R73.03; Problem Code Type: ICD-10; MD Nicki [address], [address] 3 23:08:49 Anxiety disorder 438066694 Completed 201702/05/2023 Problem Code: F41.9; Problem Code Type: ICD-10; Not Available [facility] 3 05:08:34 Acute upper respirat ory infectio n 25642037 Completed 202203/11/2023 Problem Code: J06.9; Problem Code Type: ICD-10; MD [address], [place], [address] , [facility] 3 23:10:51 Pain of left knee joint 92354862244 4107 Completed 201703/30/2018 Problem Code: M25.562; Problem Code Type: ICD-10; Not Available [facility] 3 05:08:35 Major depressi on, single episode 61297894 Completed 201705/27/2023 Problem Code: F32.9; Problem Code Type: ICD-10; Not Available [facility] 3 05:08:35 Cough 73474323 Completed 201709/10/2018 Problem Code: R05; Problem Code Type: ICD-10; Not Available [facility] 3 05:08:35 Epidermo id cyst of skin 647299280 Completed 201702/05/2023 Problem Code: L72.3; Problem Code Type: ICD-10; Not Available [facility] 3 05:08:35 Bilatera l hyperacu sis of ears 13565097069 06095 Completed 201704/06/2023 Problem Code: H93.233; Problem Code Type: ICD-10; Not Available [facility] 3 05:08:35 Pain of left elbow joint 86206062831 567322 Completed 201703/30/2018 Problem Code: M25.522; Problem Code Type: ICD-10; Not Available [facility] 3 05:08:35 Plantar fasciiti s 271841295 Active [address], [place], [address] , [facility] 23:11:33 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 Please review these documents and add these problems to the patient's chart manually as needed. Problem Notes None recorded. Medical Equipment None Reported. Allergies No known drug allergies Medications Name Sig Start Date Stop Date Status Note LastModified by Organization Details LastModified Time cyclobenz aprine 10 mg tablet Take 1 tab 2 times a day 10/15 completed Not Available Not Available Not Available Flomax 0.4 mg capsule Take 1-2 tabs by mouth daily 12/24 completed per patient Not Available Not Available Not Available atorvasta tin 40 mg tablet 1 tablet by mouth once a day 04/02 completed Not Available Not Available Not Available buspirone 5 mg tablet TAKE ONE TABLET BY MOUTH TWICE A DAY FOR A FEW DAYS; THEN INCRESE TO ONE TABLET BY MOUTH THREE TIMES A DAY FOR A FEW DAYS; THEN INCREASE TO active Not Available Not Available No t Available prednison e 10 mg tablet 03/05 completed Not Available Not Available Not Available venlafaxi ne ER 75 mg capsule,e xtended release 24 hr 03/05 completed Not Available Not Available Not Available atorvasta tin 20 mg tablet Take 1 tab by mouth daily. 12/24 completed Not Available Not Available Not Available amitripty line 150 mg tablet TAKE 1 TABLET BY MOUTH EVERYDAY AT BEDTIME 08/19 completed Not Available Not Available Not Available hydrocodo ne 5 mg-acetam inophen 325 mg tablet TAKE ONE TABLET BY MOUTH EVERY 6 HOURS NEEDED 08/19 completed Not Available Not Available Not Available methylphe nidate 5 mg tablet TAKE ONE TABLET BY MOUTH EVERY MORNING 08/19 completed Not Available Not Available Not Available clonazepa m 0.5 mg tablet TAKE ONE-QUAR TER TABLET BY MOUTH ONCE DAILY NEEDED +MAX USE TWICE WEEKLY+ 08/19 completed Not Available Not Available Not Available venlafaxi ne ER 150 mg capsule,e xtended release 24 hr TAKE ONE CAPSULE BY MOUTH EVERY DAY active Not Available Not Available No t Available hydroxyzi ne HCl 50 mg tablet TAKE ONE TABLET BY MOUTH TWICE A DAY NEEDED FOR ANXIETY 08/19 completed Not Available Not Available Not Available oxycodone -acetamin ophen 5 mg-325 mg tablet 02/05 completed Not Available Not Available Not Available benzonata te 100 mg capsule Take 1 capsule every 8 hours PRN for cough 09/10 completed Not Available Not Available Not Available Xanax 0.25 mg tablet Take 1 1/2 tablet orally daily as needed. 12/24 completed Not Available Not Available Not Available codeine 10 mg-guaife nesin 100 mg/5 mL oral liquid TAKE 10ML AT BEDTIME 08/19 completed Not Available Not Available Not Available methylpre dnisolone 4 mg tablets in a dose pack USE DIRECTED ON PACKAGE INSTRUCT IONS 08/19 completed Not Available Not Available Not Available ketoconaz ole 2 % topical cream APPLY TO FUNGAL TOENAILS ONCE DAILY NEEDED FOR 3 MONTHS active Not Available Not Available No t Available amitripty line 100 mg tablet TAKE 1 TABLET BY MOUTH EVERY NIGHT active Not Available Not Available No t Available oxycodone 5 mg tablet 02/05 completed Not Available Not Available Not Available escitalop mary 10 mg tablet take 1 tablet by mouth once daily 12/24 completed Not Available Not Available Not Available eszopiclo ne 3 mg tablet TAKE ONE TABLET BY MOUTH AT BEDTIME NEEDED active Not Available Not Available No t Available pregabali n 75 mg capsule Take 1 capsule twice a day by oral route. active Not Available Not Available No t Available pregabali n 100 mg capsule TAKE 1 CAPSULE BY MOUTH TWICE A DAY 12/20 /2023 completed Not Available Not Available Not Available senna active Not Available Not Availa ble Not Available oxycodone 10 mg tablet Take 1 tab by mouth three times daily as needed for pain 10/15 completed Not Available Not Available Not Available Voltaren 1 % topical gel apply QID to plantar fascia 09/[address] Sofia guthrie er Not Available Not Available Not Available venlafaxi ne ER 225 mg tablet,ex tended release 24 hr TAKE ONE TABLET BY MOUTH EVERY DAY 08/19 completed Not Available Not Available Not Available buprenorp jacinta 2 mg-naloxo ne 0.5 mg sublingua l film PLACE 1 FILM UNDER TONGUE EVERY FOUR TO SIX HOURS WHILE AWAKE 08/19 completed Not Available Not Available Not Available Linzess 145 mcg capsule TAKE ONE CAPSULE BY MOUTH EVERY DAY active Not Available Not Available No t Available Flonase Allergy Relief 50 mcg/actua tion nasal spray,ricardo pension 2 spray in right nostril once a day. 03/30 completed Not Available Not Available Not Available Narcan 4 mg/actuat ion nasal spray 1 spray in each nostril as needed in case of an overdose . 12/24 completed Not Available Not Available Not Available EC-Naprox en 500 mg tablet,de layed release TAKE ONE TABLET BY MOUTH TWICE A DAY active Not Available Not Available No t Available tramadol 100 mg tablet TAKE 1 TABLET BY MOUTH TWICE A DAY NEEDED FOR PAIN 08/19 completed Not Available Not Available Not Available Vitals Date Recorded Body height Body mass index (BMI) Body weight Body temperature Heart rate Respiratory rate Oxygen saturation Oxygen saturation in Arterial blood by Pulse oximetry Systolic blood pressure Diastolic blood pressure Provider Name and Address Organization Details Last Updated DateTime 3 181 cm 20.1 kg/m2 54627.8 9 g 96.9 [degF] 67 /min 18 /min 99 % 99 % 123 mm[Hg] 78 mm[Hg] Shawna Briggs MA AL - [facility]. 3 11:42:42 Date Recorded Body height Body mass index (BMI) Body weight Body temperature Oxygen saturation Oxygen saturation in Arterial blood by Pulse oximetry Heart rate Systolic blood pressure Diastolic blood pressure Provider Name and Address Organization Details Last Updated DateTime 3 181 cm 20.4 kg/m2 00127.0 8 g 97 [degF] 97 % 97 % 70 /min 120 mm[Hg] 70 mm[Hg] BRIAN RENTERIA MA [facility] 13:48:59 Social History Question Answer Notes LastModified by Organizat ion Details LastModified Time Tobacco Smoking Status Never Smoker Shawna Briggs MA null, [facility] 07/18/2023 11:40:09 What Was The Date Of Your Most Recent Tobacco Screening? 07/18/2023 [email or web address] Information not available 07/18/2023 Do You Or Have You Ever Used Any Other Forms Of Tobacco Or Nicotine? No [email or web address] Information not available 07/18/2023 Sex: Male Functional Status None recorded. Mental Status None recorded. Family History Relationship Description Onset Age of this Age Resolved Age Notes Notes:*Problem: DM-2 Medical History No medical history recorded. Immunizations Vaccine Type Date Status Provider Name and Address Organization Details Recorded Time Tdap 09/30/2018 completed Not Available [facility] 23:23:40 Tdap 06/02/2022 completed Not Available [facility] 23:23:40 Influenza, high-dose, trivalent, PF 07/12/2018 completed Not Available [facility] 08/17/2023 23:23:40 zoster recombinant 06/02/2022 completed Not Available [facility] 08/17/2023 23:23:40 SARS-COV-2 (COVID-19) vaccine, UNSPECIFIED 10/03/2020 completed Not Available [facility] 08/17/2023 23:23:40 SARS-COV-2 (COVID-19) vaccine, UNSPECIFIED 10/31/2020 completed Not Available [facility] 08/17/2023 23:23:40 SARS-COV-2 (COVID-19) vaccine, UNSPECIFIED 07/03/2021 completed Not Available [facility] 08/17/2023 23:23:40 COVID-19, mRNA, LNP-S, bivalent, PF, 30 mcg/0.3 mL dose 02/03/2023 completed Not Available [facility] 08/17/20 23:23:40 pneumococcal polysaccharide PPV23 06/02/2022 completed Not Available [facility] 2022 23:23:40 Past Encounters Encounter ID Performer Location Encounter Start Date Encounter Closed Date Diagnosis/Indication Diagnosis SNOMED-CT Code [id number] VENU MEEKS, YAA [address] [place] [address] 07/18/2023 11:29:22 07/18/2023 12:09:21 Onychomycosis of toenails 931621794 [id number] JOSE DAVID TERRAZAS MD [address] [address] 08/19/2023 13:30:41 08/19/2023 16:38:[address] [facility] [id number] Prolonged grief disorder 272359394 Health Concerns Section Related Observation LastModified by Organization Detai ls LastModified Time None Recorded Concern Status LastModified by Organization Details LastModified Time None Recorded Advance Directives Directive None Recorded Payers Encounter Date Sequence Insurance Name Policy Number Policy Cunha Covered Member ID Cunha Member ID Guarantor Name 07/18/2023 1 [id number] DVANTAGE - PPO) [id number] Jens Ayala [id number] Jens Ayala 08/19/2023 1 [place] - [place]) [id number] Jens Carcamolap [id number] Jens Ayala Notes Date Note Type Note Provider Name and Address Organization Details Recorded Time 07/18/2023 text/html HPI Notes: Willie nt today presents due to ongoing toenail fungus, with tender, painful toenails. He has seen podiatry in [place], recently saw [facility] podiatry, with X3 visits (04/21/23, 05/12/23, and 06/30/23). Has had toenail debridement performed, and concerned for possible soft tissue infection of surrounding skin of nail. Denies redness, warmth, active drainage. He has been treating toenails topically with ketoconazole cream and another paintable lacquer (?Tolcylen per podiatry notes). He was displeased with recent podiatry appointment, and has scheduled an appointment with another provider 12/1/23 in [place], [place]. YAA GANNON [address], [place], [address], [facility]. 07/18/2023 12:39:53 08/19/2023 text/html HPI Notes: Willie womack is here following up with his chronic pain issues anxiety and insomnia. Had transferred care to [facility] internal medicine, not entirely clear if he actually saw them or how far to go along with them. Has decided return to our care here. States he is having significant discomfort behind his left knee, had gotten shots previously through orthopedics. Continues with bilateral epicondylitis hip pain and plantar fasciitis. Has seen orthopedics, has seen podiatry regarding his pain issues. He is awaiting appointment with the pain clinic which will be some months off, has completed physical therapy. Patient voices frustration and disappointment again that I will not give him long-term opiates for his aches and pains as he knows that we will work for him. He has been entirely weaned off his clonazepam which she is frustrated with as well. Still takes Lunesta at night to help him sleep along with his amitriptyline. JOSE DAVID TERRAZAS MD [address], [place], [address], [facility]. 08/25/2023 21:30:07
--- OUTSIDE RECORDS SUMMARY | 2024-04-27 03:50 | XMS_ITS | Encounter Summary ---
Author Organization [facility] Address [facility] [place] [address] Care Team Providers Care Shape Carver Name Role Phone Collin Aburto MD Primary Care Provider [phone] Encounter Details Date Type Department Care Team (Latest Contact Info) Description 09/02/2011 12:16 PM EST - 09/02/2011 11:59 PM [facility] Hospital En[place] [address] CLINIC, Stevie Currie MD [facility] [place] [address] Cognitive impairment Discharge Disposition: Home Social History [...] 11:30 AM EST Office Visit Podiatry at [facility] [place] [address] Nadege Lundy DPM [facility] [place] [address] documented as of this encounter Procedures Procedure [...] you for referring this patient to the [facility] PET Center. Film and interpretation reviewed by the attending Narrative 09/02/2011 4:50 PM EST PET/CT SCAN OF THE BRAIN DATE OF EXAM: ??September 02, 2011. ?? PROCEDURE: Following IV injection of 68-woehbg-7-deoxyglucose (FDG) and a standard uptake period, a [...] 02, 2011. PROCEDURE: Following IV injection of 33-pguxam-7-deoxyglucose (FDG) and a standard uptake period, a [...] you for referring this patient to the [facility] PET Center. Film and interpretation reviewed by the attending Stevie Altman MD [facility] PET ORDERABLES * POCT GLUCOSE LAB USE ONLY (09/02/2011 12:39 PM EST) [facility] Glucose, POC 74 60 - 199 mg/dL [facility] Comment: Supplemental ranges: <110 mg/dL before meals <200 mg/dL all other times of the day Blood specimen (specimen) 09/02/2011 12:39 PM EST 09/02/2011 12:39 PM EST Stevie Altman MD POINT OF CARE TEST O RDERABLES Performing Organization Address City/State/ZIP Co wi Phone Number [facility] documented in this encounter Visit Diagnoses Diagnosis Cognitive impairment Unspecified persistent mental disorders due to conditions classified elsewhere documented in this encounter Care Teams Shape Carver Relationship Specialty Start Date End Date Collin Aburto MD [address] [place] [address] PCP - General 07/23/10 documented as of this encounter
--- OUTSIDE RECORDS SUMMARY | 2024-04-27 03:50 | XMS_ITS | Encounter Summary ---
Author Organization [facility]ly [facility] [place] [address] Care Team Providers Care Senior Business Broker Name Role Phone Collin Aburto MD Primary Care Provider [phone] Encounter Details Date Type Department Care Team (Late st Contact Info) Description 04/20/2024 [place] [address] Annalee Puga LNA Social History Tobacco Use Types Packs/Day Years [...] encounter Miscellaneous Notes * Telephone Encounter - Annalee Puga LNA - 04/20/2024 8:10 AM EDT Jens came to clinic thinking his appointment was today 04/20/24 but it was yesterday 04/19/24. Patient was upset that we could not see him today. Explained to patient that I am booking until August for first available new patient appointments. Offered to schedule him a new appointment in August with Dr. Lundy and add to wait list. Patient stated he wanted something sooner with Dr. Wagner, explained to patient that Dr. Wagner is moving to [facility] in May and that we have no more appointments available for Dr. Wagner schedule. Told patient he could try to call rob marinelli to see if they are scheduling for Dr. Wagner. documented in this encounter Plan of Treatment Upcoming Encounters Date Type Department Care Team (Late st Contact Info) Description 09/20/2024 11:30 AM EST [place] [address] Nadege Lundy [facility] [place] [place] [address] documented as of this encounter Visit Diagnoses Not on filedocumented in this encounter Care Teams Senior Business Broker Relationship Specialty Start Date End Date Collin Aburto MD [address] [place] [address] PCP - General 07/23/10 documented as of this encounter
--- OUTSIDE RECORDS SUMMARY | 2024-04-27 03:50 | XMS_ITS | Encounter Summary ---
Author Organization [facility] [place] [address] Care Team Providers Care Plateman Name Role Phone Collin Aburto MD Primary Care Provider [phone] Reason for Visit * Reason Onset Date Comments Follow-up 04/10/2011 Encounter Details Date Type Department Care Team (Late Contact Info) Description 04/10/2011 Telephone [place] [address] Jl Velasco MD [facility] [address] Follow-up Social History Tobacco Use Types Packs/Day [...] 11:30 AM EST Office [place] [phone] Nadege Lundy, NATALYA [facility] [place] [address] documented as of this encounter Visit Diagnoses Not on filedocumented in this encounter Care Teams Plateman Relationship Specialty Start Date End Date Collin Aburto MD [address] [place] [address] PCP - General 07/23/10 documented as of this encounter
--- OUTSIDE RECORDS SUMMARY | 2024-04-27 03:50 | XMS_ITS | Encounter Summary ---
Author Organization [facility] [place] [address] Care Team Providers Care Advertising Agency Manager Name Role Phone Collin Aburto MD Primary Care Provider [phone] Reason for Visit * Reason Onset Date Comments Follow-up 04/10/2011 Encounter Details Date Type Department Care Team (Late Contact Info) Description 04/10/2011 Telephone [place] [address] Jl Velasco MD [facility] [place] [address] Follow-up Social History Tobacco Use Types Packs/Day [...] 11:30 AM EST [place] [phone] Nadege Lundy DPM [facility] [place] [address] documented as of this encounter Visit Diagnoses Not on filedocumented in this encounter Care Teams Advertising Agency Manager Relationship Specialty Start Date End Date Collin Aburto MD [address] [place] [address] PCP - General 07/23/10 documented as of this encounter
--- OUTSIDE RECORDS SUMMARY | 2024-04-27 03:50 | XMS_ITS | Encounter Summary ---
Author Organization [facility] Address [facility] [place] [address] Care Team Providers Care Floor Waxer Name Role Phone Collin Aburto MD Primary Care Provider [phone] Encounter Details Date Type Department Care Team (Late st Contact Info) Description 06/13/2015 10:00 AM EDT [place] [address] Chester Garza III, MD [facility] [place] [address] Urinary retention Social History Tobacco Use Types [...] 11:30 AM EST [place] [address] Nadege Lundy [facility] [place] [address] documented as of this encounter Visit Diagnoses Diagnosis Urinary retention Retention of urine, unspecified documented in this encounter Care Teams Floor Waxer Relationship Specialty Start Date End Date Collin Aburto MD [address] [place] [address] PCP - General 07/23/10 documented as of this encounter
--- OUTSIDE RECORDS SUMMARY | 2024-04-27 03:50 | XMS_ITS | Encounter Summary ---
Author Organization [facility] [place] [address] Care Team Providers Care Canvas Cutter Machine Name Role Phone oCllin Aburto MD Primary Care Provider [phone] Encounter Details Date Type Department Care Team (Late st Contact Info) Description 2015 [place] [phone] Mark Anthony Madrigal MD [facility] [place] [address] Social History Tobacco Use Types Packs/Day Years [...] He called back after coming home from [facility], had urine culture sent and sent [...] 11:30 AM EST [place] [address] Nadege Lundy DPM [facility] [place] [address] documented as of this encounter Visit Diagnoses Not on filedocumented in this encounter Care Teams Canvas Cutter Machine Relationship Specialty Start Date End Date Collin Aburto MD [address] [place] [address] PCP - General 07/23/10 documented as of this encounter
--- OUTSIDE RECORDS SUMMARY | 2024-04-27 03:50 | XMS_ITS | Clinical Summary ---
Author Organization [facility] Address [facility] [place] [address] Care Team Providers Care Tab Machine Operator Name Role Phone Collin Aburto MD Primary Care Provider [phone] Allergies No known active allergies Medications Medication [...] Encounters Date Type Department Care Team Description 04/20/2024 [facility] [place] [address] Annalee Puga LNA 03/22/2024 Transcribe Orders [facility] Incoming Referrals [phone] Tyrese Lu DO Ingrown toenail; Onychogryphosis from Last 3 Months [...] 06/07/2015 3:14 PM EDT Plan of Treatment Upcoming Encounters Date Type Department Care Team (Late st Contact Info) Description 09/20/2024 11:30 AM EST Office [place] [phone] Nadege Lundy, [facility] [place] [address] Health Maintenance Due Date Last Done Comments Hepatitis C Screening 1964 Tdap adult 1965 Tetanus vaccine 1965 Zoster vaccine (1 of 2) 1996 Advance Directive 2001 Pneumoccocal Vaccine: 65+ (1 of 1 - PCV) 2011 Covid-19 Vaccine (1 - 2022-24 season) 2023 Influenza (Flu) vaccine (1 o f 1 - Influenza standard series) 05/01/2024 Care Teams Tab Machine Operator Relationship Specialty Start Date End Date Collin Aburto MD [address] [place] [address] PCP - General 07/23/10
--- OUTSIDE RECORDS SUMMARY | 2024-04-27 03:50 | XMS_ITS | Encounter Summary ---
Author Organization [facility] [place] [address] Care Team Providers Care Ski Patrol Name Role Phone Collin Aburto MD Primary Care Provider [phone] Encounter Details Date Type Department Care Team (Late st Contact Info) Description 06/24/2015 [place] [phone] Jacqueline Bonner MD [facility] [place] [address] Social History Tobacco Use Types Packs/Day Years [...] Time of call: 9 PM Caller: Jens Colindres Haja Lucy calls again because he self-cathed 4 [...] better. Jacqueline Bonner MD Urology PGY-2 Pager: [phone] documented in this encounter Plan of Treatment Upcoming Encounters Date Type Department Care Team (Late st Contact Info) Description 09/20/2024 11:30 AM EST Office [place] [address] Nadege Lundy [facility] [place] [address] documented as of this encounter Visit Diagnoses Not on filedocumented in this encounter Care Teams Ski Patrol Relationship Specialty Start Date End Date Collin Aburto MD [address] [place] [address] PCP - General 07/23/10 documented as of this encounter
--- OUTSIDE RECORDS SUMMARY | 2024-04-27 03:50 | XMS_ITS | Encounter Summary ---
Author Organization [facility] Address [facility] [place] [address] Care Team Providers Care Coordinator Of Genetic Services Name Role Phone Collin Aburto MD Primary Care Provider [phone] Reason for Visit * Reason Comments Insomnia Encounter Details Date Type Department Care Team (Late st Contact Info) Description 05/19/2011 12:20 PM EDT Office Visit Psychiatry [place] [address] Yuliya Burr, PhD [facility] [place] [address] Persistent disorder of initiating or maintaining sleep [...] had anappointment at the [facility] in [place] 2 weeks ago but it was rescheduled [...] in winter. 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 He has had this job for 5 [...] sleep, worry about 's alcoholism,finances Psychometric Scores: [facility]- Psychiatry 05/19/2011 Smoking/Tobacco Habits I have never [...] to have appointment at Memory Clinic in [facility] in July. Appears to have been referred for neuropsychological testing at [facility] as well. Diagnosis: [place] I: 307.42 Insomnia Rule out anxiety disorder NOS [place] II: Diagnosis Deferred [place] III: LBP, RLS, some elbow pain [place] IV: finances, worry about health, worry about 's health [place] V: 65 Conclusions/Tx Recommendations: Jens Ayala is [...] assessment of his cognitive functioning at the [place] [facility] in July.He has also been referred for neuropsychological assessment at [facility], but not scheduled yet. 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 RTC 2 weeks. 2) WIll need to further assess whether he clock watches or not. documented in this encounter Plan of Treatment Upcoming Encounters Date Type Department Care Team (Late st Contact Info) Description 09/20/2024 11:30 AM EST [place] [phone] Nadege Lundy DPM [facility] [place] [address] documented as of this encounter Visit Diagnoses Diagnosis Persistent disorder of initiating or maintaining sleep- Primary documented in this encounter Care Teams Coordinator Of Genetic Services Relationship Specialty Start Date End Date Collin Aburto MD [address] [place] [address] PCP - General 07/23/10 documented as of this encounter
--- OUTSIDE RECORDS SUMMARY | 2024-04-27 03:50 | XMS_ITS | Encounter Summary ---
Author Organization [facility] Address [facility] [place] [address] Care Team Providers Care Early Breastfeeding Care Specialist Name Role Phone Collin Aburto MD Primary Care Provider [phone] Reason for Visit * Reason Comments Insomnia Encounter Details Date Type Department Care Team (Late st Contact Info) Description 06/24/2011 9:30 AM EDT Office Visit Psychiatry [place] [address] Yuliya Burr, PhD [facility] [address] PSYCHI[place] [address] Persistent disorder of initiating or maintaining sleep [...] like to resume attending a meditation time [facility]. A: 307.42 P: Jens Ayala will bring [...] Encounters Date Type Department Care Team (Late Contact Info) Description 09/20/2024 11:30 AM EST Office [place] [address] Nadege Lundy DPM [facility] [place] [address] documented as of this encounter Visit Diagnoses Diagnosis Persistent disorder of initiating or maintaining sleep- Primary documented in this encounter Care Teams Early Breastfeeding Care Specialist Relationship Specialty Start Date End Date Collin Aburto MD [address] [place] [address] PCP - General 07/23/10 documented as of this encounter
--- OUTSIDE RECORDS SUMMARY | 2024-04-27 03:50 | XMS_ITS | Encounter Summary ---
[place] [address] Care Team Providers Care Farmworker Chicken Farm Name Role Phone Collin Aburto MD Primary Care Provider [phone] Reason for Referral * Consultation (Routine) - Authorized Specialty Diagnoses / Procedures Referred By Tram griffin Referred To Contact Podiatry Diagnoses Ingrown toenail Onychogryphosis Tyrese Lu DO [address] [place] [address] [facility] [place] [address] Referral ID Status Reason Start Date Expiration Date Visits Requested Visits Authorized [id number] Authorized Consult, Test & Treat PCP Updated and/or Approved 03/22/2024 03/22/2025 6 6 Encounter Details Date Type Department Care Team (Late st Contact Info) Description 03/22/2024 Transcribe Orders [facility] Incoming Referrals [phone] Tyrese Lu DO [address] [place], [place] [id number] Ingrown toenail; Onychogryphosis Social History Tobacco Use [...] 11:30 AM EST Office Visit Podiatry at [facility] [place] [address] Nadege Lundy DPM [facility] [place] [address] Scheduled Referrals Name Type Priority Associated Diagnoses Orde r Schedule Referral to Podiatry Outpatient Referral Routine Ingrown toenail Onychogryphosis Ordered: 03/22/2024 documented as of this encounter Visit Diagnoses Diagnosis Ingrown toenail Ingrowing nail Onychogryphosis Other specified disease of nail documented in this encounter Care Teams Farmworker Chicken Farm Relationship Specialty Start Date End Date Collin Aburto MD [address] [place] [address] PCP - General 07/23/10 documented as of this encounter
--- OUTSIDE RECORDS SUMMARY | 2024-04-27 03:50 | XMS_ITS | Encounter Summary ---
Author Organization [facility] Address [facility] [place] [address] Care Team Providers Care Machine Carton Marker Name Role Phone Collin Aburto MD Primary Care Provider [phone] Reason for Visit * Reason Comments Urinary Retention Encounter Details Date Type Department Care Team (Late st Contact Info) Description 06/07/2015 3:40 PM EDT [place] [address] Chester Garza III, MD [facility] [place] [address] Urinary retention due to benign prostatic hyperplasia [...] of urinary retention. This gentleman originally from [place] was traveling on [facility] a few days ago when he began experiencing frequent urination in small quantities. He felt he was not emptying his bladder and became uncomfortable. He reported to the [facility], where a noncontrast CT scan was performed. This showed no upper tract pathology, except for some renal cysts, distended bladder, and a markedly enlarged prostate. A 14 Peruvian Mathew catheter was inserted and placed to [...] Examination of genitalia: There is a 14 Peruvian Mathew catheter at the urethral meatus draining [...] 11:30 AM EST [place] [address] Nadege Lundy [facility] [place] [address] documented as of this encounter Visit Diagnoses Diagnosis Urinary retention due to benign prostatic hyperplasia documented in this encounter Care Teams Machine Carton Marker Relationship Specialty Start Date End Date Collin Aburto MD [address] [place] [address] PCP - General 07/23/10 documented as of this encounter
--- OUTSIDE RECORDS SUMMARY | 2024-04-27 03:50 | XMS_ITS | Encounter Summary ---
Author Organization [facility] [address] Care Team Providers Care Chucking Machine Set Up Operator Name Role Phone Collin Aburto MD Primary Care Provider [phone] Encounter Details Date Type Department Care Team (Late st Contact Info) Description 06/08/2015 [place] [address] Mark Anthony Madrigal MD [facility] [place] [address] Social History Tobacco Use Types Packs/Day Years [...] 11:30 AM EST Office [place] [address] Nadege Lundy [facility] [place] [address] documented as of this encounter Visit Diagnoses Not on filedocumented in this encounter Care Teams Chucking Machine Set Up Operator Relationship Specialty Start Date End Date Collin Aburto MD [address] [place] [address] PCP - General 07/23/10 documented as of this encounter
--- OUTSIDE RECORDS SUMMARY | 2024-04-27 03:50 | XMS_ITS | Encounter Summary ---
Author Organization [facility] [place] [address] Care Team Providers Care Analytical Consultant Name Role Phone Collin Aburto MD Primary Care Provider [phone] Encounter Details Date Type Department Care Team (Late st Contact Info) Description 08/12/2011 3:15 PM EST Follow-[place] [address] Stevie Altman MD [facility] [place] [address] Cognitive impairment (Primary Dx) Discharge Disposition: Home [...] 11:30 AM EST Office [place] [address] Nadege Lundy DPM [facility] [place] [address] documented as of this encounter Results * [...] you for referring this patient to the [facility] PET Center. Film and interpretation reviewed by the attending Narrative 09/02/2011 4:50 PM EST PET/CT SCAN OF THE BRAIN DATE OF EXAM: ??September 02, 2011. ?? PROCEDURE: Following IV injection of 99-vzxggc-4-deoxyglucose (FDG) and a standard uptake period, a [...] 02, 2011. PROCEDURE: Following IV injection of 64-cbfaeu-3-deoxyglucose (FDG) and a standard uptake period, a [...] you for referring this patient to the [facility] PET Center. Film and interpretation reviewed by the attending Stevie Altman MD IMG PET ORDERABLES documented in this encounter Visit Diagnoses Diagnosis Cognitive impairment- Primary Unspecified persistent mental disorders due to conditions classified elsewhere Cognitive impairment Unspecified persistent mental disorders due to conditions classified elsewhere documented in this encounter Care Teams Analytical Consultant Relationship Specialty Start Date End Date Collin Aburto MD [address] [place] [address] PCP - General 07/23/10 documented as of this encounter
--- OUTSIDE RECORDS SUMMARY | 2024-04-27 03:51 | XMS_ITS | Encounter Summary ---
Author Organization [facility] Address [address] [place] [address] Care Team Providers Care Reactor Service Operator Name Role Phone Collin Aburto MD Primary Care Provider [phone] Reason for Visit * Reason Comments Memory Loss Encounter Details Date Type Department Care Team (Late st Contact Info) Description 03/22/2012 14:00 EDT Office Visit [facility] Memory Program - Medical Office Building [address] [place] [id number] Chester Myers MD [address] [place] [address] Medical Office Building, [address] [place] [address] MCI (mild cognitive impairment) (Primary [...] 0858 EDT NEUROLOGY HEALTH CARE SERV[facility] Medical Office Building [address] [place] [address], [address] [address] PROGRESS/FOLLOWUP NOTE - 03/22/2012 PROBLEM: Mild cognitive [...] partner, Karlee Chin, for 17 minutes of giap-ag-rxtd conversation and discussion, with more than 10 minutes used for counseling and coordination of care. 2. I made no medication or other treatment recommendations. 3. Follow up in 1 year. Electronically Signed by Chester Myers MD 03/24/2012 11:22 Chester Myers MD Facs Teacher - Chester Myers MD - Job ID: SM Doc ID: [id number] Ext Doc ID: [id number] cc: Collin Aburto MD * Chester Myers [...] daily. added in this encounter Care Teams Reactor Service Operator Relationship Specialty Start Date End Date Collin Aburto MD [address] [place] [address] PCP - General 01/28/11 documented as of this encounter
--- OUTSIDE RECORDS SUMMARY | 2024-04-27 03:51 | XMS_ITS | Encounter Summary ---
Author Organization [facility] Address [address] [place] [address] Care Team Providers Care Economics Lecturer Name Role Phone Shara LEWIS MD, Ben [...] HST - 12/16/2022 8:27 AM T Emergency [facility] Emergency Dept [phone] [facility] [place] [address] Claude Matthew MD [phone] [facility] [place] [phone] Discharge Disposition: D/C Home, Self Care Social History Tobacco Use Types Packs/Day Years Used Date Smoking Tobacco: Never Smokeless Tobacco: Never Alcohol Use Standard Drinks/Week Comments No 0 (1 standard drink = 0.6 oz pur e alcohol) [facility] Food Insecurity Answer Date Recorde d Within [...] to get more. Not on file 12/16/2022 [facility] Food Insecurity Answer Date Recorde d Within [...] Jens Ayala, 77 year old male CSN: [id number] ED Date of Service: 12/16/2022 Arrival time:8:00 [...] request for medication refill. 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 Had refill on prescription and tried [...] - Moderate. Do not drive or operate [employer] ALPRAZolam 0.5 mg Oral Tablet Yes No [...] request for medication refill. Has been on assisted benzodiazepines. Had refill on prescription and tried to fill at [facility] but is outdated and had to see physician prior to rx filled. Tried to get appointment with PCP but was unable to get one until next week. Currently feels shaky but denies other symptoms or complaints. ROUTE DELIVERY MANAGER consulted and consistent with history.Has appointment with [...] Follow up provider: Ben Olmedo III, MD [phone] [facility] [phone] Schedule an appointment as soon as possible for a visit [facility] Emergency Dept [phone] [facility] [address] As needed, If symptoms worsen [...] prescriptions documented in this encounter Care Teams Economics Lecturer Relationship Specialty Start Date End Date Ben Olmedo III, MD [address] [place] [phone] PCP - General Family Medicine 10/28/21 documented as of this encounter
--- OUTSIDE RECORDS SUMMARY | 2024-04-27 03:51 | XMS_ITS | Encounter Summary ---
Author Organization [facility] Address [address] [place] [address] Care Team Providers Care Iron Melter Name Role Phone Shara LEWIS MD, Ben Webb Primary Care Provider + Reason for Visit * Referral (Routine) - Closed Specialty Diagnoses / Procedures Referred By Tram griffin Referred To Contact Rehabilitation Diagnoses Plantar fasciitis Pain in right foot Pain in left foot Difficulty in walking, not elsewhere classified Muscle weakness (generalized) Procedures Outpatient Physical Therapy Evaluate and Treat Ben Olmedo III, MD [address] [place] [phone] [place] Op Physical Therapy [phone] [facility] [place] [address] Referral ID Status Reason Start Date Expiration Date Visits Re quested Visits Authorized [id number] Closed 06/12/2022 09/10/2022 10 10 Encounter Details Date Type Department Care Team (Latest Contact Info) Description 06/17/2022 1:56 PM HST - 06/30/2022 11:59 PM HST Hospital Encounter [facility] Outpatient Rehab [phone] [facility] [place] [address] Marisol Morales, PT Discharge Disposition: [...] - Moderate. Do not drive or operate [employer] 6 Tablet 12/15/2021 eszopiclone (LUNESTA) 3 mg [...] 3 x 10 each Exercise #5: marble crop picker x 10 Exercise #6: great toe extension and lesser toe extension x 10 each Today's Treatment Total Tx Time (minutes): 55 Timed Code Tx (minutes): 55 Therapeutic Exercise (Minutes): 40 Manual Therapy (Minutes): 15 Other Charges Charge ID Procedure Code Description Qty. Modifiers Bit Sander User Diagnosis [id number] [facility] PT EXERCISE 15 MIN 3 Marisol Morales PT [id number] [facility] PT MANUAL THERAPY 15 MIN 1 Marisol Morales PT Signed by: Marisol Morales PT 1:1 Direct Physical Therapist Contact: Yes documented in this encounter Plan of Treatment Not on file documented as of this encounter Visit Diagnoses Not on filedocumented in this encounter Care Teams Iron Melter Relationship Specialty Start Date End Date Ben Olmedo III, MD [address] [place] [phone] PCP - General Family Medicine 10/28/21 documented as of this encounter
--- OUTSIDE RECORDS SUMMARY | 2024-04-27 03:51 | XMS_ITS | Encounter Summary ---
Author Organization [facility] Address [address] [place] [address] Care Team Providers Care Swine Extension Field Specialist Name Role Phone Shara LEWIS MD, Irving W Primary Care Provider + Encounter Details Date Type Department Care Team (Late st Contact Info) Description 06/13/2022 Plan of Care Documentation [facility] Outpatient Rehab [id number] [facility] [place], [place] [address] Social History Tobacco Use Types Packs/Day Years [...] on filedocumented in this encounter Care Teams Swine Extension Field Specialist Relationship Specialty Start Date End Date Ben Olmedo III, MD [address] [place] [address] PCP - General Family Medicine 10/28/21 documented as of this encounter
--- OUTSIDE RECORDS SUMMARY | 2024-04-27 03:51 | XMS_ITS | Encounter Summary ---
Author Organization [facility] Address [address] [place] [address] Care Team Providers Care Home Service Demonstrator Name Role Phone Collin Aburto MD Primary Care Provider [phone] Encounter Details Date Type Department Care Team (Late st Contact Info) Description 02/03/2023 Lab [facility] Pathology & Laboratory Medicine - [address] [address] Outr Resulting Lab, Provider Social History Tobacco [...] PSA 3.4 <=6.5 ng/mL 02/03/2023 22:37 EDT [facility] Blood VENOUS BLOOD / Unknown 02/03/2023 10:20 EDT 02/03/2023 21:15 EDT Narrative [facility] - 02/03/2023 22:37 EDT NOTE: Serum PSA concentration should not be interpreted as absolute evidence for the presence or absence of malignant disease. Assayed on Siemens ADVIA Centaur XPT using chemiluminescent technology.??Values obtained by using different assay methods cannot be used interchangeably. Provider Outr Resulting Lab CHEMISTRY & BLOOD GAS ORDERABLES [facility] [address] [place] [address] documented in this encounter Visit Diagnoses Not on filedocumented in this encounter Care Teams Home Service Demonstrator Relationship Specialty Start Date End Date Collin Aburto MD [address] [place] [address] PCP - General 01/28/11 documented as of this encounter
--- OUTSIDE RECORDS SUMMARY | 2024-04-27 03:51 | XMS_ITS | Encounter Summary ---
Author Organization [facility] Address [address] [place] [address] Care Team Providers Care Commodities Manager Name Role Phone Collin Aburto MD Primary Care Provider [phone] Encounter Details Date Type Department Care Team (Late st Contact Info) Description 12/24/2011 Results Only [facility] Laboratory Services - [facility] [address] [place], [place] [id number] Amos Haque MD [address] [place] [address] Social History Tobacco Use Types [...] ? DENNISMADAN Carmona ? Accession #: ? [id number] ? : ? 1945 (Age: 66) ??M [...] Haque MD PATHOLOGY ORDERABLES Performing Organization Address City/State/[facility] Co de Phone Number [facility] [address] [place] [address] documented in this encounter Visit Diagnoses Not on filedocumented in this encounter Care Teams Commodities Manager Relationship Specialty Start Date End Date Collin Aburto MD [address] [place] [address] PCP - General 01/28/11 documented as of this encounter
--- OUTSIDE RECORDS SUMMARY | 2024-04-27 03:51 | XMS_ITS | Encounter Summary ---
Author Organization [facility] Address [facility] [place] [address] Care Team Providers Care Swiss Machinist Name Role Phone Collin Aburto MD Primary Care Provider [phone] Reason for Referral * Psychiatric (Routine) - Closed by system - Referral Specialty Diagnoses / Procedures Referred By Tram griffin Referred To Contact Psychiatry Diagnoses Insomnia Procedures cbt for INSOMNIA Jl Velasco MD [facility] [place] [address] [facility] Psychiatry [address] [place] [phone] Referral ID Status Reason Start Date Expiration Date Visits Requested Visits Authorized [id number] Closed by system - Referral Consult, Test & Treat 04/01/2011 09/28/2011 1 1 * Psychiatric (Routine) - Closed by system - Referral Specialty Diagnoses / Procedures Referred By Contrebeca griffin Referred To Contact Psychiatry Diagnoses Depression Procedures med help Jl Velasco MD [facility] [place] [address] Candy Villegas APRN [facility] [place] [address] Referral ID Status Reason Start Date Expiration Date Visits Requested Visits Authorized [id number] Closed by system - Referral Consult, Test & Treat 04/01/2011 09/28/2011 1 1 Reason for Visit * Reason Comments Psychophysiologic Insomnia Encounter Details Date Type Department Care Team (Late st Contact Info) Description 04/01/2011 12:20 PM EDT Office [place] [address] Jl Velasco MD [facility] [place] [address] Insomnia (Primary Dx); Depression Social History Tobacco [...] evaluation at a memory disorders program in [place], [place]. He is worried about losing his [...] procedure only. Social History: Patient lives in [place], [place]. 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 He lives with his ex-, Karlee. [...] 11:30 AM EST Office [place] [address] Nadege Lundy DPM [facility] [place] [address] Scheduled Referrals Name Type Priority Associated Diagnoses Orde r Schedule PSYCHIATRY Outpatient Referral Routine Depression Ordered: 04/01/2011 PSYCHIATRY Outpatient Referral Routine Insomnia Ordered: 04/01/2011 documented as of this encounter Visit Diagnoses Diagnosis Insomnia- Primary Insomnia, unspecified Depression Depressive disorder, not elsewhere classified documented in this encounter Care Teams Swiss Machinist Relationship Specialty Start Date End Date Collin Aburto MD [address] [place] [address] PCP - General 07/23/10 documented as of this encounter
--- OUTSIDE RECORDS SUMMARY | 2024-04-27 03:51 | XMS_ITS | Encounter Summary ---
Author Organization [facility] Address [address] [place] [address] Care Team Providers Care Manager Strategic Marketing Name Role Phone Shara LEWIS MD, Ben Webb Primary Care Provider + Reason for Visit * Referral (Routine) - Closed Specialty Diagnoses / Procedures Referred By Tram griffin Referred To Contact Rehabilitation Diagnoses Pain, joint, knee, left Left lateral epicondylitis Chondromalacia of left patella Muscle weakness (generalized) Procedures Outpatient Physical Therapy Evaluate and Treat Ben Olmedo III, MD [address] [place] [phone] [place] Op Physical Therapy [phone] [facility] [place] [address] Referral ID Status Reason Start Date Expiration Date Visits Re quested Visits Authorized [id number] Closed 07/08/2022 10/06/2022 10 10 Encounter Details Date Type Department Care Team (Latest Contact Info) Description 07/17/2022 2:58 PM HST - 07/30/2022 11:59 PM HST Hospital Encounter [facility] Outpatient Rehab [phone] [facility] [place] [address] Marisol Morales, PT Discharge Disposition: [...] - Moderate. Do not drive or operate [employer] 6 Tablet 12/15/2021 eszopiclone (LUNESTA) 3 mg [...] Charge ID Procedure Code Description Qty. Modifiers Reduction Furnace Operator Helper User Diagnosis [id number] [facility] PT EXERCISE 15 MIN 2 Marisol Morales PT [id number] [facility] PT MANUAL THERAPY 15 MIN 1 Marisol Morales PT Signed by: Marisol Morales PT 1:1 Direct Physical Therapist Contact: Yes documented in this encounter Plan of Treatment Not on file documented as of this encounter Visit Diagnoses Not on filedocumented in this encounter Care Teams Manager Strategic Marketing Relationship Specialty Start Date End Date Ben Olmedo III, MD [address] [place] [phone] PCP - General Family Medicine 10/28/21 documented as of this encounter
--- OUTSIDE RECORDS SUMMARY | 2024-04-27 03:51 | XMS_ITS | Encounter Summary ---
Author Organization [facility] Address [address] [place] [address] Care Team Providers Care Cook Ship Name Role Phone Collin Aburto MD Primary Care Provider [phone] Reason for Visit * Reason Onset Date Comments Appointment Related 03/21/2011 Confirming a ppts Encounter Details Date Type Department Care Team (Late st Contact Info) Description 03/21/2011 Telephone [facility] Neurology - [address] [address] Chester Myers MD [address] [place] [address] Medical Office Building, [address] [place] [address] Appointment Related (Confirming appts) Social [...] on filedocumented in this encounter Care Teams Cook Ship Relationship Specialty Start Date End Date Collin Aburot MD [address] [place] [phone] PCP - General 01/28/11 documented as of this encounter
--- OUTSIDE RECORDS SUMMARY | 2024-04-27 03:51 | XMS_ITS | Encounter Summary ---
Author Organization [facility] Address [address] [place] [address] Care Team Providers Care Small Equipment Operator Name Role Phone Collin Aburto MD Primary Care Provider [phone] Reason for Visit * Reason Comments New Patient Visit New Patient Visit * Referral (Routine) - Authorization Not Required Specialty Diagnoses / Procedures Referred By [facility]iff[facility] Referred To Contact Orthopedic Surgery Diagnoses Plantar fascial fibromatosis Hereditary and idiopathic neuropathy, unspecified Jose David Sheriff MD [address] [place] [address] [facility] Ortho [facility] Pod [address] [place] [address] Referral ID Status Reason Start Date Expiration Date Visits Requested Visits Authorized [id number] Authorization Not Required 1 1 Encounter Details Date Type Department Care Team (Late st Contact Info) Description 07/31/2023 13:00 EST Office Visit [facility]iatry [address], [address] [place], [place] [address] Nomi Nix DPM [address] [facility] [address] [place], [place] [address] Bilateral foot pain (Primary Dx) Social History [...] of foot painbilaterally. He was seeing another solidworks drafter previously however he is following up for [...] limb documented in this encounter Care Teams Small Equipment Operator Relationship Specialty Start Date End Date Collin Aburto MD [address] [place] [address] PCP - General 01/28/11 documented as of this encounter
--- OUTSIDE RECORDS SUMMARY | 2024-04-27 03:51 | XMS_ITS | Encounter Summary ---
Author Organization [facility] Address [address] [place] [address] Care Team Providers Care Machine Precision Etcher Name Role Phone Collin Aburto MD Primary Care Provider [phone] Reason for Visit * Reason Comments Memory Loss Encounter Details Date Type Department Care Team (Late st Contact Info) Description 07/22/2011 14:00 EST Office Visit [facility] Memory Program - Medical Office Building [address] [place] [address] Chester Myers MD [address] [facility] Medical Office Building, [address] [place] [address] MCI (mild cognitive impairment) (Primary [...] 1225 EST [facility]UROLOGY HEALTH CARE SERVICE [facility] Medical Office Building [address] [place] [address], [address] [place] [address] CONSULTATION - 07/22/2011 REASON FOR CONSULTATION: Concern [...] with his long-term partner Karlee Chin in [place], [place]. Mr Ayala has been twice and twice. Karlee Chin is actually his second , but the couple were able to get back together withoutremarrying. Mr Ayala has a master's degree in 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 He [...] mg. Mr Ayala is right handed and Thai is his port lions language. ALLERGIES: CODEINE. MEDICATIONS: Amitriptyline 150 mg [...] a piece of paper from man in [facility] who has done work on their [...] Myers MD 07/29/2011 13:50 Chester Myers MD Rehabilitation Counselor - Chester Myers MD - DIS Job ID: SM Doc ID: [id number] Ext Doc ID: [id number] cc: Collin Aburto MD documented in this [...] 03/22/2012 added in this encounter Care Teams Machine Precision Etcher Relationship Specialty Start Date End Date Collin Aburto MD [address] [place] [address] PCP - General 01/28/11 documented as of this encounter
--- OUTSIDE RECORDS SUMMARY | 2024-04-27 03:51 | XMS_ITS | Encounter Summary ---
Author Organization [facility] [place] [address] Care Team Providers Care Professor Of Environmental Engineering Name Role Phone Collin Aburto MD Primary Care Provider [phone] Reason for Visit * Reason Onset Date Comments Other 02/04/2011 Appointment Encounter Details Date Type Department Care Team (Late st Contact Info) Description 02/04/2011 [place] [phone] José Miguel Espinoza MD [facility] [place] [address] Other (Appointment) Social History Tobacco Use Types [...] 11:30 AM EST [place] [phone] Nadege Lundy, NATALYA [facility] [place] [address] documented as of this encounter Visit Diagnoses Not on filedocumented in this encounter Care Teams Professor Of Environmental Engineering Relationship Specialty Start Date End Date Collin Aburto MD [address] [place] [address] PCP - General 07/23/10 documented as of this encounter
--- OUTSIDE RECORDS SUMMARY | 2024-04-27 03:51 | XMS_ITS | Encounter Summary ---
Author Organization [facility] Address [address] [place] [address] Care Team Providers Care Automated Access Systems Technician Name Role Phone Shara LEWIS MD, [...] Evaluate and Treat Ben Olmedo III, MD [address] [place] [phone] [place] Op Physical Therapy [phone] [facility] [place] [address] Referral ID Status Reason Start Date Expiration Date Visits Re quested Visits Authorized [id number] Closed 06/12/2022 09/10/2022 10 10 Encounter Details Date Type Department Care Team (Latest Contact Info) Description 06/23/2022 1:58 PM HST - 06/30/2022 11:59 PM HST Hospital Encounter [facility] Outpatient Rehab [phone] [facility] [place] [address] Marisol Morales, PT Discharge Disposition: [...] - Moderate. Do not drive or operate [employer] 6 Tablet 12/15/2021 eszopiclone (LUNESTA) 3 mg [...] Charge ID Procedure Code Description Qty. Modifiers Youth Manager User Diagnosis [id number] [facility] PT MANUAL THERAPY 15 MIN 2 Marisol Morales PT [id number] [facility] PT ULTRASOUND 15 MIN 1 Marisol Morales PT Signed by: Marisol Morales PT 1:1 Direct Physical Therapist Contact: Yes documented in this encounter Plan of Treatment Not on file documented as of this encounter Visit Diagnoses Not on filedocumented in this encounter Care Teams Automated Access Systems Technician Relationship Specialty Start Date End Date Ben Olmedo III, MD [address] [place] [phone] PCP - General Family Medicine 10/28/21 documented as of this encounter
--- OUTSIDE RECORDS SUMMARY | 2024-04-27 03:51 | XMS_ITS | Encounter Summary ---
Author Organization [facility] Address [address] [place] [address] Care Team Providers Care Utility Bill Collection Clerk Name Role Phone Shara LEWIS MD, Ben Webb Primary Care Provider + Reason for Visit * Reason Comments Knee Pain f/u LEFT knee pain Encounter Details Date Type Department Care Team (Late st Contact Info) Description 01/05/2023 3:00 PM HST Office Visit [facility] Orthopedics Clinic [phone] [facility] [address] [place] [address] Zbigniew Saavedra MD [phone] [facility] [address] [place] [phone] Chronic pain of left knee (Primary Dx); Chondromalacia, patella, left; Hamstring tendinitis of left thigh Discharge Disposition: D/C Home, Self Care Social History Tobacco Use Types Packs/Day Years Used Date Smoking Tobacco: Never Smokeless Tobacco: Never Alcohol Use Standard Drinks/Week Comments No 0 (1 standard drink = 0.6 oz pur e alcohol) [facility] Food Insecurity Answer Date Recorde d Within [...] to get more. Not on file 12/16/2022 [facility] Food Insecurity Answer Date Recorde d Within [...] is planning to move back to the [facility] to be closer to family. With his [...] treatment prior to his departure from the [place]. He does not have a treating physician back at the [facility]. No Known Allergies Past Medical History: Diagnosis [...] thigh documented in this encounter Care Teams Utility Bill Collection Clerk Relationship Specialty Start Date End Date Ben Olmedo III, MD [address] [place] [phone] PCP - General Family Medicine 10/28/21 documented as of this encounter
--- OUTSIDE RECORDS SUMMARY | 2024-04-27 03:51 | XMS_ITS | Encounter Summary ---
Author Organization [facility] Address [address] [place] [address] Care Team Providers Care Pants Cutter Name Role Phone Shara LEWIS MD, Ben Webb Primary Care Provider + Reason for Visit * Referral (Routine) - Closed Specialty Diagnoses / Procedures Referred By Tram griffin Referred To Contact Rehabilitation Diagnoses Pain, joint, knee, left Left lateral epicondylitis Chondromalacia of left patella Muscle weakness (generalized) Procedures Outpatient Physical Therapy Evaluate and Treat Ben Olmedo III, MD [address] [place] [phone] [place] [facility] [phone] [place] [address] Referral ID Status Reason Start Date Expiration Date Visits Re quested Visits Authorized [id number] Closed 07/08/2022 10/06/2022 10 10 Encounter Details Date Type Department Care Team (Latest Contact Info) Description 07/29/2022 2:00 PM HST - 07/30/2022 11:59 PM HST Hospital Encounter [facility] Outpatient Rehab [phone] [place] [address] Marisol Morales, PT Discharge Disposition: [...] - Moderate. Do not drive or operate [employer] 6 Tablet 12/15/2021 eszopiclone (LUNESTA) 3 mg [...] Charge ID Procedure Code Description Qty. Modifiers Rubber Cutter And Shape Carver User Diagnosis [id number] [facility] PT EXERCISE 15 MIN 2 Marisol Morales PT [id number] [facility] PT MANUAL THERAPY 15 MIN 1 Marisol Morales PT Signed by: Marisol Morales PT 1:1 Direct Physical Therapist Contact: Yes documented in this encounter Plan of Treatment Not on file documented as of this encounter Visit Diagnoses Not on filedocumented in this encounter Care Teams Pants Cutter Relationship Specialty Start Date End Date Ben Olmedo III, MD [address] [place] [phone] PCP - General Family Medicine 10/28/21 documented as of this encounter
--- OUTSIDE RECORDS SUMMARY | 2024-04-27 03:51 | XMS_ITS | Encounter Summary ---
Author Organization [facility] Address [address] [place] [address] Care Team Providers Care Radio Officer Name Role Phone Shara LEWIS MD, Ben Webb Primary Care Provider + Reason for Visit * Reason Comments Knee Pain LEFT knee pain. Revi ew MRI results done at [facility] on 06/25/22 Encounter Details Date Type Department Care Team (Late st Contact Info) Description 07/09/2022 2:45 PM HST Office Visit [facility] Orthopedics Clinic [phone] [facility] [address] [place] [address] Zbigniew Saavedra MD [phone] [facility] [address] [place] [phone] Chronic pain of left knee (Primary Dx); [...] Dr. Alexander St's office a call at [phone] to set up a consultation. documented in this encounter Progress Notes * Zbigniew Saavedra MD - 07/09/2022 2:45 PM HST CLINIC NOTE Chief Complaint: Chief Complaint Patient presents with Knee Pain LEFT knee pain. Review MRI results done at [facility] on 06/25/22 Subjective: Jens Ayala is a 77 year old male who had concerns including Knee Pain (LEFT knee pain. Review MRI results done at [facility] on 06/25/22). Patient presents for ongoing care [...] - Moderate. Do not drive or operate [employer] 6 Tablet 0 ALPRAZolam 0.5 mg Oral [...] sports medicine doctors who do visit the [place] periodically as a second opinion. If he wanted a rheumatology consultation this would likely necessitate a trip off [place]. All questions at this time have been [...] thigh documented in this encounter Care Teams Radio Officer Relationship Specialty Start Date End Date Ben Olmedo III, MD [address] [place] [phone] PCP - General Family Medicine 10/28/21 documented as of this encounter
--- OUTSIDE RECORDS SUMMARY | 2024-04-27 03:51 | XMS_ITS | Encounter Summary ---
Author Organization [facility] Address [address] [place] [address] Care Team Providers Care Atmospheric Technician Name Role Phone Collin Aburto MD Primary Care Provider [phone] Reason for Visit * Reason Comments Follow-up Follow-up Encounter Details Date Type Department Care Team (Late st Contact Info) Description 02/05/2024 10:00 EDT Office Visit [facility] Orthopedics & Podiatry [address], [address] [place] [address] Nomi Nix [facility] [address] [facility] [address] [place] [address] Plantar fasciitis, right (Primary Dx); [...] nail documented in this encounter Care Teams Atmospheric Technician Relationship Specialty Start Date End Date Collin Aburto MD [address] [place] [address] PCP - General 01/28/11 documented as of this encounter
--- OUTSIDE RECORDS SUMMARY | 2024-04-27 03:51 | XMS_ITS | Encounter Summary ---
Author Organization [facility] Address [address] [place] [address] Care Team Providers Care Bulk Sugar Handler Name Role Phone Shara LEWIS MD, Ben Webb Primary Care Provider + Reason for Visit * Referral (Routine) - Closed Specialty Diagnoses / Procedures Referred By Tram griffin Referred To Contact Rehabilitation Diagnoses Pain, joint, knee, left Left lateral epicondylitis Chondromalacia of left patella Muscle weakness (generalized) Procedures Outpatient Physical Therapy Evaluate and Treat Ben Olmedo III, MD [address] [place] [phone] [place] [facility] [phone] [place] [address] Referral ID Status Reason Start Date Expiration Date Visits Re quested Visits Authorized [id number] Closed 07/08/2022 10/06/2022 10 10 Encounter Details Date Type Department Care Team (Latest Contact Info) Description 08/05/2022 1:55 PM HST - 08/30/2022 11:59 PM HST Hospital Encounter [facility] Outpatient Rehab [phone] [place] [address] Marisol Morales, PT Discharge Disposition: [...] - Moderate. Do not drive or operate Storie 6 Tablet 12/15/2021 eszopiclone (LUNESTA) 3 mg [...] Home Exercise Program: 2 2: Access Code: [email or web address] URL: [email or web address] Date: 08/05/2022 Prepared by: Marisol Morales Exercises [...] Charge ID Procedure Code Description Qty. Modifiers Double End Tenoner Setter User Diagnosis [id number] [facility] PT EXERCISE 15 MIN 2 Marisol Morales PT [id number] [facility] PT MANUAL THERAPY 15 MIN 1 Marisol Morales PT Signed by: Marisol Morales PT 1:1 Direct Physical Therapist Contact: Yes documented in this encounter Plan of Treatment Not on file documented as of this encounter Visit Diagnoses Not on filedocumented in this encounter Care Teams Bulk Sugar Handler Relationship Specialty Start Date End Date Ben Olmedo III, MD [address] [place] [phone] PCP - General Family Medicine 10/28/21 documented as of this encounter
--- OUTSIDE RECORDS SUMMARY | 2024-04-27 03:51 | XMS_ITS | Encounter Summary ---
Author Organization [facility] Address [address] [place] [address] Care Team Providers Care Ball Winder Name Role Phone Collin Aburto MD Primary Care Provider [phone] Reason for Visit * Reason Comments Follow-up Follow-up Encounter Details Date Type Department Care Team (Late st Contact Info) Description 12/28/2023 11:00 EDT Office Visit [facility] Orthopedics & Podiatry [address], [address] [place] [address] Nomi Nix Elisabet [address] [facility] [address] [place] [address] Plantar fasciitis, right (Primary Dx); [...] right documented in this encounter Results * [place] ARTHROCENTESIS ASPIR&/INJ SMALL JT/BURSA W/O US (12/28/2023 11:00 EDT) Narrative [facility] POINT OF CARE - 12/28/2023 11:00 EDT Nomi Nix DPM ? 01/01/2024 ??7:50 Small Joint Injection/Arthrocentesis on 12/28/2023 11:00 Medications: 4 mg dexAMETHasone 4 mg/mL; 2 mL BUPivacaine (PF) 0.5% Nomi Nix DPM PROCEDURE/MINOR S URGICAL ORDERABLES [facility] POINT OF CARE documented in this encounter [...] mg documented in this encounter Care Teams Ball Winder Relationship Specialty Start Date End Date Collin Aburto MD [address] [place] [address] PCP - General 01/28/11 documented as of this encounter
--- OUTSIDE RECORDS SUMMARY | 2024-04-27 03:51 | XMS_ITS | Referral Summary ---
Author Organization [facility] Address [address] [place] [address] Care Team Providers Care Program Development Specialist Name Role Phone Collin Aburto MD Primary Care Provider [phone] Encounters Date Type Department Care Team Description 02/05/2024 10:00 EDT Office Visit [facility] Orthopedics & Podiatry [address] [place] [address] Nomi Nix, NATALYA Plantar fasciitis, right (Primary Dx); Neuropathy; Onychomycosis 01/28/2024 Telephone [facility] Orthopedics & Sport Medicine [address] [place] [address] Nomi Nix, NATALYA Other from [...] of Treatment Not on file Care Teams Program Development Specialist Relationship Specialty Start Date End Date Collin Aburto MD [address] [place] [address] PCP - General 01/28/11
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
--- OUTSIDE RECORDS SUMMARY | 2024-04-27 03:51 | XMS_ITS | Encounter Summary ---
[place] [address] Care Team Providers Care Dispatcher Tow Truck Name Role Phone Collin Aburto MD Primary Care Provider [phone] Reason for Referral * Consultation (Routine) - Closed Specialty Diagnoses / Procedures Referred By Tram t Referred To Contact Sleep Center Diagnoses Memory impairment José Miguel Espinoza MD [facility] GENERAL INTER[place] [address] Pa Shine MD [facility] [place] [address] Referral ID Status Reason Start Date Expiration Date V isits Requested Visits Authorized [id number] Closed Consult, Test & Treat 02/14/2011 08/13/2011 1 1 * Psychiatric (Routine) - Patient Refused - Seen Elsewhere Sooner Specialty Diagnoses / Procedures Referred By Contac t Referred To Contact Psychology / Psychiatry Diagnoses Memory impairment Procedures ccnp testing José Miguel Espinoza MD [facility] GENERAL [place] [address] [facility] Neuro [address] [place] [address] Referral ID Status Reason Start Date Expiration Date Visits Requested Visits Authorized [id number] Patient Refused - Seen Elsewhere Sooner Consult, Test & Treat 02/14/2011 08/13/2011 1 1 Reason for Visit * Reason Comments Dementia Encounter Details Date Type Department Care Team (Late st Contact Info) Description 02/14/2011 8:45 AM EDT Office [place] [address] Stevie Altman MD [facility] [place] [place] [address] Memory impairment (Primary Dx) Discharge Disposition: Home [...] significant other who provides additional information at [facility] during the interview. The patient reports feeling [...] mistake. 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 operator: I: not tested II: visual arellano intact III, IV, : EOMI, PERRL V: intact sensation to light touch over V1, V2, V3 VII: no facial droop, symmetric smile, eyes close w/out difficulty VIII: intact to finger rub bilat IX, X, XI: palate raises symmetrically, uvula midline XII: tongue protrudes midline, able to move side to side easily Gait: normal Brock Cognitive Assessment (MOCA): scored 27/30 (points deducted [...] with sleeping he should beeval[facility] [place] [facility] in order to treat / [...] 11:30 AM EST Office [place] [address] Nadege Lundy DPM [facility] [place] [address] Scheduled Referrals Name Type Priority Associated Diagnoses Order Schedule REFERRAL TO NEUROPSYCHOLOGY Outpatient Referral Routine Memory impairment Ordered: 02/14/2011 REFERRAL TO [facility] Outpatient Referral Routine Memory impairment Ordered: 02/14/2011 documented as of this encounter Visit Diagnoses Diagnosis Memory impairment- Primary Memory loss documented in this encounter Care Teams Dispatcher Tow Truck Relationship Specialty Start Date End Date Collin Aburto MD [address] [place] [address] PCP - General 07/23/10 documented as of this encounter
--- OUTSIDE RECORDS SUMMARY | 2024-04-27 03:51 | XMS_ITS | Encounter Summary ---
Author Organization [facility] Address [address] [place] [address] Care Team Providers Care Aboriginal Ceremonial Celebrant Name Role Phone Shara LEWIS MD, Ben Webb Primary Care Provider + Reason for Referral * Referral (Routine) - Closed Specialty Diagnoses / Procedures Referred By Contac t Referred To Contact Rehabilitation Diagnoses Plantar fasciitis Pain in right foot Pain in left foot Difficulty in walking, not elsewhere classified Muscle weakness (generalized) Procedures Outpatient Physical Therapy Evaluate and Treat Ben Brown III, MD [address] [place] [phone] [facility] Physical Therapy [phone] [facility] [place] [address] Referral ID Status Reason Start Date Expiration Date Visits Re quested Visits Authorized [id number] Closed 06/12/2022 09/10/2022 10 10 Reason for Visit * Referral (Routine) - Closed Specialty Diagnoses / Procedures Referred By Contac t Referred To Contact Rehabilitation Diagnoses Plantar fasciitis Pain in right foot Pain in left foot Difficulty in walking, not elsewhere classified Muscle weakness (generalized) Procedures Outpatient Physical Therapy Evaluate and Treat Ben Brown III, MD [address] [place] [phone] [facility] Op Physical Therapy [phone] [facility] [place] [address] Referral ID Status Reason Start Date Expiration Date Visits Re quested Visits Authorized [id number] Closed 06/12/2022 09/10/2022 10 10 Encounter Details Date Type Department Care Team (Latest Contact Info) Description 06/12/2022 1:55 PM HST - 06/30/2022 11:59 PM HST Hospital Encounter [facility] Outpatient Rehab [id number] [facility] [place] [address] Marisol Morales, PT Discharge Disposition: Still A [...] - Moderate. Do not drive or operate EnhanCV 6 Tablet 12/15/2021 eszopiclone (LUNESTA) 3 mg [...] consent for physical therapy evaluation and treatment. Medical Reception Specialist Goals (see Duration below) Pt will be [...] with your patient. Please call me at [phone] if you haveany concerns. Marisol Morales, PT [...] and running/jogging. Alleviating factors/activities: brace (provided by marketing rep), night splints, ice, and rest. Prior to symptom onset, patient was able to perform the above listed functions independently. Preferred Language: Estonian [1] Co-morbidities/personal factors: hx of plantar fasciitis [...] ELECTRONICALLY SIGNED BY: MARTIN SMITH WORKSTATION ID: [id number] XRAY - FOOT 3V (AP, LATERAL & [...] ELECTRONICALLY SIGNED BY: MARTIN SMITH WORKSTATION ID: [id number] Allergies: Patient has no known allergies. Past [...] - Moderate. Do not drive or operate EnhanCV 6 Tablet 0 ALPRAZolam 0.5 mg Oral [...] Scales Flowsheet Row Evaluation from 06/12/2022 in [facility] Outpatient Rehab Evaluation from 11/21/2020in [facility] Outpatient Rehab Evaluation from 12/27/2019 in [facility] Outpatient Rehab Lower Extremity % [...] Therapeutic Exercise (Minutes): 10 Daily living skills (83[address]): 15 1:1 Direct Physical Therapist Contact: Yes Other Charges Charge ID Procedure Code Description Qty. Modifiers Meat Dresser User Diagnosis [id number] [facility] PT INIT EVAL LOW 1 Marisol Morales, PT [id number] [facility] PT IND DAILY ED SKILLS 15 MIN 1 Marisol Morales, PT [id number] [facility] PT EXERCISE 15 MIN 1 Marisol [...] fibromatosis documented in this encounter Care Teams Aboriginal Ceremonial Celebrant Relationship Specialty Start Date End Date Ben Brown III, MD [address] [place] [phone] PCP - General Family Medicine 10/28/21 documented as of this encounter
--- OUTSIDE RECORDS SUMMARY | 2024-04-27 03:51 | XMS_ITS | Encounter Summary ---
Author Organization [facility] Address [address] [place] [address] Care Team Providers Care Clin Tech Name Role Phone Shara LEWIS MD, Ben Webb Primary Care Provider + Reason for Visit * Referral (Routine) - Closed Specialty Diagnoses / Procedures Referred By Tram griffin Referred To Contact Rehabilitation Diagnoses Pain, joint, knee, left Left lateral epicondylitis Chondromalacia of left patella Muscle weakness (generalized) Procedures Outpatient Physical Therapy Evaluate and Treat Ben Olmedo III, MD [address] [place] [phone] [facility] Physical Therapy [phone] [facility] [place] [address] Referral ID Status Reason Start Date Expiration Date Visits Re quested Visits Authorized [id number] Closed 07/08/2022 10/06/2022 10 10 Encounter Details Date Type Department Care Team (Latest Contact Info) Description 08/12/2022 1:57 PM HST - 08/30/2022 11:59 PM HST Hospital Encounter [facility] Outpatient Rehab [phone] [facility] [place] [address] Marisol Morales, PT Discharge Disposition: [...] - Moderate. Do not drive or operate [employer] 6 Tablet 12/15/2021 eszopiclone (LUNESTA) 3 mg [...] Charge ID Procedure Code Description Qty. Modifiers Wetlands Conservation Laborer User Diagnosis [id number] [facility] PT EXERCISE 15 MIN 2 Marisol Morales PT [id number] [facility] PT MANUAL THERAPY 15 MIN 1 Marisol Morales PT Signed by: Marisol Morales PT 1:1 Direct Physical Therapist Contact: Yes documented in this encounter Plan of Treatment Not on file documented as of this encounter Visit Diagnoses Not on filedocumented in this encounter Care Teams Clin Tech Relationship Specialty Start Date End Date Ben Olmedo III, MD [address] [place] [phone] PCP - General Family Medicine 10/28/21 documented as of this encounter
--- OUTSIDE RECORDS SUMMARY | 2024-04-27 03:51 | XMS_ITS | Encounter Summary ---
Author Organization [facility] Address [address] [place] [address] Care Team Providers Care Manager Area Name Role Phone Collin Aburto MD Primary Care Provider [phone] Reason for Visit * Reason Comments Follow-up Follow-up Encounter Details Date Type Department Care Team (Late st Contact Info) Description 11/27/2023 13:30 EDT Office Visit [facility] Orthopedics & Podiatry [address] [place] [address] Nomi Nix DPM [address] [facility] [address] [place] [address] Plantar fasciitis, left (Primary Dx); Onychomycosis [...] left documented in this encounter Results * [place] ARTHROCENTESIS ASPIR&/INJ SMALL JT/BURSA W/O US (11/27/2023 13:30 EDT) Narrative [facility] POINT OF CARE - 11/27/2023 13:30 EDT Nomi Nix DPM ? 12/07/2023 ??7:45 Small Joint Injection/Arthrocentesis on 11/27/2023 13:30 Medications: 2 mL BUPivacaine (PF) 0.5%; 4 mg dexAMETHasone 4 mg/mL Nomi Nix DPM PROCEDURE/MINOR S URGICAL ORDERABLES [facility] POINT OF CARE documented in this encounter [...] down added in this encounter Care Teams Manager Area Relationship Specialty Start Date End Date Collin Aburto MD [address] [place] [address] PCP - General 01/28/11 documented as of this encounter
--- OUTSIDE RECORDS SUMMARY | 2024-04-27 03:51 | XMS_ITS | Encounter Summary ---
Author Organization [facility] Address [address] [place] [address] Care Team Providers Care Manager Stars Name Role Phone Collin Aburto MD Primary Care Provider [phone] Reason for Visit * Reason Comments Memory Loss Encounter Details Date Type Department Care Team (Late st Contact Info) Description 07/15/2011 8:30 EST Office Visit [facility] Memory Program - Medical Office Building [address] [place] [id number] Flor Barragan, PhD [address] [place] [address] Medical Office Building, [address] [place] [address] Memory loss Social History Tobacco [...] 1102 EST NEUROLOGY HEALTH CARE SERVICE [facility] Medical Office Building [address] [place] [address], [address] [place] [address] NEW PATIENT EVALUATION - 07/15/2011 PATIENT PROFILE: Mr Ayala is a 66-year-old right-handed man with a master's degree in 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 Other interests and activities include outdoor sports, music and gardening. Mr Ayala lives in [facility] [place] with his partner, who was his second [...] He has trouble maintaining numbers inside the picayune configuration while numbering the face of a [...] 3 hours. Forty-six minutes [place] [address] and included testing that was separate from the testing done by the industrial controls technician Electronically Signed by Flor Barragan, Ph.D. 10/13/2011 14:14 Flor Barragan, Ph.D. Licensed Psychologist-Doctorate - Flor Barragan, Ph.D. - JENNIFER Job ID: SM Doc ID: [id number] Ext Doc ID: [id number] cc: documented in this encounter Care Teams Manager Stars Relationship Specialty Start Date End Date Collin Aburto MD [address] [place] [address] PCP - General 01/28/11 documented as of this encounter
--- OUTSIDE RECORDS SUMMARY | 2024-04-27 03:51 | XMS_ITS | Encounter Summary ---
Author Organization [facility] [place] [address] Care Team Providers Care Edge Polisher Name Role Phone Collin Aburto MD Primary Care Provider [phone] Encounter Details Date Type Department Care Team (Late st Contact Info) Description 02/13/2011 [place] [phone] Diana Moreno MD [facility] [place] [address] Social History Tobacco Use Types Packs/Day Years [...] 11:30 AM EST [place] [address] Nadege Lundy DPM [facility] [place] [address] documented as of this encounter Procedures Procedure Name Priority Date/Time Associated Diagnosis Comments FILM LIBRARY STORAGE ONLY MR HEAD Routine 02/13/2011 2:05 PM EDT documented in this encounter Results * FILM LIBRARY- STORAGE ONLY MR HEAD (02/13/2011 2:05 PM EDT) 02/13/2011 2:05 PM EDT Narrative RAD - 01/03/2014 7:48 PM EDT This is a non-reportable exam. Procedure Note Miguel Jenkins - 01/03/2014 This is a non-reportable exam. Diana Moreno MD IM FILM LIBRARY ORD ERABLES [facility] [address] [place] [address] documented in this encounter Visit Diagnoses Not on filedocumented in this encounter Care Teams Edge Polisher Relationship Specialty Start Date End Date Collin Aburto MD [address] [place] [address] PCP - General 07/23/10 documented as of this encounter
--- OUTSIDE RECORDS SUMMARY | 2024-04-27 03:51 | XMS_ITS | Encounter Summary ---
Author Organization [facility] Address [address] [place] [address] Care Team Providers Care Human Resources Director Name Role Phone Collin Aburto MD Primary Care Provider [phone] Encounter Details Date Type Department Care Team (Late st Contact Info) Description 07/15/2011 Phlebotomy Only [facility] [place] [address] [place] [address] Mine Laborer, Outpatient Memory loss Social History Tobacco Use [...] AND S EROLOGY ORDERABLES Performing Organization Address City/State/[facility] Co de Phone Number [facility] [address] [place] [address] * VITAMIN B12 (07/15/2011 10:03 EST) Pathologist [facility] Vitamin B-12 500 211 - 911 pg/ml [facility] Blood specimen (specimen) 07/15/2011 10:03 EST 07/15/2011 10:34 EST Chester Myers MD CHEMISTRY & BLOO D GAS ORDERABLES Performing Organization Address [facility] de Phone Number [facility] [address] [place] [address] * FOLATE (07/15/2011 10:03 EST) [facility] Folate 18.3 ng/mL [facility] Comment: Deficient: ??Less than 3.4 ng/mL Indeterminate: ??3.4-5.4 ng/mL Normal: ??Greater than 5.4 ng/mL Blood specimen (specimen) 07/15/2011 10:03 EST 07/15/2011 10:34 EST Chester Myers MD CHEMISTRY & BLOO D GAS ORDERABLES Performing Organization Address [facility] de Phone Number [facility] [address] [place] [address] * (ABNORMAL) COMPREHENSIVE METABOLIC PANEL (CMP) (07/15/2011 10:03 EST) [facility] Potassium 5.1(H) 3.5 - 5.0 mEq/L [facility] [...] BLOO D GAS ORDERABLES Performing Organization Address City/State/[facility] Co de Phone Number [facility] [address] [place] [address] documented in this encounter Visit Diagnoses Diagnosis Memory loss documented in this encounter Care Teams Human Resources Director Relationship Specialty Start Date End Date Collin Aburto MD [address] [place] [address] PCP - General 01/28/11 documented as of this encounter
--- OUTSIDE RECORDS SUMMARY | 2024-04-27 03:51 | XMS_ITS | Encounter Summary ---
Author Organization [facility] Address [address] [place] [address] Care Team Providers Care Double Back Operator Name Role Phone Shara LEWIS MD, Ben Webb Primary Care Provider + Reason for Visit * Referral (Routine) - Closed Specialty Diagnoses / Procedures Referred By Tram griffin Referred To Contact Rehabilitation Diagnoses Pain, joint, knee, left Left lateral epicondylitis Chondromalacia of left patella Muscle weakness (generalized) Procedures Outpatient Physical Therapy Evaluate and Treat Ben lOmedo III, MD [address] [place] [phone] Ak Op Physical Therapy [phone] [facility] [place] [address] Referral ID Status Reason Start Date Expiration Date Visits Re quested Visits Authorized [id number] Closed 07/08/2022 10/06/2022 10 10 Encounter Details Date Type Department Care Team (Latest Contact Info) Description 07/22/2022 2:00 PM HST - 07/30/2022 11:59 PM HST Hospital Encounter [facility] Outpatient Rehab [phone] [facility] [place] [address] Marisol Morales, PT Discharge Disposition: [...] - Moderate. Do not drive or operate [employer] 6 Tablet 12/15/2021 eszopiclone (LUNESTA) 3 [...] Charge ID Procedure Code Description Qty. Modifiers Cleaners User Diagnosis [id number] [facility] PT EXERCISE 15 MIN 2 Marisol Morales PT [id number] [facility] PT MANUAL THERAPY 15 MIN 1 Marisol Morales PT Signed by: Marisol Morales PT 1:1 Direct Physical Therapist Contact: Yes documented in this encounter Plan of Treatment Not on file documented as of this encounter Visit Diagnoses Not on filedocumented in this encounter Care Teams Double Back Operator Relationship Specialty Start Date End Date Ben Olmedo III, MD [address] [place] [phone] PCP - General Family Medicine 10/28/21 documented as of this encounter
--- OUTSIDE RECORDS SUMMARY | 2024-04-27 03:51 | XMS_ITS | Encounter Summary ---
Author Organization [facility] Address [address] [place] [address] Care Team Providers Care District Manager Name Role Phone Shara LEWIS MD, Irving W Primary Care Provider + Encounter Details Date Type Department Care Team (Late st Contact Info) Description 07/10/2022 Plan of Care Documentation [facility] Outpatient Rehab [id number] [facility] [address] [place], [place] [phone] Social History Tobacco Use Types Packs/Day Years [...] on filedocumented in this encounter Care Teams District Manager Relationship Specialty Start Date End Date Ben Olmedo III, MD [address] [place] [address] PCP - General Family Medicine 10/28/21 documented as of this encounter
--- OUTSIDE RECORDS SUMMARY | 2024-04-27 03:51 | XMS_ITS | Clinical Summary ---
Author Organization [facility] Address [address] [place] [address] Care Team Providers Care Directory Operator Name Role Phone Shara LEWIS MD, [...] - Moderate. Do not drive or operate [employer] 6 Tablet 12/15/2021 Active linaCLOtide (Linzess) 145 [...] drink = 0.6 oz pur e alcohol) [facility] Housing Stability Answer Date Recor ded [...] to get more. Not on file 12/16/2022 [facility] Food Insecurity Answer Date Recorde d [...] season) 2023 Advanced Care Planning Discussion 08/31/2023 Falls Risk Screening 08/31/2023 MEDICARE AWV CALENDAR YEAR 2023 Influenza [...] 5 AM HST 12/09/2021 12:21 PM HST Marlne Pruitt MD SPECIAL CHEMISTRY-OR DERABLE LAB [facility] [phone] [facility] [place] [address] [facility] 19-[address] [place] [address] from Last 3 Months or Most Recently Relevant to Health Maintenance Care Teams Directory Operator Relationship Specialty Start Date End Date Ben Olmedo III, MD [address] [place] [phone] PCP - General Family Medicine 10/28/21
--- OUTSIDE RECORDS SUMMARY | 2024-04-27 03:51 | XMS_ITS | Encounter Summary ---
Author Organization [facility] Address [address] [place] [address] Care Team Providers Care General Operator Name Role Phone Shara LEWIS MD, Ben Webb Primary Care Provider + Reason for Referral * Imaging (Routine) - Closed Specialty Diagnoses / Procedures Referred By Contac t Referred To Contact Diagnoses Bilateral plantar fasciitis Procedures XRAY - FOOT 3V (AP, LATERAL & OBLIQUE) Ben Brown III, MD [address] [place] [phone] Referral ID Status Reason Start Date Expiration Date Visits Re quested Visits Authorized [id number] Closed 06/05/2022 1 1 Reason for Visit * Imaging (Routine) - Closed Specialty Diagnoses / Procedures Referred By Contac t Referred To Contact Diagnoses Bilateral plantar fasciitis Procedures XRAY - FOOT 3V (AP, LATERAL & OBLIQUE) Ben Brown III, MD [address] [place] [phone] Referral ID Status Reason Start Date Expiration Date Visits Re quested Visits Authorized [id number] Closed 06/05/2022 1 1 Encounter Details Date Type Department Care Team (Latest Contact Info) Description 06/05/2022 11:00 AM HST - 06/05/2022 11:59 PM HST Hospital Encounter [facility] Imaging Services [id number] [facility] [place] [address] Discharge Disposition: D/C Home, Self Care Social [...] - Moderate. Do not drive or operate [employer] 6 Tablet 12/15/2021 eszopiclone (LUNESTA) 3 mg [...] ELECTRONICALLY SIGNED BY: ??MARTIN SMITH WORKSTATION ID: [id number] Narrative 06/05/2022 11:18 AM HST Result Status: [...] ELECTRONICALLY SIGNED BY: MARTIN SMITH WORKSTATION ID: [id number] Ben Brown III, MD XRAY-ORDERABLE documented in this encounter Visit Diagnoses Diagnosis Bilateral plantar fasciitis Plantar fascial fibromatosis documented in this encounter Care Teams General Operator Relationship Specialty Start Date End Date Ben Brown III, MD [address] [place] [phone] PCP - General Family Medicine 10/28/21 documented as of this encounter
--- OUTSIDE RECORDS SUMMARY | 2024-04-27 03:51 | XMS_ITS | Encounter Summary ---
Author Organization [facility] Address [address] [place] [address] Care Team Providers Care Optical Engineering Manager Name Role Phone Shara LEWIS MD, Ben Webb Primary Care Provider + Reason for Referral * Imaging (Routine) - Closed Specialty Diagnoses / Procedures Referred By Contac t Referred To Contact Diagnoses Bilateral plantar fasciitis Procedures XRAY - FOOT 3V (AP, LATERAL & OBLIQUE) Ben Brown III, MD [address] [place] [phone] Referral ID Status Reason Start Date Expiration Date Visits Re quested Visits Authorized [id number] Closed 06/05/2022 1 1 Reason for Visit * Imaging (Routine) - Closed Specialty Diagnoses / Procedures Referred By Contac t Referred To Contact Diagnoses Bilateral plantar fasciitis Procedures XRAY - FOOT 3V (AP, LATERAL & OBLIQUE) Ben Brown III, MD [address] [place] [phone] Referral ID Status Reason Start Date Expiration Date Visits Re quested Visits Authorized [id number] Closed 06/05/2022 1 1 Encounter Details Date Type Department Care Team (Latest Contact Info) Description 06/05/2022 11:00 AM HST - 06/05/2022 11:59 PM HST Hospital Encounter [facility] Imaging Services [phone] [facility] [place] [address] Discharge Disposition: D/C Home, Self Care Social [...] - Moderate. Do not drive or operate [employer] 6 Tablet 12/15/2021 eszopiclone (LUNESTA) 3 mg [...] ELECTRONICALLY SIGNED BY: ??MARTIN SMITH WORKSTATION ID: [id number] Narrative 06/05/2022 11:57 AM HST Result Status: [...] ELECTRONICALLY SIGNED BY: MARTIN SMITH WORKSTATION ID: [id number] Ben Brown III, MD XRAY-ORDERABLE documented in this encounter Visit Diagnoses Diagnosis Bilateral plantar fasciitis Plantar fascial fibromatosis documented in this encounter Care Teams Optical Engineering Manager Relationship Specialty Start Date End Date Ben Brown III, MD [address] [place] [phone] PCP - General Family Medicine 10/28/21 documented as of this encounter
--- OUTSIDE RECORDS SUMMARY | 2024-04-27 03:51 | XMS_ITS | Encounter Summary ---
Author Organization [facility] Address [address] [place] [address] Care Team Providers Care Coining Press Operator Name Role Phone Shara LEWIS MD, Ben Webb Primary Care Provider + Reason for Referral * Imaging (Routine) - Closed Specialty Diagnoses / Procedures Referred By Contac t Referred To Contact Diagnoses Pain of both elbows Chronic pain of left knee Chondromalacia, patella, left Hamstring tendinitis of left thigh Procedures MRI - KNEE WITHOUT IV CONTRAST Joshua Patricio MD [phone] [facility] [address] [phone] [facility] [phone] [place] [address] Referral ID Status Reason Start Date Expiration Date Visits Re quested Visits Authorized [id number] Closed 04/23/2022 1 1 Reason for Visit * Imaging (Routine) - Closed Specialty Diagnoses / Procedures Referred By Contac t Referred To Contact Diagnoses Pain of both elbows Chronic pain of left knee Chondromalacia, patella, left Hamstring tendinitis of left thigh Procedures MRI - KNEE WITHOUT IV CONTRAST Joshua Patricio MD [phone] [place] [phone] [place] [address] Ri Mri [phone] [place] [address] Referral ID Status Reason Start Date Expiration Date Visits Re quested Visits Authorized [id number] Closed 04/23/2022 1 1 Encounter Details Date Type Department Care Team (Latest Contact Info) Description 06/25/2022 10:28 AM HST - 06/25/2022 11:59 PM HST Hospital Encounter [facility] [phone] [place] [address] Discharge Disposition: D/C Home, Self Care Social [...] - Moderate. Do not drive or operate [employer] 6 Tablet 12/15/2021 eszopiclone (LUNESTA) 3 mg [...] ELECTRONICALLY SIGNED BY: ??GIOVANY SEGOVIA WORKSTATION ID: [id number] Narrative 06/25/2022 12:17 PM HST Result Status: [...] gastrocnemius and pes anserinus tendons are normal. [id number] signal infiltrates the quadriceps tendon indicating tendinosis. [...] ELECTRONICALLY SIGNED BY: GIOVANY SEGOVIA WORKSTATION ID: [id number] Joshua Patricio MD MRI-ORDERABLE documented in this encounter Visit Diagnoses Diagnosis Pain of both elbows Pain in joint, upper arm Chronic pain of left knee Pain in joint, lower leg Chondromalacia, patella, left Hamstring tendinitis of left thigh documented in this encounter Care Teams Coining Press Operator Relationship Specialty Start Date End Date Ben Olmedo III, MD [address] [place] [phone] PCP - General Family Medicine 10/28/21 documented as of this encounter
--- OUTSIDE RECORDS SUMMARY | 2024-04-27 03:51 | XMS_ITS | Encounter Summary ---
Author Organization [facility] Address [facility] [place] [address] Care Team Providers Care Supervisor Mold Construction Name Role Phone Collin Aburto MD Primary Care Provider [phone] Reason for Visit * Reason Comments Cognitive Problems Encounter Details Date Type Department Care Team (Late st Contact Info) Description 03/26/2011 12:40 PM EDT [place] [phone] Diana Weir MD [facility] [place] [address] Memory loss (Primary Dx) Discharge Disposition: Home [...] appointments for testing with multiple centers, [place] [facility] [place] [facility] [place]. Patient needs to haveneuropsych testing before Neurology has anything further to add. His MOCA was 27/30 on last evaluation and his rough MMSE today was normal. He is understandably upset and will followup as closely as possible. Sukhdeep Oenal, Resident in Neurology I have seen the [...] an appointment with the memory clinic at [facility]. Even after calling his and his primary care physician it was not clear whether this is neuropsychological testing or a consult for his memory loss. Plan: Called the patient and his several times today to clarify the appointments, however, I was unable to reach the memory clinic at [facility]. Will try to coordinate the appointments overthe next few days and then followup with the patient about the results of those tests. 03/26/11 Clarified patient appointment he will have neuropsych at [facility] on 04/28 and follow up with Dr Altman scheduled 05/29. documented in this encounter Plan of Treatment Upcoming Encounters Date Type Department Care Team (Late st Contact Info) Description 09/20/2024 11:30 AM EST Office [place] [address] Nadege Lundy DPM [facility] [place] [address] documented as of this encounter Visit Diagnoses Diagnosis Memory loss- Primary documented in this encounter Care Teams Supervisor Mold Construction Relationship Specialty Start Date End Date Lamonte, Collin H, MD [address] [place] [address] PCP - General 07/23/10 documented as of this encounter
--- OUTSIDE RECORDS SUMMARY | 2024-04-27 03:51 | XMS_ITS | Encounter Summary ---
Author Organization [facility] Address [address] [place] [address] Care Team Providers Care Bobbin Winder Name Role Phone Collin Aburto MD Primary Care Provider [phone] Encounter Details Date Type Department Care Team (Late st Contact Info) Description 04/25/2011 Orders Only [facility] Memory Program - Medical Office Building [address] [place], [place] [phone] Chester Myers MD [address] [facility] Medical Office Building, [address] [place] [address] Memory loss (Primary Dx) Social [...] * SYPHILIS SEROLOGY (07/15/2011 10:03 EST) Pathologist [facility] Syphilis Serology Interpretation: Nonreactive [facility] Comment:Reference Range: Non reactive Blood specimen (specimen) 07/15/2011 10:03 EST 07/15/2011 10:34 EST Chester Myers MD IMMUNOLOGY AND S EROLOGY ORDERABLES [facility] [address] [place] [address] * VITAMIN B12 (07/15/2011 10:03 EST) Vitamin B-12 500 211 - 911 pg/ml [facility] Blood specimen (specimen) 07/15/2011 10:03 EST 07/15/2011 10:34 EST Chester Myers MD CHEMISTRY & BLOO D GAS ORDERABLES Performing Organization Address [facility] Co de Phone Number [facility] [address] [place] [address] * FOLATE (07/15/2011 10:03 EST) Folate 18.3 ng/mL [facility] Comment: Deficient: ??Less than 3.4 ng/mL Indeterminate: ??3.4-5.4 ng/mL Normal: ??Greater than 5.4 ng/mL Blood specimen (specimen) 07/15/2011 10:03 EST 07/15/2011 10:34 EST Chester Myers MD CHEMISTRY & BLOO D GAS ORDERABLES Performing Organization Address [facility] de Phone Number [facility] [address] [place] [address] * (ABNORMAL) COMPREHENSIVE METABOLIC PANEL (CMP) (07/15/2011 [...] BLOO D GAS ORDERABLES Performing Organization Address City/State/[facility] Co de Phone Number [facility] [address] [place] [address] documented in this encounter Visit Diagnoses Diagnosis Memory loss- Primary documented in this encounter Care Teams Bobbin Winder Relationship Specialty Start Date End Date Collin Aburto MD [address] [place] [phone] PCP - General 01/28/11 documented as of this encounter
--- OUTSIDE RECORDS SUMMARY | 2024-04-27 03:51 | XMS_ITS | Encounter Summary ---
Author Organization [facility] Address [address] [place] [address] Care Team Providers Care Section Hand Helper Name Role Phone Unavailable Primary Care Provider Unavailabl e Encounter Details Date Type Department Care Team (Late st Contact Info) Description 12/01/2005 Results Only [facility] conversion [address] [place] [address] Amos Haque MD [address] [place] [address] Social History Tobacco Use Types [...] ? MADAN DENNIS ? Accession #: ? [id number] ? : ? 1945 (Age: 60) ??M [...] specimen is entirely submitted as (B). ??(Radha Boyer[place] [place] [facility] End of Report [facility] 12/01/2005 12/02/2005 15: 51 EDT Amos Haque MD PATHOLOGY ORDERABLES [facility] [address] [place] [address] documented in this encounter Visit Diagnoses Not on filedocumented in this encounter
--- OUTSIDE RECORDS SUMMARY | 2024-04-27 03:51 | XMS_ITS | Encounter Summary ---
Author Organization [facility] Address [address] [place] [address] Care Team Providers Care Insulation Cutter And Former Name Role Phone Collin Aburto MD Primary Care Provider [phone] Reason for Visit * Reason Comments Memory Loss Encounter Details Date Type Department Care Team (Late st Contact Info) Description 09/12/2011 9:30 EST Office Visit [facility] Memory Program - Medical Office Building [address] [place] [phone] Chester Myers MD [address] [place] [address] Medical Office Building, [address] [place] [address] MCI (mild cognitive impairment) (Primary [...] 1031 EST NEUROLOGY HEALTH CARE SERVICE [facility] Medical Office Building [address] [place] [address], [address] [address] PROGRESS/FOLLOWUP NOTE - 09/12/2011 PROBLEM: Mild cognitive [...] Ayala and his for 26 minutes of [id number]-jt-[id number] conversation and discussion, with more than 20 minutes devoted to counseling and coordination of care. 2. I made no additional changes in medication. 3. Follow up in December/January 2012 for a reevaluation with testing. Electronically Signed by Chester Myers MD 09/15/2011 12:44 Chester Myers MD Briquetting Machine Operator - Chester Myers MD - AN Job ID: SM Doc ID: [id number] Ext Doc ID: [id number] cc: Collin Aburto MD * Chester Myers [...] bedtime. added in this encounter Care Teams Insulation Cutter And Former Relationship Specialty Start Date End Date Collin Aburto MD [address] [place] [address] PCP - General 01/28/11 documented as of this encounter
--- OUTSIDE RECORDS SUMMARY | 2024-04-27 03:51 | XMS_ITS | Encounter Summary ---
Author Organization [facility] Address [address] [place] [address] Care Team Providers Care Hand Sprayer Name Role Phone Collin Aburto MD Primary Care Provider [phone] Reason for Visit * Reason Onset Date Comments Other 01/28/2024 Encounter Details Date Type Department Care Team (Late st Contact Info) Description 01/28/[address] [facility] [address] [place] [address] [facility] [address] [facility] [address] [place] [address] Other Social History Tobacco Use [...] today. Asked that he provide information for [employer]. Per Jens, the company isgoing to call [...] on filedocumented in this encounter Care Teams Hand Sprayer Relationship Specialty Start Date End Date Collin Aburto MD [address] [place] [address] PCP - General 01/28/11 documented as of this encounter
--- OUTSIDE RECORDS SUMMARY | 2024-04-27 03:51 | XMS_ITS | Encounter Summary ---
Author Organization [facility] Address [address] [place] [address] Care Team Providers Care Solar Sales Consultant Name Role Phone Shara LEWIS MD, Ben Webb Primary Care Provider + Reason for Referral * Referral (Routine) - Closed Specialty Diagnoses / Procedures Referred By Contac t Referred To Contact Rehabilitation Diagnoses Pain, joint, knee, left Left lateral epicondylitis Chondromalacia of left patella Muscle weakness (generalized) Procedures Outpatient Physical Therapy Evaluate and Treat Ben Brown III, MD [address] [place] [phone] N[facility] Op Physical Therapy [phone] [facility] [place] [address] Referral ID Status Reason Start Date Expiration Date Visits Re quested Visits Authorized [id number] Closed 07/08/2022 10/06/2022 10 10 Reason for Visit * Referral (Routine) - Closed Specialty Diagnoses / Procedures Referred By Contac t Referred To Contact Rehabilitation Diagnoses Pain, joint, knee, left Left lateral epicondylitis Chondromalacia of left patella Muscle weakness (generalized) Procedures Outpatient Physical Therapy Evaluate and Treat Ben Brown III, MD [address] [place] [phone] Nd Op Physical Therapy [phone] [facility] [place] [address] Referral ID Status Reason Start Date Expiration Date Visits Re quested Visits Authorized [id number] Closed 07/08/2022 10/06/2022 10 10 Encounter Details Date Type Department Care Team (Latest Contact Info) Description 07/08/2022 3:47 PM HST - 07/30/2022 11:59 PM HST Hospital Encounter [facility] Outpatient Rehab 6[address]125 [facility] [place] [address] Marisol Morales, PT Discharge Disposition: Still A [...] - Moderate. Do not drive or operate [employer] 6 Tablet 12/15/2021 eszopiclone (LUNESTA) 3 mg [...] consent for physical therapy evaluation and treatment. Study Specialist Goals (see Duration below) Pt will [...] with your patient. Please call me at [phone] if you haveany concerns. Marisol Morales, PT SUBJECTIVE Patient is a 77 year old male with chief complaints of L knee pain since . He states that at that time, he was shoveling snow in [place] and must have pushed his foot too [...] listed functions with minimal difficulty. Preferred Language: Trinidadian [1] Co-morbidities/personal factors: chronic nature of sxs, [...] ELECTRONICALLY SIGNED BY: GIOVANY SEGOVIA WORKSTATION ID: [id number] XRAY - FOOT 3V (AP, LATERAL & [...] ELECTRONICALLY SIGNED BY: MARTIN SMITH WORKSTATION ID: [id number] XRAY - FOOT 3V (AP, LATERAL & [...] ELECTRONICALLY SIGNED BY: MARTIN SMITH WORKSTATION ID: [id number] Allergies: Patient has no known allergies. Past [...] - Moderate. Do not drive or operate [employer] 6 Tablet 0 ALPRAZolam 0.5 mg Oral [...] Scales Flowsheet Row Evaluation from 06/12/2022 in [facility] Outpatient Rehab Evaluation from 11/21/2020in [facility] Outpatient Rehab Evaluation from 12/27/2019 in [facility] Outpatient Rehab Lower Extremity % of [...] Home Exercise Program: 1 1: Access Code: [email or web address] URL: [email or web address] Date: 07/10/2022 Prepared by: Marisol Morales Exercises [...] Charge ID Procedure Code Description Qty. Modifiers Wool Washing Machine Operator User Diagnosis [id number] [facility] PT INIT EVAL LOW 1 Marisol Morales PT [id number] [facility] PT EXERCISE 15 MIN 1 Marisol Morales PT [id number] [facility] PT MANUAL THERAPY 15 [...] patella documented in this encounter Care Teams Solar Sales Consultant Relationship Specialty Start Date End Date Ben Brown III, MD [address] [place] [phone] PCP - General Family Medicine 10/28/21 documented as of this encounter
--- OUTSIDE RECORDS SUMMARY | 2024-04-27 03:51 | XMS_ITS | Encounter Summary ---
Author Organization [facility] Address [address] [place] [address] Care Team Providers Care Advertising Coordinator Name Role Phone Collin Aburto MD Primary Care Provider [phone] Encounter Details Date Type Department Care Team (Latest Contact Info) Description 07/15/2011 9:45 EST - 07/15/2011 23:59 EST Hospital Encounter [facility] [address] [place] [address] Chester Myers MD 2 [facility] Medical Office Building, [address] [place] [phone] Discharge Disposition: Home or Self Care Social History Tobacco Use Types Packs/Day Years Used Date Smoking Tobacco: Never Assessed Sex and Gender Information Value Date Recorded Sex Assigned at Not on file Gender Identity Not on file Sexual Orientation Not on file documented as of this encounter Discharge Disposition Disposition Code Departure Means Destination Home or Self Usp documented in this encounter Plan of Treatment Not on file documented as of this encounter Visit Diagnoses Not on filedocumented in this encounter Care Teams Advertising Coordinator Relationship Specialty Start Date End Date Collin Aburto MD [address] [place] [address] PCP - General 01/28/11 documented as of this encounter
--- OUTSIDE RECORDS SUMMARY | 2024-04-27 03:51 | XMS_ITS | Encounter Summary ---
Author Organization [facility] Address [address] [place] [address] Care Team Providers Care Pitching Coach Name Role Phone Collin Aburto MD Primary Care Provider [phone] Encounter Details Date Type Department Care Team (Late st Contact Info) Description 12/03/2018 Results Only [facility] [phone] Chavo Busby MD [address] [place] [address] [address] [place], [place] [id number] Social History Tobacco Use Types Packs/Day Years [...] ? MADAN DENNIS ? Accession #: ? [id number] ? : ? 1945 (Age: 73) ??M [...] (ASCP) 12/06/2018 7:31 AM End of Report [facility] 12/03/2018 6:48 EDT 12/03/2018 6:48 EDT Chavo Busby MD PATHOLOGY [facility] [address] [place] [address] documented in this encounter Visit Diagnoses Not on filedocumented in this encounter Care Teams Pitching Coach Relationship Specialty Start Date End Date Collin Aburto MD [address] [place] [address] PCP - General 01/28/11 documented as of this encounter
--- OUTSIDE RECORDS SUMMARY | 2024-04-27 03:51 | XMS_ITS | Encounter Summary ---
Author Organization [facility] Address [address] [place] [address] Care Team Providers Care Fuel Cell Binder Name Role Phone Shara LEWIS MD, Ben Webb Primary Care Provider + Reason for Visit * Referral (Routine) - Closed Specialty Diagnoses / Procedures Referred By Tram griffin Referred To Contact Rehabilitation Diagnoses Plantar fasciitis Pain in right foot Pain in left foot Difficulty in walking, not elsewhere classified Muscle weakness (generalized) Procedures Outpatient Physical Therapy Evaluate and Treat Ben Olmedo III, MD [address] [place] [phone] Tn Op Physical Therapy [phone] [facility] [place] [address] Referral ID Status Reason Start Date Expiration Date Visits Re quested Visits Authorized [id number] Closed 06/12/2022 09/10/2022 10 10 Encounter Details Date Type Department Care Team (Latest Contact Info) Description 06/30/2022 1:47 PM HST - 06/30/2022 11:59 PM HST Hospital Encounter [facility] Outpatient Rehab [phone] [facility] [address] Marisol Morales, PT Discharge Disposition: [...] - Moderate. Do not drive or operate [employer] 6 Tablet 12/15/2021 eszopiclone (LUNESTA) 3 mg [...] Charge ID Procedure Code Description Qty. Modifiers Chief Engineer'S Helper User Diagnosis [id number] [facility] PT EXERCISE 15 MIN 2 Marisol Morales PT Signed by: Marisol Morales PT 1:1 Direct Physical Therapist Contact: Yes documented in this encounter Plan of Treatment Not on file documented as of this encounter Visit Diagnoses Not on filedocumented in this encounter Care Teams Fuel Cell Binder Relationship Specialty Start Date End Date Ben Olmedo III, MD [address] [place] [phone] PCP - General Family Medicine 10/28/21 documented as of this encounter
--- OUTSIDE RECORDS SUMMARY | 2024-04-27 03:51 | XMS_ITS | Encounter Summary ---
Author Organization [facility] Address [address] [place] [address] Care Team Providers Care Wafer Fab Operator Name Role Phone Collin Aburto MD Primary Care Provider [phone] Encounter Details Date Type Department Care Team (Latest Contact Info) Description 12/03/2018 13:23 EDT - 12/03/2018 23:59 EDT Hospital Encounter [facility] - [address] [address] Unknown, ProviderMD Discharge Disposition: Home or Self [...] Code Departure Means Destination Home or Self Mcfp documented in this encounter Plan of Treatment Not on file documented as of this encounter Visit Diagnoses Not on filedocumented in this encounter Care Teams Wafer Fab Operator Relationship Specialty Start Date End Date Collin Aburto MD [address] [place] [address] PCP - General 01/28/11 documented as of this encounter
--- OUTSIDE RECORDS SUMMARY | 2024-04-27 03:52 | XMS_ITS | Encounter Summary ---
Author Organization [facility] Address [address] [place] [address] Care Team Providers Care Hyperion Essbase Developer Name Role Phone Shara LEWIS MD, Ben Webb Primary Care Provider + Encounter Details Date Type Department Care Team (Late st Contact Info) Description 01/15/2022 11:30 AM HST Telehealth [facility] [address] [place] [address] Bernie England MD [address] [place] [address] Restless leg syndrome (Primary Dx) Social History [...] Get your blood drawn before next visit. [facility] Clinic Information: Results: If you have [...] the office WAQAR or send me a [facility] message tolet me know that you are having problems with the medication. Contact: The best way to contact me is via the [employer] system. You can also contact me by calling our office at [phone]. Thank you for giving us the privilege of caring for you today! documented in this encounter Progress Notes * Bernie England MD - 01/15/2022 11:30 AM HST [facility] Telehealth Home Visit I performed a telemedicine visit using real-time, synchronous, two-way audiovisual teleconferencingtechnology. I personally interviewed and examined the patient and determined the plan of care. Originating Site: home visit Receiving Site: [facility] Patient: Jens Ayala : 1945 Date [...] for urinary retention. He has presented to [place] emergency department multiple times in the last [...] and does not use drugs. -Lives in [place] with , retired, originally from [place], moved to [place] in 1980s Allergies: No Known Allergies Medications: [...] time spent completing charting/documentation. Bernie England MD [facility] Multiple Sclerosis and Neuroimmunology documented in this encounter Plan of Treatment Scheduled Orders Name Type Priority Associated Diagnoses Orde r Schedule Ferritin Lab Routine Restless leg syndrome Expected: 01/15/2022, Expires: 01/15/2023 documented as of this encounter Visit Diagnoses Diagnosis Restless leg syndrome- Primary Restless legs syndrome (RLS) documented in this encounter Care Teams Hyperion Essbase Developer Relationship Specialty Start Date End Date Ben Olmedo III, MD [address] [place] [phone] PCP - General Family Medicine 10/28/21 documented as of this encounter
--- OUTSIDE RECORDS SUMMARY | 2024-04-27 03:52 | XMS_ITS | Encounter Summary ---
Author Organization [facility] Address [address] [place] [address] Care Team Providers Care Robotic Toy Inventor Name Role Phone Shara LEWIS MD, Ben [...] HST - 12/14/2021 12:[address] [facility] Emergency Dept [phone] [place] [address] Marlen Pruitt MD [phone] [facility] [place] [phone] Discharge Disposition: D/C Home, Self Care Social [...] Care Everywhere. * ACUTE HEMATURIA (DISCHARGE CARE) (ARMENIAN) documented in this encounter Medications at Time [...] 11:29 AM HST 76 year old male [facility] [id number] ED Date of Service: 12/14/2021 Arrival time:10:34 [...] HX ORTHOPEDIC SURGERY Right [address] [facility] MED PHYSICIAN Meds: Prior to Admission Medications Prescriptions Last [...] Follow up provider: Ben Olmedo III, MD [phone] [facility] [phone] Schedule an appointment as soon as possible for a visit in 2 days Krissy Alcantara MD [address] [place] [facility] [phone] As scheduled MARLEN PRUITT Physician 12/14/2021 11:33 [...] Blood Count 7.39 3.80 - 10.80 x10(3)/uL [facility] Red Blood Cell Count 4.42 4.00 - 6.20 x10(6)/uL [facility] Hemoglobin 14.1 13.7 - 17.5 g/dL [facility] Hematocrit 41.3 40.1 - 51.0 % [facility] MCV 93.4 79.4 - 98.4 fL [facility] MCH 31.9 26.0 - 34.0 pg [facility] MCHC 34.1 32.0 - 36.0 g/dL [facility] RDW 13.4 11.6 - 14.4 % [facility] Platelet Count 248 151 - 424 x10(3)/uL [facility] Imm Granulocyte 0.3 0.0 - 1.0 % [facility] Neutrophil 77.6(H) 34.0 - 72.0 % [facility] Lymphocyte 12.7 12.0 - 44.0 % [facility] Monocyte 7.2 0.0 - 12.0 % [facility] Eosinophil 1.8 0.0 - 7.0 % [facility] Basophil 0.4 0.0 - 2.0 % [facility] Abs Imm Granulo 0.02 0.0 - 0.10 x10(3)/uL [facility] Abs Neutrophils 5.74 1.56 - 6.20 x10(3)/uL [facility] Abs Lymphocytes 0.94(L) 1.18 - 3.74 x10(3)/uL [facility] 12/14/2021 10:5 8 AM HST 12/14/2021 11:04 AM HST Marlen Pruitt MD HEMATOLOGY-ORDERABLE [facility] [phone] [place] [address] [facility] [phone] [place] [address] documented in this encounter Visit Diagnoses Diagnosis Hematuria, unspecified type- Primary documented in this encounter Care Teams Robotic Toy Inventor Relationship Specialty Start Date End Date Ben Olmedo III, MD [address] [place] [phone] PCP - General Family Medicine 10/28/21 documented as of this encounter
--- OUTSIDE RECORDS SUMMARY | 2024-04-27 03:52 | XMS_ITS | Encounter Summary ---
Author Organization [facility] Address [address] [place] [address] Care Team Providers Care Outside Parts Salesman Name Role Phone Shara LEWIS MD, Ben Webb Primary Care Provider + Reason for Referral * Imaging (Routine) - Closed Specialty Diagnoses / Procedures Referred By Contac t Referred To Contact Diagnoses White matter disease Procedures MRI - THORACIC SPINE WITHOUT AND WITH IV CONTRAST Bernie England MD [address] [address] Referral ID Status Reason Start Date Expiration Date Visits Re quested Visits Authorized [id number] Closed 12/11/2021 1 1 Reason for Visit * Imaging (Routine) - Closed Specialty Diagnoses / Procedures Referred By Contac t Referred To Contact Diagnoses White matter disease Procedures MRI - THORACIC SPINE WITHOUT AND WITH IV CONTRAST Bernie England MD [address] [address] Referral ID Status Reason Start Date Expiration Date Visits Re quested Visits Authorized [id number] Closed 12/11/2021 1 1 Encounter Details Date Type Department Care Team (Late st Contact Info) Description 12/19/2021 2:55 PM HST - 12/19/2021 11:59 PM HST Hospital Encounter [facility] MRI [phone] [facility] [place] [address] Bernie England MD [address] [address] Discharge Disposition: D/C Home, Self Care Social [...] - Moderate. Do not drive or operate [employer] 6 Tablet 12/15/2021 eszopiclone (LUNESTA) 3 mg [...] ELECTRONICALLY SIGNED BY: ??GIOVANY SEGOVIA WORKSTATION ID: [id number] Narrative 12/20/2021 10:39 AM HST Result Status: [...] ELECTRONICALLY SIGNED BY: GIOVANY [employer] WORKSTATION ID: [id number] Bernie England MD MRI-ORDERABLE documented in this [...] mmol documented in this encounter Care Teams Outside Parts Salesman Relationship Specialty Start Date End Date Ben Olmedo III, MD [address] [place] [phone] PCP - General Family Medicine 10/28/21 documented as of this encounter
--- OUTSIDE RECORDS SUMMARY | 2024-04-27 03:52 | XMS_ITS | Encounter Summary ---
Author Organization [facility] Address [address] [place] [address] Care Team Providers Care Sales Relationship Manager Name Role Phone Shara LEWIS MD, Ben Webb Primary Care Provider + Reason for Referral * Imaging (Routine) - Closed Specialty Diagnoses / Procedures Referred By Contac t Referred To Contact Diagnoses White matter disease Procedures MRI - CERVICAL SPINE WITHOUT AND WITH IV CONTRAST Bernie England MD [address] [address] Referral ID Status Reason Start Date Expiration Date Visits Re quested Visits Authorized [id number] Closed 12/11/2021 1 1 Reason for Visit * Imaging (Routine) - Closed Specialty Diagnoses / Procedures Referred By Contac t Referred To Contact Diagnoses White matter disease Procedures MRI - CERVICAL SPINE WITHOUT AND WITH IV CONTRAST Bernie England MD [address] [address] Referral ID Status Reason Start Date Expiration Date Visits Re quested Visits Authorized [id number] Closed 12/11/2021 1 1 Encounter Details Date Type Department Care Team (Late st Contact Info) Description 12/19/2021 2:56 PM HST - 12/19/2021 11:59 PM HST Hospital Encounter [facility] MRI [phone] [facility] [place] [address] Bernie England MD [address] [address] Discharge Disposition: D/C Home, Self Care Social [...] - Moderate. Do not drive or operate [employer] 6 Tablet 12/15/2021 eszopiclone (LUNESTA) 3 mg [...] 5:22 PM HST) Anatomical Region [facility]ality [facility] Resonan ce 12/19/2021 4:27 PM HST [...] ELECTRONICALLY SIGNED BY: ??GIOVANY SEGOVIA WORKSTATION ID: [id number] Narrative 12/20/2021 10:38 AM HST Result Status: [...] ELECTRONICALLY SIGNED BY: GIOVANY SEGOVIA WORKSTATION ID: [id number] Bernie England MD MRI-ORDERABLE documented in this encounter Visit Diagnoses Diagnosis White matter disease Other conditions of brain documented in this encounter Care Teams Sales Relationship Manager Relationship Specialty Start Date End Date Ben Olmedo III, MD [address] [place] [phone] PCP - General Family Medicine 10/28/21 documented as of this encounter
--- OUTSIDE RECORDS SUMMARY | 2024-04-27 03:52 | XMS_ITS | Encounter Summary ---
Author Organization [facility] Address [address] [place] [address] Care Team Providers Care Sales Enablement Specialist Name Role Phone Shara LEWIS MD, Ben Tracey Primary Care Provider + Reason for Visit * Auth/Cert Specialty Diagnoses / Procedures Referred By Tram griffin Referred To Contact Referral ID Status Reason Start Date Expiration Date Visits Re quested Visits Authorized [id number] 1 1 Encounter Details Date Type Department Care Team (Late st Contact Info) Description 01/09/2022 6:43 AM HST - 01/09/2022 10:55 AM T Hospital Encounter [facility] [phone] [place], [place] [address] Martin Smith MD [address] [facility] IMAGING DEPT [place], [place] [phone] White matter disease Discharge Disposition: D/C Home, [...] Care Everywhere. * LUMBAR PUNCTURE (DISCHARGE CARE) (LITHUANIAN) documented in this encounter Medications at Time [...] copy of advanced directives and power of title attorney papers DOS to be scanned into [...] - Moderate. Do not drive or operate [employer] 6 Tablet 0 ??? dutasteride (AVODART) 0.5 [...] - Moderate. Do not drive or operate [employer] 01/08/2022 at Unknown time 12/15/21 Yes Maddison [...] visible) Cardiovascular: WNL Respiratory: WNL Other: None [place] [employer] Anesthesiologists (ASA) Physical Status: 1 - Normal healthy patient Sedation Plan: Moderate Sedation: hypnotics and/or narcotics Patient interviewed and examined. Sedation plan including benefits, risks, and alternatives discussed with patient and/or patient's jewelry sales representative. All questions answered. He/she/they indicate [...] RN - 01/09/2022 10:57 AM HST Ride/responsible alliance party present with patient. Received discharge education [...] patient from OR. Identity verified with OR licensed occupational therapy assistant Sriram NEWMAN, antibiotics and IV fluids confirmed. Patient status stable, adequate ventilations, adequate circulation, no distress noted. Bedside report received from OR licensed occupational therapy assistant and Anesthesia provider, all questions answered. Patient [...] Martin Smith MD SPECIAL CHEMISTRY-OR DERABLE LAB [facility] [phone] [place] [address] [facility] [address] [place] [address] * (ABNORMAL) IgG Synthesis Rate (send-out test) [...] diagnosis of multiple sclerosis. Test Performed at: [facility] [address] ? I Carmen LU, PhD, CELIA 01/09/2022 10:3 5 AM HST 01/09/2022 10:48 AM HST Martin Smith MD REFERENCE LAB-[facility] Organization Address City/State/ZIP Co de Phone Number LAB [facility] [phone] [place] [address] [employer] [facility] [address] [place] [address] * Myelin Basic Protein, CSF (01/09/2022 9:40 AM HST) Myelin Basic Protein <2.0 mcg/L [facility] Comment: EXPECTED VALUES: 2.0-4.0 ?? MBP Result ? Interpretation ?? 2.0-4.0 mcg/L ?Negative ?? 4.1-6.0 mcg/L ?Weakly Positive ?>6.0 mcg/L ?Positive This test was developed and its analytical performance characteristics have been determined by [facility]. It has not been cleared or approved by FDA. This assay has been validated pursuant to the CLIA regulations and is used for clinical purposes. Test Performed at: [facility] [address] ? I Carmen LU, PhD, CELIA Cerebrospinal fluid specimen (specimen) CEREBROSPINAL FLUID SPECIMEN / Unknown 01/09/2022 9:40 AM HST 01/09/2022 10:47 AM HST Martin Smith MD BODY FLUID-ORDERABLE LAB [facility] [phone] [place] [address] [facility] [address] [place] [address] * (ABNORMAL) Oligoclonal Bands, CSF (01/09/2022 9:40 [...] bands due to local production in the REPAIR DEPARTMENT SUPERVISOR, serum and CSF should be tested simultaneously. Oligoclonal bands can however be observed in a variety of other diseases, e.g., subacute sclerosing panencephalitis, inflammatory polyneuropathy, REPAIR DEPARTMENT SUPERVISOR lupus, and brain tumors and infarctions. The clinical significance of a numerical band count, determined by isoelectric focusing, has not been definitively defined. The data should be interpreted in conjunction with all pertinent clinical and laboratory data for this patient. Test Performed at: [facility] [address] ??[id number] ? I Carmen LU, PhD, CELIA Cerebrospinal fluid specimen (specimen) CEREBROSPINAL FLUID SPECIMEN / Unknown 01/09/2022 9:40 AM HST 01/09/2022 10:46 AM HST Martin Smith MD BODY FLUID-ORDERABLE [facility] [phone] [place] [address] [facility] [address] [place] [address] * Cell Count, Spinal Fluid (01/09/2022 9:40 AM HST) Tube No. 4 [facility] Color COLORLESS DLS [facility] Appearance CLEAR DLS [facility] Supernatant COLORLESS/ROSE MARIE R DLS [facility] RBC 7 /cu mm DLS [facility] WBC 2 /cu mm D[facility] Neutrophils 10 % DLS [facility] Lymphocytes 80 % DLS [facility] Monocytes 10 % DLS [facility] Cerebrospinal fluid specimen (specimen) CEREBROSPINAL FLUID SPECIMEN / Unknown 01/09/2022 9:40 AM HST 01/09/2022 10:47 AM HST Martin Smith MD BODY FLUID-ORDERABLE Performing Organization Address City/[facility]/ZIP Co de Phone Number LAB [facility] [phone] [facility] [place] [address] [facility] [phone] [place] [address] * IgG, CSF (01/09/2022 9:40 AM HST) IgG, CSF 2.8 mg/dL [facility] Comment: EXPECTED VALUES: 0.8-7.7 Test Performed at: [facility] [address] ??[id number] ? I Carmen LU, PhD, CELIA Cerebrospinal fluid specimen (specimen) CEREBROSPINAL FLUID SPECIMEN / Unknown 01/09/2022 9:40 AM HST 01/09/2022 10:46 AM HST Martin Smith MD BODY FLUID-ORDERABLE LAB [facility] [phone] [facility] [place] [address] [facility] [address] [place] [address] * Glucose, CSF (01/09/2022 9:40 AM HST) Glucose, CSF 59 mg/dL [facility] Comment: CSF glucose values are approximately 60% of the plasma values and should be compared to a plasma value for clinical interpretation. Cerebrospinal fluid specimen (specimen) CEREBROSPINAL FLUID SPECIMEN / Unknown 01/09/2022 9:40 AM HST 01/09/2022 10:47 AM HST Martin Smith MD BODY FLUID-ORDERABLE Performing Organization Address [facility] Co de Phone Number [facility] [phone] [facility] [place] [address] [facility] [phone] [facility] [place] [address] * Cell Count, Spinal Fluid (01/09/2022) Tube No. 1 DLS [facility] Color COLORLESS DLS [facility] Appearance CLEAR DLS [facility] Supernatant COLORLESS/ROSE MARIE R [facility] RBC 207 /cu mm DLS [facility] WBC 1 /cu mm [facility] Neutrophils 37 % [facility] Lymphocytes 43 % DLS [facility] Monocytes 17 % DLS [facility] Eosinophils 3 % DLS [facility] Cerebrospinal fluid specimen (specimen) CEREBROSPINAL FLUID SPECIMEN / Unknown 01/09/2022 01/09/2022 10:44 AM HST Martin Smith MD BODY FLUID-ORDERABLE Performing Organization Address [facility] Co de Phone Number [facility] [phone] [facility] [address] [facility] [phone] [facility] [place] [address] documented in this encounter Visit Diagnoses Not [...] RN) documented in this encounter Care Teams Sales Enablement Specialist Relationship Specialty Start Date End Date Ben Olmedo III, MD [address] [place] [phone] PCP - General Family Medicine 10/28/21 documented as of this encounter
--- OUTSIDE RECORDS SUMMARY | 2024-04-27 03:52 | XMS_ITS | Encounter Summary ---
Author Organization [facility] Address [address] [place] [address] Care Team Providers Care Rod Hanger Name Role Phone Shara LEWIS MD, Ben Webb Primary Care Provider + Reason for Referral * Imaging (Routine) - Closed Specialty Diagnoses / Procedures Referred By Tram griffin Referred To Contact Diagnoses White matter disease Procedures MRI - BRAIN WITHOUT AND WITH IV CONTRAST Bernie England MD [address] [facility] [address] [place] [address] Referral ID Status Reason Start Date Expiration Date Visits Re quested Visits Authorized [id number] Closed 10/07/2022 1 1 Encounter Details Date Type Department Care Team (Late st Contact Info) Description 02/04/2022 3:00 PM HST Telehealth [facility] [address] [place], [place] [phone] Bernie England MD [address] [place], [place] [phone] White matter disease (Primary Dx) Discharge Disposition: [...] received and that it is ready for cherry picker operator. Medication Side Effects/Reactions If you are concerned [...] your appointment, please call our office at [phone] 24 Hour Cancellation & ? No Show? [...] at least 24 hours in advance at [phone]. The staff or management would be happy to assist you in canceling or rescheduling your medical appointment. ALL APPOINTMENTS MUST BE CONFIRMED WITH OUR OFFICE. Failure to confirm your appointment will result in a canceled appointment without notice. Thank you for trusting your medical care to [facility]. We strive to best serve the needs of all of our patients. Thank you for giving us the privilege of caring for you today! documented in this encounter Progress Notes * Bernie England MD - 02/04/2022 3:00 PM HST [facility] Telehealth Home Visit I performed a telemedicine visit using real-time, synchronous, two-way audiovisual teleconferencingtechnology. I personally interviewed and examined the patient and determined the plan of care. Originating Site: home visit Receiving Site: [facility] Patient: Jens Ayala : 1945 Date [...] and does not use drugs. -Lives in [place] with , retired, originally from [place], moved to [place] in 1980s Allergies: No Known Allergies Medications: [...] diagnosis, however this would require travel to [facility]. We discussed implicationsof VEP and future MRI [...] time spent completing charting/documentation. Bernie England MD [facility] Multiple Sclerosis and Neuroimmunology documented in this encounter Plan of Treatment Scheduled Orders Name Type Priority Associated Diagnoses Orde r Schedule MRI - BRAIN WITHOUT AND WITH IV CONTRAST Imaging Routine White matter disease Expected: 10/07/2022, Expires: 02/04/2023 documented as of this encounter Visit Diagnoses Diagnosis White matter disease- Primary Other conditions of brain documented in this encounter Care Teams Rod Hanger Relationship Specialty Start Date End Date Ben Olmedo III, MD [address] [place] [address] PCP - General Family Medicine 10/28/21 documented as of this encounter
--- OUTSIDE RECORDS SUMMARY | 2024-04-27 03:52 | XMS_ITS | Encounter Summary ---
Author Organization [facility] Address [address] [place] [address] Care Team Providers Care Inspector Machine Parts Name Role Phone Shara LEWIS MD, Ben [...] HST - 12/15/2021 2:30 AM T Emergency [facility] Emergency Dept [phone] [place] [address] Maddison Hope MD [phone] [facility] [place] [place] [phone] Discharge Disposition: D/C Home, Self Care Social [...] through Care Everywhere. * Hematuria (AfterCare(R) Instructions(ER/ED)) (Egyptian) documented in this encounter Medications at Time [...] Jens Ayala, 76 year old male CSN: [id number] ED Date of Service: 12/15/2021 Arrival time:1:11 [...] mL INTRA OP PER MD Given 12/15/21 0110) Medical Decision Making: Scoring Tools: MDM Number [...] Follow up provider: Krissy Alcantara MD [address] [phone] Ben Olmedo III, MD [address] [place] [phone] On 12/16/2021 MADDISON HOPE Physician 12/15/2021 05:14 [...] TRENT) documented in this encounter Care Teams Inspector Machine Parts Relationship Specialty Start Date End Date Ben Olmedo III, MD [address] [place] [phone] PCP - General Family Medicine 10/28/21 documented as of this encounter
--- OUTSIDE RECORDS SUMMARY | 2024-04-27 03:52 | XMS_ITS | Encounter Summary ---
Author Organization [facility] Address [address] [place] [address] Care Team Providers Care Senior Mechanical Development Engineer Name Role Phone Shara LEWIS MD, Ben Webb Primary Care Provider + Reason for Referral * Imaging (Routine) - Closed Specialty Diagnoses / Procedures Referred By Tram griffin Referred To Contact Diagnoses Pain of both elbows Chronic pain of left knee Chondromalacia, patella, left Hamstring tendinitis of left thigh Procedures MRI - KNEE WITHOUT IV CONTRAST Joshua Patricio MD [phone] [facility] [address] [place] [address] [place] Mri [address] [place] [address] Referral ID Status Reason Start Date Expiration Date Visits Re quested Visits Authorized [id number] Closed 04/23/2022 1 1 Reason for Visit * Reason Comments Knee Pain F/U VISIT FOR LEFT K NEE PAIN Encounter Details Date Type Department Care Team (Late st Contact Info) Description 04/23/2022 2:15 PM HST Office Visit [facility] [phone] [facility] [address] [place], [place] [address] Joshua Patricio MD [phone] [facility] [address] [place] [address] Pain of both elbows (Primary Dx); Chronic [...] Left Knee MRI has been [facility] to [facility] Radiology Dept #[phone]. Once I get approval from your insurance, [...] extensive prostate treatment and [facility] with upcoming PSA pending. No Known Allergies [...] - Moderate. Do not drive or operate [employer] 6 Tablet 0 [DISCONTINUED] dutasteride (AVODART) 0.5 [...] ELECTRONICALLY SIGNED BY: ??GIOVANY SEGOVIA WORKSTATION ID: [id number] Narrative 06/25/2022 12:17 PM HST Result Status: [...] gastrocnemius and pes anserinus tendons are normal. [id number] signal infiltrates the quadriceps tendon indicating tendinosis. [...] ELECTRONICALLY SIGNED BY: GIOVANY SEGOVIA WORKSTATION ID: [id number] Joshua Patricio MD MRI-ORDERABLE documented in this [...] thigh documented in this encounter Care Teams Senior Mechanical Development Engineer Relationship Specialty Start Date End Date Ben Olmedo III, MD [address] [place] [phone] PCP - General Family Medicine 10/28/21 documented as of this encounter
--- OUTSIDE RECORDS SUMMARY | 2024-04-27 03:52 | XMS_ITS | Encounter Summary ---
Author Organization [facility] Address [address] [place] [address] Care Team Providers Care Transformer Coil Winder Name Role Phone Shara LEWIS MD, Ben Webb Primary Care Provider + Reason for Visit * Reason Onset Date Comments Other 04/23/2022 MRI Lt knee Encounter Details Date Type Department Care Team (Late st Contact Info) Description 04/23/2022 Telephone [facility] [phone] [facility] [address] [place], [place] [address] Racquel Clark Other (MRI Lt knee) Social [...] scheduled to complete MRI today, 06/25/22 at [facility]. A f/u appt has been scheduled with [...] Left Knee MRI has been sent to [facility] Radiology Dept #[phone]. Once I get approval from your insurance, [...] on filedocumented in this encounter Care Teams Transformer Coil Winder Relationship Specialty Start Date End Date Ben Olmedo III, MD [address] [place] [phone] PCP - General Family Medicine 10/28/21 documented as of this encounter
--- OUTSIDE RECORDS SUMMARY | 2024-04-27 03:52 | XMS_ITS | Encounter Summary ---
Author Organization The [facility] Address [address] [place] [address] Care Team Providers Care Manager Of Loss Prevention Operations Name Role Phone Shara LEWIS MD, Ben W Primary Care Provider + Reason for Visit * Auth/Cert Specialty Diagnoses / Procedures Referred By Tram griffin Referred To Contact Referral ID Status Reason Start Date Expiration Date Visits Re quested Visits Authorized [id number] 1 1 Encounter Details Date Type Department Care Team (Late st Contact Info) Description 01/09/2022 8:30 AM HST - 01/09/2022 9:35 AM HST Surgery [facility] [id number] [facility] [place] [address] Martin Smith MD [address] [facility] [address] IMAGING DEPT [place], [place] [phone] Lumbar Puncture with Fluoro Social History Tobacco [...] Care Everywhere. * LUMBAR PUNCTURE (DISCHARGE CARE) (VIETNAMESE) documented in this encounter Medications at Time [...] copy of advanced directives and power of senior trial attorney papers DOS to be scanned into [...] - Moderate. Do not drive or operate [employer] 6 Tablet 0 ??? dutasteride (AVODART) 0.5 [...] - Moderate. Do not drive or operate [employer] 01/08/2022 at Unknown time 12/15/21 Yes Maddison [...] visible) Cardiovascular: WNL Respiratory: WNL Other: None [place] Society of Anesthesiologists (ASA) Physical Status: 1 - Normal healthy patient Sedation Plan: Moderate Sedation: hypnotics and/or narcotics Patient interviewed and examined. Sedation plan including benefits, risks, and alternatives discussed with patient and/or patient's retail service representative. All questions answered. He/she/they indicate understanding [...] RN - 01/09/2022 10:57 AM HST Ride/responsible republican present with patient. Received discharge education and instructions and returned verbal understanding. Copy of instructions given. Patient received all belongings. Final vital signs stable. Pain goal met. Anesthesia evaluated patient and noted release for discharge. All questions answered, all needs met, escorted to car via wheelchair. * Jessica Ralph RN - 01/09/2022 10:12 AM HST Received patient from OR. Identity verified with OR school transportation supervisor Sriram NEWMAN, antibiotics and IV fluids confirmed. Patient status stable, adequate ventilations, adequate circulation, no distress noted. Bedside report received from OR school transportation supervisor and Anesthesia provider, all questions answered. Patient [...] Martin Smith MD SPECIAL CHEMISTRY-OR DERABLE LAB [facility] [phone] [place] [address] [facility] [address] [place] [address] * (ABNORMAL) IgG Synthesis Rate (send-out test) [...] diagnosis of multiple sclerosis. Test Performed at: [facility] [address] ? I Carmen LU, PhD, CELIA 01/09/2022 10:3 5 AM HST 01/09/2022 10:48 AM HST Martin Smith MD REFERENCE LAB-[facility] Organization Address City/State/ZIP Co de Phone Number [facility] [phone] [facility] [place] [address] [facility] [address] [place] [address] * Myelin Basic Protein, CSF (01/09/2022 9:40 AM HST) Myelin Basic Protein <2.0 mcg/L [facility] Comment: EXPECTED VALUES: 2.0-4.0 ?? MBP Result ? Interpretation ?? 2.0-4.0 mcg/L ?Negative ?? 4.1-6.0 mcg/L ?Weakly Positive ?>6.0 mcg/L ?Positive This test was developed and its analytical performance characteristics have been determined by [facility]. It has not been cleared or approved by FDA. This assay has been validated pursuant to the CLIA regulations and is used for clinical purposes. Test Performed at: [facility] [address] ? I Carmen LU, PhD, CELIA Cerebrospinal fluid specimen (specimen) CEREBROSPINAL FLUID SPECIMEN / Unknown 01/09/2022 9:40 AM HST 01/09/2022 10:47 AM HST Martin Smith MD BODY FLUID-ORDERABLE Performing Organization Address City/[facility]/ZIP Co de Phone Number LAB [facility] [phone] [place] [address] [facility] [address] [place] [address] * (ABNORMAL) Oligoclonal Bands, CSF (01/09/2022 9:40 [...] bands due to local production in the RETAIL SERVICE REPRESENTATIVE, serum and CSF should be tested simultaneously. Oligoclonal bands can however be observed in a variety of other diseases, e.g., subacute sclerosing panencephalitis, inflammatory polyneuropathy, RETAIL SERVICE REPRESENTATIVE lupus, and brain tumors and infarctions. The clinical significance of a numerical band count, determined by isoelectric focusing, has not been definitively defined. The data should be interpreted in conjunction with all pertinent clinical and laboratory data for this patient. Test Performed at: [facility] [address] ??[id number] ? I Carmen LU, PhD, CELIA Cerebrospinal fluid specimen (specimen) CEREBROSPINAL FLUID SPECIMEN / Unknown 01/09/2022 9:40 AM HST 01/09/2022 10:46 AM HST Martin Smith MD BODY FLUID-ORDERABLE Performing Organization Address City/[facility]/ZIP Co de Phone Number [facility] [phone] [place] [address] [facility] [address] [place] [address] * Cell Count, Spinal Fluid (01/09/2022 9:40 AM HST) Tube No. 4 DLS [facility] Color COLORLESS DLS [facility] Appearance CLEAR DLS [facility] Supernatant COLORLESS/ROSE MARIE R DLS [facility] RBC 7 /cu mm DLS [facility] WBC 2 /cu mm [facility] Neutrophils 10 % [facility] Lymphocytes 80 % [facility] Monocytes 10 % D[facility] Cerebrospinal fluid specimen (specimen) CEREBROSPINAL FLUID SPECIMEN / Unknown 01/09/2022 9:40 AM HST 01/09/2022 10:47 AM HST Martin Smith MD BODY FLUID-ORDERABLE Performing Organization Address City/[facility]/ZIP Co de Phone Number LAB [facility] [phone] [place] [address] [facility] [phone] [facility] [address] * IgG, CSF (01/09/2022 9:40 AM HST) IgG, CSF 2.8 mg/dL [facility] Comment: EXPECTED VALUES: 0.8-7.7 Test Performed at: [facility] [address] ??[id number] ? I Carmen LU, PhD, CELIA Cerebrospinal fluid specimen (specimen) CEREBROSPINAL FLUID SPECIMEN / Unknown 01/09/2022 9:40 AM HST 01/09/2022 10:46 AM HST Martin Smith MD BODY FLUID-ORDERABLE LAB [facility] [phone] [place] [address] [facility] [address] [place] [address] * Glucose, CSF (01/09/2022 9:40 AM HST) Glucose, CSF 59 mg/dL [facility] Comment: CSF glucose values are approximately 60% of the plasma values and should be compared to a plasma value for clinical interpretation. Cerebrospinal fluid specimen (specimen) CEREBROSPINAL FLUID SPECIMEN / Unknown 01/09/2022 9:40 AM HST 01/09/2022 10:47 AM HST Martin Smith MD BODY FLUID-ORDERABLE Performing Organization Address [facility] Co de Phone Number [facility] [phone] [facility] [place] [address] [facility] [phone] [facility] [place] [address] * Cell Count, Spinal Fluid (01/09/2022) Tube No. 1 DLS [facility] Color COLORLESS DLS [facility] Appearance CLEAR DLS [facility] Supernatant COLORLESS/ROSE MARIE R DLS [facility] RBC 207 /cu mm DLS [facility] WBC 1 /cu mm DLS [facility] Neutrophils 37 % [facility] Lymphocytes 43 % [facility] Monocytes 17 % DLS [facility] Eosinophils 3 % [facility] Cerebrospinal fluid specimen (specimen) CEREBROSPINAL FLUID SPECIMEN / Unknown 01/09/2022 01/09/2022 10:44 AM HST Martin Smith MD BODY FLUID-ORDERABLE Performing Organization Address [facility] Co de Phone Number [facility] [phone] [place] [address] [facility] [place] [phone] [facility] [address] documented in this encounter Visit Diagnoses Diagnosis [...] RN) documented in this encounter Care Teams Manager Of Loss Prevention Operations Relationship Specialty Start Date End Date Ben Olmedo III, MD [address] [place] [address] PCP - General Family Medicine 10/28/21 documented as of this encounter
--- OUTSIDE RECORDS SUMMARY | 2024-04-27 03:52 | XMS_ITS | Encounter Summary ---
Author Organization [facility] Address [address] [place] [address] Care Team Providers Care Filter Washer Name Role Phone Shara LEWIS MD, Ben W Primary Care Provider + Encounter Details Date Type Department Care Team (Late st Contact Info) Description 12/19/2021 Orders Only [facility] [address] [place] [address] Bernie England MD [address] [place] [address] White matter disease (Primary Dx) Social History [...] (01/06/2022 10:00 AM HST) Source NASOPHARYNGEAL DLS [facility] [employer] SARS CoV-2 (COVID-19) RT PCR NOT DETECTED NOT DETECTED [facility] Comment: [employer] 6800 COVID Results SARS-CoV-2 Nucleic Acid Amplification (NAAT; e.g., real time PCR) is authorized for use under the Food and Drug Administration's Emergency Use Authorization (EUA) and/or has been validated as a laboratory developed test (LDT) by [facility]. The performance characteristics have been verified by [facility]. Detected (positive) results are indicative of [...] observations, patient history, and epidemiological information. Swab (specimen) NASOPHARYNGEAL STRUCTURE / Unknown 01/06/2022 10:00 AM HST 01/06/2022 1:33 PM HST Bernie England MD MISC NON-BLOOD ORD ERABLE LAB DLS [facility] [address] [place] [address], [facility] [phone] [place] [address] [facility] CENTRAL LAB [address] [place] [address] documented in this encounter Visit Diagnoses Diagnosis White matter disease- Primary Other conditions of brain documented in this encounter Care Teams Filter Washer Relationship Specialty Start Date End Date Ben Olmedo III, MD [address] [place] [phone] PCP - General Family Medicine 10/28/21 documented as of this encounter
--- OUTSIDE RECORDS SUMMARY | 2024-04-27 03:52 | XMS_ITS | Encounter Summary ---
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 Pt had recent cystoscopy at the end of November. Encounter Details Date Type Department Care Team (Late st Contact Info) Description 01/16/2022 10:18 PM HST - 01/16/2022 11:55 PM HST Emergency [facility] Emergency Dept [phone] [facility] [address] Guanako Hernandez MD [phone] [facility] [place] [address] Blood in urine Discharge Disposition: D/C Home, [...] be sent through Care Everywhere. * Hematuria (Ibm Websphere Commerce Developer) (Lao) documented in this encounter Medications at Time [...] 11:40 PM HST 76 year old male [facility] [id number] ED Date of Service: 01/16/2022 Arrival time:10:16 PM Arrival mode: Walked CC: Chief Complaint Patient presents with ??? 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: Prior to Admission Medications Prescriptions [...] Result Value Color RESULT Appearance HAZY Specific [place] <1.005 (L) pH 6.0 Protein 2+ (H) [...] Follow up provider: Ben Olmedo III, MD [phone] [facility] [phone] GUANAKO HERNANDEZ Physician 01/18/2022 05:58 documented [...] (01/16/2022 10:45 PM HST) Report Status [facility] Urine Culture Details RESULT [facility] Comment: GROWTH AT 2 DAYS 1 1,000 - 10,000 ORGANISMS/ML 1 GRAM-POSITIVE ORGANISM Urine URINE SPECIMEN OBTAINED BY CLEAN CATCH PROCEDURE / Unknown 01/16/2022 10:45 PM HST 01/16/2022 11:01 PM HST Guanako Hernandez MD MICROBIOLOGY-ORDERAB LE LAB [facility] [address] [place] [address] [facility] [address] [place] [address] * (ABNORMAL) Urinalysis Reflex To C&S (01/16/2022 10:45 PM HST) Color RESULT [facility] Comment:PINK Appearance HAZY [facility] Specific [place] <1.005(L) 1.005 - 1.030 [facility] pH 6.0 5.0 - 7.5 [facility] Protein 2+(H) NEGATIVE [facility] Glucose NEG NEGATIVE [facility] Ketones NEG NEGATIVE [facility] Urobilinogen <2.0 <2.0 mg/dL mg/dL [facility] Bilirubin NEG NEGATIVE [facility] Blood LARGE(H) NEGATIVE [facility] Leukocyte Esterase SMALL(H) NEGATIVE [facility] Nitrite NEG NEGATIVE [facility] WBC 21-50(H) 0-5 WBC/hpf /hpf [facility] RBC 6-20(H) 0-2 RBC/hpf /hpf [facility] Bacteria NONE SEEN NONE /hpf [facility] Crystal, Amorphous PRESENT(H) NONE /hpf [facility] Urine Culture/Sensiti vity REFER TO THE MICROBIOLOGY SECTION OF REPORT [facility] Urine specimen (specimen) URINE SPECIMEN OBTAINED BY CLEAN CATCH PROCEDURE / Unknown 01/16/2022 10:45 PM HST 01/16/2022 11:10 PM HST Guanako Hernandez MD URINALYSIS-ORDERABLE [facility] [phone] [facility] [place] [address] [facility] [phone] [facility] [place] [address] * LABORATORY COMMENTS (01/16/2022 10:22 PM HST) Comments RESULT [facility] Comment: PROBLEM Issue: Leaked TESTS Canceled: ??UA, Complete, w/ Reflex to C&S Notified RESULT [facility] Comment: Notified:BUD ??Mcdowell: [id number]/[id number] By: IVAN Time: 2245 Date: 01/16/2022 01/16/2022 10:2 2 PM HST 01/16/2022 10:35 PM HST Guanako Hernandez MD BLOOD BANK TEST-ORDBrenda [facility] [phone] [facility] [place] [address] [facility] [address] [facility] [place] [address] documented in this encounter Visit Diagnoses Diagnosis Gross hematuria- Primary documented in this encounter Care Teams Armoured Corps Officer Relationship Specialty Start Date End Date Ben Olmedo III, MD [address] [place] [phone] PCP - General Family Medicine 10/28/21 documented as of this encounter
--- OUTSIDE RECORDS SUMMARY | 2024-04-27 03:52 | XMS_ITS | Encounter Summary ---
Author Organization [facility] Address [address] [place] [address] Care Team Providers Care Ladies' Locker Room Attendant Name Role Phone Shara LEWIS MD, Ben W Primary Care Provider + Reason for Visit * Reason Comments Blood in Urine Blood draining in ca theter Encounter Details Date Type Department Care Team (Late st Contact Info) Description 12/12/2021 11:03 AM HST - 12/12/2021 12:13 PM T Emergency [facility] Emergency Dept [phone] [facility] [place] [address] Case Mazariegos MD [phone] [facility] [place] [place] [phone] Discharge Disposition: D/C Home, Self Care Social [...] Jens Ayala, 76 year old male CSN: [id number] ED Date of Service: 12/12/2021 Arrival time:10:48 [...] Clinical Impression: Mathew catheter problem, initial encounter ([facility]) (primary encounter diagnosis) Disposition: ED Dispo & COD ED Disposition Discharge Condition -- Date/Time Naomy Dec 12, 2021 11:44 AM Comment -- No discharge procedures on file. ED Prescriptions None Follow up provider: Alfa hWitten MD [address] [facility] 100 [facility] [phone] CASE ALMAZAN Physician 12/12/2021 13:33 * Vasu [...] Diagnoses Diagnosis Mathew catheter problem, initial encounter ([facility])- Primary documented in this encounter Care Teams Ladies' Locker Room Attendant Relationship Specialty Start Date End Date Ben Olmedo III, MD [address] [place] [phone] PCP - General Family Medicine 10/28/21 documented as of this encounter
--- OUTSIDE RECORDS SUMMARY | 2024-04-27 03:53 | XMS_ITS | Encounter Summary ---
Author Organization [facility] Address [address] [place] [address] Care Team Providers Care Roll Handler Name Role Phone Unavailable Primary Care Provider Unavailabl e Reason for Visit * Auth/Cert Specialty Diagnoses / Procedures Referred By Tram griffin Referred To Contact Referral ID Status Reason Start Date Expiration Date Visits Re quested Visits Authorized [id number] 1 1 Encounter Details Date Type Department Care Team (Late st Contact Info) Description 01/26/2020 8:27 AM HST - 01/26/2020 11:59 PM T Hospital Encounter [facility] Outpatient Rehab [address] [place] [address] [place] [address] [facility] [address] [place] [phone] Jenn Brewer, PT Discharge Disposition: Still A [...] Charge ID Procedure Code Description Qty. Modifiers Oil House Attendant User Diagnosis [id number] [facility] PT EXERCISE 15 MIN 3 Jenn Brewer PT [id number] [facility] PT MANUAL THERAPY 15 MIN 1 Jenn Brewer PT Signed by: Jenn Brewer PT documented in this encounter Plan of Treatment Not on file documented as of this encounter Visit Diagnoses Not on filedocumented in this encounter
--- OUTSIDE RECORDS SUMMARY | 2024-04-27 03:53 | XMS_ITS | Encounter Summary ---
Author Organization [facility] Address [address] [place] [address] Care Team Providers Care Audioprosthologist Name Role Phone Shara LEWIS MD, Ben Webb Primary Care Provider + Reason for Referral * Imaging (Routine) - Closed Specialty Diagnoses / Procedures Referred By Tram griffin Referred To Contact Diagnoses Multiple sclerosis (CMS/HCC) Other hereditary and idiopathic neuropathies Procedures MRI - BRAIN WITHOUT IV CONTRAST Ben Brown III, MD [address] [place] [phone] Referral ID Status Reason Start Date Expiration Date Visits Re quested Visits Authorized [id number] Closed 10/24/2021 1 1 Reason for Visit * Imaging (Routine) - Closed Specialty Diagnoses / Procedures Referred By Tram griffin Referred To Contact Diagnoses Multiple sclerosis (CMS/HCC) Other hereditary and idiopathic neuropathies Procedures MRI - BRAIN WITHOUT IV CONTRAST Ben Brown III, MD [address] [place] [phone] Referral ID Status Reason Start Date Expiration Date Visits Re quested Visits Authorized [id number] Closed 10/24/2021 1 1 Encounter Details Date Type Department Care Team (Late st Contact Info) Description 10/28/2021 10:00 AM HST - 10/28/2021 11:59 PM HST Hospital Encounter [facility] MRI [phone] [place] [address] Referring, Doctor, DO NOT change name. DO NOT not update address. If you do not know how to create a new referring physician, contact your supervisor home energy consultant. Discharge Disposition: D/C Home, Self Care Social [...] ELECTRONICALLY SIGNED BY: ??REJI SHELDON WORKSTATION ID: [id number] Narrative 10/28/2021 1:53 PM HST Result Status: [...] ELECTRONICALLY SIGNED BY: REJI SHELDON WORKSTATION ID: [id number] Ben Brown III, MD MRI-ORDERABLE documented in this encounter Visit Diagnoses Diagnosis Multiple sclerosis (CMS/HCC) Multiple sclerosis Other hereditary and idiopathic neuropathies documented in this encounter Care Teams Audioprosthologist Relationship Specialty Start Date End Date Ben Brown III, MD [address] [place] [phone] PCP - General Family Medicine 10/28/21 documented as of this encounter
--- OUTSIDE RECORDS SUMMARY | 2024-04-27 03:53 | XMS_ITS | Encounter Summary ---
Author Organization [facility] Address [address] [place] [address] Care Team Providers Care Gravity Prospector Name Role Phone Unavailable Primary Care Provider Unavailabl e Reason for Visit * Reason Comments Elbow Pain Left elbow pain; now experiencing pain in right elbow Encounter Details Date Type Department Care Team (Late st Contact Info) Description 09/18/2021 8:00 AM HST Office Visit [facility] [phone] [facility] [address] [place] [address] Zbigniew Saavedra MD [phone] [facility] [address] [place] [phone] Chronic elbow pain, left (Primary Dx); Medial [...]
--- OUTSIDE RECORDS SUMMARY | 2024-04-27 03:53 | XMS_ITS | Encounter Summary ---
Author Organization [facility] Address [address] [place] [address] Care Team Providers Care Engravings Polisher Name Role Phone Unavailable Primary Care Provider Unavailabl e Reason for Visit * Reason Comments Consult Right achilles tendo n pain. Self Referred. BCBS / MDCR Encounter Details Date Type Department Care Team (Late st Contact Info) Description 05/02/2020 11:00 AM HST Office Visit [facility] Clinic [phone] [facility] [address] [place] [address] Zbigniew Saavedra MD [phone] [facility] [address] [place] [phone] Achilles tendinosis of right lower extremity (Primary [...] file Gets together: Not on file Attends shinto service: Not on file Active member of [...] Testing: Xray - Heel Result Date: 05/02/2020 [facility] Specialty [facility] - Orthopedic Radiology Report Right calcaneus/heel x-ray [...]
--- OUTSIDE RECORDS SUMMARY | 2024-04-27 03:53 | XMS_ITS | Encounter Summary ---
Author Organization [facility] Address [address] [place] [address] Care Team Providers Care Explosive Operator Fuse Name Role Phone Unavailable Primary Care Provider Unavailabl e Reason for Visit * Auth/Cert Specialty Diagnoses / Procedures Referred By Tram griffin Referred To Contact Referral ID Status Reason Start Date Expiration Date Visits Re quested Visits Authorized [id number] 1 1 Encounter Details Date Type Department Care Team (Late st Contact Info) Description 02/14/2020 12:18 PM HST - 02/14/2020 11:59 PM HST Hospital Encounter [facility] Outpatient Rehab [address] [facility] [place] [address] Referring, Doctor, DO NOT change name. DO NOT not update address. If you do not know how to create a new referring physician, contact your blacksmith supervisor. Jenn Brewer, PT Discharge Disposition: Still [...] Charge ID Procedure Code Description Qty. Modifiers Cotton Weigher User Diagnosis [id number] [facility] PT EXERCISE 15 MIN 3 Jenn Brewer PT [id number] [facility] PT MANUAL THERAPY 15 MIN 1 Jenn Brewer PT Signed by: Jenn Brewer PT documented in this encounter Plan of Treatment Not on file documented as of this encounter Visit Diagnoses Not on filedocumented in this encounter
--- OUTSIDE RECORDS SUMMARY | 2024-04-27 03:53 | XMS_ITS | Encounter Summary ---
Author Organization [facility] Address [address] [place] [address] Care Team Providers Care Physician Assistant Psychiatry Name Role Phone Shara LEWIS MD, Ben W Primary Care Provider + Reason for Visit * Reason Comments Abdominal Pain Lower Abdominal pain / has paulson / poss kidney stone Encounter Details Date Type Department Care Team (Late st Contact Info) Description 11/03/2021 8:24 AM HST - 11/03/2021 10:57 AM HST Emergency [facility] Emergency Dept [phone] [facility] [place] [address] Guanako Hernandez MD [phone] [facility] [place] [address] Discharge Disposition: D/C Home, Self Care Social [...] - URINARY RETENTION IN MEN (DISCHARGE CARE) (PERSIAN) documented in this encounter Medications at Time [...] 10:46 AM HST 76 year old male [facility] [id number] ED Date of Service: 11/03/2021 Arrival time:8:16 [...] HX ORTHOPEDIC SURGERY Right 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: Prior to Admission Medications Prescriptions Last [...] None Follow up provider: Stevie Bethea MD [phone] [facility] [address] [facility] [phone] GUANAKO HERNANDEZ Physician 11/03/2021 10:46 * Nomi Narayan, RN - 11/03/2021 10:04 AM HST paulson irrigated / no blood clots documented in this encounter Plan of Treatment Not on file documented as of this encounter Visit Diagnoses Diagnosis Urinary retention- Primary Retention of urine, unspecified Hematuria, unspecified type Complication of Paulson catheter, subsequent encounter documented in this encounter Care Teams Physician Assistant Psychiatry Relationship Specialty Start Date End Date Ben Olmedo III, MD [address] [place] [phone] PCP - General Family Medicine 10/28/21 documented as of this encounter
--- OUTSIDE RECORDS SUMMARY | 2024-04-27 03:53 | XMS_ITS | Encounter Summary ---
Author Organization [facility] Address [address] [place] [address] Care Team Providers Care Prepared Foods Associate Name Role Phone Shara LEWIS MD, Ben Webb Primary Care Provider + Encounter Details Date Type Department Care Team (Late st Contact Info) Description 11/25/2021 - 11/25/2021 6:38 PM HST Emergency [facility] Emergency Dept [phone] [facility] [place] [address] Discharge Disposition: ED-Reg in Error Social History [...] on filedocumented in this encounter Care Teams Prepared Foods Associate Relationship Specialty Start Date End Date Ben Olmedo III, MD [address] [place] [phone] PCP - General Family Medicine 10/28/21 documented as of this encounter
--- OUTSIDE RECORDS SUMMARY | 2024-04-27 03:53 | XMS_ITS | Encounter Summary ---
Author Organization [facility] Address [address] [place] [address] Care Team Providers Care Carver And Checkerer Specials Name Role Phone Shara LEWIS MD, Ben [...] HST - 11/06/2021 8:41 PM T Emergency [facility] Emergency Dept [phone] [place] [address] Shawna Swanson MD [phone] [facility] [place] [phone] Discharge Disposition: D/C Home, Self Care Social [...] Paulson Catheter Placement and Care (AfterCare(R) Instructions(ER/ED)) (Bengali) documented in this encounter Medications at Time [...] Dean RN - 11/06/2021 8:24 PM HST Jens Ayala was discharged from [...] Jens Ayala, 76 year old male CSN: [id number] ED Date of Service: 11/06/2021 Arrival time:5:19 [...] that required previous surgery ([facility] surgery on [facility]). He recently developed signs of urinary obstruction. Urinalysis reviewed from 11/01 did not show signs of UTI and he denies any udeb-dgm-bsjwhhd decongestant use or known medications that can [...] Given 11/06/211933) Medical Decision Making: Scoring Tools: [facility] This is a 76yrM with hx of [...] Clinical Impression: Obstructed paulson catheter, initial encounter ([facility]) (primary encounter diagnosis) Disposition: ED Dispo & COD ED Disposition Discharge Condition -- Date/Time ThuNov 06, 2021 8:06 PM Comment -- No discharge procedures on file. ED Prescriptions None Follow up provider: Ben Olmedo III, MD [phone] [facility] [phone] SHAWNA SWANSON Physician 11/06/2021 20:18 * Patricia Rodriguez RN - 11/06/2021 5:42 PM HST Bladder scan volume showing 57mL documented in this encounter Plan of Treatment Not on file documented as of this encounter Visit Diagnoses Diagnosis Obstructed Paulson catheter, initial encounter ([facility])- Primary documented in this encounter Administered [...] RN) documented in this encounter Care Teams Carver And Checkerer Specials Relationship Specialty Start Date End Date Ben Olmedo III, MD [address] [place] [phone] PCP - General Family Medicine 10/28/21 documented as of this encounter
--- OUTSIDE RECORDS SUMMARY | 2024-04-27 03:53 | XMS_ITS | Encounter Summary ---
Author Organization [facility] Address [address] [place] [address] Care Team Providers Care Coatings Inspector Name Role Phone Shara LEWIS MD, Ben W Primary Care Provider + Reason for Visit * Reason Comments Retention, Urine Not able to get urin e out on straight cath. Has appt Thursday with urologist in [place]. Denies fevers. Encounter Details Date Type Department Care Team (Late st Contact Info) Description 11/25/2021 7:06 PM HST - 11/25/2021 8:05 PM HST Emergency [facility] Emergency Dept [phone] [facility] [place] [address] Desi Youngblood MD [phone] [facility] [place] [phone] Discharge Disposition: D/C Home, Self Care Social [...] 7:44 PM HST 76 year old male [facility] [id number] ED Date of Service: 11/25/2021 Arrival time:6:50 PM Arrival mode: Walked CC: Chief Complaint Patient presents with ??? Retention, Urine Not able to get urine out on straight cath. Has appt Thursday with urologist in [place]. Denies fevers. 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 Meds: Prior to Admission Medications Prescriptions Last [...] Follow up provider: Krissy Alcantara MD [address] [address] DESI YOUNGBLOOD Physician 11/26/2021 18:44 documented in this encounter Plan of Treatment Not on file documented as of this encounter Visit Diagnoses Diagnosis Urinary disorder- Primary Unspecified disorder of urethra and urinary tract documented in this encounter Care Teams Coatings Inspector Relationship Specialty Start Date End Date Ben Olmedo III, MD [address] [place] [phone] PCP - General Family Medicine 10/28/21 documented as of this encounter
--- OUTSIDE RECORDS SUMMARY | 2024-04-27 03:53 | XMS_ITS | Encounter Summary ---
Author Organization [facility] Address [address] [place] [address] Care Team Providers Care Vacuum Frame Operator Name Role Phone Shara LEWIS MD, Ben W Primary Care Provider + Reason for Visit * Reason Comments Knee Pain XRAY:9:30 left Knee Pain Referred by Dr. Olmedo MRI 01[facility]06[facility] Encounter Details Date Type Department Care Team (Late st Contact Info) Description 11/04/2021 10:00 AM HST Office Visit [facility] [phone] [facility] [address] [place] [address] Zbigniew Saavedra MD [phone] [facility] [address] [place] [phone] Left elbow pain (Primary Dx); Right elbow [...] Pain Referred by Dr. Olmedo MRI 01/06/2020 [facility] NGS 2nd [facility] Subjective: Jens Ayala is a 76 year [...] LAT, NOTCH & MERCHANT) Result Date: 11/04/2021 [facility] - Orthopedic Radiology Report Left knee x-rays [...] left documented in this encounter Care Teams Vacuum Frame Operator Relationship Specialty Start Date End Date Ben Olmedo III, MD [address] [place] [phone] PCP - General Family Medicine 10/28/21 documented as of this encounter
--- OUTSIDE RECORDS SUMMARY | 2024-04-27 03:53 | XMS_ITS | Encounter Summary ---
Author Organization [facility] Address [address] [place] [address] Care Team Providers Care Ammonium Nitrate Crystallizer Name Role Phone Unavailable Primary Care Provider Unavailabl e Reason for Visit * Reason Comments Followup Left knee pain, S/P custom prednisone. S/P PT for LBP Encounter Details Date Type Department Care Team (Late st Contact Info) Description 02/01/2020 1:30 PM HST Office Visit [facility] Clinic [phone] [facility] [address] [place] [address] Zbigniew Saavedra MD [phone] [facility] [address] [place] [phone] Chronic pain of left knee; Injury while [...] file Gets together: Not on file Attends latter-day service: Not on file Active member of [...]
--- OUTSIDE RECORDS SUMMARY | 2024-04-27 03:53 | XMS_ITS | Encounter Summary ---
Author Organization [facility] Address [address] [place] [address] Care Team Providers Care Municipal Bond Trader Name Role Phone Unavailable Primary Care Provider Unavailabl e Reason for Visit * Reason Comments Elbow Pain LEFT elbow pain Encounter Details Date Type Department Care Team (Late st Contact Info) Description 04/29/2021 2:30 PM HST Office Visit [facility] Orthopedics Clinic [phone] [facility] [address] [place] [address] Zbigniew Saavedra MD [phone] [facility] [address] [place] [phone] Chronic elbow pain, left (Primary Dx); Medial [...] and Family: Not on file ??? Attends Sikh Services: Not on file ??? Active Member [...] LATERAL & OBLIQUE) Result Date: 04/30/2021 [facility] - Orthopedic Radiology Report Left [...]
--- OUTSIDE RECORDS SUMMARY | 2024-04-27 03:53 | XMS_ITS | Encounter Summary ---
Author Organization [facility] Address [address] [place] [address] Care Team Providers Care Armored Car Guard Name Role Phone Unavailable Primary Care Provider Unavailabl e Reason for Visit * Auth/Cert Specialty Diagnoses / Procedures Referred By Tram griffin Referred To Contact Referral ID Status Reason Start Date Expiration Date Visits Re quested Visits Authorized [id number] 1 1 Encounter Details Date Type Department Care Team (Late st Contact Info) Description 02/07/2020 11:17 AM HST - 02/07/2020 11:59 PM T Hospital Encounter [facility] Outpatient Rehab [phone] [facility] [place] [address] Referring, Doctor, DO NOT change name. DO NOT not update address. If you do not know how to create a new referring physician, contact your landscape supervisor. Jenn Brewer, PT Discharge Disposition: Still [...] Charge ID Procedure Code Description Qty. Modifiers Ion Implant Machine Operator User Diagnosis [id number] [facility] PT EXERCISE 15 MIN 3 Jenn Brewer PT [id number] [facility] PT MANUAL THERAPY 15 MIN 1 Jenn Brewer PT Signed by: Jenn Brewer PT documented in this encounter Plan of Treatment Not on file documented as of this encounter Visit Diagnoses Not on filedocumented in this encounter
--- OUTSIDE RECORDS SUMMARY | 2024-04-27 03:53 | XMS_ITS | Encounter Summary ---
Author Organization [facility] Address [address] [place] [address] Care Team Providers Care Data Base Administrator Name Role Phone Shara LEWIS MD, Ben W Primary Care Provider + Reason for Visit * Reason Comments Retention, Urine Paulson leaking and no t draining to bag. Encounter Details Date Type Department Care Team (Late st Contact Info) Description 12/09/2021 9:55 PM HST - 12/10/2021 2:26 AM HST Emergency [facility] Emergency Dept [phone] [facility] [place] [address] Vinny Garcia MD [phone] [facility] [place] [phone] Discharge Disposition: D/C Home, Self Care Social [...] * Paulson Catheter Placement and Care (References) (Telugu) documented in this encounter Medications at Time [...] Wt 72 kg (158 lb 11.2 oz) JwT390% BMI 21.52 kg/m?? The patient received the [...] Jens Ayala, 76 year old male CSN: [id number] ED Date of Service: 12/09/2021 Arrival time:9:09 [...] Follow up provider: Ben Olmedo III, MD [address] [place] [phone] VINNY GARCIA Physician 12/10/2021 01:59 * Jeannine [...] RN) documented in this encounter Care Teams Data Base Administrator Relationship Specialty Start Date End Date Ben Olmedo III, MD [address] [place] [phone] PCP - General Family Medicine 10/28/21 documented as of this encounter
--- OUTSIDE RECORDS SUMMARY | 2024-04-27 03:53 | XMS_ITS | Encounter Summary ---
Author Organization The [facility] Address [address] [place] [address] Care Team Providers Care Draw Fire Operator Name Role Phone Shara LEWIS MD, Ben Webb Primary Care Provider + Reason for Visit * Reason Comments Blood in Urine C/o blood in urine. First noted yesterday. Denies fever, dysuria Encounter Details Date Type Department Care Team (Late st Contact Info) Description 12/07/2021 7:05 AM HST - 12/07/2021 8:32 AM T Emergency [facility] Emergency Dept [phone] [facility] [place] [address] Dutch Whyte III, MD [phone] [facility] [place] [phone] Discharge Disposition: D/C Home, Self Care Social [...] * Urinary Retention in Men (AfterCare(R) Instructions(ER/ED)) (Omani) * Paulson Catheter Placement and Care (Care Specialist) (Omani) * Urinary Tract Infection in Men (AfterCare(R) Instructions(ER/ED)) (Omani) documented in this encounter Medications at Time [...] 7:46 AM HST 76 year old male [facility] [id number] ED Date of Service: 12/07/2021 Arrival time:6:56 [...] HX ORTHOPEDIC SURGERY Right 2009 T[address] ELBOW VENDETTE Meds: Prior to Admission Medications Prescriptions Last [...] Result Value Color ORANGE Appearance CLOUDY Specific [place] 1.015 pH 6.0 Protein 1+ (H) Glucose [...] Follow up provider: Ben Olmedo III, MD [address] [place] [phone] Schedule an appointment as soon as [...] CE NTRAL LAB Urine Culture Details RESULT(A) [facility] Comment:1 50,000 - 100,000 O RGANISMS/ML Urine Culture Details STAPHYLOCOCCUS EPIDERMIDIS(A) [facility] Urine URINE SPECIMEN OBTAINED BY CLEAN CATCH PROCEDURE / Unknown 12/07/2021 7:19 AM HST 12/07/2021 7:19 AM [...] the microbiology laboratory, or contact ??the Microbiology Chip Unloader for consultation. Dutch Whyte III, MD MICROBIOLOGY-[facility] [address] [place] [address] [facility] [address] [place] [address] * (ABNORMAL) UA, Complete, Reflex to C & S (12/07/2021 7:19 AM HST) Color ORANGE [facility] Appearance CLOUDY [facility] Specific [place] 1.015 1.005 - 1.030 [facility] pH 6.0 5.0 - 7.5 [facility] Protein 1+(H) NEGATIVE [facility] Glucose NEG NEGATIVE [facility] Ketones NEG NEGATIVE [facility] Urobilinogen <2.0 <2.0 mg/dL mg/dL [facility] Bilirubin NEG NEGATIVE [facility] Blood LARGE(H) NEGATIVE [facility] Leukocyte Esterase SMALL(H) NEGATIVE [facility] Nitrite NEG NEGATIVE [facility] WBC 21-50(H) 0-5 WBC/hpf /hpf [facility] RBC >100(H) 0-2 RBC/hpf /hpf [facility] Bacteria FEW(H) NONE /hpf [facility] Urine Culture/Sensiti vity REFER TO THE MICROBIOLOGY SECTION OF REPORT [facility] Urine specimen (specimen) URINE SPECIMEN OBTAINED BY CLEAN CATCH PROCEDURE / Unknown 12/07/2021 7:19 AM HST 12/07/2021 7:27 AM HST Dutch Whyte III, MD URINALYSIS-ORDERA BLE [facility] [phone] [place] [address] [facility] [phone] [place] [address] documented in this encounter Visit Diagnoses Diagnosis Gross hematuria- Primary Urinary retention Retention of urine, unspecified Acute cystitis with hematuria Acute cystitis documented in this encounter Care Teams Draw Fire Operator Relationship Specialty Start Date End Date Ben Olmedo III, MD [address] [place] [phone] PCP - General Family Medicine 10/28/21 documented as of this encounter
--- OUTSIDE RECORDS SUMMARY | 2024-04-27 03:53 | XMS_ITS | Encounter Summary ---
Author Organization The [facility] Address [address] [place] [address] Care Team Providers Care Head Of Housekeeping Name Role Phone Unavailable Primary Care Provider Unavailabl e Reason for Referral * Referral (Routine) - Closed Specialty Diagnoses / Procedures Referred By Contac t Referred To Contact Rehabilitation Diagnoses Pain in left knee Stiffness of left knee, not elsewhere classified Difficulty in walking, not elsewhere classified Unilateral primary osteoarthritis, left knee Procedures Outpatient Physical Therapy Evaluate and Treat Jens Esposito MD [phone] [facility] [address] [phone] [facility] [phone] [place] [address] Referral ID Status Reason Start Date Expiration Date Visits Re quested Visits Authorized [id number] Closed 11/09/2020 2 2 Reason for Visit * Referral (Routine) - Closed Specialty Diagnoses / Procedures Referred By Contac t Referred To Contact Rehabilitation Diagnoses Pain in left knee Stiffness of left knee, not elsewhere classified Difficulty in walking, not elsewhere classified Unilateral primary osteoarthritis, left knee Procedures Outpatient Physical Therapy Evaluate and Treat Jens Esposito MD [phone] [phone] [facility] [phone] [facility] [place] [address] Referral ID Status Reason Start Date Expiration Date Visits Re quested Visits Authorized [id number] Closed 11/09/2020 2 2 Encounter Details Date Type Department Care Team (Late st Contact Info) Description 11/21/2020 8:30 AM HST - 11/21/2020 11:59 PM HST Hospital Encounter [facility] Outpatient Rehab [phone] [facility] [place] [address] Jens Esposito MD [phone] [facility] [address] [place] [phone] Jenn Brewer, PT Discharge Disposition: Still A [...] Service: 11/21/2020 Referring Physician / NPP: Jens Esposiot MD Referral / Medical Diagnosis: Osteoarthritis of [...] pain to improve overall functional outcomes. 11/21/2020 Credit Card Control Clerk Goals (see Duration below) 1) Patient will [...] with your patient. Please call me at [phone] if you haveany concerns. Jenn Brewer, PT SUBJECTIVE Patient is a 75 year old male with chief complaints of left knee pain affecting stand, walk and runactivity. He reports he has experienced a relapse/recovery emmonak about 4 times since last PT sessions but recently experienced increased pain post sprinting on a track.The pain is in the posterior lateral knee region. Date of referral: 11/08/20, onset a couple weeks ago Current functional limitation(s): stand, walk, run, squat, stair climb Prior to symptom onset, patient was able to perform the above listed functions with no restrictions. Preferred Language: Upper Sorbian [1] Patient / Caregiver Stated Goals: Decrease [...] Functional Outcome Scales Evaluation from 11/21/2020 in [facility] Outpatient Rehab Lower Extremity % of [...] Charge ID Procedure Code Description Qty. Modifiers Loan Documentation Specialist User Diagnosis [id number] [facility] PT EXERCISE 15 MIN 1 Jenn Brewer PT [id number] [facility] PT INIT EVAL LOW 1 Jenn [...]
--- OUTSIDE RECORDS SUMMARY | 2024-04-27 03:53 | XMS_ITS | Encounter Summary ---
Author Organization The [facility] Address [address] [place] [address] Care Team Providers Care Loan Operations Specialist Name Role Phone Unavailable Primary Care Provider Unavailabl e Reason for Visit * Reason Onset Date Comments Med Refill Req. 02/27/2020 Prednisone Encounter Details Date Type Department Care Team (Late st Contact Info) Description 02/27/2020 Refill [facility] General Surgery Clinic [id number] [place] [address] Kristen Couch Social History Tobacco Use Types [...] apart. May consider referring him to the [facility] pain clinic for evaluation and [...]
--- OUTSIDE RECORDS SUMMARY | 2024-04-27 03:53 | XMS_ITS | Encounter Summary ---
Author Organization The [facility] Address [address] [place] [address] Care Team Providers Care Fire Services Plumber Name Role Phone Shara LEWIS MD, Ben W Primary Care Provider + Reason for Visit * Reason Comments Blood in Urine Pt reports blood silverio ts in urine x2 days Encounter Details Date Type Department Care Team (Late st Contact Info) Description 11/01/2021 5:00 PM HST - 11/01/2021 8:25 PM HST Emergency [facility] Emergency Dept [phone] [facility] [address] Desi Youngblood MD [phone] [facility] [place] [phone] Discharge Disposition: D/C Home, Self Care Social [...] return back to the emergency room Call [facility] for an appointment next week documented [...] RN - 11/01/2021 5:19 PM HST 11/01/21 960 SDOH Screening Who is answering the SDOH [...] 11:45 AM HST 76 year old male [facility] [id number] ED Date of Service: 11/01/2021 Arrival time:4:57 [...] HX ORTHOPEDIC SURGERY Right 2009 T[address]IS ELBOW PACK OUT OPERATOR Meds: Prior to Admission Medications Prescriptions Last [...] Result Value Color BROWN Appearance CLOUDY Specific [place] 1.020 pH 6.0 Protein 2+ (H) Glucose [...] refractory urologist to follow-up with or the patient'[facility] care physician. The patient had [...] 11/01/2021 Desi Youngblood MD [facility] [address] [place] [id number] DESI YOUNGBLOOD Physician 11/06/2021 11:55 * Yuliya [...] (PSA) Reflex) (11/01/2021 7:35 PM HST) Pathologist [facility] PSA, Total 17.60(H) 0.00 - 6.90 ng/mL [facility] Comment: Age Group ? Age [...] Desi Youngblood MD SPECIAL CHEMISTRY-OR DERABLE LAB [facility] [phone] [place] [address] [facility] 02[address] [place] [address] * CBC W/ Diff and Platelet Count (11/01/2021 7:35 PM HST) White Blood Count 5.28 3.80 - 10.80 x10(3)/uL [facility] Red Blood Cell Count 4.36 4.00 - 6.20 x10(6)/uL [facility] Hemoglobin 13.8 13.7 - 17.5 g/dL [facility] Hematocrit 40.4 40.1 - 51.0 % [facility] MCV 92.7 79.4 - 98.4 fL [facility] MCH 31.7 26.0 - 34.0 pg [facility] MCHC 34.2 32.0 - 36.0 g/dL [facility] RDW 14.0 11.6 - 14.4 % [facility] Platelet Count 167 151 - 424 x10(3)/uL [facility] Imm Granulocyte 0.0 0.0 - 1.0 % [facility] Neutrophil 61.7 34.0 - 72.0 % [facility] Lymphocyte 30.1 12.0 - 44.0 % [facility] Monocyte 6.1 0.0 - 12.0 % [facility] Eosinophil 1.5 0.0 - 7.0 % [facility] Basophil 0.6 0.0 - 2.0 % [facility] Abs Imm Granulo 0.00 0.0 - 0.10 x10(3)/uL [facility] Abs Neutrophils 3.26 1.56 - 6.20 x10(3)/uL [facility] Abs Lymphocytes 1.59 1.18 - 3.74 x10(3)/uL [facility] 11/01/2021 7:35 PM HST 11/01/2021 7:38 PM HST Desi Youngblood MD HEMATOLOGY-ORDERABLE LAB [facility] [phone] [facility] Hollywoodemekaangella [place] [address] [facility] [phone] [place] [address] * (ABNORMAL) Basic Metabolic Panel (11/01/2021 7:35 PM HST) Pathologist [facility] Glucose 84 70 - 99 mg/dL [facility] BUN 19 6 - 23 mg/dL [facility] Creatinine 1.1 0.6 - 1.4 mg/dL [facility] eGFR CKD-EPI Cr 2020 70(L) >=90* mL/min/1.7 3m(2) [facility] Comment: *This CKD-EPI 2020 equation does not use a race coefficient and is not recommended for age less than 19 years. Sodium 139 133 - 145 mEq/L [facility] Potassium 4.0 3.3 - 5.1 mEq/L [facility] Chloride 104 95 - 108 mEq/L [facility] CO2 26 21 - 30 mEq/L [facility] Anion Gap 13(L) 14 - 20 mEq/L [facility] Calcium 8.8 8.3 - 10.5 mg/dL [facility] Blood specimen (specimen) 11/01/2021 7:35 PM HST 11/01/2021 7:38 PM HST Desi Youngblood MD CHEMISTRY-ORDERABLE LAB [facility] [phone] [place] [address] [facility] [phone] [place] [address] * (ABNORMAL) UA, Complete, Reflex to C & S (11/01/2021 5:50 PM HST) Color BROWN [facility] Appearance CLOUDY [facility] Specific [place] 1.020 1.005 - 1.030 [facility] pH 6.0 5.0 - 7.5 [facility] Protein 2+(H) NEGATIVE [facility] Glucose NEG NEGATIVE [facility] Ketones NEG NEGATIVE [facility] Urobilinogen <2.0 <2.0 mg/dL mg/dL [facility] Bilirubin SMALL(H) NEGATIVE [facility] Blood LARGE(H) NEGATIVE [facility] Leukocyte Esterase NEG NEGATIVE [facility] Nitrite NEG NEGATIVE [facility] WBC 0-2 0-5 WBC/hpf /hpf [facility] RBC >100(H) 0-2 RBC/hpf /hpf [facility] Bacteria NONE SEEN NONE /hpf [facility] Urine Culture/Sensitiv ity NOT INDICATED, LEUKOCYTE/ NITRITE SCREEN NEG [facility] Urine specimen (specimen) URINE SPECIMEN OBTAINED BY CLEAN CATCH PROCEDURE / Unknown 11/01/2021 5:50 PM HST 11/01/2021 6:03 PM HST Desi Youngblood MD URINALYSIS-ORDERABLE Performing Organization Address City/State/[facility] Co de Phone Number [facility] [phone] [place] [address] [facility] [phone] [place] [address] documented in this encounter Visit Diagnoses Diagnosis [...] at 1903, STAT, May turn urine orange. 190 (Given - Provid er: Dulce Maria Morrison RN) documented in this encounter Care Teams Fire Services Plumber Relationship Specialty Start Date End Date Ben Olmedo III, MD [address] [place] [address] PCP - General Family Medicine 10/28/21 documented as of this encounter
--- OUTSIDE RECORDS SUMMARY | 2024-04-27 03:53 | XMS_ITS | Encounter Summary ---
Author Organization The [facility] Address [address] [place] [address] Care Team Providers Care Transformation Consultant Name Role Phone Unavailable Primary Care Provider Unavailabl e Encounter Details Date Type Department Care Team (Late st Contact Info) Description 04/26/2021 Orders Only [facility] Orthopedics Clinic [phone] [facility] [address] [facility] [place]Jose[place] [address] Nelda Fernandes Pain (Primary Dx); Left elbow [...] other changes. Narrative 04/30/2021 1:20 PM HST [facility]ty [facility] - Orthopedic Radiology Report Zbigniew Saavedra MD XRAY-ORDERABLE documented in this encounter Visit Diagnoses Diagnosis Pain- Primary Generalized pain Left elbow pain Pain in joint, upper arm Left elbow pain Pain in joint, upper arm documented in this encounter
--- OUTSIDE RECORDS SUMMARY | 2024-04-27 03:53 | XMS_ITS | Encounter Summary ---
Author Organization [facility] Address [address] [place] [address] Care Team Providers Care Clinical Laboratory Aides Teacher Name Role Phone Shara LEWIS MD, Ben Webb Primary Care Provider + Encounter Details Date Type Department Care Team (Late st Contact Info) Description 11/20/2021 9:30 AM HST Ancillary Procedure [facility] Imaging Specialty [phone] [facility], [address] [place] [address] [place]ign[place] Saavedra [place] [phone] [facility] [address] [place] [address] Pain of both elbows Discharge [...] tissue unremarkable. Narrative 11/20/2021 1:21 PM HST [facility] Specialty Clinic - Orthopedic Radiology Report Zbigniew Saavedra MD XRAY-ORDERABLE documented in this encounter Visit Diagnoses Diagnosis Pain of both elbows Pain in joint, upper arm documented in this encounter Care Teams Clinical Laboratory Aides Teacher Relationship Specialty Start Date End Date Ben Olmedo III, MD [address] [place] [phone] PCP - General Family Medicine 10/28/21 documented as of this encounter
--- OUTSIDE RECORDS SUMMARY | 2024-04-27 03:53 | XMS_ITS | Encounter Summary ---
Author Organization The [facility] Address [address] [place] [address] Care Team Providers Care Mender Knit Goods Name Role Phone Unavailable Primary Care Provider Unavailabl e Encounter Details Date Type Department Care Team (Late st Contact Info) Description 05/02/2020 10:30 AM HST Ancillary Procedure [facility] Imaging Specialty [phone] [facility], [address] [place] [address] Zbigniew Saavedra MD [phone] [facility] [address] [facility] [place] [phone] Pain of right heel Discharge Disposition: D/C [...] also noted. Narrative 05/02/2020 11:20 AM HST [facility] Specialty [facility] - Orthopedic Radiology Report Zbigniew Saavedra MD XRAY-ORDERABLE documented in this encounter Visit Diagnoses Diagnosis Pain of right heel Pain in limb documented in this encounter
--- OUTSIDE RECORDS SUMMARY | 2024-04-27 03:53 | XMS_ITS | Encounter Summary ---
Author Organization The [facility] Address [address] [place] [address] Care Team Providers Care Service Electrician Name Role Phone Shara LEWIS MD, Ben W Primary Care Provider + Reason for Visit * Reason Comments Blood in Urine Self cath today and urine was the color of wine Encounter Details Date Type Department Care Team (Late st Contact Info) Description 11/08/2021 3:59 PM HST - 11/08/2021 5:01 PM HST Emergency [facility] Emergency Dept [phone] [facility] [place] [place] [address] Claude Stallworth MD [phone] [facility] [phone] Discharge Disposition: D/C Home, Self Care Social [...] Care Everywhere. * ACUTE HEMATURIA (DISCHARGE CARE) ([place]) documented in this encounter Medications at Time [...] Jens Ayala, 76 year old male CSN: [id number] ED Date of Service: 11/08/2021 Arrival time:3:08 [...] Follow up provider: Ben Olmedo III, MD [phone] [facility] [phone] Schedule an appointment as soon as possible for a visit [facility] Emergency Dept [phone] [facility] [address] As needed, If symptoms worsen CLAUDE STALLWORTH Physician 11/08/2021 17:17 * Carli Mckeon RN - 11/08/2021 5:01 PM HST Jens [...] Primary documented in this encounter Care Teams Service Electrician Relationship Specialty Start Date End Date Ben Olmedo III, MD [address] [place] [phone] PCP - General Family Medicine 10/28/21 documented as of this encounter
--- OUTSIDE RECORDS SUMMARY | 2024-04-27 03:53 | XMS_ITS | Encounter Summary ---
Author Organization The [facility] Address [address] [place] [address] Care Team Providers Care Varnish Mixer Name Role Phone Shara LEWIS MD, Ben W Primary Care Provider + Reason for Visit * Reason Comments Elbow Pain KALEB elbow pain, Rt>L t Encounter Details Date Type Department Care Team (Late st Contact Info) Description 11/20/2021 9:15 AM HST Office Visit [facility] Orthopedics Clinic [phone] [facility] [address] [place] [address] Zbigniew Saavedra MD [phone] [facility] [address] [place] [phone] Pain of both elbows (Primary Dx); Chronic [...] (AP, LATERAL & OBLIQUE) Result Date: 11/20/2021 [facility] - Orthopedic Radiology Report Left elbow x-ray [...] (AP, LATERAL & OBLIQUE) Result Date: 11/20/2021 [facility] - Orthopedic Radiology Report Right elbow x-rays [...] tissue unremarkable. Narrative 11/20/2021 1:21 PM HST [facility] - Orthopedic Radiology Report Zbigniew Saavedra MD [...] unremarkable. Narrative 11/20/2021 1:22 PM HST [facility] - Orthopedic Radiology Report Zbigniew [...] Arm documented in this encounter Care Teams Varnish Mixer Relationship Specialty Start Date End Date Ben Olmedo III, MD [address] [place] [phone] PCP - General Family Medicine 10/28/21 documented as of this encounter
--- OUTSIDE RECORDS SUMMARY | 2024-04-27 03:53 | XMS_ITS | Encounter Summary ---
Author Organization [facility] Address [address] [place] [address] Care Team Providers Care Spent Grain Dryer Name Role Phone Unavailable Primary Care Provider Unavailabl e Reason for Visit * Auth/Cert Specialty Diagnoses / Procedures Referred By Tram griffin Referred To Contact Referral ID Status Reason Start Date Expiration Date Visits Re quested Visits Authorized [id number] 1 1 Encounter Details Date Type Department Care Team (Late st Contact Info) Description 01/31/2020 10:27 AM HST - 01/31/2020 11:59 PM T Hospital Encounter [facility] Outpatient Rehab [id number] [facility] [place] [address] Referring, Doctor, DO NOT change name. DO NOT not update address. If you do not know how to create a new referring physician, contact your supervisor toy assembly. Jenn Brewer M, PT Discharge Disposition: Still [...] Charge ID Procedure Code Description Qty. Modifiers Publishing Specialist User Diagnosis [id number] [facility] PT EXERCISE 15 MIN 3 Jenn Brewer PT [id number] [facility] PT MANUAL THERAPY 15 MIN 1 Jenn Brewer PT Signed by: Jenn Brewer PT documented in this encounter Plan of Treatment Not on file documented as of this encounter Visit Diagnoses Not on filedocumented in this encounter
--- OUTSIDE RECORDS SUMMARY | 2024-04-27 03:53 | XMS_ITS | Encounter Summary ---
Author Organization The [facility] Address [address] [place] [address] Care Team Providers Care Jet Wiper Name Role Phone Unavailable Primary Care Provider Unavailabl e Reason for Visit * Auth/Cert Specialty Diagnoses / Procedures Referred By Tram griffin Referred To Contact Referral ID Status Reason Start Date Expiration Date Visits Re quested Visits Authorized [id number] 1 1 Encounter Details Date Type Department Care Team (Late st Contact Info) Description 02/02/2020 10:24 AM HST - 02/02/2020 11:59 PM T Hospital Encounter [facility] Outpatient Rehab [id number] [facility] [place] [address] Referring, Doctor, DO NOT change name. DO NOT not update address. If you do not know how to create a new referring physician, contact your processing supervisor. Jenn Brewer, PT Discharge Disposition: Still [...] Charge ID Procedure Code Description Qty. Modifiers District Fire Chief User Diagnosis [id number] [facility] PT EXERCISE 15 MIN 3 Jenn Brewer PT [id number] [facility] PT MANUAL THERAPY 15 MIN 1 Jenn Brewer PT Signed by: Jenn Brewer PT documented in this encounter Plan of Treatment Not on file documented as of this encounter Visit Diagnoses Not on filedocumented in this encounter
--- OUTSIDE RECORDS SUMMARY | 2024-04-27 03:53 | XMS_ITS | Encounter Summary ---
Author Organization [facility] Address [address] [place] [address] Care Team Providers Care Roll Reclaimer Name Role Phone Unavailable Primary Care Provider Unavailabl e Encounter Details Date Type Department Care Team (Late st Contact Info) Description 04/29/2021 2:00 PM HST Ancillary Procedure [facility] Imaging Specialty [phone] [facility], [address] [place] [address] Zbigniew Saavedra MD [phone] [facility] [address] [facility] [place] [phone] Left elbow pain Discharge Disposition: D/C Home, [...] other changes. Narrative 04/30/2021 1:20 PM HST [facility] Specialty [facility] - Orthopedic Radiology Report Zbigniew Saavedra MD XRAY-ORDERABLE documented in this encounter Visit Diagnoses Diagnosis Left elbow pain Pain in joint, upper arm documented in this encounter
--- OUTSIDE RECORDS SUMMARY | 2024-04-27 03:53 | XMS_ITS | Encounter Summary ---
Author Organization [facility] Address [address] [place] [address] Care Team Providers Care Director Of Assessment Name Role Phone Unavailable Primary Care Provider Unavailabl e Encounter Details Date Type Department Care Team (Late st Contact Info) Description 05/01/2020 Orders Only [facility] Orthopedics Clinic [id number] [facility] [address] [place] [address] Stephy Monet Pain of right heel (Primary [...] also noted. Narrative 05/02/2020 11:20 AM HST [facility] Specialty [facility] - Orthopedic Radiology Report Zbigniew Saavedra MD XRAY-ORDERABLE documented in this encounter Visit Diagnoses Diagnosis Pain of right heel- Primary Pain in limb Pain of right heel Pain in limb documented in this encounter
--- OUTSIDE RECORDS SUMMARY | 2024-04-27 03:53 | XMS_ITS | Encounter Summary ---
Author Organization [facility] Address [address] [place] [address] Care Team Providers Care Land Mobile Radio Technician Name Role Phone Shara LEWIS MD, Ben Webb Primary Care Provider + Encounter Details Date Type Department Care Team (Late st Contact Info) Description 11/20/2021 9:35 AM HST Ancillary Procedure [facility] Imaging Specialty [id number] [facility], [address] [place] [address] Zbigniew Saavedra MD [id number] [facility] [address] [place] [phone] Pain of both elbows Discharge [...] tissues unremarkable. Narrative 11/20/2021 1:22 PM HST [facility]ty Clinic - Orthopedic Radiology Report Zbigniew Saavedra MD XRAY-ORDERABLE documented in this encounter Visit Diagnoses Diagnosis Pain of both elbows Pain in joint, upper arm documented in this encounter Care Teams Land Mobile Radio Technician Relationship Specialty Start Date End Date Ben Olmedo III, MD [address] [place] [phone] PCP - General Family Medicine 10/28/21 documented as of this encounter
--- OUTSIDE RECORDS SUMMARY | 2024-04-27 03:53 | XMS_ITS | Encounter Summary ---
Author Organization [facility] Address [address] [place] [address] Care Team Providers Care Women'S Studies Lecturer Name Role Phone Shara LEWIS MD, Ben Webb Primary Care Provider + Reason for Referral * Imaging (Routine) - Closed Specialty Diagnoses / Procedures Referred By Contac t Referred To Contact Radiology Diagnoses White matter disease Procedures XRAY - LUMBAR PUNCTURE (DIAGNOSTIC) Kimberlee Simms MD [address] [address] [facility] [phone] [facility] [place] [address] Referral ID Status Reason Start Date Expiration Date Visits Re quested Visits Authorized [id number] Closed 12/11/2021 1 1 * Imaging (Routine) - Closed Specialty Diagnoses / Procedures Referred By Contac t Referred To Contact Diagnoses White matter disease Procedures MRI - THORACIC SPINE WITHOUT AND WITH IV CONTRAST Kimberlee Simms MD [address] [facility] [address] [place] [address] Referral ID Status Reason Start Date Expiration Date Visits Re quested Visits Authorized [id number] Closed 12/11/2021 1 1 * Imaging (Routine) - Closed Specialty Diagnoses / Procedures Referred By Tram t Referred To Contact Diagnoses White matter disease Procedures MRI - CERVICAL SPINE WITHOUT AND WITH IV CONTRAST Kimberlee Simms MD [address] [address] Referral ID Status Reason Start Date Expiration Date Visits Re quested Visits Authorized [id number] Closed 12/11/2021 1 1 Reason for Visit * Reason Comments Followup New Patient PCP DR. BROWN * Referral (Routine) - Closed Specialty Diagnoses / Procedures Referred By Tram griffin Referred To Contact Neuroscience Diagnoses Multiple sclerosis (CMS/HCC) Ben Brown III, MD [address] [place] [phone] - [address] [place] [id number] Referral ID Status Reason Start Date Expiration Date Visits Re quested Visits Authorized [id number] Closed 11/06/2021 1 1 Encounter Details Date Type Department Care Team (Late st Contact Info) Description 12/11/2021 8:00 AM HST Telehealth [facility] [address] [facility] [address] - [address] [place], [place] [phone] Kimberlee Simms MD [address] [phone] White matter disease (Primary Dx); Multiple sclerosis [...] for this procedure, fax the approval to [facility], then [facility] will call you to schedule this appointment. 3) Lumbar puncture. Our clinic will retrieve a prior authorization for this procedure, fax the approval to [facility], then [facility] will call you to schedule this appointment. 4) Our clinic will fax my note to Dr. Krissy Alcantara 5) Return to clinic after MRI is completed. Once you have a date for your MRI, please call our office to schedule a follow up appointment at [phone]. [facility] Clinic Information: Results: If you have completed [...] received and that it is ready for pickle solution maker. Medication Side Effects/Reactions: Stop taking your medication if you are concerned that you may be having an allergic reaction or if you are having significant side effects. Please call the office WAQAR or send me a [employer] Meg[employer] message tolet me know that you are having problems with the medication. Contact: The best way to contact me is via the [employer] system. You can also contact me by calling our office at [phone]. Thank you for giving us the privilege of caring for you today! documented in this encounter Progress Notes * Kimberlee Simms MD - 12/11/2021 8:00 AM HST [facility] Neuroscience [place] [facility] Home Visit I performed a telemedicine [...] for urinary retention. He has presented to [place] emergency department multiple times in the last [...] and does not use drugs. -Lives in [place] with , retired, originally from [place], moved to [place] in Allergies: No Known Allergies Medications: Prior [...] if patient is able to complete on [place] -CSF cell count with differential, glucose, protein, [...] time spent completing charting/documentation. Kimberlee Simms MD [facility] Multiple Sclerosis and Neuroimmunology documented [...] ELECTRONICALLY SIGNED BY: ??MARTIN SMITH WORKSTATION ID: [id number] Narrative 01/09/2022 10:52 AM HST Result Status: [...] ELECTRONICALLY SIGNED BY: MARTIN SMITH WORKSTATION ID: [id number] Kimberlee Simms MD XRAY-ORDERABLE * MRI - CERVICAL SPINE WITHOUT AND WITH IV CONTRAST (12/19/2021 5:22 PM HST) Anatomical Region Laterality Modality [facility] 12/19/2021 4:27 PM HST Impressions 12/20/2021 [...] ELECTRONICALLY SIGNED BY: ??GIOVANY LLANES WORKSTATION ID: [id number] Narrative 12/20/2021 10:38 AM HST Result Status: [...] ELECTRONICALLY SIGNED BY: GIOVANY LLANES WORKSTATION ID: [id number] Kimberlee Simms MD MRI-ORDERABLE * MRI - [...] ELECTRONICALLY SIGNED BY: ??GIOVANY LLANES WORKSTATION ID: [id number] Narrative 12/20/2021 10:39 AM HST Result Status: [...] ELECTRONICALLY SIGNED BY: GIOVANY LLANES WORKSTATION ID: [id number] Kimberlee Simms MD MRI-ORDERABLE * Part. Throm. Time (PTT) (12/13/2021 9:45 AM HST) PTT 33.4 23.5 - 37.8 secs [facility] [place] 12/13/2021 9:45 AM HST 12/13/2021 12:41 PM HST Kimberlee Simms MD COAGULATION-ORDERA BLE Performing Organization Address [facility] de Phone Number LAB [facility] AMB [phone] [place] [address], [facility] [address] [place] [address] * (ABNORMAL) Prothrombin Time (PT) (12/13/2021 9:45 AM HST) Protime 11.7(L) 11.8 - 14.[address] [facility] INR <1.0(L) [facility] Comment: Moderate-intensity Warfarin therapy ? 2.0-3.0 Higher-intensity Warfarin therapy ? 2.5-3.5 12/13/2021 9:45 AM HST 12/13/2021 12:41 PM HST Kimberlee Simms MD COAGULATION-ORDERA BLE Performing Organization Address [facility] de Phone Number LAB [facility] AMB [phone] [place], [place] [phone] [place], [place] [address] [place] [address] * Methylmalonic Acid, Serum (12/13/2021 9:45 AM HST) Methylmalonic Acid, Serum 190 nmol/L [facility] Comment: EXPECTED VALUES: [phone] ?? This test was developed and its analytical performance characteristics have been determined by [facility]. It has not been cleared or approved by FDA. This assay has been validated pursuant to the CLIA regulations and is used for clinical purposes. Test Performed at: [facility] [address], [place] ??[address] ? I Carmen LU, PhD, CELIA 12/13/2021 9:45 AM HST 12/13/2021 5:49 PM HST Kimberlee Simms MD [facility] [address]B [phone] [place] [address], [facility] [address] [place] [address] * VITAMIN B12/FOLATE LEVEL (12/13/2021 9:45 AM HST) Vitamin B12 364 232 - 1245 pg/mL [facility] Folate, Serum 8.3 >3.1 ng/mL [facility] 12/13/2021 9:45 AM HST 12/13/2021 5:49 PM HST Kimberlee Simms MD SPECIAL CHEMISTRY- ORDERABLE Performing Organization Address City/[facility]/ZIP Co de Phone Number LAB [facility] AMB [phone] [place] [address], [facility] CENTRAL LAB [phone] [place] [address] * TSH REFLEX TO FREE T4 (12/13/2021 9:45 AM HST) Pathologist [facility] TSH 1.96 0.27 - 4.20 uIU/mL [facility] 12/13/2021 9:45 AM HST 12/13/2021 12:41 PM HST Kimberlee Simms MD SPECIAL CHEMISTRY- ORDERABLE Performing Organization Address City/[facility]/ZIP Co de Phone Number LAB D[facility] AMB [address] [place] [address], [facility] [phone] [place] [address] * HIV-1/2 Ag/Ab with Reflex (12/13/2021 9:45 AM HST) HIV-1/2 Ag/Ab NEGATIVE NEGATIVE [facility] Blood specimen (specimen) 12/13/2021 9:45 AM HST 12/13/2021 5:49 PM HST Kimberlee Simms MD SPECIAL CHEMISTRY- ORDERABLE Performing Organization Address [facility] de Phone Number LAB [facility] AMB [phone] [place] [address], [facility] [phone] [place] [address] * RPR, Reflex to Titer (12/13/2021 9:45 AM HST) Pathologist [facility] RPR NON-REACTIV E NON-REACTI VE [facility] Blood specimen (specimen) 12/13/2021 9:45 AM HST 12/13/2021 5:49 PM HST Kimberlee Simms MD SPECIAL CHEMISTRY- ORDERABLE Performing Organization Address [facility] de Phone Number LAB D[facility] AMB [phone] [place] [address], [facility] [phone] [place] [address] * ANTI SSA/RO, SERUM (12/13/2021 9:45 AM HST) [facility] Anti SSA/Ro, Serum <0.2 <=0.9 NEGATIVE [facility] Comment: Interpretation: Antibody Index (AI) ??Explanation of Test Results ? <=0.9 ? Negative - No Antibody Detected >=1.0 ? Positive - Antibody Detected 12/13/2021 9:45 AM HST 12/13/2021 5:49 PM HST Kimberlee Simms MD SPECIAL CHEMISTRY- ORDERABLE Performing Organization Address [facility] Co de Phone Number LAB DLS AMB [phone] [place] [address], DLS [facility] [phone] [place] [address] * Anti-Nuclear Ab, IFA, Serum (12/13/2021 9:45 AM HST) Anti-Nuclear Ab Titer <40 = or < 40 [facility] 12/13/2021 9:45 AM HST 12/13/2021 5:49 PM HST Kimberlee Simms MD SPECIAL CHEMISTRY- ORDERABLE LAB [facility] AMB [phone] [place] [address], D[facility] [phone] [place] [address] documented in this encounter Visit Diagnoses Diagnosis White matter disease- Primary Other conditions of brain Multiple sclerosis (CMS/HCC) Multiple sclerosis White matter disease Other conditions of brain White matter disease Other conditions of brain documented in this encounter Care Teams Women'S Studies Lecturer Relationship Specialty Start Date End Date Ben Brown III, MD [address] [place] [phone] PCP - General Family Medicine 10/28/21 documented as of this encounter
--- OUTSIDE RECORDS SUMMARY | 2024-04-27 03:53 | XMS_ITS | Encounter Summary ---
Author Organization [facility] Address [address] [place] [address] Care Team Providers Care Outside Deliverer Name Role Phone Shara LEWIS MD, Ben Webb Primary Care Provider + Encounter Details Date Type Department Care Team (Late st Contact Info) Description 11/04/2021 9:30 AM HST Ancillary Procedure [facility] Imaging Specialty [id number] [facility], [address] [place] [address] Zbigniew Saavedra [place] [id number] [facility] [address] [place] [phone] Left knee pain, unspecified chronicity [...] tissue change. Narrative 11/04/2021 12:27 PM HST [facility] Specialty Clinic - Orthopedic Radiology Report Zbigniew Saavedra MD XRAY-ORDERABLE documented in this encounter Visit Diagnoses Diagnosis Left knee pain, unspecified chronicity documented in this encounter Care Teams Outside Deliverer Relationship Specialty Start Date End Date Ben Olmedo III, MD [address] [place] [phone] PCP - General Family Medicine 10/28/21 documented as of this encounter
--- OUTSIDE RECORDS SUMMARY | 2024-04-27 03:53 | XMS_ITS | Encounter Summary ---
Author Organization [facility] Address [address] [place] [address] Care Team Providers Care Mold Filler Plastic Dolls Name Role Phone Unavailable Primary Care Provider Unavailabl e Reason for Visit * Auth/Cert Specialty Diagnoses / Procedures Referred By Tram griffin Referred To Contact Referral ID Status Reason Start Date Expiration Date Visits Re quested Visits Authorized [id number] 1 1 Encounter Details Date Type Department Care Team (Late st Contact Info) Description 02/28/2020 12:24 PM HST - 02/28/2020 11:59 PM HST Hospital Encounter [facility]hab [id number] [facility] [place] [address] Referring, Doctor, DO NOT change name. DO NOT not update address. If you do not know how to create a new referring physician, contact your cabin cleaning supervisor. Jenn Brewer, PT Discharge Disposition: Still [...] length, noantalgia. ROM WNL.He has met most assisted goals: Semiautomatic Taper Operator Goals 1) Pt to demonstrate gait with [...] Charge ID Procedure Code Description Qty. Modifiers Energy Control Officer User Diagnosis [id number] HC PT EXERCISE 15 MIN 3 Jenn Brewer PT [id number] [facility] PT MANUAL THERAPY 15 MIN 1 Jenn Brewer, PT Signed by: Jenn Brewer PT documented in this encounter Plan of Treatment Not on file documented as of this encounter Visit Diagnoses Not on filedocumented in this encounter
--- OUTSIDE RECORDS SUMMARY | 2024-04-27 03:53 | XMS_ITS | Encounter Summary ---
Author Organization [facility] Address [address] [place] [address] Care Team Providers Care Can Patcher Name Role Phone Unavailable Primary Care Provider Unavailabl e Reason for Visit * Auth/Cert Specialty Diagnoses / Procedures Referred By Tram griffin Referred To Contact Referral ID Status Reason Start Date Expiration Date Visits Re quested Visits Authorized [id number] 1 1 Encounter Details Date Type Department Care Team (Late st Contact Info) Description 02/23/2020 10:21 AM HST - 02/23/2020 11:59 PM T Hospital Encounter [facility] Outpatient Rehab [id number] [facility] [place] [address] Referring, Doctor, DO NOT change name. DO NOT not update address. If you do not know how to create a new referring physician, contact your supervisor receiving and processing. Jenn Brewer, PT Discharge Disposition: Still A [...] Charge ID Procedure Code Description Qty. Modifiers Transit Survey Worker User Diagnosis [id number] [facility] PT EXERCISE 15 MIN 3 Jenn Brewer, PT [id number] HC PT MANUAL THERAPY 15 MIN 1 Jenn Brewer, PT Signed by: Jenn Brewer PT documented in this encounter Plan of Treatment Not on file documented as of this encounter Visit Diagnoses Not on filedocumented in this encounter
--- OUTSIDE RECORDS SUMMARY | 2024-04-27 03:53 | XMS_ITS | Encounter Summary ---
Author Organization The [facility] Address [address] [place] [address] Care Team Providers Care Petrophysicist Name Role Phone Shara LEWIS MD, Ben [...] HST - 12/09/2021 2:32 PM HST Emergency [facility] Emergency Dept [phone] [facility] [place] [address] Florence Pruitt MD [phone] [facility] [place] [phone] Discharge Disposition: D/C Home, Self Care Social [...] Urinary Tract Infection in Men (AfterCare(R) Instructions(ER/ED)) (Yoruba) documented in this encounter Medications at Time [...] Pending lab results and CT scan. * Lilian Greer RN - 12/09/2021 11:42 AM HST Pt using call light. States that the urine is coming out around new ward cath. Liquid noted on ground. Dr Pruitt updated. Pending new orders. 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 Patient connected to pulse oximetry and cardiac exercise physiologist Ward catheter irrigated, then exchanged Basic labs, [...] encounter diagnosis) Ward catheter problem, initial encounter ([facility]) Disposition: ED Dispo & COD ED Disposition [...] Follow up provider: Ben Olmedo III, MD [phone] [facility] [phone] Schedule an appointment as soon as [...] ELECTRONICALLY SIGNED BY: ??MARTIN SMITH WORKSTATION ID: [id number] Narrative 12/09/2021 1:50 PM HST Result Status: [...] ELECTRONICALLY SIGNED BY: MARTIN SMITH WORKSTATION ID: [id number] Florence Pruitt MD CAT SCAN-ORDERABLE * (ABNORMAL) PSA Total (Prostate Specific Ag (PSA), Total) (12/09/2021 11:55 AM HST) PSA, Total 23.50(H) 0.00 - 6.90 ng/mL [facility] Comment: Age Group ? Age [...] Florence Pruitt MD SPECIAL CHEMISTRY-OR DERABLE LAB [facility] [phone] [place] [address] [facility] [phone] [place] [address] * (ABNORMAL) CBC W/ Diff and Platelet Count (12/09/2021 11:55 AM HST) [facility] White Blood Count 6.51 3.80 - 10.80 x10(3)/uL [facility] Red Blood Cell Count 4.29 4.00 - 6.20 x10(6)/uL [facility] Hemoglobin 13.7 13.7 - 17.5 g/dL [facility] Hematocrit 40.5 40.1 - 51.0 % [facility] MCV 94.4 79.4 - 98.4 fL [facility] MCH 31.9 26.0 - 34.0 pg [facility] MCHC 33.8 32.0 - 36.0 g/dL [facility] RDW 14.1 11.6 - 14.4 % [facility] Platelet Count 195 151 - 424 x10(3)/uL [facility] Imm Granulocyte 0.2 0.0 - 1.0 % [facility] Neutrophil 76.2(H) 34.0 - 72.0 % [facility] Lymphocyte 14.7 12.0 - 44.0 % [facility] Monocyte 6.9 0.0 - 12.0 % [facility] Eosinophil 1.5 0.0 - 7.0 % [facility] Basophil 0.5 0.0 - 2.0 % [facility] Abs Imm Granulo 0.01 0.0 - 0.10 x10(3)/uL [facility] Abs Neutrophils 4.96 1.56 - 6.20 x10(3)/uL [facility] Abs Lymphocytes 0.96(L) 1.18 - 3.74 x10(3)/uL [facility] 12/09/2021 11:5 5 AM HST 12/09/2021 12:03 PM HST Florence Pruitt MD HEMATOLOGY-ORDERABLE LAB [facility] [phone] [place] [address] [facility] [phone] [facility] [place] [address] * (ABNORMAL) Comp. Metabolic Panel (12/09/2021 11:55 AM HST) Glucose 110(H) 70 - 99 mg/dL [facility] BUN 23 6 - 23 mg/dL [facility] Creatinine 1.1 0.6 - 1.4 mg/dL [facility] eGFR CKD-EPI Cr 2020 70(L) >=90* mL/min/1.7 3m(2) [facility] Comment: This CKD-EPI 2020 equation does not use a race coefficient. eGFR declines with age beginning at 40 years old, and it continues at a rate of approximately 10% per decade (Clin Kidney J.2017.10(4):545). Sodium 138 133 - 145 mEq/L [facility] Potassium 4.4 3.3 - 5.1 mEq/L [facility] Chloride 103 95 - 108 mEq/L [facility] CO2 23 21 - 30 mEq/L [facility] Anion Gap 16 14 - 20 mEq/L [facility] Calcium 9.3 8.3 - 10.5 mg/dL [facility] SGOT (AST) 18 0 - 40 IU/L [facility] SGPT (ALT) 18 0 - 41 IU/L [facility] Alkaline Phosphatase 126 35 - 129 IU/L [facility] Bilirubin, Total 0.4 0 - 1.2 mg/dL [facility] Total Protein 6.9 6.4 - 8.3 gm/dL [facility] Albumin 4.0 3.5 - 5.2 gm/dL [facility] Blood specimen (specimen) 12/09/2021 11:55 AM HST 12/09/2021 12:03 PM HST Florence Pruitt MD CHEMISTRY-ORDERABLE Performing Organization Address City/Va Hospital/ZIP Co de Phone Number LAB [facility] [phone] [facility] [place] [address] [facility] [phone] [place] [address] * Urine Culture, Cath (12/09/2021 11:50 AM HST) Report Status [facility] Urine Culture Details RESULT [facility] Comment:No growth (<1,000 or ganisms/ml) Urine URINE SPECIMEN OBTAINED VIA INDWELLING URINARY CATHETER / Unknown 12/09/2021 11:50 AM HST 12/09/2021 11:53 AM HST Florence Pruitt MD MICROBIOLOGY-ORDERAB LE Performing Organization Address [facility]/Va Hospital/[facility] Co de Phone Number LAB [facility] [phone] [facility] [place] [address] [facility] [phone] [place] [address] * (ABNORMAL) Urinalysis Reflex To C&S (12/09/2021 11:50 AM HST) Color YELLOW DLS [facility] Appearance CLOUDY DLS [facility] Specific [place] 1.015 1.005 - 1.030 DLS [facility] pH 5.5 5.0 - 7.5 [facility]LS [facility] Protein 2+(H) NEGATIVE DLS [facility] Glucose NEG NEGATIVE DLS [facility] Ketones NEG NEGATIVE D[facility] Urobilinogen <2.0 <2.0 mg/dL mg/dL [facility] Bilirubin NEG NEGATIVE DLS [facility] Blood LARGE(H) NEGATIVE DLS [facility] Leukocyte Esterase MOD(H) NEGATIVE DLS [facility] Nitrite NEG NEGATIVE [facility] WBC 21-50(H) 0-5 WBC/hpf /hpf [facility] RBC >100(H) 0-2 RBC/hpf /hpf [facility] Bacteria MANY(H) NONE /hpf [facility] Epit, Renal PRESENT(H) NONE /hpf [facility] Other RESULT [facility] Comment: Urine sediment results may not be accurate due to the small sample volume. ??Please correlate with the clinical findings and follow up as clinically indicated. Urine Culture/Sensiti vity REFER TO THE MICROBIOLOGY SECTION OF REPORT [facility] Urine specimen (specimen) URINE SPECIMEN OBTAINED VIA INDWELLING URINARY CATHETER / Unknown 12/09/2021 11:50 AM HST 12/09/2021 12:04 PM HST Florence Pruitt MD URINALYSIS-ORDERABLE [facility] [phone] [place] [address] [facility] [phone] [place] [address] documented in this encounter Visit Diagnoses Diagnosis Cystitis- Primary Cystitis, unspecified Ward catheter problem, initial encounter ([facility]) documented in this encounter Administered Medications Inactive [...] Clark) documented in this encounter Care Teams Petrophysicist Relationship Specialty Start Date End Date Ben Olmedo III, MD [address] [place] [address] PCP - General Family Medicine 10/28/21 documented as of this encounter
--- OUTSIDE RECORDS SUMMARY | 2024-04-27 03:53 | XMS_ITS | Encounter Summary ---
Author Organization [facility] Address [address] [place] [address] Care Team Providers Care Health Information Systems Technician Name Role Phone Shara LEWIS MD, Ben Webb Primary Care Provider + Reason for Visit * Reason Comments Tube replacement Patient states he lopez s leak in catheter ~30 minutes ago. Encounter Details Date Type Department Care Team (Late st Contact Info) Description 11/04/2021 2:04 PM HST - 11/04/2021 5:21 PM HST Emergency [facility] Emergency Dept [phone] [facility] [place] [address] Venu Whyte [phone] [facility] [place] [phone] Discharge Disposition: D/C Home, Self Care Social [...] Paulson Catheter Placement and Care (AfterCare(R) Instructions(ER/ED)) (Israeli) * Catheter-associated Urinary Tract Infection (AfterCare(R) Instructions(ER/ED)) (Israeli) documented in this encounter Medications at Time [...] - 11/04/2021 4:15 PM HST Irrigated catheter. Crockett urine to clear. No clots visualized. * Carli Mckeon RN - 11/04/2021 3:05 PM HST 16fr paulson dc'd intact with small blood clot noted at tip blocking catheter. 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: Prior to Admission Medications Prescriptions Last [...] type Obstruction of Paulson catheter, initial encounter ([facility]) Urinary tract infection associated with indwelling urethral catheter, initial encounter ([facility]) Diagnosis management comments: 76 yo M PMH [...] associated with indwelling urethral catheter, initial encounter ([facility]) (primary encounter diagnosis) Hematuria, unspecified type Obstruction of paulson catheter, initial encounter ([facility]) Disposition: ED Dispo & COD ED [...] Whyte Follow up provider: Stevie Bethea MD [phone] [facility], [address] [facility] [phone] follow up as scheduled VENU [...] (11/04/2021 3:10 PM HST) Report Status [facility]AL [facility] Urine Culture Details RESULT [facility] Comment:No growth (<1,000 or ganisms/ml) Urine URINE SPECIMEN OBTAINED VIA INDWELLING URINARY CATHETER / Unknown 11/04/2021 3:10 PM HST 11/04/2021 3:15 PM HST Veun Whyte MICROBIOLOGY-ORDERAB LE Performing Organization Address [facility]/State/ZIP Co de Phone Number LAB [facility] [phone] [place] [address] [facility] [phone] [place] [address] * (ABNORMAL) Urine Micro Only W/ Reflex to C&S (11/04/2021 3:10 PM HST) Color ORANGE DLS [facility] Appearance CLOUDY [facility] Microscopic RESULT DLS [facility] Comment: Unable to perform urinalysis dipstick due to significant color interference. ??Urinalysis changed to urine microscopic only. WBC 6-20(H) 0-5 WBC/hpf /hpf [facility] RBC >100(H) 0-2 RBC/hpf /hpf D[facility] Bacteria MANY(H) NONE /hpf [facility] Urine Culture/Sensiti vity REFER TO THE MICROBIOLOGY SECTION OF REPORT [facility] [place] [place] 11/04/2021 3:10 PM HST 11/04/2021 3:16 PM HST Venu Galaviz Pato URINALYSIS-ORDERABLE [facility] [phone] [facility] [address] [facility] [phone] [place] [address] * (ABNORMAL) CBC W/ Platelet Ct (11/04/2021 2:32 PM HST) White Blood Count 6.02 3.80 - 10.80 x10(3)/uL [facility] Red Blood Cell Count 4.40 4.00 - 6.20 x10(6)/uL [facility] Hemoglobin 13.8 13.7 - 17.5 g/dL [facility] Hematocrit 40.8 40.1 - 51.0 % [facility] MCV 92.7 79.4 - 98.4 fL [facility] MCH 31.4 26.0 - 34.0 pg [facility] MCHC 33.8 32.0 - 36.0 g/dL [facility] RDW 14.0 11.6 - 14.4 % [facility] Platelet Count 183 151 - 424 x10(3)/uL [facility] Imm Granulocyte 0.2 0.0 - 1.0 % [facility] Neutrophil 71.7 34.0 - 72.0 % [facility] Lymphocyte 18.6 12.0 - 44.0 % [facility] Monocyte 7.0 0.0 - 12.0 % [facility] Eosinophil 2.0 0.0 - 7.0 % [facility] Basophil 0.5 0.0 - 2.0 % [facility] Abs Imm Granulo 0.01 0.0 - 0.10 x10(3)/uL [facility] Abs Neutrophils 4.32 1.56 - 6.20 x10(3)/uL [facility] Abs Lymphocytes 1.12(L) 1.18 - 3.74 x10(3)/uL [facility] 11/04/2021 2:32 PM HST 11/04/2021 2:35 PM HST Venu Whyte HEMATOLOGY-ORDERABLE Performing Organization Address City/[facility]/ZIP Co de Phone Number LAB [facility] [phone] [place] [address] [facility] [phone] [place] [address] * (ABNORMAL) Basic Metabolic Panel (Lytes,BUN,Cre,Gluc,Ca+) (11/04/2021 2:32 PM HST) [facility] Glucose 112(H) 70 - 99 mg/dL [facility] BUN 22 6 - 23 mg/dL [facility] Creatinine 1.0 0.6 - 1.4 mg/dL [facility] eGFR CKD-EPI Cr 2020 78(L) >=90* mL/min/1.7 3m(2) [facility] Comment: *This CKD-EPI 2020 equation does not use a race coefficient and is not recommended for age less than 19 years. Sodium 140 133 - 145 mEq/L [facility] Potassium 4.4 3.3 - 5.1 mEq/L [facility] Chloride 106 95 - 108 mEq/L [facility] CO2 26 21 - 30 mEq/L [facility] Anion Gap 12(L) 14 - 20 mEq/L [facility] Calcium 9.1 8.3 - 10.5 mg/dL [facility] Blood specimen (specimen) 11/04/2021 2:32 PM HST 11/04/2021 2:35 PM HST Venu Whyte CHEMISTRY-ORDERABLE LAB [facility] [phone] [place] [address] [facility] [phone] [place] [address] documented in this encounter Visit Diagnoses Diagnosis Urinary tract infection associated with indwelling urethral catheter, initial encounter ([facility]) ([facility])- Primary Hematuria, unspecified type Obstruction of Paulson catheter, initial encounter ([facility]) documented in this encounter Administered Medications Inactive [...] RN) documented in this encounter Care Teams Health Information Systems Technician Relationship Specialty Start Date End Date Ben Olmedo III, MD [address] [place] [phone] PCP - General Family Medicine 10/28/21 documented as of this encounter
--- OUTSIDE RECORDS SUMMARY | 2024-04-27 03:53 | XMS_ITS | Encounter Summary ---
Author Organization [facility] Address [address] [place] [address] Care Team Providers Care Link Trainer Teacher Name Role Phone Shara LEWIS MD, Ben Webb Primary Care Provider + Encounter Details Date Type Department Care Team (Late st Contact Info) Description 11/04/2021 Orders Only [facility] Clinic [id number] [facility] [address] P[place]ING [place] [address] Indira Loomis Left knee pain, unspecified chronicity [...] tissue change. Narrative 11/04/2021 12:27 PM HST [facility] Specialty [facility] - Orthopedic Radiology Report Zbigniew Saavedra MD XRAY-ORDERABLE documented in this encounter Visit Diagnoses Diagnosis Left knee pain, unspecified chronicity- Primary Left knee pain, unspecified chronicity documented in this encounter Care Teams Link Trainer Teacher Relationship Specialty Start Date End Date Ben Olmedo III, MD [address] [place] [phone] PCP - General Family Medicine 10/28/21 documented as of this encounter
--- OUTSIDE RECORDS SUMMARY | 2024-04-27 03:53 | XMS_ITS | Encounter Summary ---
Author Organization [facility] Address [address] [place] [address] Care Team Providers Care Orientation And Mobility Instructor Name Role Phone Shara LEWIS MD, Ben [...] HST - 11/02/2021 9:29 PM HST Emergency [facility] Emergency Dept [phone] [facility] DE[place] [address] Win Galvez MD [phone] [facility] [place] [phone] Discharge Disposition: D/C Home, Self Care Social [...] Paulson Catheter Placement and Care (AfterCare(R) Instructions(ER/ED)) (Serbian) documented in this encounter Medications at Time [...] 9:20 PM HST 76 year old male [facility] [id number] ED Date of Service: 11/02/2021 Arrival time:8:03 [...] HX 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 ED Prescriptions None Follow up provider: [facility] [address] [place] [address] [place] [address] Schedule an appointment as soon as possible [...] (11/02/2021 8:40 PM HST) Comments RESULT [facility] Comment: PROBLEM Issue: Unnecessary collection TESTS Canceled: Notified RESULT [facility] Comment: Notified: NA ??Mcdowell: [id number]/[id number] By: NA Time: NA Date: 11/03/2021 11/02/2021 8:40 PM HST 11/03/2021 4:39 AM HST Win Galvez MD BLOOD BANK TEST-ORDBrenda BLAKE [facility] Organization Address City/State/ZIP Co de Phone Number [facility] [phone] [facility] [place] [address] [facility] [phone] [facility] [place] [address] documented in this encounter Visit Diagnoses Diagnosis [...] RN) documented in this encounter Care Teams Orientation And Mobility Instructor Relationship Specialty Start Date End Date Ben Olmedo III, MD [address] [place] [phone] PCP - General Family Medicine 10/28/21 documented as of this encounter
--- OUTSIDE RECORDS SUMMARY | 2024-04-27 03:53 | XMS_ITS | Encounter Summary ---
Author Organization [facility] Address [address] [place] [address] Care Team Providers Care Cloth Cutting Machine Operator Name Role Phone Shara LEWIS [...] HST - 12/10/2021 7:40 PM HST Emergency [facility] Emergency Dept [phone] [facility] [place] [address] Claude Matthew MD [phone] [facility] [place] [phone] Discharge Disposition: D/C Home, Self Care Social [...] Paulson Catheter Placement and Care (AfterCare(R) Instructions(ER/ED)) (Faroese) documented in this encounter Medications at Time [...] Jens Ayala, 76 year old male CSN: [id number] ED Date of Service: 12/10/2021 Arrival time:4:06 [...] Follow up provider: Ben Olmedo III, MD [phone] [facility] [phone] Schedule an appointment as soon as possible for a visit [facility] Emergency Dept [phone] [facility] [address] As needed, If symptoms worsen CLAUDE MATTHEW Physician 12/10/2021 20:26 documented in this encounter Plan of Treatment Not on file documented as of this encounter Visit Diagnoses Diagnosis Bladder pain- Primary Other symptoms involving urinary system documented in this encounter Care Teams Cloth Cutting Machine Operator Relationship Specialty Start Date End Date Ben Olmedo III, MD [address] [place] [phone] PCP - General Family Medicine 10/28/21 documented as of this encounter
--- OUTSIDE RECORDS SUMMARY | 2024-04-27 03:54 | XMS_ITS | Encounter Summary ---
Author Organization [facility] Address [address] [place] [address] Care Team Providers Care Golf Course Assistant Name Role Phone Unavailable Primary Care Provider Unavailabl e Reason for Visit * Referral (Routine) - Closed Specialty Diagnoses / Procedures Referred By Tram griffin Referred To Contact Radiology Procedures XR CHEST PA & LAT [facility] [phone] [facility] [place] [address] Referral ID Status Reason Start Date Expiration Date Visits Re quested Visits Authorized [id number] Closed 1 1 Encounter Details Date Type Department Care Team (Late st Contact Info) Description 07/20/2017 2:48 PM HST - 07/20/2017 11:59 PM HST Hospital Encounter [facility] Imaging Services [phone] [facility] [place] [address] Jens Esposito MD [phone] [phone] Discharge Disposition: D/C Home, Self Care Social [...]
--- OUTSIDE RECORDS SUMMARY | 2024-04-27 03:54 | XMS_ITS | Encounter Summary ---
Author Organization The [facility] Address [address] [place] [address] Care Team Providers Care Computing Consultant Name Role Phone Unavailable Primary Care Provider Unavailabl e Reason for Referral * Referral (Routine) - Closed Specialty Diagnoses / Procedures Referred By Tram griffin Referred To Contact Diagnoses Chronic pain of left knee Injury while running Procedures Outpatient Physical Therapy Evaluate and Treat Zbigniew Saavedra MD [phone] [facility] [place] [address] [place] [address] [facility] [phone] [facility] [place] [address] Referral ID Status Reason Start Date Expiration Date Visits Re quested Visits Authorized [id number] Closed 01/12/2020 10 10 Reason for Visit * Auth/Cert Specialty Diagnoses / Procedures Referred By Tram griffin Referred To Contact Referral ID Status Reason Start Date Expiration Date Visits Re quested Visits Authorized [id number] 1 1 Encounter Details Date Type Department Care Team (Late st Contact Info) Description 01/13/2020 10:30 AM HST - 01/13/2020 11:59 PM HST Hospital Encounter [facility] Outpatient Rehab [phone] [place], [place] [phone] Zbigniew Saavedra MD [phone] [facility] Kathryn [facility] [place] [address] Jenn Brewer, PT Discharge Disposition: Still A [...] Charge ID Procedure Code Description Qty. 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
--- OUTSIDE RECORDS SUMMARY | 2024-04-27 03:54 | XMS_ITS | Encounter Summary ---
Author Organization [facility] Address [address] [place] [address] Care Team Providers Care Foot Miter Operator Name Role Phone Unavailable Primary Care Provider Unavailabl e Encounter Details Date Type Department Care Team (Late st Contact Info) Description 12/28/2019 Orders Only [facility] Orthopedics Clinic [phone] [facility] [address] [facility], [place] [address] Stephy Monet Left knee pain, unspecified chronicity [...] especially posteriorly. Narrative 01/04/2020 10:35 AM HST [facility] Specialty [facility] - Orthopedic Radiology Report Zbigniew Saavedra MD XRAY-ORDERABLE documented in this encounter Visit Diagnoses Diagnosis Left knee pain, unspecified chronicity- Primary Left knee pain, unspecified chronicity documented in this encounter
--- OUTSIDE RECORDS SUMMARY | 2024-04-27 03:54 | XMS_ITS | Encounter Summary ---
Author Organization The [facility] Address [address] [place] [address] Care Team Providers Care Bonderizer Name Role Phone Unavailable Primary Care Provider Unavailabl e Reason for Visit * Reason Comments Retention, Urine Pt c/c of urgency to urinate with difficulty voiding x 1 week * Auth/Cert Specialty Diagnoses / Procedures Referred By Tram griffin Referred To Contact Diagnoses URINE RETENTION Referral ID Status Reason Start Date Expiration Date Visits Re quested Visits Authorized [id number] 1 1 Encounter Details Date Type Department Care Team (Late st Contact Info) Description 05/07/2016 7:15 PM HST - 05/07/2016 8:54 PM HST Emergency [facility] Emergency Dept 671129 [facility] [place] [address] [place], [place] 671122 [facility] [phone] Discharge Disposition: D/C Home, Self Care Social [...] confused or cannot think clearly. ?? 2016 [employer]. Information is for End User's use only and may not be sold, redistributed or otherwise used for commercial purposes. All illustrations and images included in CareNotes?? are the copyrighted property of [employer]. or [employer]. The above information is an senior service aide only. It is not intended as [...] you urinate. AFTER YOU LEAVE: Medicines: ?? 0-lmqur-zszqrgahe inhibitors: These medicines help decrease the size [...] very cloudy and smells bad. ?? 2011 [employer]. Information is for End User's use only and may not be sold, redistributed or otherwise used for commercial purposes. The above information is an senior service aide only. It is not intended as medical advice for individual conditions or treatments. Talk to your doctor, nurse or pharmacist before following any medical regimen to see if it is safe and effective for you. Urinary Tract Infection in Men MATERIAL INSPECTOR: A urinary tract infection (UTI) is caused [...] ask them during your visits. ?? 2015 [employer]. Information is for End User's use only and may not be sold, redistributed or otherwise used for commercial purposes. All illustrations and images included in CareNotes?? are the copyrighted property of [employer]. or [employer]. The above information is an senior service aide only. It is not intended as [...] 6:58 PM HST 70 year old male [facility] [id number] ED Date of Service: 05/07/2016 Arrival time:6:56 PM Arrival mode: Car CC: Chief Complaint Patient presents with ??? Retention, Urine Pt c/c of urgency to urinate with difficulty voiding x 1 week HPI: HPI : Urinary retention for a good week plus. In February did have a surgery performed by [facility] doctor. He has self cathed before [...] Result Value Color YELLOW Appearance HAZY Specific [place] 1.025 pH 5.5 Protein 100 (H) Glucose [...] hours. Follow up provider: Jens Esposito MD [phone] [phone] next week and see urologist [...] URINE CULTURE (05/07/2016 7:30 PM HST) Pathologist [facility] Collection Method CLEAN CATCH [facility] CENTRAL LAB Report Status FINAL [facility] CE NTRAL LAB Urine Culture Details RESULT [facility] CENTRAL LAB Comment:NO GROWTH AT 2 DAYS 05/07/2016 7:30 PM HST 05/07/2016 7:39 PM HST Jl Lee DO MICROBIOLOGY-ORDERAB LE LAB [facility] [phone] [facility] [place] [address] [facility] CENTRAL LAB [phone] [place] [address] * (ABNORMAL) Urinalysis Reflex To C&S (05/07/2016 7:30 PM HST) Pathologist [facility] Color YELLOW DLS [facility] Appearance HAZY DLS [facility] Specific [place] 1.025 1.005 - 1.030 [facility] pH 5.5 5 - 7.5 [facility] Protein 100(H) NEGATIVE mg/dl [facility] Glucose NEG NEGATIVE [facility] Ketones NEG NEGATIVE [facility] Urobilinogen 0.2 0.1 - 1.0 mg/dl [facility] Bilirubin NEG NEGATIVE [facility] Blood LARGE(H) NEGATIVE [facility] Leukocyte Esterase MOD(H) NEGATIVE [facility] Nitrite NEG NEGATIVE [facility] WBC >100(H) 0-5 WBC/hpf hpf [facility] RBC 21-50(H) 0-2 RBC/hpf hpf [facility] Bacteria OCC NONE [facility] Urine Culture/Sensiti vity REFER TO THE MICROBIOLOGY SECTION OF REPORT [facility] Urine specimen (specimen) URINE SPECIMEN OBTAINED BY CLEAN CATCH PROCEDURE / Unknown 05/07/2016 7:30 PM HST 05/07/2016 7:59 PM HST Jl Lee DO URINALYSIS-ORDERABLE [facility] [phone] [place] [address] [facility] [phone] [place] [address] documented in this encounter Visit Diagnoses Diagnosis [...] STAT, Will this medication be given during [facility] or [facility] inpatient visit or infusion treatment? No Given 05/07/2016 8:49 PM HST 500 mg documented in this encounter Active and Recently Administered Medications Times are shown in HST. Scheduled Medication Order 05/05/2016 05/06/2016 05/07/2016 levofloxacin tab 500 mg (NF) (CANCELED) Oral, DAILY (0900), First dose on Thu05/07/16 at 2031, Until Discontinued, STAT, Will this medication be given during [facility] or [facility] inpatient visit or infusion treatment? No 2048 (Given - Provid er: Stevie Baez) documented in this encounter
--- OUTSIDE RECORDS SUMMARY | 2024-04-27 03:54 | XMS_ITS | Encounter Summary ---
Author Organization [facility] Address [address] [place] [address] Care Team Providers Care Outside Solar Sales Consultant Name Role Phone Unavailable Primary Care Provider Unavailabl e Reason for Visit * (Routine) - Closed Specialty Diagnoses / Procedures Referred By Tram griffin Referred To Contact Radiology Procedures US BLADDER Nh Ultrasound [phone] [place] [address] Referral ID Status Reason Start Date Expiration Date Visits Re quested Visits Authorized [id number] Closed 1 1 Encounter Details Date Type Department Care Team (Latest Contact Info) Description 05/02/2016 2:04 PM HST - 05/02/2016 11:59 PM HST Hospital Encounter [facility] Ultrasound 6[address] [place] [address] Kemar Maddox MD [address] [address] (LIC EXP 09-30-17) [place] [phone] Discharge Disposition: D/C Home, Self Care Social [...] 05/02/2016 Result Status: Finalized Authenticating Radiologist: Shauna rBunson Requestor: KEMAR MADDOX Reason for Exam: W/POST [...]
--- OUTSIDE RECORDS SUMMARY | 2024-04-27 03:54 | XMS_ITS | Encounter Summary ---
Author Organization [facility] Address [address] [place] [address] Care Team Providers Care Senior Web Engineer Name Role Phone Unavailable Primary Care Provider Unavailabl e Reason for Visit * Reason Onset Date Comments Other 01/04/2020 LEFT knee MRI at [facility] per Dr. Saavedra Encounter Details Date Type Department Care Team (Late st Contact Info) Description 01/04/2020 Telephone [facility] Orthopedics Clinic [phone] [facility] [address] [place] [address] Stephy Monet Other (LEFT knee MRI at [facility] per Dr. Saavedra) Social History Tobacco Use [...]
--- OUTSIDE RECORDS SUMMARY | 2024-04-27 03:54 | XMS_ITS | Encounter Summary ---
Author Organization [facility] Address [address] [place] [address] Care Team Providers Care Dry Ice Maker Name Role Phone Unavailable Primary Care Provider Unavailabl e Reason for Visit * Referral (Routine) - Closed Specialty Diagnoses / Procedures Referred By Tram griffin Referred To Contact Radiology Procedures XR CHEST PA & LAT Nh Imaging Services [phone] [facility] [place] [address] Referral ID Status Reason Start Date Expiration Date Visits Re quested Visits Authorized [id number] Closed 1 1 Encounter Details Date Type Department Care Team (Late st Contact Info) Description 08/29/2019 1:33 PM HST - 08/29/2019 11:59 PM T Hospital Encounter [facility] Imaging Services [phone] [facility] [place] [address] Madan Esposito MD [phone] [phone] Discharge Disposition: D/C Home, Self Care Social [...]
--- OUTSIDE RECORDS SUMMARY | 2024-04-27 03:54 | XMS_ITS | Encounter Summary ---
Author Organization The [facility] Address [address] [place] [address] Care Team Providers Care Vacuum Tester Cans Name Role Phone Unavailable Primary Care Provider Unavailabl e Reason for Visit * Auth/Cert Specialty Diagnoses / Procedures Referred By Tram griffin Referred To Contact Referral ID Status Reason Start Date Expiration Date Visits Re quested Visits Authorized [id number] 1 1 Encounter Details Date Type Department Care Team (Late st Contact Info) Description 01/24/2020 10:29 AM HST - 01/24/2020 11:59 PM T Hospital Encounter [facility] Outpatient Rehab 671125 [place] [address] [place]igniew Saavedra MD [phone] [facility] [address] [facility] [place] [phone] Jenn Brewer, PT Discharge Disposition: Still A [...] Charge ID Procedure Code Description Qty. Modifiers Patrol Captain User Diagnosis [id number] [facility] PT EXERCISE 15 MIN 3 Jenn Brewer PT [id number] [facility] PT MANUAL THERAPY 15 MIN 1 Jenn Brewer PT Signed by: Jenn Brewer PT documented in this encounter Plan of Treatment Not on file documented as of this encounter Visit Diagnoses Not on filedocumented in this encounter
--- OUTSIDE RECORDS SUMMARY | 2024-04-27 03:54 | XMS_ITS | Encounter Summary ---
Author Organization [facility] Address [address] [place] [address] Care Team Providers Care Media Professional Name Role Phone Unavailable Primary Care Provider Unavailabl e Reason for Visit * Reason Comments Retention, Urine states needs a paulson . Recent prostate infection taking Levaquin for same. * Auth/Cert Specialty Diagnoses / Procedures Referred By Tram griffin Referred To Contact Diagnoses URINE RETENTION Referral ID Status Reason Start Date Expiration Date Visits Re quested Visits Authorized [id number] 1 1 Encounter Details Date Type Department Care Team (Late st Contact Info) Description 05/12/2016 12:43 PM HST - 05/12/2016 3:33 PM HST Emergency [facility] Emergency Dept [phone] [facility] [place] [address] Chester Child MD Discharge Disposition: D/C Home, [...] may also refer you toa urologist or survey research center director to have additional testing. Write down your [...] help decrease pain and swelling. ?? 2016 [employer]. Information is for End User's use only and may not be sold, redistributed or otherwise used for commercial purposes. All illustrations and images included in CareNotes?? are the copyrighted property of [employer], [employer]. or [employer]. The above information is an hearing aid fitter only. It is not intended as medical [...] RN - 05/12/2016 1:17 PM HST #14 Yakut paulson inserted. * Chester Child MD - 05/12/2016 12:48 PM HST 70 year old male [facility] [id number] ED Date of Service: 05/12/2016 Arrival time:10:42 AM Arrival mode: CC: Chief Complaint Patient presents with ??? Retention, Urine states needs a paulson. Recent prostate infection taking Levaquin for same. HPI: HPI : The patient is a 70-year-old male with history of benign prostatic hypertrophy who had a recent prostate vaporization procedure by his urologist Dr. Fernandez on [facility]. He presents here today with [...] Result Value Color YELLOW Appearance HAZY Specific [place] >1.030 (H) pH 5.5 Protein 100 (H) [...] Normal Follow up provider: Sumit Fernandez MD [facility] [address] [phone] In 4 days CHESTER CHILD Physician 05/17/2016 [...] 1:26 PM HST) Collection Method CLEAN CATCH [facility] Culture Details RESULT [facility] CENTRAL LAB Comment:NO GROWTH AT 2 DAYS 05/12/2016 1:26 PM HST 05/12/2016 1:52 PM HST Chester Child MD MICROBIOLOGY-ORDERAB LE Performing Organization Address [facility] de Phone Number LAB [facility] [phone] [place] [address] [facility] CENTRAL LAB [phone] [place] [address] * (ABNORMAL) UA, Complete, Reflex to C & S (05/12/2016 1:26 PM HST) Pathologist [facility] Color YELLOW [facility] Appearance HAZY [facility] Specific [place] >1.030(H) 1.005 - 1.030 [facility] pH 5.5 5 - 7.5 [facility] Protein 100(H) NEGATIVE mg/dl [facility] Glucose NEG NEGATIVE [facility] Ketones NEG NEGATIVE [facility] Urobilinogen 0.2 0.1 - 1.0 mg/dl [facility] Bilirubin NEG NEGATIVE [facility] Blood LARGE(H) NEGATIVE [facility] Leukocyte Esterase MOD(H) NEGATIVE [facility] Nitrite NEG NEGATIVE [facility] WBC >100(H) 0-5 WBC/hpf hpf [facility] RBC 51-100(H) 0-2 RBC/hpf hpf [facility] Bacteria MANY NONE [facility] Urine Culture/Sensiti vity REFER TO THE MICROBIOLOGY SECTION OF REPORT [facility] Urine specimen (specimen) URINE SPECIMEN OBTAINED BY CLEAN CATCH PROCEDURE / Unknown 05/12/2016 1:26 PM HST 05/12/2016 2:23 PM HST Chester Child MD URINALYSIS-ORDERABLE Performing Organization Address [facility] Co de Phone Number LAB [facility] [phone] [facility] [place] [address] [facility] [phone] [facility] [place] [address] * (ABNORMAL) Lipase (05/12/2016 1:25 PM HST) Lipase 10(L) 13 - 60 U/L [facility] 05/12/2016 1:25 PM HST 05/12/2016 1:31 PM HST Chester Child MD CHEMISTRY-ORDERABLE LAB [facility] [phone] [facility] Equallogiccarl Holl[facility] [place] [address] [facility] [phone] [facility] [place] [address] * (ABNORMAL) Comprehensive Metabolic Panel (CMP) (05/12/2016 1:25 PM HST) Pathologist [facility] Glucose 116(H) 70 - 99 mg/dL [facility] BUN 20 6 - 23 mg/dL [facility] Creatinine 1.3 0.6 - 1.4 mg/dL [facility] eGFR, MDRD, non- Am. 55(L) mL/min/1.7 3m(2) [facility] eGFR, MDRD, Am. >60 mL/min/1.7 3m(2) [facility] Comment: Reference Range of GFR for ages 60-69 is = or > 85 mL/min/1.73m(2) GFR < 60 ml/min/1.73m(2) = Chronic Kidney Disease. GFR < 15 ml/min/1.73m(2) = Kidney Failure. Sodium 142 133 - 145 mEq/L [facility] Potassium 4.6 3.3 - 5.1 mEq/L [facility] Chloride 102 95 - 108 mEq/L [facility] CO2 25 21 - 30 mEq/L [facility] Anion Gap 20 14 - 20 mEq/L [facility] Calcium 9.3 8.3 - 10.5 mg/dL [facility] SGOT (AST) 22 0 - 40 IU/L [facility] SGPT (ALT) 13 0 - 41 IU/L [facility] Alkaline Phosphatase 121 35 - 129 IU/L [facility] Bilirubin, Total 0.3 0 - 1.2 mg/dL [facility] Total Protein 7.2 6.4 - 8.3 gm/dL [facility] Albumin 4.3 3.5 - 5.2 gm/dL [facility] 05/12/2016 1:25 PM HST 05/12/2016 1:31 PM HST Chester Child MD CHEMISTRY-ORDERABLE [facility] [phone] [facility] [address] [facility] [phone] [place] [address] * CBC with Diff (05/12/2016 1:25 PM HST) White Blood Count 6.45 3.80 - 10.80 x10(3)/uL [facility] Red Blood Cell Count 4.74 4.00 - 6.20 x10(6)/uL [facility] Hemoglobin 14.8 13.7 - 17.5 g/dL [facility] Hematocrit 43.0 40.1 - 51.0 % [facility] MCV 90.7 79.4 - 98.[address] [facility] MCH 31.2 26.0 - 34.[address] [facility] MCHC 34.4 32.0 - 36.0 g/dL [facility] Neutrophil 63.2 34.0 - 72.0 % [facility] Lymphocyte 28.5 12.0 - 44.0 % [facility] Monocyte 6.0 0.0 - 12.0 % [facility] Eosinophil 1.2 0.0 - 7.0 % [facility] Basophil 0.9 0.0 - 2.0 % [facility] Nucleated RBC 0.0 0.0 - 0.2 /[address] [facility] Platelet Count 209 151 - 424 x10(3)/uL [facility] Imm Granulocyte 0.2 0.0 - 1.0 % [facility] Abs Neutrophils 4.07 1.56 - 6.20 x10(3)/uL [facility] Abs Imm Granulo 0.01 0.0 - 0.10 x10(3)/uL [facility] RDW 13.7 11.6 - 14.4 % [facility] 05/12/2016 1:25 PM HST 05/12/2016 1:31 PM HST Chester Child MD HEMATOLOGY-ORDERABLE [facility] [phone] [place] [address] [facility] [phone] [place] [address] documented in this encounter Visit Diagnoses Diagnosis Dysuria- Primary documented in this encounter
--- OUTSIDE RECORDS SUMMARY | 2024-04-27 03:54 | XMS_ITS | Encounter Summary ---
Author Organization [facility] Address [address] [place] [address] Care Team Providers Care Welder 2Nd Shift Name Role Phone Unavailable Primary Care Provider Unavailabl e Reason for Referral * Referral (Routine) - Closed Specialty Diagnoses / Procedures Referred By Tram griffin Referred To Contact Diagnoses Chronic pain of left knee Injury while running Procedures Outpatient Physical Therapy Evaluate and Treat Zbigniew Saavedra MD [phone] [phone] [facility] Physical Therapy [phone] [facility] [place] [address] Referral ID Status Reason Start Date Expiration Date Visits Re quested Visits Authorized [id number] Closed 01/12/2020 10 10 Reason for Visit * Reason Comments Followup Left knee pain.Aleena w MRI done at [facility]. Encounter Details Date Type Department Care Team (Late st Contact Info) Description 01/11/2020 2:30 PM HST Office Visit [facility] Orthopedics Clinic [phone] [facility] [address] [place] [address] Zbigniew Saavedra MD [phone] [place] [address] Chronic pain of left knee [...] file Gets together: Not on file Attends religion service: Not on file Active member of [...]
--- OUTSIDE RECORDS SUMMARY | 2024-04-27 03:54 | XMS_ITS | Encounter Summary ---
Author Organization [facility] Address [address] [place] [address] Care Team Providers Care Cigar Head Piercer Name Role Phone Unavailable Primary Care Provider Unavailabl e Encounter Details Date Type Department Care Team (Late st Contact Info) Description 01/04/2020 10:15 AM HST Ancillary Procedure [facility] Imaging Specialty [phone] [facility], [address] [place] [address] Zbigniew Saavedra MD [phone] [facility] [address] [place] [phone] Left knee pain, unspecified chronicity Discharge Disposition: [...] especially posteriorly. Narrative 01/04/2020 10:35 AM HST [facility] Specialty Clinic - Orthopedic Radiology Report Zbigniew Saavedra MD XRAY-ORDERABLE documented in this encounter Visit Diagnoses Diagnosis Left knee pain, unspecified chronicity documented in this encounter
--- OUTSIDE RECORDS SUMMARY | 2024-04-27 03:54 | XMS_ITS | Encounter Summary ---
Author Organization The [facility] Address [address] [place] [address] Care Team Providers Care Roving Can Tender Name Role Phone Unavailable Primary Care Provider Unavailabl e Reason for Visit * Reason Comments Consult Left knee pain. Refe rred by Jens Esposito. * Referral (Routine) - Closed Specialty Diagnoses / Procedures Referred By Tram griffin Referred To Contact Orthopedics Diagnoses Unilateral primary osteoarthritis, left knee Pain in left leg Jens Esposito MD [phone] [facility] [employer] [facility] [address] [place] [address] [facility] [phone] [facility] [address] [address] Referral ID Status Reason Start Date Expiration Date Visits Re quested Visits Authorized [id number] Closed 12/26/2019 12/25/2020 1 1 Encounter Details Date Type Department Care Team (Late st Contact Info) Description 01/04/2020 11:00 AM HST Office Visit [facility] Orthopedics Clinic [phone] [facility] [address] [place] [address] Joshua Patricio MD [phone] [facility] [address] [place] [address] Left knee pain, unspecified chronicity [...] LEFT knee MRI has been sent to [facility] Radiology Dept #[phone]. Please reach out to their office if [...] no relief. He has been using rare [place] with some help. He has no inflammatory [...] file Gets together: Not on file Attends samaritan service: Not on file Active member of [...] years ago when he was chopping some Listen [employer] rock and was diagnosed with some form [...] no relief. He has been using rare [place] with some help. He has no inflammatory [...] file Gets together: Not on file Attends samaritan service: Not on file Active member of [...] INTACT. THIS REPORT WAS ELECTRONICALLY SIGNED BY TMI AVILA. Narrative 01/07/2020 3:32 PM HST Result [...]
--- OUTSIDE RECORDS SUMMARY | 2024-04-27 03:54 | XMS_ITS | Encounter Summary ---
Author Organization The [facility] Address [address] [place] [address] Care Team Providers Care Bindery Machine Feeder Offbearer Name Role Phone Unavailable Primary Care Provider Unavailabl e Reason for Visit * (Routine) - Closed Specialty Diagnoses / Procedures Referred By Tram griffin Referred To Contact Radiology Procedures XR CHEST PA & LAT Sc Imaging Services [phone] [facility] [address] Referral ID Status Reason Start Date Expiration Date Visits Re quested Visits Authorized [id number] Closed 05/06/2017 1 1 Encounter Details Date Type Department Care Team (Late st Contact Info) Description 03/07/2016 11:30 AM HST - 03/07/2016 11:59 PM HST Hospital Encounter [facility] Imaging Services [phone] [facility] [address] Madan Esposito MD [phone] [phone] Discharge Disposition: D/C Home, Self Care Social [...]
--- OUTSIDE RECORDS SUMMARY | 2024-04-27 03:54 | XMS_ITS | Encounter Summary ---
Author Organization [facility] Address [address] [place] [address] Care Team Providers Care Day Care Worker Name Role Phone Unavailable Primary Care Provider Unavailabl e Reason for Referral * Referral (Routine) - Closed Specialty Diagnoses / Procedures Referred By Contac t Referred To Contact Diagnoses Muscle strain of lower leg, right, subsequent encounter Procedures Outpatient Physical Therapy Evaluate and Treat Jens Esposito MD [phone] [phone] [facility] [phone] [place] [address] Referral ID Status Reason Start Date Expiration Date Visits Re quested Visits Authorized [id number] Closed 11/04/2019 10 10 Reason for Visit * Referral (Routine) - Closed Specialty Diagnoses / Procedures Referred By Contac t Referred To Contact Diagnoses Muscle strain of lower leg, right, subsequent encounter Procedures Outpatient Physical Therapy Evaluate and Treat Jens Esposito MD [phone] [facility] [address] [place] [address] [facility] Op Physical Therapy [phone] [place] [address] Referral ID Status Reason Start Date Expiration Date Visits Re quested Visits Authorized [id number] Closed 11/04/2019 10 10 Encounter Details Date Type Department Care Team (Late st Contact Info) Description 12/27/2019 10:30 AM HST - 12/27/2019 11:59 PM HST Hospital Encounter [facility] [phone] [facility] [place] [address] Jens Esposito MD [phone] [facility]Y [address] [facility] [place] [phone] Jenn Brewer, PT Discharge Disposition: Still A [...] Code Treatment (Minutes): 15 minutes Therapeutic Exercise (03370): 1 Unit Therapeutic Exercise (Minutes): 15 Signed [...] of Service: 12/27/2019 Referring Physician / NPP: eJns Esposito MD Referral / Medical Diagnosis: Muscle strain of lower leg, right, subsequent encounter [S86.091D] Treatment Diagnosis: L knee pain [M25.562], L knee stiffness [M25.662], Difficulty walking [R26.2] ASSESSMENT / REASON FOR SKILLED THERAPY Patient is a 74 year old male presenting with pain, weakness, decreased range of motion and alteredgait status post injury 10/15/19 while running/jumping. He is alert and oriented x 4 and agrees to therapy. He has good potential to reach assisted goals. 12/27/2019 Pickle Processor Goals (see Duration below) 1) Pt to [...] with your patient. Please call me at [phone] if you haveany concerns. Jenn Elisabet Brewer, [...] listed functions with no restrictions. Preferred Language: Hong Konger [1] Patient / Caregiver Stated Goals: Decreased [...] Functional Outcome Scales Evaluation from 12/27/2019 in [facility] Lower Extremity % of Maximum Function 54 Charge: PT EVALUATION - LOW COMPLEXITY (08719): PT Evaluation - Low Complexity (05952) OUTPATIENT PHYSICAL THERAPY TREATMENT NOTE Visit #: [...] Code Treatment (Minutes): 15 minutes Therapeutic Exercise (93576): 1 Unit Therapeutic Exercise (Minutes): 15 Signed [...]
--- OUTSIDE RECORDS SUMMARY | 2024-04-27 03:54 | XMS_ITS | Encounter Summary ---
Author Organization [facility] Address [address] [place] [address] Care Team Providers Care Digital Cartographer Name Role Phone Unavailable Primary Care Provider Unavailabl e Reason for Visit * Referral (Routine) - Closed Specialty Diagnoses / Procedures Referred By Tram griffin Referred To Contact Radiology Procedures MRI KNEE WITHOUT IV CONTRAST Ky Mri [phone] [facility] [address] Referral ID Status Reason Start Date Expiration Date Visits Re quested Visits Authorized [id number] Closed 1 1 Encounter Details Date Type Department Care Team (Late st Contact Info) Description 01/06/2020 1:30 PM HST - 01/06/2020 11:59 PM T Hospital Encounter [facility] MRI [id number] [facility] [address] Joshua Patricio MD [phone] [facility] [address] [place] [phone] Discharge Disposition: D/C Home, Self Care Social [...]
[2024-04-28 15:49] LABS: PSA, Screening 4.3 ng/mL (<=6.5)
== END 2024-04-27 03:49 | disposition home or self-care (01) ==
LOC: LBO 03:49
PROVIDERS: PCP Family Medicine; Visit Provider Family Medicine
DX: N40.1 Benign prostatic hyperplasia with lower urinary tract symptoms (principal); N13.8 Other obstructive and reflux uropathy
CPT/HCPCS: 36415; 84153

== ENCOUNTER 2024-06-14 08:09 | Outpatient (REF) | payer MEDICARE, SELFPAY ==
--- NOTE | 2024-06-14 07:48 | SKI_PTH ---
PATIENT: Jens Ayala LOC: [facility] U#:[id number] AGE/SX: 79/M ROOM: RE06/14/[address]: Andrew Pelaez MD : [id number] BED: DIS: 06/14/2024 SPEC #: [id number] RECD: 06/14/24 12:49 STATUS: GISELA REQ #: [id number] DUNIA: 06/14/24 07:[address]: Andrew Pelaez DEPT: Surgical Specimen RECD BY: Aleksandra Pablo ENTERED: 06/14/24 12:49 SP TYPE: LUKE MURDOCK DR: Tyrese Lu DO Tissues: 1 - SKIN BIOPSY(SHAVE/PUNCH) Procedures: SKIN LEVEL 4 Comments: [id number]
== END 2024-06-14 08:10 | disposition home or self-care (01) ==
LOC: LBN 08:09
PROVIDERS: PCP Family Medicine; Visit Provider Otolaryngology
DX: L98.9 Disorder of the skin and subcutaneous tissue, unspecified (principal)
CPT/HCPCS: 88305

== ENCOUNTER 2024-10-09 13:37 | Emergency (ER) | payer MEDICARE, SELFPAY ==
[2024-10-09 13:40] VITALS: BP 156/91; PULSE 86; RESP 20; TEMP 36.7; O2SAT 95
--- NOTE | 2024-10-09 14:00 | DI.RAD_ITS ---
Exam(s) XR CHEST 2V PA LATERAL EXAM: XR CHEST 2V PA LATERAL CLINICAL HISTORY: cough, fever TECHNIQUE: 2D digital imaging was performed. Two views. COMPARISON: CR CHEST 2 VIEWS PA,LAT from 07/08/2008 CR CHEST 2 VIEWS PA,LAT from 01/26/2010 CT CHEST WITH CONTRAST from 05/14/2010 FINDINGS: HEART: Normal size. Aorta: Not dilated. PULMONARY VASCULATURE: Normal. MEDIASTINUM: Unremarkable. LUNGS: Clear. PLEURAL SPACE: No pleural effusion or pneumothorax. BONE:Unremarkable for age. SOFT TISSUES: Unremarkable. IMPRESSION: No acute abnormality. DATA REPOSITORY: RADIATION DOSE DELIVERED:
--- NOTE | 2024-10-09 14:12 | W.ED.GENAD ---
Discharge Plan Disposition Patient Disposition: Home Condition: Good Discharge Details Clinical Impression: COVID-19, Cough Primary Care Provider: Tyrese Lu ED Provider: Nguyen Topete Home Meds and New Rx's Prescriptions: New benzonatate 100 mg capsule 100 mg PO BID PRNQty: 10 0RF Continued Daily Essential Enzymes 500 mg PO DAILY atorvastatin [Lipitor] 20 mg tablet 40 mg PO HS Qty: 90 3RF amitriptyline 100 mg tablet 100 mg PO QHS Qty: 90 3RF B-complex with vitamin C Capsule 1 cap PO DAILY Qty: 90 3RF Linzess 145 mcg capsule 145 mcg PO DAILY Qty: 90 3RF prazosin 1 mg capsule 1 mg PO QHS Qty: 180 3RF Rx Instructions: Trial for poor sleep, night-terror/ptsd venlafaxine 225 mg tablet extended release 24hr 225 mg PO DAILY Qty: 90 3RF cholecalciferol (vitamin D3) 25 mcg (1,000 unit) capsule 25 mcg PO DAILY Qty: 90 3RF alprazolam 2 mg tablet 2 mg PO TID PRN (Reason: anxiety) Qty: 30 0RF tramadol 50 mg tablet 50 mg PO Q8H MDD 150 mg PRN (Reason: pain) Qty: 10 0RF Rx Instructions: Take as needed during overseas flights gabapentin 300 mg capsule 600 mg PO BID eszopiclone [Lunesta] 3 mg tablet 3 mg PO HS Discharge Instructions Instructions: COVID-19 ED Additional Instructions: You have COVID. Please isolate at home until at least 5 days from the start of symptoms; if at that point you are fever-free without the use of medication you can go out wearing a mask. You can take benzonatate up to every 12 hours for your cough. Please be extremely cautious storing this medication as even one pill can be deadly to young children. Tylenol and ibuprofen over the counter for fever and body aches; follow the directions on the bottle. Call your primary care doctor in the morning to schedule an appointment to followup on your visit here. Return to the emergency department for new or worsening symptoms including difficulty breathing, fever that does not respond to medication, chest pain, or if you have any other concerns. Referrals: Tyrese Lu DO [Primary Care Provider] - HPI General Date/Time Provider Initiated Documentation: 10/09/24 13:41. HPI Narrative: 79yo M with hx HLD, PTSD, presenting for two days of fever and cough. Cough is keeping him awake at night. No difficultly breathing. Tmax 101F. Associated diffuse body aches. No known sick contacts. UTD on covid booster and flu shot. No cardiopulmonary problems. Eating and drinking well. Otherwise in his usual state of health with no rash, nausea, vomiting, abdominal pain, chest pain, or other concerns. Related Data Home Medications ?Medication ?Instructions ?Recorded ?Confirmed B-complex with vitamin C 1 cap PO DAILY #90 caps 09/02/24 10/09/24 Daily Essential Enzymes 500 mg PO DAILY 09/02/24 10/09/24 amitriptyline 100 mg tablet 100 mg PO QHS #90 tabs 09/02/24 10/09/24 atorvastatin 20 mg tablet (Lipitor) 40 mg (2 x 20 mg) PO HS #90 tabs 09/02/24 10/09/24 cholecalciferol (vitamin D3) 25 25 mcg PO DAILY #90 caps 09/02/24 10/09/24 mcg (1,000 unit) capsule linaclotide 145 mcg capsule 145 mcg PO DAILY #90 caps 09/02/24 10/09/24 (Linzess) prazosin 1 mg capsule 1 mg PO QHS #180 caps 09/02/24 10/09/24 venlafaxine 225 mg tablet,extended 225 mg PO DAILY #90 tabs 09/02/24 10/09/24 release 24 hr alprazolam 2 mg tablet 2 mg PO TID PRN anxiety #30 tabs 09/30/24 10/09/24 tramadol 50 mg tablet 50 mg PO Q8H PRN pain #10 tabs 09/30/24 10/09/24 benzonatate 100 mg capsule 100 mg PO BID PRN #10 caps 10/09/24 eszopiclone 3 mg tablet (Lunesta) 3 mg PO HS 10/09/24 10/09/24 gabapentin 300 mg capsule 600 mg PO BID 10/09/24 10/09/24 Previous Rx's ?Medication ?Instructions ?Recorded B-complex with vitamin C 1 cap PO DAILY #90 caps 09/02/24 amitriptyline 100 mg tablet 100 mg PO QHS #90 tabs 09/02/24 atorvastatin 20 mg tablet (Lipitor) 40 mg (2 x 20 mg) PO HS #90 tabs 09/02/24 cholecalciferol (vitamin D3) 25 25 mcg PO DAILY #90 caps 09/02/24 mcg (1,000 unit) capsule linaclotide 145 mcg capsule 145 mcg PO DAILY #90 caps 09/02/24 (Linzess) prazosin 1 mg capsule 1 mg PO QHS #180 caps 09/02/24 venlafaxine 225 mg tablet,extended 225 mg PO DAILY #90 tabs 09/02/24 release 24 hr alprazolam 2 mg tablet 2 mg PO TID PRN anxiety #30 tabs 09/30/24 tramadol 50 mg tablet 50 mg PO Q8H PRN pain #10 tabs 09/30/24 benzonatate 100 mg capsule 100 mg PO BID PRN #10 caps 10/09/24 Allergies Allergy/AdvReac Type Severity Reaction Status Date / Time triazolam (From Halcion) Allergy Severe unknown Verified 10/09/24 13:45 General Stated Complaint: RespSymp CHIDI: 4 Review of Systems Narrative: see HPI Exam Narrative Exam Narrative: General: Alert, well appearing, well nourished, in no acute distress. Head: Normocephalic, atraumatic Neck: Trachea midline, ?Neck supple. ENT: ?MMM.? Cardiac: ?RRR, no murmurs appreciated Resp: No respiratory distress. ? slightly diminished breath sounds left upper, otherwise CTAB. Abd: ?Soft, non-distended, nontender Extremities: ?No deformities.? No peripheral edema. Neurologic: GCS 15. ? Moves all extremities freely against gravity Course Vital Signs Vital signs: Vital Signs Temperature 36.7 C 10/09/24 13:40 Pulse 86 10/09/24 13:40 Respiratory Rate 20 10/09/24 13:40 Blood Pressure 156/91 H 10/09/24 13:40 Pulse Oximetry 95 10/09/24 13:40 Temperature 36.7 C 10/09/24 13:40 Temperature Source Oral 10/09/24 13:40 Pulse 86 10/09/24 13:40 Respiratory Rate 20 10/09/24 13:40 Blood Pressure 156/91 H 10/09/24 13:40 Blood Pressure Position Sitting 10/09/24 13:40 Pulse Oximetry 95 10/09/24 13:40 Oxygen Delivery Method Room Air 10/09/24 13:40 Oxygen Flow Rate 0 10/09/24 13:40 Medical Decision Making 79yo M with hx HLD, PTSD, presenting for two days of fever and cough. No difficulty breathing or chest pain. Vital signs reassuring on arrival. No respiratory distress on exam, questionable diminshed breath sounds on left. Suspect most likely viral URI; will get CXR to evaluate for possible pneumonia. Respiratory viral swab + COVID CXR independently reviewed; no focal pneumonia on my view, radiology read below with no acute findings. Given age qualifies for treatment however multiple medication interaction with Paxlovid; offered molnupiravir instead though evidence in favor is not robust. Pt declined. Discharged home with prescription for benzonatate to followup with PCP. Importance of safely storing this medication ('one pill can kill' catagory for children) was reviewed. Discharge instructions and return precautions were reviewed with patient who verbalized understanding. All questions were answered and he is in full agreement with the plan. Imaging Data Radiologic Study: Imaging: X-Ray Radiologist's impression: 79yo M with hx HLD, PTSD, presenting for two days of fever and cough. Cough is keeping him awake at night. No difficultly breathing. Tmax 101F. Associated diffuse body aches. No known sick contacts. UTD on covid booster and flu shot. No cardiopulmonary problems. Otherwise in his usual state of health with no rash, nausea, vomiting, abdominal pain, chest pain, or other concerns. Lab Data Lab results reviewed: Yes I reviewed the patient's lab results. Labs: Laboratory Tests Range/Units 10/09/24 13:45 COVID-19 Source Nasopharynx SARS-CoV-2 (PCR) (Negative) Positive A Influenza Type A (PCR) (Negative) Negative Influenza Type B (PCR) (Negative) Negative RSV (PCR) (Negative) Negative Quality:SDOH Health Related Social Needs: No Data to Display PFSH All Active Problems (Updated 10/09/24 @ 14:48 by Nguyen Topete MD) Cough (Acute) COVID-19 (Acute) Idiopathic peripheral neuropathy (Chronic) Under the care of Guillaume Barron DPM @ [facility] Plantar fasciitis of left foot (Acute) Impacted cerumen, right ear (Acute) Skin lesion of face (Acute) Actinic keratosis (Acute) Erectile dysfunction (Acute) Irritable bowel syndrome (Chronic) Family history of prostate cancer (Acute) Onychogryphosis (Acute) Ingrown toenail (Acute) Nocturnal leg cramps (Acute) Polyarthritis (Acute) Swelling of knee joint, left (Acute) Lateral epicondylitis of both elbows (Acute) Plantar fascia syndrome (Acute) Anxiety disorder, unspecified (Acute) PTSD (post-traumatic stress disorder) (Acute) Sleep disorder (Acute) Contusion of left knee (Acute ~08/2023) Peripheral neuropathy (Acute) Narcotic dependence (Acute) Grief reaction (Chronic) Intermittent palpitations (Acute) Prediabetes (Acute) Right inguinal hernia (Acute) Left knee pain (Acute) Elevated blood pressure reading (Chronic) Sebaceous cyst (Acute) Anxiety (Chronic) with depression Hyperacusis (Acute) Restless leg (Chronic) Tinnitus (Chronic) ADD (attention deficit disorder) (Chronic) Insomnia (Chronic) Depression (Chronic) Hyperlipidemia (Chronic) BPH (benign prostatic hyperplasia) (Chronic) Neoplasm of uncertain behavior of skin (Acute) Onychomycosis (Acute) Achilles tendon contracture, bilateral (Acute) Plantar fasciitis, right (Acute) Tarsal tunnel syndrome, right lower limb (Acute) Medical History Chondromalacia of left patella Right elbow tendinitis Plantar fasciitis Surgical History H/O excision of epidermal inclusion cyst (~12/03/18) Inguinal hernia of right side without obstruction or gangrene (~06/10/23) H/O elbow surgery fascial release for ulnar nerve entrapment S/P TURP (status post transurethral resection of prostate) Family History Father Alcohol use disorder Hypertension Kidney disease Sister Anxiety Cancer breast Depression Hypertension Multiple sclerosis Maternal Grandfather Prostate cancer Heart disease Mother Muscular dystrophy Social History Smoking/Tobacco Use Status: Former Tobacco Use Tobacco: How many years used: 4 Second Hand Exposure: No Smoking risk assessment performed?: Yes Alcohol Intake: never Drug use: Never Substance use type: does not use Adopted: No Caregiver/Support person: No Foster care: No Housing: house Number of Children: 2 number of grandchildren: 1 Communication Needs: None Education Level: master's degree Do you need help understanding health information?: Never 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 Pets and animals: Yes (1) Pets and animals: dog(s) Sexually active: No Do you think of yourself as: straight/heterosexual Current gender identity: male What is your relationship status?: How often do you talk on the phone with friends or family?: three or more times per week How often do you get together with friends or relatives?: once per week Do you belong to any clubs or organized social groups?: no Panel score (0-1 are the most socially isolated patients): 1 Ashly/Scientologist: None Seatbelt use: always Drive intox or ride w/intox 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
[2024-10-09 14:31] LABS: Influenza A PCR Negative (Negative); Influenza B PCR Negative (Negative); RSV PCR Negative (Negative)
[2024-10-09 14:32] LABS: Source Nasopharynx
[2024-10-09 14:33] LABS: COVID-19 PCR Positive (Negative)
--- NOTE | 2024-10-09 15:04 | DI.VRAD_ITS ---
PROCEDURE INFORMATION: Exam: XR Chest Exam date and time: 10/09/2024 2:22 PM Age: 79 years old Clinical indication: Other: Cough, fever TECHNIQUE: Imaging protocol: Radiologic exam of the chest. Views: 2 views. COMPARISON: No relevant prior studies available. FINDINGS: Lungs: Unremarkable. No consolidation. Pleural spaces: Unremarkable. No pleural effusion. No pneumothorax. Heart/Mediastinum: Unremarkable. No cardiomegaly. Bones/joints: Unremarkable. IMPRESSION: No acute findings. Dictated and Authenticated by: Jovanni Crawford MD. Orderin Efrem Cedillo MD
== END 2024-10-09 15:24 | disposition home or self-care (01) ==
PROVIDERS: Emergency Medicine; Emergency Provider Student in an Organized Health Care Education/Training Program; PCP Family Medicine
DX: U07.1 COVID-19 (principal); E78.5 Hyperlipidemia, unspecified; Z87.891 Personal history of nicotine dependence
CPT/HCPCS: 87637; 99284; 71046; 99283

== ENCOUNTER 2025-01-26 15:15 | Outpatient (CLI) | payer MEDICARE, SELFPAY ==
--- NOTE | 2025-01-26 15:15 | RT.EKG_ITS ---
APPROVED REPORT Exam: Resting ECG Reason for Exam: irregular heart rhythm Patient Location: O HR:67 bpm ECG Measurements Heart Rate 67 AXIS VT 179 P 64 QRSd 87 QRS 3 QT 396 T 78 QTc 418 Conclusion Sinus rhythm...normal P axis, V-rate 50- 99 Ventricular trigeminy...trigeminy string>6 w/ V complexes Otherwise normal ECG
== END 2025-01-26 15:16 | disposition home or self-care (01) ==
LOC: DI.KIM 15:16
PROVIDERS: PCP Family Medicine; Visit Provider Family Medicine
DX: I49.9 Cardiac arrhythmia, unspecified (principal)
CPT/HCPCS: 93010

== ENCOUNTER 2025-02-10 10:57 | Outpatient (RCR) | payer MEDICARE, SELFPAY ==
--- NOTE | 2025-02-17 10:26 | W.HOLTRPT ---
Date of service: 02/17/25 Time of Service: 10:26 Holter Monitor Report Referring Provider:: Tyrese Lu Indications:: Palpitations Holter Monitor Note: This is a 48-hour Holter monitor. Rhythm throughout is sinus with an average heart rate of 76. Minimum was 44, maximum 105 There were frequent premature ventricular contractions comprising 11% of total. There was 1 ventricular triplet There were very rare isolated atrial premature beats. There was no atrial fibrillation, no high-grade AV block, no pauses greater than 3 seconds. No symptoms were reported
== END 2025-02-27 23:59 | disposition home or self-care (01) ==
LOC: CARDOPNVT 10:57
PROVIDERS: PCP Family Medicine; Referring Provider Family Medicine; Visit Provider Internal Medicine Cardiovascular Disease
DX: R00.2 Palpitations (principal); I49.1 Atrial premature depolarization; I49.3 Ventricular premature depolarization
CPT/HCPCS: 93225

== ENCOUNTER → 2025-03-30 09:00 | Outpatient (BNVA) | payer MEDICARE, SELFPAY | PROVIDERS: PCP Family Medicine; Referring Provider Family Medicine; Visit Provider Nurse Practitioner Gerontology | DX: N52.9 Male erectile dysfunction, unspecified (principal); Z80.42 Family history of malignant neoplasm of prostate | CPT/HCPCS: 99215 ==

== ENCOUNTER 2025-06-22 11:37 | Outpatient (CLI) | payer MEDICARE, SELFPAY ==
--- NOTE | 2025-06-22 11:30 | DI.RAD_ITS ---
Exam(s) XR LUMBAR SPINE COMPLETE EXAM: XR LUMBAR SPINE COMPLETE CLINICAL HISTORY: left sciatica, pain lt hip, M25.552. TECHNIQUE: 2D digital imaging was performed of the lumbar spine. Five images were obtained. AP, lateral, right oblique, left oblique and L5-S1 spot views were obtained. COMPARISON: No exams were available for comparison FINDINGS: BONES: No fracture or destructive lesion. There osteophytes at the endplates of most of the levels of the lumbar spine. Mild degenerative changes of the facets at L4-5 and L5-S1 are noted. DISKS: Intervertebral disc spaces are maintained. ALIGNMENT: Lumbar spinal alignment is within normal limits. No spondylolysis or spondylolisthesis. SOFT TISSUE: Atherosclerotic calcification is present. IMPRESSION: Mild degenerative changes in the lumbar spine. If there are radicular concerns, an MRI may should be considered for further evaluation. DATA REPOSITORY: RADIATION DOSE DELIVERED:
--- NOTE | 2025-06-22 11:30 | DI.RAD_ITS ---
Exam(s) XR HIP LT COMPLETE AP PELVIS EXAM: XR HIP LT COMPLETE AP PELVIS CLINICAL HISTORY: left sciatica, pain lt hip, M25.552. TECHNIQUE: 2D digital imaging was performed of the left hip. Three views were obtained. AP pelvis and lateral left hip views were obtained. COMPARISON: No exams were available for comparison FINDINGS: BONES: No acute fracture is present. No bony destructive lesion is seen. JOINTS: No dislocation present. The left hip is well maintained. The sacroiliac joints and symphysis pubis are unremarkable as is the right hip. SOFT TISSUE: Normal. IMPRESSION: Unremarkable left hip. DATA REPOSITORY: RADIATION DOSE DELIVERED:
== END 2025-06-22 11:57 ==
LOC: DI 11:38
PROVIDERS: PCP Family Medicine; Visit Provider Emergency Medicine
DX: M25.552 Pain in left hip (principal); M51.360 Other intervertebral disc degeneration, lumbar region with discogenic back pain only
CPT/HCPCS: 72110; 73502